=== PATIENT | male | born 1975 | race Caucasian/White ===

== ENCOUNTER → 2018-07-28 17:24 | Outpatient (REF) | payer BC, SELFPAY ==
[2018-07-28 22:23] LABS: ALT 32 U/L (12-78); AST 20 U/L (15-37); Albumin 4.3 g/dL (3.4-5.0); Alkaline Phosphatase 68 U/L (46-116); Anion Gap 4.6 mmol/L (3-11); BUN 17 mg/dL (7-18); Bilirubin, Total 0.7 mg/dL (0.2-1.0); CO2 31.4 mmol/L (21.0-32.0); CREATININE 1.18 mg/dL (0.70-1.30); Calcium 8.8 mg/dL (8.5-10.1); Chloride 104 mmol/L (98-107); Cholesterol 177 mg/dL (50-200); Glucose 84 mg/dL (70-100); HDL Cholesterol 52 mg/dL (40-60); LDL CHOLESTEROL 105 mg/dL (<100); Potassium 4.4 mmol/L (3.5-5.1); Sodium 140 mmol/L (136-145); Total Protein 7.3 g/dL (6.4-8.2); Triglyceride 113 mg/dL (30-150)
[2018-07-28 22:39] LABS: Hemoglobin A1C 4.9 % (4.5-6.2)
== END ==
LOC: NCHCN 17:24
PROVIDERS: PCP Internal Medicine; Visit Provider Family Medicine
DX: Z00.00 Encounter for general adult medical examination without abnormal findings (principal); G40.909 Epilepsy, unspecified, not intractable, without status epilepticus; E66.3 Overweight
CPT/HCPCS: 80053; 80061; 83721; 83036

== ENCOUNTER 2020-02-15 17:30 | Outpatient (REF) | payer MEDICAID, SELFPAY ==
[2020-02-15 21:14] LABS: HGB 14.5 g/dL (13.5-17.5); Mean Corp. HGB Concentration 33.7 g/dL (32.0-36.0); Mean Corpuscular Hemoglobin 29.5 pg (27.0-33.0); Mean Corpuscular Volume 87.4 fL (80-95); Mean Platelet Volume 9.8 fL (8.0-11.0); Platelet Count 318 x1000/uL (130-400); RBC 4.92 m/cumm (4.50-6.00); RBC Distribution Width 14.1 % (11.8-14.1); White Blood Cell Count 6.71 k/cumm (4.4-10.8)
[2020-02-15 21:35] LABS: ALT 38 U/L (16-63); AST 20 U/L (15-37); Albumin 4.1 g/dL (3.4-5.0); Alkaline Phosphatase 68 U/L (46-116); Anion Gap 7.9 mmol/L (3-11); BUN 13 mg/dL (7-18); Bilirubin, Total 0.3 mg/dL (0.2-1.0); CO2 30.1 mmol/L (21.0-32.0); CREATININE 1.27 mg/dL (0.70-1.30); Calcium 8.9 mg/dL (8.5-10.1); Chloride 105 mmol/L (98-107); Glucose 93 mg/dL (74-106); Potassium 3.8 mmol/L (3.5-5.1); Sodium 143 mmol/L (136-145); TSH (W/Ref FT4) 1.17 uIU/mL (0.36-3.74); Total Protein 7.5 g/dL (6.4-8.2)
[2020-02-17 04:36] LABS: Vitamin D 25 Total 19.5 ng/ml (30-100)
== END 2020-02-15 17:50 ==
LOC: NCHCN 17:30
PROVIDERS: PCP Internal Medicine; Visit Provider Family Medicine
DX: G40.909 Epilepsy, unspecified, not intractable, without status epilepticus (principal); R53.83 Other fatigue
CPT/HCPCS: 80053; 82306; 85027; 84443

== ENCOUNTER 2021-03-06 12:10 | Outpatient (REF) | payer MEDICAID, SELFPAY ==
[2021-03-07 14:14] LABS: COVID-19 RT-PCR UVMMC Result Negative (Negative)
== END 2021-03-06 12:11 | disposition home or self-care (01) ==
LOC: NCHCN 12:10
PROVIDERS: PCP Internal Medicine; Visit Provider Internal Medicine
DX: Z20.822 Contact with and (suspected) exposure to COVID-19 (principal); R05 Cough
CPT/HCPCS: U0003

== ENCOUNTER 2024-08-11 19:37 | Inpatient (IN) | payer BC, SELFPAY ==
[2024-08-11] VITALS (8 sets, daily range): BP systolic 117–136; BP diastolic 67–79; PULSE 96–109; RESP 12–18; TEMP 36.9–37.8; O2SAT 94–96
--- NOTE | 2024-08-11 20:05 | W.ED.GENAD ---
Discharge Plan Disposition Patient Disposition: Admit to [facility] Condition: Serious Discharge Details Chief Complaint: Fever Clinical Impression: Fever and neutropenia Primary Care Provider: Cholo Whitfield ED Provider: Shawanda Christensen Home Meds and New Rx's Prescriptions: No Action lamotrigine 200 mg tablet 200 mg PO BID Qty: 180 3RF Vimpat 200 mg tablet 100 mg PO BID Qty: 90 3RF ibuprofen 200 mg capsule 400 mg PO TID-QID PRN sulfamethoxazole-trimethoprim 800-160 mg tablet 1 tab PO DAILY Patient Comments: fri, fri acyclovir 400 mg tablet 400 mg PO BID allopurinol 300 mg tablet 300 mg PO DAILY prednisone 50 mg tablet 100 mg PO DAILY ondansetron 8 mg tablet,disintegrating 8 mg PO BID prochlorperazine maleate [Compazine] 10 mg tablet 10 mg PO TID sennosides [senna] 8.6 mg tablet 8.6 mg PO QD-BID PRN omeprazole 20 mg capsule,delayed release(DR/EC) 20 mg PO DAILY loratadine [Claritin] 10 mg tablet 10 mg PO DAILY HPI General Mode of arrival: ambulatory. Date/Time Provider Initiated Documentation: 08/11/24 19:43. Limitations to Documentation: no limitations. Information obtained by: patient, RN notes reviewed and old records reviewed. HPI Narrative: 48-year-old male with a past medical history of lymphoma presents to the ER with fever. He reports Advil was taken at 1845, he reports midepigastric pain. He did have a first round of chemotherapy on August 04. He also reports that his sister was just diagnosed with COVID. He denies any cough shortness of breath or any other associated symptoms. Reported fever at home was 101.9. Related Data Home Medications ?Medication ?Instructions ?Recorded ?Confirmed lamotrigine 200 mg tablet 200 mg PO BID #180 tabs 08/19/23 08/11/24 Vimpat 200 mg tablet (lacosamide) 100 mg (1/2 x 200 mg) PO BID #90 03/02/24 08/11/24 tabs acyclovir 400 mg tablet 400 mg PO BID 08/11/24 08/11/24 allopurinol 300 mg tablet 300 mg PO DAILY 08/11/24 08/11/24 ibuprofen 200 mg capsule 400 mg PO TID-QID PRN 08/11/24 08/11/24 loratadine 10 mg tablet (Claritin) 10 mg PO DAILY 08/11/24 08/11/24 omeprazole 20 mg capsule,delayed 20 mg PO DAILY 08/11/24 08/11/24 release ondansetron 8 mg disintegrating 8 mg PO BID 08/11/24 08/11/24 tablet prednisone 50 mg tablet 100 mg PO DAILY 08/11/24 08/11/24 prochlorperazine maleate 10 mg 10 mg PO TID 08/11/24 08/11/24 tablet (Compazine) sennosides 8.6 mg tablet (senna) 8.6 mg PO QD-BID PRN 08/11/24 08/11/24 sulfamethoxazole 800 1 tab PO DAILY 08/11/24 08/11/24 mg-trimethoprim 160 mg tablet Previous Rx's ?Medication ?Instructions ?Recorded lamotrigine 200 mg tablet 200 mg PO BID #180 tabs 08/19/23 Vimpat 200 mg tablet (lacosamide) 100 mg (1/2 x 200 mg) PO BID #90 03/02/24 tabs Allergies Allergy/AdvReac Type Severity Reaction Status Date / Time No Known Allergies Allergy Verified 08/11/24 19:43 General Stated Complaint: Fever CHRISTIE: 2 Review of Systems All systems reviewed & are unremarkable except as noted in HPI and below Constitutional Constitutional: Reports as per HPI, Reports body ache(s), Reports fatigue, Reports fever(s), Reports headache(s) and Reports lethargy ENT Ears, Nose, Mouth, and Throat: Reports headache(s) Musculoskeletal Musculoskeletal: Reports back pain Neurologic Neurologic: Reports headache(s) Endocrine Endocrine: Reports fatigue Exam Narrative Exam Narrative: Constitutional: Alert and oriented x3. Appears stated age. Normal body habitus. Head: Normocephalic, no trauma. Eyes: Pupils PERRL, Red reflex noted, lazy eye. Eyelids symmetrical without lesions, discharge, or swelling. ENT: Bilateral TM's WNL, External ear normal to inspection, no mastoid TTP, swelling, or erythema, Nasal turbinates WNL, no nasal discharge. Normal dentition, Posterior pharynx WNL, no exudate. Chest: RRR, Normal S1, S2, distal pulses intact. Resp: Lungs clear to auscultation bilaterally, no wheezes, rales, or rhonchi. Abdomen: Soft, non-distended, Normoactive bowel sounds all 4 quads. Musculoskeletal: Normal gait, Moves all 4 extremities without difficulty. Skin: No suspicious rashes or lesions. Capillary refill less than 2 sec. Neurologic: Cranial nerves II-XII intact. Alert and oriented x 3. Motor: No deficits noted. Sensory: Intact bilaterally all 4 extremities. Hematologic/Lymphatic: No ecchymosis, no lymphadenopathy. Course Vital Signs Vital signs: Vital Signs Temperature 37.8 C H 08/11/24 19:38 Pulse 109 H 08/11/24 19:38 Respiratory Rate 12 08/11/24 19:38 Blood Pressure 135/79 08/11/24 19:38 Pulse Oximetry 96 08/11/24 19:38 Temperature 37.8 C H 08/11/24 19:38 Temperature Source Oral 08/11/24 19:38 Pulse 109 H 08/11/24 19:38 Respiratory Rate 12 08/11/24 19:38 Respiratory Effort Normal 08/11/24 19:51 Blood Pressure 135/79 08/11/24 19:38 Pulse Oximetry 96 08/11/24 19:38 Oxygen Delivery Method Room Air 08/11/24 19:38 Oxygen Flow Rate 0 08/11/24 19:38 Pain Level 4 08/11/24 19:38 Medical Decision Making 48-year-old male with a past medical history of lymphoma presents to the ER with fever. He reports Advil was taken at 1845, he reports midepigastric pain. He did have a first round of chemotherapy on August 04. He also reports that his sister was just diagnosed with COVID. He denies any cough shortness of breath or any other associated symptoms. Reported fever at home was 101.9. Will do a rapid COVID if it is negative we will send 1 to the lab. Rapid COVID-negative, labs ordered including CBC CMP blood cultures x 2, lactate procalcitonin, chest x-ray. Urinalysis. Received critical result from lab white blood cell count 0.43, ANC count was 0 lactate is within normal limits 1.4, CRP is elevated at 2.81 urine shows no leukocytes no nitrates glucose 100, Fluvid is pending. Blood cultures pending. Lipase added on CT abdomen pelvis. 2155: [facility] [place] results with oncology team. 2236: Spoke with Michelle metz oncology fellow [place] [facility] [place] and details she does recommend admission until negative blood cultures return, and also for broad-spectrum IV antibiotics, she recommends cefepime and filgrastim and Claritin 10mg Daily, these were ordered. Will contact with hospitalist. Negative strep. CT abdomen pelvis shows splenomegaly, no acute abnormality evident. Some significant degenerative changes of the L-spine. Patient is complaining of some back pain. Spoke with Dr. Jimenez who is on for hospitalist regarding patient case and details he agrees to come and evaluate patient in the ER. Patient and family informed of plan of care they verbalized understanding. Patient to be admitted for neutropenic fever. This text was generated using Yunzhisheng[employer] system, please disregard any oddities of phrase or misspellings. Medical Records Medical records reviewed: Yes I reviewed the patient's medical records. Imaging Data Radiologic Study: Imaging: CT Scan Radiologist's impression: IMPRESSION: No acute abnormality evident. Incidentally noted mild splenomegaly as well as significant degenerative changes of the lumbosacral junction of the spine Thank you for allowing us to participate in the care of your patient. Dictated and Authenticated by: Dante Mills MD 08/11/2024 10:58 PM Eastern Time ([place] & [place]) Radiologic Study #2: Imaging: X-Ray Radiologist's impression: COMPARISON: No relevant prior studies available. FINDINGS: Tubes, catheters and devices: Left IJ infusion port in good position with the tip in the superior vena cava. Lungs: Unremarkable. No consolidation. Pleural spaces: Unremarkable. No pleural effusion. No pneumothorax. Heart/Mediastinum: Unremarkable. No cardiomegaly. Bones/joints: Unremarkable. IMPRESSION: No acute disease Lab Data Lab results reviewed: Yes I reviewed the patient's lab results. Labs: 08/11/24 21:20 Blood Blood Culture - Pending 08/11/24 21:03 Blood Blood Culture - Pending Laboratory Tests Range/Units 08/11/24 08/11/24 21:03 21:10 WBC (4.4-10.8) 10^3/uL 0.43 L* RBC (4.36-5.78) 10^6/uL 3.87 L Hgb (13.5-17.5) g/dL 11.7 L Hct (40.0-50.0) % 34.7 L MCV (80-95) fL 90 MCH (27.0-33.0) pg 30.2 MCHC (32.0-36.0) % 33.7 RDW (11.8-14.1) % 12.3 Plt Count (130-400) 10^3/uL 148 MPV (8.0-11.0) fL 9.3 Immature Gran % % 0.0 Neutrophils % % 0.0 Lymphocytes % % 72.0 Atypical Lymphs % % 4 Monocytes % % 6.0 Eosinophils % % 18.0 Basophils % % 0.0 Nucleated RBC % (0.0-0.3) % 0.0 Absolute Neutrophils (1.2-6.7) 10^3/uL 0.00 L* Absolute Lymphocytes (1.2-3.4) 10^3/uL 0.33 L Absolute Monocytes (0.1-0.8) 10^3/uL 0.03 L Absolute Eosinophils (0.0-0.7) 10^3/uL 0.08 Absolute Basophils (0.0-0.2) 10^3/uL 0.00 RBC Morphology Normal VBG Lactate (0.6-1.4) mmol/L 1.4 Sodium (136-145) mmol/L 138 Potassium (3.5-5.1) mmol/L 3.5 Chloride (98-107) mmol/L 102 Carbon Dioxide (21.0-32.0) mmol/L 31.6 Anion Gap (3-11) mmol/L 4.4 BUN (7-18) mg/dL 13 Creatinine (0.70-1.30) mg/dL 0.9 Est GFR (CKD-EPI 2020) (mL/min/1.73m2) 104.05 Glucose (74-106) mg/dL 110 H Calcium (8.5-10.1) mg/dL 8.9 Total Bilirubin (0.2-1.0) mg/dL 1.08 H AST (15-37) U/L 12 L ALT (16-63) U/L 22 Alkaline Phosphatase (46-116) U/L 76 C-Reactive Protein (<or=0.5) mg/dL 2.81 H Total Protein (6.4-8.2) g/dL 6.4 Albumin (3.4-5.0) g/dL 3.4 Procalcitonin ng/mL 0.1 Urine Color (Yellow) Yellow Urine Clarity (Clear) Sl Cloudy Urine pH (5-8) 8.5 H Ur Specific [place] (1.005-1.025) 1.020 Urine Protein (Neg-Trace) mg/dL Negative Urine Ketones (Negative) mg/dL Negative Urine Blood (Negative) Negative Urine Nitrite (Negative) Negative Urine Bilirubin (Negative) Negative Urine Urobilinogen (Up to 0.2) mg/dL >=8.0 H Ur Leukocyte Esterase (Negative) Negative Urine Glucose (Negative) mg/dL 100 H Quality:SDOH Health Related Social Needs: No Data to Display PFSH All Active Problems (Updated 08/11/24 @ 22:27 by Shawanda Christensen NP) Fever and neutropenia (Acute) Lymphoma (Acute) Depressive disorder (Chronic) Hand paresthesia (Acute) Wax in ear (Acute) Fatigue (Acute) Memory loss (Acute) Partial epilepsy (Acute) New onset headache (Acute) Medical History (Updated 08/11/24 @ 22:27 by Shawanda Christensen NP) Seizure, temporal lobe Lazy eye Surgical History History of cranial surgery L temporal lobectomy for seizures H/O vasectomy History of back surgery x3 at [facility]; last in 2003? Family History Father Diabetes Mother Alzheimer disease Sister Diabetes Social History Smoking/Tobacco Use Status: Never Smoking risk assessment performed?: Yes Alcohol Intake: never Details: OCCASTIONAL Substance use type: marijuana Details: CBD pen Household members: significant other Housing: house Number of Children: 3 current occupation: [employer] in [place] What is your relationship status?: Panel score (0-1 are the most socially isolated patients): 0 What type of physical activity do you participate in: walking Seatbelt use: always Do you feel safe at home: Yes Do you feel safe in your relationship?: Yes
--- NOTE | 2024-08-11 20:30 | DI.RAD_ITS ---
Exam(s) XR PORTABLE CHEST AP EXAM: XR PORTABLE CHEST AP CLINICAL HISTORY: Fever TECHNIQUE: 2D digital imaging was performed. COMPARISON: No exams were available for comparison FINDINGS: Port noted over left chest. LUNGS: Clear. No pleural abnormality seen. HEART: Normal size. AORTA: Normal diameter. BONES: Unremarkable for age. Soft tissues: Unremarkable. IMPRESSION: No acute findings. DATA REPOSITORY: RADIATION DOSE DELIVERED:
--- OUTSIDE RECORDS SUMMARY | 2024-08-11 20:34 | XMS_ITS | Continuity of Care Document ---
Author Organization [facility] Address [address] [place] [address] Care Team Providers Care Sewing Department Supervisor Name Role Phone [facility] Primary [facility] Physician [facility] [id number] Date(s): 05/13/24 - 05/13/24 [facility] [address] [place] [address] Discharge Disposition: Home or Self Care Attending Physician: Moisés Chery MD Admitting Physician: Moisés Chery MD Referring Physician: Moisés Chery MD Allergies, Adverse Reactions, Alerts No Known Medication Allergies Assessment and Plan Future Scheduled Tests Radiology* MRI Knee w/o Contrast Right 04/21/24 * US Biopsy Muscle 05/07/24 Immunizations Given and Recorded Vaccine Date Status Refusal Reason SARS-CoV-2 (COVID-19) mRNA-1273 vaccine 04/24/21 R ecorded SARS-CoV-2 (COVID-19) mRNA-1273 vaccine 03/28/21 R ecorded influenza virus vaccine, live 08/31/20 Recorded tetanus/diphth/pertuss (Tdap) adult/adol 03/09/20 Recorded Medications lamoTRIgine 200 mg oral tablet 200 mg = 1 tab, Oral, BID, # 180 tab, 0 Refill(s) Start Date: 06/27/22 Status: Ordered Vimpat 200 mg oral tablet Oral, BID, 1/2 tablet, 0 Refill(s) Start Date: 06/27/22 Status: Ordered Problem List Condition Confirmation Course Effective Dates Status Health St atus Informant Memory loss Confirmed Active Cough Confirmed Active Depressive disorder Confirmed 03/09/20 Active Epilepsy Confirmed 02/29/20 Active Fatigue Confirmed Active New onset headache Confirmed Active Heel pain Confirmed Active Lazy eye Confirmed 03/09/20 Active Neck swelling Confirmed Active Non-smoker Confirmed 06/22/21 Active Obstructive sleep apnea Confirmed Active Acute pain of right knee Confirmed Active Hand paresthesia Confirmed Active Seizure, temporal lobe Confirmed Active Wax in ear Confirmed Active Procedures Procedure Date Related Diagnosis Body Site Status Temporal lobe surgery 1998 Com pleted Procedure on back 1 Compl eted 13x Results Laboratory List Name Date Automated Diff 05/13/24 CBC w/ Diff 05/13/24 PT/ INR 05/13/24 Most recent to oldest [Reference Range]: 1 WBC [5.0-10.0 x10^3/mcL] 5.9 x10^3/mcL (05/13/24 4:03 PM) RBC [4.6-6.0 x10^6/mcL] 4.7 x10^6/mcL (05/13/24 4:03 PM) Neutro Auto [40.0-75.0 %] 60.0 % (05/13/24 4:03 PM) Lymph Auto [20.0-50.0 %] 29.8 % (05/13/24 4:03 PM) [place] Auto [2.0-15.0 %] 6.3 % (05/13/24 4:03 PM) Basophil Auto [0.0-1.0 %] 0.5 % (05/13/24 4:03 PM) Prothrombin Time [9.0-11.0 seconds] 10.6 seconds (05/13/24 4:03 PM) INR 1.1 1 *NA* (05/13/24 4:03 PM) MCV [80.0-96.0 fL] 87.3 fL (05/13/24 4:03 PM) MCHC [31.0-35.0 g/dL] 34.6 g/dL (05/13/24 4:03 PM) Hct [41.0-51.0 %] 40.7 % *LOW* (05/13/24 4:03 PM) MCH [26.0-32.0 pg] 30.3 pg (05/13/24 4:03 PM) Neutro Absolute 3.6 x10^3/mcL *NA* (05/13/24 4:03 PM) Hgb [14.0-18.0 g/dL] 14.1 g/dL (05/13/24 4:03 PM) Platelets [130-450 x10^3/mcL] 229 x10^3/ mcL (05/13/24 4:03 PM) RDW-CV [11.5-14.5 %] 13.0 % (05/13/24 4:03 PM) Imm Gran Auto [0.0-0.9 %] 0.5 % (05/13/24 4:03 PM) Eos, Auto [1.0-6.0 %] 2.9 % (05/13/24 4:03 PM) 1Interpretive Data: INR 2-2.5 Prophylaxis: Short term DVT INR 2-3 Prophylaxis: hip and femur surgery Therapy: DVT (3 mos) PE (3-6 mos) TIA (buttermaker) Atr Fib (nursing home) Syst. emb post RI Mitral Stenosis with emboli (buttermaker) Tissue prosthetic valves (3 mos min) INR 3-4.5 Therapy: recurrent DVT, PE (buttermaker) Prosthetic heart valves (nursing home) Social History Social History Type Response Smoking Status Smoking tobacco use: Never tobacco user;Never entered on: 01/08/24 Sex Male Patient Care team information Care Team Personnel Name: Danie Fuentes DO Position: PowerChart View Only Member Role: Primary Care Physician Address: Address: [place] [facility] [address] Care Team Related Persons Name: MELISSA MCKEON Address: Alternate [address] [facility] [id number] Address: Home [address] [facility] [id number] Name: LOBITO ARREDONDO Address: Home [address] [place] [phone]
--- OUTSIDE RECORDS SUMMARY | 2024-08-11 20:34 | XMS_ITS | Continuity of Care Document ---
Author Organization [facility] Address [address] [place] [address] Care Team Providers Care Lacquer Coater Name Role Phone Geeta [facility] Primary Care Physician [phone] [facility] [id number] Date(s): 05/06/24 - 05/06/24 [facility] [address] [place] [address] Discharge Disposition: Home Allergies, Adverse Reactions, Alerts No Known Medication Allergies Assessment and Plan Future Scheduled Tests Radiology* MRI Knee w/o Contrast Right 04/21/24 * XR Knee 3 Views Right 04/29/24 * US Biopsy Muscle 05/07/24 Immunizations Given [...] Procedure on back 1 Compl eted 13x Social History Social History Type Response Smoking Status Smoking tobacco use: Never tobacco user;Never entered on: 01/08/24 Sex Male Patient Care team information Care Team Personnel Name: Danie Fuentes DO Position: PowerChart View Only Member Role: Primary Care Physician Address: Address: [place] [address]- Name: Smita Allison MD Position: No Access Member Role: Informed Provider Address: Address: [place] [address]- Care Team Related Persons Name: MELISSA MCKEON Address: [facility] [address] [facility] [phone] Address: Home [address] [facility] [phone] Name: LOBITO ARREDONDO Address: Home [address] [facility] [id number]
--- OUTSIDE RECORDS SUMMARY | 2024-08-11 20:34 | XMS_ITS | Continuity of Care Document ---
Author Organization [facility] Address [address] [place] [address] Care Team Providers Care Email Campaign Specialist Name Role Phone Geeta [facility] Primary [facility] Physician [facility]counter [facility] Date(s): 04/21/24 - 04/21/24 [facility] [address] [place] [address] Discharge Disposition: Home Allergies, Adverse Reactions, Alerts No Known Medication Allergies Assessment and Plan Future Scheduled Tests Radiology* CT Neck Soft Tissue w/ Contrast 04/22/24 * MRI Knee w/o Contrast Right 04/21/24 Immunizations Given and Recorded Vaccine Date Status [...] Care team information Care Team Personnel Name: Geeta YANDanie DO Position: PowerChart View Only Member Role: Primary Care Physician Address: Address: [facility] [place] [address]- Name: Smita Allison MD Position: No Access Member Role: Informed Provider Address: Address: [address] [address]- Care Team Related Persons Name: LOBITO ARREDONDO Address: Home [address] [facility] [phone]
--- OUTSIDE RECORDS SUMMARY | 2024-08-11 20:34 | XMS_ITS | Continuity of Care Document ---
Author Organization [facility] Address [address] [place] [address] Care Team Providers Care Detail Manager Name Role Phone [facility] Primary [facility] Physician En[facility] [id number] Date(s): 04/22/24 - 04/22/24 [facility] [address] [place] [address] Discharge Disposition: Home Allergies, Adverse Reactions, Alerts [...] Member Role: Primary Care Physician Address: Address: [facility] [place] [address]- Name: Smita Allison MD Position: No Access Member Role: Informed Provider Address: Address: [address] [address]- Care Team Related Persons Name: LOBITO ARREDONDO Address: Home [address] [facility] [phone]
--- OUTSIDE RECORDS SUMMARY | 2024-08-11 20:34 | XMS_ITS | Continuity of Care Document ---
Author Organization [facility] Address [address] [place] [address] Care Team Providers Care Diet Kitchen Cook Name Role Phone [facility] Primary Care Physician [facility] [id number] Date(s): 05/04/24 - 05/04/24 [facility] [address] [place] [address] Encounter Diagnosis Neck swelling(Discharge Diagnosis) - 05/04/24 Discharge Disposition: Home or Self Care Attending Physician: Moisés Chery MD Admitting Physician: Moisés Chery MD Referring Physician: Moisés Chery MD Allergies, Adverse Reactions, Alerts No Known Medication Allergies Assessment and Plan Future Scheduled Tests Radiology* MRI Knee w/o Contrast Right 04/21/24 * XR Knee 3 Views Right 04/29/24 Immunizations Given and Recorded Vaccine Date Status [...] team information Care Team Personnel Name: [facility] Position: PowerChart View Only Member Role: Primary Care Physician Address: Address: [place] [address]- Name: Smita Allison MD Position: No Access Member Role: Informed Provider Address: Address: [address] Care Team Related Persons Name: MELISSA MCKEON Address: [facility][1] [address] [facility] [phone] Address: Home [address] [facility] [phone] Name: LOBITO ARREDONDO Address: Home [address] [facility] [phone]
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
--- OUTSIDE RECORDS SUMMARY | 2024-08-11 20:35 | XMS_ITS | Continuity of Care Document ---
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 Allergies, Adverse Reactions, Alerts No Known Medication Allergies Immunizations Given and Recorded Vaccine Date Status [...] [facility] atus Informant Memory loss Confirmed Active Depressive disorder Confirmed 03/09/20 Active Epilepsy Confirmed 02/29/20 Active Fatigue Confirmed Active New onset headache Confirmed Active Heel pain Confirmed Active 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
--- OUTSIDE RECORDS SUMMARY | 2024-08-11 20:35 | XMS_ITS | Clinical Summary ---
Author Organization [facility] Address [address] [place] [address] Care Team Providers Care Veterinary Medicine Scientist Name Role Phone Unknown, Provider Primary Care Provider Encounters Date Type Department Care Team Description 05/21/2024 Lab Requisition [facility] [address] [address] Catracho Hernandez MD Encounter for other general examination 05/19/2024 Lab Requisition [facility] [address] [address] Moisés Chery Encounter for other general examination 05/19/2024 Lab Requisition [facility] [address] [address] Moisés Chery MD Encounter for other general examination 05/19/2024 Lab Requisition [facility] [address] [address] Dwain Leroy MD Encounter for other general examination from Last 3 Months Social History Tobacco Use Types Packs/Day Years Used Date Smoking Tobacco: Never Assessed Sex and Gender Information Value Date Recorded Sex Assigned at Not on file Gender Identity Not on file Sexual Orientation Not on file Plan of Treatment Health Maintenance Due Date Last Done Comments Hepatitis C Screen 1975 Hepatitis B Vaccine (1 of 3 - 19+ 3-dose series) 10/27 COVID-19 Vaccine (2022- season) 2024 Procedures Procedure Name Priority Date/Time Associated Diagnosis Comments LEUKEMIA/LYMPHOMA PANEL BY FLOW CYTOMETRY Today 05/19/2024 17:26 EDT Encounter for other general examination SURGICAL PATHOLOGY Today 05/19/2024 13 :45 EDT Encounter for other general examination NON CONSULTING UTILITY FORESTER/FNA CYTOLOGY Today 05/19/2024 13:45 EDT Encounter for other general examination MISCELLANEOUS TEST, [facility] Today 05/19/2024 13:45 EDT Encounter for other general examination from Last 3 Months Results * LEUKEMIA/LYMPHOMA PANEL BY FLOW CYTOMETRY (05/19/2024 17:26 EDT) Final Immunophenotypic Interpretation Right cervical mass, flow cytometric analysis: - An aberrant [id number] B-cell population is identified. 14:30 [facility] Attestation By the signature below, the attending physician certifies that they have 1) personally conducted a gross and/or microscopic examination of the described specimen(s), and/or personally interpreted the results of laboratory testing of the described specimen(s), and 2) personally rendered or confirmed the above diagnosis. 14:30 [facility] Amendment electronically signed by Catracho Hernandez MD on 05/20/2024 at 1430 at 1422 Clinical History 48 yo male with neck mass 14:30 [facility] Description Gating is performed using CD45 fluorescence and side scatter. Cellular viability (assessed by 7-AAD exclusion) is excellent (96.8%) among cells with CD45 and side scatter properties typical of lymphocytes and excellent (95.6%) among CD45+ events overall. Scatter plots incorporating all of the markers have been interpreted and evaluated for the presence or absence of abnormal cell populations. Only pertinent abnormal findings are included. If not otherwise addressed all other markers were normal/negative. Lymphocytes constitute 94% of total analyzed cells. An aberrant Yetter light chain-restricted B-cell population is identified (33% of total lymphocytes), expressing CD10, CD19 and CD20 with a high side scatter; while negative for CD5 and Lambda light chain expression. 4 14:30 EDT [facility] Flow Markers CD10, CD19, CD20, CD3, CD4, CD45, CD5, CD8, Yetter, and Lambda. 14:30 EDT [facility] FDA Disclaimer This test was developed and its performance characteristics determined by the Department of Pathology and Laboratory Medicine, [facility], [place], [place]. It has not been cleared or approved by the U.S. Food and Drug Administration. FDA does not require this test to go through premarket FDA review. This test is used for clinical purposes. It should not be regarded as investigational or for research. This laboratory is certified under the Clinical Laboratory Improvement Amendments (CLIA) as qualified to perform high complexity clinical laboratory testing. 14:30 EDT [facility] Scanned Images 14:30 T [facility] ZZUNK SOFT TISSUE MASS / Unknown 05/19/2024 17:26 EDT 05/20/2024 7:24 EDT Moisés Chery MD PATHOLOGY ORDERABLES Performing Organization Address City/State/[facility] Co de Phone Number [facility] [address] [place] [phone] * NON CONSULTING UTILITY FORESTER/FNA CYTOLOGY (05/19/2024 13:45 EDT) Note to Patient The following pathology results have been interpreted by your pathologist and may be available to you before your health provider has had the opportunity to review them. Please allow time for your provider to receive these results and explore management options, if applicable. 05/24/2024 16:45 EDT [facility] Final Diagnosis A. NECK MASS (3 CM), RIGHT, IMMEDIATELY ADJACENT TO SUBMANDIBULAR GLAND, ULTRASOUND-GUIDED FINE NEEDLE ASPIRATION: - Atypical lymphocytes present. See comment. 05/24/2024 16:45 EDT [facility] Diagnosis Comment Please refer to the concurrent flow cytometry and surgical pathology specimens for further characterization ([id number], [id number]). The technical component of the specimen processing was performed at the [facility] Department, [address] [facility] [facility], [place], [place] [address] (CLIA [id number]). The professional component of the specimen evaluation (slide review and issuing of the final diagnosis) was performed at [facility], [address] [place] [address] (CLIA License Number [id number]). 05/24/2024 16:45 [facility] Attestation By the signature below, the attending physician certifies that they have personally conducted a gross and/or microscopic examination of the described specimens and rendered or confirmed the above diagnosis. 05/24/2024 16:45 [facility] at 1645 Rapid Diagnosis A.NECK MASS,3 CM,RIGHT,IMMEDIATE LY ADJACENT TO SUBMANDIBULAR GLAND,ULTRASOUND GUIDED FINE NEEDLE ASPIRATION: Evaluation Episode 1: Pass 1: Mostly dispersed population of small blue cells,probably background lymphoglandular bodies. Recommend cores for surgical pathology and flow cytometry. The above rapid on site evaluation was performed by pathologist Dr. Francis Rhodes at [facility], [address] [place] [id number]. 05/19/2024; 1345 05/24/2024 16:45 [facility] Clinical History 3cm mass immediately adjacent to but separate from left submandibular gland 05/24/2024 16:45 [facility] Gross Description A. 1 fixed prepared slides, 2 air dried prepared slides, and 1 tube of CytoLyt were received and processed by selective cellular enhancement technique. 05/24/2024 16:45 [facility] Performing Lab [facility] 16:45 [facility] Scanned Images 05/24/2024 16:45 [facility] ZZUNK SOFT TISSUE / Unknown 05/19/2024 13:45 EDT 05/20/2024 6:19 EDT Dwain Leroy MD PATHOLOGY ORDERABLES [facility] [address] [place] [address] * SURGICAL PATHOLOGY (05/19/2024 13:45 EDT) Note to Patient The following pathology results have been interpreted by your pathologist and may be available to you before your health provider has had the opportunity to review them. Please allow time for your provider to receive these results and explore management options, if applicable. 05/27/2024 11:41 EDT [facility] Final Diagnosis A. MASS, ADJACENT TO RIGHT SUBMANDIBULAR GLAND, CORE BIOPSY: - Large B-cell lymphoma. See comment. 05/27/2024 11:41 EDT [facility] Diagnosis Comment Histologic sections demonstrate minute fragments of tissue showing a proliferation of lymphocytes that are large in size with round to irregular nuclear contours, vesicular chromatin, and a variable amount of cytoplasm. By immunohistochemical staining, these cells are positive for CD20, BCL6, CD21, and CD23; they are negative for BCL2, MYC, CD30, and DASHA. Proliferation rate by Ki-67 is 40%. CD3 highlights background T-cells. Concurrent flow cytometric analysis ([id number]) shows a CD10 positive, kappa-restricted B-cell population that by light scatter criteria, are large in size. FISH for MYC rearrangements were performed (send out to [facility]) and showed no MYC rearrangement and no fusion of MYC and IGH was observed. Taken together, the findings show involvement by a large B-cell lymphoma and diagnostic considerations include follicular large B-cell lymphoma (FLBCL, WHO 2022; formerly follicular lymphoma grade 3B) and diffuse large B-cell lymphoma (DLBCL), germinal center subtype. Making the distinction between FLBCL and DLBCL is difficult on such a small biopsy, with limited architecture to evaluate. Additionally, the lymphoma cells are positive for CD21 and CD23, precluding definitive assessment for the presence or absence of follicular dendritic meshworks. If clinically indicated, obtaining additional tissue, preferably an excisional biopsy with submission of tissue for flow cytometry, is recommended. Occupational Therapy Aide slides of this case were reviewed at the intradepartmental consultation conference. 05/27/2024 11:41 T [facility] Attestation By the signature below, the attending physician certifies that they have 1) personally conducted a gross and/or microscopic examination of the described specimen(s), and/or personally interpreted the results of laboratory testing of the described specimen(s), and 2) personally rendered or confirmed the above diagnosis. 05/27/2024 11:41 [facility] at 1141 Preliminary result electronically signed by Millicent Chris MD on 05/25/2024 at 1533 Ancillary Studies Immunoperoxidase stains were performed on this case to further characterize the lesion. ANTIBODY(CLONE) (BLOCK):RESULT CD3 (SP7, [employer]) (A1): SEE ABOVE DISCUSSION CD20 (L26, [place]) (A1): BCL-6 (G/191E/A8, [place]) (A1): BCL-2 Oncoprotein (124, [place]) (A1): Myc (Y69, [employer]cam) (A1): CD30 (Dilip-H2, [place]) (A1): Ki67 (MIB-1) (K2, Leica) (A1): CD21 (2G9, Leica) (A1): CD23 (SP23, [place]) (A1): DASHA PURA (FVQ2298-Y, Leica) (A1): NOTE: One or more of the reagents used in immunoperoxidase testing in this case may not have been cleared or approved by the U.S. Food and Drug Administration (FDA). The FDA has determined that such clearance or approval is not necessary. These tests are used for clinical purposes. They should not be regarded as investigational or for research. These reagents' performance characteristics have been determined by [facility] and/or by the referring laboratory. The positive and negative controls worked appropriately. If immunoperoxidase staining has been performed on alcohol fixed cytology specimens, which has not been fully validated, the assays should be interpreted with caution and correlated with clinical data. This laboratory is certified under the Clinical Laboratory Improvement Amendments of 1988 (CLIA-88) as qualified to perform high complexity clinical laboratory testing. 05/27/2024 11:41 [facility] Clinical History 3 cm mass immediately adjacent to but separate from R submandibular gland 05/27/2024 11:41 [facility] Gross Description A. Received in formalin labelled with proper patient identification (initials C, D) and not otherwise specified are 2 pacheco-white wispy tissue cores (each 0.35 cm in length, and each less than 0.1 cm in diameter). Received in the same specimen container is an aggregate of pacheco-white wispy tissue core fragments (0.2 x 0.1 x 0.1 cm). The tissue cores are entirely submitted in A1 and the aggregate is entirely submitted in A2. Yuli Gallardo 05/20/2024 9:35 05/27/2024 11:41 EDT [facility] Performing Lab [facility] 05/27/2024 11:41 EDT [facility] Scanned Images 05/27/2024 11:41 EDT [facility] Tissue SOFT TISSUE / Unknown 05/19/2024 13:45 EDT 05/20/2024 7:17 EDT Moisés Chery PATHOLOGY ORDERABLES [facility] [address] [place] [address] * MISCELLANEOUS TEST, [facility]IM[facility] (05/19/2024 13:45 EDT) Miscellaneous Test, [facility] SEE NOTE 05/27/2024 7:16 EDT [facility] Comment: Test ?Result ?Flag ??Unit ??RefValue B-cell Lymphoma, FISH, Tissue ??Result Summary ?Negative ?Interpretation ?SEE NOTE ?No MYC rearrangement and no fusion of MYC and IGH was ?observed, therefore this makes unlikely the possibility of ?high-grade B-cell lymphoma with MYC and BCL2 and/or BCL6 ?rearrangements (double-hit lymphoma; Eddie et al., WHO ?Classification of Tumours of Haematopoietic and Lymphoid ?Tissues, [employer]:[place], 2017). ?Clinical and pathologic correlation is recommended. ?FISH studies interpreted in consultation with Lexii Castillo ?Danielle Gardner, Ph.D. ??Result Table ?SEE NOTE ? Abnormality Name ? Result ?Abn% ??Cutoff% ? 8q24.1(MYC sep) ?Normal ?<25.0 ? t(8;14) MYC/IGH fusion ? Normal ?<15.0 ?Result ?Interphase FISH is normal for all loci studied. ??Reason for Referral ? DLBCL ?Specimen ?Tissue, Paraffin, Formalin ??Source ?Right cervical mass ??Tissue ID ? [id number] ?Method ?SEE NOTE ?Locus and probes ?[Strategy;#Nuclei;Vendor] ?8CEN(D8Z2),8q24.1(MYC),14q32(IGH) ?[DFISH;100;AM] ?8q24.1(5'MYC,3'MYC) ?[BAP;100;AM] ?Probe strategies include: ?DFISH=dual color, double fusion; ?BAP=break-apart probe. ?Scoring Method: Manual ?Probe vendors include: ?AM = [employer] ([place], [place]) ??Additional Information ?SEE NOTE ?A portion of the testing process was performed at [facility] site [id number]. ??Disclaimer ?SEE NOTE ?This test was developed and its performance characteristics ?determined by [facility] in a manner consistent with CLIA ?requirements. This test has not been cleared or approved by ?the U.S. Food and Drug Administration. This test is ?intended to be used as an adjunct to existing clinical and ?pathologic information and is not intended as a sole ?diagnostic or screening assay. Since only a portion of the ?tumor was evaluated, it is possible the result obtained may ?not represent the entire tumor population. Testing results ?are optimized for non-decalcified paraffin embedded ?specimens with a cold ischemia time of less than 1 hour, ?fixed in 10% neutral buffered formalin between 6 and 72 ?hours; results obtained from specimens fixed outside these ?parameters should be interpreted accordingly. This test ?does not rule out other chromosome or molecular ?abnormalities. ??Released By ? Yuli L. Sami, M.D. ?Test Performed by: ?[facility] ?[address] [place] [address] ?Publications Inspector: Roberto Key Ph.D.; IA# [id number] Tissue TISSUE SPECIMEN / Unknown 05/19/2024 13:45 EDT 05/21/2024 15:24 EDT Catracho Finnegan MD CHEMISTRY & BLOOD GA S ORDERABLES [facility] [address] [place] [address] from Last 3 Months Care Teams Veterinary Medicine Scientist Relationship Specialty Start Date End Date Unknown, Provider, PCP - General 09/11/15
--- OUTSIDE RECORDS SUMMARY | 2024-08-11 20:35 | XMS_ITS | Encounter Summary ---
Author Organization [facility] Address [address] [place] [address] Care Team Providers Care Secretary Name Role Phone Unavailable Primary Care Provider Unavailabl e Encounter Details Date Type Department Care Team (Latest Contact Info) Description 09/01/2015 7:31 EDT - 09/01/2015 23:59 EDT Hospital Encounter [facility] [address] [place] [address] Unknown, Provider, Discharge Disposition: Home or Self Care Social History Tobacco Use Types Packs/Day Years Used Date Smoking Tobacco: Never Assessed Sex and Gender Information Value Date Recorded Sex Assigned at Not on file Gender Identity Not on file Sexual Orientation Not on file documented as of this encounter Discharge Disposition Disposition Code Departure Means Destination Home or Self Senior Living documented in this encounter Plan of Treatment Not on file documented as of this encounter Visit Diagnoses Not on filedocumented in this encounter
--- OUTSIDE RECORDS SUMMARY | 2024-08-11 20:35 | XMS_ITS | Continuity of Care Document ---
Author Organization [facility] Address [address] [place] [address] Care Team Providers Care Microsoft Crm Developer Name Role Phone [facility]eta [facility] Primary Care Physician [phone] Encounter [facility] Date(s): 05/07/24 - 05/07/24 [facility] [address] [place] [address] Discharge Disposition: Home Allergies, Adverse Reactions, Alerts [...] Member Role: Primary Care Physician Address: Address: [place] [address]- Name: Smita Allison MD Position: No Access Member Role: Informed Provider Address: Address: [place] [address]- Care Team Related Persons Name: MELISSA MCKEON Address: [facility] [address] [facility] [id number] Address: Home [address] [facility] [id number] Name: LOBITO ARREDONDO Address: [address] [phone]
--- OUTSIDE RECORDS SUMMARY | 2024-08-11 20:35 | XMS_ITS | Encounter Summary ---
Author Organization [facility] [place] [address] Care Team Providers Care Belling Machine Operator Name Role Phone ConnorDanie willis Primary Care Provider [phone] Encounter Details Date Type Department Care Team (Latest Contact Info) Description 08/11/2024 Travel Social History Tobacco Use Types Packs/Day Years Used Date Smoking Tobacco: Never Smokeless Tobacco: Never Alcohol Use Standard Drinks/Week Comments No 0 (1 standard drink = 0.6 oz pur e alcohol) IPV Inpatient Questions Answer Date Recorded Prevent Contact [...] Encounters Date Type Department Care Team (Late st Contact Info) Description 08/25/2024 9:00 AM EDT Office Visit Hematology/Oncology at [address] [phone] Pia Cooper MD [facility] [address] [place] [address] Shayla Vuong APRN [facility] [place] [address] 08/25/2024 9:30 AM EDT Scheduled View Only Hematology/Oncology at [address] [phone] Ekta Womack RN 08/25/2024 9:30 AM EDT Infusion Hematology Oncology at [address] [address] documented as of this encounter Visit Diagnoses Not on filedocumented in this encounter Care Teams Belling Machine Operator Relationship Specialty Start Date End Date Danie Connor DO [address] [place] [address] PCP - General Family Medicine 06/04/24 documented as of this encounter
--- OUTSIDE RECORDS SUMMARY | 2024-08-11 20:35 | XMS_ITS | Encounter Summary ---
Author Organization [facility] Address [address] [place] [address] Care Team Providers Care Systems Programmer Name Role Phone Unknown, Provider Primary Care Provider Encounter Details Date Type Department Care Team (Late st Contact Info) Description 03/06/2021 Lab Requisition [facility] Pathology & Laboratory Medicine - [address] [address] Outr Resulting Lab, Provider Social History Tobacco Use Types Packs/Day Years Used Date Smoking Tobacco: Never Assessed Sex and Gender Information Value Date Recorded Sex Assigned at Not on file Gender Identity Not on file Sexual Orientation Not on file documented as of this encounter Plan of Treatment Not on file documented as of this encounter Procedures Procedure Name Priority Date/Time Associated Diagnosis Comments ZZCOVID-19 TEST [facility] PCR Today 03/06/2021 9:10 EDT COVID-19 TESTING Routine 03/06/2021 9:10 EDT documented in this encounter Results * COVID-19 TEST [facility] PCR (03/06/2021 9:10 EDT) Swab ENTIRE NASOPHARYNX / Unknown 03/06/2021 9:10 EDT 03/06/2021 20:46 EDT Provider Outr Resulting Lab MICROBIOLOGY - GENERAL ORDERABLES [facility] [address] [place] [address] * COVID-19 TESTING (03/06/2021 9:10 EDT) COVID-19 rt-PCR Result Negative Negative 03/07/2021 14:08 EDT [facility] Comment: This test has not been FDA cleared or approved. This test has been authorized by FDA under an EUA for use by authorized laboratories. This test has been authorized only for detection of nucleic acid from 2019-nCoV, not for any other viruses or pathogens. This test is only authorized for the duration of the declaration that circumstances exist justifying the authorization of emergency use of in vitro diagnostic tests for detection and/or diagnosis of 2019-nCoV under section 564(b)(1) of Act, 21 U.S.C ?? 360bbb-3(b) (1), unless the authorization is terminated or revoked sooner. Negative results do not preclude 2019-nCoV infection and should not be used as the sole basis for treatment or other patient management decisions. Negative results must be combined with clinical observations, patient history, and epidemiological information. Testing was performed using the beulah SARS-CoV-2 assay ([employer] on the Beulah 6800 System Performing Lab [place] [address] [facility] 03/07/2021 14:08 EDT [facility] Swab 03/06/2021 9:10 EDT 03/06/2021 20:46 EDT Provider Outr Resulting Lab MICROBIOLOGY - GENERAL ORDERABLES [facility] [address] [place] [address] documented in this encounter Visit Diagnoses Not on filedocumented in this encounter Care Teams Systems Programmer Relationship Specialty Start Date End Date Unknown, Provider, PCP - General 09/11/15 documented as of this encounter
--- OUTSIDE RECORDS SUMMARY | 2024-08-11 20:35 | XMS_ITS | Encounter Summary ---
Author Organization [facility] [place] [address] Care Team Providers Care Global Implementation Manager Name Role Phone Geeta Danie Bustos Primary Care Provider [phone] Encounter Details Date Type Department Care Team (Late st Contact Info) Description 08/04/2024 8:00 AM EDT Office Visit Hematology/Oncology at [address] [phone] Shayla Vuong APRN [facility] [address] [place] [address] Need for pneumocystis prophylaxis; 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 of multiple regions; High risk medication use Social History Tobacco Use Types Packs/Day Years [...] on file documented as of this encounter Last Filed Vital Signs Vital Sign Reading Time Taken Comments Blood Pressure - - Pulse 77 08/04/2024 7:53 AM EDT Temperature 36 ??C (96.8 ??F) 08/04/2024 7:53 AM EDT Respiratory Rate 16 08/04/2024 7:53 AM EDT Oxygen Saturation 99% 08/04/2024 7:53 AM EDT Inhaled Oxygen Concentration - - Weight 90.7 kg (200 lb) 08/04/2024 7:53 AM EDT Height 168.9 cm (5' 6.5) 08/04/2024 7:53 AM EDT Body Mass Index 31.8 08/04/2024 7:53 AM EDT documented in this encounter Progress Notes * [place], Shayla M, [employer] - 08/04/2024 8:00 AM EDT OUTPATIENT HEMATOLOGY/ ONCOLOGY CONSULTATION HISTORY PRESENT ILLNESS This patient is a 48 y.o. male presenting for evaluation of lymphoma, with differential between high grade follicular and DLBCL. Initial Presentation (06/11/24): 48M w/ seizure disorder presents for evaluation of lymphoma. He had strep throat a few months ago, and was seen at doctors office. Due to pain in the area, he was palpating his neck, and found a hard submandibular mass. The doctor appropriately treated with antibiotics, and figured it was reactive. However, it increased in size (or did not resolve) after several weeks so a CT was performed, which showed the suspicious LN. That led to a core biopsy. He feels well. No constitutional symptoms. No throat pain or swallowing difficulties. Relevant PMHx/ risk factors: Seizure disorder Work up/ Pertinent Data Core biopsy- sheets of large cells, consistent with either follicular 3B or DLBCL Excisional Biopsy 06/28/24 A - Right submandibular mass Diffuse large B-cell lymphoma- NOS PET 06/25/24 1. An FDG avid right sided level 2A cervical lymph node is suspicious for a site of lymphoma. 2. There is asymmetrically increased activity in the right submandibular gland. Asymmetric salivarygland activity may be a physiologic variant but involvement by lymphoma is also a consideration. 3. No active lymphoma is identified in the chest, abdomen or pelvis. ECHO 06/24/24 - LVEF 56% Treatment Course Galo- R-CHP initiated on 08/04/24 INTERIM HISTORY Brett returns to clinic today in routine follow-up and in anticipation of initiation of systemic therapy with Galo-R-CHP today for his newly diagnosed DLBCL. It has been ~ 1 week since he was last seen in [place] by Dr. Herr. His care is being transferred to [facility] for convenience. Since our last visit, he denies changes to his baseline health. No fevers, chills, recurrent infections orintercurrent illnesses. No drenching sweats, unintentional weight loss or new enlarging palpable adenopathy. He underwent placement of a mediport on 07/27/24 in the upper left chest wall without complications. He does describe some pruritus from the tegaderm dressing. He is anxious to get therapy started today. No new health-related concerns expressed today. SOCIAL HISTORY- reviewed with significant changes noted Works at [employer] MEDICATIONS AND ALLERGIES- reviewed at this visit Medications 08/04/24 6269 Medication Sig Taking? Vimpat 200 mg Tablet Take 1/2 (one-half) tablet by mouth twice daily Yes lamoTRIgine (LaMICtal) 200 mg Tablet Take 1 tablet by mouth 2 times daily. Yes sulfamethoxazole-trimethoprim DS (Bactrim DS) 800-160 mg tablet One tablet every Fri, Fri acyclovir (Zovirax) 400 mg tablet Take 1 tablet by mouth 2 times daily. Patient not taking: Reported on 08/04/2024 allopurinoL (Zyloprim) 300 mg tablet Take 1 tablet by mouth daily for 30 days. Take for the first month of chemotherapy by mouth to prevent tumor lysis Patient not taking: Reported on 08/04/2024 prochlorperazine (Compazine) 10 mg tablet Take 1 tablet by mouth every 6 hours as needed for Nausea. Take every 6 hrs as needed for nausea Patient not taking: Reported on 08/04/2024 predniSONE (Deltasone) 50 mg tablet Take 2 tablets by mouth daily. Take on days 2-5 of each cycle of chemotherapy by mouth Patient not taking: Reported on 08/04/2024 ondansetron (Zofran) 8 mg tablet Take 1 tablet by mouth every 8 hours as needed for Nausea. Patient not taking: Reported on 08/04/2024 PAST MEDICAL HISTORY- reviewed Patient Active Problem List Diagnosis Code Seizure R56.9 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 of multiple regions C83.38 COMPREHENSIVE REVIEW OF SYSTEMS Besides what is mentioned in the HPI, all other systems are negative PHYSICAL EXAMINATION Vital signs: Pulse 77 Temp 36 ??C (96.8 ??F) (Temporal) Resp 16 Ht 168.9 cm (5' 6.5) Wt 90.7 kg (200 lb) SpO2 99% BMI 31.80 kg/m?? Constitutional/General: well-developed, well-nourished, well-appearing 48 year old male in NAD EENT: anicteric sclera, oropharnyx clear without hyperemia, exudative plaques or lesions. Neck/Thyroid: mild submandibular swelling on right at site of biopsy [unchanged] Lungs: clear to auscultation bilaterally Heart: RRR, normal S1/S2, no murmurs/rubs/gallops Abdomen: soft, non-distended, non-tender to palpation, no masses or HSM. NABS LN: no palpable adenopathy Ext: no edema Neurologic: moving all extremities spontaneously, grossly intact LABORATORY EVALUATION Recent Results (from the past 24 hour(s)) External Chemistry Lab Results Result Value Ref Range Creatinine - External 1.1 Potassium - External 3.6 AST (SGOT) - External 15 ALT (SGPT) - External 29 Total Bilirubin - External 0.54 LDH - External 191 External Hematology Lab Results Result Value Ref Range WBC - External 5.23 Hemoglobin - External 14.1 Hematocrit - External 41.6 Platelets - External 204 Neutr ABS (ANC) - External 3.28 RADIOLOGY: No new images reviewed today ASSESSMENT/PLAN: Brett Campos is a 48 y.o. male presents with what is now known to be DLBCL. Since our last visit, PET/CT has suggested disease localized to unilateral submandibular gland and possibly unilateral cervical lymph node. Excisional biopsy of submandibular mass revealed DLBCL. We discussed his overall disease, its natural course, treatment options, expected benefit, treatment intention, and side effect profile. Overall, treatment will be with curative intent. Based on our current imaging and pathology, he is either a stage 1 or 2 depending on if the cervical LN is involved. With this in mind, we plan to start systemic therapy with Galo-R-CHP. We plan to present his case at our lymphoma tumor board regarding the utility of radiation in his case. Anticipate overall either 6 cycles of systemic therapy or a truncated systemic therapy with addition of radiation based oninterval PET after cycle 4. - Proceed with initiation of Galo-R-CHP today as scheduled - Will give Allopurinol for TLS prophylaxis with cycle #1 - Udenyca support of day 2 of cycle [Neulasta-ONPRO not approved by insurance] - start PJP prophylaxis with Bactrim DS 1 tab daily on Friday, Friday and Fridays - start Acyclovir 400mg BID for suppression of herpes viruses - RTC in 2 weeks for a mid-cycle check - RTC in 3 weeks for initiation of cycle #3 - Brett was reminded that we remain available in the interim should questions/concerns arise - General medical care and age appropriate health screenings remain under the direction of DO Shayla Main, MSN, [employer] Nurse Practitioner Section of Hematology Cc: Danie oCnnor DO * Shayla Vuong APRN - 08/04/2024 8:00 AM EDT PATIENT ID: Brett Campos is a 48 y.o. male with Diffuse Large B-cell Lymphoma who presents today for chemotherapy teaching and initiation of cycle #1 of therapy. The plan is for Galo-R-CHP given every 21 days for 4-6 cycles. The following information was reviewed with the patient and family. Chemotherapy Drugs: Polatuzumab IV infused over 90 minutes on day 1 of cycle 1 and over 30 minutes for subsequent cycles Rituxan IV infusion lasting multiple hours given on day 1 of cycle with the possibility of decreasing infusion time to 90 minutes with subsequent cycles Cyclophosphamide IV infused over 30 minutes on day 1 of cycle Adriamycin IV push each syringe over a minimum of 3 minutes on day 1 of cycle Prednisone 50mg tablets. Take 2 tablets by mouth once daily with breakfast days 2-5. First dose will be given in clinic with chemotherapy on day 1 of each cycle Chemotherapy Schedule: chemotherapy is given in the outpatient setting on day 1 of a 21-day cycle Laboratory Tests: Prior to start of each cycle of chemotherapy: complete blood count, comprehensive metabolic profile, LDH, uric acid Mid-cycle check: complete blood count Restaging PET/CT following completion of four cycles of therapy Clinic Visits: at initiation of each chemotherapy cycle and with mid-cycle check for cycle #1 only Possible Side Effects include, but are not limited to: Polatuzumab: infusion reactions, myelosuppression, risk of infection, decreased appetite, nausea/vomiting, diarrhea, constipation, mouth sores, peripheral neuropathy, fatigue, headache, fever, cough,dyspnea Rituxan: infusion reactions, neutropenia, thrombopenia, lymphopenia, risk of reactivation of viral illnesses, anaphylaxis, PML, fatigue Cyclophosphamide: fatigue, N/V, immunosuppression, increased risk for infection, hair thinning/loss, rare hemorrhagic cystitis, cardiac dysfunction and pulmonary fibrosis. Adriamycin: fatigue, N/V, bone marrow suppression, risk for infection, alopecia, cardiomyopathy, oral sores, extravasation Vincristine: constipation, peripheral neuropathy, jaw pain Prednisone: increased energy, difficulty sleeping, increased appetite, weight gain, thrush, mood changes or irritability, hyperglycemia, hypertension, benson facies and body habitus changes, gastritis,increased risk of infection, cataracts and osteoporosis. Medications: please cloth picker the following prescriptions before you start treatment Allopurinol 300mg tablet - Take 1 tablet by mouth daily during cycle #1 to help protect kidneys andprocess the cellular debris as lymphoma cells in response to chemotherapy Prednisone 50mg tablets. Take 2 tablets by mouth once daily with breakfast days 2-5. First dose will be given in clinic with chemotherapy on day 1 of each cycle Acyclovir 400mg tablet - Take 1 tablet by mouth twice daily throughout chemotherapy course to minimize reactivation of viral illnesses Bactrim DS tablets - Take 1 tablet by mouth on Friday, Friday and Fridays to minimize risk of PJP pneumonia Compazine 10mg tablets - Take 1 tablet every 6 hours as needed for nausea/vomiting. Stool softener - Take 1 tablet by mouth daily to twice daily as needed to minimize constipation Senna tablet - Take 2 tablet by mouth daily to twice daily as needed to maintain daily bowel movement and avoid constipation Additional Education Tumor Lysis Syndrome: discussed the importance of hydration and allopurinol to TLS prophylaxis Chemotherapy induced alopecia Neutropenic Precautions: reviewed neutropenic precautions and use of Peg- Filgrastim to minimize depth and duration of neutropenia thereby decreasing potential risk of infection Hydration/Nutrition: Discussed the importance of adequate hydration, caloric and protein intake to heal from the effects of chemotherapy Fatigue and Exercise: Fatigue can be cumulative, meaning it can become worse with each treatment. Ways to manage fatigue include light exercise, maintaining a daily routine with rest periods, allowing your body to recover and avoiding overexertion. Safety while undergoing Chemotherapy women, children and pets should avoid contact with chemotherapy or contaminated waste Caregivers should always were gloves if coming in contact with bodily fluids Sexual Activity Chemotherapy can be harmful to an unborn baby. The use of control during cancer treatment is recommended if there is child bearing potential. Women should not breastfeed while undergoing chemotherapy. Traces of chemotherapy in bodily fluids may be present up to 72 hrs after receiving treatment. A barrier method, such as a condom, is recommended for intercourse during this time. Plan Brett Campos was provided with patient education sheets on these chemotherapeutic agents to review at home. He was provided with the [employer] booklet Chemotherapy and You: Support for People with Cancer. Brett and his family members were given an opportunity to ask questions and verbalized an unders tanding of the chemotherapy side effects and treatment self-care strategies and consent to proceed with treatment as planned. Chemotherapy is scheduled to begin today, August 04, 2024. Testing/Diagnostics Baseline blood work and echo were reviewed and are adequate for treatment Symptom Management/Supportive care Nausea prevention: Rx for Zofran, Compazine Constipation prevention: Recommended Colace and Senna Udenyca will be administered on day 2 of the cheno cycle Prophylaxis: Acyclovir, Bactrim DS 50 of this 60 minute visit was spent in counseling and education of the above information. All questions were answered to satisfaction. Brett Campos was counseled on how to call for any further questions or concerns. Shayla Vuong, MSN, [employer] Nurse Practitioner Section of Hematology/Oncology documented in this encounter Plan of Treatment Upcoming Encounters Date Type Department Care Team (Late st Contact Info) Description 08/25/2024 9:00 AM EDT Office Visit Hematology/Oncology at [address] [phone] Pia Cooper MD [facility] HEMATOLOGY [place] [address] Shayla Vuong APRN [facility] HEMATOLOGY [place] [address] 08/25/2024 9:30 AM EDT Scheduled View Only Hematology/Oncology at [address] [phone] Ekta Womack RN 08/25/2024 9:30 AM EDT Infusion Hematology Oncology at [address] [phone] Scheduled Orders Name Type Priority Associated Diagnoses Orde r Schedule Amylase Lab STAT 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 of multiple regions High risk medication use As Needed for 12 Occurrences starting 08/04/2024 until 08/04/2025 Lipase Lab STAT 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 of multiple regions High risk medication use As Needed for 12 Occurrences starting 08/04/2024 until 08/04/2025 documented as of this encounter Procedures Procedure Name Priority Date/Time Associated Diagnosis Comments EXTERNAL HEMATOLOGY LAB RESULTS Routine 08/04/2024 EXTERNAL CHEMISTRY LAB RESULTS Routine 08/04/2024 documented in this encounter Results * External Hematology Lab Results (08/04/2024) WBC - External 5.23 Hemoglobin - External 14.1 Hematocrit - External 41.6 Platelets - External 204 Neutr ABS (ANC) - External 3.28 08/04/2024 Historical Provider MD PEDRO JEFFRIES * External Chemistry Lab Results (08/04/2024) Creatinine - External 1.1 Potassium - External 3.6 AST (SGOT) - External 15 ALT (SGPT) - External 29 Total Bilirubin - External 0.54 LDH - External 191 08/04/2024 Historical Provider MD PEDRO JEFFRIES documented in this encounter Visit Diagnoses Diagnosis Need for pneumocystis prophylaxis Need for other prophylactic chemotherapy 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 of multiple regions High risk medication use Encounter for long-term (current) use of other medications documented in this encounter Care Teams Global Implementation Manager Relationship Specialty Start Date End Date Danie Connor DO [address] [place] [phone] PCP - General Family Medicine 06/04/24 documented as of this encounter
--- OUTSIDE RECORDS SUMMARY | 2024-08-11 20:35 | XMS_ITS | Encounter Summary ---
[place] [address] Care Team Providers Care Magnetic Observer Name Role Phone Geeta Danie Bustos Primary Care Provider [phone] Encounter Details Date Type Department Care Team (Late st Contact Info) Description 08/11/2024 Telephone Hematology [place] [phone] Michelle Cast MD [facility] [address] HEMATOLOGY/[place] [address] Social History Tobacco Use Types Packs/Day Years Used Date Smoking Tobacco: Never Smokeless Tobacco: Never Alcohol Use Standard Drinks/Week Comments No 0 (1 standard drink = 0.6 oz pur e alcohol) [facility] Inpatient Questions Answer Date Recorded Prevent Contact [...] on file documented as of this encounter Miscellaneous Notes * Telephone Encounter - Michelle Cast MD - 08/11/2024 6:58 PM EDT BRIEF COMMUNICATION WITH PATIENT'S CAREGIVER: Brett Campos is a 48yo M with DLBCL. He follows with Dr. Nemesio MD and Shayla Vuong APRN in the outpatient setting. He is currently on Galo-R-CHP. His last infusion was on 08/05/24. Per chart review he had seen Shayla Vuong APRN earlier in the day. Bloodwork was remarkable for neutropenia. Hematology was paged by the patient's caregiver as the patient was observed to have a fever of 101.9F and chills. I provided the patient's caregiver emotional support and recommended they proceed to the local ED for infectious workup in the setting of neutropenia. The patient's caregiver understood and agreed to the plan. Thank you for involving me in the care of the patient. Please call with any questions or concerns. CC-Dr. Nemesio MD and CLEMENTE Law MD [facility] [place] [facility] Hematology/Oncology Fellow [facility] Pager#[phone] documented in this encounter Plan of Treatment Upcoming Encounters Date Type Department Care Team (Late st Contact Info) Description 08/25/2024 9:00 AM EDT Office Visit Hematology/Oncology at [address] [phone] Pia Cooper MD [facility] [address] [place] [address] Shayla Vuong APRN [facility] [address] [place] [address] 08/25/2024 9:30 AM EDT Scheduled View Only Hematology/Oncology at [address] [phone] Ekta Womack RN 08/25/2024 9:30 AM EDT Infusion Hematology Oncology at [address] [phone] documented as of this encounter Visit Diagnoses Not on filedocumented in this encounter Care Teams Magnetic Observer Relationship Specialty Start Date End Date Danie Connor DO [address] [place] [phone] PCP - General Family Medicine 06/04/24 documented as of this encounter
--- OUTSIDE RECORDS SUMMARY | 2024-08-11 20:35 | XMS_ITS | Continuity of Care Document ---
Author Organization [facility] Address [address] [place] [address] Care Team Providers Care Forestry Support Specialist Name Role Phone Geeta ORDanie Barros Primary Care Physician Encounter [facility] Date(s): 02/12/24 - 02/12/24 [facility] [address] [place] [address] Encounter Diagnosis Viral URI(Discharge Diagnosis) - 02/12/24 Discharge Disposition: Home or Self Care Attending Physician: Jairon Mtz MD Admitting Physician: Jairon Mtz MD Allergies, Adverse Reactions, Alerts No Known Medication Allergies Assessment and Plan Extracted from: Title:ED Provider Note Author:Jairon Mtz MD Date:02/12/24 Assessment/Plan 1.??Viral URI??J06.9 Orders: Discharge Patient, 02/12/24 6:06:00 EDT, Home Independently, Constant Indicator Patient Education Upper Respiratory Infection, Adult Follow Up With When Contact Information Follow up with primary care provider Only if needed Additional Instructions: Extracted from: Title:Clinical Document Author:Lacey Oliver te:02/12/24 Diagnosis: 1. Viral URI Comment: Immunizations Given and Recorded Vaccine Date Status Refusal Reason SARS-CoV-2 (COVID-19) mRNA-1273 vaccine 04/24/21 R ecorded SARS-CoV-2 (COVID-19) mRNA-1273 vaccine 03/28/21 R ecorded influenza virus vaccine, live 08/31/20 Recorded tetanus/diphth/pertuss (Tdap) adult/adol 03/09/20 Recorded Medications lamoTRIgine 200 mg oral tablet 200 mg = 1 tab, Oral, BID, # 180 tab, 0 Refill(s) Start Date: 06/27/22 Status: Ordered Mucinex 600 mg oral tablet, extended release 600 mg = 1 tab, Oral, every 12 hr, X 10 days, # 20 tab, 0 Refill(s), 02/22/24 4:32:00 AM CDT Start Date: 02/12/24 Stop Date: 02/22/24 Status: Ordered Vimpat 200 mg oral tablet [...] Procedure on back 1 Compl eted 13x Vital Signs Most recent to oldest [Reference Range]: 1 Temperature Tympanic [36.6-38.1 Deg C] 3 6.3 Deg C *LOW* (02/12/24 5:23 AM) Heart Rate Monitored [60-100 bpm] 79 bpm (02/12/24 5:23 AM) Respiratory Rate [12-24 br/min] 18 br/mi n (02/12/24 5:23 AM) Blood Pressure [90-140/60-90 mmHg] 131/8 8mmHg (02/12/24 5:23 AM) Mean Arterial Pressure, Cuff [65-140 mmH g] 102 mmHg (02/12/24 5:23 AM) Weight 86 kg (02/12/24 5:23 AM) Weight Dosing 86.000 kg (02/12/24 5:23 AM) Social History Social History Type Response Smoking Status Smoking tobacco use: Never tobacco user;Never entered on: 01/08/24 Sex Male Hospital Discharge Instructions Patient Education 02/12/2024 05:07:20 Upper Respiratory Infection, Adult Upper Respiratory Infection, Adult An upper respiratory infection (URI) is a common viral infection of the nose, throat, and upper airpassages that lead to the lungs. The most common type of URI is the common cold. URIs usually get better on their own, without medical treatment. What are the causes? A URI is caused by a virus. You may catch a virus by: ??? Breathing in droplets from an infected person's cough or sneeze. ??? Touching something that has been exposed to the virus (is contaminated) and then touching your mouth, nose, or eyes. What increases the risk? You are more likely to get a URI if: ??? You are very young or very old. ??? You have close contact with others, such as at work, school, or a health care facility. ??? You smoke. ??? You have long-term (chronic) heart or lung disease. ??? You have a weakened disease-fighting system (immune system). ??? You have nasal allergies or asthma. ??? You are experiencing a lot of stress. ??? You have poor nutrition. What are the signs or symptoms? A URI usually involves some of the following symptoms: ??? Runny or stuffy (congested) nose. ??? Cough. ??? Sneezing. ??? Sore throat. ??? Headache. ??? Fatigue. ??? Fever. ??? Loss of appetite. ??? Pain in your forehead, behind your eyes, and over your cheekbones (sinus pain). ??? Muscle aches. ??? Redness or irritation of the eyes. ??? Pressure in the ears or face. How is this diagnosed? This condition may be diagnosed based on your medical history and symptoms, and a physical exam. Your health care provider may use a swab to take a mucus sample from your nose (nasal swab). This sample can be tested to determine what virus is causing the illness. How is this treated? URIs usually get better on their own within 7???10 days. Medicines cannot cure URIs, but your health care provider may recommend certain medicines to help relieve symptoms, such as: ??? Ohrs-udg-qpmuqlo cold medicines. ??? Cough suppressants. Coughing is a type of defense against infection that helps to clear the respiratory system, so take these medicines only as recommended by your health care provider. ??? Fever-reducing medicines. Follow these instructions at home: Activity ??? Rest as needed. ??? If you have a fever, stay home from work or school until your fever is gone or until your health care provider says your URI cannot spread to other people (is no longer contagious). Your health care provider may have you wear a face mask to prevent your infection from spreading. Relieving symptoms ??? Gargle with a mixture of salt and water 3???4 times a day or as needed. To make salt water, completely dissolve ?1 tsp (3???6 g) of salt in 1 cup (237 mL) of warm water. ??? Use a cool-mist humidifier to add moisture to the air. This can help you breathe more easily. Eating and drinking ??? Drink enough fluid to keep your urine pale yellow. ??? Eat soups and other clear broths. General instructions ??? Take sdjn-dud-fsrzwuy and prescription medicines only as told by your health care provider. These include cold medicines, fever reducers, and cough suppressants. ??? Do not use any products that contain nicotine or tobacco. These products include cigarettes, chewing tobacco, and vaping devices, such as e-cigarettes. If you need help quitting, ask your health care provider. ??? Stay away from secondhand smoke. ??? Stay up to date on all immunizations, including the yearly (annual) flu vaccine. ??? Keep all follow-up visits. This is important. How to prevent the spread of infection to others URIs can be contagious. To prevent the infection from spreading: ??? Wash your hands with soap and water for at least 20 seconds. If soap and water are not available, use hand technical director. ??? Avoid touching your mouth, face, eyes, or nose. ??? Cough or sneeze into a tissue or your sleeve or elbow instead of into your hand or into the air. Contact a health care provider if: ??? You are getting worse instead of better. ??? You have a fever or chills. ??? Your mucus is brown or red. ??? You have yellow or brown discharge coming from your nose. ??? You have pain in your face, especially when you bend forward. ??? You have swollen neck glands. ??? You have pain while swallowing. ??? You have white areas in the back of your throat. Get help right away if: ??? You have shortness of breath that gets worse. ??? You have severe or persistent: ??? Headache. ??? Ear pain. ??? Sinus pain. ??? Chest pain. ??? You have chronic lung disease along with any of the following: ??? Making high-pitched whistling sounds when you breathe, most often when you breathe out (wheezing). ??? Prolonged cough (more than 14 days). ??? Coughing up blood. ??? A change in your usual mucus. ??? You have a stiff neck. ??? You have changes in your: ??? Vision. ??? Hearing. ??? Thinking. ??? Mood. These symptoms may be an emergency. Get help right away. Call 911. ??? Do not wait to see if the symptoms will go away. ??? Do not drive yourself to the hospital. Summary ??? An upper respiratory infection (URI) is a common infection of the nose, throat, and upper air passages that lead to the lungs. ??? A URI is caused by a virus. ??? URIs usually get better on their own within 7???10 days. ??? Medicines cannot cure URIs, but your health care provider may recommend certain medicines to help relieve symptoms. This information is not intended to replace advice given to you by your health care provider. Make sure you discuss any questions you have with your health care provider. Document Revised: 06/19/2022 Document Reviewed: 06/19/2022 [employer] Patient Education ?? 2022 [employer]. Follow Up Care 02/12/2024 05:23:43 With:Follow up with primary care provider Address: When: only if needed Physician Emergency department Note * Jairon Mtz MD: PERFORM Event Display: ED Note Physician Authored Date: [id number] MO MCKEON :1975 Age:48 years Sex:Male Visit Date:02/12/2024 Primary Care Physician: Danie Fuentes DO Basic Information ??No qualifying data available.?? Chief Complaint c/o cough x 3 days. ??sore throat started this morning. ??denies fever or other sx. ??taking OTC mucinex History Of Present Illness: 48-year-old male non-smoker but who lives with a smoker??and is exposed to passive smoke I believe presents because of a 3-day history of a harsh cough.?? His throat was sore this morning also. ??No fever or chills no chest pain no abdominal pain no vomiting and diarrhea or leg swelling.?? Has somenasal congestion.?? He does bring up some mucus.?? Report any shortness of breath.?? 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 ??Does not feel he could work with his symptoms at this time.?? He has used some Mucinex. Review of Systems: Constitutional:??no??fever,? Skin:??no??Jaundice,??no??rash,? ENMT:??no??ear pain,??mild??sore throat,??moderate??congestion,??no??hoarseness Respiratory:??no??shortness of breath,??moderate??cough,??no??orthopnea,??no??wheezing Cardiovascular:??no??chest pain,??no??palpitations,??no??edema Gastrointestinal:??no??nausea,??no??vomiting,??no diarrhea no abdominal pain ?? Musculoskeletal:??no??back pain,??no??trauma Neurologic:??no??headache,??no??dizziness,??no??numbness,??no??weakness ?? Physical Exam Vitals & Measurements T:??36.3?C ??(Tympanic)?? HR:??79??(Monitored)?? RR:??18?? BP:??131/88?? SpO2:??98%?? WT:??86??kg?? O2 Therapy:??Room air?? General:??alert,??no acute distress.?? Does not look septic skin is warm and dry??no respiratory distress??sounds congested Skin:??warm,??dry. Head:??no??trauma,??normocephalic. Neck:??trachea??midline,? Eye:??normal??conjunctiva, sclera??clear.?? Strabismus noted Nose: Congested Mouth and throat: No erythema or exudate or swelling Cardiovascular:??regular??rate and rhythm,??normal??peripheral perfusion. Respiratory: lungs??CTA, respirations??non-labored.?? No adventitious lung sounds.?? Perhaps slightdecreased breath sounds noted. Chest wall:??no??deformity. Gastrointestinal:??soft,??non distended,??no??tenderness,??no??guarding. Extremities:??no??deformity,?? No swelling Neurological:?? , LOC??appropriate for age,?? , speech??normal. Psychiatric:??cooperative, affect??appropriate for age,?? Medical Decision Making: Differential diagnosis includes viral upper respiratory tract infection, no clinical signs of bacterial pneumonia.?? Conceivably could have COVID or RSV or??flu.?? Patient stable here,??no significant comorbidities. ??His sat is 98% on room air.?? Will provide a work note??for the next couple days,will recommend symptomatic treatment,??he can continue with the Mucinex. ??I did suggest Sudafed celena day and NyQuil at night.?Discharged in stable condition Procedure No Qualifying Data Assessment/Plan 1.??Viral URI??J06.9 Orders: Discharge Patient, 02/12/24 6:06:00 EDT, Home Independently, Constant Indicator Patient Education Upper Respiratory Infection, Adult Follow Up With When Contact Information Follow up with primary care provider Only if needed Additional Instructions: Medication Reconciliation Unchanged guaiFENesin (Mucinex 600 mg oral tablet, extended release)1 tab Oral (given by mouth) every 12 hours for 10 Days. ?? lacosamide (Vimpat 200 mg oral tablet)Oral (given by mouth) 2 times a day. 1/2 tablet. ?? lamoTRIgine (lamoTRIgine 200 mg oral tablet)1 tab Oral (given by mouth) 2 times a day. Problem List/Past Medical History Ongoing Cough Depressive disorder Epilepsy Fatigue Hand paresthesia Heel pain Lazy eye Memory loss New onset headache Non-smoker Obstructive sleep apnea Seizure, temporal lobe Wax in ear Historical No qualifying data Procedure/Surgical History ???Temporal lobe surgery (1998)???Procedure on back Allergies No Known Medication Allergies Social History Electronic Cigarette/Vaping Electronic Cigarette Use: Never. Tobacco Never tobacco user Tobacco Use:. Never Smokeless Tobacco use:. Family History Alzheimer's disease: Mother. Dementia: Father. Diabetes mellitus: Father. Electronically Signed on 02/12/24 06:27 AM Jairon Mtz MD Emergency department Discharge instructions * Jairon Mtz MD: PERFORM Event Display: ED Discharge Information Authored Date: [id number] MO MCKEON :1975 Age:48 years Sex:Male Visit Date:02/12/2024 Primary Care Physician: Danie Fuentes DO Discharge Instructions We would like to thank you for allowing us to assist you with your healthcare needs. The following includes patient education materials and information regarding your injury/illness. Diagnosis from Today's Visit Viral URI Discharge Vitals Temperature??(Tympanic) 97.3 ??F (36.3 ??C) Heart Rate??(Monitored) 79 Respiratory Rate?? 18 Blood Pressure?? 131/88?? SpO2?? 98% Weight?? 189.63 lb (86 kg) Allergies No Known Medication Allergies What to Do Next Instructions from Your Care Team you??can continue the Mucinex. ??For the congestion he can also take some Sudafed??in the daytime for the congestion??and NyQuil at night.?? May take some Motrin or Tylenol as needed for body aches or fever or sore throat. ??There should be gradual improvement.?? See work note. You Need to Schedule the Following Appointments Follow Up with??Follow up with primary care provider When:??Only if needed You were treated today on an emergency basis; it may be busby to contact your primary care provider to notify them of your visit today. You may have been referred to your regular doctor or a specialist, please follow up as instructed. If your condition worsens or you can't get in to see the doctor, contact the Emergency Department. Medications What How Much When Instructions Next Dose Unchanged guaiFENesin (Mucinex 600 mg oral tablet, extended release) 1 tab Oral (given by mouth) Every 12 hours Duration: 10 Days Unchanged lacosamide (Vimpat 200 mg oral tablet) Oral (given by mouth) 2 times a day 1/ 2 tablet ?? Unchanged lamoTRIgine (lamoTRIgine 200 mg oral tablet) 1 tab Oral (given by mouth) 2 times a day Education Materials Upper Respiratory Infection, Adult An upper respiratory infection (URI) is a common viral infection of the nose, throat, and upper airpassages that lead to the lungs. The most common type of URI is the common cold. URIs usually get better on their own, without medical treatment. What are the causes? A URI is caused by a virus. You may catch a virus by: ? Breathing in droplets from an infected person's cough or sneeze. ? Touching something that has been exposed to the virus (is contaminated) and then touching your mouth, nose, or eyes. What increases the risk? You are more likely to get a URI if: ? You are very young or very old. ? You have close contact with others, such as at work, school, or a health care facility. ? You smoke. ? You have long-term (chronic) heart or lung disease. ? You have a weakened disease-fighting system (immune system). ? You have nasal allergies or asthma. ? You are experiencing a lot of stress. ? You have poor nutrition. What are the signs or symptoms? A URI usually involves some of the following symptoms: ? Runny or stuffy (congested) nose. ? Cough. ? Sneezing. ? Sore throat. ? Headache. ? Fatigue. ? Fever. ? Loss of appetite. ? Pain in your forehead, behind your eyes, and over your cheekbones (sinus pain). ? Muscle aches. ? Redness or irritation of the eyes. ? Pressure in the ears or face. How is this diagnosed? This condition may be diagnosed based on your medical history and symptoms, and a physical exam. Your health care provider may use a swab to take a mucus sample from your nose (nasal swab). This sample can be tested to determine what virus is causing the illness. How is this treated? URIs usually get better on their own within 7???10 days. Medicines cannot cure URIs, but your health care provider may recommend certain medicines to help relieve symptoms, such as: ? Kxnk-ydx-bxafrzo cold medicines. ? Cough suppressants. Coughing is a type of defense against infection that helps to clear the respiratory system, so take these medicines only as recommended by your health care provider. ? Fever-reducing medicines. Follow these instructions at home: Activity ? Rest as needed. ? If you have a fever, stay home from work or school until your fever is gone or until your health care provider says your URI cannot spread to other people (is no longer contagious). Your health care provider may have you wear a face mask to prevent your infection from spreading. Relieving symptoms ? Gargle with a mixture of salt and water 3???4 times a day or as needed. To make salt water, completely dissolve ?1 tsp (3???6 g) of salt in 1 cup (237 mL) of warm water. ? Use a cool-mist humidifier to add moisture to the air. This can help you breathe more easily. Eating and drinking ? Drink enough fluid to keep your urine pale yellow. ? Eat soups and other clear broths. General instructions ? Take jimh-ctl-apiczvu and prescription medicines only as told by your health care provider. These include cold medicines, fever reducers, and cough suppressants. ? Do not use any products that contain nicotine or tobacco. These products include cigarettes, chewing tobacco, and vaping devices, such as e-cigarettes. If you need help quitting, ask your health careprovider. ? Stay away from secondhand smoke. ? Stay up to date on all immunizations, including the yearly (annual) flu vaccine. ? Keep all follow-up visits. This is important. How to prevent the spread of infection to others URIs can be contagious. To prevent the infection from spreading: ? Wash your hands with soap and water for at least 20 seconds. If soap and water are not available, use hand technical director. ? Avoid touching your mouth, face, eyes, or nose. ? Cough or sneeze into a tissue or your sleeve or elbow instead of into your hand or into the air. Contact a health care provider if: ? You are getting worse instead of better. ? You have a fever or chills. ? Your mucus is brown or red. ? You have yellow or brown discharge coming from your nose. ? You have pain in your face, especially when you bend forward. ? You have swollen neck glands. ? You have pain while swallowing. ? You have white areas in the back of your throat. Get help right away if: ? You have shortness of breath that gets worse. ? You have severe or persistent: ? Headache. ? Ear pain. ? Sinus pain. ? Chest pain. ? You have chronic lung disease along with any of the following: ? Making high-pitched whistling sounds when you breathe, most often when you breathe out (wheezing). ? Prolonged cough (more than 14 days). ? Coughing up blood. ? A change in your usual mucus. ? You have a stiff neck. ? You have changes in your: ? Vision. ? Hearing. ? Thinking. ? Mood. These symptoms may be an emergency. Get help right away. Call 911. ? Do not wait to see if the symptoms will go away. ? Do not drive yourself to the hospital. Summary ? An upper respiratory infection (URI) is a common infection of the nose, throat, and upper air passages that lead to the lungs. ? A URI is caused by a virus. ? URIs usually get better on their own within 7???10 days. ? Medicines cannot cure URIs, but your health care provider may recommend certain medicines to help relieve symptoms. This information is not intended to replace advice given to you by your health care provider. Make sure you discuss any questions you have with your health care provider. Document Revised: 06/19/2022 Document Reviewed: 06/19/2022 Elsevier Patient Education ?? 2022 [employer] Patient/Rotary Cutter Feeder Signature Patient Name:MO MCKEON I have received this information and my questions have been answered. Patient/Rotary Cutter Feeder Name: Patient/Rotary Cutter Feeder Signature: Relationship to Patient: Witness Name/Signature: Date: Electronically Signed on: 02/12/2024 06:07 EDTSigned by:PIETRO Discharge summary * Lacey Oliver: PERFORM Event Display: Discharge Note Authored Date: * Lacey Oliver: PERFORM Event Display: Discharge Note Authored Date: Diagnosis: 1. Viral URI Comment: Electronically Signed on 02/12/24 06:17 AM Lacey Oliver Patient Care team information Care Team Personnel Name: Danie Fuentes DO Position: PowerChart View Only Member Role: Primary Care Physician Address: Address: [address] [address]- [place] Name: Smita Allison MD Position: No Access Member Role: Informed Provider Address: Address: [address] [address] Care Team Related Persons Name: LOBITO ARREDONDO Address: [place] [phone]
--- OUTSIDE RECORDS SUMMARY | 2024-08-11 20:35 | XMS_ITS ---
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 Treatment Medications Current Day (Day 1 , Cycle 2 - Planned for 08/25/2024) Next Day (Day 2, Cycle 2 - Planned for 08/26/2024) cycloPHOSphamide (Cytoxan)cycloPHOSphamide (Cytoxan) in sodium chloride 0.9% 250 mL infusionDOXOrubicin (Adriamycin)polatuzumab vedotin-piiq (Polivy) in sodium chloride 0.9% 100 mL infusion Recon Solnpolatuzumab vedotin-piiq (Polivy) Recon SolnriTUXimab-abbs (Truxima)riTUXimab-abbs (Truxima) (2 mg/mL) in sodium chloride 0.9% infusion cycloPHOSphamide (Cytoxan) 1,500 mg in sodium chloride 0.9% 325 mL infusionDOXOrubicin (Adriamycin) injection 103 mgpolatuzumab vedotin-piiq (Polivy) 150 mg in sodium chloride 0.9% 107.5 mL infusionriTUXimab-abbs (Truxima) 700 mg in sodium chloride 0.9% 350 mL infusion No medications scheduled. Past Plans No past plan information found. Radiation Treatments * No radiation treatments are documented for this patient in [facility]. Treatments may have been administered in another system. Lifetime Dose Tracking * Chemical Lifetime Dose Automatic Entry Manual Entr y doxorubicin 50 mg/m2 (103 mg) 50 mg/m2 (103 mg) 0 mg/ m2 (0 mg)
--- OUTSIDE RECORDS SUMMARY | 2024-08-11 20:35 | XMS_ITS | Encounter Summary ---
Author Organization [facility] [place] [address] Care Team Providers Care Mold Yard Worker Name Role Phone ConnorDanie willis Primary Care Provider [phone] Encounter Details Date Type Department Care Team (Latest Contact Info) Description 08/09/2024 Travel Social History Tobacco Use Types Packs/Day [...] 9:00 AM EDT Office Visit Hematology/Oncology at [address] [phone] Pia Cooper MD [facility] [address] [place] [address] Shayla Vuong APRN [facility] [place] [address] 08/25/2024 9:30 AM EDT Scheduled View Only Hematology/Oncology at [address] [address] Ekta Womack RN 08/25/2024 9:30 AM EDT Infusion Hematology Oncology at [address] [address] documented as of this encounter Visit Diagnoses Not on filedocumented in this encounter Care Teams Mold Yard Worker Relationship Specialty Start Date End Date Danie Connor DO [address] [place] [address] PCP - General Family Medicine 06/04/24 documented as of this encounter
--- OUTSIDE RECORDS SUMMARY | 2024-08-11 20:35 | XMS_ITS | Encounter Summary ---
[place] [address] Care Team Providers Care Business Analyst Ecommerce Name Role Phone Danie Connor DO Primary Care Provider [phone] Reason for Referral * Diagnostic Test (STAT) - Closed Specialty Diagnoses / Procedures Referred By Contac t Referred To Contact Radiology Diagnoses 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 of multiple regions Procedures IR Mediport Placement Brett Herr MD [facility] [address] HEMATOLOGY [place] [address] [facility] [place] [address] Referral ID Status Reason Start Date Expiration Date V isits Requested Visits Authorized [id number] Closed Specialty Service Requested 07/23/2024 01/23/2026 1 1 Reason for Visit * Diagnostic Test (STAT) - Closed Specialty Diagnoses / Procedures Referred By Contac t Referred To Contact Radiology Diagnoses 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 of multiple regions Procedures IR [facility] Placement Brett Herr MD [facility] [address] HEMATOLOGY [place] [address] [facility] [place] [address] Referral ID Status Reason Start Date Expiration Date V isits Requested Visits Authorized [id number] Closed Specialty Service Requested 07/23/2024 01/23/2026 1 1 Encounter Details Date Type Department Care Team (Latest Contact Info) Description 07/27/2024 6:46 AM EDT - 07/27/2024 11:59 PM EDT Hospital [place] [address] Brett Herr MD [facility] HEMATOLOGY [place] [address] 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 of multiple regions Discharge Disposition: Home Social History Tobacco Use Types Packs/Day Years [...] Sign Reading Time Taken Comments Blood Pressure 119/59 07/27/2024 9:30 AM EDT Pulse 64 07/27/2024 9:30 AM EDT Temperature 36.3 ??C (97.4 ??F) 07/27/2024 9:06 AM ED T Respiratory Rate 10 07/27/2024 9:30 AM EDT Oxygen Saturation 97% 07/27/2024 9:30 AM EDT Inhaled Oxygen Concentration - - Weight - - Height - - Body Mass Index - - documented in this encounter Discharge Instructions * Discharge Instructions* Prem Church RN - 07/27/2024 7:38 AM EDT Department of Vascular and Interventional Radiology Discharge Instructions for your Chest Port You have received a ???Power Port?? , which provides access for infusions and blood draws. What makes this a ???Power Port?? is the unique ability to ???power inject?? contrast (intravenous dye) through the port when getting a CT scan, which produces superior images (pictures). Patients who don???t have these special ports need to have an IV started if they need dye injected for their CT scan. Your port is printed with the letters ???CT?? which can be detected by x- ray to identify it as a ???Power Port?? . You will be provided with an ID card stating the set up operator and type of port you have. Please carry this with you in a safe place. Bandage: There is a sterile dressing over the port site consisting of small gauze with a clear dressing (Tegaderm or [id number] ). This dressing should be left in place for 48 hours. If the clear dressing becomes loose you should place tape over the edges to secure it in place. Note: If you have steri-strips beneath your dressing, simply allow them to fall off. Do not peel them off. There may be Port Protection-joy (skin glue) also, allow this to flake off. Pain: Apply ice bag to site (s) at 30 minute intervals (30 minutes on and 30 minutes off) for 24 hours?? . May use as needed for pain and/or bruising after 24 hours. Bathing: Do not take a shower until 48 hours after your port is placed; after this time you may shower with the dressing in place, then remove it and pat your skin dry. After 48 hours, we recommend that you cover the area with THE AQUA GUARD PROVIDED for 1 week while showering, facing away from theshower stream. You may use a bandaid to cover the site after the 48 hours are up if there is any drainage. No tub baths, whirlpools or swimming for one week following port placement. Flushing the mediport: If your port has not been used, it must be flushed every 30 days. What to expect when your port is accessed: 1. You may feel tenderness the first few times it is accessed but generally this subsides over time. Ask your healthcare provider to use a local anesthetic on the site if discomfort is a problem for you. You may ask for a prescription for a topical cream (EMLA) from your clinician; you may apply athome prior to your appointments, to help numb the skin over your port. 2. The clinician should be wearing sterile gloves and a mask during the access procedure. Anyone inthe room with you should also have a mask on. 3. The skin over and 2 inches around the port should be cleaned with a disinfectant 4. Tell the clinician if you would like the skin numbed (lidocaine) before the access needle is placed. 5. Unless you are unable to take heparin (blood thinner), the port should be injected with a heparin solution before deaccess (at end of each treatment or blood draw). When to call your healthcare provider: If you notice bleeding from the puncture site in your neck, or from the port incision on your chest, you should apply firm pressure over the site for 10-15 minutes, keeping the site covered. Call if you are still bleeding after 10-15 minutes. If you develop pain, redness, drainage or swelling at or around the port site, or the puncture sitein the neck If you develop fever (elevation of more than 2 degrees or greater than 101F) and/or shaking chills When to call the Interventional Radiology Department: Please call with any questions or concerns. If it is during regular office hours, please call [phone]. If it is after regular office hours, or on weekends or holidays, please call [phone] and ask to speak to the Bottom Painter application support intern for Interventional Radiology. XXX You have received medication during your procedure to help lessen anxiety and keep you comfortable. These medications affect judgement and reaction time. We recommend that you do not drive, operate equipment, sign any important documents, or smoke unattended for 24 hours following your procedure. Because of the sedation, be careful on stairs, as you may be unsteady on your feet. You may resume your regular diet as tolerated. IV site -- slight redness, or tenderness is normal, you can use a warm compress. If tenderness and redness increases or foul drainage occurs, please contact your M. D. Revised 09/16/19 documented in this encounter Medications at Time of Discharge Medication Sig Dispensed Refills Start Date End Date acyclovir (Zovirax) 400 mg tablet Take 1 tablet by mouth 2 times daily. 180 tablet 3 07/23/2024 allopurinoL (Zyloprim) 300 mg tablet Take 1 tablet by mouth daily for 30 days. Take for the first month of chemotherapy by mouth to prevent tumor lysis 30 tablet 07/23/2024 08/22/2024 prochlorperazine (Compazine) 10 mg tablet Take 1 tablet by mouth every 6 hours as needed for Nausea. Take every 6 hrs as needed for nausea 90 tablet 5 07/23/2024 predniSONE (Deltasone) 50 mg tablet Take 2 tablets by mouth daily. Take on days 2-5 of each cycle of chemotherapy by mouth 48 tablet 07/23/2024 ondansetron (Zofran) 8 mg tablet Take 1 tablet by mouth every 8 hours as needed for Nausea. 60 tablet 5 07/23/2024 Vimpat 200 mg TabletIndications:Re fractory epilepsy Take 1/2 (one-half) tablet by mouth twice daily 60 tablet 3 08/24/2021 lamoTRIgine (LaMICtal) 200 mg TabletIndications:Re fractory epilepsy Take 1 tablet by mouth 2 times daily. 60 tablet 5 02/21/2021 documented as of this encounter Progress Notes * Dolores Nielsen RN - 07/27/2024 11:59 PM EDT Interventional and Vascular Radiology Post-Procedure Call Name: Brett Campos Age: 48 y.o. Sex: Male Date of : 1975 (home) Telephone Information: PCP: Danie Connor DO [phone] Date/Time of call: July 28, 2024/9:00 AM Procedure: Mediport Placement Procedural Provider: ANNELIESE Skinner Message left on answering machine?: Yes * Dia Lizarraga RN - 07/27/2024 8:20 AM EDT ANGIO NURSING DATABASE Name: Brett Campos Date of : 1975 AGE: 48 y.o. [address]: [address] [place] [phone] (home) Mobile: Telephone Information: Referring Provider: Brett Herr REASON FOR VISIT: Order Questions Answers Where will study be performed? [facility] Radiology [120] To be scheduled Ordering department to coordinate scheduling Is the patient on anticoagulant / antiplatelet therapy ? No Reason for exam and clinical history: Needs chemo Planned procedure: Port placement Labs to be performed day of procedure: No labs Sedation: Moderate (Conscious sedation) Prophylactic antibiotic : None Contrast: No contrast Additional medications for procedure: Lidocaine Position: Supine Consent: Pending Medications to discontinue (and days held): None Case Urgency:: G1-Elective Outpatient intervention within 4-7 days No Known Allergies Pertinent PMH: Patient Active Problem List Diagnosis Code Seizure R56.9 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 of multiple regions C83.38 Date/Procedure Meds Given/Comments 07/27/24 left Mediport placement Fentanyl 125 mcg/IV, Versed 2.5 mg/IV. 0752 to procedure room IR6 via stretcher. Onto table supine. All monitors, O2, safety strap in place. Meds per protocol. Laboratory Results: Lab Results Component Value Date INR 1.1 (External Lab) 07/23/2005 Lab Results Component Value Date CREATININE 0.94 06/11/2024 Lab Results Component Value Date K 4.1 06/11/2024 Lab Results Component Value Date PLATELET 227 06/11/2024 documented in this encounter H&P Notes * Gutierrez Skinner PA - 07/27/2024 7:06 AM EDT Interventional Radiology Interval H&P: Procedure: Chest port Update to H&P: The patient's history and physical exam have been reviewed and completed. There has been NO interval change from that of the pre-procedural note done within the last 30 days. Thereis NO change in the procedural plan. Meds: Current medications reviewed. No medications held. Labs: No new relevant labs. Physical Exam: General: Awake, alert, oriented Cardiovascular: Regular, Normal Pulmonary: Breath sounds clear to auscultation The planned procedure (and sedation plan if appropriate), its benefits and risks, and alternatives were discussed with the patient. The patient consented to the procedure. The indications for the procedure are still present. Pre-sedation Assessment: Sedation Plan: moderate (conscious sedation) ASA: 2: Patient with mild systemic disease Mallampati: II: tonsillar pillars are blocked by the tongue Confirm NPO status: Yes History of anesthetic complications: No Current medications reviewed: Yes Allergies reviewed: Yes Source Note - Donaldo Jha DO - 07/24/2024 10:51 AM EDT Images from the original note were not included. INTERVENTIONAL RADIOLOGY FOCUSED H&P and PRE-PROCEDURE NOTE: PCP: Danie Connor DO Referring Provider: Dr. Herr Planned Procedure: Planned procedure: Port placement Procedure Indication: Need for durable venous access for chemotherapy. Procedure Request: Procedure request received through the Interventional Radiology eDH order queue. Presenting Diagnosis/ Complaint: Brett Campos is a 48 y.o. male with history of lymphoma (either follicular 3B or DLBCL). IR consulted for port placement for durable venous access for chemotherapy. Per chart review the first infusion is on 08/04/2024. Not on any antiplatelets or anticoagulation. Past Medical/Surgical History: Patient Active Problem List Diagnosis Code Seizure R56.9 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 of multiple regions C83.38 No past medical history on file. Past Surgical History: Procedure Laterality Date PRO BIOPSY/EXCISION LYMPH NODE OPEN SUPERFICIAL Right 06/28/2024 BIOPSY OR EXCISION OF LYMPH NODE(S), OPEN, SUPERFICIAL (WRVU 3.79) performed by Dorinda Pastrana MD [facility] MAIN OR Medications: Current Outpatient Medications on File Prior to Visit Medication Sig Dispense Refill acyclovir (Zovirax) 400 mg tablet Take 1 tablet by mouth 2 times daily. 180 tablet 3 allopurinoL (Zyloprim) 300 mg tablet Take 1 tablet by mouth daily for 30 days. Take for the first month of chemotherapy by mouth to prevent tumor lysis 30 tablet 0 prochlorperazine (Compazine) 10 mg tablet Take 1 tablet by mouth every 6 hours as needed for Nausea. Take every 6 hrs as needed for nausea 90 tablet 5 predniSONE (Deltasone) 50 mg tablet Take 2 tablets by mouth daily. Take on days 2-5 of each cycle of chemotherapy by mouth 48 tablet 0 ondansetron (Zofran) 8 mg tablet Take 1 tablet by mouth every 8 hours as needed for Nausea. 60 tablet 5 Vimpat 200 mg Tablet Take 1/2 (one-half) tablet by mouth twice daily 60 tablet 3 lamoTRIgine (LaMICtal) 200 mg Tablet Take 1 tablet by mouth 2 times daily. 60 tablet 5 No current facility-administered medications on file prior to visit. Allergies: Patient has no known allergies. Social History and Habits: Social History Socioeconomic History Marital status: Spouse name: Not on file Number of children: Not on file Years of education: Not on file Highest education level: Not on file Occupational History Not on file Tobacco Use Smoking status: Never Smokeless tobacco: Never Vaping Use Vaping status: Never Used Substance and Sexual Activity Alcohol use: No Drug use: Yes Types: Marijuana Comment: VAPE PEN DAILY Sexual activity: Not on file Comment: Deferred Other Topics Concern Not on file Social History Narrative Not on file Social Determinants of Health Financial Resource Strain: Not on file Food Insecurity: Not on file Transportation Needs: Not on file Physical Activity: Not on file Intimate Partner Violence: Unknown (06/28/2024) DH IPV Inpatient Questions Prevent Contact with Others: Not on file Feels Threatened by Someone: Not on file Feels Unsafe at Home: Not on file Physical Signs of Abuse Present: no Housing Stability: Not on file Significant Family History: No family history on file. Pertinent ROS: as per HPI Labs: Lab Results Component Value Date WBC 5.6 06/11/2024 HCT 43.0 06/11/2024 PLATELET 227 06/11/2024 INR 1.1 (External Lab) 07/23/2005 BUN 11 06/11/2024 CREATININE 0.94 06/11/2024 ALKPHOS 61 06/11/2024 AST 14 06/11/2024 ALBUMIN 4.4 06/11/2024 BILIDIR 0.1 11/20/2015 BILITOT 0.6 06/11/2024 ALT 23 06/11/2024 PROT 7.0 06/11/2024 K 4.1 06/11/2024 Imaging: Physical Exam: Pending (to be performed in angio the day of procedure) ASA: Pending (to be assessed in angio the day of procedure) Mallampati Class: Pending (to be assessed in angio the day of procedure) Assessment: 48 y.o. male presents to interventional radiology for port placement. Plan for moderatesedation. Will need consent. Reviewed with Attending: Dr. Pretty Plan: Planned procedure: Port placement Labs to be performed day of procedure: No labs Sedation: Moderate (Conscious sedation) Prophylactic antibiotic : None Contrast: No contrast Additional medications for procedure: Lidocaine Position: Supine Consent: Pending Medications to discontinue (and days held): None Case Urgency:: G1-Elective Outpatient intervention within 4-7 days 07/24/2024 documented in this encounter Plan of Treatment Upcoming Encounters Date Type Department Care Team (Late st Contact Info) Description 08/25/2024 9:00 AM EDT Office Visit Hematology/Oncology at [address] [phone] Pia Cooper MD [facility] DR HEMATOLOGY [place] [address] Shayla Vuong, [employer] PERSONALITY [facility] HEMATOLOGY [place] [address] 08/25/2024 9:30 AM EDT Scheduled View Only Hematology/Oncology at [address] [phone] Ekta Womack RN 08/25/2024 9:30 AM EDT Infusion Hematology Oncology at [address] [phone] documented as of this encounter Procedures Procedure Name Priority Date/Time Associated Diagnosis Comments IR MEDIPORT PLACEMENT STAT 07/27/2024 9:06 AM EDT 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 of multiple regions documented in this encounter Results * IR Mediport Placement (07/27/2024 9:06 AM EDT) Anatomical Region Laterality Modality X-Ray Angiograph y Narrative 07/27/2024 10:39 AM EDT Interventional Radiology Procedure Note Procedure: Chest port implant Indication: Diffuse large B-cell lymphoma, durable custodial central venous access for chemotherapy Procedure summary: 1.) Venous access with ultrasound guidance 2.) Tunneled port insertion under fluoroscopic guidance Pre-procedure: Informed consent for the procedure including risks, benefits, and alternatives was obtained. Active time-out was performed prior to the procedure. Maximum sterile barrier technique was used throughout the procedure. Sedation: The patient received split doses of intravenous midazolam and fentanyl from the interventional radiology nurse while pulse, pressure, and oxygen saturation were continuously monitored. Technique: The patient's neck was sonographically evaluated for potential access sites, and the left internal jugular vein was determined to be patent. Local anesthetic was administered. The vein was accessed via real-time ultrasound and micropuncture set with 21 gauge needle and a permanent image was stored. A 0.018 wire was advanced into superior vena cava. The remainder of the procedure was performed under fluoroscopic guidance. A 4 F introducer sheath was placed and the wire exchanged for a 0.035 J wire. The wire was advanced into the inferior vena cava. Local anesthetic was administered on the anterior chest wall inferolateral to the puncture site. A 2 cm transverse incision was made in the left anterior chest wall, and with blunt dissection the port pocket was created. A trocar was then used to advance the catheter subcutaneously to the venous access site. A 4 F introducer sheath was exchanged for a peel-away sheath over the wire. The wire and inner obturator were removed and the catheter advanced into the superior vena cava under fluoroscopic guidance. The catheter was trimmed to appropriate length and attached to the port. The port was inserted into the pocket and the sheath was removed. Catheter tip location was identified and a permanent image was stored. The port flushed and aspirated well. ??The pocket was closed using a two-layer technique with 2-0 vicryl deep interrupted and 4-0 vicryl running sutures. The skin closed was with dermabond. The port was not left accessed. Medications: Lidocaine 1% 10 mL subcut; lidocaine 2% with epinephrine 1:100,000 10 mL subcut; midazolam 2.5 mg IV; fentanyl 125 mcg IV Contrast: None Fluoroscopy: 3.89 mGy Estimated blood loss: 5 mL Complications: No immediate Impression: 1.) Patent left internal jugular vessel by sonographic evaluation. 2.) Implantation of power-injectable, Angiodynamics 6 F low profile single-lumen port in left chest with tip in the superior cavoatrial junction. The port may be used immediately. forming roll operator heavy duty: Gutierrez Skinner PA-C. Present during the intraservice time as documented by the interventional radiology nurse. Attending of record: Shadi HUDSON was not present 07/27/2024 Brett Herr MD IMG IR ORDERABLES documented in this encounter Visit Diagnoses Diagnosis 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 of multiple regions documented in this encounter Administered Medications Inactive Administered Medications - up to 3 most recent administrations Medication Order MAR Action Action Date Dose Rate Site fentaNYL (pf) (50 mcg/mL) multi-dose injection 25-50 mcg 25-50 mcg, Intravenous, EVERY 3 MIN PRN, Starting on Fri07/27/24 at 0659, Until Fri07/27/24 at 0935, Pain, per unit protocol, For use in Interventional Radiology (IR) only for procedural sedation with direct provider supervision and verbal order. - Start dose: 50 mcg (reduce dose to 25 mcg if history of sedation sensitivity). - Titration dose: 25-50 mcg IV, (based on patient response) every 3 minutes PRN to maintain procedural pain less than 2 per Pain Scale. Maximum dose: 50 mcg/dose, 250 mcg/hour, Angio/IR (Intra-Procedure), Routine Given 07/27/2024 8:48 AM EDT 25 mcg Given 07/27/2024 8:36 AM EDT 50 mcg Given 07/27/2024 8:32 AM EDT 25 mcg lidocaine (Xylocaine) 1% (10 mg/mL) injection 10 mg 10 mg, Subcutaneous, ONCE, 1 dose, On Fri07/27/24 at 0715, For use in Interventional Radiology (IR) only for procedure with direct provider supervision and verbal order., Angio/IR (Intra-Procedure), Routine Given 07/27/2024 8:38 AM EDT 10 mg lidocaine-EPINEPHrine (2% - 1:100,000) injection vial 20 mL 20 mL, Intradermal, ONCE, 1 dose, On Fri07/27/24 at 0730, Warning Vesicant/Irritant Medication , Routine Given 07/27/2024 8:40 AM EDT 20 mLs midazolam (pf) (Versed) (1 mg/mL) multi-dose injection 0.5-1 mg 0.5-1 mg, Intravenous, EVERY 3 MIN PRN, Starting on Fri07/27/24 at 0659, Until Fri07/27/24 at 0935, Sedation, For use in Interventional Radiology (IR) only for procedural sedation with direct provider supervision and verbal order. - Start dose: 1 mg (Reduce dose to 0.5 mg if history of sedation sensitivity). - Titration dose: 0.5 mg - 1 mg (based on patient response) every 3 minutes PRN to obtain RASS score of -3. Maximum dose: 1 mg/dose, 5 mg/hour., Angio/IR (Intra-Procedure), Routine Given 07/27/2024 8:48 AM EDT 0.5 mg Given 07/27/2024 8:36 AM EDT 1 mg Given 07/27/2024 8:32 AM EDT 0.5 mg sodium chloride 0.9 % (flush) (BD PosiFlush Normal Saline 0.9) flush 5 mL 5 mL, Intravenous, 2 TIMES DAILY, First dose on Fri07/27/24 at 0900, Until Discontinued, Angio/IR (Day of Procedure), Routine Given 07/27/2024 8:39 AM EDT 5 mLs documented in this encounter Care Teams Business Analyst Ecommerce Relationship Specialty Start Date End Date Danie Connor DO [address] [place] [phone] PCP - General Family Medicine 06/04/24 documented as of this encounter
--- OUTSIDE RECORDS SUMMARY | 2024-08-11 20:35 | XMS_ITS | Encounter Summary ---
Author Organization [facility] [place] [address] Care Team Providers Care Heating Equipment Installer Name Role Phone Danie Connor DO Primary Care Provider [phone] Encounter Details Date Type Department Care Team (Late st Contact Info) Description 08/04/2024 Notes Only Hematology/Oncology at [address] [phone] Aurea Galindo MSW OFFICE OF CARE MANAGEMENT Social History Tobacco Use Types Packs/Day Years Used Date Smoking Tobacco: Never Smokeless Tobacco: Never Alcohol Use Standard Drinks/Week Comments No 0 (1 standard drink = 0.6 oz pur e alcohol) DH IPV Inpatient Questions Answer Date Recorded Prevent [...] on file documented as of this encounter Progress Notes * Aruea Galindo MSW - 08/04/2024 9:49 AM EDT Reason for Referral: Brief assessment of social and emotional needs. Met with Brett his s/o Jill and his sister Ana during his first infusion visit today to introduce myself and role of social media marketing manager to assess/address barriers to getting to and through treatments; address support needs and connect with community services and resources as needed. Family/Social Supports: Brett identified his s/o as his primary support. His mother and sister Naina also supports and live together near him. He feels he has a good support system. Living Situation/Daily Activities/Transportation: Brett manages his daily chores and activities. He does not expect any issues with transportation. 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 He has completed [employer] paperworkand opened a short term disability claim if needed. He wants to continue to work if he can. He did not indicate any financial concerns. He has BCBS for insurance. He does not have any insurance concerns at this time. Advance Directives: Brett has not completed his advance directive. Offered information and assistance if interested in completing his document. Utilization of Community Resources: None at this time. Adjustment to Illness/Mental Health Concerns: Brett indicated he is coping as best he can. His sister indicated he has better days than others. His sister and s/o indicated they are staying very positive. Offered support. Identified Needs: Brett did not identify any specific needs at this time. Referrals: None at this time. Social Work Interventions: Brief assessment Supportive Counseling Advance care planning Plan: Informed Brett of [employer] availability and contact information. Will follow to assess/address psychosocial needs. FLORENTIN Shah, BINDER ROLLER, OSW-C Wood Casket Assembler [facility] documented in this encounter Plan of Treatment Upcoming Encounters Date Type Department Care Team (Late st Contact Info) Description 08/25/2024 9:00 AM EDT Office Visit Hematology/Oncology at [address] [phone] Pia Cooper MD [facility] HEMATOLOGY [place] [address] Shayla Vuong APRN [facility] HEMATOLOGY [place] [address] 08/25/2024 9:30 AM EDT Scheduled View Only Hematology/Oncology at [address] [phone] Ekta Womack RN 08/25/2024 9:30 AM EDT Infusion Hematology Oncology at [address] [phone] documented as of this encounter Visit Diagnoses Not on filedocumented in this encounter Care Teams Heating Equipment Installer Relationship Specialty Start Date End Date Danie Connor DO [address] [place] [address] PCP - General Family Medicine 06/04/24 documented as of this encounter
--- OUTSIDE RECORDS SUMMARY | 2024-08-11 20:35 | XMS_ITS | Continuity of Care Document ---
Author Organization [facility] Address [address] [place] [address] Care Team Providers Care Rod Greaser Name Role Phone Smita Lynn Primary Care Physician [facility] Date(s): 05/04/23 - 05/04/23 [facility] [address] [place] [address] Encounter Diagnosis Otalgia of left ear(Discharge Diagnosis) - 05/04/23 Discharge Disposition: Home or Self Care Attending Physician: Kaley Chavez MD Admitting Physician: Kaley Chavez MD Referring Physician: Kaley Chavez MD Allergies, Adverse Reactions, Alerts No Known Medication Allergies Assessment and Plan Future Appointments Immunizations Given and Recorded Vaccine Date Status Refusal Reason SARS-CoV-2 (COVID-19) mRNA-1273 vaccine 04/24/21 R ecorded SARS-CoV-2 (COVID-19) mRNA-1273 vaccine 03/28/21 R ecorded influenza virus vaccine, live 08/31/20 Recorded tetanus/diphth/pertuss (Tdap) adult/adol 03/09/20 Recorded Medications !-Augmentin 875 mg-125 mg oral tablet 1 tab, Oral, every 12 hr, # 14 tab, 0 Refill(s), Pharmacy: [id number], 170.18, cm, 05/04/23 13:50:00 EDT, Height/Length Dosing, 92.99, kg, 05/04/23 13:50:00 EDT, Weight Dosing Start Date: 05/04/23 Stop Date: 05/11/23 Status: Ordered fluticasone 50 mcg/inh nasal spray 1 sprays, Nostril-Both, BID, 0 Refill(s) Start Date: 06/27/22 Status: Ordered lamoTRIgine 200 mg oral tablet 200 mg [...] Confirmed Active New onset headache Confirmed Active Lazy eye Confirmed 03/09/20 Active Non-smoker Confirmed 06/22/21 Active Obstructive sleep apnea Confirmed Active Hand paresthesia Confirmed Active Seizure, temporal lobe Confirmed Active Wax in ear Confirmed Active Procedures Procedure Date Related Diagnosis Body Site Status Temporal lobe surgery 1998 Com pleted Procedure on back 1 Compl eted 13x Vital Signs Most recent to oldest [Reference Range]: 1 Temperature Temporal Artery [36-38 Deg C ] 36.1 Deg C (05/04/23 1:40 PM) Peripheral Pulse Rate [60-100 bpm] 72 bp m (05/04/23 1:40 PM) Respiratory Rate [12-24 br/min] 16 br/mi n (05/04/23 1:40 PM) Blood Pressure [90-140/60-90 mmHg] 132/8 6mmHg (05/04/23 1:40 PM) Weight Dosing 92.99 kg (05/04/23 1:50 PM) Weight Estimated 92.99 kg (05/04/23 1:40 PM) Height/Length Dosing 170.180 cm (05/04/23 1:50 PM) Height/Length Estimated 170.180 cm (05/04/23 1:40 PM) Social History Social History Type Response Smoking Status Smoking tobacco use: Never tobacco user;Never entered on: 06/11/22 Sex Male Hospital Discharge Instructions Patient Education 05/04/2023 13:07:53 Earache, Adult Earache, Adult An earache, or ear pain, can be caused by many things, including: ??? An infection. ??? Ear wax buildup. ??? Ear pressure. ??? Something in the ear that should not be there (foreign body). ??? A sore throat. ??? Tooth problems. ??? Jaw problems. Treatment of the earache will depend on the cause. If the cause is not clear or cannot be determined, you may need to watch your symptoms until your earache goes away or until a cause is found. Follow these instructions at home: Medicines ??? Take or apply bocn-vbr-dtkiyno and prescription medicines only as told by your health care provider. ??? If you were prescribed an antibiotic medicine, use it as told by your health care provider. Do not stop using the antibiotic even if you start to feel better. ??? Do not put anything in your ear other than medicine that is prescribed by your health care provider. Managing pain If directed, apply heat to the affected area as often as told by your health care provider. Use theheat source that your health care provider recommends, such as a moist heat pack or a heating pad. ??? Place a towel between your skin and the heat source. ??? Leave the heat on for 20???30 minutes. ??? Remove the heat if your skin turns bright red. This is especially important if you are unable to feel pain, heat, or cold. You may have a greater risk of getting burned. If directed, put ice on the affected area as often as told by your health care provider. To do this: ??? Put ice in a plastic bag. ??? Place a towel between your skin and the bag. ??? Leave the ice on for 20 minutes, 2???3 times a day. General instructions ??? Pay attention to any changes in your symptoms. ??? Try resting in an upright position instead of lying down. This may help to reduce pressure in your ear and relieve pain. ??? Chew gum if it helps to relieve your ear pain. ??? Treat any allergies as told by your health care provider. ??? Drink enough fluid to keep your urine pale yellow. ??? It is up to you to get the results of any tests that were done. Ask your health care provider, or the department that is doing the tests, when your results will be ready. ??? Keep all follow-up visits as told by your health care provider. This is important. Contact a health care provider if: ??? Your pain does not improve within 2 days. ??? Your earache gets worse. ??? You have new symptoms. ??? You have a fever. Get help right away if you: ??? Have a severe headache. ??? Have a stiff neck. ??? Have trouble swallowing. ??? Have redness or swelling behind your ear. ??? Have fluid or blood coming from your ear. ??? Have hearing loss. ??? Feel dizzy. Summary ??? An earache, or ear pain, can be caused by many things. ??? Treatment of the earache will depend on the cause. Follow recommendations from your health careprovider to treat your ear pain. ??? If the cause is not clear or cannot be determined, you may need to watch your symptoms until your earache goes away or until a cause is found. ??? Keep all follow-up visits as told by your health care provider. This is important. This information is not intended to replace advice given to you by your health care provider. Make sure you discuss any questions you have with your health care provider. Document Revised: 06/24/2020 Document Reviewed: 06/24/2020 [employer] Patient Education ?? 2021 [employer]. Follow Up Care 05/04/2023 13:40:49 With:Follow up with primary care provider Address: When:1 to 2 weeks Physician Emergency department Note * Kaley Chavez MD: PERFORM Event Display: ED Note Physician Authored Date: [id number] MO MCKEON :1975 Age:47 years Sex:Male Visit Date:05/04/2023 Primary Care Physician: Smita Lynn MD Basic Information Time Seen: Kaley Chavez MD / 05/04/2023 13:47 Chief Complaint Pt states he has had a left earache for 2 weeks. ??Was seen at Urgent Care last week and was given Cipro ear Drops. ??States it was no better History Of Present Illness: Patient was seen about 9 days ago by urgent care placed on Cipro HC. ??Patient took some medicationthat his girlfriend had patient for 4 doses has tried Cipro??500 mg and Flagyl??500??mg with no relief.?? Patient denies any dental pain??or swelling.?? No fever no chills no runny nose no cough no neck pain. ??Patient did recently start a??CPAP machine but that has been since??being seen by urgentcare. ??Patient reports that pain is sharp??patient points to just below left ear??pointing towards??TMJ area more than??mastoid area Review of Systems: see hpi for ros Physical Exam Vitals & Measurements T:??36.1?C ??(Temporal Artery)?? HR:??72??(Peripheral)?? RR:??16?? BP:??132/86?? SpO2:??98%?? HT:??170.180??cm?? WT:??92.99??kg??(Estimated)?? Pain Score:??5?? O2 Therapy:??Room air?? General: Alert and oriented, well nourished,?No??acute distress Eye: PER,?Normal??conjunctiva, No scleral icterus HENT: Normocephalic?Normal?? hearing??TMs clear bilaterally except for slight effusion on the left??no??erythema of canals??positive discomfort with??handshake type movement of??left??outer ear??none on the right??no specific pain on palpation of TMJ??no pain of palpation of mastoid??no pain??wit h tongue depressor palpation of teeth??no erythema of gums??patient able to trouble shooter??tongue depressor with his teeth without discomfort Respiratory:??Respiration??no distress??no increased work of breathing Heart:??Capillary refill less than 2 seconds??no??edema Chest: wall excursion wnl no abnormal movements no obvious deformities Musculoskeletal:?Normal?? range of motion and strength,?No??tenderness,?No??swelling Skin: Skin is warm, dry and pink,?No??rashes,?No??lesions Neurologic: Awake, alert and oriented X4 Psychiatric: Cooperative, appropriate mood and affect Medical Decision Making: For MDM please see under assessment and plan Procedure No Qualifying Data Assessment/Plan 1.??Otalgia of left ear??H92.02 Where patient does not have any erythema of his external canal??slight effusion of his left ear??however continued pain with movement of outer ear we will try patient on??Augmentin 875 mg twice a dayfor 7 days to see if this improves??especially given patient being on Cipro and Flagyl??twice a day??for 4 doses??without relief.?? Also discussed with patient considering following up with his dentist??and considering a mouthguard.?? If patient does not improve or worsens he will return to the emergency department or see primary care provider. Ordered: !-Augmentin 875 mg-125 mg oral tablet, 1 tab, Oral, every 12 hr, # 14 tab, 0 Refill(s), Pharmacy: [id number], 170.18, cm, 05/04/23 13:50:00 EDT, Height/Length Dosing, 92.99, kg, 05/04/23 13:50:00 EDT, Weight Dosing Discharge Patient, 05/04/23 14:07:00 EDT, Home Independently, Constant Indicator ?? Patient Education Earache, Adult Follow Up With When Contact Information Follow up with primary care provider Within 1 to 2 weeks Additional Instructions: Medication Reconciliation New Prescription amoxicillin-clavulanate (!-Augmentin 875 mg-125 mg oral tablet)1 tab Oral (given by mouth) every 12hours for 7 Days. Refills: 0. ?? Unchanged fluticasone nasal (fluticasone 50 mcg/inh nasal spray)1 Sprays Nostril-Both 2 times a day. ?? lacosamide (Vimpat 200 mg oral tablet)Oral (given by mouth) 2 times a day. 1/2 tablet. ?? lamoTRIgine (lamoTRIgine 200 mg oral tablet)1 tab Oral (given by mouth) 2 times a day. Problem List/Past Medical History Ongoing Depressive disorder Epilepsy Fatigue Hand paresthesia Lazy eye Memory loss New onset headache [...] Father. Diabetes mellitus: Father. Electronically Signed on 05/04/23 02:13 PM Kaley Chavez MD Emergency department Discharge instructions * Kaley Chavez MD: PERFORM Event Display: ED Discharge Information Authored Date: [id number] MO MCKEON :1975 Age:47 years Sex:Male Visit Date:05/04/2023 Primary Care Physician: Smita Lynn MD Discharge Instructions We would like to thank you for allowing us to assist you with your healthcare needs. The following includes patient education materials and information regarding your injury/illness. Diagnosis from Today's Visit Otalgia of left ear Discharge Vitals Temperature??(Temporal Artery) 97.0 ??F (36.1 ??C) Heart Rate??(Peripheral) 72 Respiratory Rate?? 16 Blood Pressure?? 132/86?? Height?? 67.00 in (170.180 cm) Weight??(Estimated) 205.04 lb (92.99 kg) Allergies No Known Medication Allergies What to Do Next Instructions from Your Care Team Take Augmentin??(amoxicillin/clavulanate) 875/125 1 tablet twice a day for 7 days. You may take up to 800 mg of Motrin, Advil??(ibuprofen)??every 8 hours as needed for pain or discomfort??and or??up to??1000 mg??of Tylenol??(acetaminophen) every 6 hours as needed??for pain or discomfort for [id number] mg in 24 hours or you may permanently hurt your liver. You worsen return to the emergency department or see primary care provider. Consider trying a mouthguard to see if this will help with your??left ear pain. ??Also consider??seeing your dentist if continued pain. You Need to Schedule the Following Appointments Follow Up with??Follow up with primary care provider When:??Within 1 to 2 weeks Upcoming Scheduled Appointments Mayo Mike. 23, 2023 1:00 PM EDT ?? You were treated today on an emergency [...] Emergency Department. Medications What How Much When Why Instructions Next Dose New amoxicillin-clavulanate (!- Augmentin 875 mg-125 mg oral tablet) 1 tab Oral (given by mouth) Every 12 hours Otalgia of left ear Duration: 7 Days Pickup at [facility] Unchanged fluticasone nasal (fluticasone 50 mcg/ inh nasal spray) 1 Sprays Nostril-Both 2 times a day Unchanged lacosamide (Vimpat 200 mg oral tablet) Oral (given by mouth) 2 times a day 1/ 2 tablet ?? Unchanged lamoTRIgine (lamoTRIgine 200 mg oral tablet) 1 tab Oral (given by mouth) 2 times a day Pharmacy Information [facility]: [address] [place] [address] [phone] Education Materials Earache, Adult An earache, or ear pain, can be caused by many things, including: ? An infection. ? Ear wax buildup. ? Ear pressure. ? Something in the ear that should not be there (foreign body). ? A sore throat. ? Tooth problems. ? Jaw problems. Treatment of the earache will depend on the cause. If the cause is not clear or cannot be determined, you may need to watch your symptoms until your earache goes away or until a cause is found. Follow these instructions at home: Medicines ? Take or apply ffts-bfz-mampdou and prescription medicines only as told by your health care provider. ? If you were prescribed an antibiotic medicine, use it as told by your health care provider. Do not stop using the antibiotic even if you start to feel better. ? Do not put anything in your ear other than medicine that is prescribed by your health care provider. Managing pain If directed, apply heat to the affected area as often as told by your health care provider. Use theheat source that your health care provider recommends, such as a moist heat pack or a heating pad. ? Place a towel between your skin and the heat source. ? Leave the heat on for 20???30 minutes. ? Remove the heat if your skin turns bright red. This is especially important if you are unable to feel pain, heat, or cold. You may have a greater risk of getting burned. If directed, put ice on the affected area as often as told by your health care provider. To do this: ? Put ice in a plastic bag. ? Place a towel between your skin and the bag. ? Leave the ice on for 20 minutes, 2???3 times a day. General instructions ? Pay attention to any changes in your symptoms. ? Try resting in an upright position instead of lying down. This may help to reduce pressure in your ear and relieve pain. ? Chew gum if it helps to relieve your ear pain. ? Treat any allergies as told by your health care provider. ? Drink enough fluid to keep your urine pale yellow. ? It is up to you to get the results of any tests that were done. Ask your health care provider, or the department that is doing the tests, when your results will be ready. ? Keep all follow-up visits as told by your health care provider. This is important. Contact a health care provider if: ? Your pain does not improve within 2 days. ? Your earache gets worse. ? You have new symptoms. ? You have a fever. Get help right away if you: ? Have a severe headache. ? Have a stiff neck. ? Have trouble swallowing. ? Have redness or swelling behind your ear. ? Have fluid or blood coming from your ear. ? Have hearing loss. ? Feel dizzy. Summary ? An earache, or ear pain, can be caused by many things. ? Treatment of the earache will depend on the cause. Follow recommendations from your health care provider to treat your ear pain. ? If the cause is not clear or cannot be determined, you may need to watch your symptoms until your earache goes away or until a cause is found. ? Keep all follow-up visits as told by your health care provider. This is important. This information is not intended to replace advice given to you by your health care provider. Make sure you discuss any questions you have with your health care provider. Document Revised: 06/24/2020 Document Reviewed: 06/24/2020 [employer] Patient Education ?? 2021 [employer] Inc. Patient/Global Human Resources Director Signature Patient Name:MO MCKEON Saroj I have received this information and my questions have been answered. Patient/Global Human Resources Director Name: Patient/Global Human Resources Director Signature: Relationship to Patient: Witness Name/Signature: Date: Electronically Signed on: 05/04/2023 14:08 EDTSigned by:[facility] Emergency department Note * Zainab Guerra: PERFORM Event Display: ED Notes Authored Date: [id number] Patient Care team information Care Team Personnel Name: Smita Lynn MD Position: No Access Member Role: Informed Provider Address: Address: [place] [id number] Name: Luigi Shanks RN Position: Nurse Member Role: ED Nurse Name: Kaley Chavez MD Position: Physician Member Role: ED Physician Address: Address: [address] [place] [address] Care Team Related Persons Name: LOBITO ARREDONDO
--- OUTSIDE RECORDS SUMMARY | 2024-08-11 20:35 | XMS_ITS | Encounter Summary ---
Author [place] [address] Care Team Providers Care Final Expense Agent Name Role Phone Danie Connor Primary Care Provider [phone] Encounter Details Date Type Department Care Team (Late Contact Info) Description 08/04/2024 Orders Only Hematology/Oncology at [address] [phone] Shayla Vuong APRN [facility] [place] [address] 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 of multiple regions Social History Tobacco Use Types Packs/Day Years [...] 9:00 AM EDT Office Visit Hematology/Oncology at [address] [phone] Pia Cooper MD [facility] [place] [address] Shayla Vuong APRN [facility] [place] [address] 08/25/2024 9:30 AM EDT Scheduled View Only Hematology/Oncology at [address] [phone] Ekta Womack RN 08/25/2024 9:30 AM EDT Infusion Hematology Oncology at [address] [phone] Scheduled Orders Name Type Priority Associated Diagnoses Orde r Schedule Miscellaneous Lab request Lab Routine 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 of multiple regions Every 3 weeks for 17 Occurrences starting 08/04/2024 until 08/04/2025 documented as of this encounter Visit Diagnoses Diagnosis 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 of multiple regions documented in this encounter Care Teams Final Expense Agent Relationship Specialty Start Date End Date Danie Connor DO [address] [place] [phone] PCP - General Family Medicine 06/04/24 documented as of this encounter
--- OUTSIDE RECORDS SUMMARY | 2024-08-11 20:35 | XMS_ITS | Encounter Summary ---
Author Organization [facility] Address [address] [place] [address] Care Team Providers Care Parts Advisor Name Role Phone Unknown, Provider Primary Care Provider [phone] Encounter Details Date Type Department Care Team (Late st Contact Info) Description 05/19/2024 Lab Requisition [facility] Pathology & Laboratory Medicine - [facility] [address] [place] [address] [id number] Encounter for other general examination Social History Tobacco Use Types Packs/Day Years Used Date Smoking Tobacco: Never Assessed Sex and Gender Information Value Date Recorded Sex Assigned at Not on file Gender Identity Not on file Sexual Orientation Not on file documented as of this encounter Plan of Treatment Not on file documented as of this encounter Procedures Procedure Name Priority Date/Time Associated Diagnosis Comments SURGICAL PATHOLOGY Today 05/19/2024 13 :45 EDT Encounter for other general examination documented in this encounter Results * SURGICAL PATHOLOGY (05/19/2024 13:45 EDT) Note to Patient The following pathology results have been interpreted by your pathologist and may be available to you before your health provider has had the opportunity to review them. Please allow time for your provider to receive these results and explore management options, if applicable. 05/27/2024 11:41 EDT [facility] Final Diagnosis A. MASS, ADJACENT TO RIGHT SUBMANDIBULAR GLAND, CORE BIOPSY: - Large B-cell lymphoma. See comment. 05/27/2024 11:41 [facility] Diagnosis Comment Histologic [...] highlights background T-cells. Concurrent flow cytometric analysis ([id number]) shows a CD10 positive, kappa-restricted B-cell population that by light scatter criteria, are large in size. FISH for MYC rearrangements were performed (send out to [place]) and showed no MYC rearrangement and no [...] of tissue for flow cytometry, is recommended. Manager Corporate Responsibility slides of this case were reviewed at the intradepartmental consultation conference. 05/27/2024 11:41 [facility] Attestation By the signature below, the attending physician certifies that they have 1) personally conducted a gross and/or microscopic examination of the described specimen(s), and/or personally interpreted the results of laboratory testing of the described specimen(s), and 2) personally rendered or confirmed the above diagnosis. 05/27/2024 11:41 [facility] at 1141 Preliminary result electronically signed by Millicent Chris MD on 05/25/2024 at 1533 Ancillary Studies Immunoperoxidase stains were performed on this case to further characterize the lesion. ANTIBODY(CLONE) (BLOCK):RESULT CD3 (SP7, Thermo Scientific) (A1): SEE ABOVE DISCUSSION CD20 (L26, Saxis) (A1): BCL-6 (G/191E/A8, Saxis) (A1): BCL-2 Oncoprotein (124, Saxis) (A1): Myc (Y69, Abcam) (A1): CD30 (Dilip-H2, Saxis) (A1): Ki67 (MIB-1) (K2, Leica) (A1): CD21 (2G9, Leica) (A1): CD23 (SP23, Saxis) (A1): DASHA PURA ([id number], Leica) (A1): NOTE: One or more of [...] high complexity clinical laboratory testing. 05/27/2024 11:41 [facility] Clinical History 3 cm mass immediately adjacent to but separate from R submandibular gland 05/27/2024 11:41 [facility] Gross Description A. Received in [...] A2. Yuli Gallardo 05/20/2024 9:35 05/27/2024 11:41 [facility] Performing Lab [facility] 05/27/2024 11:41 [facility] Scanned Images 05/27/2024 11:41 EDT [facility] Tissue SOFT TISSUE / Unknown 05/19/2024 13:45 EDT 05/20/2024 7:17 EDT Moisés Chery PATHOLOGY ORDERABLES [facility] [address] [place] [address] documented in this encounter Visit Diagnoses Diagnosis Encounter for other general examination documented in this encounter Care Teams Parts Advisor Relationship Specialty Start Date End Date Unknown, Provider, PCP - General 09/11/15 documented as of this encounter
--- OUTSIDE RECORDS SUMMARY | 2024-08-11 20:35 | XMS_ITS | Encounter Summary ---
Author Organization [facility] Address [address] [place] [address] Care Team Providers Care Blade Filer Name Role Phone Unknown, Provider Primary Care Provider [phone] Encounter Details Date Type Department Care Team (Late st Contact Info) Description 05/19/2024 Lab Requisition [facility] Pathology & Laboratory Medicine - [facility] [address] [place] [address] Dwain Leroy MD [address] [place] [phone] Encounter for other general examination Social History [...] Procedure Name Priority Date/Time Associated Diagnosis Comments NON FASHION DESIGN PROFESSOR/FNA CYTOLOGY Today 05/19/2024 13:45 EDT Encounter for other general examination documented in this encounter Results * NON FASHION DESIGN PROFESSOR/FNA CYTOLOGY (05/19/2024 13:45 EDT) Note to Patient The following pathology results have been interpreted by your pathologist and may be available to you before your health provider has had the opportunity to review them. Please allow time for your provider to receive these results and explore management options, if applicable. 05/24/2024 16:45 EDT [facility] Final Diagnosis A. NECK MASS (3 CM), RIGHT, IMMEDIATELY ADJACENT TO SUBMANDIBULAR GLAND, ULTRASOUND-GUIDED FINE NEEDLE ASPIRATION: - Atypical lymphocytes present. See comment. 05/24/2024 16:45 [facility] Diagnosis Comment Please refer to the concurrent flow cytometry and surgical pathology specimens for further characterization ([id number], [id number]). The technical component of the specimen processing was performed at the [facility] Pathology Department, [address] [place] [address] (CLIA [id number]). The professional component of the specimen evaluation (slide review and issuing of the final diagnosis) was performed at [facility], [address] [place] [address] (CLIA License Number [id number]). 05/24/2024 16:45 [facility] Attestation By the signature below, the attending physician certifies that they have personally conducted a gross and/or microscopic examination of the described specimens and rendered or confirmed the above diagnosis. 05/24/2024 16:45 [facility] at 1645 Rapid Diagnosis A.NECK MASS,3 CM,RIGHT,IMMEDIATE LY ADJACENT TO SUBMANDIBULAR GLAND,ULTRASOUND GUIDED FINE NEEDLE ASPIRATION: Evaluation Episode 1: Pass 1: Mostly dispersed population of small blue cells,probably background lymphoglandular bodies. Recommend cores for surgical pathology and flow cytometry. The above rapid on site evaluation was performed by pathologist Dr. Francis Rhodes at [facility], [address] [place], [place] [id number]. 05/19/2024; 1345 05/24/2024 16:45 [facility] Clinical History 3cm mass immediately adjacent to but separate from left submandibular gland 05/24/2024 16:45 [facility] Gross Description A. 1 fixed prepared slides, 2 air dried prepared slides, and 1 tube of CytoLyt were received and processed by selective cellular enhancement technique. 05/24/2024 16:45 [facility] Performing Lab [id number] 16:45 [facility] Scanned Images 05/24/2024 16:45 [facility] ZZUNK SOFT TISSUE / Unknown 05/19/2024 13:45 EDT 05/20/2024 6:19 EDT Dwain Leroy MD PATHOLOGY ORDERABLES [facility] [address] [place] [address] documented in this encounter Visit Diagnoses Diagnosis Encounter for other general examination documented in this encounter Care Teams Blade Filer Relationship Specialty Start Date End Date Unknown, Provider, PCP - General 09/11/15 documented as of this encounter
--- OUTSIDE RECORDS SUMMARY | 2024-08-11 20:35 | XMS_ITS | Continuity of Care Document ---
Author Organization [facility] Address [address] [place] [address] Care Team Providers Care It Consultant Name Role Phone Smita Allison Primary Care Physician [facility] Date[facility]s): 01/08/24 - 01/08/[address] [address] Encounter Diagnosis Sty(Discharge Diagnosis) - 01/08/24 Discharge Disposition: Home or Self Care Attending Physician: Sherwin Wilder MD Admitting Physician: Sherwin Wilder MD Allergies, Adverse Reactions, Alerts No Known Medication Allergies Assessment and Plan Extracted from: Title:ED Provider Note Author:Sherwin Wilder MD Date:01/08/24 Assessment/Plan 1.??Sty??H00.019 Orders: Discharge Patient, 01/08/24 6:47:00 EST, Home Independently, Constant Indicator Patient Education Stye Follow Up With When Contact Information Smita Allison MD Within [address] [address]- ?? Additional Instructions: Future Appointments Functional Status 01/08/24 Family Member Travel History No recent t ravel Recent Travel History No recent travel Immunizations Given and Recorded Vaccine Date Status Refusal Reason SARS-CoV-2 (COVID-19) mRNA-1273 vaccine 04/24/21 R ecorded SARS-CoV-2 (COVID-19) mRNA-1273 vaccine 03/28/21 R ecorded influenza virus vaccine, live 08/31/20 Recorded tetanus/diphth/pertuss (Tdap) adult/adol 03/09/20 Recorded Medications !-Augmentin 875 mg-125 mg oral tablet 1 tab, Oral, every 12 hr, # 14 tab, 0 Refill(s), Pharmacy: [id number], 170.18, cm, 05/04/23 13:50:00 EDT, [...] Temperature Temporal Artery [36-38 Deg C ] 36 Deg C (01/08/24 6:23 AM) Heart Rate Monitored [60-100 bpm] 73 bpm (01/08/24 6:23 AM) Respiratory Rate [12-24 br/min] 16 br/mi n (01/08/24 6:23 AM) Blood Pressure [90-140/60-90 mmHg] 123/7 0mmHg (01/08/24 6:23 AM) Mean Arterial Pressure, Cuff [70-110 mmH g] 88 mmHg (01/08/24 6:23 AM) Weight 95 kg (01/08/24 6:23 AM) Weight Dosing 95.000 kg (01/08/24 6:23 AM) Height 170 cm (01/08/24 6:23 AM) Body Mass Index 32.87 kg/m2 (01/08/24 6:23 AM) Social History Social History Type Response Smoking Status Smoking tobacco use: Never tobacco user;Never entered on: 01/08/24 Sex Male Hospital Discharge Instructions Patient Education 01/08/2024 05:48:01 Stye Stye A stye, also known as a hordeolum, is a bump that forms on an eyelid. It may look like a pimple next to the eyelash. A stye can form inside the eyelid (internal stye) or outside the eyelid (external stye). A stye can cause redness, swelling, and pain on the eyelid. Styes are very common. Anyone can get them at any age. They usually occur in just one eye at a time, but you may have more than one in either eye. What are the causes? A stye is caused by an infection. The infection is almost always caused by bacteria called Staphylococcus aureus. This is a common type of bacteria that lives on the skin. An internal stye may result from an infected oil-producing gland inside the eyelid. An external stye may be caused by an infection at the base of the eyelash (hair follicle). What increases the risk? You are more likely to develop a stye if: ??? You have had a stye before. ??? You have any of these conditions: ??? Red, itchy, inflamed eyelids (blepharitis). ??? A skin condition such as seborrheic dermatitis or rosacea. ??? High fat levels in your blood (lipids). ??? Dry eyes. What are the signs or symptoms? The most common symptom of a stye is eyelid pain. Internal styes are more painful than external styes. Other symptoms may include: ??? Painful swelling of your eyelid. ??? A scratchy feeling in your eye. ??? Tearing and redness of your eye. ??? A pimple-like bump on the edge of the eyelid. ??? Pus draining from the stye. How is this diagnosed? Your health care provider may be able to diagnose a stye just by examining your eye. The health care provider may also check to make sure: ??? You do not have a fever or other signs of a more serious infection. ??? The infection has not spread to other parts of your eye or areas around your eye. How is this treated? Most styes will clear up in a few days without treatment or with warm compresses applied to the area. You may need to use antibiotic drops or ointment to treat an infection. Sometimes, steroid drops or ointment are used in addition to antibiotics. In some cases, your health care provider may give you a small steroid injection in the eyelid. If your stye does not heal with routine treatment, your health care provider may drain pus from thestye using a thin blade or needle. This may be done if the stye is large, causing a lot of pain, oraffecting your vision. Follow these instructions at home: ??? Take meep-rsa-gkganyh and prescription medicines only as told by your health care provider. This includes eye drops or ointments. ??? If you were prescribed an antibiotic medicine, steroid medicine, or both, apply or use them as told by your health care provider. Do not stop using the medicine even if your condition improves. ??? Apply a warm, wet cloth (warm compress) to your eye for 5???10 minutes, 4 to 6 times a day. ??? Clean the affected eyelid as directed by your health care provider. ??? Do not wear contact lenses or eye makeup until your stye has healed and your health care provider says that it is safe. ??? Do not try to pop or drain the stye. ??? Do not rub your eye. Contact a health care provider if: ??? You have chills or a fever. ??? Your stye does not go away after several days. ??? Your stye affects your vision. ??? Your eyeball becomes swollen, red, or painful. Get help right away if: ??? You have pain when moving your eye around. Summary ??? A stye is a bump that forms on an eyelid. It may look like a pimple next to the eyelash. ??? A stye can form inside the eyelid (internal stye) or outside the eyelid (external stye). A styecan cause redness, swelling, and pain on the eyelid. ??? Your health care provider may be able to diagnose a stye just by examining your eye. ??? Apply a warm, wet cloth (warm compress) to your eye for 5???10 minutes, 4 to 6 times a day. This information is not intended to replace advice given to you by your health care provider. Make sure you discuss any questions you have with your health care provider. Document Revised: 01/23/2022 Document Reviewed: 01/23/2022 [employer] Patient Education ?? 2022 [employer]. Follow Up Care 01/08/2024 06:23:16 With:Smita Allison MD Address: [address] [address]- When:1 month Physician Emergency department Note * Sherwin Wilder MD: PERFORM Event Display: ED Note Physician Authored Date: [id number] MO MCKEON :1975 Age:48 years Sex:Male Visit Date:01/08/2024 Primary Care Physician: Smita Allison MD Basic Information Time Seen: Sherwin Wilder MD / 01/08/2024 06:28 Chief Complaint Right eye irritation since morning of 01/06 when he awoke feeling like something was in right eye. ??States has been flushing eye at home without resolution. ??denies vision changes. ??denies discharge History Of Present Illness: Patient complains of pain??in his right I??lateral edge.?? He felt there might be something in there.?? No change in vision. Review of Systems: No fever. ??No recent??exposure to??welding or??grinding??or working under cars etc. Physical Exam Vitals & Measurements T:??36?C ??(Temporal Artery)?? HR:??73??(Monitored)?? RR:??16?? BP:??123/70?? SpO2:??98%?? HT:??170??cm?? WT:??95??kg?? BMI:??32.87?? Pain Score:??7?? Alert cooperative in no distress.?? His left eye??has??a lateral??abnormal gaze. ??There is no conjunctivitis.?? No foreign body??seen on the cornea. ??After tetracaine and fluorescein the eye was examined under??magnification with bluelight and no??corneal injury noted.?? Eyelid was flipped and there was a??eyelash??under the??right??upper lid lateral??edge. ??There also is a tiny stye along thelateral??margin of the lid??upper lid. Medical Decision Making: I did several sweeps to remove the eyelash. ??I did not see the eyelash on the Q-tip but??on reexamination??also did not see??the eyelash under the lid.?? His pain may also be coming from the stye onthe lateral aspect of the upper lid. ??I applied some erythromycin ointment and he will continue that for the next few days??getting rechecked if not improving. Procedure No Qualifying Data Assessment/Plan 1.??Sty??H00.019 Orders: Discharge Patient, 01/08/24 6:47:00 EST, Home Independently, Constant Indicator Patient Education [facility] Follow Up With When Contact Information Smita Allison MD Within [address] [address]- Additional Instructions: Medication Reconciliation Unchanged amoxicillin-clavulanate (!-Augmentin 875 mg-125 mg oral tablet)1 tab Oral (given by mouth) every 12hours for 7 Days. Refills: 0. ?? fluticasone nasal (fluticasone 50 mcg/inh nasal spray)1 [...] History ???Temporal lobe surgery (1998)???Procedure on back Medication Administration Given erythromycin 0.5% ophthalmic ointment, 1 marc, Eye-Right fluorescein 1 mg ophthalmic test, 1 EA, Eye-Both tetracaine 0.5% ophthalmic solution, 2 drops, Eye-Right Allergies No Known Medication Allergies Social History Electronic Cigarette/Vaping Electronic Cigarette Use: Never. Tobacco Never tobacco user Tobacco Use:. Never Smokeless Tobacco use:. Family History Alzheimer's disease: Mother. Dementia: Father. Diabetes mellitus: Father. Electronically Signed on 01/08/24 06:51 AM Sherwin Wilder MD Emergency department Discharge instructions * Sherwin Wilder MD: PERFORM Event Display: ED Discharge Information Authored Date: [id number] MO MCKEON :1975 Age:48 years Sex:Male Visit Date:01/08/2024 Primary Care Physician: Smita Allison MD Discharge Instructions We would like to thank you for allowing us to assist you with your healthcare needs. The following includes patient education materials and information regarding your injury/illness. Apply a tiny amount of the eye ointment??inside the lower lid every 3-4 hours for the next 2 days to soothe. ??You may use warm compresses on the eye if you wish.?? The tiny pimple along the edge of your eyelid should resolve in the next few days. Diagnosis from Today's Visit Sty Discharge Vitals Temperature??(Temporal Artery) 96.8 ??F (36 ??C) Heart Rate??(Monitored) 73 Respiratory Rate?? 16 Blood Pressure?? 123/70?? Height?? 66.93 in (170 cm) Weight?? 209.48 lb (95 kg) BMI?? 32.87 Allergies No Known Medication Allergies What to Do Next You Need to Schedule the Following Appointments Follow Up with??Smita Allison MD When:??Within 1 month Where: [address] [address]- Upcoming Scheduled Appointments Friday 8:00 AM EST ?? With: Baljinder Rodrigues METHODS EXAMINER Where: [facility] [place] [address] [place] [id number] Status: Confirmed You were treated today on an emergency [...] How Much When Why Instructions Next Dose Unchanged amoxicillin-clavulanate (!-Augmentin 875 mg-125 mg oral tablet) 1 tab Oral (given by mouth) Every 12 hours Otalgia of left ear Duration: 7 Days Unchanged fluticasone nasal (fluticasone 50 mcg/ inh nasal spray) 1 Sprays Nostril-Both 2 times a day Unchanged lacosamide (Vimpat 200 mg oral tablet) Oral (given by mouth) 2 times a day 1/ 2 tablet ?? Unchanged lamoTRIgine (lamoTRIgine 200 mg oral tablet) 1 tab Oral (given by mouth) 2 times a day Education Materials Stye A stye, also known as a hordeolum, is a bump that forms on an eyelid. It may look like a pimple next to the eyelash. A stye can form inside the eyelid (internal stye) or outside the eyelid (external stye). A stye can cause redness, swelling, and pain on the eyelid. Styes are very common. Anyone can get them at any age. They usually occur in just one eye at a time, but you may have more than one in either eye. What are the causes? A stye is caused by an infection. The infection is almost always caused by bacteria called Staphylococcus aureus. This is a common type of bacteria that lives on the skin. An internal stye may result from an infected oil-producing gland inside the eyelid. An external stye may be caused by an infection at the base of the eyelash (hair follicle). What increases the risk? You are more likely to develop a stye if: ? You have had a stye before. ? You have any of these conditions: ? Red, itchy, inflamed eyelids (blepharitis). ? A skin condition such as seborrheic dermatitis or rosacea. ? High fat levels in your blood (lipids). ? Dry eyes. What are the signs or symptoms? The most common symptom of a stye is eyelid pain. Internal styes are more painful than external styes. Other symptoms may include: ? Painful swelling of your eyelid. ? A scratchy feeling in your eye. ? Tearing and redness of your eye. ? A pimple-like bump on the edge of the eyelid. ? Pus draining from the stye. How is this diagnosed? Your health care provider may be able to diagnose a stye just by examining your eye. The health care provider may also check to make sure: ? You do not have a fever or other signs of a more serious infection. ? The infection has not spread to other parts of your eye or areas around your eye. How is this treated? Most styes will clear up in a few days without treatment or with warm compresses applied to the area. You may need to use antibiotic drops or ointment to treat an infection. Sometimes, steroid drops or ointment are used in addition to antibiotics. In some cases, your health care provider may give you a small steroid injection in the eyelid. If your stye does not heal with routine treatment, your health care provider may drain pus from thestye using a thin blade or needle. This may be done if the stye is large, causing a lot of pain, oraffecting your vision. Follow these instructions at home: ? Take ldqb-dag-kyxmwxg and prescription medicines only as told by your health care provider. This includes eye drops or ointments. ? If you were prescribed an antibiotic medicine, steroid medicine, or both, apply or use them as toldby your health care provider. Do not stop using the medicine even if your condition improves. ? Apply a warm, wet cloth (warm compress) to your eye for 5???10 minutes, 4 to 6 times a day. ? Clean the affected eyelid as directed by your health care provider. ? Do not wear contact lenses or eye makeup until your stye has healed and your health care provider says that it is safe. ? Do not try to pop or drain the stye. ? Do not rub your eye. Contact a health care provider if: ? You have chills or a fever. ? Your stye does not go away after several days. ? Your stye affects your vision. ? Your eyeball becomes swollen, red, or painful. Get help right away if: ? You have pain when moving your eye around. Summary ? A stye is a bump that forms on an eyelid. It may look like a pimple next to the eyelash. ? A stye can form inside the eyelid (internal stye) or outside the eyelid (external stye). A stye cancause redness, swelling, and pain on the eyelid. ? Your health care provider may be able to diagnose a stye just by examining your eye. ? Apply a warm, wet cloth (warm compress) to your eye for 5???10 minutes, 4 to 6 times a day. This information is not intended to replace advice given to you by your health care provider. Make sure you discuss any questions you have with your health care provider. Document Revised: 01/23/2022 Document Reviewed: 01/23/2022 [employer] Patient Education ?? 2022 [employer] Tests Performed Medications and Immunizations Administered Given erythromycin 0.5% ophthalmic ointment, 1 marc, Eye-Right fluorescein 1 mg ophthalmic test, 1 EA, Eye-Both tetracaine 0.5% ophthalmic solution, 2 drops, Eye-Right Patient/Fuel Retrofitting Technician Signature Patient Name:MO MCKEON I have received this information and my questions have been answered. Patient/Fuel Retrofitting Technician Name: Patient/Fuel Retrofitting Technician Signature: Relationship to Patient: Witness Name/Signature: Date: Electronically Signed on: 01/08/2024 06:49 ESTSigned by:PMN Patient Care team information Care Team Personnel Name: Smita Allison MD Position: No Access Member Role: Informed Provider Address: Address: [address] [address] Care Team Related Persons Name: LOBITO ARREDONDO Address: [address], [id number]
--- OUTSIDE RECORDS SUMMARY | 2024-08-11 20:35 | XMS_ITS | Encounter Summary ---
Author Organization [facility] [place] [address] Care Team Providers Care Custom Tailor Apprentice Name Role Phone ConnorDanie willis Primary Care Provider [phone] Encounter Details Date Type Department Care Team (Latest Contact Info) Description 07/31/2024 Travel Social History Tobacco Use Types Packs/Day [...] 9:00 AM EDT Office Visit Hematology/Oncology at [address] [phone] Pia Cooper MD [facility] [address] HEMAT[place] [address] Shayla Vuong APRN [facility] [place] [address] 08/25/2024 9:30 AM EDT Scheduled View Only Hematology/Oncology at [address] [phone] Ekta Womack RN 08/25/2024 9:30 AM EDT Infusion Hematology Oncology at [address] [phone] documented as of this encounter Visit Diagnoses Not on filedocumented in this encounter Care Teams Custom Tailor Apprentice Relationship Specialty Start Date End Date Danie Connor DO [address] [place] [address] PCP - General Family Medicine 06/04/24 documented as of this encounter
--- OUTSIDE RECORDS SUMMARY | 2024-08-11 20:35 | XMS_ITS | Encounter Summary ---
Author Organization [facility] Address [address] [place] [address] Care Team Providers Care Circulation Director Name Role Phone Unknown, Provider Primary Care Provider Encounter Details Date Type Department Care Team (Late st Contact Info) Description 05/19/2024 Lab Requisition [facility] Pathology & Laboratory Medicine - [facility] [address] [place] [address] Moisés Chery MD [address] [place] [address] Encounter for other general examination Social History [...] 17:26 EDT Encounter for other general examination documented in this encounter Results * LEUKEMIA/LYMPHOMA PANEL BY FLOW CYTOMETRY (05/19/2024 17:26 EDT) Final Immunophenotypic Interpretation Right cervical mass, flow cytometric analysis: - An aberrant WO91-rzbbsizu B-cell population is identified. 14:30 EDT [facility] Attestation By the signature below, the attending physician certifies that they have 1) personally conducted a gross and/or microscopic examination of the described specimen(s), and/or personally interpreted the results of laboratory testing of the described specimen(s), and 2) personally rendered or confirmed the above diagnosis. 4 14:30 [facility] Amendment electronically signed by Catracho Hernandez MD on 05/20/2024 at 1430 at 1422 Clinical History 48 yo male with neck mass 4 14:30 [facility] Description Gating is performed using [...] 94% of total analyzed cells. An aberrant Zinc light chain-restricted B-cell population is identified (33% of total lymphocytes), expressing CD10, CD19 and CD20 with a high side scatter; while negative for CD5 and Lambda light chain expression. 4 14:30 [facility] Flow Markers CD10, CD19, CD20, CD3, CD4, CD45, CD5, CD8, Zinc, and Lambda. 4 14:30 [facility] FDA Disclaimer This test was developed and its performance characteristics determined by the Department of Pathology and Laboratory Medicine, [facility], [place], [place] It has not been cleared or [...] to perform high complexity clinical laboratory testing. 4 14:30 [facility] Scanned Images 4 14:30 [facility] ZZUNK SOFT TISSUE MASS / Unknown 05/19/2024 17:26 EDT 05/20/2024 7:24 EDT Moisés Chery MD PATHOLOGY ORDERABLES [facility] [address] [phone] documented in this encounter Visit Diagnoses Diagnosis Encounter for other general examination documented in this encounter Care Teams Circulation Director Relationship Specialty Start Date End Date Unknown, Provider, PCP - General 09/11/15 documented as of this encounter
--- OUTSIDE RECORDS SUMMARY | 2024-08-11 20:35 | XMS_ITS | Encounter Summary ---
Author Organization [facility] Address [facility] [place] [address] Care Team Providers Care Spun Paste Machine Operator Name Role Phone Geeta Danie Juli ORTEGA Primary Care Provider [phone] Reason for Visit * Reason Comments Chemotherapy [id number]/Polatuz umab/Doxorubicin/Cytoxan * Treatment/Therapy Plan Authorization (Routine) - Authorized Specialty Diagnoses / Procedures Referred By Contac t Referred To Contact Diagnoses 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 of multiple regions Procedures TC PALONOSETRON HCL, 25MCG, INJECTION (ALOXI) TC APREPITANT, 1 MG, INJECTION TC PEGFILGRASTIM, EXCLUDES BIOSIMILAR, 0.5 MG, INJ TC RITUXIMAB-PVVR, BIOSIMILAR, (RUXIENCE), 10 MG, INJ TC DOXORUBICIN HCL, 10MG, INJECTION (ADRIAMYCIN) TC CYCLOPHOSPHAMIDE, 100MG (CYTOXAN) [id number] (POLATUZUMAB VEDOTIN-PIIQ) Brett Herr MD [facility] [address] [place] [address] Stj Hem Onc Infusion [address] [place] [phone] Referral ID Status Reason Start Date Expiration Date V isits Requested Visits Authorized [id number] Authorized 07/23/2024 07/23/2025 100 Encounter Details Date Type Department Care Team (Late st Contact Info) Description 08/04/2024 8:30 AM EDT Infusion Hematology Oncology at [address] [phone] 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 [...] as of this encounter Progress Notes * Marina Thao RN - 08/04/2024 8:30 AM EDT INFUSION THERAPY ADMINISTRATION NOTES DIAGNOSIS: DLBCL CYCLE #: C1D1 REASON FOR VISIT: Rituxan/Polatuzumab/Doxorubicin/Cytoxan SUBJECTIVE Brett offers no complaints. He met with Shayla Vuong APRN prior to infusion today. He was accompanied by his sister, Ana, and his partner, Jill. He was anxious to start treatment today but felt better after receiving ativan per Key order. OBJECTIVE LAB DATA: Drawn today at [facility] for treatment. IV ACCESS: Port already accessed by OSH for lab draw; dressing CDI, flushes easily with excellent blood return noted. Brett was stating that the site was itchy under the dressing and site was slightlyred. Dressing was changed to a sensitive dressing (IV 3000) and he had no further complaints. Pre administration: Chemotherapy orders independently verified for drug name, route, and dosage per patient's height, weight and BSA by Marina Thao, RN & [facility]. REACTIONS (DESCRIPTION, TIME, INTERVENTION AND EFFECTIVENESS) After starting Rituxan at 1013, Brett made it to step 3 at the 1st time infusion rate. He received ~75ml at a rate of 75ml/hr. At this point (1140), Brett went to the bathroom and upon his return, he stated he was feeling nauseous and chills. He was having rigors and also complained of some slight chest pressure. Rituxan was immediately stopped and VS obtained. 1142 VSS stable: T-36.1; O2-100%; P-91; B/P-126/59 1147 Brett states that symptoms had completely resolved Shayla Vuong APRN assessed the situation and felt that since the symptoms had resolved without further intervention, he did not to receive any other medications for the reaction and we would just wait 30 minutes to observe. After 30 min, Rituxan was restarted at step 3 at 1215. He had no further issues for the remained of his treatment. ASSESSMENT Brett was awake, alert and tolerated treatment well after initial Rituxan reaction. Due to timing ofadministration, the decision was made by CLEMENTE Mackey to complete the Rituxan/Adriamycin/Cytoxan today then have Brett return tomorrow to receive Polatuzumab and fulphilia. Port flushed with 20cc NS then de-accessed after completion of treatment per Brett's request. Pt. chemo teaching instructions included: During clinic hours (8am-5pm Friday-Friday): pt. can call [phone] with questions or concerns. After clinic hours (5pm-8am Friday-Friday and weekends) pt can call [phone] and ask for the director of front office/oncologist software developer consultant. Brett Campos verbalized understanding of potential chemotherapy side effects and home care including but not limited to- handwashing to prevent infection, signs and symptoms of low blood counts (fever, fatigue, bleeding), to call with a fever of 100.4 or greater, any significant constipation/diarrhea, importance of nutrition and fluid intake (drinking at least 32-64 ounces of non-caffeinated beverages/day), mouth care. Brett Campos verbalized understanding of how to take prescription medications given for home use after chemotherapy. PLAN Return to clinic tomorrow for C1D2. documented in this encounter Plan of Treatment Upcoming Encounters Date Type Department Care Team (Late st Contact Info) Description 08/25/2024 9:00 AM EDT Office Visit Hematology/Oncology at [address] [phone] Pia Cooper MD [facility] [address] [place] [address] Shayla Vuong APRN [facility] [place] [address] 08/25/2024 9:30 AM EDT Scheduled View Only Hematology/Oncology at [address] [phone] Ekta Womack RN 08/25/2024 9:30 AM EDT Infusion Hematology Oncology at [address] [phone] documented as of this encounter Visit Diagnoses Diagnosis 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 of multiple regions documented in this encounter Administered Medications Inactive Administered Medications - up to 3 most recent administrations Medication Order MAR Action Action Date Dose Rate Site acetaminophen (Tylenol) tablet 650 mg 650 mg, Oral, ONCE, 1 dose, On Fri08/04/24 at 0830, Administer prior to riTUXimab., Routine Given 08/04/2024 9:06 AM EDT 650 mg aprepitant (Cinvanti) (7.2 mg/mL) injection emulsion 130 mg 130 mg, Intravenous, Administer over 2 Minutes, ONCE, 1 dose, On Fri08/04/24 at 0830, Alternative administration of IV push over 2 minutes is a recommendation from the auxiliary power equipment operator. Administer prior to chemotherapy., Routine Given 08/04/2024 9:08 AM EDT 130 mg cycloPHOSphamide (Cytoxan) 1,500 mg in sodium chloride 0.9% 325 mL infusion 1,500 mg (rounded from 1,545 mg = 750 mg/m2/dose ? 2.06 m2 Treatment Plan BSA from Recorded weight), Intravenous, ONCE, 1 dose, On Fri08/04/24 at 0930, Administer over 30 Minutes, Warning Vesicant/Irritant Medication New Bag 08/04/2024 2:37 PM EDT 1,500 mg 650 mL/hr diphenhydrAMINE (Benadryl) (50 mg/mL) injection 25 mg 25 mg, Intravenous, ONCE, 1 dose, On Fri08/04/24 at 0830, Administer prior to riTUXimab, Routine Given 08/04/2024 9:12 AM EDT 25 mg DOXOrubicin (Adriamycin) injection 103 mg 103 mg (50 mg/m2/dose ? 2.06 m2 Treatment Plan BSA from Recorded weight), Intravenous, ONCE, 1 dose, On Fri08/04/24 at 0930, Warning Vesicant/Irritant Medication Administer each syringe over a minimum of 3 minutes. Given 08/04/2024 2:25 PM EDT 103 mg famotidine (Pepcid) (10 mg/mL) injection 20 mg 20 mg, Intravenous, ONCE, 1 dose, On Fri08/04/24 at 1015 Given 08/04/2024 9:48 AM EDT 20 mg LORazepam (Ativan) tablet 0.5 mg 0.5 mg, Oral, ONCE, 1 dose, On Fri08/04/24 at 0945, Routine Given 08/04/2024 9:47 AM EDT 0.5 mg palonosetron (Aloxi) (0.05 mg/mL) injection 0.25 mg 0.25 mg, Intravenous, ONCE, 1 dose, On Fri08/04/24 at 0830, Administer over 30 seconds., Routine Given 08/04/2024 9:07 AM EDT 0.25 mg predniSONE (Deltasone) tablet 100 mg 100 mg, Oral, ONCE, 1 dose, On Fri08/04/24 at 0900, Give first dose prior to riTUXimab, Routine Given 08/04/2024 9:06 AM EDT 100 mg riTUXimab-abbs (Truxima) 700 mg in sodium chloride 0.9% 350 mL infusion 700 mg (rounded from 772.5 mg = 375 mg/m2/dose ? 2.06 m2 Treatment Plan BSA from Recorded weight), Intravenous, ONCE, 1 dose, On Fri08/04/24 at 0900, Administer Per Protocol, Patient is a candidate for rapid infusion riTUXimab? No, Is this product being used for treatment of malignant indication? Yes, Rituxan/Truxima are NON-PREFERRED brands. Please indicate why this product is specifically required (vs. preferred Ruxience brand): Other reason (comment required), Comments: Patient's insurance requires Truxima biosimilar Restarted 08/04/2024 12:15 PM EDT New Bag 08/04/2024 10:13 AM EDT 700 mg sodium chloride 0.9 % (flush) (BD PosiFlush Normal Saline 0.9) flush 5-20 mL 5-20 mL, Intravenous, EVERY 1 MIN PRN, Starting on Fri08/04/24 at 0813, Until Fri08/04/24 at 1825, Line Care, Flush pertains to all indwelling lines. Flush per protocol found in the job aid using the link provided on this medication record. Refer to Intravenous (IV) Job Aid: Adult Flushing & Catheter Care (6368) job aid for additional information regarding guidelines and administration., Routine Given 08/04/2024 3:20 PM EDT 20 mLs sodium chloride 0.9% infusion 75 mL/hr, Intravenous, CONTINUOUS, Starting on Fri08/04/24 at 0830, Until Fri08/04/24 at 1825 New Bag 08/04/2024 9:10 AM EDT 75 mL/hr 75 mL/ hr documented in this encounter Care Teams Spun Paste Machine Operator Relationship Specialty Start Date End Date Danie Connor DO [address] [place] [phone] PCP - General Family Medicine 06/04/24 documented as of this encounter
--- OUTSIDE RECORDS SUMMARY | 2024-08-11 20:35 | XMS_ITS | Encounter Summary ---
Author Organization [facility] Address [facility] [place] [address] Care Team Providers Care Immigration Consultant Name Role Phone Geeta Danie Juli ORTEGA Primary Care Provider [phone] Reason for Visit * Reason Comments Chemotherapy [id number] * Treatment/Therapy Plan Authorization (Routine) - Authorized [...] 10MG, INJECTION (ADRIAMYCIN) TC CYCLOPHOSPHAMIDE, 100MG (CYTOXAN) [id number] (POLATUZUMAB VEDOTIN-PIIQ) Brett Herr MD [facility] [address] HEMATOLOGY [place] [address] Stj Hem Onc Infusion [address] [place] [phone] Referral ID Status Reason Start Date Expiration Date V isits Requested Visits Authorized [id number] Authorized 07/23/2024 07/23/2025 100 Encounter Details Date Type Department Care Team (Late st Contact Info) Description 08/05/2024 8:30 AM EDT Infusion Hematology Oncology at [address] [phone] 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 [...] Sign Reading Time Taken Comments Blood Pressure 113/64 08/05/2024 8:11 AM EDT Pulse 80 08/05/2024 8:11 AM EDT Temperature 36.4 ??C (97.6 ??F) 08/05/2024 8:11 AM ED T Respiratory Rate 18 08/05/2024 8:11 AM EDT Oxygen Saturation 98% 08/05/2024 8:11 AM EDT Inhaled Oxygen Concentration - - Weight 92.2 kg (203 lb 3.2 oz) 08/05/2024 8:11 A M EDT Height 170.2 cm (5' 7.01) 08/05/2024 8:11 AM ED T Body Mass Index 31.82 08/05/2024 8:11 AM EDT documented in this encounter Progress Notes * Marina Thao RN - 08/05/2024 8:30 AM EDT INFUSION THERAPY ADMINISTRATION NOTES DIAGNOSIS: DLBCL CYCLE #: C1D2 REASON FOR VISIT: Polatuzumab + fulphilia SUBJECTIVE Brett offers no complaints. He states he was a little light headed this morning but he thinks that is because he took a sleeping pill last night. He was accompanied by his sister, Ana. OBJECTIVE LAB DATA: Drawn[facility]day at [facility] for treatment. IV ACCESS: Port accessed in the clinic. Flushes readily with brisk blood return. Pre administration: Chemotherapy orders independently verified for drug name, route, and dosage per patient's height, weight and BSA by Marina Thao, RN & [facility]. REACTIONS (DESCRIPTION, TIME, INTERVENTION AND EFFECTIVENESS) None ASSESSMENT Brett was awake, alert and tolerated treatment well. He stated in the last 20 min of the 90 min observation time that he had a slight headache that was located just in his right presybeterian area. He noticed his hands got a little tingly at one point as well but he thinks that was due to the cold air. Once under the blankets this resolved. PLAN Return to clinic on 08/25 for consideration of C2. documented in this encounter Plan of Treatment Upcoming Encounters Date Type Department Care Team (Late st Contact Info) Description 08/25/2024 9:00 AM EDT Office Visit Hematology/Oncology at [address] [phone] Pia Cooper MD [facility] [address] HEMATOLOGY [place] [address] Shayla Vuong APRN [facility] HEMATOLOGY [place] [address] 08/25/2024 9:30 AM EDT Scheduled View Only Hematology/Oncology at [address] [phone] Ekta Womack RN 08/25/2024 9:30 AM EDT Infusion Hematology Oncology at [address] [phone] documented as of this encounter Visit Diagnoses Diagnosis 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 of multiple regions documented in this encounter Administered Medications Inactive Administered Medications - up to 3 most recent administrations Medication Order MAR Action Action Date Dose Rate Site acetaminophen (Tylenol) tablet 650 mg 650 mg, Oral, ONCE, 1 dose, On Christina 08/05/24 at 0815, Administer prior to Galo., Routine Given 08/05/2024 8:17 AM EDT 650 mg diphenhydrAMINE (Benadryl) capsule 50 mg 50 mg, Oral, ONCE, 1 dose, On Christina 08/05/24 at 0815, Administer prior to Galo, Routine Given 08/05/2024 8:17 AM EDT 50 mg pegfilgrastim-cbqv (Udenyca) (6 mg/0.6 mL) injection 6 mg 6 mg, Subcutaneous, ONCE, 1 dose, On Christina 08/05/24 at 0845, Bring to room temperature 15-30 minutes before administration, Routine Given 08/05/2024 10:21 AM EDT 6 mg Left Arm polatuzumab vedotin-piiq (Polivy) 150 mg in sodium chloride 0.9% 107.5 mL infusion 150 mg (rounded from 161.64 mg = 1.8 mg/kg/dose ? 89.8 kg Treatment plan Recorded weight), Intravenous, ONCE, 1 dose, On Christina 08/05/24 at 0915, Administer over 90 Minutes, Monitor patients for infusion-related reactions during the infusion and for a minimum of 90 minutes following completion of the initial dose of polatuzumab vedotin-piiq. If the previous infusion was well tolerated, the subsequent dose of polatuzumab vedotin-piiq may be administered as a 30-minute infusion and patients should be monitored during the infusion and for at least 30 minutes after completion of the infusion., This agent is restricted to outpatient use. Is this drug being given as an outpatient? Yes New Bag 08/05/2024 8:56 AM EDT 150 mg 71.7 mL/hr documented in this encounter Care Teams Immigration Consultant Relationship Specialty Start Date End Date Danie Connor DO [address] [place] [phone] PCP - General Family Medicine 06/04/24 documented as of this encounter
--- OUTSIDE RECORDS SUMMARY | 2024-08-11 20:35 | XMS_ITS | Continuity of Care Document ---
Author Organization [facility] Address [address] [place] [address] Care Team Providers Care Transportation Dispatch Manager Name Role Phone [facility]07/[facility] [address] [place] [phone] Encounter Diagnosis Right knee pain(Discharge Diagnosis) - 05/07/24 Discharge Disposition: Home or Self Care Attending [...] team information Care Team Personnel Name: [facility] Position: PowerChart View Only Member Role: Primary Care Physician Address: Address: [place] [address]- Name: Smita Allison MD Position: No Access Member Role: Informed Provider Address: Address: [address] Care Team Related Persons Name: MELISSA MCKEON Address: [facility] [address] [facility] [id number] Address: Home [address] [facility] [id number] Name: LOBITO ARREDONDO Address: Home [address] [facility] [phone]
--- OUTSIDE RECORDS SUMMARY | 2024-08-11 20:35 | XMS_ITS | Clinical Summary ---
Author Organization [facility] Address [facility] [place] [address] Care Team Providers Care Sustainability Analyst Name Role Phone Danie Connor DO Primary Care Provider [phone] Allergies No known active allergies Medications Medication Sig Dispensed Refills Start Date End Date Status lamoTRIgine (LaMICtal) 200 mg TabletIndications: Refractory epilepsy Take 1 tablet by mouth 2 times daily. 60 tablet 5 02/21/2021 Active Vimpat 200 mg TabletIndications: Refractory epilepsy Take 1/2 (one-half) tablet by mouth twice daily 60 tablet 3 08/24/2021 Active acyclovir (Zovirax) 400 mg tablet Take 1 tablet by mouth 2 times daily. 180 tablet 3 07/23/2024 Active allopurinoL (Zyloprim) 300 mg tablet Take 1 tablet by mouth daily for 30 days. Take for the first month of chemotherapy by mouth to prevent tumor lysis 30 tablet 07/23/2024 08/22/2024 Active prochlorperazine (Compazine) 10 mg tablet Take 1 tablet by mouth every 6 hours as needed for Nausea. Take every 6 hrs as needed for nausea 90 tablet 5 07/23/2024 Active predniSONE (Deltasone) 50 mg tablet Take 2 tablets by mouth daily. Take on days 2-5 of each cycle of chemotherapy by mouth 48 tablet 07/23/2024 Active ondansetron (Zofran) 8 mg tablet Take 1 tablet by mouth every 8 hours as needed for Nausea. 60 tablet 5 07/23/2024 Active sulfamethoxazole-t rimethoprim DS (Bactrim DS) 800-160 mg tabletIndications: Need for pneumocystis prophylaxis One tablet every Mon, Wed Friday 12 tablet 5 08/04/2024 Active ibuprofen (Advil) 200 mg tablet Take 400 mg by mouth as needed for Pain. Active Active Problems Problem Noted Date Diagnosed Date Diffuse large B-cell lymphom a of lymph nodes of multiple regions 07/23/2024 Seizure 11/20/2015 Encounters Date Type Department Care Team Description 08/11/2024 12:00 PM EDT Office Visit Hematology/Oncolo gy at [address] [address] Shayla Vuong, BUSINESS SOLUTIONS ARCHITECT Arrived 08/11/2024 Telephone [place]ematology [place] [address] Michelle Cast MD 08/11/2024 Travel 08/09/2024 Telephone Hematology Oncology Level [address] [place] [address] Xena Cheek MD 08/09/2024 Travel 08/05/2024 8:30 AM EDT Infusion Hematology Oncology at [address] [address] 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 of multiple regions 08/05/2024 Notes Only Hematology/Oncolo gy at [address] [address] Aurea Galindo, BICYCLE REPAIRMAN 08/04/2024 8:30 AM EDT Infusion Hematology Oncology at [address] [address] 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 of multiple regions 08/04/2024 8:00 AM EDT Office Visit Hematology/Oncolo gy at [address] [address] Shayla Vuong, BUSINESS SOLUTIONS ARCHITECT Need for pneumocystis prophylaxis; 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 of multiple regions; High risk medication use 08/04/2024 Notes Only Hematology/Oncolo gy at [address] [address] Aurea Galindo, BICYCLE REPAIRMAN 08/04/2024 Notes Only Hematology/Oncolo gy at [address] [address] Ekta Womack RN 08/04/2024 Orders Only Hematology/Oncolo gy at [address] [address] Shayla Vuong, BUSINESS SOLUTIONS ARCHITECT 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 of multiple regions 08/04/2024 Travel 08/03/2024 Orders Only [place]ematology [place] [address] Brett Herr MD 07/31/2024 Travel 07/27/2024 6:46 AM EDT - 07/27/2024 11:59 PM EDT Hospital [place] [phone] Brett Herr MD 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 of multiple regions Discharge Disposition: Home 07/26/2024 Orders Only Hematology [place] [address] Shayla Vuong APRN Lymphoma, unspecified body region, unspecified lymphoma type 07/24/2024 [place] [address] Donaldo Jha, 07/23/2024 4:00 PM EDT Office Visit [place]ology [place] [address] Brett Herr MD 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 of multiple regions 07/23/2024 Travel 07/19/2024 Telephone Hematology [place] [phone] Laquita Borden RN 07/19/2024 Telephone Hematology [place] [phone] Laquita Borden RN 07/16/2024 Travel 07/08/2024 Orders Only [place] [address] Shayla Vuong, CLEMENTE 07/06/2024 Orders Only Hematology and Oncology at [place] [phone] Shayla Vuong, BUSINESS SOLUTIONS ARCHITECT Encounter for monitoring cardiotoxic drug therapy; Encounter for echocardiogram before initiation of chemotherapy; 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 of multiple regions 06/28/2024 9:16 AM EDT - 06/28/2024 11:16 AM EDT Surgery Main Operating Room [place] [phone] Dorinda Pastrana MD BIOPSY OR EXCISION OF LYMPH NODE(S), OPEN, SUPERFICIAL (WRVU 3.79) 06/28/2024 8:49 AM EDT Anesthesia Event Main Operating Room [place] [phone] Dimitri Thorpe MD 06/28/2024 7:24 AM EDT - 06/28/2024 11:18 AM EDT Hospital Encounter Same Day Program at [place] [phone] Dorinda Pastrana MD Lymphoma, unspecified body region, unspecified lymphoma type Discharge Disposition: Home 06/25/2024 6:15 AM EDT - 06/25/2024 11:59 PM EDT Hospital En[place] [address] Brett Herr MD Discharge Disposition: Home 06/25/2024 6:15 AM EDT - 06/25/2024 11:59 PM EDT Hospital Encounter [place] [address] Brett Herr MD Discharge Disposition: Home 06/24/2024 9:17 AM EDT - 06/24/2024 11:59 PM EDT Hospital Encounter Non-[place] [address] Shayla Vuong, BUSINESS SOLUTIONS ARCHITECT Encounter for echocardiogram before initiation of chemotherapy; Lymphoma, unspecified body region, unspecified lymphoma type Discharge Disposition: Home 06/24/2024 Orders Only H[place] [address] Shayla Vuong, BUSINESS SOLUTIONS ARCHITECT Lymphoma, unspecified body region, unspecified lymphoma type 06/24/2024 Travel 06/22/2024 Travel 06/15/2024 Orders [place] [address] Dorinda Pastrana MD Lymphoma, unspecified body region, unspecified lymphoma type 06/15/2024 Telephone Hematology [place] [address] Yasmine Styles Paperwork 06/11/2024 10:15 AM EDT Laboratory Appointment [place] [address] [address] Lymphoma, unspecified body region, unspecified lymphoma type 06/11/2024 9:00 AM EDT Office Visit Hematology [place] [address] Brett Herr MD Pirruccello, Jonathan M, MD Lymphoma, unspecified body region, unspecified lymphoma type 06/11/2024 Orders Only Hemat[place] [address] Shayla Vuong, BUSINESS SOLUTIONS ARCHITECT Encounter for echocardiogram before initiation of chemotherapy; Lymphoma, unspecified body region, unspecified lymphoma type 06/11/2024 Travel 06/04/2024 10:13 AM EDT - 06/04/2024 11:59 PM EDT Hospital [place] [address] Discharge Disposition: Home 06/04/2024 External [place] [address] Provider, Scanning 05/27/2024 Transcribe Orders eDH Incoming Referrals [phone] Moisés Chery MD Localized swelling, mass and lump, neck 05/19/2024 1:00 PM EDT Ancillary Procedure Radiology Library at [facility] [address] Elgin Medina 05/19/2024 Interpretation Only [place] [phone] Elgin Medina from Last 3 Months Social History Tobacco [...] on file Sexual Orientation Not on file Last Filed Vital Signs Vital Sign Reading Time Taken Comments Blood Pressure 113/75 08/11/2024 11:46 AM EDT Pulse 85 08/11/2024 11:46 AM EDT Temperature 36.5 ??C (97.7 ??F) 08/11/2024 11:46 AM E DT Respiratory Rate 16 08/11/2024 11:46 AM EDT Oxygen Saturation 98% 08/11/2024 11:46 AM EDT Inhaled Oxygen Concentration - - Weight 88.9 kg (196 lb) 08/11/2024 11:46 AM EDT Height 170.2 cm (5' 7.01) 08/11/2024 11:46 AM E DT Body Mass Index 30.69 08/11/2024 11:46 AM EDT Plan of Treatment Upcoming Encounters Date Type Department Care Team (Late st Contact Info) Description 08/25/2024 9:00 AM EDT Office Visit Hematology/Oncology at [address] [phone] Pia Cooper MD [facility] [place] [address] Shayla Vuong APRN [facility] [place] [address] 08/25/2024 9:30 AM EDT Scheduled View Only Hematology/Oncology at [address] [address] Ekta Womack RN 08/25/2024 9:30 AM EDT Infusion Hematology Oncology at [address] [phone] Health Maintenance Due Date Last Done Comments CT Colonography 1973 Colonoscopy 1973 Colorectal Cancer Screening 1973 FIT DNA 1973 FIT 1973 Sigmoidoscopy (10 year) with FIT yearly 1973 Sigmoidoscopy 1973 Lipid Screening 1991 Hepatitis B vaccine (0-59 yrs) (1) 1992 Tdap adult 1992 Tetanus vaccine 1992 Zoster vaccine (1 of 2) 2023 Covid-19 Vaccine (3 - season) 2024, 03/28/2021 Influenza (Flu) vaccine (1 o f 1 - Influenza standard series) 08/01/2024 Diabetes Screening (HgbA1C or Glucose) 06/11/2027 HIV screen Completed 06/11/2024 Hepatitis C Screening Completed 06/11/2024 Medical Devices Implanted Type Area Marble Setter Helper Device Identifier Shelf Expiration Date Model / Serial / Lot Angiodynamics 6.6fr Port Ct Vortex Low Pro Implanted:Qty: 1 on 07/27/2024 by Gutierrez Skinner PA IMPLANTS Left: Vein 06/30/2026 [id number] / [id number] I / [id number] Description:6.6FR LOW PRO VO RTEX ANGIODYNAMICS Procedures Procedure Name Priority Date/Time Associated Diagnosis Comments LAB SCAN 08/11/2024 12:00 AM EDT EXTERNAL HEMATOLOGY LAB RESULTS Routine 08/11/2024 EXTERNAL CHEMISTRY LAB RESULTS Routine 08/11/2024 LAB SCAN 08/04/2024 12:00 AM EDT EXTERNAL HEMATOLOGY LAB RESULTS Routine 08/04/2024 EXTERNAL CHEMISTRY LAB RESULTS Routine 08/04/2024 IR MEDIPORT PLACEMENT STAT 07/27/2024 9:06 AM EDT 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 of multiple regions SURGICAL PATHOLOGY REPORT Routine 06/28/2024 9:55 AM EDT SPECIMEN TO PATHOLOGY Routine 06/28/2024 9:55 AM EDT CHROMO REPORT ACQUIRED Routine 9:55 AM EDT FLOW CYTOMETRY REPORT Routine 06/28/2024 9:30 AM EDT CHROMO REPORT ACQUIRED Routine 9:30 AM EDT IMMUNOPHENOTYPING FLOW CYTOMETRY (BLOOD) Routine 06/28/2024 9:30 AM EDT Biopsy/Excision Lymph Node Open Superficial (31967) Yes 06/28/2024 8:51 AM EDT Lymphoma, unspecified body region, unspecified lymphoma type BIOPSY OR EXCISION OF LYMPH NODE(S),OPEN,SUPERFICIAL Routine 06/28/2024 7:44 AM EDT Lymphoma, unspecified body region, unspecified lymphoma type NM PET CT SKULL BASE TO MID-THIGH ([facility]) STAT 06/25/2024 7:48 AM EDT Lymphoma, unspecified body region, unspecified lymphoma type POCT GLUCOSE Routine 06/25/2024 6:29 AM EDT ECHO COMPLETE Routine 06/24/2024 10:58 AM EDT Encounter for echocardiogram before initiation of chemotherapy Lymphoma, unspecified body region, unspecified lymphoma type DIFFERENTIAL, AUTOMATED Routine 06/11/20 10:10 AM EDT Lymphoma, unspecified body region, unspecified lymphoma type HEMOGRAM Routine 06/11/2024 10:10 AM EDT Lymphoma, unspecified body region, unspecified lymphoma type CBC (WITH DIFF) Routine 06/11/2024 10:10 AM EDT Lymphoma, unspecified body region, unspecified lymphoma type COMPREHENSIVE METABOLIC PANEL Routine 06/11/2024 10:10 AM EDT Lymphoma, unspecified body region, unspecified lymphoma type HIV SCREEN, 4TH GENERATION ([facility]/CGP/APD/NLH) Routine 06/11/2024 10:10 AM EDT Lymphoma, unspecified body region, unspecified lymphoma type LACTATE DEHYDROGENASE Routine 06/11/2024 10:10 AM EDT Lymphoma, unspecified body region, unspecified lymphoma type HEPATITIS B CORE ANTIBODY, TOTAL Routine 06/11/2024 10:10 AM EDT Lymphoma, unspecified body region, unspecified lymphoma type HEPATITIS B SURFACE ANTIBODY Routine 06/11/2024 10:10 AM EDT Lymphoma, unspecified body region, unspecified lymphoma type HEPATITIS B SURFACE ANTIGEN Routine 06/11/2024 10:10 AM EDT Lymphoma, unspecified body region, unspecified lymphoma type HEPATITIS C ANTIBODY Routine 06/11/2024 10:10 AM EDT Lymphoma, unspecified body region, unspecified lymphoma type URIC ACID Routine 06/11/2024 10:10 AM EDT Lymphoma, unspecified body region, unspecified lymphoma type SURGICAL PATHOLOGY REPORT Routine 06/04/2024 10:13 AM EDT SURGICAL PATHOLOGY SCAN Routine 06/04/2024 FILM LIBRARY STORAGE ONLY ULTRASOUND STUDY Routine 05/19/2024 1:00 PM EDT ULTRASOUND SCAN (SCAN) 4 12:00 AM EDT ULTRASOUND SCAN (SCAN) 4 12:00 AM EDT from Last 3 Months Results * External Hematology Lab Results (08/11/2024) Only the most recent of2 resultswithin the time period is included. WBC - External 0.60 Hemoglobin - External 12.2 Hematocrit - External 35.3 Platelets - External 160 Neutr ABS (ANC) - External 0.03 08/11/2024 Historical Provider MD [facility] OR[facility] JEFFRI[facility] * External Chemistry Lab Results (08/11/2024) Only the most recent of2 resultswithin the time period is included. Creatinine - External 1 Potassium - External 3.6 AST (SGOT) - External 23 ALT (SGPT) - External 23 Total Bilirubin - External 1.16 LDH - External 189 08/11/2024 Historical Provider MD [facility] KALEIGH JEFFRIES * Scan Doc: Lab (08/11/2024 12:00 AM EDT) Only the most recent of2 resultswithin the time period is included. Narrative 08/11/2024 12:00 AM EDT Ordered by an unspecified provider. Scanning Provider MEDIA MGR SCAN EXT O RDR/RSLT * IR Mediport Placement (07/27/2024 9:06 AM EDT) Anatomical Region Laterality Modality X-Ray Angiograph y Narrative 07/27/2024 10:39 AM EDT Interventional Radiology Procedure Note Procedure: Chest port implant Indication: Diffuse large B-cell lymphoma, durable chcf central venous access for chemotherapy Procedure summary: [...] junction. The port may be used immediately. panelboard operator: Gutierrez Skinner PA-C. Present during the intraservice time as documented by the interventional radiology nurse. Attending of record: Shadi HUDSON was not present 07/27/2024 Brett Herr MD IMG IR ORDERABLES * chromo report acquired (06/28/2024 9:55 AM EDT) Only the most recent of2 resultswithin the time period is included. Pathologist [facility] Acquired Report Final Report ? [id number] Specimen Type: Fixed Tissue Specimen Condition: 1 H&E and 8 unstained slides, adequate Collection Date/Time: 06/28/2024 09:55 Received Date/Time: 06/30/2024 11:19 Indication: ??Diffuse Large B-Cell Lymphoma ---Summary--- NEGATIVE for all FISH panel markers. ---Results--- Diffuse Large B-Cell Lymphoma FISH Panel: ?? BCL6, MYC, MYC/IGH, CCND1/IGH and BCL2 gene rearrangements NOT DETECTED. ---Karyotype--- nuc charlie(BCL6x2)[100],( MYCx2)[100],(MYC,I GH)x2[100],(CCND1, IGH)x2[100],(BCL2x 2)[100] ---Preparation--- Culture Type: Formalin fixed paraffin-embedded tissue slides FISH Method: Interphase FISH ---Interpretation- -- Interphase FISH analysis using dual-color, break-apart probes for BCL6/3q27 rearrangement ([employer] shows 1.0% of 100 cells with a BCL6 rearrangement signal pattern. This is within the acceptable reference limits (0-7.4%). Thus, there is no evidence for BCL6/3q27 gene rearrangement. Interphase FISH analysis using dual-color, break-apart probes for MYC/8q24 rearrangement ([employer] shows 0% of 100 cells with a MYC rearrangement signal pattern. This is within acceptable reference limits (0-6.0%). Thus, there is no evidence for MYC/8q24 gene rearrangement. Interphase FISH analysis using dual-color, dual-fusion probes for MYC-IGH/t(8;14)(q2 4;q32) ([employer] shows 0% of 100 cells with an MYC-IGH rearrangement signal pattern. This is within acceptable reference limits (0-3.0%). Thus, there is no evidence for MYC-IGH/t(8;14) gene rearrangement. Interphase FISH analysis using dual-color, dual-fusion probes for CCND1-IGH/t(11;14) (q13;q32) ([employer] shows 0% of 100 cells with an CCND1-IGH rearrangement signal pattern. This is within acceptable reference limits (0-3.0%). Thus, there is no evidence for CCND1-IGH/t(11;14) gene rearrangement. Interphase FISH analysis using dual-color, break-apart probes for BCL2/18q21 rearrangement ([employer] shows 0% of 100 cells with BCL2 rearrangement signal pattern. This is within acceptable reference limits (0-6.0%). Thus, there is no evidence for BCL2/18q21 gene rearrangement. ---Recommendation- -- Correlation with clinical and pathological studies is suggested. ---Limitations & Disclaimers--- The FISH test was developed and its performance characteristics were determined by the [facility] ([facility]) [facility]ogenetics Laboratory as required by The Clinical Laboratory Improvement Amendments (CLIA? 88) regulations. It has not been cleared or approved for specific uses by the U.S. Food and Drug Administration (FDA). The FDA has determined that such clearance or approval is not necessary. This test is used for clinical purposes. It should not be regarded as investigational or for research. Pursuant to the requirements of CLIA? 88, this laboratory has established and verified the test? s accuracy and precision. The [facility] is certified under the CLIA? 88 as qualified to perform high complexity clinical laboratory testing. Chromosome alterations outside the regions complementary to these DNA FISH probes will not be detected. 07.11.24 (Electronic Signature) Verified By: Cheri Ph.D., FAC, Leah A Clinical Arts Administrator/Mol ecular Batch And Furnace Operator [facility] 06/28/2024 9:55 AM EDT 06/30/2024 11:19 AM EDT Dorinda Pastrana MD HEMATOLOGY ORDERABLE S [facility] [place] [phone] * (ABNORMAL) Surgical Pathology Report (06/28/2024 9:55 AM EDT) Only the most recent of2 resultswithin the time period is included. Surgical Pathology Report [id number] ? Location: [facility]; [facility]; The signing pathologist has (i) examined the relevant preparation(s) for the specimen(s) and (ii) rendered or confirmed the diagnosis(es). . ?Surgical Pathology DIAGNOSIS A - Right submandibular mass - ??Diffuse large B-cell lymphoma- NOS (See Discussion) Electronically signed by: ?Shira SALAS, [facility] Verified: ??06/30/2024 17:09 ??Hematopathologist Performed at: ??-[facility] Dept. of Pathology, [place] [address] Limnologist: Jami Garza MD, AP, ??CLIA Certificate: [id number] SYNOPTIC THIS RESULT REQUIRES PHYSICIAN/A.P.P. FOLLOW UP DISCUSSION The submandibular mass contains a diffuse proliferation ? of large abnormal lymphocytes with vesicular nuclear chromatin, prominent nucleoli and ample cytoplasm. Lymph nodes submitted with the mass show partial involvement. ? Flow cytometry ([id number]) ?? showed a CD10+ kappa immunoglobulin light chain restricted B-cell population identified. The morphology, immunoprofile, and flow cytometry are consistent with the diagnosis of diffuse large B-cell lymphoma NOS. ADDITIONAL STUDIES Immunohistochemistry Studies: Interpretation: ??Formalin-fixed, paraffin-embedded tissue sections are studied for CD3, CD20, CD10, Bcl2, Bcl6, MUM1, cMYC, Ki67, Cyclin D1, ??on block(s) A1 using the polymer Technique with appropriate controls. ??The large abnormal lymphocytes are positive for CD20, BCl2(<50%), cMYC(<40%), Bcl6+ and negative for the rest of the markers they were tested for . These IHC's provide the pathologist with adjunctive diagnostic information. ??Antibody specificity has been verified by testing antibodies on a series of in-house tissues with known immunohistochemical performance characteristics. ??The clinical interpretation of any antibody-positive staining or its absence is evaluated within the context of clinical presentation, morphology, histopathological criteria, and other diagnostic tests. Morphologic appearance : ?DLBCL like [id number] classification : ?? Germinal center BCl2/MYC double-expressor (IHC) : Negative Cytogenetics : Pending Cytogenetic/FISH for MYC, Bcl2, Bcl6 rearrangements are ongoing . Should MYC rearrangements be seen along with an additional FISH rearrangement of BCl2 and/or BCl6, the findings will be compatible with a diagnosis of Double HIT/Triple HIT lymphoma. ?? Addendum/Separate report to follow. Eddie SH et al . 2016 revision WHO of lymphoid neoplasms . Blood . 2016. 127 (20):6631-2058. Troy CP et al . Blood 103:275-282 . SPECIMEN(S) SUBMITTED A - right submandibular mass for lymphoma work up, biopsy (1) CLINICAL INFORMATION Right submandibular lymphadenopathy SPECIMEN PROCESSING A - Labeled/Fixative: Right submandibular mass for lymphoma workup, fresh. Quantity/Size: ??Fragments, 3.7 x 3.0 x 1.0 cm in aggregate. Tissue Description: Pacheco-pink, fleshy tissue fragments admixed with minimal pacheco- yellow adipose tissue. ??No normal-appearing salivary gland is grossly appreciated. Additionally, there are 2 pacheco-pink possible lymph nodes within the adipose tissue, each measuring 1.0 cm in greatest dimension. Sections/Processing: Touch prep(s) are prepared. Tissue is submitted to flow cytometry. Tissue is submitted to cytogenetics. Outside Sales Inspector sections in 5 cassettes labeled A1-A5. A1-A3: Outside Sales Inspector fleshy tissue A4: Single bisected possible lymph node A5: Single bisected possible lymph node ??jnr(A) [facility] AP Specimen 06/28/2024 9:55 AM EDT Dorinda Pastrana MD PATHOLOGY/CYTOLOGY O [place] Performing Organization Address [facility] de Phone Number [facility] [place] [address] * Specimen to Pathology (06/28/2024 9:55 AM EDT) AP Specimen 06/28/2024 9:55 AM EDT 06/28/2024 9:55 AM EDT Narrative [facility] - 06/28/2024 9:55 AM EDT Specimen requisition ordered. ??Separate Pathology report to follow Dorinda Pastrana MD PATHOLOGY/CYTOLOGY O [place] Performing Organization Address [facility] [place] [address] * Immunophenotyping Flow Cytometry (06/28/2024 9:30 AM EDT) Immunophenotyping Flow See Comment [facility] Comment: When completed by the Pathologist, the Flow Cytometry Report ([id number]) will display under the Pathology Results section within eDH. Other Other / Unknown 06/28/2024 9 :30 AM EDT 06/28/2024 10:53 AM EDT Narrative Resulting Agency Comment Spec In Lab Dorinda Pastrana MD HEMATOLOGY ORDERABLE S Performing Organization Address [facility] de Phone Number [facility] [place] [address] * Flow Cytometry Report (06/28/2024 9:30 AM EDT) Flow Cytometry Report [id number] ? Location: SDP; SD39; A The signing pathologist has (i) examined the relevant preparation(s) for the specimen(s) and (ii) rendered or confirmed the diagnosis(es). . ?Flow Cytometry DIAGNOSIS Flow cytometry diagnosis: CD10+ ??kappa immunoglobulin light chain restricted B-cell population identified. see discussion Electronically signed by: ?Henry Silva MD Verified: ??06/29/2024 14:16 ??Hematopathologist Performed at: ??-[facility] Dept. of Pathology, [place] [address] Limnologist: Jami Garza MD, FCAP, ??CLIA Certificate: [id number] DISCUSSION Cell viability was 84% as assessed by 7-AAD exclusion. The specimen contained a population of CD19, CD20, and CD10 positive B lymphocytes that had a monotypic staining pattern for kappa immunoglobulin light chain. NOTE. The findings support the diagnosis of lymphoma and indicate B-cell phenotype. The most frequent types of lymphoma that exhibit CD10 positive B-cell phenotype includes follicular lymphoma, diffuse large B-cell lymphoma and Burkitt lymphoma. Morphologic correlation is required to distinguish among these possibilities. Flow analysis is an ancillary study. A definite diagnosis requires correlation with the morphologic features of this process and if necessary, correlation with other ancillary studies like immunohistochemistr y, enzyme cytochemistry and/or cyto/ molecular genetics. This test was developed and its performance characteristics determined by the Clinical Flow Cytometry Laboratory at [facility]. It has not been cleared or approved by the U.S. Food and Drug Administration. ??The FDA has determined that such clearance or approval is not necessary. ??This test is used for clinical purposes. ??It should not be regarded as investigational or for research. This laboratory is certified under the Clinical Laboratory Improvement Act of 1988 (CLIA) as qualified to perform high complexity clinical laboratory testing. SPECIMEN PROCESSING [id number] Cells for immunophenotypic analysis were derived from right submandibular mass. CD45 vs side scatter gating was utilized to identify a lymphoid analysis region that comprises approximately 87-89% of all cells. The following markers were assessed: CD2, CD3, CD4, CD5, CD7, CD8, CD10, CD19, CD20, CD23, CD38, CD45, CD56, FMC-7, kappa light chain, and lambda light chain. CLINICAL INFORMATION adenopathy [facility] 06/28/2024 9:30 AM EDT Dorinda Pastrana MD PATHOLOGY/CYTOLOGY O RDERABLES [facility] [place] [place] [address] * NM PET CT Skull Base to Mid-thigh (06/25/2024 7:48 AM EDT) WORKSTATION ID [id number] RAD Anatomical Region Laterality Modality Positron Emissio n Tomography (PET) Impressions 06/25/2024 8:30 AM EDT 1. ??An FDG avid right sided level 2A cervical lymph node is suspicious for a site of lymphoma. 2. ??There is asymmetrically increased activity in the right submandibular gland. Asymmetric salivary gland activity may be a physiologic variant but involvement by lymphoma is also a consideration. 3. ??No active lymphoma is identified in the chest, abdomen or pelvis. Thank you for letting us participate in the care of this patient. ??If you are a health care provider and have any questions regarding this report, please contact the number below. ??For patients who have questions please contact the health school child care attendant that requested your imaging first. ? Electronically signed by: Jose Martinez MD, [facility] ([phone]), at 06/25/2024 8:30 AM Narrative 06/25/2024 8:30 AM EDT EXAMINATION: NM PET CT STANDARD SKULL BASE TO MID-THIGH CLINICAL HISTORY: Lymphoma staging C85.90, Non-Hodgkin lymphoma, unspecified, unspecified site TECHNIQUE: Following IV injection of 42-kstpti-8-deoxyglucose (FDG) a standard uptake of approximately 60 minutes, a noncontrast CT scan followed by a PET scan were acquired from the base of the skull to mid thighs. The noncontrast CT was used for anatomic localization and photon attenuation correction of the PET scan. Blood glucose level: 103 (mg/dL) FDG dose: 13.2 mCi COMPARISON: None FINDINGS: HEAD/NECK: A 0.6 cm FDG avid right-sided level 2A lymph node is present (image 23). Additional small symmetric FDG avid bilateral level two lymph nodes are likely reactive. There is a small focus of increased activity in the left parotid gland most typical of a benign neoplasm such as a Warthin's tumor or pleomorphic adenoma. Activity within the submandibular glands is asymmetric, relatively increased in the right side (image 20). CHEST: Normal activity in all soft tissue regions. ABDOMEN/PELVIS: Normal activity in all soft tissue regions. A small focus of decreased attenuation is present in the inferior pole of the right lobe of the liver. This cannot be fully characterized but most likely represents a cyst or hemangioma. SKELETON/EXTREMITIES: Normal activity in all regions of the axial and visualized appendicular skeleton. A focal area of sclerosis in the left iliac bone (image 206) is most suggestive of a bone island. There is a small focal lucency in the manubrium with no abnormal associated activity (image 68). This is of uncertain etiology but may represent a cyst. Procedure Note Jose Martinez MD - 06/25/2024 EXAMINATION: NM PET CT STANDARD SKULL BASE TO MID-THIGH CLINICAL HISTORY: Lymphoma staging C85.90, Non-Hodgkin lymphoma, unspecified, unspecified site TECHNIQUE: Following IV injection of 12-ewzskm-5-deoxyglucose (FDG) astandard uptake of approximately 60 minutes, a noncontrast CT scan followed by aPET scan were acquired from the base of the skull to mid thighs. The noncontrast CTwas used for anatomic localization and photon attenuation correction of thePET scan. Blood glucose level: 103 (mg/dL) FDG dose: 13.2 mCi COMPARISON: None FINDINGS: HEAD/NECK: A 0.6 cm FDG avid right-sided level 2A lymph node is present (image 23). Additional small symmetric FDG avid bilateral level two lymph nodes arelikely reactive. There is a small focus of increased activity in the left parotid glandmost typical of a benign neoplasm such as a Warthin's tumor or pleomorphicadenoma. Activity within the submandibular glands is asymmetric, relativelyincreased in the right side (image 20). CHEST: Normal activity in all soft tissue regions. ABDOMEN/PELVIS: Normal activity in all soft tissue regions. A small focus of decreased attenuation is present in the inferior pole ofthe right lobe of the liver. This cannot be fully characterized but mostlikely represents a cyst or hemangioma. SKELETON/EXTREMITIES: Normal activity in all regions of the axial and visualized appendicular skeleton. A focal area of sclerosis in the left iliac bone (image 206) is mostsuggestive of a bone island. There is a small focal lucency in the manubrium with no abnormalassociated activity (image 68). This is of uncertain etiology but may represent acyst. IMPRESSION 1. An FDG avid right sided level 2A cervical lymph node is suspicious fora site of lymphoma. 2. There is asymmetrically increased activity in the right submandibulargland. Asymmetric salivary gland activity may be a physiologic variant butinvolvement by lymphoma is also a consideration. 3. No active lymphoma is identified in the chest, abdomen or pelvis. Thank you for letting us participate in the care of this patient. If youare a health care provider and have any questions regarding this report,please contact the number below. For patients who have questions please contactthe health school child care attendant that requested your imaging first. Brett Herr MD IMG PET ORDERABLES * POCT Glucose (06/25/2024 6:29 AM EDT) Glucose, POC 103 65 - 199 mg/dL [facility] Comment: Supplemental ranges: <140 mg/dL before meals <180 mg/dL all other times of the day Blood 06/25/2024 6:29 AM EDT 06/25/2024 6:29 AM EDT Brett Herr MD POINT OF CARE TEST ORDERABLES Performing Organization Address [facility]/State/ZIP Co de Phone Number [facility] [place] [address] * ECHO COMPLETE (06/24/2024 10:58 AM EDT) Anatomical Region Laterality Modality Cardiac Other 06/24/2024 10:1 5 AM EDT Narrative 06/24/2024 11:10 AM EDT [address] [place] [id number] ? Echocardiogram Report Name: BRETT CAMPOS ? Study Date: 06/24/2024 10:15 AMBP: 130/86 mmHg ? Patient Location: 4A : 1975 ? Height: 173 cm ? Account: [id number] Age: 48 yrs ? Weight: 90 kg Gender: Male ?BSA: 2.0 m2 Ordering Physician: SHAYLA VUONG Referring Physician: SHAYLA VUONG Performed By: Clotilde Kaur RDCS Reason For Study: Encounter for echocardiogram before initiation of chemotherapy, Lymphoma Exam Location: [facility]. Interpretation Summary -Left ventricular systolic function is normal. The left ventricular ejection fraction is 56% by High's biplane. Global longitudinal strain is normal at - 17.1%. There are no segmental wall motion abnormalities. Left ventricular diastolic function is normal. -The right ventricle is of normal size. Right ventricular systolic function is normal. -No valve disease. -Normal hemodynamics. -See report for additional findings. No comparison study is available. Procedure Complete-70504. Left ventricular strain. Satisfactory quality. Left Ventricle Left ventricle is of normal size. Wall thickness is normal. There is no left ventricular outflow tract obstruction. There is no ventricular septal defect. Left ventricular systolic function is normal. The left ventricular ejection fraction is 56% by High's biplane. Global longitudinal strain is measured at -17.1 %. (GE). There are no segmental wall motion abnormalities. Right Ventricle The right ventricle is of normal size. Right ventricular systolic function is normal. Left Atrium The left atrium is normal. No abnormality of the interatrial septum is identified. Right Atrium The right atrium is normal. Aortic Valve The aortic valve is tricuspid. The aortic valve is mildly thickened. There is no aortic stenosis. There is no aortic regurgitation. Mitral Valve The mitral valve leaflets are thickened. There is no mitral stenosis. There is trace mitral regurgitation. Tricuspid Valve The tricuspid valve is structurally normal. There is trace tricuspid regurgitation. Pulmonic Valve The pulmonic valve appears to be structurally normal. There is trace pulmonic valve regurgitation. Great Arteries The diameter at the level of the sinuses of Valsalva is 3.2 cm. The maximum diameter of the proximal ascending aorta is 3.2 cm. No abnormalities of the pulmonary artery are identified. Venous Inferior vena cava is normal in size. Inferior vena cava collapse greater than 50% with respiration. Pericardium/Pleural There is no pericardial effusion. Hemodynamics The peak right ventricular systolic pressure is 16 mmHg. The estimated right atrial pressure is 3mmHg. Left ventricular diastolic function is normal. Left ventricular filling pressure is normal. Ejection Fraction ?2D Measurements ? Volumes EF(MOD-bp): 56.4 % ?IVSd: 1.0 cm ? LAV(MOD- bp) Indexed: ?LVIDd: 3.9 cm ?LVIDs: 3.5 cm ?19.5 ml/m2 ?LVPWd: 0.80 cm ? RA A4Cs_phl: 12.7 cm2 ? EDV(MOD-bp) Indexed: ?RWT: 0.41 {ratio} ?LV mass(C)d: 108.1 grams ? 46.2 ml/m2 ?LV mass(C)dI: 52.9 grams/m2 ?ESV(MOD- bp) Indexed: ?Ao root diam: 3.2 cm ? 20.1 ml/m2 ?Ao root diam index: 1.5 ?SV(LVOT): 61.3 ml ?asc Aorta Diam: 3.2 cm ?LVOT diam: 2.0 cm ?SI(LVOT): 30.0 ml/m2 ?TAPSE_phl: 1.9 cm Doppler LV V1 VTI: 18.9 cm Ao V2 VTI: 21.6 cm Ao Max: 112.2 cm/sec Ao valve max: 5.0 mmHg Ao valve mean: 2.5 mmHg MV E max chuckie: 92.3 cm/sec MV A max chuckie: 75.3 cm/sec MV E/A: 1.2 MV dec time: 0.21 sec Lat Peak E' Chuckie: 11.9 cm/sec E/e' (lat): 7.8 Med Peak E' Chuckie: 10.1 cm/sec E/e' (med): 9.1 E/e' Average: 8.4 ZULEYMA(I,D): 2.8 cm2 Dimensionless index Aov: 0.88 TR max chuckie: 182.3 cm/sec RVSP(TR): 16.3 mmHg Procedure Note Júnior Higgins MD - 06/24/2024 [address] [id number] Echocardiogram Report Name: BRETT CAMPOS Saroj Study Date: 0:15 AMBP: 130/86 mmHg Patient Location: : 1975 Height: 173 cm Account: [id number] Age: 48 yrs Weight: 90 kg Gender: Male BSA: 2.0 m2 Ordering Physician: SHAYLA VUONG Referring Physician: SHAYLA VUONG Performed By: Clotilde Kaur PARAM Reason For Study: Encounter for echocardiogram before initiation ofchemotherapy, Lymphoma Exam Location: [facility]. Interpretation Summary -Left ventricular systolic function is normal. The left ventricularejection fraction is 56% by High's biplane. Global longitudinal strain is normalat - 17.1%. There are no segmental wall motion abnormalities. Leftventricular diastolic function is normal. -The right ventricle is of normal size. Right ventricular systolicfunction is normal. -No valve disease. -Normal hemodynamics. -See report for additional findings. No comparison study is available. Procedure Complete-[id number]. Left ventricular strain. Satisfactory quality. Left Ventricle Left ventricle is of normal size. Wall thickness is normal. There is noleft ventricular outflow tract obstruction. There is no ventricular septaldefect. Left ventricular systolic function is normal. The left ventricular ejectionfraction is 56% by High's biplane. Global longitudinal strain is measured at -17.1%. (GE). There are no segmental wall motion abnormalities. Right Ventricle The right ventricle is of normal size. Right ventricular systolic functionis normal. Left Atrium The left atrium is normal. No abnormality of the interatrial septum isidentified. Right Atrium The right atrium is normal. Aortic Valve The aortic valve is tricuspid. The aortic valve is mildly thickened. Thereis no aortic stenosis. There is no aortic regurgitation. Mitral Valve The mitral valve leaflets are thickened. There is no mitral stenosis.There is trace mitral regurgitation. Tricuspid Valve The tricuspid valve is structurally normal. There is trace tricuspid regurgitation. Pulmonic Valve The pulmonic valve appears to be structurally normal. There is tracepulmonic valve regurgitation. Great Arteries The diameter at the level of the sinuses of Valsalva is 3.2 cm. Themaximum diameter of the proximal ascending aorta is 3.2 cm. No abnormalities ofthe pulmonary artery are identified. Venous Inferior vena cava is normal in size. Inferior vena cava collapse greaterthan 50% with respiration. Pericardium/Pleural There is no pericardial effusion. Hemodynamics The peak right ventricular systolic pressure is 16 mmHg. The estimatedright atrial pressure is 3mmHg. Left ventricular diastolic function is normal.Left ventricular filling pressure is normal. Ejection Fraction 2D Measurements Volumes EF(MOD-bp): 56.4 % IVSd: 1.0 cm LAV(MOD-bp)Indexed: LVIDd: 3.9 cm LVIDs: 3.5 cm 19.5 ml/m2 LVPWd: 0.80 cm RA A4Cs_phl: 12.7cm2 EDV(MOD-bp)Indexed: RWT: 0.41 {ratio} LV mass(C)d: 108.1 grams 46.2 ml/m2 LV mass(C)dI: 52.9 grams/m2 ESV(MOD-bp)Indexed: Ao root diam: 3.2 cm 20.1 ml/m2 Ao root diam index: 1.5 SV(LVOT): 61.3ml asc Aorta Diam: 3.2 cm LVOT diam: 2.0 cm SI(LVOT): 30.0ml/m2 TAPSE_phl: 1.9 cm Doppler LV V1 VTI: 18.9 cm Ao V2 VTI: 21.6 cm Ao Max: 112.2 cm/sec Ao valve max: 5.0 mmHg Ao valve mean: 2.5 mmHg MV E max chuckie: 92.3 cm/sec MV A max chuckie: 75.3 cm/sec MV E/A: 1.2 MV dec time: 0.21 sec Lat Peak E' Chuckie: 11.9 cm/sec E/e' (lat): 7.8 Med Peak E' Chuckie: 10.1 cm/sec E/e' (med): 9.1 E/e' Average: 8.4 ZULEYMA(I,D): 2.8 cm2 Dimensionless index Aov: 0.88 TR max chuckie: 182.3 cm/sec RVSP(TR): 16.3 mmHg Shayla Vuong APRN ECHO ORDERABLES * Hemogram (06/11/2024 10:10 AM EDT) White Blood Cell 5.6 4.0 - 9.5 x10(3)/[facility] Red Blood Cell 4.90 4.58 - 5.54 x10(6)/[facility] Hemoglobin 14.9 13.7 - 16.5 g/dL [facility] Hematocrit 43.0 40.5 - 48.5 % [facility] Mean Cell Volume 87.8 82.9 - 93.1 fL [facility] Mean Cell Hemoglobin 30.4 27.5 - 32.1 pg [facility] Mean Cell Hemoglobin Concentration 34.7 32.0 - 35.7 g/dL [facility] Platelet 227 145 - 357 x10(3)/[facility] RDW Standard Deviation 41.3 36.0 - 45.0 [facility] RDW coefficient of variation 12.9 11.4 - 13.8 % [facility] Mean Platelet Volume 9.4 7.6 - 12.9 [facility] NRBC% auto 0.0 % [facility] NRBC Absolute 0.000 0.000 - 0.000 x10(3)/[facility] Blood 06/11/2024 10:1 0 AM EDT 06/11/2024 10:24 AM EDT Narrative Resulting Agency Comment Spec In Lab Brett Herr MD HEMATOLOGY ORDERAB LES [facility] [place] [address] * Differential, Automated (06/11/2024 10:10 AM EDT) Neutrophil % 61.9 % [facility] Neutrophil Absolute 3.46 1.70 - 6.10 x10(3)/[facility] Lymph % 26.3 % [facility] Lymphocytes Abs 1.5 0.9 - 3.2 x10(3)/[facility] Monocyte % 8.1 % [facility] Monocyte Abs 0.4 0.3 - 0.9 x10(3)/[facility] Eos % 2.5 % [facility] Eosinophils Abs 0.1 0.0 - 0.4 x10(3)/[facility] Basophil % 0.7 % [facility] Baso Absolute 0.0 0.0 - 0.1 x10(3)/[facility] Immature Gran % 0.50 % [facility] Comment: Immature granulocytes(IG's)percentage and absolute count will include metamyelocytes, myelocytes, and promyelocytes. Blood smears from CBCs yielding IG's will be scanned manually for concordance. If this scan disagrees with the automated IG or if promyelocytes are noted, a manual differential will be performed. Immature Gran Absolute 0.03 0.00 - 0.04 x10(3)/[facility] Blood 06/11/2024 10:1 0 AM EDT 06/11/2024 10:24 AM EDT Narrative Resulting Agency Comment Spec In Lab Brett Herr MD HEMATOLOGY ORDERAB LES Performing Organization Address City/[facility]/ZIP Co de Phone Number [facility] [place] [address] * Hepatitis C Antibody (06/11/2024 10:10 AM EDT) Hepatitis C Antibody Negative Negative [facility] Blood 06/11/2024 10:1 0 AM EDT 06/11/2024 10:24 AM EDT Narrative Resulting Agency Comment Spec In Lab Brett Herr MD CHEMISTRY ORDERABL ES Performing Organization Address [facility]/ZIP Co de Phone Number [facility] [place] [address] * Hepatitis B Core Antibody, Total (06/11/2024 10:10 AM EDT) Hepatitis B Core Antibody Negative Negative [facility] Blood 06/11/2024 10:1 0 AM EDT 06/11/2024 10:24 AM EDT Narrative Resulting Agency Comment Spec In Lab Brett Herr MD CHEMISTRY ORDERABL ES Performing Organization Address [facility] de Phone Number [facility] [place] [address] * HIV Screen, 4th Generation ([employer]/CGP/APD/NLH) (06/11/2024 10:10 AM EDT) HIV Ab/Ag Screen Negative Negative [facility] Comment: This 4th Generation HIV test screens for the presence of the HIV-1 p24 antigen as well as antibodies reactive against HIV-1 and HIV-2. A negative screen does not rule out an acute HIV infection. If acute HIV infection is suspected, testing should be repeated in 2 - 3 weeks or HIV nucleic acid testing performed. HIV Comment Low Risk of HIV Infection [facility] Blood 06/11/2024 10:1 0 AM EDT 06/11/2024 10:24 AM EDT Narrative Resulting Agency Comment Spec In Lab Brett Herr MD CHEMISTRY ORDERABL ES Performing Organization Address [facility] Co de Phone Number [facility] [place] [address] * Hepatitis B Surface Antibody (06/11/2024 10:10 AM EDT) Hepatitis B Surface Antibody, Quantitative <3.5 IU/L [facility] Comment: HepB Surface Ab Quant: Unvaccinated: < 8.5 IU/L Vaccinated: >= 11.5 IU/L Hepatitis B Surface Antibody Negative [facility] Comment: Patient is presumed to be not vaccinated or immune to HBV infection. Expected Results: Vaccinated: Positive Unvaccinated: Negative Blood 06/11/2024 10:1 0 AM EDT 06/11/2024 10:24 AM EDT Narrative Resulting Agency Comment Spec In Lab Brett Herr MD CHEMISTRY ORDERABL ES Performing Organization Address [facility] Co de Phone Number [facility] [place] [address] * Hepatitis B Surface Antigen (06/11/2024 10:10 AM EDT) Hepatitis B Surface Antigen Negative Negative [facility] Blood 06/11/2024 10:1 0 AM EDT 06/11/2024 10:24 AM EDT Narrative Resulting Agency Comment Spec In Lab Brett Herr MD CHEMISTRY ORDERABL ES Performing Organization Address [facility] Co de Phone Number [facility] [place] [address] * Uric acid (06/11/2024 10:10 AM EDT) Uric Acid 4.2 3.5 - 8.5 mg/dL [facility] Blood 06/11/2024 10:1 0 AM EDT 06/11/2024 10:24 AM EDT Narrative Resulting Agency Comment Spec In Lab Brett Herr MD CHEMISTRY ORDERABL ES Performing Organization Address [facility] Co de Phone Number [facility] [place] [address] * Lactate Dehydrogenase (06/11/2024 10:10 AM EDT) Lactate Dehydrogenase 193 110 - 220 unit/L [facility] Blood 06/11/2024 10:1 0 AM EDT 06/11/2024 10:24 AM EDT Narrative Resulting Agency Comment Spec In Lab Brett Herr MD CHEMISTRY ORDERABL ES Performing Organization Address [facility]/ZIP Co de Phone Number [facility] [place] [address] * Comprehensive metabolic panel (non-fasting) (06/11/2024 10:10 AM EDT) Glucose 94 65 - 199 mg/dL [facility] Comment:Diabetes: >=200 mg/d L plus symptoms Blood Urea Nitrogen 11 10 - 20 mg/dL [facility] Creatinine 0.94 0.80 - 1.50 mg/dL [facility] Sodium 140 135 - 145 mmol/L [facility] Potassium 4.1 3.5 - 5.0 mmol/L [facility] Comment: Please note: ??Patients with WBC >100,000 may have falsely elevated Potassium levels. ??For accurate Potassium quantification in these patients send serum separator tube (gold top) for subsequent determinations. ??Contact the Clinical Chemistry Laboratory if there are any questions. Chloride 104 98 - 107 mmol/L [facility] Carbon Dioxide 27 22 - 31 mmol/L [facility] Anion Gap 9 5 - 15 mmol/L [facility] Calcium 9.3 8.5 - 10.5 mg/dL [facility] Protein, Total 7.0 6.1 - 8.0 g/dL [facility] Albumin 4.4 3.2 - 5.2 g/dL [facility] Aspartate Aminotransferase 14 0 - 39 unit/L [facility] Alanine Aminotransferase 23 0 - 55 unit/L [facility] Alkaline Phosphatase 61 40 - 130 unit/L [facility] Bilirubin, Total 0.6 0.2 - 1.3 mg/dL [facility] Est Glomerular Filtration Rate 99 >=60 mL/min/1. 73 m?? [facility] Comment: This patient's estimated GFR was calculated using the 2020 CKD-EPI equation. The estimated GFR can vary from the measured GFR by up to 30% in the absence of rapidly changing kidney function. Assessment of the estimated GFR is not appropriate when creatinine concentrations are rapidly changing. For clinical situations in which a more precise estimate of GFR is necessary, consider alternative methods of GFR estimation such as a 24-hour urine creatinine clearance. Assignment of CKD stage 1-5 for patients with an eGFR near the transition point between stages may be based on clinical assessment of muscle mass and symptoms in addition to eGFR. Blood 06/11/2024 10:1 0 AM EDT 06/11/2024 10:24 AM EDT Narrative Resulting Agency Comment Spec In Lab Brett Herr MD CHEMISTRY ORDERABL ES Performing Organization Address [facility] Co de Phone Number [facility] [place] [address] * Scan Doc: Surgical Pathology (06/04/2024) Historical Provider MEDIA MGR SCAN EX T ORDR/RSLT * Film Library- Storage Only Ultrasound Study (05/19/2024 1:00 PM EDT) 05/28/2024 5:56 AM EDT Narrative [facility] - 05/28/2024 5:56 AM EDT This exam is auto-finalizing. It's purpose is for storage only. Elgin Medina IMG FILM LIBRARY ORD ERABLES Performing Organization Address [facility] de Phone Number [place], [place] * Scan Doc: Ultrasound (05/19/2024 12:00 AM EDT) Only the most recent of2 resultswithin the time period is included. Anatomical Region Laterality Modality Other Narrative 05/19/2024 12:00 AM EDT Ordered by an unspecified provider. Scanning Provider MEDIA MGR SCAN EXT O RDR/RSLT from Last 3 Months Advance Directives Documents on File Type Date Recorded Patient Outside Sales Inspector Expl anation Personal Outside Sales Inspector 08/11/2024 11:51 AM personal rep 08/11/24 * Attempt Cardiopulmonary Resuscitation - Inpatient (Latest Code Status on File) Date Activated Date Inactivated Comments 07/27/2024 6:58 AM 07/28/2024 4:35 AM Question Answer Comments Code Status decision made by: Patient Content of discussion: Full * Full Code Date Activated Date Inactivated Comments 11/20/2015 2:51 PM 11/24/2015 12:37 PM Question Answer Comments Does patient have capacity to make decision: Yes Care Teams Sustainability Analyst Relationship Specialty Start Date End Date Danie Connor DO [address] [place] [phone] PCP - General Family Medicine 06/04/24
--- OUTSIDE RECORDS SUMMARY | 2024-08-11 20:35 | XMS_ITS | Encounter Summary ---
Author Organization [facility] [place] [address] Care Team Providers Care Gas Plant Dispatcher Name Role Phone Danie Connor DO Primary Care Provider [phone] Encounter Details Date Type Department Care Team (Late st Contact Info) Description 08/04/2024 Notes Only Hematology/Oncology at [address] [phone] Ekta Womack RN Social History Tobacco Use Types Packs/Day Years [...] as of this encounter Progress Notes * Ekta Womack RN - 08/04/2024 9:22 AM EDT Clinical Research Nurse Note [place], [place] Date: 08/04/24 Documentation of Informed Consent to Participate in Clinical Trial and lab kit draw Study Number:[id number] Description:Immune profiling for cancer Immunotherapy response The study investigates how the profiles of the immune cells before and after treatment with immunotherapeutic medications used for cancer treatment might impact the response to the treatment. Patient was seen in private exam room and was offered the opportunity to participate in the study [id number] The protocol was reviewed with patient including description of study purpose, potential risks, side effects and uncertain benefits, voluntary nature of participation, and requirements of participation including the amount of blood that will be drawn, the potential future use of this sample and howprivate health information will be protected. Financial considerations were discussed per protocol.Specifically, there is no financial compensation provided for participation. Discussed confidentiality of patient's private health information as specified in consent form. Patient was informed that he/she may discontinue study involvement at any time; informed that declining to participate or discontinuing study treatment will not compromise his/her access to treatmentoptions or care at this institution. She/He was given the written consent form to read and review. Patient states he/she was given adequate time to review all information, and to ask questions and review concerns, all of which were answered to his/her satisfaction. Consent protocol form effective date: 12/30/2023 and expiration date 12/29/2024, was signed and datedby patient and this author. A copy of the signed consent form was given to patient. Original signed IC form was sent to Milton GARCIA via machine heddle cleaner and also Emailed to him. consent was obtained prior to any study procedures being conducted Patient was provided a copy of [place] research nurse business card and instructed to call clinic or provider with any questions or concerns regarding this research study. Any questions or concerns with treatment and side effects should be directed to clinic triage nurseper standard of care. A lab kit will be drawn on day 1 of each cycle., every 21 days Patient verbalized understanding of these instructions and this plan. Miscellaneous lab kit draw for study # [id number] [facility] lab kit draw after obtaining informed consent and prior to infusion today. Date: 08/04/24 Time: 0900 [ ] misc lab kit blood drawn from venipuncture performed by junior automation engineer [ ] medi port by junior automation engineer. [ x ] medi port was accessed by [facility] labs earlier today. Misc lab kit blood drawn from accessed port by harvinder Yip RN Specimens sent to : [x ] [address] floor pathology lab in cooler via machine heddle cleaner by this author [ ] Study ,via Fed ex per protocol requirements documented in this encounter Plan of Treatment Upcoming Encounters Date Type Department Care Team (Late st Contact Info) Description 08/25/2024 9:00 AM EDT Office Visit Hematology/Oncology at [address] [phone] Pia Cooper MD [facility] [place] [address] Shayla Vuong APRN [facility] [place] [address] 08/25/2024 9:30 AM EDT Scheduled View Only Hematology/Oncology at [address] [phone] Ekta Womack RN 08/25/2024 9:30 AM EDT Infusion Hematology Oncology at [address] [phone] documented as of this encounter Visit Diagnoses Not on filedocumented in this encounter Care Teams Gas Plant Dispatcher Relationship Specialty Start Date End Date Danie Connor DO [address] [place] [address] PCP - General Family Medicine 06/04/24 documented as of this encounter
--- OUTSIDE RECORDS SUMMARY | 2024-08-11 20:35 | XMS_ITS | Encounter Summary ---
Author Organization [facility] Address [address] [place] [address] Care Team Providers Care Basketball Player Name Role Phone Unknown, Provider Primary Care Provider [phone] Encounter Details Date Type Department Care Team (Late st Contact Info) Description 05/21/2024 Lab Requisition [facility] Pathology & Laboratory Medicine - [address] [address] Catracho Hernandez MD [address] [facility] Level 2 [place] [phone] Encounter for other general examination Social History [...] Procedure Name Priority Date/Time Associated Diagnosis Comments PRABHA TESTMANUEL Today 05/19/2024 13:45 EDT Encounter for other general examination documented in this encounter Results * MANUEL AREVALO (05/19/2024 13:45 EDT) Sorayaaneous Manuel Mortensen SEE NOTE 05/27/2024 7:16 EDT [facility] Comment: Test ?Result ?Flag ??Unit ??RefValue B-cell Lymphoma, FISH, Tissue ??Result Summary ?Negative ?Interpretation ?SEE NOTE ?No MYC rearrangement and no fusion of MYC and IGH was ?observed, therefore this makes unlikely the possibility of ?high-grade B-cell lymphoma with MYC and BCL2 and/or BCL6 ?rearrangements (double-hit lymphoma; Eddie et al., WHO ?Classification of Tumours of Haematopoietic and Lymphoid ?Tissues, IARC Press:Mp, 2017). ?Clinical and pathologic correlation is recommended. ?FISH studies interpreted in consultation with Lxeii Castillo ?Danielle Gardner, Ph.D. ??Result Table ?SEE NOTE ? Abnormality Name ? Result ?Abn% ??Cutoff% ? 8q24.1(MYC sep) ?Normal ?<25.0 ? t(8;14) MYC/IGH fusion ? Normal ?<15.0 ?Result ?Interphase FISH is normal for all loci studied. ??Reason for Referral ? DLBCL ?Specimen ?Tissue, Paraffin, Formalin ??Source ?Right cervical mass ??Tissue ID ? [id number] ?Method ?SEE NOTE ?Locus and probes ?[Strategy;#Nuclei;Vendor] ?8CEN(D8Z2),8q24.1(MYC),14q32(IGH) ?[DFISH;100;AM] ?8q24.1(5'MYC,3'MYC) ?[BAP;100;AM] ?Probe strategies include: ?DFISH=dual color, double fusion; ?BAP=break-apart probe. ?Scoring Method: Manual ?Probe vendors include: ?AM = [employer] ([place], [place]) ??Additional Information ?SEE NOTE ?A portion of the testing process was performed at [place] [facility] site [id number]. ??Disclaimer ?SEE NOTE ?This test was developed and its performance characteristics ?determined by [facility] in a manner consistent with CLIA ?requirements. [...] or molecular ?abnormalities. ??Released By ? Yuli Gallardo M.D. ?Test Performed by: ?[facility] ?[address] [place] [address] ?Cartridge Belt Puncher: Roberto Key Ph.D.; CLIA# [id number] Tissue TISSUE SPECIMEN / Unknown 05/19/2024 13:45 EDT 05/21/2024 15:24 EDT Catracho Finnegan MD CHEMISTRY & BLOOD GA S ORDERABLES Performing Organization Address City/State/[facility] Co de Phone Number [facility] [address] [place] [address] documented in this encounter Visit Diagnoses Diagnosis Encounter for other general examination documented in this encounter Care Teams Basketball Player Relationship Specialty Start Date End Date Unknown, Provider, PCP - General 09/11/15 documented as of this encounter
--- OUTSIDE RECORDS SUMMARY | 2024-08-11 20:35 | XMS_ITS | Encounter Summary ---
Author Organization [facility] [place] [address] Care Team Providers Care Upholstery Restorer Name Role Phone Danie Connor DO Primary Care Provider [phone] Encounter Details Date Type Department Care Team (Late st Contact Info) Description 08/09/2024 Telephone Hematology Oncology Level 1 [place] [phone] Xena Cheek MD [facility] DR HEMATOLOGY/[place] [address] Social History Tobacco Use Types Packs/Day Years [...] as of this encounter Progress Notes * Xena Cheek MD - 08/09/2024 10:23 PM EDT Brett called in to ask if he can cut pills in half. Reviewed his current meds, he can cut pills. He then asked me if he can just have half of the tablets, I explained that it is important to know he can not dose-reduced the current pills (bactrim, allopurinol, acyclovir, and prednisone (I explained this is part of the chemo regimen for lymphoma)). Pt verbalized understanding. Of note, Brett expressed that the Galo-R-CHP was quite harsh on his body and asked me how long he would have left if he quit the treatment completely. I discussed with him that DLBCL is aggressive type of lymphoma, with treatment, 5- year survival is >80%. Intent of tx is curative. Survival Without treatment varies, but LN would grow and may compress airways, organ perforations, rapid tumor breakdown can cause organ failure ( TLS leading to KHLOE) and other complications such as LICENSED LAND SURVEYOR involvement. Counseling on first cycle is typically hard, and body will adjust, particularly he is young and healthy prior to this diagnosis. I encouraged the patient and provided emotional support. Brett said he understands and he appreciates the counseling. Xena Cheek MD Hematology/ Medical Oncology Fellow [facility] Page #[phone] documented in this encounter Plan of Treatment Upcoming Encounters Date Type Department Care Team (Late st Contact Info) Description 08/25/2024 9:00 AM EDT Office Visit Hematology/Oncology at [address] [phone] Pia Cooper MD [facility] DR HEMATOLOGY [place] [address] Shayla Vuong APRN [facility] HEMATOLOGY [place] [address] 08/25/2024 9:30 AM EDT Scheduled View Only Hematology/Oncology at [address] [phone] Ekta Womack RN 08/25/2024 9:30 AM EDT Infusion Hematology Oncology at [address] [phone] documented as of this encounter Visit Diagnoses Not on filedocumented in this encounter Care Teams Upholstery Restorer Relationship Specialty Start Date End Date Danie Connor DO [address] [place] [phone] PCP - General Family Medicine 06/04/24 documented as of this encounter
--- OUTSIDE RECORDS SUMMARY | 2024-08-11 20:35 | XMS_ITS | Referral Summary ---
Author Organization [facility] Address [address] [place] [address] Care Team Providers Care Compliance Manager Name Role Phone Unknown, Provider Primary Care Provider Encounters Date Type Department Care Team Description 05/21/2024 Lab Requisition [facility] Pathology & Laboratory [address] [address] Catracho Hernandez MD Encounter for other general examination 05/19/2024 Lab Requisition [facility] Pathology & Laboratory [address] [address] Moisés Chery Encounter for other general examination 05/19/2024 Lab Requisition [facility] Pathology & Laboratory [address] [address] Moisés Chery MD Encounter for other general examination 05/19/2024 Lab Requisition [facility] Pathology & Laboratory [address] [address] Dwain Leroy MD Encounter for other general examination from Last 3 Months Social History Tobacco Use Types Packs/Day Years Used Date Smoking Tobacco: Never Assessed Sex and Gender Information Value Date Recorded Sex Assigned at Not on file Gender Identity Not on file Sexual Orientation Not on file Plan of Treatment Not on file Procedures Procedure Name Priority Date/Time Associated Diagnosis Comments LEUKEMIA/LYMPHOMA PANEL BY FLOW CYTOMETRY Today 05/19/2024 17:26 EDT Encounter for other general examination SURGICAL PATHOLOGY Today 05/19/2024 13 :45 EDT Encounter for other general examination NON EXCEL SPECIALIST/FNA CYTOLOGY Today 05/19/2024 13:45 EDT Encounter for other general examination MISCELLANEOUS TEST, SOLIMAN Today 05/19/2024 13:45 EDT Encounter for other general examination from Last 3 Months Results * LEUKEMIA/LYMPHOMA PANEL BY FLOW CYTOMETRY (05/19/2024 17:26 EDT) Final Immunophenotypic Interpretation Right cervical mass, flow cytometric analysis: - An aberrant [id number] B-cell population is identified. 14:30 [facility] Attestation By the signature below, the attending physician certifies that they have 1) personally conducted a gross and/or microscopic examination of the described specimen(s), and/or personally interpreted the results of laboratory testing of the described specimen(s), and 2) personally rendered or confirmed the above diagnosis. 14:30 [facility] Amendment electronically signed by Catracho Hernandez MD on 05/20/2024 at 1430 at 1422 Clinical History 48 yo male with neck mass 14:30 [facility] Description Gating is performed [...] 94% of total analyzed cells. An aberrant Acequia light chain-restricted B-cell population is identified (33% of total lymphocytes), expressing CD10, CD19 and CD20 with a high side scatter; while negative for CD5 and Lambda light chain expression. 14:30 [facility] Flow Markers CD10, CD19, CD20, CD3, CD4, CD45, CD5, CD8, Acequia, and Lambda. 4 14:30 EDT [facility] FDA Disclaimer This test was developed and its performance characteristics determined by the Department of Pathology and Laboratory Medicine, [facility], [place], [place]. It has not been cleared or [...] high complexity clinical laboratory testing. 4 14:30 EDT [facility] Scanned Images 4 14:30 T [facility] ZZUJudsonK SOFT TISSUE MASS / Unknown 05/19/2024 17:26 EDT 05/20/2024 7:24 EDT Moisés Chery MD PATHOLOGY ORDERABLES [facility] [address] [place] [address] * NON EXCEL SPECIALIST/FNA CYTOLOGY (05/19/2024 13:45 EDT) Note to Patient The following pathology results have been interpreted by your pathologist and may be available to you before your health provider has had the opportunity to review them. Please allow time for your provider to receive these results and explore management options, if applicable. 05/24/2024 16:45 EDT [facility] Final Diagnosis A. NECK MASS (3 CM), RIGHT, IMMEDIATELY ADJACENT TO SUBMANDIBULAR GLAND, ULTRASOUND-GUIDED FINE NEEDLE ASPIRATION: - Atypical lymphocytes present. See comment. 05/24/2024 16:45 EDT [facility] Diagnosis Comment Please refer to the concurrent flow cytometry and surgical pathology specimens for further characterization ([id number], [id number]). The technical component of the specimen processing was performed at the [facility] Pathology Department, [address] [place] [address] (CLIA [id number]). The professional component of the specimen evaluation (slide review and issuing of the final diagnosis) was performed at [facility], [address] [place] [address] (CLIA License Number [id number]). 05/24/2024 16:45 [facility] Attestation By the signature below, the attending physician certifies that they have personally conducted a gross and/or microscopic examination of the described specimens and rendered or confirmed the above diagnosis. 05/24/2024 16:45 T [facility] at 1645 Rapid Diagnosis A.NECK MASS,3 CM,RIGHT,IMMEDIATE LY ADJACENT TO SUBMANDIBULAR GLAND,ULTRASOUND GUIDED FINE NEEDLE ASPIRATION: Evaluation Episode 1: Pass 1: Mostly dispersed population of small blue cells,probably background lymphoglandular bodies. Recommend cores for surgical pathology and flow cytometry. The above rapid on site evaluation was performed by pathologist Dr. Francis Rhodes at [facility], [address] [place] [address]. 05/19/2024; 1345 05/24/2024 16:45 EDT [facility] Clinical History 3cm mass immediately adjacent to but separate from left submandibular gland 05/24/2024 16:45 EDT [facility] Gross Description A. 1 fixed prepared slides, 2 air dried prepared slides, and 1 tube of CytoLyt were received and processed by selective cellular enhancement technique. 05/24/2024 16:45 EDT [facility] Performing Lab [facility] 16:45 EDT [facility] Scanned Images 05/24/2024 16:45 EDT [facility] ZZUNK SOFT TISSUE / Unknown 05/19/2024 13:45 EDT 05/20/2024 6:19 EDT Dwain Leroy MD PATHOLOGY ORDERABLES [facility] [address] [place] [address] * SURGICAL PATHOLOGY (05/19/2024 13:45 EDT) Note to Patient The following pathology results have been interpreted by your pathologist and may be available to you before your health provider has had the opportunity to review them. Please allow time for your provider to receive these results and explore management options, if applicable. 05/27/2024 11:41 [facility] Final Diagnosis A. MASS, ADJACENT TO RIGHT SUBMANDIBULAR GLAND, CORE BIOPSY: - Large B-cell lymphoma. See comment. 05/27/2024 11:41 [facility] Diagnosis Comment Histologic sections demonstrate [...] highlights background T-cells. Concurrent flow cytometric analysis ([id number]) shows a CD10 positive, kappa-restricted B-cell population that by light scatter criteria, are large in size. FISH for MYC rearrangements were performed (send out to [facility]) and showed no MYC rearrangement and no [...] of tissue for flow cytometry, is recommended. Rn Sane slides of this case were reviewed at the intradepartmental consultation conference. 05/27/2024 11:41 [facility] Attestation By the signature below, the attending physician certifies that they have 1) personally conducted a gross and/or microscopic examination of the described specimen(s), and/or personally interpreted the results of laboratory testing of the described specimen(s), and 2) personally rendered or confirmed the above diagnosis. 05/27/2024 11:41 [facility] at 1141 Preliminary result electronically signed by Millicent Chris MD on 05/25/2024 at 1533 Ancillary Studies Immunoperoxidase stains were performed on this case to further characterize the lesion. ANTIBODY(CLONE) (BLOCK):RESULT CD3 (SP7, [employer]) (A1): SEE ABOVE DISCUSSION CD20 (L26, [place]) (A1): BCL-6 (G/191E/A8, [place]) (A1): BCL-2 Oncoprotein (124, [place]) (A1): Myc (Y69, [employer]) (A1): CD30 (Dilip-H2, [place]) (A1): Ki67 (MIB-1) (K2, [employer]) (A1): CD21 (2G9, [employer]) (A1): CD23 (SP23, [place]) (A1): DASHA PURA (MCD0572-V, [employer]) (A1): NOTE: One or more of [...] performance characteristics have been determined by [facility] and/or by the referring laboratory. The [...] high complexity clinical laboratory testing. 05/27/2024 11:41 [facility] Clinical History 3 cm mass immediately adjacent to but separate from R submandibular gland 05/27/2024 11:41 [facility] Gross Description A. Received [...] Yuli Gallardo 05/20/2024 9:35 05/27/2024 11:41 EDT [facility] Performing Lab [facility] 05/27/2024 11:41 EDT [facility] Scanned Images 05/27/2024 11:41 EDT [facility] Tissue SOFT TISSUE / Unknown 05/19/2024 13:45 EDT 05/20/2024 7:17 EDT Moisés Chery PATHOLOGY ORDERABLES Performing Organization Address [facility]/State/ZIP Co de Phone Number [facility] [address] [place] [address] * MISCELLANEOUS TEST, SOLIMAN (05/19/2024 13:45 EDT) Miscellaneous Test, [facility] SEE NOTE 05/27/2024 7:16 EDT [facility] Comment: Test ?Result ?Flag ??Unit ??RefValue [...] ??Source ?Right cervical mass ??Tissue ID ? [id number] ?Method ?SEE NOTE ?Locus and probes ?[Strategy;#Nuclei;Vendor] ?8CEN(D8Z2),8q24.1(MYC),14q32(IGH) ?[DFISH;100;AM] ?8q24.1(5'MYC,3'MYC) ?[BAP;100;AM] ?Probe strategies include: ?DFISH=dual color, double fusion; ?BAP=break-apart probe. ?Scoring Method: Manual ?Probe vendors include: ?AM = [employer] ([place], [place]) ??Additional Information ?SEE NOTE ?A portion of the testing process was performed at [facility] site [id number]. ??Disclaimer ?SEE NOTE ?This test was developed and its performance characteristics ?determined by [facility] in a manner consistent with CLIA ?requirements. [...] ? Yuli Gallardo M.D. ?Test Performed by: ?[facility] ?[address] [id number] ?Excel Vba Developer: Roberto Key Ph.D.; CLIA# [id number] Tissue TISSUE SPECIMEN / Unknown 05/19/2024 13:45 EDT 05/21/2024 15:24 EDT Catracho Finnegan MD CHEMISTRY & BLOOD GA S ORDERABLES [facility] [address] [place] [address] from Last 3 Months Care Teams Compliance Manager Relationship Specialty Start Date End Date Unknown, Provider, PCP - General 09/11/15
--- OUTSIDE RECORDS SUMMARY | 2024-08-11 20:35 | XMS_ITS | Encounter Summary ---
Author Organization [facility] [place] [address] Care Team Providers Care Gaming Cashier Name Role Phone Danie Connor DO Primary Care Provider [phone] Encounter Details Date Type Department Care Team (Late st Contact Info) Description 08/05/2024 Notes Only Hematology/Oncology at [address] [phone] Aurea Galindo MSW OFFICE OF CARE MANAGEMENT [...] as of this encounter Progress Notes * Aurea Galindo MSW - 08/05/2024 10:13 AM EDT Follow up with Brett and his sister during his second day of infusions. He indicated he tolerated yesterday and slept well last night. His sister indicated Brett's S/O had to work so unable to come today. His sister indicated Brett has 4 sister's total and they all leave nearby. This sister has the most flexibility with her time so she is the primary support right now. Brett did not identify any new needs today. Offered support. Will continue to follow for support and resources. Brief assessment Supportive Counseling documented in this encounter Plan of Treatment Upcoming Encounters Date Type Department Care Team (Late st Contact Info) Description 08/25/2024 9:00 AM EDT Office Visit Hematology/Oncology at [address] [phone] Pia Cooper MD [facility] DR HEMATOLOGY [place] [address] Shayla Vuong APRN [facility] [place] [address] 08/25/2024 9:30 AM EDT Scheduled View Only Hematology/Oncology at [address] [phone] Ekta Womack RN 08/25/2024 9:30 AM EDT Infusion Hematology Oncology at [address] [phone] documented as of this encounter Visit Diagnoses Not on filedocumented in this encounter Care Teams Gaming Cashier Relationship Specialty Start Date End Date Danie Connor DO [address] [place] [phone] PCP - General Family Medicine 06/04/24 documented as of this encounter
--- OUTSIDE RECORDS SUMMARY | 2024-08-11 20:35 | XMS_ITS | Encounter Summary ---
Author Organization [facility] [place] [address] Care Team Providers Care Funeral Home Director Name Role Phone Geeta Danie Bustos Primary Care Provider [phone] Reason for Visit * Reason Comments Follow-up Encounter Details Date Type Department Care Team (Late st Contact Info) Description 08/11/2024 12:00 PM EDT Office Visit Hematology/Oncology at [address] [phone] Shayla Vuong APRN [facility] [address] [place] [address] Arrived Social History Tobacco Use Types Packs/Day Years [...] Mass Index 30.69 08/11/2024 11:46 AM EDT documented in this encounter Plan of Treatment Upcoming Encounters Date Type Department Care Team (Late st Contact Info) Description 08/25/2024 9:00 AM EDT Office Visit Hematology/Oncology at [address] [phone] Pia Cooper MD [facility] [address] [place] [address] Shayla Vuong APRN [facility] [place] [address] 08/25/2024 9:30 AM EDT Scheduled View Only Hematology/Oncology at [address] [phone] Ekta Womack RN 08/25/2024 9:30 AM EDT Infusion Hematology Oncology at [address] [phone] documented as of this encounter Procedures Procedure Name Priority Date/Time Associated Diagnosis Comments EXTERNAL HEMATOLOGY LAB RESULTS Routine 08/11/2024 EXTERNAL CHEMISTRY LAB RESULTS Routine 08/11/2024 documented in this encounter Results * External Hematology Lab Results (08/11/2024) WBC - External 0.60 Hemoglobin - External 12.2 Hematocrit - External 35.3 Platelets - External 160 Neutr ABS (ANC) - External 0.03 08/11/2024 Historical Provider MD PEDRO JEFFRIES * External Chemistry Lab Results (08/11/2024) Creatinine - External 1 Potassium - External 3.6 AST (SGOT) - External 23 ALT (SGPT) - External 23 Total Bilirubin - External 1.16 LDH - External 189 08/11/2024 Historical Provider MD PEDRO JEFFRIES documented in this encounter Visit Diagnoses Not on filedocumented in this encounter Care Teams Funeral Home Director Relationship Specialty Start Date End Date Danie Connor DO [address] [place] [phone] PCP - General Family Medicine 06/04/24 documented as of this encounter
--- OUTSIDE RECORDS SUMMARY | 2024-08-11 20:35 | XMS_ITS | Continuity of Care Document ---
Author Organization [facility] Address [address] [place] [address] Care Team Providers Care Can Sterilizer Name Role Phone Geeta [facility] [id number] Date(s): 05/19/24 - 05/19/24 [facility] [address] [place] [address] Encounter Diagnosis Neck swelling(Discharge Diagnosis) - 05/19/24 Discharge Disposition: Home or Self Care Attending Physician: Moisés Chery MD Admitting Physician: Moisés Chery MD Referring Physician: Moisés Chery MD Allergies, Adverse Reactions, Alerts No Known Medication Allergies Assessment and Plan Diagnostic Tests Pending * Surgical Pathology UV 05/19/24 * Leukemia/Lymphoma Panel by Flow Cyto UV 05/19/24 * Non CRITICAL SYSTEMS TECHNICIAN/FNA Cytology UV 05/19/24 Future Scheduled Tests Radiology* MRI Knee w/o Contrast Right 04/21/24 Immunizations [...] Member Role: Primary Care Physician Address: Address: [place] Primary [address] [address]- Care Team Related Persons Name: MELISSA MCKEON Address: [facility] [address] [facility] [id number] Address: Home [address] [id number] Name: LOBITO ARREDONDO Address: Home [address] [facility] [id number]
--- OUTSIDE RECORDS SUMMARY | 2024-08-11 20:35 | XMS_ITS | Encounter Summary ---
Author Organization [facility] [place] [address] Care Team Providers Care Registered Medical Transcriptionist Name Role Phone ConnorDanie willis Primary Care Provider [phone] Encounter Details Date Type Department Care Team (Latest Contact Info) Description 08/04/2024 Travel Social History Tobacco Use Types Packs/Day [...] 9:00 AM EDT Office Visit Hematology/Oncology at [address] [phone] Pia Cooper MD [facility] DR [place] [address] Shayla Vuong APRN [facility] HEMATOLOGY [place] [address] 08/25/2024 9:30 AM EDT Scheduled View Only Hematology/Oncology at [address] [phone] Ekta Womack RN 08/25/2024 9:30 AM EDT Infusion Hematology Oncology at [address] [phone] documented as of this encounter Visit Diagnoses Not on filedocumented in this encounter Care Teams Registered Medical Transcriptionist Relationship Specialty Start Date End Date Danie Connor DO [address] [place] [address] PCP - General Family Medicine 06/04/24 documented as of this encounter
--- OUTSIDE RECORDS SUMMARY | 2024-08-11 20:36 | XMS_ITS | Encounter Summary ---
Author Organization [facility] [place] [address] Care Team Providers Care Sales And Retail Management Recruiter Name Role Phone ConnorDanie willis Primary Care Provider [phone] Encounter Details Date Type Department Care Team (Latest Contact Info) Description 07/23/2024 Travel Social History Tobacco Use Types Packs/Day [...] 9:00 AM EDT Office Visit Hematology/Oncology at [address] [phone] Pia Cooper MD [facility] DR [place] [address] Shayla Vuong APRN [facility] [place] [address] 08/25/2024 9:30 AM EDT Scheduled View Only Hematology/Oncology at [address] [phone] Ekta Womack RN 08/25/2024 9:30 AM EDT Infusion Hematology Oncology at [address] [phone] documented as of this encounter Visit Diagnoses Not on filedocumented in this encounter Care Teams Sales And Retail Management Recruiter Relationship Specialty Start Date End Date Danie Connor DO [address] [place] [address] PCP - General Family Medicine 06/04/24 documented as of this encounter
--- OUTSIDE RECORDS SUMMARY | 2024-08-11 20:36 | XMS_ITS | Encounter Summary ---
[place] [address] Care Team Providers Care Supervisor Sulfuric Acid Plant Name Role Phone Danie Connor DO Primary Care Provider [phone] Reason for Referral * Diagnostic Test (Routine) - Closed Specialty Diagnoses / Procedures Referred By Contac t Referred To Contact Cardiology Diagnoses Encounter for echocardiogram before initiation of chemotherapy Lymphoma, unspecified body region, unspecified lymphoma type Procedures Echocardiogram Transthoracic Adriana Wilkins APRN [facility] DR HEMATOLOGY [place] [address] [facility] [place] [address] Referral ID Status Reason Start Date Expiration Date V isits Requested Visits Authorized [id number] Closed Specialty Service Requested 06/11/2024 08/09/2024 1 1 Reason for Visit * Diagnostic Test (Routine) - Closed Specialty Diagnoses / Procedures Referred By Contac t Referred To Contact Cardiology Diagnoses Encounter for echocardiogram before initiation of chemotherapy Lymphoma, unspecified body region, unspecified lymphoma type Procedures Echocardiogram Transthoracic Adriana Wilkins APRN [facility] DR HEMATOLOGY [place] [address] [facility] [place] [address] Referral ID Status Reason Start Date Expiration Date V isits Requested Visits Authorized [id number] Closed Specialty Service Requested 06/11/2024 08/09/2024 1 1 Encounter Details Date Type Department Care Team (Latest Contact Info) Description 06/24/2024 9:17 AM EDT - 06/24/2024 11:59 PM EDT Hospital Encounter Non-[place] [address] Adriana Wilkins [employer] [facility] HEMATOLOGY [place] [address] Encounter for echocardiogram before initiation of chemotherapy; Lymphoma, unspecified body region, unspecified lymphoma type Discharge Disposition: Home Social History Tobacco Use Types Packs/Day Years Used Date Smoking Tobacco: Never Smokeless Tobacco: Never Alcohol Use Standard Drinks/Week Comments No 0 (1 standard drink = 0.6 oz pur e alcohol) Sex and Gender Information Value Date Recorded Sex Assigned at Not on file Gender Identity Not on file Sexual Orientation Not on file documented as of this encounter Medications at Time of Discharge Medication Sig Dispensed Refills Start Date End Date Vimpat 200 mg TabletIndications:Refract ory epilepsy Take 1/2 (one-half) tablet by mouth twice daily 60 tablet 3 08/24/2021 lamoTRIgine (LaMICtal) 200 mg TabletIndications:Refract ory epilepsy Take 1 tablet by mouth 2 times daily. 60 tablet 5 02/21/2021 documented as of this encounter Plan of Treatment Upcoming Encounters Date Type Department Care Team (Late st Contact Info) Description 08/25/2024 9:00 AM EDT Office Visit Hematology/Oncology at [address] [phone] Pia Cooper MD [facility] HEMATOLOGY [place] [address] Adriana Wilkins APRN [facility] HEMATOLOGY [place] [address] 08/25/2024 9:30 AM EDT Scheduled View Only Hematology/Oncology at [address] [phone] Ekta Womack RN 08/25/2024 9:30 AM EDT Infusion Hematology Oncology at [address] [phone] documented as of this encounter Procedures Procedure Name Priority Date/Time Associated Diagnosis Comments ECHO COMPLETE Routine 06/24/2024 10:58 AM EDT Encounter for echocardiogram before initiation of chemotherapy Lymphoma, unspecified body region, unspecified lymphoma type documented in this encounter Results * ECHO COMPLETE (06/24/2024 10:58 AM EDT) Anatomical Region Laterality Modality Cardiac Other 06/24/2024 10:1 5 AM EDT Narrative 06/24/2024 11:10 AM EDT [address] [place] [address] ? Echocardiogram Report Name: MO CAMPOS Saroj ? Study Date: 06/24/2024 10:15 AMBP: 130/86 mmHg ? Patient Location: 4A : 1975 ? Height: 173 cm ? Account: [id number] Age: 48 yrs ? Weight: 90 kg Gender: Male ?BSA: 2.0 m2 Ordering Physician: ADRIANA WILKINS Referring Physician: ADRIANA WILKINS Performed By: Clotilde Kaur RDCS Reason For Study: Encounter for echocardiogram before initiation of chemotherapy, Lymphoma Exam Location: [facility]. Interpretation Summary -Left ventricular systolic function is [...] findings. No comparison study is available. Procedure Complete-[id number]. Left ventricular strain. Satisfactory quality. Left Ventricle [...] Note Júnior Higgins MD - 06/24/2024 [address] [place] [address] Echocardiogram Report Name: CAMPOSMO OVIEDO Saroj Study Date: 0:15 AMBP: 130/86 mmHg Patient Location: : 1975 Height: 173 cm Account: [id number] Age: 48 yrs Weight: 90 kg Gender: Male BSA: 2.0 m2 Ordering Physician: ADRIANA WILKINS Referring Physician: ADRIANA WILKINS Performed By: Clotilde Kaur RDCS Reason For Study: Encounter for echocardiogram before initiation ofchemotherapy, Lymphoma Exam Location: [facility]. Interpretation Summary -Left ventricular systolic function is [...] findings. No comparison study is available. Procedure Complete-[id number]. Left ventricular strain. Satisfactory quality. Left Ventricle [...] max chuckie: 182.3 cm/sec RVSP(TR): 16.3 mmHg Adriana Wilkins APRN ECHO ORDERABLES documented in this encounter Visit Diagnoses Diagnosis Encounter for echocardiogram before initiation of chemotherapy Lymphoma, unspecified body region, unspecified lymphoma type documented in this encounter Care Teams Supervisor Sulfuric Acid Plant Relationship Specialty Start Date End Date Danie Connor DO [address] [place] [phone] PCP - General Family Medicine 06/04/24 documented as of this encounter
--- OUTSIDE RECORDS SUMMARY | 2024-08-11 20:36 | XMS_ITS | Encounter Summary ---
[place] [address] Care Team Providers Care Gear Cutting Machine Set Up Operator Name Role Phone Unknown Primary Care Provider Unavailabl e Reason for Referral * Consultation (Routine) - Authorized Specialty Diagnoses / Procedures Referred By Kymberly penaloza Referred To Contact Hematology and Oncology Diagnoses Localized swelling, mass and lump, neck Unspecified B-cell lymphoma, unspecified site Moisés Chery MD [address] [place] [address] [facility] [address] [place] [address] Referral ID Status Reason Start Date Expiration Date Visits Requested Visits Authorized [id number] Authorized Consult, Test & Treat PCP Updated and/or Approved 05/27/2024 05/27/2025 6 6 Encounter Details Date Type Department Care Team (Latest Contact Info) Description 05/27/2024 Transcribe Orders eDH Incoming Referrals [phone] Moisés Chery MD [address] [place] [address] Localized swelling, mass and lump, neck Social History Tobacco Use Types Packs/Day Years [...] 9:00 AM EDT Office Visit Hematology/Oncology at [address] [phone] Pia Cooper MD [facility] HEMATOLOGY [place] [address] Shayla Vuong, CLEMENTE [facility] HEMATOLOGY [place] [address] 08/25/2024 9:30 AM EDT Scheduled View Only Hematology/Oncology at [address] [phone] Ekta Womack RN 08/25/2024 9:30 AM EDT Infusion Hematology Oncology at [address] [phone] Scheduled Referrals Name Type Priority Associated Diagnoses Order Schedule Referral to Hematology and Oncology Outpatient Referral Routine Localized swelling, mass and lump, neck Ordered: 05/27/2024 documented as of this encounter Visit Diagnoses Diagnosis Localized swelling, mass and lump, neck Swelling, mass, or lump in head and neck documented in this encounter Care Teams Gear Cutting Machine Set Up Operator Relationship Specialty Start Date End Date Unknown None PCP - General 09/30/23 06/03/24 documented as of this encounter
--- OUTSIDE RECORDS SUMMARY | 2024-08-11 20:36 | XMS_ITS | Encounter Summary ---
Author Organization [facility] [place] [address] Care Team Providers Care Buffing Wheel Raker Name Role Phone Jose Manuel Kimble MD Primary Care Provider [phone] Reason for Visit * Reason Comments Medication Refill Encounter Details Date Type Department Care Team ([facility] Contact Info) Description 08/23/2021 [place] [address] Heydi Sanchez MD [facility] [place] [address] Refractory epilepsy Social History Tobacco Use Types Packs/Day Years [...] Upcoming Encounters Date Type Department Care Team ([facility] Contact Info) Description 08/25/2024 9:00 AM EDT Office Visit Hematology/Oncology at [address] [phone] Pia Cooper MD [facility] DR HEMATOLOGY [place] [address] Shayla Vuong, SNACK FOODS MIXER OPERATOR [facility] HEMATOLOGY [place] [address] 08/25/2024 9:30 AM EDT Scheduled View Only Hematology/Oncology at [address] [phone] Ekta Womack RN 08/25/2024 9:30 AM EDT Infusion Hematology Oncology at [address] [phone] documented as of this encounter Visit Diagnoses Diagnosis 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
--- OUTSIDE RECORDS SUMMARY | 2024-08-11 20:36 | XMS_ITS | Encounter Summary ---
Author Organization [facility] [place] [address] Care Team Providers Care Hand Or Machine Paster Name Role Phone Jose Manuel Kimlbe MD Primary Care Provider [phone] Reason for Visit * Reason Onset Date Comments Medication Problem 11/17/2020 Encounter Details Date Type Department Care Team (Late st Contact Info) Description 11/17/2020 [place] [phone] Kwabena Garcia MD [facility] [place] [address] Medication Problem Social History Tobacco Use Types Packs/Day Years [...] encounter Miscellaneous Notes * Telephone Encounter - Smita Salmon Alex - 11/17/2020 2:42 PM EST Call Center / [place] Message - Medication Issue (Not to be used for refill request or medication prior auth request) Provider patient sees in Clinic: KATERYNA Caller and relationship (if other than patient-full name): pt Call Back Number: [phone] Ok to leave a message: y Reason for call: Medication Issue Message/information for the nurse: Sent to incorrect pharmacy Name of Medication: lamoTRIgine (LaMICtal) 200 mg Tablet Issue with the medication: This medication was sent to the incorrect pharmacy. It is supposed to besent to [place]. [place] And would like to know if this can be an automatic refill? Disposition of Call: ?? Routine Message sent to the Nurse x documented in this encounter Plan of Treatment Upcoming Encounters Date Type Department Care Team (Late st Contact Info) Description 08/25/2024 9:00 AM EDT Office Visit Hematology/Oncology at [address] [phone] Pia Cooper MD [facility] DR [place] [address] Shayla Vuong APRN [facility] [address] [place] [address] 08/25/2024 9:30 AM EDT Scheduled View Only Hematology/Oncology at [address] [phone] Ekta Womack RN 08/25/2024 9:30 AM EDT Infusion Hematology Oncology at [address] [phone] documented as of this encounter Visit Diagnoses Not on filedocumented in this encounter Care Teams Hand Or Machine Paster Relationship Specialty Start Date End Date Jose Manuel Kimble MD PCP - General Family Medicine 09/20/15 09/29/23 documented as of this encounter
--- OUTSIDE RECORDS SUMMARY | 2024-08-11 20:36 | XMS_ITS | Encounter Summary ---
Author Organization [facility] [place] [address] Care Team Providers Care Forensic Locksmith Name Role Phone ConnorDanie willis Primary Care Provider [phone] Encounter Details Date Type Department Care Team (Late Contact Info) Description 07/08/2024 Orders Only [place]ology [place] [address] Shayla Vuong APRN [facility] DR HEMATOLOGY [place] [address] Social History Tobacco Use Types Packs/Day Years Used Date Smoking Tobacco: Never Smokeless Tobacco: Never Alcohol Use Standard Drinks/Week Comments No 0 (1 standard drink = 0.6 oz pur e alcohol) [facility] Inpatient Questions Answer Date Recorded Prevent Contact [...] 9:00 AM EDT Office Visit Hematology/Oncology at [address] [phone] Pia Cooper MD [facility] DR HEMATOLOGY [place] [address] Shayla Vuong APRN [facility] DR HEMATOLOGY [place] [address] 08/25/2024 9:30 AM EDT Scheduled View Only Hematology/Oncology at [address] [phone] Ekta Womack RN 08/25/2024 9:30 AM EDT Infusion Hematology Oncology at [address] [phone] documented as of this encounter Visit Diagnoses Not on filedocumented in this encounter Care Teams Forensic Locksmith Relationship Specialty Start Date End Date Danie Connor DO [address] [place] [phone] PCP - General Family Medicine 06/04/24 documented as of this encounter
--- OUTSIDE RECORDS SUMMARY | 2024-08-11 20:36 | XMS_ITS | Encounter Summary ---
Author Organization [facility] [place] [address] Care Team Providers Care Corporation Officer Name Role Phone Geeta Danie Bustos Primary Care Provider [phone] Encounter Details Date Type Department Care Team (Late Contact Info) Description 06/04/2024 External [place] [phone] Provider, Scanning Social History Tobacco Use Types Packs/Day Years [...] AM EDT Office Visit Hematology/Oncology at [address] [phone] Pia Cooper MD [facility] [place] [address] Shayla Vuong APRN [facility] [place] [address] 08/25/2024 9:30 AM EDT Scheduled View Only Hematology/Oncology at [address] [phone] Ekta Womack RN 08/25/2024 9:30 AM EDT Infusion Hematology Oncology at [address] [phone] documented as of this encounter Procedures Procedure Name Priority Date/Time Associated Diagnosis Comments SURGICAL PATHOLOGY SCAN Routine 06/04/2024 documented in this encounter Results * Scan Doc: Surgical Pathology (06/04/2024) Historical Provider MD [facility] MGR SCAN EX T ORDR/RSLT documented in this encounter Visit Diagnoses Not on filedocumented in this encounter Care Teams Corporation Officer Relationship Specialty Start Date End Date Danie Connor DO [address] [place] [phone] PCP - General Family Medicine 06/04/24 documented as of this encounter
--- OUTSIDE RECORDS SUMMARY | 2024-08-11 20:36 | XMS_ITS | Encounter Summary ---
[place] [address] Care Team Providers Care Mediation Commissioner Name Role Phone Jose Manuel Kimble MD Primary Care Provider [phone] Encounter Details Date Type Department Care Team (Late st Contact Info) Description 02/21/2021 9:00 AM EDT Office [place] [address] Heydi Sanchez MD [facility] [address] [place] [address] Refractory epilepsy; Memory loss; Abnormal urination; Other fatigue Social History Tobacco Use Types Packs/Day Years [...] Sign Reading Time Taken Comments Blood Pressure 146/85 02/21/2021 9:16 AM EDT Pulse 80 02/21/2021 9:16 AM EDT Temperature - - Respiratory Rate - - Oxygen Saturation 98% 02/21/2021 9:16 AM EDT Inhaled Oxygen Concentration - - Weight 91.2 kg (201 lb) 02/21/2021 9:16 AM EDT r eported Height - - Body Mass Index 31.48 08/17/2020 10:14 AM EDT documented in this encounter Progress Notes * Heydi Sanchez MD - 02/21/2021 9:00 AM EDT [facility] [place] [address] Re - Brett Campos 1975 PCP - Jose Manuel Kimble MD Follow-up Evaluation I saw Brett Campos today for a scheduled follow-up evaluation. Brett Campos is a 45 y.o. with a history of seizures. He was previously followed by other epilepsy providers and this is the first time I am meeting him today. I reviewed his history which notes the following: Epilepsy Type/Syndrome: LRE, s/p LATL 1998 at [facility], continuing seizures Seizure history: Onset at baby; CP and 2n GTC seizures until surgery. Only CPs since surgery Seizure semiology: #1: CPS: Awake, no aura -> unresponsive x 10-30 seconds -> END; confused and sleepy x hours; weekly, none since #2: Prior to surgery: Aura of tunnel vision -> ISH -> END #3: GTC, none since surgery other then video EEG #4: Captured only during video EEG: upper extremity automatisms/left and right non-versive head turns; patient does not experience this at home Epilepsy Risk Factors: Difficult , no other Seizure Exacerbation Factors: none PMHx: Patient has no other medical problems. He has had two back surgeries. He has a congenital lazy eye. Family Hx: No epilepsy MRI: [facility] Oct 2015 left [facility] Video EE11/24/15 1. Continuous left temporal slowing; 2. No sharp waves 3. Multiple CP and 2ndGTC seizure captured with EEG lateralized to the right Previously: Seizures -None since discharge in Oct 2015 Medications -Tolerating Vimpat 100 mg BID without side effects; was overdosed at 300/300 which caused generalized weakness - LTG 200mg bid Interval history: He presents by himself today and is a reliable historian. 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 lamoTRIgine (LaMICtal) 200 mg Tablet Take 1 tablet by mouth 2 times daily. 60 tablet 5 ??? lacosamide (VIMPAT) 200 mg Tablet Take 1 tablet by mouth 2 times daily. (Patient taking differently: Take 200 mg by mouth 2 times daily. Taking 1/2 tablet twice daily) 60 tablet 5 No current facility-administered medications for this visit. Social Hx: Patient's history is consistent with difficult . He had a cord wrapped around his neck. He hadlearning disability. He did not have an IEP in school. He did not graduate high school. He attempted to get a GED but missed by one point. He has done a variety of different types of jobs throughout his life. Presently he works at [employer]. , no T/A/I, eating CBD chocolates *Seizure Control: QEpilepsy 02/21/2021 Last seizure was: Within past year Were seizures disabling? Yes Social Factors: QEPILEPSY SOCIAL FACTORS 02/21/2021 Employment status: Yes - [employer] Currently driving: Yes Review of Systems: Review of systems 02/21/2021 1. double vision Never 2. headache Never 3. rash Never 4. unsteadiness Rarely 5. upset stomach, nausea, vomiting Never 6. troubles with gums or teeth Never 7. weight loss or gain Rarely 8. tremors or shaking Never 9. restlessness Sometimes 10. dizziness Rarely 11. tiredness/sleepiness Often 12. trouble sleeping Often 13. difficulties concentrating Sometimes 14. feelings of aggression - 15. depression Sometimes 16. thoughts about ending your life Never 17. palpitations or chest pains Sometimes 18. bladder problems Often 19. breathing problems Never Memory and concentration symptoms (QOLIE-31) QEPILEPSY QOLIE31 02/21/2021 Memory problems A good bit of the time Difficulty reasoning and solving problems Some of the time Trouble remembering things people tell Some of the time Trouble concentrating on reading A little of the time Trouble concentrating on doing one thing at a time None of the time How much do your memory difficulties bother you? 5 - Extremely bothersome QOLIE-31 5.66 (low scores suggest severe memory symptoms) Depression Score (NDDI-E) QEPILEPSY DEPRESSION SCORE 02/21/2021 Depression Score 18 (scores >15 suggest Major Depression) Quality of Life QEPILEPSY QOL 02/21/2021 Quality of Life (10-Best Quality of Life; 0-Worst Quality of Life) 5 Examination Vitals: 02/21/21 0916 BP: 146/85 Patient Position: Sitting Pulse: 80 SpO2: 98% Weight: 91.2 kg (201 lb) Body mass index is 31.48 kg/m??. Patient was pleasant and provided a good history. Language was fluent and conversational without dysarthria or aphasia. PERRL, VFF, Gait was narrow based with no tandem dystaxia. Steady in the tandemRomberg position. There was no nystagmus, upper extremity dysmetria, or tremor. IMPRESSION/PLAN: Mr. 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 EMU evaluation in 2014 notable for ongoing seizures possibly coming from the right frontal- temporal lobe. He was previously doing well on lamotrigine and lacosamide however seizures persist. We discussed the risk of ongoing seizures and safety considerations. He should avoid driving or performing activities that could endanger himself or others if he were to suddenly lose consciousness. We discussed consideration for starting Xcopri and/or repeat presurgical evaluation for consideration of RNS if current seizures are indeed originating from right temporal lobe for example. He could read more about these options on epilepsy.com or the epilepsy foundation website. We will continue lacosamide 100 mg twice daily and lamotrigine 200 mg twice daily for now. We will check labs and levels for medication monitoring in addition to reversible causes of memory loss. Will request neuropscyhological evaluation and sleep study results- [facility]. Depending on results of the above and how he does will help to guide additional evaluation and management. He was given my contact information and encouraged to call with any questions concerns or worseningsymptoms. I would like to see him back in approximately 1 month or sooner as needed. Heydi Sanchez MD [facility] Neurology Total time associated with this visit was 40 minutes which was spent reviewing records, obtaining history and physical, counseling, coordination of care and documentation as described above. documented in this encounter Plan of Treatment Upcoming Encounters Date Type Department Care Team (Late st Contact Info) Description 08/25/2024 9:00 AM EDT Office Visit Hematology/Oncology at [address] [phone] Pia Cooper MD [facility] DR HEMATOLOGY [place] [address] Shayla Vuong APRN [facility] HEMATOLOGY [place] [address] 08/25/2024 9:30 AM EDT Scheduled View Only Hematology/Oncology at [address] [phone] Ekta Womack RN 08/25/2024 9:30 AM EDT Infusion Hematology Oncology at [address] [phone] documented as of this encounter Visit Diagnoses Diagnosis Refractory epilepsy Unspecified epilepsy with intractable epilepsy Memory loss Abnormal urination Other abnormality of urination Other fatigue documented in this encounter Care Teams Mediation Commissioner Relationship Specialty Start Date End Date Jose Manuel Kimble MD PCP - General Family Medicine 09/20/15 09/29/23 documented as of this encounter
--- OUTSIDE RECORDS SUMMARY | 2024-08-11 20:36 | XMS_ITS | Encounter Summary ---
[place] [address] Care Team Providers Care Business Support Specialist Name Role Phone Jose Manuel Kimble MD Primary Care Provider [phone] Reason for Visit * Reason Onset Date Comments TeleHealth 03/20/2021 Encounter Details Date Type Department Care Team (Late Contact Info) Description 03/20/2021 Telephone [place] [phone] Heydi Sanchez MD [facility] [place] [address] TeleHealth Social History Tobacco Use Types Packs/Day Years [...] encounter Miscellaneous Notes * Telephone Encounter - Cristin Zhao CMA - 03/20/2021 2:00 PM EDT Spoke with patient to review medications and allergies prior to upcoming appointment scheduled withNeurology provider. documented in this encounter Plan of Treatment Upcoming Encounters Date Type Department Care Team (Late Contact Info) Description 08/25/2024 9:00 AM EDT Office Visit Hematology/Oncology at [address] [phone] Pia Cooper MD [facility] DR HEMATOLOGY [place] [address] Shayla Vuong APRN [facility] HEMATOLOGY [place] [address] 08/25/2024 9:30 AM EDT Scheduled View Only Hematology/Oncology at [address] [phone] Ekta Womack RN 08/25/2024 9:30 AM EDT Infusion Hematology Oncology at [address] [phone] documented as of this encounter Visit Diagnoses Not on filedocumented in this encounter Care Teams Business Support Specialist Relationship Specialty Start Date End Date Jose Manuel Kimble MD PCP - General Family Medicine 09/20/15 09/29/23 documented as of this encounter
--- OUTSIDE RECORDS SUMMARY | 2024-08-11 20:36 | XMS_ITS | Encounter Summary ---
Author Organization [facility] [place] [address] Care Team Providers Care Farm Management Teacher Name Role Phone Jose Manuel Kimble MD Primary Care Provider [phone] Reason for Visit * Reason Onset Date Comments Appointment 03/06/2022 Encounter Details Date Type Department Care Team (Late Contact Info) Description 03/06/2022 Telephone [place] [phone] Heydi Sanchez MD [facility] [place] [place] [address] Appointment Social History Tobacco Use Types Packs/Day Years [...] encounter Miscellaneous Notes * Telephone Encounter - Mandy Garcia - 03/06/2022 4:16 PM EDT Please schedule from recall documented in this encounter Plan of Treatment Upcoming Encounters Date Type Department Care Team (Late Contact Info) Description 08/25/2024 9:00 AM EDT Office Visit Hematology/Oncology at [address] [phone] Pia Cooper MD [facility] [place] [address] Shayla Vuong APRN [facility] [place] [address] 08/25/2024 9:30 AM EDT Scheduled View Only Hematology/Oncology at [address] [phone] Ekta Womack RN 08/25/2024 9:30 AM EDT Infusion Hematology Oncology at [address] [phone] documented as of this encounter Visit Diagnoses Not on filedocumented in this encounter Care Teams Farm Management Teacher Relationship Specialty Start Date End Date Jose Manuel Kimble MD PCP - General Family Medicine 09/20/15 09/29/23 documented as of this encounter
--- OUTSIDE RECORDS SUMMARY | 2024-08-11 20:36 | XMS_ITS | Encounter Summary ---
[place] [address] Care Team Providers Care Stereotyper Apprentice Name Role Phone Danie Connor DO Primary Care Provider [phone] Encounter Details Date Type Department Care Team (Late st Contact Info) Description 07/19/2024 Telephone Hematology [place] [address] Laquita Borden RN Social History Tobacco Use Types Packs/Day Years Used Date Smoking Tobacco: Never Smokeless Tobacco: Never Alcohol Use Standard Drinks/Week Comments No 0 (1 standard drink = 0.6 oz pur e alcohol) [facility] Inpatient Questions Answer Date Recorded Prevent Contact [...] encounter Miscellaneous Notes * Telephone Encounter - Laquita Borden RN - 07/19/2024 11:05 AM EDT Message from executive secretary social welfare: Brett's sister, Breana, called. Patient had a LN biopsy on 06/28 and yesterday his neck swelled up yesterday and is very tender. No fevers but she's afraid something is going on. Please give her a call at: [phone]. documented in this encounter Plan of Treatment Upcoming Encounters Date Type Department Care Team (Late st Contact Info) Description 08/25/2024 9:00 AM EDT Office Visit Hematology/Oncology at [address] [phone] Pia Cooper MD [facility] [place] [address] Shayla Vuong APRN [facility] [place] [address] 08/25/2024 9:30 AM EDT Scheduled View Only Hematology/Oncology at [address] [phone] Ekta Womack RN 08/25/2024 9:30 AM EDT Infusion Hematology Oncology at [address] [phone] documented as of this encounter Visit Diagnoses Not on filedocumented in this encounter Care Teams Stereotyper Apprentice Relationship Specialty Start Date End Date Danie Connor DO [address] [place] [phone] PCP - General Family Medicine 06/04/24 documented as of this encounter
--- OUTSIDE RECORDS SUMMARY | 2024-08-11 20:36 | XMS_ITS | Encounter Summary ---
[place] [address] Care Team Providers Care Spray Machine Tender Name Role Phone Danie Connor DO Primary Care Provider [phone] Reason for Referral * Diagnostic Test (STAT) - Closed Specialty Diagnoses / Procedures Referred By Kymberly penaloza Referred To Contact Radiology Diagnoses Lymphoma, unspecified body region, unspecified lymphoma type Procedures NM PET CT Skull Base to Mid-thigh Brett Herr MD [facility] [place] [address] [place] [address] Referral ID Status Reason Start Date Expiration Date V isits Requested Visits Authorized [id number] Closed Specialty Service Requested 06/11/2024 08/09/2024 1 1 * Consultation (Routine) - Closed Specialty Diagnoses / Procedures Referred By Kymberly penaloza Referred To Contact Otolaryngology Diagnoses Lymphoma, unspecified body region, unspecified lymphoma type may be going right to OR w/ [employer] in the works Brett Herr MD [facility] [address] [place] [address] [facility] Otolaryngology [address] [place] [phone] Referral ID Status Reason Start Date Expiration Date V isits Requested Visits Authorized [id number] Closed Consult, Test & Treat 06/11/2024 06/11/2025 1 1 Reason for Visit * Reason Comments Advice Only * Consultation (Routine) - Authorized Specialty Diagnoses / Procedures Referred By Contac t Referred To Contact Hematology and Oncology Diagnoses Localized swelling, mass and lump, neck Unspecified B-cell lymphoma, unspecified site Moisés Chery MD [address] [place] [id number] [facility] Hem Onc [address] [place] [address] Referral ID Status Reason Start Date Expiration Date Visits Requested Visits Authorized [id number] Authorized Consult, Test & Treat PCP Updated and/or Approved 05/27/2024 05/27/2025 6 6 Encounter Details Date Type Department Care Team (Late st Contact Info) Description 06/11/2024 9:00 AM EDT Office Visit Hematology [place] [phone] Brett Herr MD [facility] [place] [address] Julius Castillo MD [facility] DR HEMATOLOGY/[place] [address] Lymphoma, unspecified body region, unspecified lymphoma type Social History Tobacco Use Types Packs/Day Years [...] Sign Reading Time Taken Comments Blood Pressure 134/90 06/11/2024 9:06 AM EDT Pulse 71 06/11/2024 9:06 AM EDT Temperature 36.5 ??C (97.7 ??F) 06/11/2024 9:06 AM ED T Respiratory Rate 16 06/11/2024 9:06 AM EDT Oxygen Saturation 99% 06/11/2024 9:06 AM EDT Inhaled Oxygen Concentration - - Weight 90.1 kg (198 lb 10.2 oz) 06/11/2024 9:06 AM EDT Height 173.2 cm (5' 8.19) 06/11/2024 9:06 AM ED T Body Mass Index 30.04 06/11/2024 9:06 AM EDT documented in this encounter Progress Notes * Brett Herr MD - 06/11/2024 9:00 AM EDT OUTPATIENT HEMATOLOGY/ ONCOLOGY CONSULTATION HISTORY [...] consistent with either follicular 3B or DLBCL PET- pending Treatment Course INTERIM HISTORY See presentation SOCIAL HISTORY- reviewed with significant changes noted 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 Vimpat 200 mg Tablet Take 1/2 (one-half) tablet by mouth twice daily lamoTRIgine (LaMICtal) 200 mg Tablet Take 1 tablet by mouth 2 times daily. PAST MEDICAL HISTORY- reviewed Patient Active Problem List Diagnosis Code Seizure R56.9 COMPREHENSIVE REVIEW OF SYSTEMS Besides what is mentioned in the HPI, all other systems are negative PHYSICAL EXAMINATION No data found. NAD, pleasant, Heart is RRR Lung sounds are CTAB Abd is soft, NT/ ND, there is no palpable organomegally Lymphadenopathy is not appreciated in neck or axilla Joints are not swollen or inflamed There are no gross neurologic deficits. Facial movement is symmetric. Speech is fluent and congruent. Gait and balance are normal Affect and mood are appropriate for the situation There are no appreciable rashes LABORATORY EVALUATION No results found for this or any previous visit (from the past 24 hour(s)). ASSESSMENT: Brett Campos is a 48 y.o. male presents with a yet to be classified completely lymphoma. Suspicious for either Follicular 3B or DLBCL. I think it is important to classify accurately with an excisional biopsy. We will likely be treating with RCHOP, or Galo-R-CHP. Discussed the relatively good prognosis of these diseases, where the goal will likely be cure. We will also stage with PET and get ECHO. May consider PORT once plan is in place. May also transfer care to [facility]. Brett Herr MD Pager: [phone] 06/11/2024 documented in this encounter Plan of Treatment Upcoming Encounters Date Type Department Care Team (Late st Contact Info) Description 08/25/2024 9:00 AM EDT Office Visit Hematology/Oncology at [address] [phone] Pai Cooper MD [facility] [address] [place] [address] Shayla Vuong APRN [facility] [place] [address] 08/25/2024 9:30 AM EDT Scheduled View Only Hematology/Oncology at [address] [phone] Ekta Womack RN 08/25/2024 9:30 AM EDT Infusion Hematology Oncology at [address] [phone] Scheduled Referrals Name Type Priority Associated Diagnoses Orde r Schedule Referral to ENT Outpatient Referral Routine Lymphoma, unspecified body region, unspecified lymphoma type Ordered: 06/11/2024 documented as of this encounter Results * NM PET CT Skull Base to Mid-thigh (06/25/2024 7:48 AM EDT) WORKSTATION ID [id number] RAD Anatomical Region Laterality Modality Positron Emissio [...] who have questions please contact the health manager managed care that requested your imaging first. ? Electronically signed by: Jose Martinez MD, [facility] ([phone]), at 06/25/2024 8:30 AM Narrative 06/25/2024 8:30 AM EDT EXAMINATION: NM PET CT STANDARD SKULL BASE TO MID-THIGH CLINICAL HISTORY: Lymphoma staging C85.90, Non-Hodgkin lymphoma, unspecified, unspecified site TECHNIQUE: Following IV injection of 71-nnnbzr-4-deoxyglucose (FDG) a standard uptake of approximately 60 [...] unspecified site TECHNIQUE: Following IV injection of 00-mfohys-8-deoxyglucose (FDG) astandard uptake of approximately 60 minutes, [...] patients who have questions please contactthe health manager managed care that requested your imaging first. Electronically signed by: Jose Martinez MD, [facility]([phone]), at 06/25/2024 8:30 AM Brett Herr MD IMG PET ORDERABLES * Uric acid (06/11/2024 10:10 AM EDT) Uric Acid 4.2 3.5 - 8.5 mg/dL [facility] Blood 06/11/2024 10:1 0 AM EDT 06/11/2024 10:24 AM EDT Narrative Resulting Agency Comment Spec In Lab Brett Herr MD CHEMISTRY ORDERABL ES [facility] [place] [address] * Hepatitis C Antibody (06/11/2024 10:10 AM EDT) Hepatitis C Antibody Negative Negative [facility] Blood 06/11/2024 10:1 0 AM EDT 06/11/2024 10:24 AM EDT Narrative Resulting Agency Comment Spec In Lab Brett Herr MD CHEMISTRY ORDERABL ES Performing Organization Address [facility] de Phone Number [facility] [place] [address] * Hepatitis B Surface Antigen (06/11/2024 10:10 AM EDT) Hepatitis B Surface Antigen Negative Negative [facility] Blood 06/11/2024 10:1 0 AM EDT 06/11/2024 10:24 AM EDT Narrative Resulting Agency Comment Spec In Lab Brett Herr MD CHEMISTRY ORDERABL ES Performing Organization Address [facility] de Phone Number [facility] [place] [address] * Hepatitis B Surface Antibody (06/11/2024 10:10 AM EDT) Hepatitis B Surface Antibody, Quantitative <3.5 IU/L [facility] Comment: HepB Surface Ab Quant: Unvaccinated: < 8.5 IU/L Vaccinated: >= 11.5 IU/L Hepatitis B Surface Antibody Negative [facility] Comment: Patient is presumed to be not vaccinated or immune to HBV infection. Expected Results: Vaccinated: Positive Unvaccinated: Negative Blood 06/11/2024 10:1 0 AM EDT 06/11/2024 10:24 AM EDT Narrative Resulting Agency Comment Spec In Lab Brett Herr MD CHEMISTRY ORDERABL ES Performing Organization Address [facility] Co de Phone Number [facility] [place] [address] * Hepatitis B Core Antibody, Total (06/11/2024 10:10 AM EDT) Hepatitis B Core Antibody Negative Negative [facility] Blood 06/11/2024 10:1 0 AM EDT 06/11/2024 10:24 AM EDT Narrative Resulting Agency Comment Spec In Lab Brett Herr MD CHEMISTRY ORDERABL ES Performing Organization Address [facility]/ZIP Co de Phone Number [facility] [place] [address] * Lactate Dehydrogenase (06/11/2024 10:10 AM EDT) Lactate Dehydrogenase 193 110 - 220 unit/L [facility] Blood 06/11/2024 10:1 0 AM EDT 06/11/2024 10:24 AM EDT Narrative Resulting Agency Comment Spec In Lab Brett Herr MD CHEMISTRY ORDERABL ES Performing Organization Address [facility] Co de Phone Number [facility] [place] [address] * HIV Screen, 4th Generation (MC/CGP/APD/NLH) (06/11/2024 10:10 AM EDT) HIV Ab/Ag Screen Negative Negative [facility] Comment: This 4th Generation HIV test [...] HIV Comment Low Risk of HIV Infection [facility] Blood 06/11/2024 10:1 0 AM EDT 06/11/2024 10:24 AM EDT Narrative Resulting Agency Comment Spec In Lab Brett Herr MD CHEMISTRY ORDERABL ES Performing Organization Address [facility]/ZIP Co de Phone Number [facility] [place] [address] * Comprehensive metabolic panel (non-fasting) (06/11/2024 10:10 AM EDT) Glucose 94 65 - 199 mg/dL [facility] Comment:Diabetes: >=200 mg/d L plus symptoms Blood Urea Nitrogen 11 10 - 20 mg/dL [facility] Creatinine 0.94 0.80 - 1.50 mg/dL [facility] Sodium 140 135 - 145 mmol/L [facility] Potassium 4.1 3.5 - 5.0 mmol/L [facility] Comment: Please note: ??Patients with WBC >100,000 may have falsely elevated Potassium levels. ??For accurate Potassium quantification in these patients send serum separator tube (gold top) for subsequent determinations. ??Contact the Clinical Chemistry Laboratory if there are any questions. Chloride 104 98 - 107 mmol/L [facility] Carbon Dioxide 27 22 - 31 mmol/L [facility] Anion Gap 9 5 - 15 mmol/L [facility] Calcium 9.3 8.5 - 10.5 mg/dL [facility] Protein, Total 7.0 6.1 - 8.0 g/dL [facility] Albumin 4.4 3.2 - 5.2 g/dL [facility] Aspartate Aminotransferase 14 0 - 39 unit/L [facility] Alanine Aminotransferase 23 0 - 55 unit/L [facility] Alkaline Phosphatase 61 40 - 130 unit/L [facility] Bilirubin, Total 0.6 0.2 - 1.3 mg/dL [facility] Est Glomerular Filtration Rate 99 >=60 mL/min/1. 73 m?? [facility] Comment: This patient's estimated GFR was [...] Lab Brett Herr [place] [address] documented in this encounter Visit Diagnoses Diagnosis Lymphoma, unspecified body region, unspecified lymphoma type documented in this encounter Care Teams Spray Machine Tender Relationship Specialty Start Date End Date Danie Connor DO [address] [place] [address] PCP - General Family Medicine 06/04/24 documented as of this encounter
--- OUTSIDE RECORDS SUMMARY | 2024-08-11 20:36 | XMS_ITS | Encounter Summary ---
[place] [address] Care Team Providers Care Assistant County Attorney Name Role Phone Jose Manuel Kimble MD Primary Care Provider [phone] Encounter Details Date Type Department Care Team (Latest Contact Info) Description 03/26/2021 3:00 PM EDT TH Visit (TeleHealth) [place] [address] Heydi Sanchez MD [facility] [place] [address] Temporal lobe epilepsy, intractable Social History Tobacco Use Types Packs/Day Years Used Date Smoking Tobacco: Never Smokeless Tobacco: Never Alcohol Use Standard Drinks/Week Comments No 0 (1 standard drink = 0.6 oz pur e alcohol) Sex and Gender Information Value Date Recorded Sex Assigned at Not on file Gender Identity Not on file Sexual Orientation Not on file documented as of this encounter Progress Notes * Heydi Sanchez MD - 03/26/2021 3:00 PM EDT [facility] [place] [address] Re - Brett Campos 1975 PCP - Jose Manuel Kimble MD Follow-up Evaluation/Telehealth visit Epilepsy Type/Syndrome: LRE, s/p LATL 1998 at [facility], continuing seizures Seizure history: Onset at baby; [...] lazy eye. Family Hx: No epilepsy [place] [facility] [place] left [facility] Video EE11/24/15 1. Continuous left temporal slowing; 2. No sharp waves 3. Multiple CP and 2ndGTC seizure captured with EEG lateralized to the right Previously: Seizures -None since discharge in Oct 2015 Medications -Tolerating Vimpat 100 mg BID without side effects; was overdosed at 300/300 which caused generalized weakness - LTG 200mg bid Previously noted: Current seizures- just stare and memory goes blank Usually someone just tells him he is staring off Unclear if he was alone if he would know if he were having one No convulsions since JOSE Just got license renewed but rarely drives Short term memory is bad snf memory not as bad Just had a memory test done- not too bad- at [facility] Sleep study Medicine works for a few years and then stops Working at [employer] now Tired a lot Eating CBD chocolates [facility] in [place]- neurologist there Interval history: This was a telephone visit as the patient was unable to log onto Zoom at this time No seizures that he is aware of since the last visit For refractory epilepsy however May consider implant - has neurologist in [facility] who he will continue to follow with regularly Overall doing well Current Outpatient Medications Medication Sig Dispense Refill ??? lamoTRIgine (LaMICtal) 200 mg Tablet Take 1 tablet by mouth 2 times daily. 60 tablet 5 ??? lacosamide (VIMPAT) 200 mg Tablet Take 0.5 tablets by mouth 2 times daily. Taking 1/2 tablet twice daily 60 tablet 3 No current facility-administered medications for this visit. [...] throughout his life. Presently he works at [employer]. , no T/A/I, eating CBD chocolates *Seizure Control: QEpilepsy 02/21/2021 Last seizure was: Within past year Were seizures disabling? Yes Social Factors: QEPILEPSY SOCIAL FACTORS 02/21/2021 Employment status: Yes - [employer] Currently driving: Yes Review of Systems: Review [...] Life; 0-Worst Quality of Life) 5 Examination There were no vitals filed for this visit. There is no height or weight on file to calculate BMI. Patient was pleasant and provided a good history. Language was fluent and conversational without dysarthria or aphasia. IMPRESSION/PLAN: Mr. 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 EMU evaluation in 2015 notable for ongoing seizures possibly coming from the right frontal- temporal lobe. We previously discussed the risk of ongoing seizures and safety considerations. He should avoid driving or performing activities that could endanger himself or others if he were to suddenly lose consciousness. We also discussed consideration for starting Xcopri and/or repeat [...] request neuropscyhological evaluation and sleep study results- [facility]. Would like labs resent to [place], [place]- will resend Would like to think about repeat EMU evaluation Will follow with local neurologist for now and me annually Will call to schedule emu admission if he decides to pursue this Heydi Sanchez MD [facility] [place] Total time associated with this visit was 30 minutes which was spent in counseling, coordination ofcare and documentation as described above. documented in this encounter Plan of Treatment Upcoming Encounters Date Type Department Care Team (Late st Contact Info) Description 08/25/2024 9:00 AM EDT Office Visit Hematology/Oncology at [address] [phone] Pia Cooper MD [facility] DR [place] [address] Shayla Vuong APRN [facility] [place] [address] 08/25/2024 9:30 AM EDT Scheduled View Only Hematology/Oncology at [address] [phone] Ekta Womack RN 08/25/2024 9:30 AM EDT Infusion Hematology Oncology at [address] [phone] documented as of this encounter Visit Diagnoses Diagnosis Temporal lobe epilepsy, 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
--- OUTSIDE RECORDS SUMMARY | 2024-08-11 20:36 | XMS_ITS | Encounter Summary ---
[place] [address] Care Team Providers Care Dry House Attendant Name Role Phone Danie Connor DO Primary Care Provider [phone] Reason for Visit * Diagnostic Test (STAT) - Closed Specialty Diagnoses / Procedures Referred By Contac t Referred To Contact Radiology Diagnoses Lymphoma, unspecified body region, unspecified lymphoma type Procedures NM PET CT Skull Base to Mid-thigh Brett Herr MD [facility] DR HEMATOLOGY [place] [address] [place] [address] Referral ID Status Reason Start Date Expiration Date V isits Requested Visits Authorized [id number] Closed Specialty Service Requested 06/11/2024 08/09/2024 1 1 Encounter Details Date Type Department Care Team (Latest Contact Info) Description 06/25/2024 6:15 AM EDT - 06/25/2024 11:59 PM EDT Hospital Encounter [place] [address] Brett Herr MD [facility] DR HEMATOLOGY [place] [address] Discharge Disposition: Home Social History Tobacco Use [...] 9:00 AM EDT Office Visit Hematology/Oncology at [address] [phone] Pia Cooper MD [facility] HEMATOLOGY [place] [address] Shayla Vuong APRN [facility] DR HEMATOLOGY [place] [address] 08/25/2024 9:30 AM EDT Scheduled View Only Hematology/Oncology at [address] [phone] Ekta Womack RN 08/25/2024 9:30 AM EDT Infusion Hematology Oncology at [address] [phone] documented as of this encounter Procedures Procedure Name Priority Date/Time Associated Diagnosis Comments NM PET CT SKULL BASE TO MID-THIGH ([facility]) STAT 06/25/2024 7:48 AM EDT Lymphoma, unspecified body region, unspecified lymphoma type POCT GLUCOSE Routine 06/25/2024 6:29 AM EDT documented in this encounter Results * POCT Glucose (06/25/2024 6:29 AM EDT) Glucose, POC 103 65 - 199 mg/dL [facility] Comment: Supplemental ranges: <140 mg/dL before meals <180 mg/dL all other times of the day Blood 06/25/2024 6:29 AM EDT 06/25/2024 6:29 AM EDT Brett Hrer MD POINT OF CARE TEST ORDERABLES Performing Organization Address City/State/[facility] Co de Phone Number [facility] [place] [phone] documented in this encounter Visit Diagnoses Not on filedocumented in this encounter Care Teams Dry House Attendant Relationship Specialty Start Date End Date Danie Connor DO [address] [place] [address] PCP - General Family Medicine 06/04/24 documented as of this encounter
--- OUTSIDE RECORDS SUMMARY | 2024-08-11 20:36 | XMS_ITS | Encounter Summary ---
Author Organization [facility] [place] [address] Care Team Providers Care Spread Cutter Name Role Phone Danie Connor Primary Care Provider [phone] Encounter Details Date Type Department Care Team (Latest Contact Info) Description 06/11/2024 Travel Social History Tobacco Use Types Packs/Day [...] AM EDT Office Visit Hematology/Oncology at [address] [phone] Pia Cooper MD [facility] DR [place]AT[place] [address] Shayla Vuong APRN [facility] DR [place] [address] 08/25/2024 9:30 AM EDT Scheduled View Only Hematology/Oncology at [address] [phone] Ekta Womack RN 08/25/2024 9:30 AM EDT Infusion Hematology Oncology at [address] [phone] documented as of this encounter Visit Diagnoses Not on filedocumented in this encounter Care Teams Spread Cutter Relationship Specialty Start Date End Date Danie Connor DO [address] [place] [address] PCP - General Family Medicine 06/04/24 documented as of this encounter
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
--- OUTSIDE RECORDS SUMMARY | 2024-08-11 20:36 | XMS_ITS | Encounter Summary ---
[place] [address] Care Team Providers Care Contract Admin Name Role Phone Jose Manuel Kimble MD Primary Care Provider [phone] Reason for Visit * Reason Onset Date Comments Medication Refill 11/17/2020 Encounter Details Date Type Department Care Team (Late st Contact Info) Description 11/17/2020 [place] [phone] Kwabena Garcia MD [facility] [place] [address] Social History Tobacco Use Types Packs/Day Years [...] encounter Miscellaneous Notes * Telephone Encounter - Margarita Munoz CMA - 11/17/2020 4:31 PM EST Images from the original note were not included. Refills request prepped pharmacy updated and sent to Dr. Garcia for review and signature. Addie Hunter ?? 11/16/20 1:11 PM Note Call Center / [place] Message Prescription Refill Request ?? Clinical Assembly Cleaner message ?? Provider patient sees in Clinic: Jose ?? Caller and relationship (if other than patient-full name): [employer]spiel Call back Number: [phone] Ok to leave a message: y ?? Name of Med: lamoTRIgine (LAMICTAL ?? Strength of Pills: 200mg ?? Dosing Directions: take 200mg by mouth 2 times daily ?? 30 or 90 Day Supply: 30 ?? [facility] ?? Last Appointment: 08/20 ?? Next Appointment: (IF CALL IS FROM PATIENT/FAMILY AND THERE IS NO FOLLOW UP SCHEDULED REVIEW CHART TO SEE WHEN APPOINTMENT IS NEEDED AND SCHEDULE BEFORE SENDING MESSAGE) x ?? Is Patient out of Medication?: yes ?? * Telephone Encounter - Smita Salmon - 11/17/2020 2:46 PM EST Call Center / [facility] Message Prescription Refill Request Clinical Assembly Cleaner message Provider patient sees in Clinic: Jose Caller and relationship (if other than patient-full name): pt Call back Number: [phone] Ok to leave a message: y Name of Med: lacosamide (VIMPAT) 200 mg Tablet Strength of Pills: 200mg Dosing Directions: Take 1 tablet by mouth 2 times daily. 30 or 90 Day Supply: 60 tablet Pharmacy: [facility] Last Appointment: 08/17/20 Next Appointment: (IF CALL IS FROM PATIENT/FAMILY AND THERE IS NO FOLLOW UP SCHEDULED REVIEW CHART TO SEE WHEN APPOINTMENT IS NEEDED AND SCHEDULE BEFORE SENDING MESSAGE) Is Patient out of Medication?: n documented in this encounter Plan of Treatment Upcoming Encounters Date Type Department Care Team (Late st Contact Info) Description 08/25/2024 9:00 AM EDT Office Visit Hematology/Oncology at [address] [phone] Pia Cooper MD [facility] [place] [address] Shayla Vuong, [place] LINE ATTENDANT [facility] [place] [address] 08/25/2024 9:30 AM EDT Scheduled View Only Hematology/Oncology at [address] [phone] Ekta Womack RN 08/25/2024 9:30 AM EDT Infusion Hematology Oncology at [address] [phone] documented as of this encounter Visit Diagnoses Not on filedocumented in this encounter Care Teams Contract Admin Relationship Specialty Start Date End Date Jose Manuel Kimble MD PCP - General Family Medicine 09/20/15 09/29/23 documented as of this encounter
--- OUTSIDE RECORDS SUMMARY | 2024-08-11 20:36 | XMS_ITS | Encounter Summary ---
Author Organization [facility] [place] [address] Care Team Providers Care Portable Irrigation Operator Name Role Phone Danie Connor DO Primary Care Provider [phone] Reason for Referral * Diagnostic Test (Routine) - Closed Specialty Diagnoses / Procedures Referred By Contfernando t Referred To Contact Cardiology Diagnoses Encounter for echocardiogram before initiation of chemotherapy Lymphoma, unspecified body region, unspecified lymphoma type Procedures Echocardiogram Transthoracic Adriana Wilkins APRN [facility] [place] [address] [facility] [place] [address] Referral ID Status Reason Start Date Expiration Date V isits Requested Visits Authorized [id number] Closed Specialty Service Requested 06/11/2024 08/09/2024 1 1 Encounter Details Date Type Department Care Team (Late st Contact Info) Description 06/11/2024 Orders Only Hematology [place] [address] Adriana Wilkins APRN [facility] [place] [address] Encounter for echocardiogram before initiation of chemotherapy; [...] 9:00 AM EDT Office Visit Hematology/Oncology at [address] [phone] Pia Cooper MD [facility] [place] [address] Adriana Wilkins APRN [facility] [place] [address] 08/25/2024 9:30 AM EDT Scheduled View Only Hematology/Oncology at [address] [phone] Ekta Womack RN 08/25/2024 9:30 AM EDT Infusion Hematology Oncology at [address] [phone] documented as of this encounter Results * ECHO COMPLETE (06/24/2024 10:58 AM EDT) Anatomical Region Laterality Modality Cardiac Other 06/24/2024 10:1 5 AM EDT Narrative 06/24/2024 11:10 AM EDT [address] [place] [id number] ? Echocardiogram Report Name: MO CAMPOS ? Study Date: 06/24/2024 10:15 AMBP: 130/86 mmHg ? Patient Location: : 1975 ? Height: 173 cm ? Account: [id number] Age: 48 yrs ? Weight: 90 kg Gender: Male ?BSA: 2.0 m2 Ordering Physician: ADRIANA WILKINS Referring Physician: ADRIANA WILKINS Performed By: Clotilde Kaur RDCS Reason For Study: Encounter for echocardiogram before initiation of chemotherapy, Lymphoma Exam Location: [facility]. Interpretation Summary -Left ventricular systolic function [...] findings. No comparison study is available. Procedure Complete-[id number]. Left ventricular strain. Satisfactory quality. Left Ventricle [...] Note Júnior Higgins MD - 06/24/2024 [address] [place] [address] Echocardiogram Report Name: MO CAMPOS Study Date: 07/25/455100:15 AMBP: 130/86 mmHg Patient Location: : 1975 Height: 173 cm Account: [id number] Age: 48 yrs Weight: 90 kg Gender: Male BSA: 2.0 m2 Ordering Physician: ADRIANA WILKINS Referring Physician: ADRIANA WILKINS Performed By: Clotilde Kaur RDCS Reason For Study: Encounter for echocardiogram before initiation ofchemotherapy, Lymphoma Exam Location: [facility]. Interpretation Summary -Left ventricular systolic function [...] findings. No comparison study is available. Procedure Complete-[id number]. Left ventricular strain. Satisfactory quality. Left Ventricle [...] Lymphoma, unspecified body region, unspecified lymphoma type Encounter for echocardiogram before initiation of chemotherapy Lymphoma, unspecified body region, unspecified lymphoma type documented in this encounter Care Teams Portable Irrigation Operator Relationship Specialty Start Date End Date Danie Connor DO [address] [place] [address] PCP - General Family Medicine 06/04/24 documented as of this encounter
--- OUTSIDE RECORDS SUMMARY | 2024-08-11 20:36 | XMS_ITS | Encounter Summary ---
Author Organization [facility] [address] Care Team Providers Care Per Diem Physical Therapist Name Role Phone Danie Connor Primary Care Provider [phone] Encounter Details Date Type Department Care Team (Late Contact Info) Description 07/26/2024 Orders Only H[place] [address] Shayla Vuong APRN [facility] [address] [place] [address] Lymphoma, unspecified body region, unspecified lymphoma type [...] 9:00 AM EDT Office Visit Hematology/Oncology at [address] [phone] Pia Cooper MD [facility] [place] [address] Shayla Vuong APRN [facility] HEMATOLOGY [place] [address] 08/25/2024 9:30 AM EDT Scheduled View Only Hematology/Oncology at [address] [phone] Ekta Womack RN 08/25/2024 9:30 AM EDT Infusion Hematology Oncology at [address] [phone] Scheduled Orders Name Type Priority Associated Diagnoses Orde r Schedule CBC (with Diff) Lab STAT Lymphoma, unspecified body region, unspecified lymphoma type As Needed for 20 Occurrences starting 07/26/2024 until 07/26/2025 Comprehensive metabolic panel Lab STAT Lymphoma, unspecified body region, unspecified lymphoma type As Needed for 20 Occurrences starting 07/26/2024 until 07/26/2025 Lactate Dehydrogenase Lab STAT Lymphoma, unspecified body region, unspecified lymphoma type As Needed for 20 Occurrences starting 07/26/2024 until 07/26/2025 Uric acid Lab STAT Lymphoma, unspecified body region, unspecified lymphoma type As Needed for 20 Occurrences starting 07/26/2024 until 07/26/2025 documented as of this encounter Visit Diagnoses Diagnosis Lymphoma, unspecified body region, unspecified lymphoma type documented in this encounter Care Teams Per Diem Physical Therapist Relationship Specialty Start Date End Date Danie Connor DO [address] [place] [address] PCP - General Family Medicine 06/04/24 documented as of this encounter
--- OUTSIDE RECORDS SUMMARY | 2024-08-11 20:36 | XMS_ITS | Encounter Summary ---
Author Organization [facility] [place] [address] Care Team Providers Care Avionics Electronics Technician Name Role Phone Jose Manuel Kimble MD Primary Care Provider [phone] Reason for Visit * Reason Onset Date Comments Prior Authorization 04/23/2021 Encounter Details Date Type Department Care Team ([facility] st Contact Info) Description 04/23/2021 [place] [phone] Heydi Sanchez MD [facility] [place] [address] Prior Authorization Social History Tobacco Use Types Packs/Day Years [...] encounter Miscellaneous Notes * Telephone Encounter - Paula Bills - 04/23/2021 4:36 PM EDT Provider patient sees in Clinic: Daniel Caller and relationship (if other than patient-full name): Self Call Back Number: [phone] Ok to leave a message: yes Name of Medication requiring PA: Vimpat When will patient be out of medication: today (Pharmacy Coverage Information can be found on the back of the patient's insurance card under pharmacy benefits. This information must be supplied in order for medication PA's to be processed. If thecaller does not have this information they must get the information and call back to the office) Pharmacy Benefits/Coverage Company: Medicaid [place] Pharmacy Benefits/Coverage ID #: [id number] Pharmacy Benefits/Coverage Company Phone Number: Pharmacy used by patient: [facility] location[facility] Disposition of Call: ??? Red Arrow Message Reason red arrow Message: Pt out of medication Nurse/[place] contacted via: Message: y Call: n Pager: n * Telephone Encounter - Paula Bills - 04/23/2021 4:36 PM EDT Pt following up. He's out of the medication and is paying $40 a day out of pocket. Please gilmore if possible * Telephone Encounter - Cheryl Em - 04/23/2021 4:36 PM EDT Images from the original note were not included. * Telephone Encounter - Cheryl Em - 04/23/2021 4:36 PM EDT Images from the original note were not included. * Telephone Encounter - Cheryl Em - 04/23/2021 4:36 PM EDT Images from the original note were not included. documented in this encounter Plan of Treatment Upcoming Encounters Date Type Department Care Team (Late st Contact Info) Description 08/25/2024 9:00 AM EDT Office Visit Hematology/Oncology at [address] [address] Pia Cooper MD [facility] HEMATOLOGY [place] [address] Shayla Vuong, CLEMENTE [facility] DR HEMATOLOGY [place] [address] 08/25/2024 9:30 AM EDT Scheduled View Only Hematology/Oncology at [address] [phone] Ekta Womack RN 08/25/2024 9:30 AM EDT Infusion Hematology Oncology at [address] [phone] documented as of this encounter Visit Diagnoses Not on filedocumented in this encounter Care Teams Avionics Electronics Technician Relationship Specialty Start Date End Date Jose Manuel Kimble MD PCP - General Family Medicine 09/20/15 09/29/23 documented as of this encounter
--- OUTSIDE RECORDS SUMMARY | 2024-08-11 20:36 | XMS_ITS | Encounter Summary ---
Author Organization [facility] [place] [address] Care Team Providers Care Check Cashier Name Role Phone Geeta Danie Juli ORTEGA Primary Care Provider [phone] Reason for Visit * Auth/Cert (Routine) Specialty Diagnoses / Procedures Referred By Kymberly t Referred To Contact Diagnoses Lymphoma, unspecified body region, unspecified lymphoma type right submandibular lymphadenopathy Procedures PRO BIOPSY/EXCISION LYMPH NODE OPEN SUPERFICIAL BIOPSY OR EXCISION OF LYMPH NODE(S), OPEN, SUPERFICIAL (WRVU 3.79) Dorinda Pastrana MD [facility] [place] [address] [facility] Referral ID Status Reason Start Date Expiration Date Visits Re quested Visits Authorized [id number] 1 1 Encounter Details Date Type Department Care Team (Late st Contact Info) Description 06/28/2024 9:16 AM EDT - 06/28/2024 11:16 AM EDT Surgery [place] [address] Dorinda Pastrana MD [facility] [place] [address] BIOPSY OR EXCISION OF LYMPH NODE(S), OPEN, SUPERFICIAL (WRVU 3.79) Social History Tobacco Use Types Packs/Day Years Used Date Smoking Tobacco: Never Smokeless Tobacco: Never Alcohol Use Standard Drinks/Week Comments No 0 (1 standard drink = 0.6 oz pur e alcohol) [facility] Inpatient Questions Answer Date Recorded Prevent Contact [...] Sign Reading Time Taken Comments Blood Pressure 101/64 06/28/2024 11:00 AM EDT Pulse 72 06/28/2024 11:00 AM EDT Temperature 36 ??C (96.8 ??F) 06/28/2024 9:56 AM EDT Respiratory Rate 17 06/28/2024 11:00 AM EDT Oxygen Saturation 93% 06/28/2024 11:00 AM EDT Inhaled Oxygen Concentration - - Weight 90.8 kg (200 lb 3.2 oz) 06/28/2024 7:52 A M EDT Height 170.2 cm (5' 7) 06/28/2024 7:52 AM EDT Body Mass Index 31.36 06/28/2024 7:52 AM EDT documented in this encounter Discharge Instructions * Patient Instructions* Dorinda Pastrana MD - 06/28/2024 9:54 AM EDT Go home and rest. Avoid heavy lifting > 20lbs for 5 days, this means you will need to not be at work until 07/03. OK to shower in 24 hours, the steri strips on your incision will fall off on their own. Resume a regular diet. Some swelling along the incision is normal for the next few weeks, but notify Dr. Pastrana if you feel that there is fluid or some other collection under the skin. Call Dr. Pastrana's office with any questions or concerns: [phone] documented in this encounter Medications at Time of Discharge Medication Sig Dispensed Refills Start Date End Date Vimpat 200 mg TabletIndications:Refract ory epilepsy Take 1/2 (one-half) tablet by mouth twice daily 60 tablet 3 08/24/2021 lamoTRIgine (LaMICtal) 200 mg TabletIndications:Refract ory epilepsy Take 1 tablet by mouth 2 times daily. 60 tablet 5 02/21/2021 documented as of this encounter H&P Notes * Dorinda Pastrana MD - 06/28/2024 8:42 AM EDT INTERVAL H&P S: Brett Campos's condition unchanged since H&P originally performed Denies any new ED visits, hospitalizations, trauma, or new events. Has been overall doing well. O: Patient Vitals for the past 24 hrs: BP Temp Temp src Pulse Resp SpO2 Height Weight 06/28/24 0752 124/75 36.8 ??C (98.2 ??F) Temporal 75 18 97 % 170.2 cm (5' 7) 90.8 kg (200 lb 3.2 oz) NAD, A&Ox3 Non-labored respirations, clear to auscultation bilaterally Regular rate and rhythm, no murmur on auscultation Site marked AP: 48 y.o. male with right submandibular lymphadenopathy. - After extensive discussion of the risks, benefits, and alteratives of surgical intervention, the patient consented to proceed with surgery. - IV antibiotics ordered - Proceed to OR for: Procedure(s): BIOPSY OR EXCISION OF LYMPH NODE(S), OPEN, SUPERFICIAL (WRVU 3.79) Dorinda Pastrana MD documented in this encounter Miscellaneous Notes * Op Note - Dorinda Pastrana MD - 06/28/2024 9:[address] [facility] [place] Patient Name: Brett Campos : [id number] MR#: [id number] Case Date: 06/28/2024 Surgeon: Surgeons and Role: * Dorinda Pastrana MD - Primary Preoperative diagnosis: right submandibular lymphadenopathy Postoperative diagnosis: right submandibular lymphadenopathy Procedure(s) (LRB): BIOPSY OR EXCISION OF LYMPH NODE(S), OPEN, SUPERFICIAL (WRVU 3.79) (Right) Anesthesia: General Estimated Blood Loss: Specimens removed during surgery: * No orders in the log * Drains: * No LDAs found * Surgical Closure: Primary Closure - skin incision is completely closed without any wires, kevin, drains or other devices Disposition: awakened from anesthesia, extubated and taken to the recovery room in a stable condition, having suffered no apparent untoward event. Condition: doing well without problems (Please see the Surgical Encounter Summary for any Implant and Specimen details pertinent to this patient.) HPI/Surgical Indications: 48 y/o with right submandibular lymph node consistent with lymphoma Procedure Description: After informed consent was obtained, patient was brought to the operating room and placed supine on the operating room table. A time-out was performed and confirmed amongst theoperating room staff. General anesthesia was administered. Patient was prepped and draped in standard sterile fashion. An incision was marked in a skin crease 2 fingerbredths below the angle of the mandible. This was injected with 1% lidocaine with 1:252011 epinephrine. Incision was made and subplatysmal flap was raised superiorly. Fascia overlying the lymph node was incised along the inferior border and raised superiorly as well. The lymph node was noted and dissected away from the wound bed. The digastric muscle was noted anteriorly. The lymph node was sent to pathology. Wound was irrigated with normal saline. Surgicell was placed in the wound bed, any bleeding was cauterized with bipolar cautery. The woundwas closed with 3-0 vicryl in the platysmal and deep dermal layers, and 4-0 monocryl in subcuticular fashion over the skin, followed by mastisol and steri strips. Patient awoke in stable condition, extubated. Surgical Infection Prevention Bundle Used? N/A Attestation: Case Date: 06/28/2024 I performed this procedure without the involvement of a resident. Dorinda Pastrana MD 06/28/2024 documented in this encounter Plan of Treatment Upcoming Encounters Date Type Department Care Team (Late st Contact Info) Description 08/25/2024 9:00 AM EDT Office Visit Hematology/Oncology at [address] [phone] Pia Cooper MD [facility] HEMATOLOGY [place] [address] Shayla Vuong APRN [facility] [place] [address] 08/25/2024 9:30 AM EDT Scheduled View Only Hematology/Oncology at [address] [phone] Ekta Womack RN 08/25/2024 9:30 AM EDT Infusion Hematology Oncology at [address] [phone] documented as of this encounter Procedures Procedure Name Priority Date/Time Associated Diagnosis Comments CHROMO REPORT ACQUIRED Routine 9:55 AM EDT SURGICAL PATHOLOGY REPORT Routine 2023 9:55 AM EDT SPECIMEN TO PATHOLOGY Routine 06/28/2024 9:55 AM EDT IMMUNOPHENOTYPING FLOW CYTOMETRY (BLOOD) Routine 06/28/2024 9:30 AM EDT CHROMO REPORT ACQUIRED Routine 9:30 AM EDT FLOW CYTOMETRY REPORT Routine 06/28/2024 9:30 AM EDT Biopsy/Excision Lymph Node Open Superficial (02049) Yes 06/28/2024 8:51 AM EDT Lymphoma, unspecified body region, unspecified lymphoma type BIOPSY OR EXCISION OF LYMPH NODE(S),OPEN,SUPERFICIAL Routine 06/28/2024 7:44 AM EDT Lymphoma, unspecified body region, unspecified lymphoma type documented in this encounter Results * chromo report acquired (06/28/2024 9:55 AM EDT) Cytogenetics Acquired Report Final Report ? [id number] Specimen Type: Fixed Tissue Specimen Condition: 1 [...] using dual-color, break-apart probes for BCL6/3q27 rearrangement ([employer] shows 1.0% of 100 cells with a BCL6 rearrangement signal pattern. This is within the acceptable reference limits (0-7.4%). Thus, there is no evidence for BCL6/3q27 gene rearrangement. Interphase FISH analysis using dual-color, break-apart probes for MYC/8q24 rearrangement ([employer] shows 0% of 100 cells with a MYC rearrangement signal pattern. This is within acceptable reference limits (0-6.0%). Thus, there is no evidence for MYC/8q24 gene rearrangement. Interphase FISH analysis using dual-color, dual-fusion probes for MYC-IGH/t(8;14)(q2 4;q32) ([employer] shows 0% of 100 cells with an MYC-IGH rearrangement signal pattern. This is within acceptable reference limits (0-3.0%). Thus, there is no evidence for MYC-IGH/t(8;14) gene rearrangement. Interphase FISH analysis using dual-color, dual-fusion probes for CCND1-IGH/t(11;14) (q13;q32) ([employer] shows 0% of 100 cells with [...] its performance characteristics were determined by the [facility] ([facility] Cytogenetics Laboratory as required by The Clinical [...] the test? s accuracy and precision. The [facility] Cytogenetics Laboratory is certified under the CLIA? 88 as qualified to perform high complexity clinical laboratory testing. Chromosome alterations outside the regions complementary to these DNA FISH probes will not be detected. 07.11.24 (Electronic Signature) Verified By: Cheri Ph.D., [facility], [employer] A Clinical Senior Sales Director/Mol ecular Motion Study Analyst [facility] 06/28/2024 9:55 AM EDT 06/30/2024 11:19 AM EDT Dorinda Pastrana MD HEMATOLOGY ORDERABLE S [facility] [place] [address] * (ABNORMAL) Surgical Pathology Report (06/28/2024 9:55 AM EDT) Surgical Pathology Report [id number] ? Location: SDP; SD39; A The signing pathologist has (i) examined the relevant preparation(s) for the specimen(s) and (ii) rendered or confirmed the diagnosis(es). . ?Surgical Pathology DIAGNOSIS A - Right submandibular mass - ??Diffuse large B-cell lymphoma- NOS (See Discussion) Electronically signed by: ?Shira SALAS, Henry Verified: ??06/30/2024 17:09 ??Hematopathologist Performed at: ??-[facility] Dept. of [place]ology, [place] [address] Aircraft Systems Technician: Jami Garza MD, AP, ??CLIA Certificate: [id number] SYNOPTIC THIS RESULT REQUIRES PHYSICIAN/A.P.P. FOLLOW UP DISCUSSION The submandibular mass contains a diffuse proliferation ? of large abnormal lymphocytes with vesicular nuclear chromatin, prominent nucleoli and ample cytoplasm. Lymph nodes submitted with the mass show partial involvement. ? Flow cytometry ([id number]) ?? showed a CD10+ kappa immunoglobulin light [...] diagnostic tests. Morphologic appearance : ?DLBCL like Xkiz-tl-nwzclh classification : ?? Germinal center BCl2/MYC double-expressor [...] lymphoid neoplasms . Blood . 2016. 127 (20):2810-3498. Troy CP et al . Blood 103:275-282 [...] flow cytometry. Tissue is submitted to cytogenetics. Napping Machine Operator sections in 5 cassettes labeled A1-A5. A1-A3: Napping Machine Operator fleshy tissue A4: Single bisected possible lymph node A5: Single bisected possible lymph node ??jnr(A) [facility] AP Specimen 06/28/2024 9:55 AM EDT Dorinda Pastrana MD PATHOLOGY/CYTOLOGY O RDERABLES [facility] [place] [address] * Specimen to Pathology (06/28/2024 9:55 AM EDT) AP Specimen 06/28/2024 9:55 AM EDT 06/28/2024 9:55 AM EDT Narrative [facility] - 06/28/2024 9:55 AM EDT Specimen requisition ordered. ??Separate Pathology report to follow Dorinda Pastrana MD PATHOLOGY/CYTOLOGY O RDERABLES Performing Organization Address City/[facility]/ZIP Co de Phone Number [facility] [place] [address] * chromo report acquired (06/28/2024 9:30 AM EDT) Cytogenetics Acquired Report Final Report ? [id number] Specimen Type: Lymph Node Specimen Condition: ~1.4cm, x1.4cm, x1.8cm, adequate Collection Date/Time: 06/28/2024 09:30 Received Date/Time: 06/28/2024 11:31 Indication: ??Lymphoma ---Results--- Please see the chromosome analysis scanned report in eD-H corresponding to this specimen. ??This report was completed by [facility] and is located in 'Chart Review' under the 'Media' tab. ??The document name is titled External Genetic Study. ---Karyotype--- See comments. ---Preparation-- - Culture Type: Other FISH Method: ??N/A ---Comments--- The specimen was referred to [facility] ([place], [place], Tel: ?? ) for cytogenetic analysis. ---Disclaimer--- Please note that the above is not a patient lab result and does not have an interpretative component. ??It is only provided to indicate the location of the final report in the EMR for this individual, which has the official interpretations. 08..24 (Electronic Signature) Verified By: Lab Review, Cytogenetics [facility] 06/28/2024 9:30 AM EDT 06/28/2024 11:31 AM EDT Dorinda Pastrana MD HEMATOLOGY ORDERABLE S Performing Organization Address City/[facility]/ZIP Co de Phone Number [facility] [place] [address] * Flow Cytometry Report (06/28/2024 9:30 AM EDT) Flow Cytometry Report [id number] ? Location: [facility]; A The signing pathologist has (i) examined the relevant preparation(s) for the specimen(s) and (ii) rendered or confirmed the diagnosis(es). . ?Flow Cytometry DIAGNOSIS Flow cytometry diagnosis: CD10+ ??kappa immunoglobulin light chain restricted B-cell population identified. see discussion Electronically signed by: ?Shira SALAS, Henry Verified: ??06/29/2024 14:16 ??Hematopathologist Performed at: ??-[facility] Dept. [place]ology, [place] [address] Aircraft Systems Technician: Jami Garza MD, FCAP, ??CLIA Certificate: [id number] DISCUSSION Cell viability was 84% as assessed [...] by the Clinical Flow Cytometry Laboratory at [facility]. It has not been cleared or [...] high complexity clinical laboratory testing. SPECIMEN PROCESSING [id number] Cells for immunophenotypic analysis were derived from right submandibular mass. CD45 vs side scatter gating was utilized to identify a lymphoid analysis region that comprises approximately 87-89% of all cells. The following markers were assessed: CD2, CD3, CD4, CD5, CD7, CD8, CD10, CD19, CD20, CD23, CD38, CD45, CD56, FMC-7, kappa light chain, and lambda light chain. CLINICAL INFORMATION adenopathy [facility] 06/28/2024 9:30 AM EDT Dorinda Pastrana MD PATHOLOGY/CYTOLOGY O RDERABLES Performing Organization Address [facility] [place] [address] * Immunophenotyping Flow Cytometry (06/28/2024 9:30 AM EDT) Immunophenotyping Flow See Comment [facility] Comment: When completed by the Pathologist, the Flow Cytometry Report ([id number]) will display under the Pathology Results section within eDH. Other Other / Unknown 06/28/2024 9 :30 AM EDT 06/28/2024 10:53 AM EDT Narrative Resulting Agency Comment Spec In Lab Dorinda Pastrana MD HEMATOLOGY ORDERABLE S Performing Organization Address [facility] [place] [address] documented in this encounter Visit Diagnoses Diagnosis Lymphoma, unspecified body region, unspecified lymphoma type Lymphoma, unspecified body region, unspecified lymphoma type documented in this encounter Administered Medications Inactive Administered Medications - up to 3 most recent administrations Medication Order MAR Action Action Date Dose Rate Site acetaminophen (Tylenol) tablet 650 mg 650 mg, Oral, EVERY 6 HOURS PRN, Starting on Fri06/28/24 at 1001, Until Fri06/28/24 at 1318, Pain, - Maximum dose of acetaminophen is 4,000 mg from all sources in 24 hours. - Unless otherwise specified, when ordered PRN for pain, acetaminophen should be given first if other PRN pain medications are ordered., Routine Given 06/28/2024 11:12 AM EDT 650 mg ibuprofen (Advil) tablet 600 mg 600 mg, Oral, EVERY 6 HOURS PRN, Starting on Fri06/28/24 at 1001, Until Fri06/28/24 at 1318, Pain, Administer orally with milk or food to minimize GI irritation. Maximum dose of 3,200 mg from all sources in 24 hours, Routine lidocaine-EPINEPHrine (1% - 1:100,000) injection PRN, Starting on Fri06/28/24 at 0921, Until Fri06/28/24 at 1318, Intra-Operative (Intra-Procedure), Routine Given 06/28/2024 9:21 AM EDT 7 mLs 19- Surgical Site documented in this encounter Active and Recently Administered Medications Times are shown in EDT. Continuous Medication Order 06/26/2024 06/27/2024 06/28/2024 lactated ringers infusion (CANCELED) 1,000 mL, at 100 mL/hr, Intravenous, CONTINUOUS, Starting on Fri06/28/24 at 0815, Until Fri06/28/24 at 1117, Day of Surgery (Day of Procedure) 0819 (New Bag - Prov ider: Dipika Erickson CRNA)0848 (Anesthesia Volume Adjustment - Provider: Dipika Erickson CRNA)0951 (Anesthesia Volume Adjustment - Provider: Dipika Erickson CRNA) PRN Medication Order 06/26/2024 06/27/2024 06/28/2024 acetaminophen (Tylenol) tablet 650 mg 650 mg, Oral, EVERY 6 HOURS PRN, Starting on Fri06/28/24 at 1001, Until Fri06/28/24 at 1318, Pain, - Maximum dose of acetaminophen is 4,000 mg from all sources in 24 hours. - Unless otherwise specified, when ordered PRN for pain, acetaminophen should be given first if other PRN pain medications are ordered., Routine 1112 (Given - Provid er: Michelle Delarosa RN) ibuprofen (Advil) tablet 600 mg 600 mg, Oral, EVERY 6 HOURS PRN, Starting on Fri06/28/24 at 1001, Until Fri06/28/24 at 1318, Pain, Administer orally with milk or food to minimize GI irritation. Maximum dose of 3,200 mg from all sources in 24 hours, Routine lidocaine-EPINEPHrine (1% - 1:100,000) injection (CANCELED) PRN, Starting on Fri06/28/24 at 0921, Until Fri06/28/24 at 1318, Intra-Operative (Intra-Procedure), Routine 0921 (Given - Provid er: Dorinda Pastrana MD) documented in this encounter Care Teams Check Cashier Relationship Specialty Start Date End Date Danie Connor DO [address] [place] [id number] PCP - General Family Medicine 06/04/24 documented as of this encounter
--- OUTSIDE RECORDS SUMMARY | 2024-08-11 20:36 | XMS_ITS | Encounter Summary ---
[place] [address] Care Team Providers Care Shell Trim Tool Setter Name Role Phone aDnie Connor DO Primary Care Provider [phone] Encounter Details Date Type Department Care Team (Late st Contact Info) Description 07/19/2024 Telephone Hematology [place] [phone] Laquita Borden RN Social History Tobacco Use Types Packs/Day Years Used Date Smoking Tobacco: Never Smokeless Tobacco: Never Alcohol Use Standard Drinks/Week Comments No 0 (1 standard drink = 0.6 oz pur e alcohol) [facility] Inpatient Questions Answer Date Recorded Prevent Contact [...] Encounter - Laquita Borden RN - 07/19/2024 1:24 PM EDT Message from private secretary: Brett's sister, Breana, called. Patient had a LN biopsy on 06/28 and yesterday his neck swelled up yesterday and is very tender. No fevers but she's afraid something is going on. Please give her a call at: [phone]. Caller: Jill Pineda Relationship: sister Clarified Two Patient Identifiers: [x] Reason For Call: see msg above. Assessment/Symptom Review (onset, location, duration, what makes it better or worse, pertinent positives and negatives): Pt had LN biopsy 06/28. 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 Yesterday pt started feeling pain at site and noticed 1/2 inch of redness and swelling. Pt is afebrile. Denies any discharge fromsite, denies chills, or any other symptoms of infection. Reviewed keeping site clean and dry, infection prevention with pt's sister, and she verbalizes understanding. Pt and sister are instructed to call office with with new or worsening signs of infectionincluding fever, increased redness or swelling at site, streaking, , or discharge from incision site. Review of Systems Related to Reason for Call: System POS NEG Not Applicable Head (ENT /Neuro) [] [x] [] Cardiac [] [x] [] Respiratory [] [x] [] GI [] [x] [] [] [x] [] Musculoskeletal [] [x] [] Integumentary [x] [] [] Mental Health [] [x] [] Select Specific Decision Support Tool Used: DH Standard or Protocol Name of Guideline/Protocol Used:Rash or Redness Disposition/Plan of Care: Follow home care directions Patient/Caregiver verbalizes understanding of plan of care: Yes Patient/Caregiver agrees with plan: Yes Advised patient/caregiver to: call office back for any new or worsening symptoms Patient/Caregiver demonstrates understanding via teach back: Yes documented in this encounter Plan of Treatment Upcoming Encounters Date Type Department Care Team (Late st Contact Info) Description 08/25/2024 9:00 AM EDT Office Visit Hematology/Oncology at [address] [phone] Pia Cooper MD [facility] [place] [address] Shayla Vuong, INSTRUCTIONAL TECHNOLOGY DIRECTOR [facility] [place] [address] 08/25/2024 9:30 AM EDT Scheduled View Only Hematology/Oncology at [address] [phone] Ekta Womack RN 08/25/2024 9:30 AM EDT Infusion Hematology Oncology at [address] [phone] documented as of this encounter Visit Diagnoses Not on filedocumented in this encounter Care Teams Shell Trim Tool Setter Relationship Specialty Start Date End Date Danie Connor DO [address] [place] [phone] PCP - General Family Medicine 06/04/24 documented as of this encounter
--- OUTSIDE RECORDS SUMMARY | 2024-08-11 20:36 | XMS_ITS | Encounter Summary ---
Author Organization [facility] [place] [address] Care Team Providers Care Lean Specialist Name Role Phone ConnorDanie willis Primary Care Provider [phone] Encounter Details Date Type Department Care Team (Late Contact Info) Description 06/24/2024 Orders Only Hematology [place] [address] Shayla Vuong APRN [facility] HEMATOLOGY [place] [address] Lymphoma, unspecified body region, unspecified lymphoma type [...] 9:00 AM EDT Office Visit Hematology/Oncology at [address] [phone] Pia Cooper MD [facility] HEMATOLOGY [place] [address] Shayla Vuong APRN [facility] HEMATOLOGY [place] [address] 08/25/2024 9:30 AM EDT Scheduled View Only Hematology/Oncology at [address] [phone] Ekta Womack RN 08/25/2024 9:30 AM EDT Infusion Hematology Oncology at [address] [phone] documented as of this encounter Visit Diagnoses Diagnosis Lymphoma, unspecified body region, unspecified lymphoma type documented in this encounter Care Teams Lean Specialist Relationship Specialty Start Date End Date Danie Connor DO [address] [place] [phone] PCP - General Family Medicine 06/04/24 documented as of this encounter
--- OUTSIDE RECORDS SUMMARY | 2024-08-11 20:36 | XMS_ITS | Encounter Summary ---
[place] [address] Care Team Providers Care County Bailiff Name Role Phone Geeta Danie Bustos Primary Care Provider [phone] Encounter Details Date Type Department Care Team (Latest Contact Info) Description 06/04/2024 10:13 AM EDT - 06/04/2024 11:59 PM EDT [place] [phone] Discharge Disposition: Home Social History Tobacco Use [...] 9:00 AM EDT Office Visit Hematology/Oncology at [address] [address] Pia Cooper MD [facility] DR HEMATOLOGY [place] [address] Shayla Vuong APRN [facility] DR HEMATOLOGY [place] [address] 08/25/2024 9:30 AM EDT Scheduled View Only Hematology/Oncology at [address] [phone] Ekta Womack RN 08/25/2024 9:30 AM EDT Infusion Hematology Oncology at [address] [phone] documented as of this encounter Procedures Procedure Name Priority Date/Time Associated Diagnosis Comments SURGICAL PATHOLOGY REPORT Routine 06/04/2024 10:13 AM EDT documented in this encounter Results * (ABNORMAL) Surgical Pathology Report (06/04/2024 10:13 AM EDT) Final Diagnosis [id number] ? Location: [facility] The signing pathologist has (i) examined the relevant preparation(s) for the specimen(s) and (ii) rendered or confirmed the diagnosis(es). . ?Surgical Pathology DIAGNOSIS CONSULTATION CASE Outside slide(s) labeled [id number], collection date 05/19/2024: Mass, adjacent to right submandibular gland, core biopsy : Atypical CD10+ ? Chronic lymphoproliferative disorder. see discussion Electronically signed by: ?Shira SALAS, Henry Verified: ??06/07/2024 9:50 ?? Hematopathologist Performed at: ??-[facility] of Pathology, [place] [address] Pin Machine Tender: Jami Garza MD, FCAP, ??CLIA Certificate: [id number] SYNOPTIC THIS RESULT REQUIRES PHYSICIAN/A.P.P. FOLLOW UP DISCUSSION A minor 0.2 cm biopsy contains a small benign fragment and a ??portion that shows sheets of large abnormal cells that are CD20+, Bcl2-, Bcl6+ with a ki67 index of 50%. 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 This may represent Follicular lymphoma ( with both low and high grade areas) or ??DLBCL. Adequate sampling/rebiopsy is recommended. ADDITIONAL STUDIES h1 SPECIMEN(S) SUBMITTED CONSULTATION CASE A - 11 slide(s) labeled [id number], collection date 05/19/2024. [id number] CARBON COPY: [facility] Surgical Pathology Department [facility], [facility], 2nd Floor [address] [place], [place] ??[address] CLINICAL INFORMATION Mass SPECIMEN PROCESSING [facility] ([facility]) pathology slide(s) are reviewed. Refer to Diagnosis and Specimen Submitted for specific case information. For the full text of the [facility] report(s) please refer to the Chart Review Media tab in the electronic health record ( ??eDH).(A) 06/07/2024 9:50 AM EDT [facility] Consult Case 06/04/2024 10:1 3 AM EDT 06/04/2024 10:13 AM EDT Brett Herr MD PATHOLOGY/CYTOLOGY ORDERABLES [facility] [place] [address] documented in this encounter Visit Diagnoses Not on filedocumented in this encounter Care Teams County Bailiff Relationship Specialty Start Date End Date Danie Connor DO [address] [place] [address] PCP - General Family Medicine 06/04/24 documented as of this encounter
--- OUTSIDE RECORDS SUMMARY | 2024-08-11 20:36 | XMS_ITS | Encounter Summary ---
Author Organization [facility] [place] [address] Care Team Providers Care E Commerce Director Name Role Phone Geeta Danie Bustos Primary Care Provider [phone] Encounter Details Date Type Department Care Team ([facility] Contact Info) Description 07/06/2024 Orders Only [place] [address] Shayla Vuong APRN [facility] DR HEMATOLOGY [place] [address] Encounter for monitoring cardiotoxic drug therapy; Encounter for echocardiogram before initiation of chemotherapy; 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 of multiple regions Social History Tobacco Use Types Packs/Day Years Used Date Smoking Tobacco: Never Smokeless Tobacco: Never Alcohol Use Standard Drinks/Week Comments No 0 (1 standard drink = 0.6 oz pur e alcohol) [facility] Inpatient Questions Answer Date Recorded Prevent Contact [...] Upcoming Encounters Date Type Department Care Team ([facility] Contact Info) Description 08/25/2024 9:00 AM EDT Office Visit Hematology/Oncology at [address] [phone] Pia Cooper MD [facility] DR HEMATOLOGY [place] [address] Shayla Vuong APRN [facility] HEMATOLOGY [place] [address] 08/25/2024 9:30 AM EDT Scheduled View Only Hematology/Oncology at [address] [phone] Ekta Womack RN 08/25/2024 9:30 AM EDT Infusion Hematology Oncology at [address] [phone] documented as of this encounter Visit Diagnoses Diagnosis Encounter for monitoring cardiotoxic drug therapy Encounter for therapeutic drug monitoring Encounter for echocardiogram before initiation of chemotherapy 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 of multiple regions documented in this encounter Care Teams E Commerce Director Relationship Specialty Start Date End Date Danie Connor DO [address] [place] [phone] PCP - General Family Medicine 06/04/24 documented as of this encounter
--- OUTSIDE RECORDS SUMMARY | 2024-08-11 20:36 | XMS_ITS | Encounter Summary ---
Author Organization formerly [place] [address] Care Team Providers Care Bucket Pusher Name Role Phone Geeta Danie Bustos Primary Care Provider [phone] Reason for Visit * Auth/Cert (Routine) Specialty Diagnoses / Procedures Referred By Kymberly t Referred To Contact Diagnoses Lymphoma, unspecified body region, unspecified lymphoma type right submandibular lymphadenopathy Procedures PRO BIOPSY/EXCISION LYMPH NODE OPEN SUPERFICIAL BIOPSY OR EXCISION OF LYMPH NODE(S), OPEN, SUPERFICIAL (WRVU 3.79) Doirnda Pastrana MD [facility] [place] [address] [facility] Referral ID Status Reason Start Date Expiration Date Visits Re quested Visits Authorized [id number] 1 1 Encounter Details Date Type Department Care Team (Late st Contact Info) Description 06/28/2024 8:49 AM EDT Anesthesia Event [place] [address] Abigail Anne MD [facility] [place] [address] Anesthesia Record Procedure Summary Procedure Name Responsible Anesthesiologist Anesthesia Start Time Anesthesia Stop Time BIOPSY OR EXCISION OF LYMPH NODE(S), OPEN, SUPERFICIAL (WRVU 3.79) (Right: Neck) Abigail Anne MD 06/28/24 0849 06/28/24 0957 Events Date Time Event Comment 06/28/2024 0849 Start 0850 0851 AN Verify 0851 An Start Data 0857 An Induction 0859 An Intubation 0900 Anesthesia Ready 0949 Extubation/LMA Out 0953 an stop data 0957 Recovery or ICU Handoff Goldie ent care was transferred to the destination unit staff after review of the patient's medical history, current anesthetic/surgical status and plan, according to the Provider Handoff Checklist. 0957 Stop Meds Name Total fentaNYL 100 mcg lidocaine IV 50 mg propofoL 300 mg PHENYLephrine 160 mcg ondansetron 4 mg dexAMETHasone 4 mg dexmedeTOMIDine 4 mcg/mL 20 mcg succinylcholine 100 mg ceFAZolin 2 g lactated ringers infusion 600 mL * Agents Name O2 Sevoflurane (et) * Blood No blood administrations on file. Lines, Drains, and Airways Type Details Placement Removal PIV 06/28/24; 08; [id number] catheter system; 20 gauge; median cubital vein (antecubital fossa), left; Anatomical Landmarks; distraction, tolerated well, appears comfortable; 06/28/24; 1117 06/28/24 0819 by Valentine Pa RN 06/28/24 111 by Michlele Delarosa, HUONG ETT Mask Ventilation: Ea sy (1); ETT Type: Cuffed, Oral; Mac Blade: 4; Notes: Asleep, Pre-O2, Stylette; Attempts: 1; Laryngoscopy Grade: 2; ETT Placement Verified By: Auscultation, Capnometry; Secured at Teeth: 23 cm; Inserted by: TITI GUERRERO; Removal Date: 06/28/24; Removal Time: 0949 06/28/24 0859 by Dipika Erickson CRNA 06/28/24 0949 by Dipika Erickson CRNA Incision 06/28/24; 0916; Righ t; neck; LDA not present upon assessment; 07/27/24 06/28/24 0916 by Fannie Kirk, RN 07/27/24 0000 by Dia Lizarraga RN documented in this encounter Social History Tobacco Use Types Packs/Day Years [...] on file documented as of this encounter OR Notes * Anesthesia Postprocedure Evaluation - Abigail Anne MD - 06/28/2024 12:02 PM EDT Department of Anesthesiology Post-procedure Note Patient: Brett Campos Procedure Summary Date: 06/28/24 Room / Location: [facility] OR [facility] MAIN OR Anesthesia Start: 848 Anesthesia Stop: 956 Procedure: BIOPSY OR EXCISION OF LYMPH NODE(S), OPEN, SUPERFICIAL (WRVU 3.79) (Right: Neck) Diagnosis: Lymphoma, unspecified body region, unspecified lymphoma type (right submandibular lymphadenopathy) Surgeons: Dorinda Pastrana MD Responsible Provider: Abigail Anne MD Anesthesia Type: general ASA Status: 2 All Anesthesia Providers: Anesthesiologist: Abigail Anne MD WEB CONSULTANT: Dipika Erickson CRNA Vitals Value Taken Time BP 101/64 06/28/24 1100 Temp 36 ??C (96.8 ??F) 06/28/24 0956 Pulse 76 06/28/24 1106 Resp 17 06/28/24 1106 SpO2 95 % 06/28/24 1107 Pain Level 3 06/28/24 1112 Vitals shown include unfiled device data. Patient Location: PACU/[facility] Level of Consciousness: Awake and Alert Pain Management: Satisfactory Analgesia PONV: None Cardiovascular Status: At Baseline and Hemodynamically Stable Respiratory Status: At Baseline and Room Air Postoperative Fluid Status: Intravascular EUvolemia Possible Anesthetic Complications: NONE apparent at time of evaluation Final Primary Anesthesia Type: General (The anesthetic type performed was the same as planned.) Comments: ABIGAIL ANNE MD * Anesthesia Preprocedure Evaluation - Abigail Anne MD - 06/28/2024 8:49 AM EDT Images from the original note were not included. Pre-Anesthesia Evaluation for: Brett Campos a 48 y.o. male. Procedure(s): BIOPSY OR EXCISION OF LYMPH NODE(S), OPEN, SUPERFICIAL (WRVU 3.79) Patient Active Problem List Diagnosis Date Noted ??? Seizure 11/20/2015 History reviewed. No pertinent past medical history. History reviewed. No pertinent surgical history. Social History Tobacco Use ??? Smoking status: Never ??? Smokeless tobacco: Never Substance Use Topics ??? Alcohol use: No Social History Substance and Sexual Activity Drug Use Yes ??? Types: Marijuana Comment: VAPE PEN DAILY No Known Allergies Medications: MAR and/or home medications have been reviewed. Physical Exam: Preprocedure Vitals Current as of 06/28/24 0849 BP: 124/75 Pulse: 75 Resp: 18 SpO2: 97 Temp: 36.8 ??C (98.2 ??F) Height: 170.2 cm (5' 7) (06/28/24) Weight: 90.8 kg (200 lb 3.2 oz) (06/28/24) BMI: 31.35 IBW: 66.1 kg (145 lb 12.2 oz) Last edited 06/28/24 0752 by EC Airway Assessment: Mallampati: II TM distance: >3 FB Neck ROM: full Cardiovascular Assessment: Rhythm: regular Rate: normal Pulmonary Assessment: unlabored breathing Dental Assessment: - normal exam Misc Assessment: IV access: Peripheral line Last Filed Perioperative Cognitive Screening None Anesthesia Plan: ASA 2 general, with a(n) intravenous induction 48 yo male for right submandibular lymph node biopsy. Suspicion for lymphoma. Hx seizure controlledwith lamictal. NPO, no recent illness, NKDA, OK to proceed. GETA, std monitors. Informed Consent: Anesthetic plan and risks discussed with patient. Plan discussed with WEB CONSULTANT. Anesthesia Screening documented in this encounter Miscellaneous Notes * Addendum Note - Abigail Anne MD - 06/28/2024 12:04 PM EDT Addendum created 06/28/24 1204 by Abigail Anne MD Clinical Note Signed documented in this encounter Plan of Treatment Upcoming Encounters Date Type Department Care Team (Late st Contact Info) Description 08/25/2024 9:00 AM EDT Office Visit Hematology/Oncology at [address] [phone] Pia Cooper MD [facility] [place] [address] Shayla Vuong APRN [facility] [place] [address] 08/25/2024 9:30 AM EDT Scheduled View Only Hematology/Oncology at [address] [phone] Ekta Womack RN 08/25/2024 9:30 AM EDT Infusion Hematology Oncology at [address] [phone] documented as of this encounter Visit Diagnoses Not on filedocumented in this encounter Administered Medications Inactive Administered Medications - up to 3 most recent administrations Medication Order MAR Action Action Date Dose Rate Site ceFAZolin (Ancef) (100 mg/mL) injection solution Intravenous, PRN, Starting on Fri06/28/24 at 0920, Until Fri06/28/24 at 0957, Anesthesia Intra-op, Routine Given 06/28/2024 9:20 AM EDT 2 g dexAMETHasone (Decadron) injection Intravenous, PRN, Starting on Fri06/28/24 at 0905, Until Fri06/28/24 at 0957, Anesthesia Intra-op, Routine Given 06/28/2024 9:05 AM EDT 4 mg dexmedeTOMIDine (Precedex) (4 mcg/mL) bolus injection (Anesthsia) Intravenous, PRN, Starting on Fri06/28/24 at 0856, Until Fri06/28/24 at 0957, Anesthesia Intra-op, Routine Given 06/28/2024 9:12 AM EDT 8 mcg Given 06/28/2024 8:57 AM EDT 12 mcg fentaNYL (pf) (50 mcg/mL) multi-dose injection Intravenous, PRN, Starting on Fri06/28/24 at 0915, Until Fri06/28/24 at 0957, Anesthesia Intra-op, Routine Given 06/28/2024 9:25 AM EDT 50 mcg Given 06/28/2024 9:15 AM EDT 50 mcg lactated ringers infusion 1,000 mL, at 100 mL/hr, Intravenous, CONTINUOUS, Starting on Fri06/28/24 at 0815, Until Fri06/28/24 at 1117, Day of Surgery (Day of Procedure) New Bag 06/28/2024 8:19 AM EDT lidocaine (pf) (Xylocaine) (20 mg/mL) 2% injection syringe Intravenous, PRN, Starting on Fri06/28/24 at 0856, Until Fri06/28/24 at 0957, Anesthesia Intra-op, Routine Given 06/28/2024 8:57 AM EDT 50 mg ondansetron (pf) (Zofran) (2 mg/mL) injection Intravenous, PRN, Starting on Fri06/28/24 at 0945, Until Fri06/28/24 at 0957, Anesthesia Intra-op, Routine Given 06/28/2024 9:45 AM EDT 4 mg PHENYLephrine in NS (PF) (ANYI-SYNEPHRINE) 0.8 mg/10 mL (80 mcg/mL) multi-dose injection Syringe Intravenous, PRN, Starting on Fri06/28/24 at 0945, Until Fri06/28/24 at 0957, Anesthesia Intra-op, Routine Given 06/28/2024 9:45 AM EDT 160 mcg propofoL (Diprivan) 10 mg/mL bolus injection (Anesthesia) Intravenous, PRN, Starting on Fri06/28/24 at 0857, Until Fri06/28/24 at 0957, Anesthesia Intra-op Given 06/28/2024 9:10 AM EDT 50 mg Given 06/28/2024 9:09 AM EDT 50 mg Given 06/28/2024 8:58 AM EDT 200 mg succinylcholine (Anectine;Quelicin) (20 mg/mL) injection Intravenous, PRN, Starting on Fri06/28/24 at 0857, Until Fri06/28/24 at 0957, Anesthesia Intra-op, Routine Given 06/28/2024 8:58 AM EDT 100 mg documented in this encounter Care Teams Bucket Pusher Relationship Specialty Start Date End Date Danie Connor DO [address] [place] [address] PCP - General Family Medicine 06/04/24 documented as of this encounter
--- OUTSIDE RECORDS SUMMARY | 2024-08-11 20:36 | XMS_ITS | Encounter Summary ---
Author Organization [facility] [place] [address] Care Team Providers Care Cap Sizer Name Role Phone Danie Connor DO Primary Care Provider [phone] Encounter Details Date Type Department Care Team (Late st Contact Info) Description 07/24/2024 Orders [place] [address] Donaldo Jha DO [facility] [address] [place] [address] Social History Tobacco Use Types Packs/Day Years Used Date Smoking Tobacco: Never Smokeless Tobacco: Never Alcohol Use Standard Drinks/Week Comments No 0 (1 standard drink = 0.6 oz pur e alcohol) [facility] Inpatient Questions Answer Date Recorded Prevent Contact [...] on file documented as of this encounter H&P Notes * Donaldo Jha DO - 07/24/2024 10:51 AM EDT Images from the original note were not included. INTERVENTIONAL RADIOLOGY FOCUSED H&P and PRE-PROCEDURE NOTE: PCP: Danie Connor DO Referring Provider: Dr. Herr Planned Procedure: Planned procedure: Port placement Procedure Indication: Need for durable venous access for chemotherapy. Procedure Request: Procedure request received through the Interventional Radiology [facility] order queue. Presenting Diagnosis/ Complaint: Brett Campos [...] (WRVU 3.79) performed by Dorinda Pastrana MD [facility] MAIN OR Medications: Current Outpatient Medications on [...] 9:00 AM EDT Office Visit Hematology/Oncology at [address] [phone] Pia Cooper MD [facility] DR HEMATOLOGY [place] [address] Shayla Vuong APRN [facility] HEMATOLOGY [place] [address] 08/25/2024 9:30 AM EDT Scheduled View Only Hematology/Oncology at [address] [phone] Ekta Womack RN 08/25/2024 9:30 AM EDT Infusion Hematology Oncology at [address] [phone] documented as of this encounter Visit Diagnoses Not on filedocumented in this encounter Care Teams Cap Sizer Relationship Specialty Start Date End Date Danie Connor DO [address] [place] [phone] PCP - General Family Medicine 06/04/24 documented as of this encounter
--- OUTSIDE RECORDS SUMMARY | 2024-08-11 20:36 | XMS_ITS | Encounter Summary ---
[place] [address] Care Team Providers Care Pantry Goods Maker Name Role Phone Danie Connor DO Primary Care Provider [phone] Reason for Visit * Diagnostic Test (STAT) - Closed Specialty Diagnoses / Procedures Referred By Contac t Referred To Contact Radiology Diagnoses Lymphoma, unspecified body region, unspecified lymphoma type Procedures NM PET CT Skull Base to Mid-thigh Brett Herr MD [facility] [address] [place] [address] [place] [address] Referral ID Status Reason Start Date Expiration Date V isits Requested Visits Authorized [id number] Closed Specialty Service Requested 06/11/2024 08/09/2024 1 1 Encounter Details Date Type Department Care Team (Latest Contact Info) Description 06/25/2024 6:15 AM EDT - 06/25/2024 11:59 PM EDT Hospital Encounter [place] [address] Brett Herr MD [facility] [address] [place] [address] Discharge Disposition: Home Social History [...] 9:00 AM EDT Office Visit Hematology/Oncology at [address] [phone] Pia Cooper MD [facility] [place] [address] Shayla Vuong APRN [facility] [place] [address] 08/25/2024 9:30 AM EDT Scheduled View Only Hematology/Oncology at [address] [phone] Ekta Womack RN 08/25/2024 9:30 AM EDT Infusion Hematology Oncology at [address] [phone] documented as of this encounter Procedures Procedure Name Priority Date/Time Associated Diagnosis Comments NM PET CT SKULL BASE TO MID-THIGH ([facility]) STAT 06/25/2024 7:48 AM EDT Lymphoma, unspecified body region, unspecified lymphoma type documented in this encounter Visit Diagnoses Not on filedocumented in this encounter Administered Medications Inactive Administered Medications - up to 3 most recent administrations Medication Order MAR Action Action Date Dose Rate Site fludeoxyglucose (F-18) FDG injection 0-20 mCi 0-20 mCi, Intravenous, ONCE PRN, 1 dose, Starting on Fri06/25/24 at 0639, Until Fri06/25/24 at 0634, Per Protocol, Radiology Contrast, Routine Given 06/25/2024 6:34 AM EDT 13.2 mCi Left Arm documented in this encounter Care Teams Pantry Goods Maker Relationship Specialty Start Date End Date Danie Connor DO [address] [place] [phone] PCP - General Family Medicine 06/04/24 documented as of this encounter
--- OUTSIDE RECORDS SUMMARY | 2024-08-11 20:36 | XMS_ITS | Encounter Summary ---
Author Organization [facility] [place] [address] Care Team Providers Care Petroleum Products Sales Representative Name Role Phone Danie Connor Primary Care Provider [phone] Encounter Details Date Type Department Care Team ([facility] Contact Info) Description 06/15/2024 Orders Only [place] [address] Dorinda Pastrana MD [facility] [place] [address] Lymphoma, unspecified body region, unspecified lymphoma type [...] AM EDT Office Visit Hematology/Oncology at [address] [phone] Pia Cooper MD [facility] DR [place] [address] Shayla Vuong, CAUSTIC OPERATOR [facility] [place] [address] 08/25/2024 9:30 AM EDT Scheduled View Only Hematology/Oncology at [address] [phone] Ekta Womack RN 08/25/2024 9:30 AM EDT Infusion Hematology Oncology at [address] [phone] documented as of this encounter Visit Diagnoses Diagnosis Lymphoma, unspecified body region, unspecified lymphoma type documented in this encounter Care Teams Petroleum Products Sales Representative Relationship Specialty Start Date End Date aDnie Connor DO [address] [place] [address] PCP - General Family Medicine 06/04/24 documented as of this encounter
--- OUTSIDE RECORDS SUMMARY | 2024-08-11 20:36 | XMS_ITS | Encounter Summary ---
Author Organization [facility] [place] [address] Care Team Providers Care Clockmaker Apprentice Name Role Phone ConnorDanie willis Primary Care Provider [phone] Encounter Details Date Type Department Care Team (Latest Contact Info) Description 07/16/2024 Travel Social History Tobacco Use Types Packs/Day [...] 9:00 AM EDT Office Visit Hematology/Oncology at [address] [phone] Pia Cooper MD [facility] [address] [place] [address] Shayla Vuong APRN [facility] [place] [address] 08/25/2024 9:30 AM EDT Scheduled View Only Hematology/Oncology at [address] [phone] Ekta Womack RN 08/25/2024 9:30 AM EDT Infusion Hematology Oncology at [address] [phone] documented as of this encounter Visit Diagnoses Not on filedocumented in this encounter Care Teams Clockmaker Apprentice Relationship Specialty Start Date End Date Danie Connor DO [address] [place] [address] PCP - General Family Medicine 06/04/24 documented as of this encounter
--- OUTSIDE RECORDS SUMMARY | 2024-08-11 20:36 | XMS_ITS | Encounter Summary ---
[place] [address] Care Team Providers Care Show Card Writer Name Role Phone Geeta Danie Bustos Primary Care Provider [phone] Reason for Visit * Reason Onset Date Comments Disability Paperwork 06/15/2024 Encounter Details Date Type Department Care Team ([facility] Contact Info) Description 06/15/2024 Telephone Hematology [place] [phone] Yasmine Styles Disability Paperwork Social History Tobacco Use Types Packs/Day Years [...] encounter Miscellaneous Notes * Telephone Encounter - Yasmine Styles - 06/15/2024 10:00 AM EDT FMLA FMLA form completed. Pending provider review and signature. 06/23/24: Completed copy sent to patient via portal. Copy scanned to chart documented in this encounter Plan of Treatment Upcoming Encounters Date Type Department Care Team (Late Contact Info) Description 08/25/2024 9:00 AM EDT Office Visit Hematology/Oncology at [address] [phone] Pia Cooper MD [facility] [place] [address] Shayla Vuong APRN [facility] [place] [address] 08/25/2024 9:30 AM EDT Scheduled View Only Hematology/Oncology at [address] [phone] Ekta Womack RN 08/25/2024 9:30 AM EDT Infusion Hematology Oncology at [address] [phone] documented as of this encounter Visit Diagnoses Not on filedocumented in this encounter Care Teams Show Card Writer Relationship Specialty Start Date End Date Danie Connor DO [address] [place] [phone] PCP - General Family Medicine 06/04/24 documented as of this encounter
--- OUTSIDE RECORDS SUMMARY | 2024-08-11 20:36 | XMS_ITS | Encounter Summary ---
[place] [address] Care Team Providers Care Info Analyst Name Role Phone Jose Manuel Kimble MD Primary Care Provider [phone] Reason for Visit * Reason Onset Date Comments Other 07/20/2020 Encounter Details Date Type Department Care Team (Late st Contact Info) Description 07/20/2020 [place] [phone] Kwabena Garcia MD [facility] [place] [address] Other Social History Tobacco Use Types Packs/Day Years [...] encounter Miscellaneous Notes * Telephone Encounter - Enedina Stephens RN - 07/20/2020 8:58 AM EDT Called and left message for Faina Becerra APRN with [facility] letting them know that Dr. Garcia wouldbe out of the office until Friday so there would be a delay in response. [facility] verbalized understanding and stated message would be passed on. * Telephone Encounter - Patricia Francis - 07/20/2020 8:26 AM EDT Call Center / Early Childhood Educator Aide Message - General Issue Call Provider patient sees in Clinic: Dr. Garcia Caller and relationship (if other than patient-full name): Faina East APRN - Pt's PCP at [facility] Call back number: [phone] Ok to leave a message: yes Reason for call: Faina East, pt's PCP, called stating pt has a complex epilepsy history and she has a few questions about managing pt's depression and memory loss. Please call Faina back. Disposition of Call (choose one and remove others) ??? Routine Message sent to the Nurse: documented in this encounter Plan of Treatment Upcoming Encounters Date Type Department Care Team (Late st Contact Info) Description 08/25/2024 9:00 AM EDT Office Visit Hematology/Oncology at [address] [phone] Pia Cooper MD [facility] DR [place] [address] Shayla Vuong APRN [facility] DR [place] [address] 08/25/2024 9:30 AM EDT Scheduled View Only Hematology/Oncology at [address] [phone] Ekta Womack RN 08/25/2024 9:30 AM EDT Infusion Hematology Oncology at [address] [phone] documented as of this encounter Visit Diagnoses Not on filedocumented in this encounter Care Teams Info Analyst Relationship Specialty Start Date End Date Jose Manuel Kimble MD PCP - General Family Medicine 09/20/15 09/29/23 documented as of this encounter
--- OUTSIDE RECORDS SUMMARY | 2024-08-11 20:36 | XMS_ITS | Encounter Summary ---
[place] [address] Care Team Providers Care Recreational Aide Name Role Phone Danie Connor DO Primary Care Provider [phone] Reason for Referral * Diagnostic Test (STAT) - Closed Specialty Diagnoses / Procedures Referred By Contac t Referred To Contact Radiology Diagnoses 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 of multiple regions Procedures IR Mediport Placement Brett Herr MD [facility] DR HEMATOLOGY [place] [address] [facility] [place] [address] Referral ID Status Reason Start Date Expiration Date V isits Requested Visits Authorized [id number] Closed Specialty Service Requested 07/23/2024 01/23/2026 1 1 Reason for Visit * Reason Comments Follow-up Encounter Details Date Type Department Care Team (Late st Contact Info) Description 07/23/2024 4:00 PM EDT Office Visit Hematology [place] [address] Brett Herr MD [facility] DR HEMATOLOGY [place] [address] 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 [...] Sign Reading Time Taken Comments Blood Pressure 140/93 07/23/2024 3:55 PM EDT Pulse 69 07/23/2024 3:55 PM EDT Temperature 36.4 ??C (97.5 ??F) 07/23/2024 3:55 PM ED T Respiratory Rate 18 07/23/2024 3:55 PM EDT Oxygen Saturation 100% 07/23/2024 3:55 PM EDT Inhaled Oxygen Concentration - - Weight 89.8 kg (197 lb 15.6 oz) 07/23/2024 3:55 PM EDT Height 170.2 cm (5' 7.01) 07/23/2024 3:55 PM ED T Body Mass Index 31 07/23/2024 3:55 PM EDT documented in this encounter Progress Notes * Dimitri Rhodes MD - 07/23/2024 4:00 PM EDT OUTPATIENT HEMATOLOGY/ ONCOLOGY CONSULTATION HISTORY PRESENT [...] identified in the chest, abdomen or pelvis. Treatment Course pending INTERIM HISTORY Brett presents for follow up today. Since our last visit, he has had a PET scan (as above), a TTE showing an EF 56%, and an excisional biopsy showing DLBCL. He states that he is doing well overall. Only symptoms is some swelling and discomfort at site of his submandibular mass biopsy. No bleeding or discharge from that site or erythema or signs of infection. No other symptoms at this time. Denies fever, chills, night sweats, n/v/d, SOB, HAMM, CP, abdominal pain, fatigue, rash. 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 Vimpat 200 mg Tablet Take 1/2 (one-half) tablet by mouth twice daily Yes lamoTRIgine (LaMICtal) 200 mg Tablet Take 1 tablet by mouth 2 times daily. Yes PAST MEDICAL HISTORY- reviewed Patient Active Problem List Diagnosis Code Seizure R56.9 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 of multiple regions C83.38 COMPREHENSIVE REVIEW OF SYSTEMS Besides what is mentioned in the HPI, all other systems are negative PHYSICAL EXAMINATION Patient Vitals for the past 24 hrs: Temp Pulse Resp BP SpO2 07/23/24 1555 36.4 ??C (97.5 ??F) 69 18 (!) 140/93 100 % Constitutional/General: well-appearing, NAD HEENT: anicteric sclera Neck/Thyroid: mild submandibular swelling on right at site of biopsy Lungs: CTAB, no W/R/C Heart: RRR, S1/S2 present, no murmurs/rubs/gallops Abdomen: +BS, soft, nondistended, nontender to palpation, no masses or organomegaly Ext: no edema Neurologic: moving all extremities spontaneously LABORATORY EVALUATION No results found for this [...] we plan to start systemic therapy with either RCHOP or Galo-R-CHP. We plan topresent his case at our lymphoma tumor board regarding the utility of radiation in his case. Anticipate overall either 6 cycles of systemic therapy or a truncated systemic therapy with addition of radiation. Will plan for Mediport placement and chemotherapy thereafter as soon as possible. Will plan for his care to be transferred to [facility]. Plan - Mediport - Chemotherapy (RCHOP or Galo-R-CHP) as soon as possible - Transfer of care to [facility]. Patient seen and discussed with Dr. Herr. Dimitri Rhodes MD Hematology/Oncology Fellow documented in this encounter Plan of Treatment Upcoming Encounters Date Type Department Care Team (Late st Contact Info) Description 08/25/2024 9:00 AM EDT Office Visit Hematology/Oncology at [address] [phone] Pia Cooper MD [facility] HEMATOLOGY [place] [address] Shayla Vuong APRN [facility] HEMATOLOGY [place] [address] 08/25/2024 9:30 AM EDT Scheduled View Only Hematology/Oncology at [address] [phone] Ekta Womack RN 08/25/2024 9:30 AM EDT Infusion Hematology Oncology at [address] [phone] documented as of this encounter Results * IR Mediport Placement (07/27/2024 9:06 AM EDT) Anatomical Region Laterality Modality X-Ray Angiograph y Narrative 07/27/2024 10:39 AM EDT Interventional Radiology Procedure Note Procedure: Chest port implant Indication: Diffuse large B-cell lymphoma, durable prison central venous access for chemotherapy Procedure summary: [...] junction. The port may be used immediately. local operator: Gutierrez Skinner PA-C. Present during the intraservice time as documented by the interventional radiology nurse. Attending of record: Shadi Pretty DO. I was not present 07/27/2024 Brett Herr MD IMG IR ORDERABLES documented in this encounter Visit Diagnoses Diagnosis 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 of multiple regions 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 of multiple regions documented in this encounter Care Teams Recreational Aide Relationship Specialty Start Date End Date Danie Connor DO [address] [place] [address] PCP - General Family Medicine 06/04/24 documented as of this encounter
--- OUTSIDE RECORDS SUMMARY | 2024-08-11 20:36 | XMS_ITS | Encounter Summary ---
Author Organization [facility] [place] [address] Care Team Providers Care Paid Search Manager Name Role Phone Unknown Primary Care Provider Unavailabl e Encounter Details Date Type Department Care Team (Late Contact Info) Description 05/19/2024 1:00 PM EDT Ancillary Procedure [place] [phone] [place] Medina Social History Tobacco Use Types Packs/Day Years [...] AM EDT Office Visit Hematology/Oncology at [address] [phone] Pia Cooper MD [facility] [place] [address] Shayla Vuong APRN [facility] [place] [address] 08/25/2024 9:30 AM EDT Scheduled View Only Hematology/Oncology at [address] [phone] Ekta Womack RN 08/25/2024 9:30 AM EDT Infusion Hematology Oncology at [address] [phone] documented as of this encounter Procedures Procedure Name Priority Date/Time Associated Diagnosis Comments FILM LIBRARY STORAGE ONLY ULTRASOUND STUDY Routine 05/19/2024 1:00 PM EDT documented in this encounter Results * Film Library- Storage Only Ultrasound Study (05/19/2024 1:00 PM EDT) 05/28/2024 5:56 AM EDT Narrative LAM - 05/28/2024 5:56 AM EDT This exam is auto-finalizing. It's purpose is for storage only. [place] Medina Lisa FILM LIBRARY ORD ERABLES Performing Organization Address City/State/[facility] Co de Phone Number [place], [place] documented in this encounter Visit Diagnoses Not on filedocumented in this encounter Care Teams Paid Search Manager Relationship Specialty Start Date End Date Unknown None PCP - General 09/30/23 06/03/24 documented as of this encounter
--- OUTSIDE RECORDS SUMMARY | 2024-08-11 20:36 | XMS_ITS | Encounter Summary ---
Author Organization [facility] [place] [address] Care Team Providers Care Sponge Press Operator Name Role Phone Jose Manuel Kimble MD Primary Care Provider [phone] Reason for Visit * Reason Onset Date Comments TeleHealth 03/20/2021 Encounter Details Date Type Department Care Team ([facility] st Contact Info) Description 03/20/2021 Telephone [place] [phone] Heydi Sanchez MD [facility] [place] [address] TeleHealth Social History Tobacco Use Types Packs/Day [...] encounter Miscellaneous Notes * Telephone Encounter - Robyn Alanis - 03/20/2021 3:14 PM EDT Tried calling patient to verify preference for upcoming telehealth visit. Please update the patient's preferred method (email or text) in the interactive face sheet and thenupdate the appointment note to read Email link or Text Link at the beginning of the appointment note. Please send eDH chat with patient's record attached and a note stating zoom link needed to Robyn Alanis. documented in this encounter Plan of Treatment Upcoming Encounters Date Type Department Care Team (Late st Contact Info) Description 08/25/2024 9:00 AM EDT Office Visit Hematology/Oncology at [address] [phone] Pia Cooper MD [facility] HEMATOLOGY [place] [address] Shayla Vuong, CLEMENTE [facility] HEMATOLOGY [place] [address] 08/25/2024 9:30 AM EDT Scheduled View Only Hematology/Oncology at [address] [phone] Ekta Womack RN 08/25/2024 9:30 AM EDT Infusion Hematology Oncology at [address] [phone] documented as of this encounter Visit Diagnoses Not on filedocumented in this encounter Care Teams Sponge Press Operator Relationship Specialty Start Date End Date Jose Manuel Kimble MD PCP - General Family Medicine 09/20/15 09/29/23 documented as of this encounter
--- OUTSIDE RECORDS SUMMARY | 2024-08-11 20:36 | XMS_ITS | Encounter Summary ---
Author Organization [facility] [place] [address] Care Team Providers Care Trim Mounter Name Role Phone Geeta Danie Bustos Primary Care Provider + [phone] Reason for Visit * Auth/Cert (Routine) Specialty Diagnoses / Procedures Referred By Kymberly t Referred To Contact Diagnoses Lymphoma, unspecified body region, unspecified lymphoma type right submandibular lymphadenopathy Procedures PRO BIOPSY/EXCISION LYMPH NODE OPEN SUPERFICIAL BIOPSY OR EXCISION OF LYMPH NODE(S), OPEN, SUPERFICIAL (WRVU 3.79) Dorinda Pastrana MD [facility] [place] [address] [place] [address] [facility] Referral ID Status Reason Start Date Expiration Date Visits Re quested Visits Authorized [id number] 1 1 Encounter Details Date Type Department Care Team (Latest Contact Info) Description 06/28/2024 7:24 AM EDT - 06/28/2024 11:18 AM EDT Hospital Encounter [place] [address] Dorinda Pastrana MD [facility] [place] [address] [place] [address] Lymphoma, unspecified body region, unspecified lymphoma type [...] need to not be at work until 83. OK to shower in 24 hours, the steri strips on your incision will fall off on their own. Resume a regular diet. Some swelling along the incision is normal for the next few weeks, but notify Dr. Pastrana if you feel that there is fluid or some other collection under the skin. Call Dr. Pastrana's office with any questions or concerns: [phone] documented in this encounter Medications at Time [...] Pastrana MD - 06/28/2024 9:16 AM EDT [facility] Operative Note Patient Name: Brett Campos : [id number] MR#: [id number] Case Date: 06/28/2024 Surgeon: Surgeons and Role: [...] This was injected with 1% lidocaine with [id number] epinephrine. Incision was made and subplatysmal flap [...] AM EDT Office Visit Hematology/Oncology at [address] [phone] Pia Cooper MD [facility] [address] [place] [address] Shayla Vuong APRN [facility] [place] [address] 08/25/2024 9:30 AM EDT Scheduled View Only Hematology/Oncology at [address] [phone] Ekta Womack RN 08/25/2024 9:30 AM EDT Infusion Hematology Oncology at [address] [phone] documented as of this encounter [...] AM EDT Biopsy/Excision Lymph Node Open Superficial (45133) Yes 06/28/2024 8:51 AM EDT Lymphoma, unspecified body region, unspecified lymphoma type BIOPSY OR EXCISION OF LYMPH NODE(S),OPEN,SUPERFICIAL Routine 06/28/2024 7:44 AM EDT Lymphoma, unspecified body region, unspecified lymphoma type documented in this encounter Results * chromo report acquired (06/28/2024 9:55 AM EDT) Cytogenetics Acquired Report Final Report ? [id number] Specimen Type: Fixed Tissue Specimen Condition: 1 [...] using dual-color, break-apart probes for BCL6/3q27 rearrangement ([employer] shows 1.0% of 100 cells with a BCL6 rearrangement signal pattern. This is within the acceptable reference limits (0-7.4%). Thus, there is no evidence for BCL6/3q27 gene rearrangement. Interphase FISH analysis using dual-color, break-apart probes for MYC/8q24 rearrangement ([employer] shows 0% of 100 cells with a MYC rearrangement signal pattern. This is within acceptable reference limits (0-6.0%). Thus, there is no evidence for MYC/8q24 gene rearrangement. Interphase FISH analysis using dual-color, dual-fusion probes for MYC-IGH/t(8;14)(q2 4;q32) ([employer] shows 0% of 100 cells with an MYC-IGH rearrangement signal pattern. This is within acceptable reference limits (0-3.0%). Thus, there is no evidence for MYC-IGH/t(8;14) gene rearrangement. Interphase FISH analysis using dual-color, dual-fusion probes for CCND1-IGH/t(11;14) (q13;q32) ([employer] shows 0% of 100 cells with [...] its performance characteristics were determined by the [facility] ([facility]) Cytogenetics Laboratory as required by The Clinical [...] the test? s accuracy and precision. The [facility] Cytogenetics Laboratory is certified under the CLIA? 88 as qualified to perform high complexity clinical laboratory testing. Chromosome alterations outside the regions complementary to these DNA FISH probes will not be detected. 07.11.24 (Electronic Signature) Verified By: Cheri Ph.D., [facility], [facility] A Clinical Gristmiller/Mol ecular Bowling Ball Patcher [facility] 06/28/2024 9:55 AM EDT 06/30/2024 11:19 AM EDT Dorinda Pastrana MD HEMATOLOGY ORDERABLE S [facility] [place] [address] * (ABNORMAL) Surgical Pathology Report (06/28/2024 9:55 AM EDT) Surgical Pathology Report [id number] ? Location: SDP; AR39; A The signing pathologist has (i) examined the relevant preparation(s) for the specimen(s) and (ii) rendered or confirmed the diagnosis(es). . ?Surgical Pathology DIAGNOSIS A - Right submandibular mass - ??Diffuse large B-cell lymphoma- NOS (See Discussion) Electronically signed by: ?Shira SALAS, Henry Verified: ??06/30/2024 17:09 ??Hematopathologist Performed at: ??-[facility] Dept. of Pathology, [place] [address] Hematology Supervisor: Jami Garza MD, [facility], ??CLIA Certificate: [id number] SYNOPTIC THIS RESULT REQUIRES PHYSICIAN/A.P.P. FOLLOW UP DISCUSSION The submandibular mass contains a diffuse proliferation ? of large abnormal lymphocytes with vesicular nuclear chromatin, prominent nucleoli and ample cytoplasm. Lymph nodes submitted with the mass show partial involvement. ? Flow cytometry ([id number]) ?? showed a CD10+ kappa immunoglobulin light [...] diagnostic tests. Morphologic appearance : ?DLBCL like Qhgo-qv-gzyvcs classification : ?? Germinal center BCl2/MYC double-expressor [...] lymphoid neoplasms . Blood . 2016. 127 (20):0791-7155. Troy CP et al . Blood 103:275-282 [...] flow cytometry. Tissue is submitted to cytogenetics. Card Sorter sections in 5 cassettes labeled A1-A5. A1-A3: Card Sorter fleshy tissue A4: Single bisected possible lymph node A5: Single bisected possible lymph node ??jnr(A) [facility] AP Specimen 06/28/2024 9:55 AM EDT Dorinda Pastrana MD PATHOLOGY/CYTOLOGY O RDERABLES [facility] [place] [address] * Specimen to Pathology (06/28/2024 9:55 AM EDT) AP Specimen 06/28/2024 9:55 AM EDT 06/28/2024 9:55 AM EDT Narrative [facility] - 06/28/2024 9:55 AM EDT Specimen requisition ordered. ??Separate Pathology report to follow Dorinda Pastrana MD PATHOLOGY/CYTOLOGY O RDERABLES Performing Organization Address [facility]/ZIP Co de Phone Number [facility] [place] [address] * chromo report acquired (06/28/2024 9:30 AM EDT) [facility] Cytogenetics Acquired Report Final Report ? [id number] Specimen Type: Lymph Node Specimen Condition: ~1.4cm, x1.4cm, x1.8cm, adequate Collection Date/Time: 06/28/2024 09:30 Received Date/Time: 06/28/2024 11:31 Indication: ??Lymphoma ---Results--- Please see the chromosome analysis scanned report in eD-H corresponding to this specimen. ??This report was completed by [facility] and is located in 'Chart Review' under the 'Media' tab. ??The document name is titled External Genetic Study. ---Karyotype--- See comments. ---Preparation-- - Culture Type: Other FISH Method: ??N/A ---Comments--- The specimen was referred to [facility] ([place], [place], Tel: ?? ) for cytogenetic analysis. ---Disclaimer--- Please note that the above is not a patient lab result and does not have an interpretative component. ??It is only provided to indicate the location of the final report in the EMR for this individual, which has the official interpretations. 08.24 (Electronic Signature) Verified By: Lab Review, Cytogenetics [facility] 06/28/2024 9:30 AM EDT 06/28/2024 11:31 AM EDT Dorinda Pastrana MD HEMATOLOGY ORDERABLE S [facility] [place] [address] * Flow Cytometry Report (06/28/2024 9:30 AM EDT) [facility] Flow Cytometry Report [id number] ? Location: [facility]; [facility]; A The signing pathologist has (i) examined the relevant preparation(s) for the specimen(s) and (ii) rendered or confirmed the diagnosis(es). . ?Flow Cytometry DIAGNOSIS Flow cytometry diagnosis: CD10+ ??kappa immunoglobulin light chain restricted B-cell population identified. see discussion Electronically signed by: ?Shira SALAS, Henry Verified: ??06/29/2024 14:16 ??Hematopathologist Performed at: ??-[facility] Dept. of Pathology, [place] [address] Hematology Supervisor: Jami Garza MD, FCAP, ??CLIA Certificate: [id number] DISCUSSION Cell viability was 84% as assessed [...] by the Clinical Flow Cytometry Laboratory at [facility]. It has not been cleared or [...] high complexity clinical laboratory testing. SPECIMEN PROCESSING [id number] Cells for immunophenotypic analysis were derived from right submandibular mass. CD45 vs side scatter gating was utilized to identify a lymphoid analysis region that comprises approximately 87-89% of all cells. The following markers were assessed: CD2, CD3, CD4, CD5, CD7, CD8, CD10, CD19, CD20, CD23, CD38, CD45, CD56, FMC-7, kappa light chain, and lambda light chain. CLINICAL INFORMATION adenopathy [facility] 06/28/2024 9:30 AM EDT Dorinda Pastrana MD PATHOLOGY/CYTOLOGY O RDERABLES Performing Organization Address [facility] [place] [address] * Immunophenotyping Flow Cytometry (06/28/2024 9:30 AM EDT) Immunophenotyping Flow See Comment [facility] Comment: When completed by the Pathologist, the Flow Cytometry Report ([id number]) will display under the Pathology Results section within eD. Other Other / Unknown 06/28/2024 9 :30 AM EDT 06/28/2024 10:53 AM EDT Narrative Resulting Agency Comment Spec In Lab Dorinda Pastrana MD HEMATOLOGY ORDERABLE S Performing Organization Address [facility] [place] [address] documented in this encounter Visit Diagnoses Diagnosis [...] from all sources in 24 hours, Routine documented in this encounter Active and Recently [...] MD) documented in this encounter Care Teams Trim Mounter Relationship Specialty Start Date End Date Danie Connor DO [address] [place] [phone] PCP - General Family Medicine 06/04/24 documented as of this encounter
--- OUTSIDE RECORDS SUMMARY | 2024-08-11 20:36 | XMS_ITS | Encounter Summary ---
Author Organization [facility] [place] [address] Care Team Providers Care Assistance Representative Name Role Phone ConnorDanie willis Primary Care Provider [phone] Encounter Details Date Type Department Care Team (Latest Contact Info) Description 06/11/2024 10:15 AM EDT Laboratory Appointment Lab [address] [place] [phone] Lymphoma, unspecified body region, unspecified lymphoma type [...] AM EDT Office Visit Hematology/Oncology at [address] [phone] Pia Cooper MD [facility] [address] [place] [address] Shayla Vuong APRN [facility] [place] [address] 08/25/2024 9:30 AM EDT Scheduled View Only Hematology/Oncology at [address] [phone] Ekta Womack RN 08/25/2024 9:30 AM EDT Infusion Hematology Oncology at [address] [phone] documented as of this encounter Procedures Procedure Name Priority Date/Time Associated Diagnosis Comments HEMOGRAM Routine 06/11/2024 10:10 AM EDT Lymphoma, unspecified body region, unspecified lymphoma type DIFFERENTIAL, AUTOMATED Routine 06/11/2024 10:10 AM EDT Lymphoma, unspecified body region, unspecified lymphoma type HEPATITIS C ANTIBODY Routine 06/11/2024 10:10 AM EDT Lymphoma, unspecified body region, unspecified lymphoma type HEPATITIS B CORE ANTIBODY, TOTAL Routine 06/11/2024 10:10 AM EDT Lymphoma, unspecified body region, unspecified lymphoma type HIV SCREEN, 4TH GENERATION ([facility]/CGP/APD/NLH) Routine 06/11/2024 10:10 AM EDT Lymphoma, unspecified [...] type documented in this encounter Results * Differential, Automated (06/11/2024 10:10 AM EDT) Pathologist [facility] Neutrophil % 61.9 % [facility] Neutrophil Absolute 3.46 1.70 - 6.10 x10(3)/[facility] LABORATORY Lymph % 26.3 % [facility] Lymphocytes Abs 1.5 0.9 - 3.2 x10(3)/[facility] LABORATORY Monocyte % 8.1 % [facility] Monocyte Abs 0.4 0.3 - 0.9 x10(3)/[facility] LABORATORY Eos % 2.5 % [facility] Eosinophils Abs 0.1 0.0 - 0.4 x10(3)/[facility] LABORATORY Basophil % 0.7 % [facility] Baso Absolute 0.0 0.0 - 0.1 x10(3)/[facility] LABORATORY Immature Gran % 0.50 % [facility] Comment: Immature granulocytes(IG's)percentage and absolute count will include metamyelocytes, myelocytes, and promyelocytes. Blood smears from CBCs yielding IG's will be scanned manually for concordance. If this scan disagrees with the automated IG or if promyelocytes are noted, a manual differential will be performed. Immature Gran Absolute 0.03 0.00 - 0.04 x10(3)/[facility] LABORATORY Blood 06/11/2024 10:1 0 AM EDT 06/11/2024 10:24 AM EDT Narrative Resulting Agency Comment Spec In Lab Brett Herr MD HEMATOLOGY ORDERAB LES [facility] [place] [address] * Hemogram (06/11/2024 10:10 AM EDT) [facility] White Blood Cell 5.6 4.0 - 9.5 x10(3)/[facility] LABORATORY Red Blood Cell 4.90 4.58 - 5.54 x10(6)/[facility] LABORATORY Hemoglobin 14.9 13.7 - 16.5 g/dL [facility] Hematocrit 43.0 40.5 - 48.5 % [facility] Mean Cell Volume 87.8 82.9 - 93.1 [facility] LABORATORY Mean Cell Hemoglobin 30.4 27.5 - 32.1 pg [facility] Mean Cell Hemoglobin Concentration 34.7 32.0 - 35.7 g/dL [facility] Platelet 227 145 - 357 x10(3)/[facility] LABORATORY RDW Standard Deviation 41.3 36.0 - 45.0 [facility]ATORY RDW coefficient of variation 12.9 11.4 - 13.8 % [facility] Mean Platelet Volume 9.4 7.6 - 12.9 [facility] LABORATORY NRBC% auto 0.0 % [facility] NRBC Absolute 0.000 0.000 - 0.000 x10(3)/[facility] LABORATORY Blood 06/11/2024 10:1 0 AM EDT 06/11/2024 10:24 AM EDT Narrative Resulting Agency Comment Spec In Lab Brett Herr MD HEMATOLOGY ORDERAB LES [facility] [place] [address] * Comprehensive metabolic panel (non-fasting) (06/11/2024 10:10 AM EDT) Glucose 94 65 - 199 mg/dL [facility] Comment:Diabetes: >=200 mg/d L plus symptoms Blood Urea Nitrogen 11 10 - 20 mg/dL [facility] Creatinine 0.94 0.80 - 1.50 mg/dL [facility] Sodium 140 135 - 145 mmol/L [facility] Potassium 4.1 3.5 - 5.0 mmol/L [facility] Comment: Please note: ??Patients with WBC >100,000 may have falsely elevated Potassium levels. ??For accurate Potassium quantification in these patients send serum separator tube (gold top) for subsequent determinations. ??Contact the Clinical Chemistry Laboratory if there are any questions. Chloride 104 98 - 107 mmol/L [facility] Carbon Dioxide 27 22 - 31 mmol/L [facility] Anion Gap 9 5 - 15 mmol/L [facility] Calcium 9.3 8.5 - 10.5 mg/dL [facility] Protein, Total 7.0 6.1 - 8.0 g/dL [facility] Albumin 4.4 3.2 - 5.2 g/dL [facility] Aspartate Aminotransferase 14 0 - 39 unit/L [facility] Alanine Aminotransferase 23 0 - 55 unit/L [facility] Alkaline Phosphatase 61 40 - 130 unit/L [facility] Bilirubin, Total 0.6 0.2 - 1.3 mg/dL [facility] Est Glomerular Filtration Rate 99 >=60 mL/min/1. 73 m?? [facility] Comment: This patient's estimated [...] Lab Brett Herr MD CHEMISTRY ORDERABL ES [facility] [place] [address] * HIV Screen, 4th Generation ([facility]/CGP/APD/NLH) (06/11/2024 10:10 AM EDT) HIV Ab/Ag Screen Negative Negative [facility] Comment: This 4th Generation [...] HIV Comment Low Risk of HIV Infection [facility] Blood 06/11/2024 10:1 0 AM EDT 06/11/2024 10:24 AM EDT Narrative Resulting Agency Comment Spec In Lab Brett Herr MD CHEMISTRY ORDERABL ES Performing Organization Address [facility] Co de Phone Number [facility] [place] [address] * Lactate Dehydrogenase (06/11/2024 10:10 AM EDT) Lactate Dehydrogenase 193 110 - 220 unit/L [facility] Blood 06/11/2024 10:1 0 AM EDT 06/11/2024 10:24 AM EDT Narrative Resulting Agency Comment Spec In Lab Brett Herr MD CHEMISTRY ORDERABL ES Performing Organization Address [facility] Co de Phone Number [facility] [place] [address] * Hepatitis B Core Antibody, Total (06/11/2024 10:10 AM EDT) Hepatitis B Core Antibody Negative Negative [facility] Blood 06/11/2024 10:1 0 AM EDT 06/11/2024 10:24 AM EDT Narrative Resulting Agency Comment Spec In Lab Brett Herr MD CHEMISTRY ORDERABL ES Performing Organization Address [facility] de Phone Number [facility] [place] [address] * Hepatitis B Surface Antibody (06/11/2024 10:10 AM EDT) Hepatitis B Surface Antibody, Quantitative <3.5 IU/L [facility] Comment: HepB Surface Ab Quant: Unvaccinated: < 8.5 IU/L Vaccinated: >= 11.5 IU/L Hepatitis B Surface Antibody Negative [facility] Comment: Patient is presumed to be not vaccinated or immune to HBV infection. Expected Results: Vaccinated: Positive Unvaccinated: Negative Blood 06/11/2024 10:1 0 AM EDT 06/11/2024 10:24 AM EDT Narrative Resulting Agency Comment Spec In Lab Brett Herr MD CHEMISTRY ORDERABL ES Performing Organization Address [facility] Co de Phone Number [facility] [place] [address] * Hepatitis B Surface Antigen (06/11/2024 10:10 AM EDT) Hepatitis B Surface Antigen Negative Negative [facility] Blood 06/11/2024 10:1 0 AM EDT 06/11/2024 10:24 AM EDT Narrative Resulting Agency Comment Spec In Lab Brett Herr MD CHEMISTRY ORDERABL ES Performing Organization Address [facility] Co de Phone Number [facility] [place] [address] * Hepatitis C Antibody (06/11/2024 10:10 AM EDT) Hepatitis C Antibody Negative Negative [facility] Blood 06/11/2024 10:1 0 AM EDT 06/11/2024 10:24 AM EDT Narrative Resulting Agency Comment Spec In Lab Brett Herr MD CHEMISTRY ORDERABL ES [facility] [place] [address] * Uric acid (06/11/2024 10:10 AM EDT) Uric Acid 4.2 3.5 - 8.5 mg/dL [facility] Blood 06/11/2024 10:1 0 AM EDT 06/11/2024 10:24 AM EDT Narrative Resulting Agency Comment Spec In Lab Brett Herr MD CHEMISTRY ORDERABL ES Performing Organization Address [facility] [place] [address] documented in this encounter Visit Diagnoses Diagnosis Lymphoma, unspecified body region, unspecified lymphoma type documented in this encounter Care Teams Assistance Representative Relationship Specialty Start Date End Date Danie Connor DO [address] [place] [address] PCP - General Family Medicine 06/04/24 documented as of this encounter
--- OUTSIDE RECORDS SUMMARY | 2024-08-11 20:36 | XMS_ITS | Encounter Summary ---
[place] [address] Care Team Providers Care Electrical Design Technician Name Role Phone Jose Manuel Kimble MD Primary Care Provider [phone] Encounter Details Date Type Department Care Team (Late Contact Info) Description 03/07/2020 [place] [address] Kwabena Garcia MD [facility] [place] [address] Social History Tobacco Use Types Packs/Day Years [...] Telephone Encounter - Enedina Stephens RN - 03/07/2020 9:22 AM EDT Called and left voicemail that per Dr. Garcia AEDs were within normal limits and there were not changes in medications. Any questions, please call [phone] documented in this encounter Plan of Treatment Upcoming Encounters Date Type Department Care Team (Late Contact Info) Description 08/25/2024 9:00 AM EDT Office Visit Hematology/Oncology at [address] [phone] Pia Cooper MD [facility] [place] [address] Shayla Vuong APRN [facility] [place] [address] 08/25/2024 9:30 AM EDT Scheduled View Only Hematology/Oncology at [address] [phone] Ekta Womack RN 08/25/2024 9:30 AM EDT Infusion Hematology Oncology at [address] [phone] documented as of this encounter Visit Diagnoses Not on filedocumented in this encounter Care Teams Electrical Design Technician Relationship Specialty Start Date End Date Jose Manuel Kimble MD PCP - General Family Medicine 09/20/15 09/29/23 documented as of this encounter
--- OUTSIDE RECORDS SUMMARY | 2024-08-11 20:36 | XMS_ITS | Encounter Summary ---
Author Organization [facility] [place] [address] Care Team Providers Care Waiter/Waitress Head Name Role Phone Unknown Primary Care Provider Unavailabl e Encounter Details Date Type Department Care Team (Late Contact Info) Description 05/04/2024 2:15 PM EDT Ancillary Procedure [place] [phone] [place] Social History Tobacco Use Types [...] 9:00 AM EDT Office Visit Hematology/Oncology at [address] [phone] [address]ia [address] MD [facility] [place] [address] Shayla Vuong APRN [facility] [place] [address] 08/25/2024 9:30 AM EDT Scheduled View Only Hematology/Oncology at [address] [phone] Ekta Womack RN 08/25/2024 9:30 AM EDT Infusion Hematology Oncology at [address] [phone] documented as of this encounter Procedures Procedure Name Priority Date/Time Associated Diagnosis Comments FILM LIBRARY - STORAGE ONLY CT NECK Routine 05/04/2024 2:15 PM EDT documented in this encounter Results * Film Library- Storage Only CT Neck (05/04/2024 2:15 PM EDT) 05/28/2024 5:56 AM EDT Narrative LAM - 05/28/2024 5:56 AM EDT This exam is auto-finalizing. It's purpose is for storage only. [place] SHARMA FILM LIBRARY ORD ERABLES Performing Organization Address City/State/[facility] Co de Phone Number [place], [place] documented in this encounter Visit Diagnoses Not on filedocumented in this encounter Care Teams Waiter/Waitress Head Relationship Specialty Start Date End Date Unknown None PCP - General 09/30/23 06/03/24 documented as of this encounter
--- OUTSIDE RECORDS SUMMARY | 2024-08-11 20:36 | XMS_ITS | Encounter Summary ---
Author Organization [facility] [place] [address] Care Team Providers Care Client Solutions Director Name Role Phone Danie Connor Primary Care Provider [phone] Encounter Details Date Type Department Care Team (Latest Contact Info) Description 06/24/2024 Travel Social History Tobacco Use Types Packs/Day [...] 9:00 AM EDT Office Visit Hematology/Oncology at [address] [phone] Pia Cooper MD [facility] [address] [place] [address] Shayla Vuong APRN [facility] [address] [place] [address] 08/25/2024 9:30 AM EDT Scheduled View Only Hematology/Oncology at [address] [phone] Ekta Womack RN 08/25/2024 9:30 AM EDT Infusion Hematology Oncology at [address] [phone] documented as of this encounter Visit Diagnoses Not on filedocumented in this encounter Care Teams Client Solutions Director Relationship Specialty Start Date End Date Danie Connor DO [address] [place] [address] PCP - General Family Medicine 06/04/24 documented as of this encounter
--- OUTSIDE RECORDS SUMMARY | 2024-08-11 20:36 | XMS_ITS | Encounter Summary ---
Author Organization [facility] [place] [address] Care Team Providers Care [employer] Guidance Counselor Name Role Phone Jose Manuel Kimble MD Primary Care Provider [phone] Reason for Visit * Reason Onset Date Comments Medication Problem 11/16/2020 Encounter Details Date Type Department Care Team (Late st Contact Info) Description 11/16/2020 [place] [phone] Kwabena Garcia MD [facility] [place] [address] Social History Tobacco Use Types Packs/Day Years [...] encounter Miscellaneous Notes * Telephone Encounter - Jelena Lee RN - 11/16/2020 2:12 PM EST Pt seen 08/17/2020 Note states FUV in one year Rx prepped for Dr. Garcia to sign Will also ask stenographer secretary to fax last office note to PCP as requested * Telephone Encounter - Caitlin Payton - 11/16/2020 1:23 PM EST Call Center / [place] Message - General Issue Call Provider patient sees in Clinic: Dr. Garcia Caller and relationship (if other than patient-full name): [facility] Call back number: [phone] Ok to leave a message: Yes Reason for call: Elenita called asking if they can get the visit note from 08/17/2020 faxed to them at [phone]. She also wanted to let the provider know Brett requested a refill for the Lamictal through them, but the provider was not comfortable refilling it. They gave him a 1 week emergency supply until he could get a refill sent to the pharmacy. Disposition of Call (choose one and remove others): ??? Routine Message sent to the Nurse: Yes documented in this encounter Plan of Treatment Upcoming Encounters Date Type Department Care Team (Late st Contact Info) Description 08/25/2024 9:00 AM EDT Office Visit Hematology/Oncology at [address] [phone] Pia Cooper MD [facility] [place] [address] Shayla Vuong APRN [facility] [place] [address] 08/25/2024 9:30 AM EDT Scheduled View Only Hematology/Oncology at [address] [phone] Ekta Womack RN 08/25/2024 9:30 AM EDT Infusion Hematology Oncology at [address] [phone] documented as of this encounter Visit Diagnoses Not on filedocumented in this encounter Care Teams [employer] Guidance Counselor Relationship Specialty Start Date End Date Jose Manuel Kimble MD PCP - General Family Medicine 10/21/15 10/30/23 documented as of this encounter
--- OUTSIDE RECORDS SUMMARY | 2024-08-11 20:36 | XMS_ITS | Encounter Summary ---
Author Organization [facility] [place] [address] Care Team Providers Care Booster Station Operator Name Role Phone Unknown Primary Care Provider Unavailabl e Encounter Details Date Type Department Care Team (Late Contact Info) Description 05/19/2024 Interpretation Only [place] [phone] [place] Social History Tobacco Use Types [...] 9:00 AM EDT Office Visit Hematology/Oncology at [address] [phone] Pia Cooper MD [facility] DR [place] [address] Shayla Vuong APRN [facility] [address] [place] [address] 08/25/2024 9:30 AM EDT Scheduled View Only Hematology/Oncology at [address] [phone] Ekta Womack RN 08/25/2024 9:30 AM EDT Infusion Hematology Oncology at [address] [phone] documented as of this encounter Procedures Procedure Name Priority Date/Time Associated Diagnosis Comments FILM LIBRARY STORAGE ONLY ULTRASOUND STUDY Routine 05/19/2024 1:00 PM EDT documented in this encounter Results * Film Library- Storage Only Ultrasound Study (05/19/2024 1:00 PM EDT) 05/28/2024 5:56 AM EDT Narrative RAD - 05/28/2024 5:56 AM EDT This exam is auto-finalizing. It's purpose is for storage only. [place] SHARMA FILM LIBRARY ORD ERABLES Performing Organization Address City/State/[facility] Co de Phone Number [place], [place] documented in this encounter Visit Diagnoses Not on filedocumented in this encounter Care Teams Booster Station Operator Relationship Specialty Start Date End Date Unknown None PCP - General 09/30/23 06/03/24 documented as of this encounter
--- OUTSIDE RECORDS SUMMARY | 2024-08-11 20:36 | XMS_ITS | Encounter Summary ---
[place] [address] Care Team Providers Care Dieing Out Machine Operator Name Role Phone Jose Manuel Kimble MD Primary Care Provider [phone] Reason for Visit * Reason Onset Date Comments Medication Refill 11/16/2020 Encounter Details Date Type Department Care Team (Late st Contact Info) Description 11/16/2020 [place] [phone] Kwabena Garcia MD [facility] [place] [address] Social History Tobacco Use Types Packs/Day Years [...] Telephone Encounter - Margarita Munoz CMA - 11/16/2020 1:33 PM EST Refills request and sent to Dr. Garcia for review and signature. * Telephone Encounter - Addie Hunter - 11/16/2020 1:08 PM EST Call Center / [place] Message Prescription Refill Request Clinical Guest Request Runner message Provider patient sees in Clinic: Jose Caller and relationship (if other than patient-full name): [facility] Call back Number: [phone] Ok to leave a message: y Name of Med: lamoTRIgine (LAMICTAL Strength of Pills: 200mg Dosing Directions: take 200mg by mouth 2 times daily 30 or 90 Day Supply: 30 Pharmacy: [facility] Last Appointment: 08/20 Next Appointment: (IF CALL IS FROM PATIENT/FAMILY AND THERE IS NO FOLLOW UP SCHEDULED REVIEW CHART TO SEE WHEN APPOINTMENT IS NEEDED AND SCHEDULE BEFORE SENDING MESSAGE) x Is Patient out of Medication?: yes documented in this encounter Plan of Treatment Upcoming Encounters Date Type Department Care Team (Late st Contact Info) Description 08/25/2024 9:00 AM EDT Office Visit Hematology/Oncology at [address] [phone] Pia Cooper MD [facility] [place] [address] Shayla Vuong, CLEMENTE [facility] [address] [place] [address] 08/25/2024 9:30 AM EDT Scheduled View Only Hematology/Oncology at [address] [phone] Ekta Womack RN 08/25/2024 9:30 AM EDT Infusion Hematology Oncology at [address] [phone] documented as of this encounter Visit Diagnoses Not on filedocumented in this encounter Care Teams Dieing Out Machine Operator Relationship Specialty Start Date End Date Jose Manuel Kimble MD PCP - General Family Medicine 09/20/15 09/29/23 documented as of this encounter
--- OUTSIDE RECORDS SUMMARY | 2024-08-11 20:36 | XMS_ITS | Encounter Summary ---
Author Organization [facility] [place] [address] Care Team Providers Care Thimble Press Operator Name Role Phone Danie Connor Primary Care Provider [phone] Encounter Details Date Type Department Care Team (Latest Contact Info) Description 06/22/2024 Travel Social History Tobacco Use Types Packs/Day [...] 9:00 AM EDT Office Visit Hematology/Oncology at [address] [phone] Pia Cooper MD [facility] DR HEMATOLOGY [place] [address] Shayla Vuong APRN [facility] [address] HEMATOLOGY [place] [address] 08/25/2024 9:30 AM EDT Scheduled View Only Hematology/Oncology at [address] [phone] Ekta Womack RN 08/25/2024 9:30 AM EDT Infusion Hematology Oncology at [address] [phone] documented as of this encounter Visit Diagnoses Not on filedocumented in this encounter Care Teams Thimble Press Operator Relationship Specialty Start Date End Date Danie Connor DO [address] [place] [address] PCP - General Family Medicine 06/04/24 documented as of this encounter
--- OUTSIDE RECORDS SUMMARY | 2024-08-11 20:36 | XMS_ITS | Encounter Summary ---
Author Organization [facility] [place] [address] Care Team Providers Care Web Manager Name Role Phone Unknown Primary Care Provider Unavailabl e Encounter Details Date Type Department Care Team (Late Contact Info) Description 05/04/2024 Interpretation Only [place]iology [place] [phone] [place] Social History Tobacco Use Types [...] 9:00 AM EDT Office Visit Hematology/Oncology at [address] [phone] Pia Cooper MD [facility] [address] [place] [address] Shayla Vuong APRN [facility] [address] [place] [address] 08/25/2024 9:30 AM EDT Scheduled View Only Hematology/Oncology at [address] [phone] Ekta Womack RN 08/25/2024 9:30 AM EDT Infusion Hematology Oncology at [address] [phone] documented as of this encounter Procedures Procedure Name Priority Date/Time Associated Diagnosis Comments FILM LIBRARY - STORAGE ONLY CT NECK Routine 05/04/2024 2:15 PM EDT documented in this encounter Results * Film Library- Storage Only CT Neck (05/04/2024 2:15 PM EDT) 05/28/2024 5:56 AM EDT Narrative [facility] - 05/28/2024 5:56 AM EDT This exam is auto-finalizing. It's purpose is for storage only. [place] Lisa FILM LIBRARY ORD ERABLES [place], [place] documented in this encounter Visit Diagnoses Not on filedocumented in this encounter Care Teams Web Manager Relationship Specialty Start Date End Date Unknown None PCP - General 09/30/23 06/03/24 documented as of this encounter
--- OUTSIDE RECORDS SUMMARY | 2024-08-11 20:37 | XMS_ITS | Encounter Summary ---
[place] [address] Care Team Providers Care Information Technology Internship Name Role Phone Jose Manuel Kimble MD Primary Care Provider [phone] Reason for Visit * Reason Onset Date Comments Prior Authorization 12/05/2015 VIMPAT #60/3 0 12/15/15-03/18/16 Encounter Details Date Type Department Care Team (Late st Contact Info) Description 12/05/2015 [place] [address] Kwabena Garcia MD [facility] [place] [address] Prior Authorization (VIMPAT #60/30 12/15/15-03/18/16) Social History Tobacco Use Types Packs/Day Years [...] encounter Miscellaneous Notes * Telephone Encounter - Vasile Mcmullen RN - 12/20/2015 9:45 AM EST Called and left message for Jodie that ANNELIESE was approved. Vasile * Telephone Encounter - Cheryl Sutherland - 12/20/2015 9:19 AM EST VIMPAT 200mg #60/30 12/15/15-03/18/16 Request #: [id number] * Telephone Encounter - Cheryl Sutherland - 12/19/2015 10:39 AM EST INSURANCE ASKING FOR MORE INFO. FORM FILLED OUT AND FAXED. * Telephone Encounter - Cheryl Sutherland - 12/15/2015 12:34 PM EST PA FOR VIMPAT #60/30 FAXED TO [employer]. * Telephone Encounter - Kwabena Garcia MD - 12/06/2015 2:39 PM EST That's fine. Please change the prescription to Vimpat 200 mg 1 tab twice daily. Also, please call the patient and explain the following titration schedule: Vimpat 200 m/2 tab at night x 1 week; then 1 tab at night x 1 week; then 1/2 tab in AM and 1 tab in PM x 1 week, then 1 tab twice daily. Continue with 1 tab twice daily and go on to wean the carbamazepine. * Telephone Encounter - Vasile Mcmullen RN - 12/06/2015 10:[address] Garcia, Insurance will not cover Vimpat as currently written, 100 mg 2 tabs bid. Will cover 200 mg 1 tab bid. Prepped script for your approval. Vasile BORJA * Telephone Encounter - Mitzi Oglesby - 12/05/2015 3:43 PM EST Jodie called in regarding the patient's vimpat. Jodie states the insurance will not cover the Vimpat. Patient would like us to contact insurance company and see why they will not cover this, and to try and help get this approved. documented in this encounter Plan of Treatment Upcoming Encounters Date Type Department Care Team (Late st Contact Info) Description 08/25/2024 9:00 AM EDT Office Visit Hematology/Oncology at [address] [phone] Pia Cooper MD [facility] DR HEMATOLOGY [place] [address] Shayla Vuong APRN [facility] DR HEMATOLOGY [place] [address] 08/25/2024 9:30 AM EDT Scheduled View Only Hematology/Oncology at [address] [phone] Ekta Womack RN 08/25/2024 9:30 AM EDT Infusion Hematology Oncology at [address] [phone] documented as of this encounter Visit Diagnoses Not on filedocumented in this encounter Care Teams Information Technology Internship Relationship Specialty Start Date End Date Jose Manuel Kimble MD PCP - General Family Medicine 09/20/15 09/29/23 documented as of this encounter
--- OUTSIDE RECORDS SUMMARY | 2024-08-11 20:37 | XMS_ITS | Encounter Summary ---
Author Organization [facility] [place] [address] Care Team Providers Care Wood Casket Maker Name Role Phone Jose Manuel Kimble MD Primary Care Provider [phone] Encounter Details Date Type Department Care Team (Late Contact Info) Description 07/23/2005 Orders Only Radiology and Cardiology Results [address] [place] [phone] Apd Conversion, Results Provider, Social History Tobacco Use Types Packs/Day Years [...] AM EDT Office Visit Hematology/Oncology at [address] [phone] Pia Cooper MD [facility] DR [place] [address] Shayla Vuong APRN [facility] [place] [address] 08/25/2024 9:30 AM EDT Scheduled View Only Hematology/Oncology at [address] [phone] Ekta Womack RN 08/25/2024 9:30 AM EDT Infusion Hematology Oncology at [address] [phone] documented as of this encounter Procedures Procedure Name Priority Date/Time Associated Diagnosis Comments PROTHROMBIN TIME Routine 07/23/2005 1:30 PM EDT documented in this encounter Results * (ABNORMAL) Prothrombin Time (07/23/2005 1:30 PM EDT) Prothrombin Time 11.2(Exte rnal Lab) 9.4 - 11.8 SECONDS QUINTIN GARCIA CONVERSION International Normalization Ratio 1.1(Exter nal Lab) QUINTIN FORBESK DAY CONVERSION 07/23/2005 1:30 PM EDT Results Provider Apd Conversion HEMAT OLOGY ORDERABLES QUINTIN GARCIA DAY CONVERSION documented in this encounter Visit Diagnoses Not on filedocumented in this encounter Care Teams Wood Casket Maker Relationship Specialty Start Date End Date Jose Manuel Kimble MD PCP - General Family Medicine 09/20/15 09/29/23 documented as of this encounter
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
--- OUTSIDE RECORDS SUMMARY | 2024-08-11 20:37 | XMS_ITS | Encounter Summary ---
Author Organization Formerly [facility] [place] [address] Care Team Providers Care Movie Extra Name Role Phone Jose Manuel Kimble MD Primary Care Provider [phone] Encounter Details Date Type Department Care Team (Late Contact Info) Description 06/08/2012 Interpretation Only Radiology [address] [place] [address] [place] [address] Unknown None Social History Tobacco Use Types Packs/Day Years [...] AM EDT Office Visit Hematology/Oncology at [address] [phone] Pia Cooper MD [facility] DR HEMATOLOGY [place] [address] Shayla Vuong APRN [facility] [place] [address] 08/25/2024 9:30 AM EDT Scheduled View Only Hematology/Oncology at [address] [phone] Ekta Womack RN 08/25/2024 9:30 AM EDT Infusion Hematology Oncology at [address] [phone] documented as of this encounter Procedures Procedure Name Priority Date/Time Associated Diagnosis Comments XR FLUORO NO RAD <1HR - RADIOLOGY USE Routine 06/08/2012 6:02 AM EDT documented in this encounter Results * XR Fluoro <1Hr - Radiology Use (06/08/2012 6:02 AM EDT) Anatomical Region Laterality Modality N/A Radiographic Rama ging 06/08/2012 6:02 AM EDT Narrative 06/08/2012 6:02 AM EDT APD Historical Result Principal Repair Servicer: ??PRIMITIVO ??RAYSHAWN C-ARM: FINDINGS: Fluoroscopy was provided for Dr Mckeon for history of L5/S1 medial facetectomy. ??No Radiologist was present for the procedure. ??Two spot fluoroscopic images with limited detail of the lumbosacral spine were archived to PACS. ??Radiopaque instruments project in the posterior soft tissues at the level of L5/S1. ??Please refer to separate procedure report. Relative disc space narrowing at L5/S1 is noted. TOTAL FLUORO TIME: ??3.9 seconds. ??Cumulative dose is 3.26 mGy. Primitivo Guillen MD /[facility] [id number] CC: Procedure Note Unknown - 05/31/2019 APD Historical Result Principal Repair Servicer: PRIMITIVO GUILLEN C-ARM: FINDINGS: Fluoroscopy was provided for Dr Mckeon for history of L5/S1 medialfacetectomy. No Radiologist was present for the procedure. Two spot fluoroscopic imageswith limited detail of the lumbosacral spine were archived to PACS. Radiopaque instruments project in theposterior soft tissues at the level of L5/S1. Please refer to separate procedure report. Relative disc space narrowing at L5/S1 is noted. TOTAL FLUORO TIME: 3.9 seconds. Cumulative dose is 3.26 mGy. Primitivo Guillen MD YUE/laura [id number] CC: Unknown IMG FLUORO ORDERABLE S documented in this encounter Visit Diagnoses Not on filedocumented in this encounter Care Teams Movie Extra Relationship Specialty Start Date End Date Jose Manuel Kimble MD PCP - General Family Medicine 09/20/15 09/29/23 documented as of this encounter
--- OUTSIDE RECORDS SUMMARY | 2024-08-11 20:37 | XMS_ITS | Encounter Summary ---
Author Organization [facility] [place] [address] Care Team Providers Care Regulatory Analyst Name Role Phone Jose Manuel Kimble MD Primary Care Provider [phone] Reason for Visit * Consultation (Routine) - Closed Specialty Diagnoses / Procedures Referred By Contfernando t Referred To Contact Neurology Diagnoses Epilepsy, unspecified, not intractable, without status epilepticus Unspecified convulsions Epilepsy Seizure Disorder Radha Madison MD [address] [place] [id number] Kwabena Garcia MD [facility] [place] [place] [address] Referral ID Status Reason Start Date Expiration Date Visits Re quested Visits Authorized [id number] Closed 10/06/2019 10/05/2020 1 1 Encounter Details Date Type Department Care Team (Late Contact Info) Description 02/21/2020 3:30 PM EDT [place] [address] Kwabena Garcia MD [facility] [place] [place] [address] Social History Tobacco Use Types Packs/Day Years [...] encounter Miscellaneous Notes * Telephone Encounter - Kwabena Garcia MD - 02/21/2020 12:05 PM EDT [facility] [place] [address] Re - Brett Campos 1975 PCP - Jose Manuel Kimble MD Follow-up Evaluation I saw Brett Campos today for a scheduled follow-up evaluation via telephone encounter. Brett Campos is a 44 y.o. with a history of seizures. Epilepsy Type/Syndrome: LRE, s/p LATL 1998 at [facility], continuing seizures Seizure history: Onset at baby; [...] lazy eye. Family Hx: No epilepsy MRI: [facility] Oct 2015 left [facility] Video EE11/24/15 1. Continuous left temporal slowing; 2. No sharp waves 3. Multiple CP and 2ndGTC seizure captured with EEG lateralized to the right Interim History Seizures -I have not seen this patient for > 4 years; he reports overall good seizure management. He has occasional 1/year unresponsive seizures, last in October 2019. Otherwise denies other major seizuretypes. Medications -He is taking Vimpat 200 mg tab, 1/2 tab BID; takes lamotrigine 200 mg /. Denies typical side effects of the medications -Patient reports feeling low energy and tired, is wondering if this is from the medications? 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 Reports that he has been depressed and is on sertraline. Current Outpatient Medications Medication Sig Dispense Refill ??? donepezil (ARICEPT) 5 mg Tablet Take 1 tablet by mouth daily. 30 tablet 0 ??? lacosamide (VIMPAT) 200 mg Tablet Take 1 tablet by mouth 2 times daily. 60 tablet 0 ??? lamoTRIgine (LAMICTAL) 200 mg Tablet Take 200 mg by mouth 2 times daily. 0 No current facility-administered medications for this visit. Past Seizure Medications: -Patient does not remember Medication Levels: -none Cognitive function -denies any memory problems Psychiatric function -Reports aggression and depression are better, not taking the Zoloft PAST DEPRESSION SCALE: *Seizure Control: QEpilepsy 04/22/2016 Last seizure was: Within past year Were seizures disabling? 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 Patient was pleasant and provided a good history. Gait was narrow based with no tandem dystaxia. Steady in the tandem Romberg position. There was no nystagmus, upper extremity dysmetria, or tremor. IMPRESSION/PLAN 1. Definite focal epilepsy, bilateral TLE, L JOSE and now R temporal, currently controlled -relatively well controlled on dual AEDs -Medication: continue on Lamotrigine and vimpat without change; get levels done -Side effects: unclear if fatigue is related to AEDs or depression -Epilepsy surgery: patient seiuzre free, not RNS or surgery at this time, possible RNS candidate; unlikely that he is a good surgical candidate. Caviot being that seizure that occurrs at home was notcaptured during the video EEG monitoring -Driving: no -Bone health: not discussed -Gender specific health issues: discussed -Discussed seizure life style To Do: levels of AEDs, take NDDI-E, will follow up at that time. I spent 31 minutes today with this patient, 23 minutes of this office visit were spent in discussion of variety of issues related to the diagnosis of focal epilepsy as discussed above. documented in this encounter Plan of Treatment Upcoming Encounters Date Type Department Care Team (Late st Contact Info) Description 08/25/2024 9:00 AM EDT Office Visit Hematology/Oncology at [address] [phone] Pia Cooper MD [facility] [place] [address] Shayla Vuong APRN [facility] [place] [address] 08/25/2024 9:30 AM EDT Scheduled View Only Hematology/Oncology at [address] [phone] Ekta Womack RN 08/25/2024 9:30 AM EDT Infusion Hematology Oncology at [address] [phone] documented as of this encounter Visit Diagnoses Diagnosis Focal epilepsy Localization-related (focal) (partial) epilepsy and epileptic syndromes with simple partial seizures, without mention of intractable epilepsy documented in this encounter Care Teams Regulatory Analyst Relationship Specialty Start Date End Date Jose Manuel Kimble MD PCP - General Family Medicine 09/20/15 09/29/23 documented as of this encounter
--- OUTSIDE RECORDS SUMMARY | 2024-08-11 20:37 | XMS_ITS | Encounter Summary ---
Author Organization [facility] [place] [address] Care Team Providers Care Property Field Adjuster Name Role Phone Jose Manuel Kimble MD Primary Care Provider Reason for Visit * Reason Onset Date Comments Other 01/12/2016 Encounter Details Date Type Department Care Team (Late st Contact Info) Description 01/12/2016 [place] [phone] Kwabena Garcia MD [facility] [place] [address] Other Social History Tobacco Use Types Packs/Day [...] Telephone Encounter - Vasile Mcmullen RN - 01/15/2016 11:04 AM EST Jodie Ford, Brett's , called again today to report that Brett is still having a lot of balance and dizziness issues with his Vimpat. (currently taking 1-1/2 tabs bid) they have tried adjusted administration times to have less impact on his work. He is currently waking around 1 am to take the am doseand is taking the pm dose around 4 in the afternoon when he gets home from work. Please advise. Thanks, Vasile RN * Telephone Encounter - Miroslava Rosa - 01/12/2016 9:49 AM EST Patient called in regarding side effects this patient is experiencing while transferring over to the [facility]. States that he is having a lot of gait instability and difficulty walking. Also reports that he is extremely dizzy, to the point where he could not go to work yesterday. Please call back to advise. documented in this encounter Plan of Treatment Upcoming Encounters Date Type Department Care Team (Late st Contact Info) Description 08/25/2024 9:00 AM EDT Office Visit Hematology/Oncology at [address] [phone] Pia Cooper MD [facility] DR HEMAT[place] [address] Shayla Vuong, CLEMENTE [facility] DR [place]EMAT[place]Y [place] [address] 08/25/2024 9:30 AM EDT Scheduled View Only Hematology/Oncology at [address] [phone] Ekta Womack RN 08/25/2024 9:30 AM EDT Infusion Hematology Oncology at [address] [phone] documented as of this encounter Visit Diagnoses Not on filedocumented in this encounter Care Teams Property Field Adjuster Relationship Specialty Start Date End Date Jose Manuel Kimble MD PCP - General Family Medicine 09/20/15 09/29/23 documented as of this encounter
--- OUTSIDE RECORDS SUMMARY | 2024-08-11 20:37 | XMS_ITS | Encounter Summary ---
Author Organization [facility] [place] [address] Care Team Providers Care Rod Bending Machine Operator Name Role Phone Jose Manuel Kimble MD Primary Care Provider [phone] Reason for Visit * Reason Onset Date Comments Medication Refill 01/13/2017 Encounter Details Date Type Department Care Team (Late Contact Info) Description 01/13/2017 [place] [address] Kwabena Garcia MD [facility] [place] [address] Social History Tobacco Use Types Packs/Day Years [...] Upcoming Encounters Date Type Department Care Team ([facility] Contact Info) Description 08/25/2024 9:00 AM EDT Office Visit Hematology/Oncology at [address] [phone] Pia Cooper MD [facility] DR [place] [address] Shayla Vuong, TELERADIOLOGIST [facility] DR [place] [address] 08/25/2024 9:30 AM EDT Scheduled View Only Hematology/Oncology at [address] [phone] Ekta Womack RN 08/25/2024 9:30 AM EDT Infusion Hematology Oncology at [address] [phone] documented as of this encounter Visit Diagnoses Not on filedocumented in this encounter Care Teams Rod Bending Machine Operator Relationship Specialty Start Date End Date Jose Manuel Kimble MD PCP - General Family Medicine 09/20/15 09/29/23 documented as of this encounter
--- OUTSIDE RECORDS SUMMARY | 2024-08-11 20:37 | XMS_ITS | Encounter Summary ---
[place] [address] Care Team Providers Care Psychiatric Lpn Name Role Phone Jose Manuel Kimble MD Primary Care Provider [phone] Reason for Visit * Reason Onset Date Comments Prior Authorization 03/26/2016 Prior Author ization for Medication Encounter Details Date Type Department Care Team (Late st Contact Info) Description 03/26/2016 Telephone [place] [address] Kwabena Garcia MD [facility] [place] [address] Prior Authorization (Prior Authorization for Medication) Social History Tobacco Use Types Packs/Day Years [...] encounter Miscellaneous Notes * Telephone Encounter - Ivory Allison LPN - 03/27/2016 8:15 AM EDT Medication: Vimpat 200 mg 60/30 Prior Authorization: Start Date: 03/27/16 End Date:03/27/19 Health Plan: [employer] Phone: Fax: ID # [id number] Authorizing Rep: Authorization Number (if applicable): [id number] Notified: Patient ( x ) Pharmacy ( ) * Telephone Encounter - Ivory Allison LPN - 03/26/2016 4:29 PM EDT [facility] for [facility],was in progress and their system went down and unable to finish.Will call in am. Pharmacy notified and they gave patient some medication to make it through. * Telephone Encounter - Fransico Mera - 03/26/2016 3:37 PM EDT Smita from [facility] called to check on status of PA for lacosamide (VIMPAT) 200 mg Tablet. Smita states that it is important to know what is going on with this, as patient is completely out of this medication. Please call VIELKA: [phone] documented in this encounter Plan of Treatment Upcoming Encounters Date Type Department Care Team (Late st Contact Info) Description 08/25/2024 9:00 AM EDT Office Visit Hematology/Oncology at [address] [phone] Pia Cooper MD [facility] DR HEMATOLOGY [place] [address] Shayla Vuong APRN [facility] HEMATOLOG[facility] [place] [address] 08/25/2024 9:30 AM EDT Scheduled View Only Hematology/Oncology at [address] [phone] Ekta Womack RN 08/25/2024 9:30 AM EDT Infusion Hematology Oncology at [address] [phone] documented as of this encounter Visit Diagnoses Not on filedocumented in this encounter Care Teams Psychiatric Lpn Relationship Specialty Start Date End Date Jose Manuel Kimble MD PCP - General Family Medicine 09/20/15 09/29/23 documented as of this encounter
--- OUTSIDE RECORDS SUMMARY | 2024-08-11 20:37 | XMS_ITS | Encounter Summary ---
Author Organization [facility] [place] [address] Care Team Providers Care Echocardiography Radiology Technologist Name Role Phone Jose Manuel Kimble MD Primary Care Provider [phone] Reason for Visit * Reason Onset Date Comments Other 12/08/2015 Encounter Details Date Type Department Care Team (Late st Contact Info) Description 12/08/2015 [place] [phone] Kwabena Garcia MD [facility] [place] [address] Other Social History Tobacco Use Types Packs/Day [...] Telephone Encounter - Vasile Mcmullen RN - 12/19/2015 10:50 AM EST Called and left message for that yes, the problem is the insurance company and that our PA coordinator is working on the denial. Vasile * Telephone Encounter - Oneal Burgess - 12/19/2015 9:57 AM EST Patient's called to ask about the status of the prescription for VIMPAT. Patient's inquires as to whether it is a problem with the insurance or something else. She requests a call back to let her know the status of this prescription. * Telephone Encounter - Oneal Burgess - 12/18/2015 3:33 PM EST Miracle called from the patient's pharmacy again. She asks what the status of the prior authorization for the VIMPAT is. Please call pharmacy to update them. * Telephone Encounter - Vasile Mcmullen RN - 12/08/2015 11:12 AM EST Prior Auth in process with PA coordinator Vasile * Telephone Encounter - Oneal Burgess - 12/08/2015 11:03 AM EST Pharmacy called to discuss the prior auth for the VIMPAT. Miracle asked which VIMPAT prescription was being pursued, or if it should be both. Please call pharmacy to discuss. documented in this encounter Plan of Treatment Upcoming Encounters Date Type Department Care Team (Late st Contact Info) Description 08/25/2024 9:00 AM EDT Office Visit Hematology/Oncology at [address] [phone] Pia Cooper MD [facility] [place] [address] Shayla Vuong APRN [facility] [place] [address] 08/25/2024 9:30 AM EDT Scheduled View Only Hematology/Oncology at [address] [phone] Ekta Womack RN 08/25/2024 9:30 AM EDT Infusion Hematology Oncology at [address] [phone] documented as of this encounter Visit Diagnoses Not on filedocumented in this encounter Care Teams Echocardiography Radiology Technologist Relationship Specialty Start Date End Date Jose Manuel Kimble MD PCP - General Family Medicine 09/20/15 09/29/23 documented as of this encounter
--- OUTSIDE RECORDS SUMMARY | 2024-08-11 20:37 | XMS_ITS | Encounter Summary ---
Author Organization [facility] [place] [address] Care Team Providers Care Maintenance Supervisor Electrical Name Role Phone Jose Manuel Kimble MD Primary Care Provider [phone] Encounter Details Date Type Department Care Team (Late Contact Info) Description 09/25/2015 Orders [place] [address] Kwabena Garcia MD [facility] [place] [address] Social History Tobacco Use Types Packs/Day Years [...] AM EDT Office Visit Hematology/Oncology at [address] [phone] Pia Cooper MD [facility] DR HEMATOLOGY [place] [address] Shayla Vuong, FLOWER MAKER [facility] HEMATOLOGY [place] [address] 08/25/2024 9:30 AM EDT Scheduled View Only Hematology/Oncology at [address] [phone] Ekta Womack RN 08/25/2024 9:30 AM EDT Infusion Hematology Oncology at [address] [phone] documented as of this encounter Visit Diagnoses Not on filedocumented in this encounter Care Teams Maintenance Supervisor Electrical Relationship Specialty Start Date End Date Jose Manuel Kimble MD PCP - General Family Medicine 09/20/15 09/29/23 documented as of this encounter
--- OUTSIDE RECORDS SUMMARY | 2024-08-11 20:37 | XMS_ITS | Encounter Summary ---
Author Organization [facility] [place] [address] Care Team Providers Care Automotive Brake Specialist Name Role Phone Jose Manuel Kimble MD Primary Care Provider [phone] Encounter Details Date Type Department Care Team ([facility] Contact Info) Description 10/02/2019 Ancillary Procedure [place] [address] Jose Manuel Kimble MD [address] [address] Social History Tobacco Use Types Packs/Day Years [...] Upcoming Encounters Date Type Department Care Team ([facility] Contact Info) Description 08/25/2024 9:00 AM EDT Office Visit Hematology/Oncology at [address] [phone] Pia Cooper MD [facility] DR HEMATOLOGY [place] [address] Shayla Vuong APRN [facility] HEMATOLOGY [place] [address] 08/25/2024 9:30 AM EDT Scheduled View Only Hematology/Oncology at [address] [phone] Ekta Womack RN 08/25/2024 9:30 AM EDT Infusion Hematology Oncology at [address] [phone] documented as of this encounter Procedures Procedure Name Priority Date/Time Associated Diagnosis Comments FILM LIBRARY STORAGE ONLY CT SPINE Routine 10/02/2019 12:00 AM EDT documented in this encounter Results * Film Library- Storage Only CT Spine (10/02/2019 12:00 AM EDT) Narrative LAM - 10/06/2019 12:33 PM EST This exam is auto-finalizing. It's purpose is for storage only. Jose Manuel Kimble MD G FILM LIBRARY ORD ERABLES Performing Organization Address City/State/[facility] Co de Phone Number [place], [place] documented in this encounter Visit Diagnoses Not on filedocumented in this encounter Care Teams Automotive Brake Specialist Relationship Specialty Start Date End Date Jose Manuel Kimble MD PCP - General Family Medicine 09/20/15 09/29/23 documented as of this encounter
--- OUTSIDE RECORDS SUMMARY | 2024-08-11 20:37 | XMS_ITS | Encounter Summary ---
Author Organization [facility] [place] [address] Care Team Providers Care Market Researcher Name Role Phone Jose Manuel Kimble MD Primary Care Provider [phone] Encounter Details Date Type Department Care Team (Late Contact Info) Description 03/03/2020 External [place] [address] Kwabena Garcia MD [facility] [place] [address] Social History Tobacco Use Types Packs/Day Years [...] 9:00 AM EDT Office Visit Hematology/Oncology at [address] [phone] Pia Cooper MD [facility] DR HEMATOLOGY [place] [address] Shayla Vuong, VP [employer] [facility] DR HEMATOLOGY [place] [address] 08/25/2024 9:30 AM EDT Scheduled View Only Hematology/Oncology at [address] [phone] Ekta Womack RN 08/25/2024 9:30 AM EDT Infusion Hematology Oncology at [address] [phone] documented as of this encounter Procedures Procedure Name Priority Date/Time Associated Diagnosis Comments LAMOTRIGINE LVL Routine 02/24/2020 documented in this encounter Results * Lamotrigine Lvl (02/24/2020) Lamotrigine Lvl (MARCH) 6.3 Lacosamide Level (MARCH) 3.0 Blood specimen (specimen) 02/24/2020 Historical Provider LAB SEND OUT KALEIGH JEFFRIES documented in this encounter Visit Diagnoses Not on filedocumented in this encounter Care Teams Market Researcher Relationship Specialty Start Date End Date Jose Manuel Kimble MD PCP - General Family Medicine 09/20/15 09/29/23 documented as of this encounter
--- OUTSIDE RECORDS SUMMARY | 2024-08-11 20:37 | XMS_ITS | Encounter Summary ---
Author Organization Formerly [facility] [place] [address] Care Team Providers Care Reed Fixer Name Role Phone Jose Manuel Kimble MD Primary Care Provider [phone] Reason for Visit * Reason Onset Date Comments Medication Refill 04/30/2017 Encounter Details Date Type Department Care Team ([facility] Contact Info) Description 04/30/2017 [place] [address] Kwabena Garcia MD [facility] [place] [address] Social History Tobacco Use Types Packs/Day Years [...] Care Team ([facility] Contact Info) Description 08/25/2024 9:00 AM EDT Office Visit Hematology/Oncology at [address] [phone] Pia Cooper MD [facility] [place] [address] Shayla Vuong, HUMAN SERVICES MANAGER [facility] [place] [address] 08/25/2024 9:30 AM EDT Scheduled View Only Hematology/Oncology at [address] [phone] Ekta Womack RN 08/25/2024 9:30 AM EDT Infusion Hematology Oncology at [address] [phone] documented as of this encounter Visit Diagnoses Not on filedocumented in this encounter Care Teams Reed Fixer Relationship Specialty Start Date End Date Jose Manuel Kimble MD PCP - General Family Medicine 09/20/15 09/29/23 documented as of this encounter
--- OUTSIDE RECORDS SUMMARY | 2024-08-11 20:37 | XMS_ITS | Encounter Summary ---
Author Organization Formerly [facility] [place] [address] Care Team Providers Care Photo Booth Operator Name Role Phone Jose Manuel Kimble MD Primary Care Provider [phone] Reason for Visit * Reason Comments Medication Refill Encounter Details Date Type Department Care Team (Late Contact Info) Description 06/24/2016 [place] [address] Kwabena Garcia MD [facility] [place] [address] Social History Tobacco Use Types Packs/Day Years [...] 9:00 AM EDT Office Visit Hematology/Oncology at [address] [phone] Pia Cooper MD [facility] [address] [place] [address] Shayla Vuong, MMD UNIT TEACHER [facility] [place] [address] 08/25/2024 9:30 AM EDT Scheduled View Only Hematology/Oncology at [address] [phone] Ekta Womack RN 08/25/2024 9:30 AM EDT Infusion Hematology Oncology at [address] [phone] documented as of this encounter Visit Diagnoses Not on filedocumented in this encounter Care Teams Photo Booth Operator Relationship Specialty Start Date End Date Jose Manuel Kimble MD PCP - General Family Medicine 09/20/15 09/29/23 documented as of this encounter
--- OUTSIDE RECORDS SUMMARY | 2024-08-11 20:37 | XMS_ITS | Encounter Summary ---
[place] [address] Care Team Providers Care Truck Body Repairer Name Role Phone Jose Manuel Kimble MD Primary Care Provider [phone] Encounter Details Date Type Department Care Team (Late st Contact Info) Description 11/26/2015 [place] [phone] Robyn Morales MD [facility] [place] [address] Social History Tobacco Use Types Packs/Day Years [...] Miscellaneous Notes * Telephone Encounter - Robyn Morales MD - 11/26/2015 9:26 AM EST Spoke with Brett this morning, recently discharged on Friday - He states he's surprised his meds havent kicked back in since discharge on 11/24. Resumed his home meds of carbemazepine and lamotrigine. Feels like he's lightheaded and balance is way off. No more seizures since discharge, but feels like he is in between seizures. Did not take klonopin 1 mg BID as prescribed on discharge bc he thought he wouldn't need it. Will pick it up and start taking today. Advised pt to take klonopin as prescribed, would continue to take it easy, continue to rest and drink plenty of fluids. He will take klonopin as prescribed and call back if he continues to feel poorly in a day or 2. Scheduled to see Dr. Garcia on 12/04/14. ROBYN MORALES MD documented in this encounter Plan of Treatment Upcoming Encounters Date Type Department Care Team (Late st Contact Info) Description 08/25/2024 9:00 AM EDT Office Visit Hematology/Oncology at [address] [phone] Pia Cooper MD [facility] [place] [address] Shayla Vuong APRN [facility] [place] [address] 08/25/2024 9:30 AM EDT Scheduled View Only Hematology/Oncology at [address] [phone] Ekta Womack RN 08/25/2024 9:30 AM EDT Infusion Hematology Oncology at [address] [phone] documented as of this encounter Visit Diagnoses Not on filedocumented in this encounter Care Teams Truck Body Repairer Relationship Specialty Start Date End Date Jose Manuel Kimble MD PCP - General Family Medicine 09/20/15 09/29/23 documented as of this encounter
--- OUTSIDE RECORDS SUMMARY | 2024-08-11 20:37 | XMS_ITS | Encounter Summary ---
Author Organization Formerly [facility] [place] [address] Care Team Providers Care Save All Operator Name Role Phone Jose Manuel Kimble MD Primary Care Provider [phone] Reason for Visit * Reason Onset Date Comments Medication Refill 08/13/2017 Encounter Details Date Type Department Care Team (Late Contact Info) Description 08/13/2017 [place] [address] Kwabena Garcia MD [facility] [place] [address] Mild cognitive impairment Social History Tobacco Use Types Packs/Day Years [...] AM EDT Office Visit Hematology/Oncology at [address] [phone] Pia Cooper MD [facility] HEMATOLOGY [place] [address] Shayla Vuong, EQUITY MANAGER [facility] [place] [address] 08/25/2024 9:30 AM EDT Scheduled View Only Hematology/Oncology at [address] [phone] Ekta Womack RN 08/25/2024 9:30 AM EDT Infusion Hematology Oncology at [address] [phone] documented as of this encounter Visit Diagnoses Diagnosis Mild cognitive impairment Mild cognitive impairment, so stated documented in this encounter Care Teams Save All Operator Relationship Specialty Start Date End Date Jose Manuel Kimble MD PCP - General Family Medicine 09/20/15 09/29/23 documented as of this encounter
--- OUTSIDE RECORDS SUMMARY | 2024-08-11 20:37 | XMS_ITS | Encounter Summary ---
Author Organization [facility] [place] [address] Care Team Providers Care Pricing Associate Name Role Phone Jose Manuel Kimble MD Primary Care Provider [phone] Reason for Visit * Reason Onset Date Comments Medication Refill 06/24/2016 Encounter Details Date Type Department Care Team (Late st Contact Info) Description 06/24/2016 [place] [address] Kwabena Garcia MD [facility] [place] [address] Social History Tobacco Use Types Packs/Day Years [...] Telephone Encounter - Vasile Mcmullen RN - 06/24/2016 1:11 PM EDT Script called in Vasile * Telephone Encounter - Vasile Mcmullen RN - 06/24/2016 9:39 AM EDT Patient requesting medication refill. Last appt 04/22 Next appt 10/07 * Telephone Encounter - Miroslava Rosa - 06/24/2016 9:15 AM EDT Name of Med: lacosamide VIMPAT Strength of Pills: 200mg tablet Dosing Directions: take 1 tablet by mouth 2 times daily 30 or 90 Day: 30 [facility] [place] Last Appointment: 04/22 Next Appointment: 10/07 Is Patient out of Medication?: YES documented in this encounter Plan of Treatment Upcoming Encounters Date Type Department Care Team (Late st Contact Info) Description 08/25/2024 9:00 AM EDT Office Visit Hematology/Oncology at [address] [phone] Pia Cooper MD [facility] DR [place] [address] Shayla Vuong APRN [facility] [place] [address] 08/25/2024 9:30 AM EDT Scheduled View Only Hematology/Oncology at [address] [phone] Ekta Womack RN 08/25/2024 9:30 AM EDT Infusion Hematology Oncology at [address] [phone] documented as of this encounter Visit Diagnoses Not on filedocumented in this encounter Care Teams Pricing Associate Relationship Specialty Start Date End Date Jose Manuel Kimble MD PCP - General Family Medicine 09/20/15 09/29/23 documented as of this encounter
--- OUTSIDE RECORDS SUMMARY | 2024-08-11 20:37 | XMS_ITS | Encounter Summary ---
[place] [address] Care Team Providers Care Environmental Field Team Member Name Role Phone Jose Manuel Kimble MD Primary Care Provider [phone] Reason for Referral * Diagnostic Test (Routine) - Closed Specialty Diagnoses / Procedures Referred By Kymberly penaloza Referred To Contact Radiology Diagnoses Localization-related epilepsy, intractable Procedures MRI Brain WO Contrast Kwabena Garcia MD [facility] [place] [address] [place] [address] Referral ID Status Reason Start Date Expiration Date V isits Requested Visits Authorized [id number] Closed Specialty Service Requested 11/09/2015 01/07/2016 1 1 Reason for Visit * Auth/Cert - Closed Specialty Diagnoses / Procedures Referred By Kymberly penaloza Referred To Contact Diagnoses Refractory Seizures Procedures PRG COMBINED EEG AND VIDEO REORD AND INTERP 24HRS FOR CEREBRAL SEIZURES Referral ID Status Reason Start Date Expiration Date Visits Re quested Visits Authorized [id number] Closed 1 1 Encounter Details Date Type Department Care Team (Late st Contact Info) Description 11/20/2015 11:42 AM EST - 11/20/2015 2:23 PM EST Hospital [place] [address] Kwabena Garcia MD [facility] [place] [address] Localization-relate d epilepsy, intractable Discharge Disposition: Home Social History Tobacco Use [...] Sig Dispensed Refills Start Date End Date clonazePAM (KLONOPIN) 1 mg Tablet, Rapid Dissolve Take 1 tablet by mouth 2 times daily for 7 days. 14 tablet 0 11/24/2015 12/01/2015 carBAMazepine (CARBATROL) 200 mg Cap, Multiphasic Release 12 hr Take 400 mg by mouth every morning. 04/22/2016 carBAMazepine (CARBATROL) 200 mg Cap, Multiphasic Release 12 hr Take 600 mg by mouth nightly. 01/22/2016 lamoTRIgine (LAMICTAL) 200 mg Tablet Take 200 mg by mouth 2 times daily. 0 09/02/2015 11/16/2020 sertraline (ZOLOFT) 50 mg Tablet Take 50 mg by mouth daily. 0 07/11/2015 12/04/2015 documented as of this encounter Plan of Treatment Upcoming Encounters Date Type Department Care Team (Late st Contact Info) Description 08/25/2024 9:00 AM EDT Office Visit Hematology/Oncology at [address] [phone] Pia Cooper MD [facility] DR HEMATOLOGY [place] [address] Shayla Vuong APRN [facility] HEMATOLOGY [place] [address] 08/25/2024 9:30 AM EDT Scheduled View Only Hematology/Oncology at [address] [phone] Ekta Womack RN 08/25/2024 9:30 AM EDT Infusion Hematology Oncology at [address] [phone] documented as of this encounter Procedures Procedure Name Priority Date/Time Associated Diagnosis Comments MRI BRAIN WO CONTRAST Routine 11/20/2015 1:00 PM EST Localization-related epilepsy, intractable documented in this encounter Results * MRI Brain WO Contrast (11/20/2015 1:00 PM EST) Anatomical Region Laterality Modality Head Magnetic Resonan ce Impressions 11/20/2015 5:41 PM EST IMPRESSION: 1. ??Left temporal lobe lobectomy with expected postoperative change. 2. ??Abnormal gyral pattern within the left parietal and occipital lobes associated with volume loss and gliosis. 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 Comparison also be helpful. I have personally reviewed the image(s) and the residents interpretation and agree with the findings, JAIME MENDOZA at 11/20/2015 5:41 PM Narrative 11/20/2015 5:41 PM EST EXAMINATION: MRI BRAIN WO CONTRAST CLINICAL HISTORY: epilepsy surgery, s/p L TLE 1998 at [facility] TECHNIQUE: MRI of the head was performed without intravenous contrast COMPARISON: None FINDINGS: Left temporal lobectomy has been performed with surrounding gliosis and adjacent craniotomy defect. There is a separate area of volume loss and glial cyst within the posterior left parietal lobe and adjacent occipital lobe associated with an abnormal gyral pattern. A single focus of susceptibility artifact is identified in this region. Ventricles are normal size and configuration. There is no evidence for heterotopic celis matter. The right hippocampus is normal no intracranial masses. There is a mucus retention cyst within the right maxillary sinus otherwise the paranasal sinuses are mostly clear. Procedure Note Jaime Mendoza MD - 11/20/2015 EXAMINATION: MRI BRAIN WO CONTRAST CLINICAL HISTORY: epilepsy surgery, s/p L TLE 1998 at [facility] TECHNIQUE: MRI of the head was performed without intravenous contrast COMPARISON: None FINDINGS: Left temporal lobectomy has been performed with surrounding gliosis andadjacent craniotomy defect. There is a separate area of volume loss and glial cyst within theposterior left parietal lobe and adjacent occipital lobe associated with an abnormalgyral pattern. A single focus of susceptibility artifact is identified in thisregion. Ventricles are normal size and configuration. There is no evidence for heterotopic celis matter. The right hippocampus is normal no intracranialmasses. There is a mucus retention cyst within the right maxillary sinus otherwisethe paranasal sinuses are mostly clear. IMPRESSION IMPRESSION: 1. Left temporal lobe lobectomy with expected postoperative change. 2. Abnormal gyral pattern within the left parietal and occipital lobes associated with volume loss and gliosis. 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 Comparison also be helpful. 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
--- OUTSIDE RECORDS SUMMARY | 2024-08-11 20:37 | XMS_ITS | Encounter Summary ---
Author Organization [facility] [place] [address] Care Team Providers Care Internal Combustion Engine Assembler Name Role Phone Jose Manuel Kimble MD Primary Care Provider [phone] Reason for Visit * Reason Onset Date Comments Other 06/06/2016 Encounter Details Date Type Department Care Team (Late st Contact Info) Description 06/06/2016 [place] [phone] Kwabena Garcia MD [facility] [place] [address] Other Social History Tobacco Use Types Packs/Day Years Used Date Smoking Tobacco: Never Smokeless Tobacco: Never Alcohol Use Standard Drinks/Week Comments No 0 (1 standard drink = 0.6 oz pur e alcohol) Sex and Gender Information Value Date Recorded Sex Assigned at Not on file Gender Identity Not on file Sexual Orientation Not on file documented as of this encounter Miscellaneous Notes * Addendum Note - Ella York RN - 06/07/2016 11:28 AM EDTAddended by: ELLA YORK on: 06/07/2016 11:28 AM Modules accepted: Orders * Telephone Encounter - Ella York RN - 06/07/2016 11:27 AM EDT Call placed to pt with his , Jodie, answering the phone. I let her know that Dr. Garcia would like him to start Aricept 5 mg in the morning. Script sent to pharmacy. * Telephone Encounter - Ella York RN - 06/07/2016 11:27 AM EDT Call placed to pt with his , * Telephone Encounter - Ella York RN - 06/06/2016 12:59 PM EDT Pt is ready to start taking Aricept now. This was discussed at his last appt with Dr. Garcia but a dose/frequency was not mentioned. Will forward message on to him to ask for this information and send script to pharmacy. * Telephone Encounter - Oneal Burgess - 06/06/2016 12:25 PM EDT Patient called in to speak with Dr. Garcia. Patient stated that Dr. Garcia had suggested Aricept to him as a medication. Patient stated that he would like to start this. documented in this encounter Plan of Treatment Upcoming Encounters Date Type Department Care Team (Late st Contact Info) Description 08/25/2024 9:00 AM EDT Office Visit Hematology/Oncology at [address] [phone] Pia Cooper MD [facility] [place] [address] Shayla Vuong APRN [facility] HEMATOLOGY [place] [address] 08/25/2024 9:30 AM EDT Scheduled View Only Hematology/Oncology at [address] [phone] Ekta Womack RN 08/25/2024 9:30 AM EDT Infusion Hematology Oncology at [address] [phone] documented as of this encounter Visit Diagnoses Diagnosis Mild cognitive impairment Mild cognitive impairment, so stated documented in this encounter Care Teams Internal Combustion Engine Assembler Relationship Specialty Start Date End Date Jose Manuel Kimble MD PCP - General Family Medicine 09/20/15 09/29/23 documented as of this encounter
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
--- OUTSIDE RECORDS SUMMARY | 2024-08-11 20:37 | XMS_ITS | Encounter Summary ---
[place] [address] Care Team Providers Care Street Light Repairer Name Role Phone Jose Manuel Kimble MD Primary Care Provider [phone] Encounter Details Date Type Department Care Team (Late st Contact Info) Description 01/16/2016 Telephone [place] [phone] Colby Ellis MD [facility] [place] [address] Social History Tobacco Use Types Packs/Day Years [...] encounter Miscellaneous Notes * Telephone Encounter - Colby Ellis MD - 01/16/2016 7:29 AM EST Patient feels very unsteady, vertigo, and lightheaded. Started last week when he started taking medicine. The symptoms can last 4-5 hours and his mother has the impression that the symptoms are almost constant. He has been having vomiting,dizziness and unstable gait. I advised them to go to the nearest ED for rule out of another cause of his current symptoms. If everything is fine then he may need to call Dr. Garcia today for adjustment in his current regimen. documented in this encounter Plan of Treatment Upcoming Encounters Date Type Department Care Team (Late st Contact Info) Description 08/25/2024 9:00 AM EDT Office Visit Hematology/Oncology at [address] [phone] Pia Cooper MD [facility] [address] [place] [address] Shayla Vuong APRN [facility] [place] [address] 08/25/2024 9:30 AM EDT Scheduled View Only Hematology/Oncology at [address] [phone] Ekta Womack RN 08/25/2024 9:30 AM EDT Infusion Hematology Oncology at [address] [phone] documented as of this encounter Visit Diagnoses Not on filedocumented in this encounter Care Teams Street Light Repairer Relationship Specialty Start Date End Date Jose Manuel Kimble MD PCP - General Family Medicine 09/20/15 09/29/23 documented as of this encounter
--- OUTSIDE RECORDS SUMMARY | 2024-08-11 20:37 | XMS_ITS | Encounter Summary ---
[place] [address] Care Team Providers Care Airbrush Painter Name Role Phone Jose Manuel Kimble MD Primary Care Provider Encounter Details Date Type Department Care Team (Late st Contact Info) Description 11/02/2015 Telephone [place] [phone] Alvreto Grove MD [facility] [place] [address] Social History Tobacco Use Types Packs/Day Years [...] encounter Miscellaneous Notes * Telephone Encounter - Alverto Grove MD - 11/02/2015 11:08 AM EST Called back the to inform her that Dr. Garcia recommends giving Brett an extra 400 mg of Lamictal tonight. Correction to my previous telephone note: patient is scheduled for VEEG on 11/20, not 12/04. wants to let Dr. Garcia know that [facility] close, which is where he had his surgery done. This means there are no records of his surgery. She will call with any additional concerns. * Telephone Encounter - Alverto Grove MD - 11/02/2015 6:01 AM EST called to report that patient had one seizure on 10/30 and one yesterday, described as troublefinding words and making no sense (absence seizures). No GTCs. These are the first seizures he has had since seeing Dr. Garcia on 09/25. Patient is complaining like he feels hungover - everythingis slow, his neck muscles are sore since his seizure on 10/30. No recent illness, no fevers, no alcohol. No known triggers. He's more forgetful than baseline and more tired than he usually is after seizures. No missed doses. He takes lamictal 200 mg daily and carbamazepine 200 mg BID. He is scheduled for elective VEEG next month on 12/04. I do not think he needs to be brought to the ED emergently. They [place] [place] from [facility]. I would like to give him an extra dose of an AED. Patient has already left for work this morning without his meds. She asks that I speak to Dr. Garcia and I will have either him or myself call her back later this morning. 's #: [phone] documented in this encounter Plan of Treatment Upcoming Encounters Date Type Department Care Team (Late st Contact Info) Description 08/25/2024 9:00 AM EDT Office Visit Hematology/Oncology at [address] [phone] Pia Cooper MD [facility] HEMATOLOGY [place] [address] Shayla Vuong APRN [facility] HEMATOLOGY [place] [address] 08/25/2024 9:30 AM EDT Scheduled View Only Hematology/Oncology at [address] [phone] Ekta Womack RN 08/25/2024 9:30 AM EDT Infusion Hematology Oncology at [address] [phone] documented as of this encounter Visit Diagnoses Not on filedocumented in this encounter Care Teams Airbrush Painter Relationship Specialty Start Date End Date Jose Manuel Kimble MD PCP - General Family Medicine 09/20/15 09/29/23 documented as of this encounter
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
--- OUTSIDE RECORDS SUMMARY | 2024-08-11 20:37 | XMS_ITS | Encounter Summary ---
[place] [address] Care Team Providers Care Solar Sales Associate Name Role Phone Jose Manuel Kimble MD Primary Care Provider [phone] Reason for Visit * Reason Onset Date Comments Medication Refill 04/30/2017 Encounter Details Date Type Department Care Team ([facility] Contact Info) Description 04/30/2017 [place] [phone] Margarita Munoz CMA Medication Refill Social History Tobacco Use Types Packs/Day Years [...] Telephone Encounter - Margarita Munoz CMA - 04/30/2017 10:56 AM EDT New RX for Vimpat 200 MG tablets faxed to requested pharmacy, [facility] [facility] [address] [place]. documented in this encounter Plan of Treatment Upcoming Encounters Date Type Department Care Team ([facility] Contact Info) Description 08/25/2024 9:00 AM EDT Office Visit Hematology/Oncology at [address] [phone] Pia Cooper MD [facility] [address] [place] [address] Shayla Vuong APRN [facility] [place] [address] 08/25/2024 9:30 AM EDT Scheduled View Only Hematology/Oncology at [address] [phone] Ekta Womack RN 08/25/2024 9:30 AM EDT Infusion Hematology Oncology at [address] [phone] documented as of this encounter Visit Diagnoses Not on filedocumented in this encounter Care Teams Solar Sales Associate Relationship Specialty Start Date End Date Jose Manuel Kimble MD PCP - General Family Medicine 09/20/15 09/29/23 documented as of this encounter
--- OUTSIDE RECORDS SUMMARY | 2024-08-11 20:37 | XMS_ITS | Encounter Summary ---
Author Organization [facility] [place] [address] Care Team Providers Care Spinning Lathe Operator Name Role Phone Jose Manuel Kimble MD Primary Care Provider [phone] Reason for Visit * Reason Onset Date Comments Medication Refill 07/14/2017 Encounter Details Date Type Department Care Team (Late Contact Info) Description 07/14/2017 [place] [address] Kwabena Garcia MD [facility] [place] [address] Social History Tobacco Use Types Packs/Day Years [...] Miscellaneous Notes * Telephone Encounter - Vasile Mcmullen, RN - 07/14/2017 3:28 PM EDT Pharmacy requesting med refill for patient. Last appt 01/22/16 Next not scheduled. documented in this encounter Plan of Treatment Upcoming Encounters Date Type Department Care Team (Late st Contact Info) Description 08/25/2024 9:00 AM EDT Office Visit Hematology/Oncology at [address] [phone] Pia Cooper MD [facility] [place] [address] Shayla Vuong APRN [facility] [place] [address] 08/25/2024 9:30 AM EDT Scheduled View Only Hematology/Oncology at [address] [phone] Ekta Womack RN 08/25/2024 9:30 AM EDT Infusion Hematology Oncology at [address] [phone] documented as of this encounter Visit Diagnoses Not on filedocumented in this encounter Care Teams Spinning Lathe Operator Relationship Specialty Start Date End Date Jose Manuel Kimble MD PCP - General Family Medicine 09/20/15 09/29/23 documented as of this encounter
--- OUTSIDE RECORDS SUMMARY | 2024-08-11 20:37 | XMS_ITS | Encounter Summary ---
[place] [address] Care Team Providers Care Floor Tech Name Role Phone Jose Manuel Kimble MD Primary Care Provider [phone] Reason for Visit * Reason Onset Date Comments Medication Refill 01/14/2017 Encounter Details Date Type Department Care Team ([facility] Contact Info) Description 01/14/2017 [place] [phone] Margarita Munoz CMA Medication Refill Social History [...] Telephone Encounter - Margarita Munoz CMA - 01/14/2017 11:53 AM EST New RX for Vimpat 200 MG tablets faxed to requested pharmacy, [facility] [facility] [address] [facility]. documented in this encounter Plan of Treatment Upcoming Encounters Date Type Department Care Team ([facility] Contact Info) Description 08/25/2024 9:00 AM EDT Office Visit Hematology/Oncology at [address] [phone] Pia Cooper MD [facility] [place] [address] Shayla Vuong APRN [facility] [place] [address] 08/25/2024 9:30 AM EDT Scheduled View Only Hematology/Oncology at [address] [phone] Ekta Womack RN 08/25/2024 9:30 AM EDT Infusion Hematology Oncology at [address] [phone] documented as of this encounter Visit Diagnoses Not on filedocumented in this encounter Care Teams Floor Tech Relationship Specialty Start Date End Date Jose Manuel Kimble MD PCP - General Family Medicine 09/20/15 09/29/23 documented as of this encounter
--- OUTSIDE RECORDS SUMMARY | 2024-08-11 20:37 | XMS_ITS | Encounter Summary ---
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 AM EST Neurology Progress Note Patient Name: Brett Campos Admit Date: 11/20/2015 Attending: Rodolfo Meek MD Patient ID: Brett Campos is a 40 y.o.. right-handed male with PMHx epilepsy, s/p L Temporal Lobectomy 1998 @ [facility], congenital lazy eye who is admitted to the video EEG monitoring unit for further evaluation and localization of seizures in evaluation of possible surgical versus neuropace options. 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 Medications: Scheduled Meds: ??? lamoTRIgine 200 mg Oral BID ??? carBAMazepine 400 mg Oral Daily with breakfast And ??? carBAMazepine 600 mg Oral Nightly ??? sodium chloride 0.9 % 5 mL Intravenous BID ??? sertraline 50 mg Oral Daily Continuous Infusions: PRN Meds:.ketorolac, diphenhydrAMINE, ondansetron, prochlorperazine OR prochlorperazine, sodiumchloride 0.9 %, lidocaine, acetaminophen, docusate sodium, bisacodyl, magnesium hydroxide Physical Exam: Vitals: Temp: [36.6 ??C (97.9 ??F)-37 ??C (98.6 ??F)] Heart Rate: [76-91] Resp: [16-18] BP: (116-118)/(70-78) SpO2: [96 %] Constitutional: Patient of apparent stated age, no acute distress CV: RRR, S1, S2, no murmur Resp: CTAB Neuro: MS: Alert, oriented, clear language, no dysarthria CN: Left exotropia, PERRL, EOMI, visual mcgarry full, no facial asymmetry Motor: Normal bulk and tone. 5/5 strength in bilateral upper and lower extremities Sensation: Intact to light touch Reflexes: 2+ DTRs, downgoing toes Coordination: Finger to nose intact, rapid alternating movements intact Gait: Stable, steady Labs: No results found for this or any previous visit (from the past 24 hour(s)). Diagnostic Tests and Imaging: Brain MRI (11/20/15): 1. Left temporal lobe lobectomy with expected postoperative change. 2. Abnormal gyral pattern within the left parietal and occipital lobes associated with volume loss and gliosis. 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 Comparison also be helpful. VEEG 11/22-11/23 - prelim reads c/w Left temporal lobe process, new seizures coming from R side Please see official procedure note filed from today. Assessment: This is a 40 y.o. right-handed male with PMHx epilepsy s/p left temporal lobe surgery in 1998, congenital exotropia, who presents for video EEG monitoring for further evaluation and localization of seizures. Seizure semiology, as well as, prior history of left temporal lobe epilepsy, suggests focalepilepsy. He had an MRI brain on admission; report is pending. He has been refractory to treatment t hus far and may benefit from surgery or a Neurostimulator, thus admitted to help localize. 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 Patient had multiple seizure events after withdrawal of AEDs, VEEG reveals new R frontal lobe sz, No recurrence of seizure activity overnight, anticipate discharge today with clonazepam 1mg BID x 1 week for additional coverage. Plan: 1. 24 hour Video EEG monitoring 2. Seizure precautions 3. Resumed home Carbatrol and Lamictal yesterday, tolerating without complications. > will continue to monitor neurologic status closely, anticipate will be unable to 4. Continue home medication of Sertraline 50mg QD 5. Prophylaxis: Tylenol for pain, ambulate frequently to prevent DVTs. CODE STATUS: Full ROBYN KAYE MD Neurology resident PGY 2 General neurology pager [phone] 11/24/2015 Associated attestation - Howard Cheek MD - 11/25/2015 5:18 AM EST Neurology Attending Note Howard Cheek MD PhD (pager [phone]) I have seen and examined Brett Campos on 11/[address] Kaye, whose note contains our concurrent history, exam, data/imaging review and jointly formulated assessment and plan. * Adelaide Sweeney RN - 11/23/2015 11:11 AM EST Office of Care Management (OCM)/Hand Grinder (CM) Discharge planning CM Adelaide Sweeney RN pager [phone] Per discussion in discharge planning rounds plan for d/c tomorrow; new rt frontal lobe seizures; med adjustments; patient asking to d/c today; no d/c needs anticipated. * Brittaney White RN - 11/23/2015 7:03 AM EST At 6am this advertising writer was in room given patient PRN medication for nausea and headache when patient started pushing medications away, SpO2 dropped to 87-89% on RA, unsustained but several times, HR 95-105. Patient became unable to speak or state name. This advertising writer pushed sz button. Patient pushed this advertising writer away when trying to administer O2 nonrebreather and this advertising writer held in front of patient. Patient rolling from side to side in the bed, trying to get up. Patient was not able to speak or follow commands, was picking at VEEG leads, Phrase pink elephant given. patient not able to repeat phrases or recall phrase This lasted 3-5 minutes. Post ictal patient was able to state name and follow commands but was very somnolent, lethargic. Treated with: 2mg ataivan IV one time dose Robyn Kaye MD notified and assessed at bedside Post ativan patient resting comfortably. Patient was not inconitent. Was not able to give the PO benadryl, did not give the IV toradol (see MAR). Robyn Kaye MD aware. * Robyn Kaye MD - 11/23/2015 5:02 AM EST Neurology Progress Note Patient Name: Brett Campos Admit Date: 11/20/2015 Attending: Rodolfo Meek MD Patient ID: Brett Campos is a 40 y.o.. right-handed male with PMHx epilepsy, s/p L Temporal Lobectomy 1998 @ [facility], congenital lazy eye who is admitted to the video EEG monitoring unit for further evaluation and localization of seizures in evaluation of possible surgical versus neuropace options. 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 Received 2mg ativan IV x1 around 2200, with significant residual nausea and headache throughout the night,treated with prn zofran and toradol. - repeat seizure event around 0615 am today, desaturating and intermittently responsive to verbal commands. No cooperating with O2 supplementation. Additional 2 mg ativan given - this morning, resting comfortably but sedated. VSS Medications: Scheduled Meds: ??? sodium chloride 0.9 % 5 mL Intravenous BID ??? sertraline 50 mg Oral Daily Continuous Infusions: PRN Meds:.ondansetron, ketorolac, prochlorperazine, diphenhydrAMINE, sodium chloride 0.9 %, lidocaine, acetaminophen, docusate sodium, bisacodyl, magnesium hydroxide Physical Exam: Vitals: Temp: [36.5 ??C (97.7 ??F)-36.8 ??C (98.2 ??F)] Heart Rate: [66-84] Resp: [18] BP: (106-126)/(61-80) SpO2: [96 %-99 %] Constitutional: Patient of apparent stated age, no acute distress CV: RRR, S1, S2, no murmur Resp: CTAB Neuro: MS: Alert, oriented, clear language, no dysarthria CN: Left exotropia, PERRL, EOMI, visual mcgarry full, no facial asymmetry Motor: Normal bulk and tone. 5/5 strength in bilateral upper and lower extremities Sensation: Intact to light touch Reflexes: 2+ DTRs, downgoing toes Coordination: Finger to nose intact, rapid alternating movements intact Gait: Stable, steady Labs: No results found for this or any previous visit (from the past 24 hour(s)). Diagnostic Tests and Imaging: Brain MRI (11/20/15): 1. Left temporal lobe lobectomy with expected postoperative change. 2. Abnormal gyral pattern within the left parietal and occipital lobes associated with volume loss and gliosis. 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 Comparison also be helpful. VEEG 11/22-11/23 - prelim reads c/w Left temporal lobe process, new seizures coming from R side Please see official procedure note filed from today. Assessment: This is a 40 y.o. right-handed male with PMHx epilepsy s/p left temporal lobe surgery in 1998, congenital exotropia, who presents for video EEG monitoring for further evaluation and localization of seizures. Seizure semiology, as well as, prior history of left temporal lobe epilepsy, suggests focalepilepsy. He had an MRI brain on admission; report is pending. He has been refractory to treatment t hus far and may benefit from surgery or a Neurostimulator, thus admitted to help localize. Patient has had multiple seizure events in past 24 hours, given total 4 mg ativan, will plan to restart home medications today. Given recent withdrawal of meds, patient is still at a high risk for seizures and status epilepticus, warranting inpatient admission for close monitoring and safety precautions. 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 No seizures overnight. Will continue VEEG monitoring. Plan: 1. 24 hour Video EEG monitoring 2. Seizure precautions 3. Will plan to restart home Carbatrol and Lamictal today > will continue to monitor neurologic status closely, anticipate will be unable to 4. Continue home medication of Sertraline 50mg QD 5. Prophylaxis: Tylenol for pain, ambulate frequently to prevent DVTs. CODE STATUS: Full ROBYN KAYE MD Neurology resident PGY 2 General neurology pager [phone] 11/23/2015 Associated attestation - Guilherme Reynolds MD - 11/28/2015 12:39 PM EST NEUROLOGY / EPILEPSY ATTENDING ADDENDUM AND ATTESTATION - I evaluated the patient with the Neurology Residents and students during bedside rounds. I have reviewed the medical records and patient's history, as well as the resident???s and student's history and examination findings and I agree with the details as written. My neurologic examination confirms the resident???s and student's findings. We formulated the assessment and plan after a detailed discu ssion, as documented. Guilherme Reynolds M.D., Ph.D. Dog Trainer of Neurology * Ellie Connelly RN - 11/22/2015 10:54 PM EST 2203 szac alarm sounded. Pt seen with head turned to the right. He was holding a cup of coffee withhis right hand. He was shaking both arms and his legs were jerking. Coffee was taken from him and push button was activated. His heart rate elevated to 158 and oxygen decreased to 82. Oxygen placed for a few seconds after seizure was done. The event lasted about 1-1.5 minutes. He was asleep for about 10-15 minutes, then awakened confused and having garbled speech. Dr. Kaye notified and 2 mg ativan given as ordered. He vomited a small amount of liquid. No incontinence and no tongue biting. He was rolling from side to side in bed several times. He was cleaned up by RN and THERAPEUTIC RECREATION DIRECTOR. No further seizure activity noted. * Tamie Luz RN - 11/22/2015 7:43 PM EST 18:29:41 - PB event. RN responded to szac alarm. Entered room to find pt staring with eyes wide open and head turned to right. Unresponsive to RN questions. HR elevated to 123; sao2 down to low 80s. Pt turned head further to right, then rotated it on his pillow with neck flexed backward, then turned to left all the while with tonic neck. No lower leg involvement. Arms tugging and picking at his electronics, but unable to follow commands to squeeze hands. Pupils were fixed @ 4 and mildly rolled back. Ictal phase ~ 60-90 seconds. Pt visibly relaxed at onset of post ictal phase. HR and SaO2 back to WNL. Pt's eyes closed and was not able to respond to manager club's questions/commands for ~ 10 mins. Made attempts to vocalize on and off during that time. Post ictal phase ~ 20-25 mins before pt co uld ID glasses and tell their use. He reported he had a headache. at bedside. * Linnea Montgomery RN - 11/22/2015 3:07 PM EST 1432 Seizak alarm: pt found, eyes open, unresponsive. There were no motor activity or automatisms observed. Closed his eyes, but opened them to command. Grasped my hand to command but would not release. Strength was equal bilaterally. Pupils 4 mm. Responded with hums, then incorrect words. Able to r ead before able to identify objects. Pupils became asymmetric (Left 3, Right 4) and unresponsive. Used some incorrect words when answering questions. Oriented to self, then place, then much later time. Pupils became equal 3 mm and responsive. Eventually able to identify some objects, 30 minutes later identified all objects and was back at neurological baseline. * Robyn Kaye MD - 11/22/2015 7:36 AM EST Neurology Progress Note Patient Name: Brett Campos Admit Date: 11/20/2015 Attending: Rodolfo Meek MD Patient ID: Brett Campos is a 40 y.o.. right-handed male with PMHx epilepsy, s/p L Temporal Lobectomy 1998 @ [facility], congenital lazy eye who is admitted to the video EEG monitoring unit for further evaluation and localization of seizures in evaluation of possible surgical versus neuropace options. 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 Preceded by typical aura - home AEDs continue to be held - sleep deprived to 2 am last night - this morning, patient was evaluated and found in no acute distress. He is motivated to have an event, hoping to be home by xas Medications: Scheduled Meds: ??? sodium chloride 0.9 % 5 mL Intravenous BID ??? sertraline 50 mg Oral Daily Continuous Infusions: PRN Meds:.sodium chloride 0.9 %, lidocaine, acetaminophen, docusate sodium, bisacodyl, magnesium hydroxide Physical Exam: Vitals: Temp: [36.4 ??C (97.5 ??F)-36.8 ??C (98.2 ??F)] Heart Rate: [66-71] Resp: [18-20] BP: (102-145)/(61-83) SpO2: [95 %-98 %] Constitutional: Patient of apparent stated age, no acute distress CV: RRR, S1, S2, no murmur Resp: CTAB Neuro: MS: Alert, oriented, clear language, no dysarthria CN: Left exotropia, PERRL, EOMI, visual mcgarry full, no facial asymmetry Motor: Normal bulk and tone. 5/5 strength in bilateral upper and lower extremities Sensation: Intact to light touch Reflexes: 2+ DTRs, downgoing toes Coordination: Finger to nose intact, rapid alternating movements intact Gait: Stable, steady Labs: No results found for this or any previous visit (from the past 24 hour(s)). Diagnostic Tests and Imaging: Brain MRI (11/20/15): 1. Left temporal lobe lobectomy with expected postoperative change. 2. Abnormal gyral pattern within the left parietal and occipital lobes associated with volume loss and gliosis. 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 Comparison also be helpful. VEEG prelim reads c/w Left temporal lobe process. Please see official procedure note Assessment: This is a 40 y.o. right-handed male with PMHx epilepsy s/p left temporal lobe surgery in 1998, congenital exotropia, who presents for video EEG monitoring for further evaluation and localization of seizures. Seizure semiology, as well as, prior history of left temporal lobe epilepsy, suggests focalepilepsy. He had an MRI brain on admission; report is pending. He has been refractory to treatment t hus far and may benefit from surgery or a Neurostimulator, hence this admission to help localize. Antiepileptic medications, Carbatrol and Lamictal, will continue to be held. This places the patient at a high risk for seizures and status epilepticus, warranting inpatient admission for close monitoring and safety precautions. 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 No seizures overnight. Will continue VEEG monitoring. AEDs will continue to be held today. Plan: 1. 24 hour Video EEG monitoring 2. Seizure precautions 3. Carbatrol and Lamictal were held 4. Continue remaining home medication of Sertraline 50mg qdaily. 5. Prophylaxis: Tylenol for pain, ambulate frequently to prevent DVTs. CODE STATUS: Full ROBYN KAYE MD Neurology resident PGY 2 General neurology pager [phone] 11/22/2015 Associated attestation - Guilherme Reynolds MD - 11/28/2015 12:37 PM EST NEUROLOGY / EPILEPSY ATTENDING ADDENDUM AND ATTESTATION - I evaluated the patient with the Neurology Residents and students during bedside rounds. I have reviewed the medical records and patient's history, as well as the resident???s and student's history and examination findings and I agree with the details as written. My neurologic examination confirms the resident???s and student's findings. We formulated the assessment and plan after a detailed discu ssion, as documented. Guilherme Reynolds M.D., Ph.D. Dog Trainer of Neurology * Tamie Luz RN - 11/21/2015 11:57 AM EST 10:03 - PB event. Patient pushed his sz button, reporting to RN he was having a sz and he knew he was because he felt numbness/tingling all over. Pt 's speech clear throughout. HR elevated to 100-101. SaO2 WNL throughout. Pt did not lose contact with his surrounding and spoke clearly, freely, with manager club throughout. He reported his numbness/tingling lasted ~ 60 seconds which he stated to RN wastypical of his events. MDs notified of this episode and his AED medications have been discontinued. Y * Luz Maria Lechuga RN - 11/21/2015 11:12 AM EST Office of Care Management (OCM) / Hand Grinder(CM)/ Initial Assessment Discussed patient with Provider Team and in multidisciplinary discharge-planning rounds. Reviewed record and interviewed patient. Introduced/reviewed CM role and services accepted. REASON for HOSPITALIZATION:Seizure PMH No past medical history on file. PREVIOUS FUNCTIONAL STATUS:independent CURRENT FUNCTIONAL STATUS:independent SOCIAL / FAMILY SUPPORTS: spouse ADVANCE DIRECTIVES: Not on file, defers social work involvement to create HEALTH /PRESCRIPTION COVERAGE: [employer] CURRENT HOME/COMMUNITY SERVICES/EQUIPMENT: none ACCOUNTS PAYABLE ASSOCIATE REFERRAL: not needed at this time PRIMARY CARE PHYSICIAN: JANEE SALINAS MD [address] [facility] [id number] POTENTIAL DISCHARGE NEEDS: none ANTICIPATED BARRIERS TO DISCHARGE:none TRANSPORTATION @ D/C: , prvt car PLAN: CM will continue to monitor progress, follow for continuity of care and assist with dischargeplanning while hospitalized . * Colby Ellis MD - 11/21/2015 7:58 AM EST Neurology Progress Note Patient Name: Brett Campos Admit Date: 11/20/2015 Attending: Rodolfo Meek MD, Patient ID: Brett Campos is a 40 y.o.. right-handed male with PMHx epilepsy, s/p L Temporal Lobectomy 1998 @ [facility], congenital lazy eye who is admitted to the video EEG monitoring unit for further evaluation and localization of seizures in evaluation of possible surgical versus neuropace options. 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 -Had a god night -No events overnight. -Continues VEEG -Brain MRI suggestive of cortical dysplasia with a superimposed chronic insult on left parietal andoccipital lobes. -Labs: CBC, BMP and electrolyte panel were within normal limits. Carbamazepine 7.6 mg/l. Medications: carBAMazepine, lamoTRIgine, and sertraline Physical Exam: Vitals: Temp: [36.8 ??C (98.2 ??F)] Heart Rate: [89] Resp: [18] BP: (114)/(52) SpO2: [98 %] Constitutional: Patient of apparent stated age, no acute distress CV: RRR, S1, S2, no murmur Resp: CTAB Neuro: MS: Alert, oriented, clear language, no dysarthria CN: Left exotropia, PERRL, EOMI, visual mcgarry full, no facial asymmetry Motor: Normal bulk and tone. 5/5 strength in bilateral upper and lower extremities Sensation: Intact to light touch Reflexes: 2+ DTRs, downgoing toes Coordination: Finger to nose intact, rapid alternating movements intact Gait: Stable, steady Labs: Recent Results (from the past 24 hour(s)) Electrolytes panel Result Value Ref Range Sodium 143 135 - 145 mmol/L Potassium 3.7 3.5 - 5.0 mmol/L Chloride 104 98 - 107 mmol/L CO2 28 22 - 31 mmol/L Anion Gap 11 5 - 15 mmol/L BUN Result Value Ref Range BUN 13 10 - 20 mg/dL Creatinine Result Value Ref Range Creatinine 1.03 0.80 - 1.50 mg/dL Estimated GFR >60 >=60 Hepatic Function Panel Result Value Ref Range Total Protein 7.1 6.1 - 8.0 gm/dL Albumin 4.3 3.2 - 5.2 gm/dL AST 13 0 - 39 unit/L ALT 16 0 - 55 unit/L Alk Phos 66 40 - 120 unit/L Total Bilirubin 0.2 0.2 - 1.3 mg/dL Bili, Direct 0.1 0.0 - 0.3 mg/dL Carbamazepine level, total Result Value Ref Range Carbamazepine Lvl 7.6 (L) 8.0 - 12.0 mg/L Hemogram Result Value Ref Range WBC 4.2 4.0 - 10.0 x10(3)/mcL RBC 4.68 4.63 - 6.08 x10(6)/mcL Hemoglobin 14.1 13.7 - 17.5 gm/dL Hematocrit 40.9 40.0 - 51.0 % MCV 87.4 79.0 - 92.0 fL MCH 30.1 25.6 - 32.2 pg MCHC 34.5 32.0 - 36.5 gm/dL Platelets 214 145 - 370 x10(3)/mcL RDWSD 42.0 35.0 - 46.0 fL RDWCV 13.2 10.9 - 14.4 % MPV 9.8 9.0 - 12.0 fL Differential, Automated Result Value Ref Range Neutrophils % 62.9 % Neutr Abs (ANC) 2.61 1.50 - 6.30 x10(3)/mcL Lymphocytes % 27.2 % Lymphocytes Abs 1.1 1.0 - 3.6 x10(3)/mcL Monocytes % 5.8 % Monocyte Abs 0.2 0.2 - 1.0 x10(3)/mcL Eosinophils % 3.4 % Eosinophils Abs 0.1 0.0 - 0.5 x10(3)/mcL Basophils % 0.5 % Basophils Abs 0.0 0.0 - 0.2 x10(3)/mcL Immature Gran % 0.20 % Mary Gran Abs 0.01 0.00 - 0.05 x10(3)/mcL Diagnostic Tests and Imaging: Brain MRI (11/20/15): 1. Left temporal lobe lobectomy with expected postoperative change. 2. Abnormal gyral pattern within the left parietal and occipital lobes associated with volume loss and gliosis. 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 Comparison also be helpful. Assessment: This is a 40 y.o. right-handed male with PMHx epilepsy s/p left temporal lobe surgery in 1998, congenital exotropia, who presents for video EEG monitoring for further evaluation and localization of seizures. Seizure semiology, as well as, prior history of left temporal lobe epilepsy, suggests focalepilepsy. He had an MRI brain on admission; report is pending. He has been refractory to treatment t hus far and may benefit from surgery or a Neurostimulator, hence this admission to help localize. Antiepileptic medications, Carbatrol and Lamictal night dose were held last evening. This places the patient at a high risk for seizures and status epilepticus, warranting inpatient admission for closemonitoring and safety precautions. Brain MRI that suggested cortical dysplasia with superimposed chronic insult on the left parietal and occipital lobes. No seizures overnight. Will continue VEEG monitoring. AED will continue to be held today. Plan: 1. 24 hour Video EEG monitoring 2. Seizure precautions 3. Carbatrol and Lamictal were held 4. Continue remaining home medication of Sertraline 50mg qdaily. 5. Prophylaxis: Tylenol for pain, ambulate frequently to prevent DVTs. CODE STATUS: Full Colby Rodriguez Neurology resident PGY 2 General neurology pager [phone] Associated attestation - Guilherme Reynolds MD - 11/28/2015 12:35 PM EST NEUROLOGY / EPILEPSY ATTENDING ADDENDUM AND ATTESTATION - I evaluated the patient with the Neurology Residents and students during bedside rounds. I have reviewed the medical records and patient's history, as well as the resident???s and student's history and examination findings and I agree with the details as written. My neurologic examination confirms the resident???s and student's findings. We formulated the assessment and plan after a detailed discu ssion, as documented. Guilherme Reynolds M.D., Ph.D. Dog Trainer of Neurology * Veronica Garnica - 11/20/2015 2:38 PM EST Pt to floor 1430. MD Gibbs to bedside. IV team notified. documented in this encounter H&P Notes * Мария Gibbs PA - 11/20/2015 3:05 PM EST [facility] NEUROLOGY HISTORY AND PHYSICAL Referring Provider: Dr. Janee Salinas Presenting Diagnosis/Chief Complaint: Seizures History of Present Illness/Description of Symptoms: rBett Campos is a 40 y.o. right-handed male with PMHx epilepsy, s/p L Temporal Lobectomy 1998 @[facility], congenital lazy eye who is admitted to the video EEG monitoring unit for further evaluation and localization of seizures. 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 He had left temporal lobe surgery in 1998 at [facility] and responded well with seizure cessation. In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 by the [facility]iology [facility]. The 10/20 international system of electrode placement was used and bipolar and referential electrode montages were recorded. In addition to EEG the patient was monitored for EKG and lateral/vertical eye movements. Video was recorded during the session. The duration of the recording was >14 hours. The patient was recorded during wakefulness,drowsiness, and sleep. ELECTROENCEPHALOGRAPHER'S REPORT Background During the awake state with the eyes closed the background consisted of a well- organized moderate amplitude, 9 Hz posterior dominant rhythm that attenuated appropriately with eye opening. The waveforms over the left temporal lobe (T3, T5) exhibit slowing to 5Hz. There is a prominent EKG artifact seen in the recording. Sleep Stage II/III sleep was obtained and consisted of symmetrical sleep spindles, vertex sharp waves, and diffuse delta slowing. Abnormal Interictal Activity None Clinical Events None Provocative Maneuvers Hyperventilation was not performed. Photic stimulation was not performed. INTERPRETATION This EEG is notable for focal slowing over the mid left temporal lobe. No epileptiform features or seizures were noted. CLINICAL CORRELATION The slowing over the mid left temporal region suggests focal dysfunction or structural abnormality.Will continue to monitor for seizures. Dada Polo MD, PhD ([email or web address]) Epilepsy Fellow Personal Pager #[phone] Associated attestation - Guilherme Reynolds MD - 11/28/2015 12:45 PM EST EPILEPSY ATTENDING ADDENDUM - I reviewed the EEG with the [employer]/Epilepsy fellow, and I agree with the interpretation as documented. Guilherme Reynolds MD, PhD Dog Trainer of Neurology [facility] Epilepsy [place] Clinical Neurophysiology Laboratory documented in this encounter Miscellaneous Notes * Plan of Care - Birgit Martel RN - 11/24/2015 10:38 AM EST Problem: General Plan of Care Goal: Plan of Care Review Outcome: Outcome (s) achieved Date Met: 11/24/15 11/24/15 1036 Plan of Care Review Plan of Care Outcome Status outcome achieved Progress progress toward functional goals as expected Coping/Psychosocial Response Interventions Plan of Care Reviewed with patient;spouse OUTCOME EVALUATION NOTE: OUTCOME SUMMARY: Patient d/c'd at 10:37 AM. Patient left a&ox4, AVSS, PERRLA, lungs clear. Patient Much more alert today, able to tolerate PO intake well. Took AM meds with no problem. Reviewed d/c paperwork withpatient and , all questionsa answered. Patient understands new medications, what to continue taking, and when his next appointment is. Patient left with all belongings in personal vehicle via spouse. CPG OUTCOME EVALUATION: Goal: Individualization and Mutuality Outcome: Outcome (s) achieved Date Met: 11/24/15 11/20/15 1700 Mutuality/Individual Preferences What anxieties, fears or concerns do you have about your health or care? none What questions do you have about your health or care? none What information would help us give you more personalized care? none Goal: Fall Prevention-Safe Patient Handling Outcome: Outcome (s) achieved Date Met: 11/24/15 11/24/15 0800 Safety Interventions Safety Precautions/Fall Reduction bed alarm;environmental modification;fall reduction program maintained;family at bedside Musculoskeletal Interventions Activity/Level of Assistance up in room;ambulated;with stand by assist Positioning independent Muscle Strengthening personal routines for BADL/IADL promoted Self-Care Promotion independence encouraged while providing assistance Gordon Fall Risk History of Falling 0 Secondary Diagnosis 15 Ambulatory Aids 0 Intravenous Therapy/Heparin/Saline Lock 20 Gait/Transferring 0 Mental Status 0 Score 35 OTHER Gordon Fall Risk High Goal: Infection Control Outcome: Outcome (s) achieved Date Met: 11/24/15 11/24/15 0800 Coping/Psychosocial Response Interventions Counseling calming techniques promoted;emotional support provided;personal strengths integrated Safety Interventions Isolation Precautions standard precautions maintained Infection Prevention bronchial hygiene promoted;environmental surveillance;hydration promoted;nutrition promoted;promote handwashing;rest/sleep promoted Goal: Discharge Needs Assessment Outcome: Outcome (s) achieved Date Met: 11/24/15 11/21/15 043 Discharge Needs Assessment Concerns to be Addressed no discharge needs identified Readmission Within the Last 30 Days no previous admission in last 30 days Equipment Needed After Discharge none Current Health Anticipated Changes Related to Illness none Self-Care Equipment Currently Used at Home none Living Environment Transportation Available car;family or friend will provide Problem: Seizure Disorder/Epilepsy (Adult, Obstetrics) Goal: Signs and symptoms of listed potential problems will be absent or manageable (reference (Seizure Disorder/Epilepsy (Adult, Obstetrics)) CPG) Outcome: Outcome (s) achieved Date Met: 11/24/15 11/24/15 103 Seizure Disorder/Epilepsy Problems Assessed (Seizure Disorder/Epilepsy) all Problems Present (Seizure Disorder/Epilepsy) none Problem: Fall/Trauma/Injury Risk (Adult, Obstetrics) Goal: Identify Signs and Symptoms and Related Risk Factors Signs and symptoms and related risk factors are identified upon initiation of Human Response Clinical Practice Guideline (CPG) Outcome: Outcome (s) achieved Date Met: 11/24/15 11/21/15 043 Fall/Trauma/Injury Risk Environmental Related Risk Factors (Fall/Trauma/Injury Risk) environment unfamiliar Treatment Related Related Risk Factors (Fall/Trauma/Injury Risk) invasive/noninvasive equipment Signs and Symptoms (Fall/Trauma/Injury Risk) presence of risk factors Goal: Absence of Trauma/Injury/Falls Patient will demonstrate the desired outcomes. Outcome: Outcome (s) achieved Date Met: 11/24/15 11/24/15 1036 Fall/Trauma/Injury Risk (Adult, Obstetrics) Absence of Trauma/Injury/Falls achieves outcome Problem: Skin Integrity Impairment, Risk/Actual (Adult, Obstetrics) Goal: Identify Signs and Symptoms and Related Risk Factors Signs and symptoms and related risk factors are identified upon initiation of Human Response Clinical Practice Guideline (CPG) Outcome: Outcome (s) achieved Date Met: 11/24/15 Goal: Skin Integrity/Wound Healing Patient will demonstrate the desired outcomes. Outcome: Outcome (s) achieved Date Met: 11/24/15 11/24/15 1036 Skin Integrity Impairment, Risk/Actual (Adult, Obstetrics) Skin Integrity/Wound Healing achieves outcome * Plan of Care - Brittaney White RN - 11/24/2015 2:42 AM EST Problem: General Plan of Care Goal: Plan of Care Review Outcome: Ongoing (Interventions Implemented as Appropriate) 11/21/15 0432 11/23/151999 Plan of Care Review Plan of Care Outcome Status ongoing (interventions implemented as appropriate) -- Progress no change -- Coping/Psychosocial Response Interventions Plan of Care Reviewed with -- patient;spouse OUTCOME SUMMARY: VSS, Patient not on tele. PERRL, A&Ox4, Speech is clear, logical, Lungs clear. Patient is on RA, 5/5 strengths all extremities. No numbness or tingling Patient takes pills whole IV site Left forearm Gauge: 22 Date inserted:11/20 drsg C/D/I Patient reports had persistent headache pain Treated with PRN acetaminophen PO and PRN toradol I. Patient had N/V post ictal. Treated with PRN zofran IV Patient diet: regular Bowel sounds active in all quadrants To urinate patient ambulates to bathroom, LBM: 11/22 WT: 83.7 kg on 11/22 Standard precautions maintained. Patient able to turn self, visitors/callers: stayed in room PLAN MOVING FORWARD: Plans for D/C to home when medically able possibly on Friday Promote patient OOB to chair Continue to monitor Pain management Maintain patient safety Patient will continue to undergo VEEG monitoring uptrate AED's POC and Goals of Care: 1. Maintain hemodynamic stability = freq VS assessment/monitoring; patient head to toe assessment 2. Maintain airway, assess WOB, and monitor SPO2 3. Monitor for changes in neuro status/stability = Q4hr Neuro assessments per protocol 4. Assess all lab values with a focus on abnormalities which will negatively impact patient homeostasis 5. Monitor I/O and report significant variation from norm 6. Maintain patient safety and safe environment of care 7. Prevent injury from falls, IV infiltrates, aspiration, skin breakdown, RIZWANA, or patient confusion(see related actions & documentation in eDH) 8. Articulate pt status clearly & concisely to interdisciplinary care team in all communications, at all times 9. Communicate effectively and compassionately to patient and patient's family 10. Make effective use of all DH resources to ensure optimal patient care, safety, and patient/family experience 11. Standard precautions per policy 12. INDIVIDUALIZED FALL PREVENTION: fall risk precautions maintained.Patient is cooperative. Patient able to reliably summon for assistance Bed in low position. Bed alarms with 4 side rails raised at all times patient is in bed as per VEEGprotocol. Tabs/chair alarms on at all times when patient is out of bed. Staff inside of bathroom with patient at all times. Tolieting offered. Bathing/hygeine/dressing assistance provided while encouraging independence. Environment clear of obstacles/tripping hazard. Lighting provided/adjusted. Patient instructed in use of call gray. call gray within reach at all times. Patient will remain free from falls this shift. ASSISTANCE: To ambulate patient is SBA, 1 gage (post ictal) SUPERVISION: patient is within reach assist with all ADL's, when patient is out of bed, and while patient is in bathroom SURVEILLANCE: Purposeful hourly rounding done, masimo, room near nurses station, telemetry, family at bedside, call gray within reach. 30 minute safety checks Goal: Individualization and Mutuality Outcome: Ongoing (Interventions Implemented as Appropriate) 11/20/15 1700 Mutuality/Individual Preferences What anxieties, fears or concerns do you have about your health or care? none What questions do you have about your health or care? none What information would help us give you more personalized care? none Goal: Fall Prevention-Safe Patient Handling Outcome: Ongoing (Interventions Implemented as Appropriate) 11/23/15 1000 11/23/15 2000 11/24/15 0000 Safety Interventions Safety Precautions/Fall Reduction -- -- bed alarm;fall reduction program maintained;family at bedside;lighting adjusted for task/safety;low bed;nonskid shoes/slippers when out of bed;room near unit station;seizure precautions Musculoskeletal Interventions Activity/Level of Assistance with stand by assist -- -- Positioning -- -- independent Muscle Strengthening personal routines for BADL/IADL promoted -- -- Self-Care Promotion independence encouraged while providing assistance -- -- Gordon Fall Risk History of Falling -- 0 -- Secondary Diagnosis -- 15 -- Ambulatory Aids -- 0 -- Intravenous Therapy/Heparin/Saline Lock -- 20 -- Gait/Transferring -- 0 -- Mental Status -- 0 -- Score -- 35 -- OTHER Gordon Fall Risk -- Med -- Goal: Infection Control Outcome: Ongoing (Interventions Implemented as Appropriate) 11/23/15199911/24/15 0000 Coping/Psychosocial Response Interventions Counseling calming techniques promoted;emotional support provided;goal setting facilitated;verbalization of feelings encouraged;understanding of situation facilitated;relaxation techniques promoted;reassurance provided;problem solving facilitated;personal strengths integrated -- Safety Interventions Isolation Precautions -- standard precautions maintained Infection Prevention rest/sleep promoted;promote handwashing;nutrition promoted;hydration promoted;environmental surveillance;bronchial hygiene promoted -- Problem: Seizure Disorder/Epilepsy (Adult, Obstetrics) Goal: Signs and symptoms of listed potential problems will be absent or manageable (reference (Seizure Disorder/Epilepsy (Adult, Obstetrics)) CPG) Outcome: Ongoing (Interventions Implemented as Appropriate) 11/24/15 0240 Seizure Disorder/Epilepsy Problems Assessed (Seizure Disorder/Epilepsy) all Problems Present (Seizure Disorder/Epilepsy) situational response VEEG monitoring continued. EEG leads intact. Fall and Sz precautions maintained. Four side rails raised and padded as per VEEG monitoring protocol. Bed locked and in low position. Call gray within reach at all times. Pt able to ring appropriately. Suction and NRB set up in room. No overt Sz activity observed. AED uptration in progress. Patient had slight headache, no nausea. Patient did not want any medication for headache. Patient slept comfortably most of this shift. Patient was able to tolerate [place] with no nausea. * Plan of Care - Birgit Martel RN - 11/23/2015 5:42 PM EST Problem: General Plan of Care Goal: Plan of Care Review Outcome: Ongoing (Interventions Implemented as Appropriate) 11/21/15 0432 11/23/15 1000 Plan of Care Review Plan of Care Outcome Status ongoing (interventions implemented as appropriate) -- Progress no change -- Coping/Psychosocial Response Interventions Plan of Care Reviewed with -- patient;significant other OUTCOME EVALUATION NOTE: OUTCOME SUMMARY: Patient oriented x4 though lethargic and very groggy throughout shift. Patient started back seizuremedications though not able to take them this AM. Vomited 350 cc with morning meds. Patient nauseous and not able to eat anything all day. Per MD, patient supposed to take try and re-take seizure medications when able. Around 1500 patient woke up and was able to successfully take meds. AVSS throughout day. Patient slept on/off for most of the day. Patient woke up with mild h/a, 02/07, treated withtylenol successfully. Will continue to monitor. PLAN MOVING FORWARD: Start back on AED meds, continue to monitor INDIVIDUALIZED FALL PREVENTION: Assistance: Stand by assist Supervision: MICHELA/RN Surveillance: [place], purposeful hourly rounding, call gray within reach, VEEG monitoring CPG OUTCOME EVALUATION: Goal: Individualization and Mutuality Outcome: Ongoing (Interventions Implemented as Appropriate) 11/20/15 1700 Mutuality/Individual Preferences What anxieties, fears or concerns do you have about your health or care? none What questions do you have about your health or care? none What information would help us give you more personalized care? none Goal: Fall Prevention-Safe Patient Handling Outcome: Ongoing (Interventions Implemented as Appropriate) 11/23/15 1000 11/23/15 1200 Safety Interventions Safety Precautions/Fall Reduction -- chair alarm Musculoskeletal Interventions Activity/Level of Assistance with stand by assist -- Positioning -- independent Muscle Strengthening personal routines for BADL/IADL promoted -- Self-Care Promotion independence encouraged while providing assistance -- Gordon Fall Risk History of Falling 0 -- Secondary Diagnosis 15 -- Ambulatory Aids 0 -- Intravenous Therapy/Heparin/Saline Lock 20 -- Gait/Transferring 0 -- Mental Status 0 -- Score 35 -- OTHER Gordon Fall Risk Med -- Goal: Infection Control Outcome: Ongoing (Interventions Implemented as Appropriate) 11/23/15 1000 Coping/Psychosocial Response Interventions Counseling emotional support provided;calming techniques promoted;problem solving facilitated Safety Interventions Isolation Precautions standard precautions maintained Infection Prevention bronchial hygiene promoted;environmental surveillance;hydration promoted;nutrition promoted;promote handwashing;rest/sleep promoted Goal: Discharge Needs Assessment Outcome: Ongoing (Interventions Implemented as Appropriate) 11/21/15431 Discharge Needs Assessment Concerns to be Addressed no discharge needs identified Readmission Within the Last 30 Days no previous admission in last 30 days Equipment Needed After Discharge none Current Health Anticipated Changes Related to Illness none Self-Care Equipment Currently Used at Home none Living Environment Transportation Available car;family or friend will provide Problem: Seizure Disorder/Epilepsy (Adult, Obstetrics) Goal: Signs and symptoms of listed potential problems will be absent or manageable (reference (Seizure Disorder/Epilepsy (Adult, Obstetrics)) CPG) Outcome: Ongoing (Interventions Implemented as Appropriate) 11/23/15 0328 Seizure Disorder/Epilepsy Problems Assessed (Seizure Disorder/Epilepsy) all Problems Present (Seizure Disorder/Epilepsy) preictal, ictal, postictal events;situational response Problem: Fall/Trauma/Injury Risk (Adult, Obstetrics) Goal: Identify Signs and Symptoms and Related Risk Factors Signs and symptoms and related risk factors are identified upon initiation of Human Response Clinical Practice Guideline (CPG) Outcome: Ongoing (Interventions Implemented as Appropriate) 11/21/15431 Fall/Trauma/Injury Risk Environmental Related Risk Factors (Fall/Trauma/Injury Risk) environment unfamiliar Treatment Related Related Risk Factors (Fall/Trauma/Injury Risk) invasive/noninvasive equipment Signs and Symptoms (Fall/Trauma/Injury Risk) presence of risk factors Goal: Absence of Trauma/Injury/Falls Patient will demonstrate the desired outcomes. Outcome: Ongoing (Interventions Implemented as Appropriate) 11/23/15 1723 Fall/Trauma/Injury Risk (Adult, Obstetrics) Absence of Trauma/Injury/Falls making progress toward outcome * Plan of Care - Brittaney White RN - 11/23/2015 3:51 AM EST Problem: General Plan of Care Goal: Plan of Care Review Outcome: Ongoing (Interventions Implemented as Appropriate) 11/21/1543111/22/151999 Plan of Care Review Plan of Care Outcome Status ongoing (interventions implemented as appropriate) -- Progress no change -- Coping/Psychosocial Response Interventions Plan of Care Reviewed with -- patient;spouse OUTCOME SUMMARY: VSS, Patient not on tele. PERRL, A&Ox4, Speech is clear, logical, Lungs clear. Patient is on RA, 5/5 strengths all extremities. No numbness or tingling Patient takes pills whole IV site Left forearm Gauge: 22 Date inserted:11/20 drsg C/D/I Patient reports had persistent headache pain Treated with PRN acetaminophen PO and PRN toradol I. Patient had N/V post ictal. Treated with PRN zofran IV Patient diet: regular Bowel sounds active in all quadrants To urinate patient ambulates to bathroom, LBM: 11/22 WT: 83.7 kg on 11/22 Standard precautions maintained. Patient able to turn self, visitors/callers: stayed in room PLAN MOVING FORWARD: Plans for D/C to home when medically able Promote patient OOB to chair Continue to monitor Pain management Maintain patient safety AM Labs. Patient will continue to undergo VEEG monitoring upTitrate AED's Sleep deprivation this shift POC and Goals of Care: 1. Maintain hemodynamic stability = freq VS assessment/monitoring; patient head to toe assessment 2. Maintain airway, assess WOB, and monitor SPO2 3. Monitor for changes in neuro status/stability = Q4hr Neuro assessments per protocol 4. Assess all lab values with a focus on abnormalities which will negatively impact patient homeostasis 5. Monitor I/O and report significant variation from norm 6. Maintain patient safety and safe environment of care 7. Prevent injury from falls, IV infiltrates, aspiration, skin breakdown, RIZWANA, or patient confusion(see related actions & documentation in eDH) 8. Articulate pt status clearly & concisely to interdisciplinary care team in all communications, at all times 9. Communicate effectively and compassionately to patient and patient's family 10. Make effective use of all resources to ensure optimal patient care, safety, and patient/family experience 11. Standard precautions per policy INDIVIDUALIZED FALL PREVENTION: fall risk precautions maintained.Patient is cooperative. Patient able to reliably summon for assistance Bed in low position. Bed alarms with 4 side rails raised at all times patient is in bed as per VEEGprotocol. Tabs/chair alarms on at all times when patient is out of bed. Staff inside of bathroom with patient at all times. Tolieting offered. Bathing/hygeine/dressing assistance provided while encouraging independence. Environment clear of obstacles/tripping hazard. Lighting provided/adjusted. Patient instructed in use of call gray. call gray within reach at all times. Patient will remain free from falls this shift. ASSISTANCE: To ambulate patient is SBA, 1 gage (post ictal) SUPERVISION: patient is within reach assist with all ADL's, when patient is out of bed, and while patient is in bathroom SURVEILLANCE: Purposeful hourly rounding done, masimo, room near nurses station, telemetry, family at bedside, call gray within reach. 30 minute safety checks GOAL OUTCOME EVALUATION: Goal: Individualization and Mutuality Outcome: Ongoing (Interventions Implemented as Appropriate) 11/20/15 1700 Mutuality/Individual Preferences What anxieties, fears or concerns do you have about your health or care? none What questions do you have about your health or care? none What information would help us give you more personalized care? none Goal: Fall Prevention-Safe Patient Handling Outcome: Ongoing (Interventions Implemented as Appropriate) 11/22/15 0836 11/22/15199911/23/15 0000 Safety Interventions Safety Precautions/Fall Reduction -- -- bed alarm;environmental modification;fall reduction programmaintained;family at bedside;lighting adjusted for task/safety;nonskid shoes/slippers when out of bed;room near unit station;seizure precautions Musculoskeletal Interventions Activity/Level of Assistance -- -- bed rest Positioning -- -- independent Muscle Strengthening mobility in bed promoted -- -- Self-Care Promotion personal routines for BADL/IADL promoted -- -- Gordon Fall Risk History of Falling -- 0 -- Secondary Diagnosis -- 15 -- Ambulatory Aids -- 0 -- Intravenous Therapy/Heparin/Saline Lock -- 20 -- Gait/Transferring -- 0 -- Mental Status -- 0 -- Score -- 35 -- OTHER Gordon Fall Risk -- Med -- Goal: Infection Control Outcome: Ongoing (Interventions Implemented as Appropriate) 11/22/151999 Coping/Psychosocial Response Interventions Counseling calming techniques promoted;emotional support provided;goal setting facilitated;relaxation techniques promoted;reassurance provided;problem solving facilitated;personal strengths integrated;understanding of situation facilitated;verbalization of feelings encouraged Safety Interventions Isolation Precautions standard precautions maintained Infection Prevention environmental surveillance;bronchial hygiene promoted;hydration promoted;nutrition promoted;promote handwashing;rest/sleep promoted Problem: Seizure Disorder/Epilepsy (Adult, Obstetrics) Goal: Signs and symptoms of listed potential problems will be absent or manageable (reference (Seizure Disorder/Epilepsy (Adult, Obstetrics)) CPG) Outcome: Ongoing (Interventions Implemented as Appropriate) 11/23/15 0328 Seizure Disorder/Epilepsy Problems Assessed (Seizure Disorder/Epilepsy) all Problems Present (Seizure Disorder/Epilepsy) preictal, ictal, postictal events;situational response VEEG monitoring continued. EEG leads intact. Fall and Sz precautions maintained. Four side rails raised and padded as per VEEG monitoring protocol. Bed locked and in low position. Call gray within reach at all times. Pt able to ring appropriately. Suction and NRB set up in room. Off AED's 2203: See progress note for details of seizure, Ativan given.2219 Long post ictal phase (lasting greater than 40 minutes) where patient was not able to respond to questions, restless, rolling side toside, swinging legs and arms over railing. became nauseous and vomited, was incontinent of urine. Patient had headache, one time dose of IV Toradol given. Robyn Kaye MD aware. 0000: patient woke up, needed to urinate. [place]ner dizzy upon sitting, was able to go into the bathroomwith one assist after a few minutes. Upon returning to bed patient had headache, ice pack given, PRN acetaminophen PO 650mg given, patient felt nauseous, one time dose of IV zofran given. Robyn Kaye MD aware. 0400: patient woke up with headache 05/10. patient got up to use the bathroom, became dizzy, nauseous, used bathroom, got back into bed became nauseous again, vomited 2-300cc liquid. Robyn Kaye MD aware, new orders for one time dose of IV zofran. * Plan of Care - Tamie Luz RN - 11/22/2015 1:38 PM EST Problem: General Plan of Care Goal: Plan of Care Review Outcome: Ongoing (Interventions Implemented as Appropriate) 11/21/15 0432 11/21/15 0935 Plan of Care Review Plan of Care Outcome Status ongoing (interventions implemented as appropriate) -- Progress no change -- Coping/Psychosocial Response Interventions Plan of Care Reviewed with -- patient OUTCOME EVALUATION NOTE: OUTCOME SUMMARY: Pt has pb sz event @ 14:32. at bedside noticed pt's typical non- communicative/spacing out stare. Post icatl period lasted ~ 25 mins. See note from bedside RN in e-dh. Neurology service notified via radio page of this event. VEEG leads intact; continue monitoring; pt sleep deprived self last night. Sz precautions maintained Falls precautions maintained PLAN MOVING FORWARD: Hyperventilate this afternoon; photo stimulate this afternoon; sz precautions maintained; Falls precautions maintained; maintain EEG leads; monitor for sz activity INDIVIDUALIZED FALL PREVENTION: Assistance: OOB with 1 person arms' reach SBA Supervision: RNMICHELA SBA arms' reach to BR and chair or in room Surveillance: Hourly rounding; bedside report for pt safety CPG GOAL OUTCOME EVALUATION: Goal: Fall Prevention-Safe Patient Handling Outcome: Ongoing (Interventions Implemented as Appropriate) 11/20/15 1600 11/21/15 0935 11/21/15 1427 Safety Interventions Safety Precautions/Fall Reduction -- bed alarm -- Musculoskeletal Interventions Activity/Level of Assistance -- -- bed rest Positioning -- up in chair;independent -- Muscle Strengthening personal routines for BADL/IADL promoted -- -- Self-Care Promotion -- personal/BADL objects within reach -- Gordon Fall Risk History of Falling -- 0 -- Secondary Diagnosis -- 15 -- Ambulatory Aids -- 0 -- Intravenous Therapy/Heparin/Saline Lock -- 20 -- Gait/Transferring -- 0 -- Mental Status -- 0 -- Score -- 35 -- OTHER Gordon Fall Risk -- Med -- Goal: Infection Control Outcome: Ongoing (Interventions Implemented as Appropriate) 11/21/15 0432 11/21/15 0935 Coping/Psychosocial Response Interventions Counseling emotional support provided -- Safety Interventions Isolation Precautions -- standard precautions maintained Infection Prevention -- environmental surveillance Goal: Discharge Needs Assessment Outcome: Ongoing (Interventions Implemented as Appropriate) 11/21/15 0432 Discharge Needs Assessment Concerns to be Addressed no discharge needs identified Readmission Within the Last 30 Days no previous admission in last 30 days Equipment Needed After Discharge none Current Health Anticipated Changes Related to Illness none Self-Care Equipment Currently Used at Home none Living Environment Transportation Available car;family or friend will provide Problem: Seizure Disorder/Epilepsy (Adult, Obstetrics) Goal: Signs and symptoms of listed potential problems will be absent or manageable (reference (Seizure Disorder/Epilepsy (Adult, Obstetrics)) CPG) Outcome: Ongoing (Interventions Implemented as Appropriate) 11/21/15 0432 Seizure Disorder/Epilepsy Problems Assessed (Seizure Disorder/Epilepsy) all Problems Present (Seizure Disorder/Epilepsy) none Problem: Fall/Trauma/Injury Risk (Adult, Obstetrics) Goal: Identify Signs and Symptoms and Related Risk Factors Signs and symptoms and related risk factors are identified upon initiation of Human Response Clinical Practice Guideline (CPG) Outcome: Ongoing (Interventions Implemented as Appropriate) 11/21/15 043 Fall/Trauma/Injury Risk Environmental Related Risk Factors (Fall/Trauma/Injury Risk) environment unfamiliar Treatment Related Related Risk Factors (Fall/Trauma/Injury Risk) invasive/noninvasive equipment Signs and Symptoms (Fall/Trauma/Injury Risk) presence of risk factors Goal: Absence of Trauma/Injury/Falls Patient will demonstrate the desired outcomes. Outcome: Ongoing (Interventions Implemented as Appropriate) 11/21/15431 Fall/Trauma/Injury Risk (Adult, Obstetrics) Absence of Trauma/Injury/Falls making progress toward outcome * Plan of Care - Chelsea Lobato RN - 11/22/2015 3:44 AM EST Problem: General Plan of Care Goal: Plan of Care Review Outcome: Ongoing (Interventions Implemented as Appropriate) 11/21/15 04311/21/15 2100 Plan of Care Review Plan of Care Outcome Status ongoing (interventions implemented as appropriate) -- Progress no change -- Coping/Psychosocial Response Interventions Plan of Care Reviewed with -- patient OUTCOME EVALUATION NOTE: OUTCOME SUMMARY: Pt is A & O x 4, cooperative with all care. Pain managed on current regimen, see MAR for details. PLAN MOVING FORWARD: Monitor for seizure activity INDIVIDUALIZED FALL PREVENTION: Assistance: SBA Supervision: RN or MICHELA Surveillance: VEEG surveillance, masimo, purposeful hourly rounding CPG GOAL OUTCOME EVALUATION: Goal: Fall Prevention-Safe Patient Handling Outcome: Ongoing (Interventions Implemented as Appropriate) 11/21/15 2100 Safety Interventions Safety Precautions/Fall Reduction bed alarm;environmental modification;fall reduction program maintained;lighting adjusted for task/safety;low bed;muscle strengthening facilitated;nonskid shoes/slippers when out of bed;seizure precautions Musculoskeletal Interventions Activity/Level of Assistance bedrest with bathroom privileges Positioning independent Muscle Strengthening mobility in bed promoted Self-Care Promotion personal routines for BADL/IADL promoted;personal/BADL objects within reach Gordon Fall Risk History of Falling 0 Secondary Diagnosis 15 Ambulatory Aids 0 Intravenous Therapy/Heparin/Saline Lock 20 Gait/Transferring 0 Mental Status 0 Score 35 OTHER Gordon Fall Risk Med Problem: Seizure Disorder/Epilepsy (Adult, Obstetrics) Goal: Signs and symptoms of listed potential problems will be absent or manageable (reference (Seizure Disorder/Epilepsy (Adult, Obstetrics)) CPG) Outcome: Ongoing (Interventions Implemented as Appropriate) 11/21/15431 Seizure Disorder/Epilepsy Problems Assessed (Seizure Disorder/Epilepsy) all Problems Present (Seizure Disorder/Epilepsy) none Problem: Fall/Trauma/Injury Risk (Adult, Obstetrics) Goal: Identify Signs and Symptoms and Related Risk Factors Signs and symptoms and related risk factors are identified upon initiation of Human Response Clinical Practice Guideline (CPG) Outcome: Ongoing (Interventions Implemented as Appropriate) 11/21/15431 Fall/Trauma/Injury Risk Environmental Related Risk Factors (Fall/Trauma/Injury Risk) environment unfamiliar Treatment Related Related Risk Factors (Fall/Trauma/Injury Risk) invasive/noninvasive equipment Signs and Symptoms (Fall/Trauma/Injury Risk) presence of risk factors * Plan of Care - Tamie Luz RN - 11/21/2015 3:40 PM EST Problem: General Plan of Care Goal: Plan of Care Review Outcome: Ongoing (Interventions Implemented as Appropriate) 11/21/1543111/21/15 0935 Plan of Care Review Plan of Care Outcome Status ongoing (interventions implemented as appropriate) -- Progress no change -- Coping/Psychosocial Response Interventions Plan of Care Reviewed with -- patient OUTCOME EVALUATION NOTE: OUTCOME SUMMARY: Pt had photostimulation and hyperventilation by EEEG tech; no sz provoked. Pt had sz event at 10:03: MDs informed. All AED meds withheld. No new orders. VEEG leads intact; continue monitoring Sz precautions maintained Falls precautions maintained PLAN MOVING FORWARD: As above; sz precautions maintained; Falls precautions maintained; maintain EEG leads; monitor for sz activity INDIVIDUALIZED FALL PREVENTION: Assistance: OOB with 1 person arms' reach SBA Supervision: RNMICHELA SBA arms' reach to BR and chair or in room Surveillance: Hourly rounding; bedside report for pt safety CPG GOAL OUTCOME EVALUATION: Goal: Fall Prevention-Safe Patient Handling Outcome: Ongoing (Interventions Implemented as Appropriate) 11/20/15 1600 11/21/15 0935 11/21/15 1427 Safety Interventions Safety Precautions/Fall Reduction -- bed alarm -- Musculoskeletal Interventions Activity/Level of Assistance -- -- bed rest Positioning -- up in chair;independent -- Muscle Strengthening personal routines for BADL/IADL promoted -- -- Self-Care Promotion -- personal/BADL objects within reach -- Gordon Fall Risk History of Falling -- 0 -- Secondary Diagnosis -- 15 -- Ambulatory Aids -- 0 -- Intravenous Therapy/Heparin/Saline Lock -- 20 -- Gait/Transferring -- 0 -- Mental Status -- 0 -- Score -- 35 -- OTHER Gordon Fall Risk -- Med -- Goal: Infection Control Outcome: Ongoing (Interventions Implemented as Appropriate) 11/21/15 0432 11/21/15 0935 Coping/Psychosocial Response Interventions Counseling emotional support provided -- Safety Interventions Isolation Precautions -- standard precautions maintained Infection Prevention -- environmental surveillance Goal: Discharge Needs Assessment Outcome: Ongoing (Interventions Implemented as Appropriate) 11/21/15 043 Discharge Needs Assessment Concerns to be Addressed no discharge needs identified Readmission Within the Last 30 Days no previous admission in last 30 days Equipment Needed After Discharge none Current Health Anticipated Changes Related to Illness none Self-Care Equipment Currently Used at Home none Living Environment Transportation Available car;family or friend will provide Problem: Seizure Disorder/Epilepsy (Adult, Obstetrics) Goal: Signs and symptoms of listed potential problems will be absent or manageable (reference (Seizure Disorder/Epilepsy (Adult, Obstetrics)) CPG) Outcome: Ongoing (Interventions Implemented as Appropriate) 11/21/15 043 Seizure Disorder/Epilepsy Problems Assessed (Seizure Disorder/Epilepsy) all Problems Present (Seizure Disorder/Epilepsy) none Problem: Fall/Trauma/Injury Risk (Adult, Obstetrics) Goal: Identify Signs and Symptoms and Related Risk Factors Signs and symptoms and related risk factors are identified upon initiation of Human Response Clinical Practice Guideline (CPG) Outcome: Ongoing (Interventions Implemented as Appropriate) 11/21/15431 Fall/Trauma/Injury Risk Environmental Related Risk Factors (Fall/Trauma/Injury Risk) environment unfamiliar Treatment Related Related Risk Factors (Fall/Trauma/Injury Risk) invasive/noninvasive equipment Signs and Symptoms (Fall/Trauma/Injury Risk) presence of risk factors Goal: Absence of Trauma/Injury/Falls Patient will demonstrate the desired outcomes. Outcome: Ongoing (Interventions Implemented as Appropriate) 11/21/15431 Fall/Trauma/Injury Risk (Adult, Obstetrics) Absence of Trauma/Injury/Falls making progress toward outcome * Plan of Care - Betty Pyaton RN - 11/21/2015 4:42 AM EST Problem: General Plan of Care Goal: Plan of Care Review Outcome: Ongoing (Interventions Implemented as Appropriate) 11/21/15431 Plan of Care Review Plan of Care Outcome Status ongoing (interventions implemented as appropriate) Progress no change Coping/Psychosocial Response Interventions Plan of Care Reviewed with patient Goal: Individualization and Mutuality Outcome: Ongoing (Interventions Implemented as Appropriate) 11/20/15 1700 Mutuality/Individual Preferences What anxieties, fears or concerns do you have about your health or care? none What questions do you have about your health or care? none What information would help us give you more personalized care? none Goal: Fall Prevention-Safe Patient Handling Outcome: Ongoing (Interventions Implemented as Appropriate) 11/20/15202911/21/15431 Safety Interventions Safety Precautions/Fall Reduction -- bed alarm;environmental modification;fall reduction program maintained;lighting adjusted for task/safety;nonskid shoes/slippers when out of bed;seizure precautions;supervised activity Musculoskeletal Interventions Activity/Level of Assistance -- up in room;with stand by assist Positioning -- independent Self-Care Promotion -- personal/BADL objects within reach Gordon Fall Risk History of Falling 0 -- Secondary Diagnosis 15 -- Ambulatory Aids 0 -- Intravenous Therapy/Heparin/Saline Lock 20 -- Gait/Transferring 0 -- Mental Status 0 -- Score 35 -- OTHER Gordon Fall Risk Med -- Goal: Infection Control Outcome: Ongoing (Interventions Implemented as Appropriate) 11/21/15431 Coping/Psychosocial Response Interventions Counseling emotional support provided Safety Interventions Isolation Precautions standard precautions maintained Infection Prevention environmental surveillance Goal: Discharge Needs Assessment Outcome: Ongoing (Interventions Implemented as Appropriate) 11/21/15431 Discharge Needs Assessment Concerns to be Addressed no discharge needs identified Readmission Within the Last 30 Days no previous admission in last 30 days Equipment Needed After Discharge none Current Health Anticipated Changes Related to Illness none Self-Care Equipment Currently Used at Home none Living Environment Transportation Available car;family or friend will provide Problem: Seizure Disorder/Epilepsy (Adult, Obstetrics) Goal: Signs and symptoms of listed potential problems will be absent or manageable (reference (Seizure Disorder/Epilepsy (Adult, Obstetrics)) CPG) Outcome: Ongoing (Interventions Implemented as Appropriate) 11/21/15 0432 Seizure Disorder/Epilepsy Problems Assessed (Seizure Disorder/Epilepsy) all Problems Present (Seizure Disorder/Epilepsy) none Problem: Fall/Trauma/Injury Risk (Adult, Obstetrics) Goal: Identify Signs and Symptoms and Related Risk Factors Signs and symptoms and related risk factors are identified upon initiation of Human Response Clinical Practice Guideline (CPG) Outcome: Ongoing (Interventions Implemented as Appropriate) 11/21/15 0432 Fall/Trauma/Injury Risk Environmental Related Risk Factors (Fall/Trauma/Injury Risk) environment unfamiliar Treatment Related Related Risk Factors (Fall/Trauma/Injury Risk) invasive/noninvasive equipment Signs and Symptoms (Fall/Trauma/Injury Risk) presence of risk factors Goal: Absence of Trauma/Injury/Falls Patient will demonstrate the desired outcomes. Outcome: Ongoing (Interventions Implemented as Appropriate) 11/21/15 0432 Fall/Trauma/Injury Risk (Adult, Obstetrics) Absence of Trauma/Injury/Falls making progress toward outcome OUTCOME EVALUATION NOTE: OUTCOME SUMMARY: Pt here for VEEG monitoring to characterize seizure events. EEG leads intact. Photo consent and epilepsy overview form signed by pt and witnessed by nurse. Carbatrol and lamictal held this evening. Medicated with 650mg tylenol po at 0310 for c/o mild headache. No seizure activity noted this shift. PLAN MOVING FORWARD: Seizure precautions. Fall precautions. Bed alarm on. Call gray in reach. INDIVIDUALIZED FALL PREVENTION: Assistance: OOB with standby assist. Supervision: RN or MICHELA. Surveillance: Purposeful rounding. Parker. VEEG. CPG GOAL OUTCOME EVALUATION: * Plan of Care - Veronica Garnica - 11/20/2015 5:39 PM EST Problem: General Plan of Care Goal: Plan of Care Review Outcome: Ongoing (Interventions Implemented as Appropriate) 11/20/15 1600 Coping/Psychosocial Response Interventions Plan of Care Reviewed with patient OUTCOME EVALUATION NOTE: OUTCOME SUMMARY: Pt to floor at 1430; see progress note. VEEG initiated. A/Ox4. Compliant with expectations and verbalizes understanding of teaching. Good appetite and voiding well; no complaints. PLAN MOVING FORWARD: Hold anti-epileptic medications this evening per MD. INDIVIDUALIZED FALL PREVENTION: Assistance: turns self Supervision: RN and MICHELA Surveillance: Danilo, call gray within reach, frequent rounding, room near unit station CPG GOAL OUTCOME EVALUATION: Safety maintained Goal: Individualization and Mutuality Outcome: Ongoing (Interventions Implemented as Appropriate) 11/20/15 1700 Mutuality/Individual Preferences What anxieties, fears or concerns do you have about your health or care? none What questions do you have about your health or care? none What information would help us give you more personalized care? none Goal: Fall Prevention-Safe Patient Handling Outcome: Ongoing (Interventions Implemented as Appropriate) 11/20/15 1600 11/20/15 1700 Gordon Fall Risk History of Falling -- 0 Secondary Diagnosis -- 15 Ambulatory Aids -- 0 Intravenous Therapy/Heparin/Saline Lock -- 20 Gait/Transferring -- 0 Mental Status -- 0 Score -- 35 OTHER Gordon Fall Risk -- Med Safety Interventions Safety Precautions/Fall Reduction bed alarm;nonskid shoes/slippers when out of bed;room near unit station;fall reduction program maintained -- Musculoskeletal Interventions Positioning HOB up 30-45 degrees -- Muscle Strengthening personal routines for BADL/IADL promoted -- Self-Care Promotion personal routines for BADL/IADL promoted;assistance provided to decrease frustration -- Goal: Infection Control Outcome: Ongoing (Interventions Implemented as Appropriate) 11/20/15 1600 Safety Interventions Infection Prevention environmental surveillance;bronchial hygiene promoted;hydration promoted;nutrition promoted;promote handwashing;rest/sleep promoted Goal: Discharge Needs Assessment Outcome: Ongoing (Interventions Implemented as Appropriate) 11/20/15 1700 Living Environment Transportation Available family or friend will provide Problem: Seizure Disorder/Epilepsy (Adult, Obstetrics) Goal: Signs and symptoms of listed potential problems will be absent or manageable (reference (Seizure Disorder/Epilepsy (Adult, Obstetrics)) CPG) Outcome: Ongoing (Interventions Implemented as Appropriate) Problem: Fall/Trauma/Injury Risk (Adult, Obstetrics) Goal: Identify Signs and Symptoms and Related Risk Factors Signs and symptoms and related risk factors are identified upon initiation of Human Response Clinical Practice Guideline (CPG) Outcome: Ongoing (Interventions Implemented as Appropriate) Goal: Absence of Trauma/Injury/Falls Patient will demonstrate the desired outcomes. Outcome: Ongoing (Interventions Implemented as Appropriate) documented in this encounter Plan of Treatment Upcoming Encounters Date Type Department Care Team (Late st Contact Info) Description 08/25/2024 9:00 AM EDT Office Visit Hematology/Oncology at [address] [phone] Pia Cooper MD [facility] [place] [address] Shayla Vuong APRN [facility] [place] [address] 08/25/2024 9:30 AM EDT Scheduled View Only Hematology/Oncology at [address] [phone] Ekta Womack RN 08/25/2024 9:30 AM EDT Infusion Hematology Oncology at [address] [phone] Scheduled Orders Name Type Priority Associated Diagnoses Order Schedule EEG video monitoring Neurology Routine Unti l Discontinued until discontinued starting 11/20/2015 EEG recording with Photic Stimulation, Hyperventilation daily Neurology Routine One Time for 1 Occurrences starting 11/20/2015 until 11/20/2015 documented as of this encounter Procedures Procedure Name Priority Date/Time Associated Diagnosis Comments EKG 12-LEAD Routine 11/20/2015 3:39 PM EST Seizures LAMOTRIGINE LVL Routine 11/20/2015 3:34 PM EST HEMOGRAM Routine 11/20/2015 3:34 PM EST DIFFERENTIAL, AUTOMATED Routine 11/20/2015 3:34 PM EST CREATININE Routine 11/20/2015 3:34 PM EST CBC (WITH DIFF) Routine 11/20/2015 3:34 PM EST BUN Routine 11/20/2015 3:34 PM EST CARBAMAZEPINE LEVEL, TOTAL Routine 11/20/2015 3:34 PM EST HEPATIC FUNCTION PANEL Routine 5 3:34 PM EST ELECTROLYTES PANEL Routine 11/20/2015 3: 34 PM EST documented in this encounter Results * EKG 12 Lead (11/20/2015 3:39 PM EST) Ventricular rate 84 BPM MUSE SYSTEM Atrial Rate 84 BPM MUSE SYSTEM P-R Interval 150 ms MUSE SYSTEM QRS Duration 84 ms MUSE SYSTEM Q-T Interval 372 ms MUSE SYSTEM QTC Calculated (Bezet) 439 ms MUSE SYSTEM Calculated P [place] 49 degrees MUSE SYSTEM Calculated R [place] 26 degrees MUSE SYSTEM Calculated T [place] 47 degrees MUSE SYSTEM INTERPRETATION Normal sinus rhythm Normal ECG No previous ECGs available Confirmed by Brayan SALAS Chapo ([id number]) on 11/20/2015 4:50:25 PM MUSE SYSTEM 11/20/2015 3:39 PM EST 11/20/2015 4:50 PM EST Guilherme Reynolds MD ECG ORDERABLES MUSE SYSTEM * Differential, Automated (11/20/2015 3:34 PM EST) Neutrophil % 62.9 % CERNER MILLENNIUM Neutrophil Absolute 2.61 1.50 - 6.30 x10(3)/mcL CERNER MILLENNIUM Lymph % 27.2 % CERNER MILLENNIUM Lymphocytes Abs 1.1 1.0 - 3.6 x10(3)/mcL CERNER MILLENNIUM Monocyte % 5.8 % CERNER MILLENNIUM Monocyte Abs 0.2 0.2 - 1.0 x10(3)/mcL CERNER MILLENNIUM Eos % 3.4 % CERNER MILLENNIUM Eosinophils Abs 0.1 0.0 - 0.5 x10(3)/mcL CERNER MILLENNIUM Basophil % 0.5 % CERNER MILLENNIUM Baso Absolute 0.0 0.0 - 0.2 x10(3)/mcL CERNER MILLENNIUM Immature Gran % 0.20 % CERN ER MILLENNIUM Comment: Immature granulocytes(IG's)percentage and absolute count will include metamyelocytes, myelocytes, and promyelocytes. Blood smears from CBCs yielding IG's will be scanned manually for concordance. If this scan disagrees with the automated IG or if promyelocytes are noted, a manual differential will be performed. Immature Gran Absolute 0.01 0.00 - 0.05 x10(3)/mcL CERNER MILLENNIUM Blood specimen (specimen) 11/20/2015 3:34 PM EST 11/20/2015 3:49 PM EST Narrative Resulting Agency Comment Spec In Lab Guilherme Reynolds MD HEMATOLOGY ORDERABLE S CERNER MILLENNIUM * Hemogram (11/20/2015 3:34 PM EST) White Blood Cell 4.2 4.0 - 10.0 x10(3)/mcL CERNER MILLENNIUM Red Blood Cell 4.68 4.63 - 6.08 x10(6)/mcL CERNER MILLENNIUM Hemoglobin 14.1 13.7 - 17.5 gm/dL CERNER MILLENNIUM Hematocrit 40.9 40.0 - 51.0 % CERNER MILLENNIUM Mean Cell Volume 87.4 79.0 - 92.0 fL CERNER MILLENNIUM Mean Cell Hemoglobin 30.1 25.6 - 32.2 pg CERNER MILLENNIUM Mean Cell Hemoglobin Concentration 34.5 32.0 - 36.5 gm/dL CERNER MILLENNIUM Platelet 214 145 - 370 x10(3)/mcL CERNER MILLENNIUM RDW Standard Deviation 42.0 35.0 - 46.0 fL CERNER MILLENNIUM RDW coefficient of variation 13.2 10.9 - 14.4 % CERNER MILLENNIUM Mean Platelet Volume 9.8 9.0 - 12.0 fL CERNER MILLENNIUM Blood specimen (specimen) 11/20/2015 3:34 PM EST 11/20/2015 3:49 PM EST Narrative Resulting Agency Comment Spec In Lab Guilherme Reynolds MD HEMATOLOGY ORDERABLE S Performing Organization Address [facility]/ZIP Co de Phone Number CEREMILY MONTANOENNIUM * Lamotrigine Lvl (11/20/2015 3:34 PM EST) Lamotrigine Lvl (MARCH) 4.0 2.5 - 15.0 mcg/mL CERNER MILLENNIUM Comment: Test Performed by: [facility] [place] [address] [employer] Salesperson: Tamie Brown, Ph.D. Blood specimen (specimen) 11/20/2015 3:34 PM EST 11/20/2015 5:19 PM EST Narrative Resulting Agency Comment Spec In Lab Guilherme Reynolds MD LAB SEND OUT ORDERAB LES Performing Organization Address [facility] Co de Phone Number CEREMILY MONTANOENNIUM * (ABNORMAL) Carbamazepine level, total (11/20/2015 3:34 PM EST) Carbamazepine 7.6(L) 8.0 - 12.0 mg/L CERNER MILLENNIUM Comment: Therapeutic range: ??8-12 mg/L Toxic: ??> 12 mg/L Blood specimen (specimen) 11/20/2015 3:34 PM EST 11/20/2015 3:49 PM EST Narrative Resulting Agency Comment Spec In Lab Guilherme Reynolds MD CHEMISTRY ORDERABLES Performing Organization Address [facility] Co de Phone Number CERNER CHARMAINEENNIUM * Hepatic Function Panel (11/20/2015 3:34 PM EST) Protein, Total 7.1 6.1 - 8.0 gm/dL CERNER MILLENNIUM Albumin 4.3 3.2 - 5.2 gm/dL CERNER MILLENNIUM Aspartate Aminotransferase 13 0 - 39 unit/L CERNER MILLENNIUM Alanine Aminotransferase 16 0 - 55 unit/L CERNER MILLENNIUM Alkaline Phosphatase 66 40 - 120 unit/L CERNER MILLENNIUM Bilirubin, Total 0.2 0.2 - 1.3 mg/dL CERNER MILLENNIUM Bilirubin, Direct 0.1 0.0 - 0.3 mg/dL CERNER MILLENNIUM Blood specimen (specimen) 11/20/2015 3:34 PM EST 11/20/2015 3:49 PM EST Narrative Resulting Agency Comment Spec In Lab Guilherme Reynolds MD CHEMISTRY ORDERABLES Performing Organization Address [facility] Co de Phone Number EVERTON MONTANOENNIUM * Creatinine (11/20/2015 3:34 PM EST) Creatinine 1.03 0.80 - 1.50 mg/dL CERNER MILLENNIUM Comment: Please note that the pediatric reference intervals supplied above were not validated at [facility]. Results from pediatric patients should be interpreted in conjunction to the patient's age, height and muscle mass. Est Glomerular Filtration Rate >60 >=60 CERNER MILLENNIUM Comment: This estimated GFR (eGFR) value was calculated using the MDRD equation which has been validated on patients between the ages of 18 and 70. The MDRD should not be used to assess kidney function in patients < 18 years of age or in patients with extremes of body mass, or in patients with acute kidney failure. This value should be multiplied by 1.2 for patients. For further information please copy and paste the following links into your internet browser. [email or web address] [email or web address] Blood specimen (specimen) 11/20/2015 3:34 PM EST 11/20/2015 3:49 PM EST Narrative Resulting Agency Comment Spec In Lab Guilherme Reynolds MD CHEMISTRY ORDERABLES Performing Organization Address City/[facility]/ZIP Co de Phone Number EVERTON GRESHAMIUM * BUN (11/20/2015 3:34 PM EST) Blood Urea Nitrogen 13 10 - 20 mg/dL CERNER MILLENNIUM Blood specimen (specimen) 11/20/2015 3:34 PM EST 11/20/2015 3:49 PM EST Narrative Resulting Agency Comment Spec In Lab Guilherme Reynolds MD CHEMISTRY ORDERABLES Performing Organization Address [facility] Co de Phone Number EVRETON SANTOS * Electrolytes panel (11/20/2015 3:34 PM EST) Sodium 143 135 - 145 mmol/L CERNER MILLENNIUM Potassium 3.7 3.5 - 5.0 mmol/L CERNER MILLENNIUM Comment: Please note: ??Patients with WBC >100,000 may have falsely elevated Potassium levels. ??For accurate Potassium quantification in these patients send serum separator tube (gold top) for subsequent determinations. ??Contact the Clinical Chemistry Laboratory if there are any questions. Chloride 104 98 - 107 mmol/L CERNER MILLENNIUM Carbon Dioxide 28 22 - 31 mmol/L CERNER MILLENNIUM Anion Gap 11 5 - 15 mmol/L CERNER MILLENNIUM Blood specimen (specimen) 11/20/2015 3:34 PM EST 11/20/2015 3:49 PM EST Narrative Resulting Agency Comment Spec In Lab Guilherme Reynolds MD CHEMISTRY ORDERABLES Performing Organization Address [facility] Co de Phone Number EVERTON SANTOS documented in this encounter Visit Diagnoses Diagnosis Seizures Other convulsions Seizure Other convulsions documented in this encounter Admitting Diagnoses Diagnosis Seizure Other convulsions documented in this encounter Administered Medications Inactive Administered Medications - up to 3 most recent administrations Medication Order MAR Action Action Date Dose Rate Site acetaminophen (TYLENOL) tablet 650 mg 650 mg, Oral, EVERY 4 HOURS PRN, Starting on Fri11/20/15 at 1503, Until Fri11/24/15 at 1237, Pain, Maximum dose of acetaminophen is 4000 mg from all sources in 24 hours., Routine Given 11/23/2015 6:05 PM EST 650 mg Given 11/23/2015 2:11 AM EST 650 mg Given 11/22/2015 7:45 PM EST 650 mg carBAMazepine (CARBATROL) CR capsule 400 mg 400 mg, Oral, DAILY WITH BREAKFAST, First dose on Christina 11/23/15 at 1100, Until Discontinued, DO NOT CRUSH OR OPEN, Routine Given 11/24/2015 8:05 AM EST 400 mg Given 11/23/2015 3:36 PM EST 400 mg Given 11/23/2015 10:16 AM EST 400 mg carBAMazepine (CARBATROL) CR capsule 600 mg 600 mg, Oral, NIGHTLY, First dose on Fri11/23/15 at 2100, Until Discontinued, DO NOT CRUSH OR OPEN, Routine Given 11/23/2015 8:16 PM EST 600 mg ketorolac (TORADOL) injection 15 mg 15 mg, Intravenous, ONCE, 1 dose, On Fri11/22/15 at 2100, Routine Given 11/22/2015 11:00 PM EST 15 mg lamoTRIgine (LaMICtal) tablet 200 mg 200 mg, Oral, 2 TIMES DAILY, First dose on Fri11/23/15 at 1100, Until Discontinued, Routine Given 11/24/2015 8:05 AM EST 200 mg Given 11/23/2015 8:19 PM EST 200 mg Given 11/23/2015 3:35 PM EST 200 mg LORazepam (ATIVAN) 2 mg/mL injection 1 dose, Starting on Fri11/23/15 at 0623, Until Fri11/23/15 at 0629, BRITTANEY WHITE: cabinet override LORazepam (ATIVAN) injection 2 mg 2 mg, Intravenous, ONCE, 1 dose, On Fri11/22/15 at 2245, STAT Given 11/22/2015 10:27 PM EST 2 mg LORazepam (ATIVAN) injection 2 mg 2 mg, Intravenous, ONCE, 1 dose, On Fri11/23/15 at 0645, STAT Given 11/23/2015 6:29 AM EST 2 mg ondansetron (ZOFRAN) injection 4 mg 4 mg, Intravenous, EVERY 8 HOURS PRN, Starting on Fri11/23/15 at 0212, Until Fri11/23/15 at 1147, Nausea Given 11/23/2015 10:24 AM EST 4 mg Given 11/23/2015 2:27 AM EST 4 mg ondansetron (ZOFRAN) injection 4 mg 4 mg, Intravenous, ONCE, 1 dose, On Fri11/23/15 at 0500 Given 11/23/2015 4:52 AM EST 4 mg ondansetron (ZOFRAN) injection 4 mg 4 mg, Intravenous, ONCE, 1 dose, On Fri11/23/15 at 1215 Given 11/23/2015 12:27 PM EST 4 mg prochlorperazine (COMPAZINE) injection 10 mg 10 mg, Intravenous, EVERY 6 HOURS PRN, Starting on Fri11/23/15 at 1400, Until Fri11/24/15 at 1237, Nausea, Nausea/Vomiting, Routine Given 11/23/2015 3:04 PM EST 10 mg sertraline (ZOLOFT) tablet 50 mg 50 mg, Oral, DAILY, First dose (after last modification) on Fri11/21/15 at 0900, Until Discontinued, Routine Given 11/24/2015 8:05 AM EST 50 mg Given 11/23/2015 10:16 AM EST 50 mg Given 11/22/2015 8:29 AM EST 50 mg sodium chloride 0.9 % flush 5 mL 5 mL, Intravenous, 2 TIMES DAILY, First dose on Fri11/20/15 at 2100, Until Discontinued, Routine Given 11/24/2015 8:10 AM EST 5 mLs Given 11/23/2015 8:19 PM EST 5 mLs Given 11/23/2015 10:18 AM EST 5 mLs documented in this encounter Active and Recently Administered Medications Times are shown in EST. Scheduled Medication Order 11/22/2015 11/23/2015 11/24/2015 carBAMazepine (CARBATROL) CR capsule 400 mg (CANCELED)(Linked Group 1) 400 mg, Oral, DAILY WITH BREAKFAST, First dose on Fri11/23/15 at 1100, Until Discontinued, DO NOT CRUSH OR OPEN, Routine 1016 (Given - Provider: Birgit Martel RN - Comment: patient vomitted 1 minute after administration, will discuss with care team)1536 (Given - Provider: Birgit Martel RN) 0805 (Given - Provider: Birgit Martel RN) carBAMazepine (CARBATROL) CR capsule 600 mg (CANCELED)(Linked Group 1) 600 mg, Oral, NIGHTLY, First dose on Fri11/23/15 at 2100, Until Discontinued, DO NOT CRUSH OR OPEN, Routine 2015 (Given - Provider: Brittaney White RN) ketorolac (TORADOL) injection 15 mg (COMPLETED) 15 mg, Intravenous, ONCE, 1 dose, On Fri11/22/15 at 2100, Routine 2300 (Given - Provider: Brittaney White RN) lamoTRIgine (LaMICtal) tablet 200 mg (CANCELED) 200 mg, Oral, 2 TIMES DAILY, First dose on Fri11/23/15 at 1100, Until Discontinued, Routine 1015 (Given - Provider: Birgit Martel RN - Comment: patient vomitted 1 minute after administration, will discuss sinan care team)153 (Given - Provider: Birgit Martel RN)2019 (Given - Provider: Brittaney White RN) 0805 (Given - Provider: Birgit Martel RN) LORazepam (ATIVAN) injection 2 mg (COMPLETED) 2 mg, Intravenous, ONCE, 1 dose, On Fri11/22/15 at 2245, STAT 2227 (Given - Provider: Ailyn Saravia RN) LORazepam (ATIVAN) injection 2 mg (COMPLETED) 2 mg, Intravenous, ONCE, 1 dose, On Fri11/23/15 at 0645, STAT 0629 (Given - Provider: Brittaney White RN) ondansetron (ZOFRAN) injection 4 mg (COMPLETED) 4 mg, Intravenous, ONCE, 1 dose, On Fri11/23/15 at 0500 0452 (Given - Provider: Brittaney White RN) ondansetron (ZOFRAN) injection 4 mg (COMPLETED) 4 mg, Intravenous, ONCE, 1 dose, On Fri11/23/15 at 1215 1227 (Given - Provider: Birgit Martel RN) sertraline (ZOLOFT) tablet 50 mg (CANCELED) 50 mg, Oral, DAILY, First dose (after last modification) on Fri11/21/15 at 0900, Until Discontinued, Routine 0829 (Given - Provider: Lani Uribe RN) 1016 (Given - Provider: Birgit Martel RN - Comment: patient vomitted 1 min after administration, will discuss with care team) 0805 (Given - Provider: Birgit Martel RN) sodium chloride 0.9 % flush 5 mL (CANCELED) 5 mL, Intravenous, 2 TIMES DAILY, First dose on Fri11/20/15 at 2100, Until Discontinued, Routine 0829 (Given - Provider: Lani Uribe RN)202 (Given - Provider: Brittaney White RN) 1018 (Given - Provider: Birgit Martel RN)2019 (Given - Provider: Brittaney White RN) 0810 (Given - Provider: Birgit Martel, RN) PRN Medication Order 11/22/2015 11/23/2015 11/24/2015 acetaminophen (TYLENOL) tablet 650 mg (CANCELED) 650 mg, Oral, EVERY 4 HOURS PRN, Starting on 11/20/15 at 1503, Until 11/24/15 at 1237, Pain, Maximum dose of acetaminophen is 4000 mg from all sources in 24 hours., Routine 1540 (Given - Provider: Tamie Luz RN)1945 (Given - Provider: Brittaney White, HUONG) 0211 (Given - Provider: Brittaney White, HUONG)1805 (Given - Provider: Birgit Martel, RN) ondansetron (ZOFRAN) injection 4 mg (CANCELED) 4 mg, Intravenous, EVERY 8 HOURS PRN, Starting on Christina 11/23/15 at 0212, Until Christina 11/23/15 at 1147, Nausea 0227 (Given - Provider: Brittaney White RN)1024 (Given - Provider: Birgit Martel, RN) prochlorperazine (COMPAZINE) injection 10 mg (CANCELED)(Linked Group 2) 10 mg, Intravenous, EVERY 6 HOURS PRN, Starting on Christina 11/23/15 at 1400, Until Fri11/24/15 at 1237, Nausea, Nausea/Vomiting, Routine 1453 (Hold - Provider: Birgit Martel, HUONG - Reason: Patient/family refused - Comment: patient wants to wait)1504 (Given - Provider: Juany Dominguez RN) Linked Groups Order Group 1: carBAMazepine (CARBATROL) CR capsule 400 mg (CANCELED)Jump to med 400 mg, Oral, DAILY WITH BREAKFAST, First dose on Christina 11/23/15 at 1100, Until Discontinued, DO NOT CRUSH OR OPEN, Routine And carBAMazepine (CARBATROL) CR capsule 600 mg (CANCELED)Jump to med 600 mg, Oral, NIGHTLY, First dose on Christina 11/23/15 at 2100, Until Discontinued, DO NOT CRUSH OR OPEN, Routine Group 2: prochlorperazine (COMPAZINE) tablet 10 mg (CANCELED) 10 mg, Oral, EVERY 6 HOURS PRN, Starting on Christina 11/23/15 at 1400, Until Fri11/24/15 at 1237, Nausea, Nausea/Vomiting, If unable to take PO, may give IV, Routine Or prochlorperazine (COMPAZINE) injection 10 mg (CANCELED)Jump to med 10 mg, Intravenous, EVERY 6 HOURS PRN, Starting on Christina 11/23/15 at 1400, Until Fri11/24/15 at 1237, Nausea, Nausea/Vomiting, Routine documented in this encounter Care Teams Health Information Internship Relationship Specialty Start Date End Date Janee Salinas MD PCP - General Family Medicine 09/20/15 09/29/23 documented as of this encounter
--- OUTSIDE RECORDS SUMMARY | 2024-08-11 20:37 | XMS_ITS | Encounter Summary ---
[place] [address] Care Team Providers Care Legal Director Name Role Phone Jose Manuel Kimble MD Primary Care Provider [phone] Encounter Details Date Type Department Care Team (Late st Contact Info) Description 01/16/2016 [place] [phone] Kwabena Garcia MD [facility] [place] [address] Social History Tobacco Use Types Packs/Day Years [...] Telephone Encounter - Kwabena Garcia MD - 01/16/2016 11:08 AM EST Dizzy and not balanced. Vimpat 200 mg tab: 1.5 tabs in AM, 1.5 tabs in PM Patient overdosed. Vimpat changed to 1 tab twice daily, total dose of 400 per day. Start Carbatrol weaning today. * Telephone Encounter - Vasile Mcmullen RN - 01/16/2016 9:59 AM EST Jodie Ford called again this am. She said Brett had to miss work today d/t side effects of the Vimpat. Please advise. Vasile Fuller RN documented in this encounter Plan of Treatment Upcoming Encounters Date Type Department Care Team (Late st Contact Info) Description 08/25/2024 9:00 AM EDT Office Visit Hematology/Oncology at [address] [phone] Pia Cooper MD [facility] [address] [place] [address] Shayla Vuong APRN [facility] [place] [address] 08/25/2024 9:30 AM EDT Scheduled View Only Hematology/Oncology at [address] [phone] Ekta Womack RN 08/25/2024 9:30 AM EDT Infusion Hematology Oncology at [address] [phone] documented as of this encounter Visit Diagnoses Not on filedocumented in this encounter Care Teams Legal Director Relationship Specialty Start Date End Date Jose Manuel Kimble MD PCP - General Family Medicine 09/20/15 09/29/23 documented as of this encounter
--- OUTSIDE RECORDS SUMMARY | 2024-08-11 20:37 | XMS_ITS | Encounter Summary ---
Author Organization [facility] [place] [address] Care Team Providers Care Pocketed Spring Machine Operator Name Role Phone Jose Manuel Kimble MD Primary Care Provider [phone] Encounter Details Date Type Department Care Team (Late st Contact Info) Description 03/26/2016 [place] [phone] Ivory Allison LPN Social History Tobacco Use Types Packs/Day Years [...] 9:00 AM EDT Office Visit Hematology/Oncology at [address] [phone] Pia Cooper MD [facility] [place] [address] Shayla Vuong APRN [facility] [place] [address] 08/25/2024 9:30 AM EDT Scheduled View Only Hematology/Oncology at [address] [phone] Ekta Womack, RN 08/25/2024 9:30 AM EDT Infusion Hematology Oncology at [address] [phone] documented as of this encounter Visit Diagnoses Not on filedocumented in this encounter Care Teams Pocketed Spring Machine Operator Relationship Specialty Start Date End Date Jose Manuel Kimble MD PCP - General Family Medicine 09/20/15 09/29/23 documented as of this encounter
[2024-08-11 21:13] LABS: Lactate 1.4 mmol/L (0.6-1.4)
[2024-08-11 21:15] LABS: HCT 34.7 % (40.0-50.0); HGB 11.7 g/dL (13.5-17.5); MCH 30.2 pg (27.0-33.0); MCHC 33.7 % (32.0-36.0); MCV 90 fL (80-95); MPV 9.3 fL (8.0-11.0); Platelet Count 148 10^3/uL (130-400); RBC 3.87 10^6/uL (4.36-5.78); RDW 12.3 % (11.8-14.1); RDW-SD 40.8 fL
[2024-08-11 21:31] LABS: Bilirubin Negative (Negative); Blood Negative (Negative); Clarity Sl Cloudy (Clear); Glucose 100 mg/dL (Negative); Ketones Negative (Negative); Leukocyte Esterase Negative (Negative); Nitrite Negative (Negative); Urobilinogen >=8.0 mg/dL (Up to 0.2); pH 8.5 (5-8)
[2024-08-11 21:32] LABS: ALT 22 U/L (16-63); AST 12 U/L (15-37); Albumin 3.4 g/dL (3.4-5.0); Alkaline Phosphatase 76 U/L (46-116); Anion Gap 4.4 mmol/L (3-11); BUN 13 mg/dL (7-18); Bilirubin, Total 1.08 mg/dL (0.2-1.0); C-Reactive Protein 2.81 mg/dL (<or=0.5); CO2 31.6 mmol/L (21.0-32.0); CREATININE 0.9 mg/dL (0.70-1.30); Calcium 8.9 mg/dL (8.5-10.1); Chloride 102 mmol/L (98-107); Estimated GFR 104.05 (mL/min/1.73m2); Glucose 110 mg/dL (74-106); Potassium 3.5 mmol/L (3.5-5.1); Sodium 138 mmol/L (136-145); Total Protein 6.4 g/dL (6.4-8.2)
--- NOTE | 2024-08-11 21:45 | DI.CT_ITS ---
Exam(s) CT ABDOMEN PELVIS W EXAM: CT ABDOMEN PELVIS W CLINICAL HISTORY: Mid epigastric pain, fever. TECHNIQUE: Imaging Protocol: Axial computed tomography images with coronal and sagittal reformatted images were created and reviewed CONTRAST MATERIAL: Intravenous: Omnipaque 350 Contrast volume:100 ml Oral: no COMPARISON: No exams were available for comparison FINDINGS: ABDOMEN and PELVIS: Lung Bases: No acute findings. Liver: Normal density. No suspicious mass. Gallbladder and biliary tract: No radiodense calculus. No biliary dilation. Pancreas: Normal density. No abnormal calcifications or inflammatory process. No evidence of mass. Spleen: Borderline enlargement at 13 cm. Kidneys: Normal size, contour and axis. No radiodense stones. No obstructive uropathy. No suspicious masses seen. Adrenal glands: No masses seen. Vasculature: Abdominal aorta non-dilated. Soft tissues: Small fatty containing inguinal hernias. Bladder: Mild diffuse wall thickening. No calculi.No focal mass. Bowel: No obstruction. No bowel wall thickening. Appendix normal. Peritoneal cavity: No ascites. No focal collection. No mesenteric inflammatory response. Bones: Degenerative disc changes at L5-S1. Reproductive organs: Unremarkable. Lymph nodes: No pathologically enlarged lymph nodes. IMPRESSION:: Mild bladder wall thickening with secondary to under distention versus cystitis. Clini renetta correlation recommended. Borderline splenic enlargement. RADIATION DOSE DELIVERED: 433.34mGy.cm Total DLP DATA REPOSITORY: All CT scans at this facility are submitted to the National Radiology Data Registry (NRDR) Dose Index Registry (DIR) with the [employer] (ACR). RADIATION OPTIMIZATION: All CT scans at this facility use at least one of these dose optimization te chniques: automated exposure control; mA and/or kV adjustment per patient size (includes targeted exa ms where dose is matched to clinical indication); or iterative reconstruction.
[2024-08-11 21:47] LABS: Absolute Eosinophil Count 0.08 10^3/uL (0.0-0.7); Absolute Lymphocyte Count 0.33 10^3/uL (1.2-3.4); Absolute Monocyte Count 0.03 10^3/uL (0.1-0.8); Atypical Lymphocytes % 4 %; Diff Comment Manual Differential; RBC Morphology Normal
[2024-08-11 21:50] LABS: WBC 0.43 10^3/uL (4.4-10.8)
[2024-08-11 21:52] LABS: Procalcitonin 0.1 ng/mL
[2024-08-11 22:01] LABS: COVID-19 PCR Negative (Negative); Influenza A PCR Negative (Negative); Influenza B PCR Negative (Negative); RSV PCR Negative (Negative); Source Nasopharynx
[2024-08-11 22:03] LABS: Lipase 18 U/L (16-77)
--- NOTE | 2024-08-11 22:06 | NUR.NOTE ---
Nursing Note: this RN read documentation [place] [facility] [place] that PT does have power port that was placed 07/27/24
[2024-08-11] MEDS: Normal Saline - Diluent 50 ML VIAL IJ (22:23)
[2024-08-11] MEDS: Omnipaque 350 MG/ML 100 ML BTL IJ (22:24)
--- NOTE | 2024-08-11 22:31 | DI.VRAD_ITS ---
PROCEDURE INFORMATION: Exam: XR Chest Exam date and time: 08/11/2024 9:25 PM Age: 48 years old Clinical indication: Fever; Prior surgery; Surgery date: 1-6 months; Surgery type: Port TECHNIQUE: Imaging protocol: Radiologic exam of the chest. Views: 1 view. COMPARISON: No relevant prior studies available. FINDINGS: Tubes, catheters and devices: Left IJ infusion port in good position with the tip in the superior vena cava. Lungs: Unremarkable. No consolidation. Pleural spaces: Unremarkable. No pleural effusion. No pneumothorax. Heart/Mediastinum: Unremarkable. No cardiomegaly. Bones/joints: Unremarkable. IMPRESSION: No acute disease Dictated and Authenticated by: Dante Mills MD. Ordering:PRADIP Mayberry MD
[2024-08-11] MEDS: CEFEPIME 1 GM in Normal Saline 50 ML IVPB (22:49)
[2024-08-11] MEDS: Loratidine 10 MG TAB PO (22:50)
--- NOTE | 2024-08-11 22:59 | DI.VRAD_ITS ---
PROCEDURE INFORMATION: Exam: CT Abdomen And Pelvis With Contrast Exam date and time: 08/11/2024 10:33 PM Age: 48 years old Clinical indication: Other: Mid epigastric pain, fever; Patient HX: Lymphoma CA TECHNIQUE: Imaging protocol: Computed tomography of the abdomen and pelvis with contrast. COMPARISON: CR XR PORTABLE CHEST AP 08/11/2024 9:25 PM FINDINGS: Liver: Normal. No mass. Gallbladder and biliary ducts: Normal. No calcified stones. No ductal dilation. Pancreas: Normal. No ductal dilation. Spleen: Spleen is mildly enlarged, measuring 15.5 cm in greatest diameter. No focal splenic abnormality. Adrenal glands: Normal. No mass. Kidneys and ureters: Normal. No hydronephrosis. Stomach and bowel: Unremarkable. No obstruction. No mucosal thickening. Appendix: No evidence of appendicitis. Intraperitoneal space: Unremarkable. No free air. No significant fluid collection. Vasculature: Unremarkable. No abdominal aortic aneurysm. Lymph nodes: Unremarkable. No enlarged lymph nodes. Urinary bladder: Unremarkable as visualized. Reproductive: Unremarkable as visualized. Bones/joints: Severe degenerative disc changes of the lumbosacral junction producing moderate spinal stenosis. No vertebral body compression or fracture. Soft tissues: Unremarkable. IMPRESSION: No acute abnormality evident. Incidentally noted mild splenomegaly as well as significant degenerative changes of the lumbosacral junction of the spine Dictated and Authenticated by: Dante Mills MD. Ordering:PRADIP Mayberry MD
--- NOTE | 2024-08-11 23:42 | HPE_ITS ---
Date of service: 08/11/24 Time of Service: 23:43 Assessment and Plan Assessment and plan (1) Fever and neutropenia: Status: Acute Assessment and plan: Neutropenic fever, source not apparent. Will continue Cefepime and Filgrastim, await blood cultures. Usual meds as is otherwise. 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 Here in ER w/u of note for white count 0.4, with ANC 0; negative CXR and U/A, and CT abdomen negative as well save for mild splenomegaly. Strep screen and COVID negative. case reviewed with Oncology, advised Cefepime and Filgrastim. I was asked to evaluate for admission. Patient reports mild generalized malaise, slight sore throat, and heartburn after eating. Review of Systems Narrative: per HPI PFSH All Active Problems Fever and neutropenia (Acute) Lymphoma (Acute) Depressive disorder (Chronic) Hand paresthesia (Acute) Wax in ear (Acute) Fatigue (Acute) Memory loss (Acute) Partial epilepsy (Acute) New onset headache (Acute) Medical History Seizure, temporal lobe Lazy eye Surgical History History of cranial surgery L temporal lobectomy for seizures H/O vasectomy History of back surgery x3 at [facility]; last in 2003? Family History Father Diabetes Mother Alzheimer disease Sister Diabetes Social History Smoking/Tobacco Use Status: Never Smoking risk assessment performed?: Yes Alcohol Intake: never Details: OCCASTIONAL Substance use type: marijuana Details: CBD pen Household members: significant other Housing: house Number of Children: 3 current occupation: [employer] in [employer] What is your relationship status?: Panel score (0-1 are the most socially isolated patients): 0 What type of physical activity do you participate in: walking Seatbelt use: always Do you feel safe at home: Yes Do you feel safe in your relationship?: Yes Meds Allergies and Home Medications Allergies Allergy/AdvReac Type Severity Reaction Status Date / Time No Known Allergies Allergy Verified 08/11/24 19:43 Home Medications ?Medication ?Instructions ?Recorded ?Confirmed ?Type lamotrigine 200 mg tablet 200 mg PO BID #180 tabs 08/19/23 08/11/24 Rx Vimpat 200 mg tablet (lacosamide) 100 mg (1/2 x 200 mg) PO BID #90 03/02/24 08/11/24 Rx tabs acyclovir 400 mg tablet 400 mg PO BID 08/11/24 08/11/24 History allopurinol 300 mg tablet 300 mg PO DAILY 08/11/24 08/11/24 History ibuprofen 200 mg capsule 400 mg PO TID-QID PRN 08/11/24 08/11/24 History loratadine 10 mg tablet (Claritin) 10 mg PO DAILY 08/11/24 08/11/24 History omeprazole 20 mg capsule,delayed 20 mg PO DAILY 08/11/24 08/11/24 History release ondansetron 8 mg disintegrating 8 mg PO BID 08/11/24 08/11/24 History tablet prednisone 50 mg tablet 100 mg PO DAILY 08/11/24 08/11/24 History prochlorperazine maleate 10 mg 10 mg PO TID 08/11/24 08/11/24 History tablet (Compazine) sennosides 8.6 mg tablet (senna) 8.6 mg PO QD-BID PRN 08/11/24 08/11/24 History sulfamethoxazole 800 1 tab PO DAILY 08/11/24 08/11/24 History mg-trimethoprim 160 mg tablet Exam Narrative Exam Narrative: 136/67, 96, Tmax 37.6, 18, 96% RA. HEENT atraumatic, no dental lesions except missing left upper front tooth, no pharyngeal erythema or exudate; left esotropia and anisocoria; neck supple; lungs clear; heart RRR w/o MRG; abdomen soft and NT w/o HSM; extremities w/o edema; neuro Ox3, lucid, moves all 4s; skin no rashes, port site in left upper chest w/o erytherma, tenderness or swelling Results Labs 08/11/24 21:03 08/11/24 21:03 Labs: Laboratory Results - last 24 hr 08/11/24 08/11/24 08/11/24 21:03 21:10 21:20 WBC 0.43 L* RBC 3.87 L Hgb 11.7 L Hct 34.7 L MCV 90 MCH 30.2 MCHC 33.7 RDW 12.3 Plt Count 148 MPV 9.3 Immature Gran % 0.0 Neutrophils % 0.0 Lymphocytes % 72.0 Atypical Lymphs % 4 Monocytes % 6.0 Eosinophils % 18.0 Basophils % 0.0 Nucleated RBC % 0.0 Absolute Neutrophils 0.00 L* Absolute Lymphocytes 0.33 L Absolute Monocytes 0.03 L Absolute Eosinophils 0.08 Absolute Basophils 0.00 RBC Morphology Normal VBG Lactate 1.4 Sodium 138 Potassium 3.5 Chloride 102 Carbon Dioxide 31.6 Anion Gap 4.4 BUN 13 Creatinine 0.9 Est GFR (CKD-EPI 2020) 104.05 Glucose 110 H Calcium 8.9 Total Bilirubin 1.08 H AST 12 L ALT 22 Alkaline Phosphatase 76 C-Reactive Protein 2.81 H Total Protein 6.4 Albumin 3.4 Lipase 18 Procalcitonin 0.1 Urine Color Yellow Urine Clarity Sl Cloudy Urine pH 8.5 H Ur Specific [place] 1.020 Urine Protein Negative Urine Ketones Negative Urine Blood Negative Urine Nitrite Negative Urine Bilirubin Negative Urine Urobilinogen >=8.0 H Ur Leukocyte Esterase Negative Urine Glucose 100 H COVID-19 Source Nasopharynx SARS-CoV-2 (PCR) Negative Influenza Type A (PCR) Negative Influenza Type B (PCR) Negative RSV (PCR) Negative Last Vital Signs Temp 36.9 C 08/11/24 22:55 Pulse 96 H 08/11/24 22:55 Resp 18 08/11/24 22:55 BP 136/67 08/11/24 22:55 Pulse Ox 96 08/11/24 22:55 Time Spent Time spent with Patient: 40-54 minutes Time was spent: preparing to see the patient(eg.review tests), obtaining and/or reviewing separately otained hiistory, ordering medications,tests, procedures, referring, communicating with other health health care assistant and indepentently interpreting results
--- NOTE | 2024-08-12 | DI.CT_ITS ---
Exam(s) CT HEAD W EXAM: CT HEAD W CLINICAL HISTORY: headaches, neutropenia, lymphoma. TECHNIQUE: Imaging Protocol: Axial computed tomography images with coronal and sagittal reformatted images were created and reviewed. CONTRAST MATERIAL: Intravenous: Omnipaque 350 contrast volume:100 mL COMPARISON: No exams were available for comparison FINDINGS: A noncontrast examination was not performed. Ventricles and Extra axial spaces: Normal in size and morphology for the patient's age. Hemorrhage: None. Cerebral parenchyma: Encephalomalacia is seen involving the left temporal lobe. There is a normal gr ay-white matter differentiation. There is a 3-4 mm linear area of hyperdensity in the high posterior left parietal lobe. This may represent a parenchymal calcification or possible vascular malformatio n. Hemorrhage cannot be entirely excluded. Enhancement: No suspicious enhancement. [place]: Unremarkable. Midline shift: None. Brainstem/Cerebellum: There is a left temporal bone craniotomy. Calvarium: Normal. Visualized Paranasal sinuses/Mastoids: Clear. IMPRESSION: 1. Findings of a prior left temporal craniotomy and encephalomalacia involving the left temporal lobe . 2. No findings to suggest an acute infarct or mass effect. 3. 3-4 mm linear area of hyperdensity in the high posterior left parietal lobe. This may represent a parenchymal calcification or possible vascular malformation. Hemorrhage cannot be entirely excluded . A follow-up non-contrast CT examination is recommended to document stability. RADIATION DOSE DELIVERED: Total DLP Total DLP DATA REPOSITORY: All CT scans at this facility are submitted to the National Radiology Data Registry (NRDR) Dose Index Registry (DIR) with the [employer] (ACR). RADIATION OPTIMIZATION: All CT scans at this facility use at least one of these dose optimization te chniques: automated exposure control; mA and/or kV adjustment per patient size (includes targeted exa ms where dose is matched to clinical indication); or iterative reconstruction.
--- NOTE | 2024-08-12 00:36 | W.PC.ACHO ---
Registration Status: Primary Language: Preferred Language: ED Information & Data Chief Complaint Fever 08/11/24 20:06 Triage Note fever advil at 1845. fever 08/11/24 19:38 since 1800 shaking stomach ache. lymphomia first chemo . pt has a port. Medical / Surgical History (Last Reviewed 08/11/24 @ 23:49 by Shadi Jimenez MD) Seizure, temporal lobe Lazy eye (Last Reviewed 08/11/24 @ 23:49 by Shadi Jimenez MD) History of cranial surgery H/O vasectomy History of back surgery Most Recent Vital Signs Temperature 36.9 C 08/11/24 22:55 Temperature Source Temporal Artery Scan 08/11/24 22:55 Pulse 96 H 08/11/24 22:55 Pulse Rhythm Regular 08/11/24 22:55 Pulse Strength Normal 08/11/24 22:55 Respiratory Rate 18 08/11/24 22:55 Respiratory Effort Normal, Non-Labored 08/11/24 22:55 Respiratory Depth Normal 08/11/24 22:55 Respiratory Pattern Normal 08/11/24 22:55 Blood Pressure 136/67 08/11/24 22:55 Blood Pressure Mean 90 08/11/24 22:55 Blood Pressure Position Sitting 08/11/24 22:55 Pulse Oximetry 96 08/11/24 22:55 Oxygen Delivery Method Room Air 08/11/24 22:55 Oxygen Flow Rate 0 08/11/24 22:55 Pain Level 4 08/11/24 19:38 Allergies No Known Allergies Allergy (Verified 08/11/24 19:43) Active Medications Generic Name Dose Route Start Last Admin Trade Name Trey PRN Reason Stop Dose Admin Iohexol 100 ml 08/11/24 22:30 08/11/24 22:24 Omnipaque 350 Mg/Ml 100 Ml Btl IJ 09/10/24 23:59 100 ml DIRECTED RADHA Administration Sodium Chloride 50 ml 08/11/24 22:30 08/11/24 22:23 Normal Saline - Diluent 50 Ml Vial IJ 50 ml .FOR DI USE RADHA Administration Tbo-Filgrastim 300 mcg 08/11/24 23:00 08/11/24 22:58 Filgrastim-Sndz 300 Mcg/0.5 Ml Syr SC 300 mcg NOW RADHA Administration IV IV Catheter Type [Right Distal Saline Lock Port] Diet Orders Category Date Time Status Regular/Normal [DIET] Nutrition 08/12/24 Breakfast Active Diagnostics 08/12/24 08/11/24 08/11/24 Range/Units 05:35 21:20 21:10 WBC Pending (4.4-10.8) 10^3/uL RBC Pending (4.36-5.78) 10^6/uL Hgb Pending (13.5-17.5) g/dL Hct Pending (40.0-50.0) % MCV Pending (80-95) fL MCH Pending (27.0-33.0) pg MCHC Pending (32.0-36.0) % RDW Pending (11.8-14.1) % Plt Count Pending (130-400) 10^3/uL MPV Pending (8.0-11.0) fL Immature Gran % Pending % Neutrophils % Pending % Lymphocytes % Pending % Atypical Lymphs % % Monocytes % Pending % Eosinophils % Pending % Basophils % Pending % Nucleated RBC % (0.0-0.3) % Absolute Neutrophils Pending (1.2-6.7) 10^3/uL Absolute Lymphocytes Pending (1.2-3.4) 10^3/uL Absolute Monocytes Pending (0.1-0.8) 10^3/uL Absolute Eosinophils Pending (0.0-0.7) 10^3/uL Absolute Basophils Pending (0.0-0.2) 10^3/uL RBC Morphology VBG Lactate (0.6-1.4) mmol/L Sodium (136-145) mmol/L Potassium (3.5-5.1) mmol/L Chloride (98-107) mmol/L Carbon Dioxide (21.0-32.0) mmol/L Anion Gap (3-11) mmol/L BUN (7-18) mg/dL Creatinine (0.70-1.30) mg/dL Est GFR (CKD-EPI 2020) (mL/min/1.73m2) Glucose (74-106) mg/dL Calcium (8.5-10.1) mg/dL Total Bilirubin (0.2-1.0) mg/dL AST (15-37) U/L ALT (16-63) U/L Alkaline Phosphatase (46-116) U/L C-Reactive Protein (<or=0.5) mg/dL Total Protein (6.4-8.2) g/dL Albumin (3.4-5.0) g/dL Lipase (16-77) U/L Procalcitonin ng/mL Urine Color Yellow (Yellow) Urine Clarity Sl Cloudy (Clear) Urine pH 8.5 H (5-8) Ur Specific [place] 1.020 (1.005-1.025) Urine Protein Negative (Neg-Trace) mg/dL Urine Ketones Negative (Negative) mg/dL Urine Blood Negative (Negative) Urine Nitrite Negative (Negative) Urine Bilirubin Negative (Negative) Urine Urobilinogen >=8.0 H (Up to 0.2) mg/dL Ur Leukocyte Esterase Negative (Negative) Urine Glucose 100 H (Negative) mg/dL COVID-19 Source Nasopharynx SARS-CoV-2 (PCR) Negative (Negative) Influenza Type A (PCR) Negative (Negative) Influenza Type B (PCR) Negative (Negative) RSV (PCR) Negative (Negative) Path Cons Comment 08/11/24 Range/Units 21:03 WBC 0.43 L* (4.4-10.8) 10^3/uL RBC 3.87 L (4.36-5.78) 10^6/uL Hgb 11.7 L (13.5-17.5) g/dL Hct 34.7 L (40.0-50.0) % MCV 90 (80-95) fL MCH 30.2 (27.0-33.0) pg MCHC 33.7 (32.0-36.0) % RDW 12.3 (11.8-14.1) % Plt Count 148 (130-400) 10^3/uL MPV 9.3 (8.0-11.0) fL Immature Gran % 0.0 % Neutrophils % 0.0 % Lymphocytes % 72.0 % Atypical Lymphs % 4 % Monocytes % 6.0 % Eosinophils % 18.0 % Basophils % 0.0 % Nucleated RBC % 0.0 (0.0-0.3) % Absolute Neutrophils 0.00 L* (1.2-6.7) 10^3/uL Absolute Lymphocytes 0.33 L (1.2-3.4) 10^3/uL Absolute Monocytes 0.03 L (0.1-0.8) 10^3/uL Absolute Eosinophils 0.08 (0.0-0.7) 10^3/uL Absolute Basophils 0.00 (0.0-0.2) 10^3/uL RBC Morphology Normal VBG Lactate 1.4 (0.6-1.4) mmol/L Sodium 138 (136-145) mmol/L Potassium 3.5 (3.5-5.1) mmol/L Chloride 102 (98-107) mmol/L Carbon Dioxide 31.6 (21.0-32.0) mmol/L Anion Gap 4.4 (3-11) mmol/L BUN 13 (7-18) mg/dL Creatinine 0.9 (0.70-1.30) mg/dL Est GFR (CKD-EPI 2020) 104.05 (mL/min/1.73m2) Glucose 110 H (74-106) mg/dL Calcium 8.9 (8.5-10.1) mg/dL Total Bilirubin 1.08 H (0.2-1.0) mg/dL AST 12 L (15-37) U/L ALT 22 (16-63) U/L Alkaline Phosphatase 76 (46-116) U/L C-Reactive Protein 2.81 H (<or=0.5) mg/dL Total Protein 6.4 (6.4-8.2) g/dL Albumin 3.4 (3.4-5.0) g/dL Lipase 18 (16-77) U/L Procalcitonin 0.1 ng/mL Urine Color (Yellow) Urine Clarity (Clear) Urine pH (5-8) Ur Specific [place] (1.005-1.025) Urine Protein (Neg-Trace) mg/dL Urine Ketones (Negative) mg/dL Urine Blood (Negative) Urine Nitrite (Negative) Urine Bilirubin (Negative) Urine Urobilinogen (Up to 0.2) mg/dL Ur Leukocyte Esterase (Negative) Urine Glucose (Negative) mg/dL COVID-19 Source SARS-CoV-2 (PCR) (Negative) Influenza Type A (PCR) (Negative) Influenza Type B (PCR) (Negative) RSV (PCR) (Negative) Path Cons Comment Pending 08/11/24 22:47 Group A Streptococcus Culture - Pending Tonsil - Not Specified 08/11/24 21:20 Blood Culture - Pending Blood 08/11/24 21:03 Blood Culture - Pending Blood Vilhs-ol-Nemw Documentation POC Strep Test-CYDNEY(Rapid) Start: 08/11/24 22:22 Freq: .Rapid Strep Test Status: Active Protocol: Activity Type Activity Date Activity User E-sign Co-sign Detail Recorded Client Recorded Date Recorded By Document 08/11/24 22:56 N.AINP [id number] 08/11/24 22:57 N.AINP Intake and Output - 24 Hour Total 08/11/24 19:37 thru 08/11/24 23:20 Intake Total 70 Balance 70 Weight 89.131 kg Intake: IV 70 Falls Risk Assessment History of Falls No History 08/11/24 20:10 Contributing Factors No Factors 08/11/24 20:10 Ambulatory Aids Independent 08/11/24 20:10 Tubes/Lines None 08/11/24 20:10 Gait Evaluation No gait disturbance 08/11/24 20:10 Cognition No cognitive impairment 08/11/24 20:10 Fall Total Score 0 08/11/24 20:10 Level of Risk Standard/Low Risk 08/11/24 20:10 Problems (Last Reviewed 08/11/24 @ 23:49 by Shadi Jimenez MD) Fever and neutropenia (Acute) Notes 08/11/24 22:06 Nursing Notes by Cheryl Pierre Nursing Note: this RN read documentation on PT's [facility] my chart that PT does have power port that was placed 07/27/24 Initialized on 08/11/24 22:06 - END OF NOTE v v v v v v v v v Sending and/or Receiving Nurses: Please use comment section below to note any information pertinent to the patient hand-off not included above. Information / Comments: Report received from: Alex RN: [id number] 08/12/24. Lymphoma 1st round chemo x1 weeks ago. fever, shaking, epigastric pain. Infection of unknown origin. CT Negative Covid Negative Fever Broke. Port is accessed. Port was accessed tonight. Cefepime, Zarexio. Immune boosting. Claratin. per his oncologist.
[2024-08-12 00:57] VITALS: BP 117/78; PULSE 89; RESP 16; TEMP 37.2; O2SAT 95
[2024-08-12] MEDS: Acetaminophen 325 MG TAB 650 MG PO ×3 (02:02→21:08)
[2024-08-12] MEDS: Zolpidem 5 MG TAB PO ×2 (02:02→21:08)
[2024-08-12] MEDS: CEFEPIME 2 GM in Normal Saline 100 ML IVPB ×3 (07:32→23:57)
[2024-08-12 08:30] VITALS: BP 120/78; PULSE 92; RESP 18; TEMP 37.2; O2SAT 96
[2024-08-12] MEDS: Omeprazole 20 MG CAPCR PO (08:30)
[2024-08-12] MEDS: Prochlorperazine 10 MG TAB PO ×3 (08:30→20:12)
[2024-08-12] MEDS: lamoTRIgine 100 MG TAB 200 MG PO ×2 (08:30→20:14)
[2024-08-12] MEDS: Lacosamide 100 MG TAB PO ×2 (08:30→20:13)
[2024-08-12] MEDS: Loratidine 10 MG TAB PO (08:30)
[2024-08-12] MEDS: Allopurinol 300 MG TAB PO (08:30)
[2024-08-12] MEDS: predniSONE 20 MG TAB 100 MG PO (08:30)
[2024-08-12] MEDS: Acyclovir 400 MG TAB PO ×2 (08:30→20:13)
[2024-08-12] MEDS: Ondansetron O.D.T. 4 MG TABEF 8 MG PO ×2 (10:06→20:13)
[2024-08-12] MEDS: Sulfameth/Trimeth DS TAB 1 TAB PO (10:31)
[2024-08-12 13:29] LABS: Abs Immature Grans 0.01 10^3/uL (0.0-0.06); Absolute Basophil Count 0.01 10^3/uL (0.0-0.2); HGB 12.2 g/dL (13.5-17.5); MCH 30.5 pg (27.0-33.0); MCHC 34.9 % (32.0-36.0); MCV 88 fL (80-95); MPV 8.8 fL (8.0-11.0); Platelet Count 164 10^3/uL (130-400); RDW 12.4 % (11.8-14.1); RDW-SD 39.8 fL
[2024-08-12 13:30] LABS: WBC 0.63 10^3/uL (4.4-10.8)
[2024-08-12 13:31] LABS: Absolute Lymphocyte Count 0.33 10^3/uL (1.2-3.4); Absolute Monocyte Count 0.13 10^3/uL (0.1-0.8); Absolute Neutrophil Count 0.07 10^3/uL (1.2-6.7); Bands % 1 %
[2024-08-12 13:32] LABS: Diff Comment Manual Differential; RBC Morphology Normal
[2024-08-12 14:56] VITALS: TEMP 36.3
--- NOTE | 2024-08-12 16:48 | INITIAL_ITS ---
Date of service: 08/12/24 Time of Service: 16:48 Care Management Initial Assmt Initial Assessment Reason for Hospitalization: neutropenic fever Functional Status/Living Situation Patient Presentation: Brett was lying in bed when CM met with him; his mother and sister were in the room visiting. He stated that he feels better today, and describes how he is independent at baseline. 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 He stated that he had pain in his back and legs after treatment, which was hard for him; this was his first treatment, and they are scheduled for every three weeks. His sister asked if there was anything they can do to make him more successful at home post treatment; CM recommended that he speak with his oncology team and the social and human services assistant at the cancer center for guidance. Brett stated that his better half is working, but will be visiting later today. CM will continue to follow. Town of Residence: [place] Resides with: Spouse (s/o, Jill) Significant Other/Family: Local Natural Supports: Mother and sister (Ana Grissom) live near him. Employment Status: Employed (works at a [employer]) Instrumental Activities of Daily Living (ADLs): Independent Medications Medication Management: No Issues/Barriers identified Advance Directives Advance Directives: Do you have an Advance Directive: N 08/11/24 19:44 AD On File at [facility]: N 08/03/24 11:57 Date Asked 08/11/24 08/11/24 11:08 AD Date Reviewed COLST On File at [facility] No 08/11/24 19:44 COLST Date Scanned Code Status Resuscitation Status Full Code Insurance Coverage/Financial Issues Insurance: / Care Team Visit Care Team Role Provider Type Cholo Whitfield Primary Care Provider NON-[facility] STAFF PH YSICIAN Shawanda Christensen NP Emergency Provider NURSE PRACTITIONER Shadi Jimenez MD Admit Provider [facility] STAFF PHYSICIAN Attending Provider Discharge Potential Discharge Needs: PCP F/U Appt and Other (Oncology F/U) Anticipated Barriers to Discharge: None Identified Patient/Family Education Needs: Review discharge instructions, discuss Ask Me Three Transportation: Private vehicle Plan: Anticipate Brett will return home once medically cleared. He will transport home via private vehicle by family. He will follow up with his PCP and discharge plan of care. CM will continue to follow. PFSH All Active Problems Fever and neutropenia (Acute) Lymphoma (Acute) Depressive disorder (Chronic) Hand paresthesia (Acute) Wax in ear (Acute) Fatigue (Acute) Memory loss (Acute) Partial epilepsy (Acute) New onset headache (Acute) Medical History Seizure, temporal lobe Lazy eye Surgical History History of cranial surgery L temporal lobectomy for seizures H/O vasectomy History of back surgery x3 at [facility]; last in 2003? Family History Father Diabetes Mother Alzheimer disease Sister Diabetes Social History Smoking/Tobacco Use Status: Never Smoking risk assessment performed?: Yes Alcohol Intake: never Details: OCCASTIONAL Substance use type: marijuana Details: CBD pen Household members: significant other Housing: house Number of Children: 3 current occupation: [employer] What is your relationship status?: Panel score (0-1 are the most socially isolated patients): 0 What type of physical activity do you participate in: walking Seatbelt use: always Do you feel safe at home: Yes Do you feel safe in your relationship?: Yes SDOH(Care Management) Screening Will the Patient Participate in the Screening?: Yes Do you worry about having a steady place to live?: no Problems where you live: no known problems In the past 12 months, have you had to go without electric, gas, oil or water in your home?: no Have you or anyone in your house had to go without enough food to eat?: no Has lack of transportation kept you from medical appointments or from doing things needed for daily living?: no Has anyone in your support network made you feel unsafe for any reason?: no
--- NOTE | 2024-08-12 17:22 | PGE_ITS ---
Date of Service Date of service: 08/12/24 Time of Service: 17:22 Assessment and Plan Assessment and plan (1) Fever and neutropenia: Status: Acute Assessment and plan: continue cefepime while awaiting blood cultures, monitor daily ANC; consider further imaging of spine if he remains febrile and no source is found. will CT his head d/t his headaches. Subjective Subjective Interval history since last seen: Brett presented w/ fever of 102 at home along w/ chills. He denies any sinus pain/pressure or cough and no dysuria. He has had some headaches. No ill contacts. He was admitted for treatment of neutropenic fevers. he is undergoing chemotherapy for B cell lymphoma. He also notes low back pains but also has DJD and prior LS surgery. No radiculopathy sx. Exam Narrative Exam Narrative: Middle age white male who has lazy left eye, he reports that he has had this for years. He also reports prior brain surgery for seizures. HEENT: no exudate and no sinus pain/pressure Lungs: clear heart: RRR, no murmur or rub Abdomen: soft, nontender Extremties: no rash or open sores. Objective Last Vital Signs Temp 36.3 C L 08/12/24 14:56 Pulse 92 H 08/12/24 08:30 Resp 18 08/12/24 08:30 BP 120/78 08/12/24 08:30 Pulse Ox 96 08/12/24 08:30 Laboratory Results - last 24 hr 08/11/24 08/11/24 08/11/24 21:03 21:10 21:20 WBC 0.43 L* RBC 3.87 L Hgb 11.7 L Hct 34.7 L MCV 90 MCH 30.2 MCHC 33.7 RDW 12.3 Plt Count 148 MPV 9.3 Immature Gran % 0.0 Neutrophils % 0.0 Band Neutrophils % Lymphocytes % 72.0 Atypical Lymphs % 4 Monocytes % 6.0 Eosinophils % 18.0 Basophils % 0.0 Nucleated RBC % 0.0 Absolute Neutrophils 0.00 L* Absolute Lymphocytes 0.33 L Absolute Monocytes 0.03 L Absolute Eosinophils 0.08 Absolute Basophils 0.00 RBC Morphology Normal VBG Lactate 1.4 Sodium 138 Potassium 3.5 Chloride 102 Carbon Dioxide 31.6 Anion Gap 4.4 BUN 13 Creatinine 0.9 Est GFR (CKD-EPI 2020) 104.05 Glucose 110 H Calcium 8.9 Total Bilirubin 1.08 H AST 12 L ALT 22 Alkaline Phosphatase 76 C-Reactive Protein 2.81 H Total Protein 6.4 Albumin 3.4 Lipase 18 Procalcitonin 0.1 Urine Color Yellow Urine Clarity Sl Cloudy Urine pH 8.5 H Ur Specific [place] 1.020 Urine Protein Negative Urine Ketones Negative Urine Blood Negative Urine Nitrite Negative Urine Bilirubin Negative Urine Urobilinogen >=8.0 H Ur Leukocyte Esterase Negative Urine Glucose 100 H COVID-19 Source Nasopharynx SARS-CoV-2 (PCR) Negative Influenza Type A (PCR) Negative Influenza Type B (PCR) Negative RSV (PCR) Negative 08/12/24 07:35 WBC 0.63 L* RBC 4.00 L Hgb 12.2 L Hct 35.0 L MCV 88 MCH 30.5 MCHC 34.9 RDW 12.4 Plt Count 164 MPV 8.8 Immature Gran % 0.0 Neutrophils % 10.0 Band Neutrophils % 1 Lymphocytes % 52.0 Atypical Lymphs % Monocytes % 20.0 Eosinophils % 16.0 Basophils % 1.0 Nucleated RBC % 0.0 Absolute Neutrophils 0.07 L* Absolute Lymphocytes 0.33 L Absolute Monocytes 0.13 Absolute Eosinophils 0.10 Absolute Basophils 0.01 RBC Morphology Normal VBG Lactate Sodium Potassium Chloride Carbon Dioxide Anion Gap BUN Creatinine Est GFR (CKD-EPI 2020) Glucose Calcium Total Bilirubin AST ALT Alkaline Phosphatase C-Reactive Protein Total Protein Albumin Lipase Procalcitonin Urine Color Urine Clarity Urine pH Ur Specific [place] Urine Protein Urine Ketones Urine Blood Urine Nitrite Urine Bilirubin Urine Urobilinogen Ur Leukocyte Esterase Urine Glucose COVID-19 Source SARS-CoV-2 (PCR) Influenza Type A (PCR) Influenza Type B (PCR) RSV (PCR) Time Spent with Patient Time Spent with Patient: 25-34 minutes Time was spent: preparing to see the patient(eg.review tests), ordering medications,tests, procedures, referring, communicating with other health laboratory animal care veterinarian, indepentently interpreting results, counseling the patient and care coordination
[2024-08-12] MEDS: Normal Saline - Diluent 50 ML VIAL IJ (17:59)
[2024-08-12] MEDS: Omnipaque 350 MG/ML 100 ML BTL IJ (18:00)
[2024-08-12 19:50] VITALS: BP 125/94; PULSE 94; RESP 20; TEMP 36.4; O2SAT 99
[2024-08-12] MEDS: Senna TAB 1 TAB PO (21:07)
[2024-08-12] MEDS: Ibuprofen 400 MG TAB PO (21:08)
[2024-08-12] MEDS: Normal Saline Flush 10 ML SYR IVP (23:56)
[2024-08-13] MEDS: Normal Saline Flush 10 ML SYR IVP (00:53)
[2024-08-13 07:12] LABS: Abs Immature Grans 0.24 10^3/uL (0.0-0.06); Absolute Neutrophil Count 0.52 10^3/uL (1.2-6.7); HCT 36.4 % (40.0-50.0); HGB 12.5 g/dL (13.5-17.5); MCH 30.6 pg (27.0-33.0); MCHC 34.3 % (32.0-36.0); MCV 89 fL (80-95); MPV 9.7 fL (8.0-11.0); Platelet Count 141 10^3/uL (130-400); RBC 4.09 10^6/uL (4.36-5.78); RDW 12.2 % (11.8-14.1); RDW-SD 39.8 fL
[2024-08-13 07:16] VITALS: BP 102/83; PULSE 84; RESP 15; TEMP 36.4; O2SAT 97
[2024-08-13 07:17] LABS: WBC 1.91 10^3/uL (4.4-10.8)
[2024-08-13 07:32] LABS: ALT 21 U/L (16-63); AST 15 U/L (15-37); Albumin 3.4 g/dL (3.4-5.0); Alkaline Phosphatase 67 U/L (46-116); Anion Gap 6.3 mmol/L (3-11); BUN 13 mg/dL (7-18); Bilirubin, Total 0.64 mg/dL (0.2-1.0); CO2 30.7 mmol/L (21.0-32.0); CREATININE 1.1 mg/dL (0.70-1.30); Calcium 8.8 mg/dL (8.5-10.1); Chloride 102 mmol/L (98-107); Estimated GFR 81.78 (mL/min/1.73m2); Glucose 120 mg/dL (74-106); Magnesium 2.2 mg/dL (1.8-2.4); Potassium 3.6 mmol/L (3.5-5.1); Sodium 139 mmol/L (136-145); Total Protein 6.9 g/dL (6.4-8.2)
[2024-08-13 07:42] LABS: C-Reactive Protein 4.73 mg/dL (<or=0.5); PHOSPHORUS 2.9 mg/dL (2.6-4.7)
[2024-08-13] MEDS: Lacosamide 100 MG TAB PO (08:04)
[2024-08-13] MEDS: Acetaminophen 325 MG TAB 650 MG PO (08:04)
[2024-08-13] MEDS: Omeprazole 20 MG CAPCR PO (08:05)
[2024-08-13] MEDS: lamoTRIgine 100 MG TAB 200 MG PO (08:05)
[2024-08-13] MEDS: Loratidine 10 MG TAB PO (08:05)
[2024-08-13] MEDS: Acyclovir 400 MG TAB PO (08:05)
[2024-08-13] MEDS: Allopurinol 300 MG TAB PO (08:06)
[2024-08-13] MEDS: predniSONE 20 MG TAB 100 MG PO (08:07)
[2024-08-13 08:08] LABS: Absolute Basophil Count 0.06 10^3/uL (0.0-0.2); Absolute Eosinophil Count 0.11 10^3/uL (0.0-0.7); Absolute Lymphocyte Count 0.65 10^3/uL (1.2-3.4); Absolute Monocyte Count 0.46 10^3/uL (0.1-0.8); Atypical Lymphocytes % 2 %; Metamyelocytes % 4; Myelocytes % 2
[2024-08-13] MEDS: CEFEPIME 2 GM in Normal Saline 100 ML IVPB (08:08)
[2024-08-13 08:09] LABS: Diff Comment Manual Differential; RBC Morphology Normal
[2024-08-13 09:49] VITALS: TEMP 36.2
[2024-08-13] MEDS: Sulfameth/Trimeth DS TAB 1 TAB PO (10:00)
--- NOTE | 2024-08-13 12:48 | W.PM.DS.N ---
Date of service: 08/13/24 Time of Service: 12:48 DS: Diagnosis Discharge Diagnosis (1) Fever and neutropenia: Status: Acute Discharge Plan Disposition Patient Disposition: Home Condition: Improving Discharge Details Reason For Visit: neutropenic fever Admit Date/Time: 08/12/24 00:45 Admit Provider: Shadi Jimenez Attending Provider: Shadi Jimenez Primary Care Provider: Cholo Whitfield Hospital Course Hospital Course: This 48-year-old male with history of B-cell lymphoma had just completed his first round of chemotherapy 1 week prior to admission presented with fever of 102.9 at home and on admission was noted to have an absolute white count of 400 WBCs and ANC was 0. His chest x-ray showed no acute infiltrates. CT scan of the abdomen was unremarkable except for some mild splenomegaly. Fluvid screen was negative for influenza RSV and COVID. Chemistry panel was unremarkable his procalcitonin was 0.1 C-reactive protein was elevated 2.[address] of the abdomen pelvis showed borderline splenic enlargement and mild bladder wall thickening but no kidney stones and no obstructive uropathy and no adenopathy. Blood cultures were obtained and came back no growth. Because he had had URI symptoms and throat culture was obtained for strep and came back negative for beta-hemolytic strep. Patient was empirically treated with cefepime and monitored for 36 hours he had no fever spikes throughout his hospital stay. His highest temperature was 37.8 on admission and remained afebrile the rest of the time. Patient had been treated with filgrastim 300 mcg. Because of complaints of headache CT imaging of his head was performed and it showed the expected postoperative findings from his previous craniotomy and brain surgery from his seizure disorder. This showed evidence of a previous left temporal craniotomy and showed encephalomalacia involving left temporal lobe. No acute infarct or mass effect was seen however incidental finding was a 3 to 4 mm linear hyperdensity in the high posterior left parietal lobe for which the radiologist read this as pharmaceutical service representative of parenchymal calcification versus vascular malformation. Nevertheless hemorrhage could not be entirely excluded and the radiologist recommended noncontrast CT scan for follow-up to document stability. On the morning of discharge patient was feeling great had no further headaches headaches have resolved with use of Tylenol and Motrin. Patient had no diplopia nausea or vomiting or headaches and therefore was felt that this 3 to 4 mm linear hyperdensity is most likely pharmaceutical service representative of calcification and scar tissue from his previous brain surgery. I called on the radiology to try to reach out to Dr. Viveros who is the radiologist on-call although she was not the radiologist to read the CT scan as it been read by Dr. Danie Rosa to try to get some clarification on the findings. Present time the patient would like to be discharged she is feeling great and I doubt very much that this is pharmaceutical service representative of my cerebral hemorrhage. Of note the patient never had any thrombocytopenia during his hospital course therefore it is unlikely that he would have a spontaneous cerebral hemorrhage. Nevertheless I did discuss this with the patient and told him that although it is unlikely to be pharmaceutical service representative of the hemorrhage and more likely represents some scar tissue from his previous brain surgery however should he develop sudden onset severe headaches or diplopia or nausea or vomiting or syncope he or his family should call 911 and have him brought to the nearest emergency room for evaluation. I explained the patient that I did not find a source for his fever. Of note he does have chronic back pain and when he presented to the hospital he did have lower back pain which also has since resolved. 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 I will empirically treat him for URI with 5-day course of cefpodoxime 200 mg twice a day. Patient should have a follow-up CBC with differential next week to monitor his neutropenia and follow-up with his primary care provider within a week and he should see his oncologist within the same timeframe. Home Meds and New Rx's Prescriptions: New cefpodoxime 200 mg tablet 200 mg PO BID 5 Days Qty: 10 0RF Rx Instructions: must administer with a meal/food Continued lamotrigine 200 mg tablet 200 mg PO BID Qty: 180 3RF Vimpat 200 mg tablet 100 mg PO BID Qty: 90 3RF ibuprofen 200 mg capsule 400 mg PO TID-QID PRN sulfamethoxazole-trimethoprim 800-160 mg tablet 1 tab PO DAILY Patient Comments: mon, wed frid acyclovir 400 mg tablet 400 mg PO BID allopurinol 300 mg tablet 300 mg PO DAILY prednisone 50 mg tablet 100 mg PO DAILY ondansetron 8 mg tablet,disintegrating 8 mg PO BID prochlorperazine maleate [Compazine] 10 mg tablet 10 mg PO TID sennosides [senna] 8.6 mg tablet 8.6 mg PO QD-BID PRN omeprazole 20 mg capsule,delayed release(DR/EC) 20 mg PO DAILY loratadine [Claritin] 10 mg tablet 10 mg PO DAILY Discharge Instructions Instructions: Fever of Unknown Origin, Neutropenia and fever in people being treated for cancer Additional Instructions: You were treated for fever associated with neutorpenia (low number of white blood cells called neutrophils). This often happens after chemotherapy. The concern is that if you have a fever and chills and have neutropenia, you may be developing and infection and become septic, i.e. severe infection that can overwhelm the body's ability to fight infection. You had a chest xray that did not show any lung infection. Your blood cultures came back w/ no growth of bacteria in the blood stream. Your neutropenia was treated w/ a drug called filgastim, this helps the white blood cells recover. You were put on an iv antibiotic called cefepime. Your throat culture came back negative for Strep. You will be sent home on a short course of antibiotics to cover for any upper respiratory infection. I am sending you w/ an prescription for 5 days of cefpodoxime. Because you came in with a headache, a CT of the head was done. This showed the expected chronic findings of your prior surgery involving the left temporal lobe for which you had done for treatment of your seizure disorder. There is expected encephalomalacia which is degeneration around the area of the prior surery. There is some calcifications. One area of concern is a 3 to 4 mm hyperdense area in the left parietal lobe for which the radiologist indicated this may be calcifications or a vascular malformation but he could not exclude a hemorrhage (bleed) in the brain. You have indicated that your headache resolved overnight after you were treated w/ antibiotics, tylenol and motrin. However, if you have worsening headaches, double vision, acute nausea or vomiting then call 911 to be brought back to the hospital. This area of concern is most likely calcification from your prior brain surgery and some residual scar tissue however if you develope any of the above mentioned symptoms you should be evaluated immediately. Stand Alone Forms: Nursing Discharge Form Referrals: Javier Zhang DO [ NON-[facility] STAFF PHYSICIAN] - 08/19/24 1:20 am Activity:: Activity as Tolerated Equipment/Supplies:: No Equipment Needed Diet:: Normal Diet Discharge Orders Discharge Orders: Discharge Order (Routine); Ordered 08/13/24 Ordered By: Kenrick Gomez DS: Summary Time Spent with Patient providing and/or coordinating discharge services: Greater than 30 minutes Specific discharge activities: Interview/exam of patient; review of discharge instructions, completion of prescriptions/discharge instructions; discussion w/ nursing and CM; documentation of hospital visit Status at Discharge Functional status at discharge: independent ambulation Overall status at discharge: patient is back to baseline Mental Status: mental status grossly normal Speech and Movement: speech and movement normal Mood: congruent mood Affect: normal affect Quality:SDOH Health Related Social Needs: No Data to Display Exam Narrative Exam Narrative: Patient is dressed alert up out of bed says he feels great denies any headaches or blurred vision, is only complaining of some postnasal drainage and stuffiness in his nares Neck is supple nontender Lungs are clear to auscultation Heart is regular rate and rhythm Psych Mental Status: mental status grossly normal Speech and Movement: speech and movement normal Mood: congruent mood Affect: normal affect DS: Data Vitals/I&O Vitals and I&O: Vital Signs Temperature 36.2 C L 08/13/24 09:49 Temperature Source Temporal Artery Scan 08/13/24 09:49 Pulse 84 08/13/24 07:16 Pulse Rhythm Regular 08/12/24 00:58 Pulse Strength Normal 08/11/24 22:55 Respiratory Rate 15 08/13/24 07:16 Respiratory Effort Normal 08/12/24 00:58 Respiratory Depth Normal 08/12/24 00:58 Respiratory Pattern Normal 08/12/24 00:58 Blood Pressure 102/83 08/13/24 07:16 Blood Pressure Mean 90 08/11/24 22:55 Blood Pressure Position Sitting 08/11/24 22:55 Pulse Oximetry 97 08/13/24 07:16 Oxygen Delivery Method Room Air 08/13/24 07:16 Oxygen Flow Rate 0 08/13/24 07:16 Pain Level 2 08/13/24 07:16 Comment pain localized to back 08/13/24 07:16 Intake & Output 08/12/24 08/13/24 08/13/24 23:59 11:59 23:59 Intake Total 100 / 200 1200 / 1200 Output Total 750 / 1250 1075 / 1075 Balance -650 / -1050 125 / 125 Intake: IV 100 / 200 200 / 200 Oral 1000 / 1000 Output: Urine 750 / 1250 1075 / 1075 Other: Urine Color Straw Light Cheryl Urine Appearance Clear Clear Urine Odor Normal Normal Comment pt voiding in urinal voiding in urinal Stool Size Moderate Stool Characteristics Formed Voiding Methods Urinal Urinal Data Completed and Pending Labs on day of discharge: Labs from last 24 hours 08/13/24 08/12/24 08/11/24 06:45 07:35 21:03 WBC 1.91 L* 0.63 L* RBC 4.09 L 4.00 L Hgb 12.5 L 12.2 L Hct 36.4 L 35.0 L MCV 89 88 MCH 30.6 30.5 MCHC 34.3 34.9 RDW 12.2 12.4 Plt Count 141 164 MPV 9.7 8.8 Immature Gran % 0.0 0.0 Neutrophils % 27.0 10.0 Band Neutrophils % 1 Lymphocytes % 32.0 52.0 Atypical Lymphs % 2 Monocytes % 24.0 20.0 Eosinophils % 6.0 16.0 Basophils % 3.0 1.0 Metamyelocytes % 4 Myelocytes % 2 Nucleated RBC % 0.0 0.0 Absolute Neutrophils 0.52 L 0.07 L* Absolute Lymphocytes 0.65 L 0.33 L Absolute Monocytes 0.46 0.13 Absolute Eosinophils 0.11 0.10 Absolute Basophils 0.06 0.01 RBC Morphology Normal Normal Sodium 139 Potassium 3.6 Chloride 102 Carbon Dioxide 30.7 Anion Gap 6.3 BUN 13 Creatinine 1.1 Est GFR (CKD-EPI 2020) 81.78 Glucose 120 H Calcium 8.8 Phosphorus 2.9 Magnesium 2.2 Total Bilirubin 0.64 AST 15 ALT 21 Alkaline Phosphatase 67 C-Reactive Protein 4.73 H Total Protein 6.9 Albumin 3.4 Path Cons Comment SEE COMMENT Preliminary micro results at discharge 08/11/24 21:20 Blood Culture - Preliminary Blood NO GROWTH 24 HOURS 08/11/24 21:03 Blood Culture - Preliminary Blood NO GROWTH 24 HOURS PFSH All Active Problems Fever and neutropenia (Acute) Lymphoma (Acute) Depressive disorder (Chronic) Hand paresthesia (Acute) Wax in ear (Acute) Fatigue (Acute) Memory loss (Acute) Partial epilepsy (Acute) New onset headache (Acute) Medical History Seizure, temporal lobe Lazy eye Surgical History History of cranial surgery L temporal lobectomy for seizures H/O vasectomy History of back surgery x3 at [facility]; last in 2003? Family History Father Diabetes Mother Alzheimer disease Sister Diabetes Social History Smoking/Tobacco Use Status: Never Smoking risk assessment performed?: Yes Alcohol Intake: never Details: OCCASTIONAL Substance use type: marijuana Details: CBD pen Household members: significant other Housing: house Number of Children: 3 current occupation: [employer] in [employer] What is your relationship status?: Panel score (0-1 are the most socially isolated patients): 0 What type of physical activity do you participate in: walking Seatbelt use: always Do you feel safe at home: Yes Do you feel safe in your relationship?: Yes Time Spent with Patient Time Spent with Patient: <45 minutes Time was spent: preparing to see the patient(eg.review tests)
--- NOTE | 2024-08-13 14:06 | NUR.NOTE ---
Nursing Note: Pt discharged to home. Neutropenic precautions education provided. Port deaccessed. All questions answered and all belonging sent with patient.
--- NOTE | 2024-08-13 15:10 | PDOC.CMDIS ---
Date of service: 08/13/24 Time of Service: 15:10 LACE Index Scoring Tool Questions: Length of Stay (in days): 1 Was the patient admitted via the E.D.?: Yes Comorbidities: Any Tumor (lymphoma) E.D. Visits: 0 Answers: Total Score: 6 Risk of Readmission: Low Risk Care Management Discharge Plan Reason for Hospitalization: neutropenic fever Discharge Plan: Brett returned home today with no new services. He was transported via private vehicle by family. He will follow up with his oncologist, his PCP and his discharge plan of care. He is happy to be going home. Patient/Family Education Needs: Review discharge instructions and limitations, discussion of self care needs including ask me three. SDOH Health Related Social Needs: No Data to Display
== END 2024-08-13 13:45 | disposition home or self-care (01) | DRG 809 ==
LOC: ER 08-12 00:44 → MS 08-12 00:46
PROVIDERS: Internal Medicine; Admitting Provider General Practice; Emergency Provider Registered Nurse Emergency; PCP Internal Medicine; Visit Provider General Practice
DX: D70.9 Neutropenia, unspecified (principal); C85.10 Unspecified B-cell lymphoma, unspecified site; G40.109 Localization-related (focal) (partial) symptomatic epilepsy and epileptic syndromes with simple partial seizures, not intractable, without status epilepticus; R50.81 Fever presenting with conditions classified elsewhere; Z79.899 Other long term (current) drug therapy; F32.A Depression, unspecified; R20.2 Paresthesia of skin; R41.3 Other amnesia; F12.90 Cannabis use, unspecified, uncomplicated; R51.9 Headache, unspecified; M54.50 Low back pain, unspecified; H53.002 Unspecified amblyopia, left eye; G93.89 Other specified disorders of brain; M47.817 Spondylosis without myelopathy or radiculopathy, lumbosacral region
CPT/HCPCS: 00123; 36415; 80053; 83690; 84145; 87040; 87637; 87880; 96365; 99285; 70460; 71045; 74177; 81003; 83605; 83735; 84100; 85025; 86140; 87081; 99222; 99231; 99239; J0692; J3490; J7512; Q5101

== ENCOUNTER 2024-08-25 02:08 | Outpatient (RCR) | payer BC, SELFPAY ==
[2024-08-04] MEDS: Normal Saline Flush 10 ML SYR IVP (07:12)
[2024-08-04 07:33] LABS: Abs Immature Grans 0.05 10^3/uL (0.0-0.06); Absolute Basophil Count 0.03 10^3/uL (0.0-0.2); Absolute Eosinophil Count 0.16 10^3/uL (0.0-0.7); Absolute Lymphocyte Count 1.36 10^3/uL (1.2-3.4); Absolute Monocyte Count 0.35 10^3/uL (0.1-0.8); Absolute Neutrophil Count 3.28 10^3/uL (1.2-6.7); Basophils % 0.6 %; Eosinophils % 3.1 %; HCT 41.6 % (40.0-50.0); HGB 14.1 g/dL (13.5-17.5); MCH 30.5 pg (27.0-33.0); MCHC 33.9 % (32.0-36.0); MCV 90 fL (80-95); MPV 9.4 fL (8.0-11.0); Monocytes % 6.7 %; Neutrophils % 62.6 %; Platelet Count 204 10^3/uL (130-400); RBC 4.63 10^6/uL (4.36-5.78); RDW 13.1 % (11.8-14.1); RDW-SD 42.9 fL; WBC 5.23 10^3/uL (4.4-10.8)
[2024-08-04 07:47] LABS: ALT 29 U/L (16-63); AST 15 U/L (15-37); Albumin 3.7 g/dL (3.4-5.0); Alkaline Phosphatase 71 U/L (46-116); Anion Gap 4.5 mmol/L (3-11); BUN 11 mg/dL (7-18); Bilirubin, Total 0.54 mg/dL (0.2-1.0); CO2 30.5 mmol/L (21.0-32.0); CREATININE 1.1 mg/dL (0.70-1.30); Calcium 9.1 mg/dL (8.5-10.1); Chloride 107 mmol/L (98-107); Estimated GFR 81.78 (mL/min/1.73m2); Glucose 114 mg/dL (74-106); LDH 191 U/L (85-227); Potassium 3.6 mmol/L (3.5-5.1); Sodium 142 mmol/L (136-145); Total Protein 7.1 g/dL (6.4-8.2)
[2024-08-11] MEDS: Normal Saline Flush 10 ML SYR IVP (11:22)
[2024-08-11 11:58] LABS: Absolute Basophil Count 0.01 10^3/uL (0.0-0.2); Absolute Eosinophil Count 0.12 10^3/uL (0.0-0.7); Absolute Monocyte Count 0.04 10^3/uL (0.1-0.8); Basophils % 1.7 %; HCT 35.3 % (40.0-50.0); HGB 12.2 g/dL (13.5-17.5); Lymphocytes % 66.7 %; MCH 30.7 pg (27.0-33.0); MCHC 34.6 % (32.0-36.0); MCV 89 fL (80-95); MPV 9.7 fL (8.0-11.0); Monocytes % 6.7 %; Neutrophils % 4.9 %; Platelet Count 160 10^3/uL (130-400); RBC 3.98 10^6/uL (4.36-5.78); RDW 12.5 % (11.8-14.1); RDW-SD 40.9 fL
[2024-08-11 12:18] LABS: Diff Comment Diff Reviewed; RBC Morphology Normal
[2024-08-11 12:22] LABS: ALT 23 U/L (16-63); AST 23 U/L (15-37); Albumin 3.6 g/dL (3.4-5.0); Alkaline Phosphatase 79 U/L (46-116); Anion Gap 4.2 mmol/L (3-11); BUN 12 mg/dL (7-18); Bilirubin, Total 1.16 mg/dL (0.2-1.0); CO2 32.8 mmol/L (21.0-32.0); Calcium 8.9 mg/dL (8.5-10.1); Chloride 102 mmol/L (98-107); Estimated GFR 91.69 (mL/min/1.73m2); Glucose 106 mg/dL (74-106); LDH 189 U/L (85-227); Potassium 3.6 mmol/L (3.5-5.1); Sodium 139 mmol/L (136-145); Total Protein 6.7 g/dL (6.4-8.2)
[2024-08-11 12:32] LABS: Absolute Neutrophil Count 0.03 10^3/uL (1.2-6.7)
[2024-08-25] MEDS: Normal Saline Flush 10 ML SYR IVP (06:56)
[2024-08-25 07:02] LABS: Abs Immature Grans 0.19 10^3/uL (0.0-0.06); Absolute Basophil Count 0.09 10^3/uL (0.0-0.2); Absolute Eosinophil Count 0.02 10^3/uL (0.0-0.7); Absolute Lymphocyte Count 0.84 10^3/uL (1.2-3.4); Absolute Monocyte Count 0.76 10^3/uL (0.1-0.8); Absolute Neutrophil Count 6.45 10^3/uL (1.2-6.7); Basophils % 1.1 %; Eosinophils % 0.2 %; HCT 38.2 % (40.0-50.0); HGB 13.3 g/dL (13.5-17.5); Immature Grans % 2.3 %; Lymphocytes % 10.1 %; MCH 31.4 pg (27.0-33.0); MCHC 34.8 % (32.0-36.0); MCV 90 fL (80-95); MPV 9.4 fL (8.0-11.0); Monocytes % 9.1 %; Neutrophils % 77.2 %; Platelet Count 306 10^3/uL (130-400); RBC 4.23 10^6/uL (4.36-5.78); RDW 15.7 % (11.8-14.1); RDW-SD 49.7 fL; WBC 8.35 10^3/uL (4.4-10.8)
[2024-08-25 07:17] LABS: ALT 22 U/L (16-63); AST 14 U/L (15-37); Albumin 3.5 g/dL (3.4-5.0); Alkaline Phosphatase 70 U/L (46-116); Amylase 78 U/L (25-115); Anion Gap 6.8 mmol/L (3-11); BUN 11 mg/dL (7-18); Bilirubin, Total 0.46 mg/dL (0.2-1.0); CO2 28.2 mmol/L (21.0-32.0); Chloride 102 mmol/L (98-107); Estimated GFR 91.69 (mL/min/1.73m2); Glucose 139 mg/dL (74-106); LDH 215 U/L (85-227); Lipase 25 U/L (16-77); Potassium 3.8 mmol/L (3.5-5.1); Sodium 137 mmol/L (136-145); Total Protein 7.3 g/dL (6.4-8.2); Uric Acid 2.5 mg/dL (3.5-7.2)
[2024-08-25 07:23] LABS: Calcium 9.2 mg/dL (8.5-10.1)
== END 2024-08-30 23:59 | disposition home or self-care (01) ==
LOC: INF 02:08
PROVIDERS: PCP Internal Medicine; Visit Provider Nurse Practitioner Adult Health
DX: C85.90 Non-Hodgkin lymphoma, unspecified, unspecified site (principal)
CPT/HCPCS: 36591; 80053; 83690; 82150; 83615; 84550; 85025

== ENCOUNTER 2024-09-15 02:52 | Outpatient (RCR) | payer BC, SELFPAY ==
[2024-09-01] MEDS: Normal Saline Flush 10 ML SYR IVP (07:49)
[2024-09-01 07:53] LABS: Abs Immature Grans 0.03 10^3/uL (0.0-0.06); HCT 35.3 % (40.0-50.0); HGB 11.7 g/dL (13.5-17.5); MCH 30.8 pg (27.0-33.0); MCHC 33.1 % (32.0-36.0); MCV 93 fL (80-95); MPV 9.3 fL (8.0-11.0); Platelet Count 249 10^3/uL (130-400); RDW 14.9 % (11.8-14.1); RDW-SD 49.2 fL; WBC 2.25 10^3/uL (4.4-10.8)
[2024-09-01 08:07] LABS: ALT 19 U/L (16-63); AST 6 U/L (15-37); Albumin 3.3 g/dL (3.4-5.0); Alkaline Phosphatase 92 U/L (46-116); Anion Gap 7.2 mmol/L (3-11); BUN 13 mg/dL (7-18); Bilirubin, Total 0.32 mg/dL (0.2-1.0); CO2 29.8 mmol/L (21.0-32.0); Calcium 8.7 mg/dL (8.5-10.1); Chloride 101 mmol/L (98-107); Estimated GFR 91.69 (mL/min/1.73m2); Glucose 134 mg/dL (74-106); LDH 188 U/L (85-227); Potassium 3.1 mmol/L (3.5-5.1); Sodium 138 mmol/L (136-145); Total Protein 6.6 g/dL (6.4-8.2); Uric Acid 2.1 mg/dL (3.5-7.2)
[2024-09-01 08:24] LABS: Absolute Basophil Count 0.02 10^3/uL (0.0-0.2); Absolute Eosinophil Count 0.05 10^3/uL (0.0-0.7); Absolute Lymphocyte Count 1.13 10^3/uL (1.2-3.4); Absolute Monocyte Count 0.05 10^3/uL (0.1-0.8); Absolute Neutrophil Count 1.01 10^3/uL (1.2-6.7); Atypical Lymphocytes % 1 %
[2024-09-15] MEDS: Normal Saline Flush 10 ML SYR IVP (07:01)
[2024-09-15 07:14] LABS: Abs Immature Grans 0.12 10^3/uL (0.0-0.06); Absolute Basophil Count 0.06 10^3/uL (0.0-0.2); Absolute Eosinophil Count 0.01 10^3/uL (0.0-0.7); Absolute Monocyte Count 0.55 10^3/uL (0.1-0.8); Absolute Neutrophil Count 4.29 10^3/uL (1.2-6.7); Basophils % 1.1 %; Eosinophils % 0.2 %; HCT 36.2 % (40.0-50.0); HGB 12.2 g/dL (13.5-17.5); Immature Grans % 2.1 %; Lymphocytes % 10.7 %; MCH 31.3 pg (27.0-33.0); MCHC 33.7 % (32.0-36.0); MCV 93 fL (80-95); MPV 9.2 fL (8.0-11.0); Monocytes % 9.8 %; Neutrophils % 76.1 %; Platelet Count 307 10^3/uL (130-400); RDW 17.2 % (11.8-14.1); RDW-SD 57.1 fL; WBC 5.63 10^3/uL (4.4-10.8)
[2024-09-15 07:37] LABS: BUN 15 mg/dL (7-18); Chloride 109 mmol/L (98-107); Sodium 145 mmol/L (136-145); Uric Acid 4.7 mg/dL (3.5-7.2)
[2024-09-15 09:10] LABS: ALT 25 U/L (16-63); AST 12 U/L (15-37); Albumin 3.5 g/dL (3.4-5.0); Alkaline Phosphatase 62 U/L (46-116); Anion Gap 8.6 mmol/L (3-11); Bilirubin, Total 0.43 mg/dL (0.2-1.0); CO2 27.4 mmol/L (21.0-32.0); CREATININE 1.1 mg/dL (0.70-1.30); Calcium 8.9 mg/dL (8.5-10.1); Estimated GFR 81.78 (mL/min/1.73m2); Glucose 106 mg/dL (74-106); LDH 214 U/L (85-227); Potassium 3.8 mmol/L (3.5-5.1); Total Protein 6.8 g/dL (6.4-8.2)
== END 2024-09-30 23:59 | disposition home or self-care (01) ==
LOC: INF 02:52
PROVIDERS: PCP Internal Medicine; Visit Provider Nurse Practitioner Adult Health
DX: C85.90 Non-Hodgkin lymphoma, unspecified, unspecified site (principal); C83.38 Diffuse large B-cell lymphoma, lymph nodes of multiple sites; Z45.2 Encounter for adjustment and management of vascular access device; Z79.899 Other long term (current) drug therapy
CPT/HCPCS: 36591; 80053; 83615; 84550; 85025

== ENCOUNTER 2024-09-21 22:37 | Inpatient (IN) | payer BC, SELFPAY ==
[2024-09-21 22:39] VITALS: BP 135/73; PULSE 112; RESP 26; TEMP 37.8; O2SAT 97
[2024-09-21 22:43] VITALS: PULSE 114; RESP 28; RESP 95; O2SAT 95
--- NOTE | 2024-09-21 22:45 | DI.CT_ITS ---
Exam(s) CT CHEST/ABD/PEL W EXAM: CT CHEST/ABD/PEL W CLINICAL HISTORY: Neutropenic fever, bloody diarrhea. TECHNIQUE: Imaging Protocol: Axial computed tomography images with coronal and sagittal reformatted images were created and reviewed CONTRAST MATERIAL: Intravenous: Omnipaque 350 Contrast volume:100 ml Oral: None COMPARISON: CT CT ABDOMEN PELVIS W from 08/11/2024 FINDINGS: CHEST: LUNGS: No infiltrates nor pleural effusions. No ominous pulmonary nodules.. MEDIASTINUM: There is no hilar nor mediastinal adenopathy. Visualized thyroid unremarkable. CARDIAC: Heart size is normal. There is no pericardial effusion.Caliber of the thoracic aorta is wit hin normal limits. OSSEOUS: No significant osseous lesions.No fractures.. PORT-A-CATH: Distal tip is at the SVC-RA junction ABDOMEN: GI: There is no ascites. No evidence of bowel obstruction, free air, nor abscess. No obvious coliti s pattern. No significant diverticular disease in the colon and no evidence of appendicitis. LIVER: There are no focal hepatic lesions nor dilatation of intrahepatic ducts. GALLBLADDER/BILIARY: No obvious gallbladder pathology. CBD is not dilated. PANCREAS: No evidence of pancreatic mass nor dilatation of the pancreatic duct. SPLEEN: There is mild splenomegaly. Cephalocaudal length of the spleen is 13.8 cm. There no discret e masses in the spleen. No evidence of splenic abscess. Splenic and portal veins are patent. ADRENALS: There are no significant adrenal masses. KIDNEYS: No calculi nor hydronephrosis. No solid renal masses. No cysts evident. The ureters are not dilated and there are no significant focal findings in the urinary bladder. ABDOMINAL AORTA: Abdominal aorta is not enlarged. LYMPH NODES: There is no retroperitoneal nor paraaortic adenopathy. No obvious significant mesenteri c adenopathy. ABDOMINAL WALL: Small bilateral fat containing inguinal hernias. PELVIS: LYMPH NODES: There is no intrapelvic nor inguinal adenopathy. GI: No evidence of appendicitis.No evidence of sigmoid diverticulitis. URINARY BLADDER: No calculi nor masses evident REPRODUCTIVE: Prostate size normal. Seminal vesicles unremarkable. OSSEOUS: No significant osseous lesions. No fractures. Chronic advanced disc space narrowing at L5- S1 level noted. Other disc spaces exhibit normal height. IMPRESSION: 1. No significant intrathoracic findings. Distal tip of the Port-A-Cath is at the SVC-RA junction. 2. Mild splenomegaly is noted. Craniocaudal length of the spleen is 13.8 cm. 3. No lymphadenopathy evident. 4. No evidence of bowel obstruction. No evidence of obvious colitis pattern. No ascites. RADIATION DOSE DELIVERED: 573.16mGy.cm Total DLP DATA REPOSITORY: All CT scans at this facility are submitted to the National Radiology Data Registry (NRDR) Dose Index Registry (DIR) with the [employer] (ACR). RADIATION OPTIMIZATION: All CT scans at this facility use at least one of these dose optimization te chniques: automated exposure control; mA and/or kV adjustment per patient size (includes targeted exa ms where dose is matched to clinical indication); or iterative reconstruction.
--- OUTSIDE RECORDS SUMMARY | 2024-09-21 22:56 | XMS_ITS | Encounter Summary ---
Author Organization [facility] Address [address] [place] [address] Care Team Providers Care Medical Staff Services Manager Name Role Phone Unknown, Provider Primary Care Provider [phone] Encounter Details Date Type Department Care Team (Late st Contact Info) Description 03/06/2021 Lab Requisition [facility] Pathology & Laboratory Medicine - [address] [address] Outr Resulting Lab, Provider Social History Tobacco [...] Outr Resulting Lab MICROBIOLOGY - GENERAL ORDERABLES [facility] [address] [place] [address] * COVID-19 TESTING (03/06/2021 9:10 EDT) COVID-19 rt-PCR Result Negative Negative 03/07/2021 14:08 EDT [facility] Comment: This test has [...] was performed using the beulah SARS-CoV-2 assay ([facility] on the Beulah 6800 System Performing Lab [facility] [address] [facility] Lab 03/07/2021 14:08 EDT [facility] Swab 03/06/2021 9:10 EDT 03/06/2021 20:46 EDT Provider Outr Resulting Lab MICROBIOLOGY - GENERAL ORDERABLES [facility] [address] [place] [address] documented in this encounter Visit Diagnoses Not on filedocumented in this encounter Care Teams Medical Staff Services Manager Relationship Specialty Start Date End Date Unknown, Provider, PCP - General 09/11/15 documented as of this encounter
--- OUTSIDE RECORDS SUMMARY | 2024-09-21 22:56 | XMS_ITS | Encounter Summary ---
Author Organization [facility] Address [facility] [place] [address] Care Team Providers Care President & Founder Name Role Phone Danie Connor DO Primary Care Provider [phone] Reason for Visit * Reason Comments Injections * Treatment/Therapy Plan Authorization (Routine) - Authorized [...] 10MG, INJECTION (ADRIAMYCIN) TC CYCLOPHOSPHAMIDE, 100MG (CYTOXAN) [id number] (POLATUZUMAB VEDOTIN-PIIQ) Brett Herr MD [facility] DR HEMATOLOGY [place] [address] Stj Hem Onc Infusion [address] [place] [phone] Referral ID Status Reason Start Date Expiration Date V isits Requested Visits Authorized [id number] Authorized 07/23/2024 07/23/2025 1 104 Encounter Details Date Type Department Care Team (Late st Contact Info) Description 09/16/2024 11:00 AM EDT Infusion Hematology Oncology at [address] [phone] Diffuse large B-cell lymphoma of [...] Sign Reading Time Taken Comments Blood Pressure 118/70 09/16/2024 11:13 AM EDT Pulse 88 09/16/2024 11:13 AM EDT Temperature 36.4 ??C (97.5 ??F) 09/16/2024 11:13 AM E DT Respiratory Rate 16 09/16/2024 11:13 AM EDT Oxygen Saturation 98% 09/16/2024 11:13 AM EDT Inhaled Oxygen Concentration - - Weight - - Height - - Body Mass Index - - documented in this encounter Progress Notes * Oumou Lira RN - 09/16/2024 11:00 AM EDT Infusion Note Diagnosis: DLBCL Treatment: Nyvepria Injection Administrations This Visit pegfilgrastim-apgf (Nyvepria) (6 mg/0.6 mL) injection 6 mg Admin Date 09/16/2024 Action Given Dose 6 mg Route Subcutaneous Documented By Oumou Lira, HUONG Patient aware to call clinic with any questions or concerns. Plan: Return to clinic as scheduled. documented in this encounter Plan of Treatment Upcoming Encounters Date Type Department Care Team (Late st Contact Info) Description 10/06/2024 9:00 AM EST Office Visit Hematology/Oncology at [address] [phone] Shayla Vuong, BALL MILL OPERATOR [facility] HEMATOLOGY [place] [address] 10/06/2024 9:30 AM EST Scheduled View Only Hematology/Oncology at [address] [phone] Ekta Womack RN 10/06/2024 9:30 AM EST Infusion Hematology Oncology at [address] [phone] 10/07/2024 12:30 PM EST Infusion Hematology Oncology at [address] [phone] 10/19/2024 10:00 AM EST Appointment [place] [address] Pia Cooper MD [facility] DR HEMATOLOGY [place] [address] 10/19/2024 11:00 AM EST Appointment [place] [phone] Pia Cooper MD [facility] DR HEMATOLOGY [place] [address] 2024 9:00 AM EST Office Visit Hematology/Oncology at [address] [phone] Pia Cooper MD [facility] HEMATOLOGY [place] [address] 2024 9:30 AM EST Scheduled View Only Hematology/Oncology at [address] [phone] Ekta Womack RN 2024 9:30 AM EST Infusion Hematology Oncology at [address] [phone] 11/17/2024 9:00 AM EST Office Visit Hematology/Oncology at [address] [phone] Shayla Vuong APRN [facility] DR HEMATOLOGY [place] [address] 11/17/2024 9:30 AM EST Scheduled View Only Hematology/Oncology at [address] [phone] Ekta Womack RN 11/17/2024 9:30 AM EST Infusion Hematology Oncology at [address] [phone] documented as of this encounter Visit Diagnoses Diagnosis 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 of multiple regions documented in this encounter Administered Medications Inactive Administered Medications - up to 3 most recent administrations Medication Order MAR Action Action Date Dose Rate Site pegfilgrastim-apgf (Nyvepria) (6 mg/0.6 mL) injection 6 mg 6 mg, Subcutaneous, ONCE, 1 dose, On Christina 09/16/24 at 1200, Bring to room temperature 15-30 mins before administration., Routine, This agent is not routinely stocked by pharmacy. I have spoken to the unit pharmacist regarding this medication: Yes / [facility] Pharmacy is aware Given 09/16/2024 11:16 AM EDT 6 mg Left Arm documented in this encounter Care Teams President & Founder Relationship Specialty Start Date End Date Danie Connor DO [address] [place] [phone] PCP - General Family Medicine 06/04/24 documented as of this encounter
--- OUTSIDE RECORDS SUMMARY | 2024-09-21 22:56 | XMS_ITS | Encounter Summary ---
Author Organization [facility] [place] [address] Care Team Providers Care Desk Pen Set Assembler Name Role Phone Danie Connor Primary Care Provider [phone] Reason for Visit * Reason Onset Date Comments Medication Refill 09/16/2024 Encounter Details Date Type Department Care Team ([facility] Contact Info) Description 09/16/2024 Refill Hematology [place] [address] Brett Herr MD [facility] HEMATOLOGY [place] [address] Social History Tobacco Use Types Packs/Day Years Used Date Smoking Tobacco: Never Smokeless Tobacco: Never Alcohol Use Standard Drinks/Week Comments No 0 (1 standard drink = 0.6 oz pur e alcohol) [facility] Inpatient Questions Answer Date Recorded [...] Upcoming Encounters Date Type Department Care Team ([facility] Contact Info) Description 10/06/2024 9:00 AM EST Office Visit Hematology/Oncology at [address] [phone] Shayla Vuong APRN [facility] DR HEMATOLOGY [place] [address] 10/06/2024 9:30 AM EST Scheduled View Only Hematology/Oncology at [address] [phone] Ekta Womack RN 10/06/2024 9:30 AM EST Infusion Hematology Oncology at [address] [phone] 10/07/2024 12:30 PM EST Infusion Hematology Oncology at [address] [phone] 10/19/2024 10:00 AM EST Appointment [place] [address] Pia Cooper MD [facility] DR HEMATOLOGY [place] [address] 10/19/2024 11:00 AM EST Appointment [place] [address] Pia Cooper MD [facility] DR HEMATOLOGY [place] [address] 2024 9:00 AM EST Office Visit Hematology/Oncology at [address] [phone] Pia Cooper MD [facility] HEMATOLOGY [place] [address] 2024 9:30 AM EST Scheduled View Only Hematology/Oncology at [address] [phone] Ekta Womack RN 2024 9:30 AM EST Infusion Hematology Oncology at [address] [phone] 11/17/2024 9:00 AM EST Office Visit Hematology/Oncology at [address] [phone] Shayla Vuong, CLEMENTE [facility] DR HEMATOLOGY [place] [address] 11/17/2024 9:30 AM EST Scheduled View Only Hematology/Oncology at [address] [phone] Ekta Womack RN 11/17/2024 9:30 AM EST Infusion Hematology Oncology at [address] [phone] documented as of this encounter Visit Diagnoses Not on filedocumented in this encounter Care Teams Desk Pen Set Assembler Relationship Specialty Start Date End Date Danie Connor DO [address] [place] [phone] PCP - General Family Medicine 06/04/24 documented as of this encounter
--- OUTSIDE RECORDS SUMMARY | 2024-09-21 22:56 | XMS_ITS | Encounter Summary ---
Author Organization [facility] Address [facility] [place] [address] Care Team Providers Care Electric Brain Wave Equipment Mechanic Name Role Phone Danie Connor Primary Care Provider Encounter Details Date Type Department Care Team (Latest Contact Info) Description 08/29/2024 Travel Social History Tobacco Use Types Packs/Day [...] 9:00 AM EST Office Visit Hematology/Oncology at [address] [phone] Shayla Vuong APRN [facility] DR [place] [address] 10/06/2024 9:30 AM EST Scheduled View Only Hematology/Oncology at [address] [phone] Ekta Womack RN 10/06/2024 9:30 AM EST Infusion Hematology Oncology at [address] [phone] 10/07/2024 12:30 PM EST Infusion Hematology Oncology at [address] [phone] 10/19/2024 10:00 AM EST Appointment [place] [address] Pia Cooper MD [facility] DR [place] [address] 10/19/2024 11:00 AM EST Appointment [place] [address] Pia Cooper MD [facility] DR [place] [address] 2024 9:00 AM EST Office Visit Hematology/Oncology at [address] [phone] Pia Cooper MD [facility] [place] [address] 2024 9:30 AM EST Scheduled View Only Hematology/Oncology at [address] [phone] Ekta Womack, HUONG 2024 9:30 AM EST Infusion Hematology Oncology at [address] [phone] 11/17/2024 9:00 AM EST Office Visit Hematology/Oncology at [address] [phone] Shayla Vuong APRN [facility] DR [place] [address] 11/17/2024 9:30 AM EST Scheduled View Only Hematology/Oncology at [address] [phone] Ekta Womack RN 11/17/2024 9:30 AM EST Infusion Hematology Oncology at [address] [phone] documented as of this encounter Visit Diagnoses Not on filedocumented in this encounter Care Teams Electric Brain Wave Equipment Mechanic Relationship Specialty Start Date End Date Danie Connor DO [address] [place] [phone] PCP - General Family Medicine 06/04/24 documented as of this encounter
--- OUTSIDE RECORDS SUMMARY | 2024-09-21 22:56 | XMS_ITS | Encounter Summary ---
Author Organization [facility] Address [facility] [place] [address] Care Team Providers Care Social Sciences Research Scientist Name Role Phone Danie Connor DO Primary Care Provider [phone] Encounter Details Date Type Department Care Team (Late st Contact Info) Description 09/15/2024 Notes Only Hematology/Oncology at [address] [phone] Aurea Galindo MSW OFFICE OF CARE MANAGEMENT [...] Progress Notes * Aurea Galindo MSW - 09/15/2024 12:05 PM EDT Follow up with brett and his sister during his infusion visit today. Brett indicated his ST Disability did come through so he has some income now. His sister indicated staff from [facility] helped him get on new insurance. Brett shared he is tired much of the time. He misses not going to work. His family/friends are helping him with some projects. He does get grumpy at times towards others. He indicated hei s coping as best he can. He is half way through his treatments. Offered support. Reminded Brett and his sister of [employer] availability and will continue as a resource for him. Brief assessment Supportive Counseling documented in this encounter Plan of Treatment Upcoming Encounters Date Type Department Care Team (Late st Contact Info) Description 10/06/2024 9:00 AM EST Office Visit Hematology/Oncology at [address] [phone] Shayla Vuong APRN [facility] DR HEMATOLOGY [place] [address] 10/06/2024 9:30 AM EST Scheduled View Only Hematology/Oncology at [address] [phone] Ekta Womack RN 10/06/2024 9:30 AM EST Infusion Hematology Oncology at [address] [phone] 10/07/2024 12:30 PM EST Infusion Hematology Oncology at [address] [phone] 10/19/2024 10:00 AM EST Appointment [place] [address] Pia Cooper MD [facility] HEMATOLOGY [place] [address] 10/19/2024 11:00 AM EST Appointment [place] [phone] Pia Cooper MD [facility] HEMATOLOGY [place] [address] 2024 9:00 AM EST Office Visit Hematology/Oncology at [address] [phone] Pia Cooper MD [facility] DR HEMATOLOGY [place] [address] 2024 9:30 AM EST Scheduled View Only Hematology/Oncology at [address] [phone] Ekta Womack, RN 2024 9:30 AM EST Infusion Hematology Oncology at [address] [phone] 11/17/2024 9:00 AM EST Office Visit Hematology/Oncology at [address] [phone] Shayla Vuong APRN [facility] DR HEMATOLOGY [place] [address] 11/17/2024 9:30 AM EST Scheduled View Only Hematology/Oncology at [address] [phone] Ekta Womack, RN 11/17/2024 9:30 AM EST Infusion Hematology Oncology at [address] [phone] documented as of this encounter Visit Diagnoses Not on filedocumented in this encounter Care Teams Social Sciences Research Scientist Relationship Specialty Start Date End Date Danie Connor DO [address] [place] [phone] PCP - General Family Medicine 06/04/24 documented as of this encounter
--- OUTSIDE RECORDS SUMMARY | 2024-09-21 22:56 | XMS_ITS | Encounter Summary ---
Author Organization [facility] Address [address] [place] [address] Care Team Providers Care Tax Accountant Name Role Phone Unknown, Provider Primary Care Provider Encounter Details Date Type Department Care Team (Late st Contact Info) Description 05/19/2024 Lab Requisition [facility] Pathology & Laboratory Medicine - [facility] [address] [place] [address] Moisés Chery MD [address] [place] [address] Encounter for other general examination Social History [...] mass, flow cytometric analysis: - An aberrant [id number]-[id number] B-cell population is identified. 14:30 EDT [facility] Attestation By the signature below, the attending physician certifies that they have 1) personally conducted a gross and/or microscopic examination of the described specimen(s), and/or personally interpreted the results of laboratory testing of the described specimen(s), and 2) personally rendered or confirmed the above diagnosis. 4 14:30 [facility] Amendment electronically signed by Catracho Hernandez MD on 05/20/2024 at 1430 at 1422 Clinical History 48 yo male with neck mass 4 14:30 [facility] Description Gating is performed [...] 94% of total analyzed cells. An aberrant Red Wing light chain-restricted B-cell population is identified (33% of total lymphocytes), expressing CD10, CD19 and CD20 with a high side scatter; while negative for CD5 and Lambda light chain expression. 4 14:30 [facility] Flow Markers CD10, CD19, CD20, CD3, CD4, CD45, CD5, CD8, [place], and Lambda. 4 14:30 [facility] FDA Disclaimer This test was developed and its performance characteristics determined by the Department of Pathology and Laboratory Medicine, [facility], [place], [place] It has not been cleared or [...] high complexity clinical laboratory testing. 4 14:30 [facility] Scanned Images 4 14:30 [facility] ZZUNK SOFT TISSUE MASS / Unknown 05/19/2024 17:26 EDT 05/20/2024 7:24 EDT Moisés Chery MD PATHOLOGY ORDERABLES [facility] [address] [phone] documented in this encounter Visit Diagnoses Diagnosis Encounter for other general examination documented in this encounter Care Teams Tax Accountant Relationship Specialty Start Date End Date Unknown, Provider, PCP - General 09/11/15 documented as of this encounter
--- OUTSIDE RECORDS SUMMARY | 2024-09-21 22:56 | XMS_ITS | Encounter Summary ---
Author Organization [facility] Address [facility] [place] [address] Care Team Providers Care Crop Or Livestock Tenant Farmer Name Role Phone Danie Connor Primary Care Provider [phone] Encounter Details Date Type Department Care Team (Latest Contact Info) Description 09/15/2024 Travel Social History Tobacco Use Types Packs/Day [...] 9:00 AM EST Office Visit Hematology/Oncology at [address] [phone] Shayla Vuong APRN [facility] [place] [address] 10/06/2024 9:30 AM EST Scheduled View Only Hematology/Oncology at [address] [phone] Ekta Womack RN 10/06/2024 9:30 AM EST Infusion Hematology Oncology at [address] [phone] 10/07/2024 12:30 PM EST Infusion Hematology Oncology at [address] [phone] 10/19/2024 10:00 AM EST Appointment [place] [address] Pia Cooper MD [facility] [place] [address] 10/19/2024 11:00 AM EST Appointment [place] [address] Pia Cooper MD [facility] [place] [address] 2024 9:00 AM EST Office Visit Hematology/Oncology at [address] [phone] Pia Cooper MD [facility] [place] [address] 2024 9:30 AM EST Scheduled View Only Hematology/Oncology at [address] [phone] Ekta Womack, HUONG 2024 9:30 AM EST Infusion Hematology Oncology at [address] [phone] 11/17/2024 9:00 AM EST Office Visit Hematology/Oncology at [address] [phone] Shayla Vuong APRN [facility] [place] [address] 11/17/2024 9:30 AM EST Scheduled View Only Hematology/Oncology at [address] [phone] Ekta Womack RN 11/17/2024 9:30 AM EST Infusion Hematology Oncology at [address] [phone] documented as of this encounter Visit Diagnoses Not on filedocumented in this encounter Care Teams Crop Or Livestock Tenant Farmer Relationship Specialty Start Date End Date Danie Connor DO [address] [place] [phone] PCP - General Family Medicine 06/04/24 documented as of this encounter
--- OUTSIDE RECORDS SUMMARY | 2024-09-21 22:56 | XMS_ITS | Encounter Summary ---
Author Organization [facility] Address [facility] [place] [address] Care Team Providers Care Recreational Facilities Motel Manager Name Role Phone Danie Connor DO Primary Care Provider [phone] Reason for Referral * Diagnostic Test (Routine) - New Request Specialty Diagnoses / Procedures Referred By Contac t Referred To Contact Radiology Diagnoses 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 of multiple regions Procedures NM PET CT Standard Plus Extremities and Head Pia Cooper MD [facility] [place] [address] [place] [address] Referral ID Status Reason Start Date Expiration Date Visits Requested Visits Authorized [id number] New Request Specialty Service Requested 09/01/2024 03/02/2026 1 1 Encounter Details Date Type Department Care Team (Late st Contact Info) Description 09/01/2024 8:00 AM EDT Office Visit Hematology/Oncology at [address] [phone] Pia Cooper MD [facility] [place] [address] Shayla Vuong, PSYCHOLOGICAL OPERATIONS [facility] [place] [address] 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 [...] Taken Comments Blood Pressure - - Pulse 92 09/01/2024 7:57 AM EDT Temperature 36.2 ??C (97.1 ??F) 09/01/2024 7:57 AM ED T Respiratory Rate 16 09/01/2024 7:57 AM EDT Oxygen Saturation 99% 09/01/2024 7:57 AM EDT Inhaled Oxygen Concentration - - Weight 89.4 kg (197 lb) 09/01/2024 7:57 AM EDT Height 170.2 cm (5' 7.01) 09/01/2024 7:57 AM ED T Body Mass Index 30.85 09/01/2024 7:57 AM EDT documented in this encounter Progress Notes * Pia Cooper MD - 09/01/2024 8:00 AM EDT OUTPATIENT HEMATOLOGY/ ONCOLOGY CONSULTATION Patient prefers to be called: Brett Spouse/Partner: Sister Ana and girlfriend Jill Other support: HISTORY PRESENT ILLNESS This patient is a [...] Treatment Course Galo- R-CHP initiated on 08/04/24 08/12/24 ADMIT [facility] for neutropenic fever. No identified source 08/25/24 C#2 INTERIM HISTORY Brett returns to clinic today for 1 week check following of C#2 Galo-R-CHP. He describes the following symptoms in response to treatment; Some nausea, using antiemetics. Constipation. No bone or back pain to date. Taking Claritin Overall bit better than last cycle. Sleeping for about 7 hours but then waking up is like to drivingAdvanced Liquid Logics card up around 4 AM 5 lb wt loss No fevers, chills, recurrent infections or intercurrent illnesses. No drenching sweats, unintentional weight loss or new enlarging palpable adenopathy. No new health-related concerns expressed today.We discussed his chemo experience and ways in which we can modify his supportive care medications to minimize side effects to which he was quite relieved. SOCIAL HISTORY- reviewed with significant changes noted 4 sisters and mother and girl friend for support. Sig other Jill - 3 kids from previous relationship - ages 32, 28, 20 8 grandchildren. 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 diphenhydrAMINE-acetaminophen (TYLENOL PM) 25-500 mg Tablet Take 2 tablets by mouth nightly. Yes loratadine (Claritin) 10 mg Tablet Take 10 mg by mouth daily. Yes senna-docusate (Pericolace) 8.6-50 mg Tablet Take 1 tablet by mouth daily. Yes omeprazole (PriLOSEC) [address] capsule Take 20 mg by mouth daily. Yes levoFLOXacin (Levaquin) 500 mg tablet Take 1 tablet by mouth daily. Yes sulfamethoxazole-trimethoprim DS (Bactrim DS) 800-160 mg tablet One tablet every Mon, Wed Friday Yes acyclovir (Zovirax) 400 mg tablet Take 1 tablet by mouth 2 times daily. Yes predniSONE (Deltasone) 50 mg tablet Take 2 tablets by mouth daily. Take on days 2-5 of each cycle of chemotherapy by mouth Yes ondansetron (Zofran) 8 mg tablet Take 1 tablet by mouth every 8 hours as needed for Nausea. Yes Vimpat 200 mg Tablet Take 1/2 (one-half) tablet by mouth twice daily Yes lamoTRIgine (LaMICtal) 200 mg Tablet Take 1 tablet by mouth 2 times daily. Yes ibuprofen (Advil) 200 mg tablet Take 400 mg by mouth as needed for Pain. prochlorperazine (Compazine) 10 mg tablet Take 1 tablet by mouth every 6 hours as needed for Nausea. Take every 6 hrs as needed for nausea Patient not taking: Reported on 09/01/2024 PAST MEDICAL HISTORY- reviewed Patient Active Problem List Diagnosis Code Seizure R56.9 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 of multiple regions C83.38 COMPREHENSIVE REVIEW OF SYSTEMS Besides what is mentioned in the HPI, all other systems are negative PHYSICAL EXAMINATION Vital signs: Pulse 92 Temp 36.2 ??C (97.1 ??F) (Temporal) Resp 16 Ht 170.2 cm (5' 7.01) Wt 89.4 kg (197lb) SpO2 99% BMI 30.85 kg/m?? Constitutional/General: well-developed, well-nourished, well-appearing 48 year old male in [facility] EENT: anicteric sclera, oropharnyx clear without hyperemia, exudative plaques or lesions. Neck/Thyroid: no palpable adenopathy. Well-healed biopsy site on right. Lungs: clear to auscultation bilaterally Heart: RRR, normal S1/S2, no murmurs/rubs/gallops Abdomen: soft, non-distended, non-tender to palpation, no masses or HSM. NABS LN: no palpable adenopathy Ext: no edema Neurologic: moving all extremities spontaneously, grossly intact LABORATORY EVALUATION Recent Results (from the past 72 hour(s)) External Chemistry Lab Results Result Value Ref Range Creatinine - External 1 Potassium - External 3.1 AST (SGOT) - External 6 ALT (SGPT) - External 19 Total Bilirubin - External 0.32 LDH - External 188 External Hematology Lab Results Result Value Ref Range WBC - External 2.25 Hemoglobin - External 11.7 Hematocrit - External 35.3 Platelets - External 249 Neutr ABS (ANC) - External 1.01 DIAGNOSTICS: Echo 06/24/24 at EF 56% PATHOLOGY: 06/28/24 A - Right submandibular mass - Diffuse large B-cell lymphoma- NOS (See Discussion) The large abnormal lymphocytes are positive for CD20, BCl2(<50%), cMYC(<40%), Bcl6+ and negative for the rest of the markers they were tested for . RADIOLOGY: 06/25/24 PET IMPRESSION 1. An FDG avid right sided level 2A cervical lymph node is suspicious for a site of lymphoma. 2. There is asymmetrically increased activity in the right submandibular gland. Asymmetric salivarygland activity may be a physiologic variant but involvement by lymphoma is also a consideration. 3. No active lymphoma is identified in the chest, abdomen or pelvis. ASSESSMENT/PLAN: Brett Campos is a 48 y.o. male presents with what is now known to be DLBCL.PET/CT has suggested disease localized to unilateral submandibular gland and possibly unilateral cervical lymph node. Excisional biopsy of submandibular mass revealed DLBCL. Anticipate overall either 4- 6 cycles of systemic therapy or a truncated systemic therapy with addition of radiation based on interval PET after cycle 4. Since our last visit, C#1 complicated by bone pain, GERD, H/A and admission for neutropenic fever despite pegfilgastrim. Here for day 8 midcycle check following C#2. Plan: - RTC in 2 weeks for cycle #3 Galo-R-CHP as scheduled - d/c Allopurinol - Given genny ANC, we will continue Udenyca support of day 2 of cycle [Neulasta- ONPRO not approved by insurance] - Continue antimicrobial prophylaxis with Bactrim DS 1 tab daily on Friday, Friday and Fridays for PJP prophylaxis and Acyclovir 400mg BID for suppression of herpes viruses - add levoflox X 14 days with with C#2 - Continue PPI - Brett was reminded that we remain available in the interim should questions/concerns arise. Discussed neutropenic precautions and contact numbers to call should he develop fever, chills, signs of infection. - General medical care and age appropriate health screenings remain under the direction of Danie Velazquez DO Cc: Danie Connor DO documented in this encounter Plan of Treatment Upcoming Encounters Date Type Department Care Team (Late st Contact Info) Description 10/06/2024 9:00 AM EST Office Visit Hematology/Oncology at [address] [phone] Shayla Vuong APRN [facility] [place] [address] 10/06/2024 9:30 AM EST Scheduled View Only Hematology/Oncology at [address] [phone] Ekta Womack, RN 10/06/2024 9:30 AM EST Infusion Hematology Oncology at [address] [phone] 10/07/2024 12:30 PM EST Infusion Hematology Oncology at [address] [phone] 10/19/2024 10:00 AM EST Appointment [place] [address] Pia Cooper MD [facility] [place] [address] 10/19/2024 11:00 AM EST Appointment [place] [address] Pia Cooper MD [facility] [place] [address] 2024 9:00 AM EST Office Visit Hematology/Oncology at [address] [phone] Pia Cooper MD [facility] [place] [address] 2024 9:30 AM EST Scheduled View Only Hematology/Oncology at [address] [phone] Ekta Womack RN 2024 9:30 AM EST Infusion Hematology Oncology at [address] [phone] 11/17/2024 9:00 AM EST Office Visit Hematology/Oncology at [address] [phone] Shayla Vuong, PSYCHOLOGICAL OPERATIONS [facility] [place] [address] 11/17/2024 9:30 AM EST Scheduled View Only Hematology/Oncology at [address] [phone] Ekta Womack RN 11/17/2024 9:30 AM EST Infusion Hematology Oncology at [address] [phone] Scheduled Orders Name Type Priority Associated Diagnoses Orde r Schedule NM PET CT Standard Plus Extremities and Head Imaging Routine 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 of multiple regions Expected: 10/22/2024, Expires: 03/02/2025 documented as of this encounter Procedures Procedure Name Priority Date/Time Associated Diagnosis Comments EXTERNAL HEMATOLOGY LAB RESULTS Routine 09/01/2024 EXTERNAL CHEMISTRY LAB RESULTS Routine 09/01/2024 documented in this encounter Results * External Hematology Lab Results (09/01/2024) WBC - External 2.25 Hemoglobin - External 11.7 Hematocrit - External 35.3 Platelets - External 249 Neutr ABS (ANC) - External 1.01 09/01/2024 Historical Provider MD [facility] * External Chemistry Lab Results (09/01/2024) Creatinine - External 1 Potassium - External 3.1 AST (SGOT) - External 6 ALT (SGPT) - External 19 Total Bilirubin - External 0.32 LDH - External 188 09/01/2024 Historical Provider MD [facility] documented in this encounter Visit Diagnoses Diagnosis 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 of multiple regions documented in this encounter Care Teams Recreational Facilities Motel Manager Relationship Specialty Start Date End Date Danie Connor DO [address] [place] [address] PCP - General Family Medicine 06/04/24 documented as of this encounter
--- OUTSIDE RECORDS SUMMARY | 2024-09-21 22:56 | XMS_ITS | Referral Summary ---
Author Organization [facility] Address [address] [place] [address] Care Team Providers Care Audio Production Instructor Name Role Phone Unknown, Provider Primary Care Provider [phone] Social History Tobacco Use Types Packs/Day Years Used Date Smoking Tobacco: Never Assessed Sex and Gender Information Value Date Recorded Sex Assigned at Not on file Gender Identity Not on file Sexual Orientation Not on file Plan of Treatment Not on file Care Teams Audio Production Instructor Relationship Specialty Start Date End Date Unknown, Provider, PCP - General 09/11/15
--- OUTSIDE RECORDS SUMMARY | 2024-09-21 22:56 | XMS_ITS | Encounter Summary ---
Author Organization [facility] [place] [address] Care Team Providers Care Cooper Apprentice Name Role Phone Danie Connor DO Primary Care Provider [phone] Encounter Details Date Type Department Care Team (Latest Contact Info) Description 09/15/2024 Unscheduled Encounter Hematology/Oncology at [address] [phone] Ekta Womack RN 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 [...] Progress Notes * Ekta Womack RN - 09/15/2024 9:07 AM EDT Clinical Research Nurse Note [place], [place] Miscellaneous lab kit draw for study #: Study Number:[id number] Description:Immune profiling for cancer Immunotherapy response Misc lab kit draw prior to infusion today. Date: 09/15/24 Time: 09:00 [ ] misc lab kit blood drawn from venipuncture performed by credit cashier [ ] medi port by credit cashier. [ x ] medi port was accessed by [facility] for SOC labs earlier today. [facility] lab kit blood drawn from accessed port and flushed with 20 mls of saline per institutional policy. Specimens sent to : [ x ] [address] floor pathology lab in cooler via radiotelegrapher [ ] Study ,via Fed ex per protocol requirements documented in this encounter Plan of Treatment Upcoming Encounters Date Type Department Care Team (Late st Contact Info) Description 10/06/2024 9:00 AM EST Office Visit Hematology/Oncology at [address] [phone] Shayla Vuong APRN [facility] HEMATOLOGY [place] [address] 10/06/2024 9:30 AM EST Scheduled View Only Hematology/Oncology at [address] [phone] Ekta Womack RN 10/06/2024 9:30 AM EST Infusion Hematology Oncology at [address] [phone] 10/07/2024 12:30 PM EST Infusion Hematology Oncology at [address] [phone] 10/19/2024 10:00 AM EST Appointment [place] [address] Pia Cooper MD [facility] HEMATOLOGY [place] [address] 10/19/2024 11:00 AM EST Appointment [place] [address] Pia Cooper MD [facility] HEMATOLOGY [place] [address] 2024 9:00 AM EST Office Visit Hematology/Oncology at [address] [phone] Pia Cooper MD [facility] DR [place] [address] 2024 9:30 AM EST Scheduled View Only Hematology/Oncology at [address] [phone] Ekta Womack, RN 2024 9:30 AM EST Infusion Hematology Oncology at [address] [phone] 11/17/2024 9:00 AM EST Office Visit Hematology/Oncology at [address] [phone] Shayla Vuong APRN [facility] DR HEMATOLOGY [place] [address] 11/17/2024 9:30 AM EST Scheduled View Only Hematology/Oncology at [address] [phone] Ekta Womack, RN 11/17/2024 9:30 AM EST Infusion Hematology Oncology at [address] [phone] documented as of this encounter Visit Diagnoses Diagnosis 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 of multiple regions documented in this encounter Care Teams Cooper Apprentice Relationship Specialty Start Date End Date Danie Connor DO [address] [place] [phone] PCP - General Family Medicine 06/04/24 documented as of this encounter
--- OUTSIDE RECORDS SUMMARY | 2024-09-21 22:56 | XMS_ITS | Encounter Summary ---
Author Organization [facility] Address [address] [place] [address] Care Team Providers Care Senior Pl Sql Developer Name Role Phone Unknown, Provider Primary Care Provider [phone] Encounter Details Date Type Department Care Team (Late st Contact Info) Description 05/21/2024 Lab Requisition [facility] Pathology & Laboratory Medicine - [address] [address] Catracho Hernandez MD [address] [facility] Level 2 [place] [phone] Encounter for other general examination Social History [...] * MANUEL AREVALO (05/19/2024 13:45 EDT) Sorayaaneous TestManuel SEE NOTE 05/27/2024 7:16 EDT [facility] Comment: Test ?Result ?Flag ??Unit ??RefValue [...] ??Source ?Right cervical mass ??Tissue ID ? [id number] ?Method ?SEE NOTE ?Locus and probes ?[Strategy;#Nuclei;Vendor] ?8CEN(D8Z2),8q24.1(MYC),14q32(IGH) ?[DFISH;100;AM] ?8q24.1(5'MYC,3'MYC) ?[BAP;100;AM] ?Probe strategies include: ?DFISH=dual color, double fusion; ?BAP=break-apart probe. ?Scoring Method: Manual ?Probe vendors include: ?AM = [employer] ([place], [place]) ??Additional Information ?SEE NOTE ?A portion of the testing process was performed at [place] ?[facility] site [id number]. ??Disclaimer ?SEE NOTE ?This test was developed and its performance characteristics ?determined by [facility] in a manner consistent with CLIA ?requirements. [...] ? Yuli Gallardo M.D. ?Test Performed by: ?[facility] ?[address] [place] [address] ?Laborer Drying Department: Roberto Key Ph.D.; CLIA# [id number] Tissue TISSUE SPECIMEN / Unknown 05/19/2024 13:45 EDT 05/21/2024 15:24 EDT Catracho Finnegan MD CHEMISTRY & BLOOD GA S ORDERABLES Performing Organization Address City/State/[facility] Co de Phone Number [facility] [address] [place] [address] documented in this encounter Visit Diagnoses Diagnosis Encounter for other general examination documented in this encounter Care Teams Senior Pl Sql Developer Relationship Specialty Start Date End Date Unknown, Provider, PCP - General 09/11/15 documented as of this encounter
--- OUTSIDE RECORDS SUMMARY | 2024-09-21 22:56 | XMS_ITS | Encounter Summary ---
Author Organization Count Includes [facility] Address [facility] [place] [address] Care Team Providers Care Lay Out Machine Operator Name Role Phone Danie Connor DO Primary Care Provider [phone] Encounter Details Date Type Department Care Team (Late st Contact Info) Description 09/21/2024 Telephone Hematology [place] [phone] Xena Cheek MD [facility] DR HEMATOLOGY/[place] [address] Social History Tobacco Use Types Packs/Day Years [...] Progress Notes * Xena Cheek MD - 09/21/2024 9:50 PM EDT I received a page Fever up to 99F, then one hour later 100F, took another one just now at 10PM measured 100.7F. Took one tylenol. Also noticed fresh blood in the stool ( specifically bloody in the toilet bowel, not when he wiped). Two times yesterday and 3 times today. I advised Brett to go to ED, preferably [facility] for workup given his active treatment for DLBCL and more capacities such as GI/gen surg if needed. Jill and Brett told me that it was quite some drive to , and that they had received good care at [facility], preferred to go to [facility]. Recommendation: -CBC, CMP STAT -escalate to broad spectrum abx, continue antiviral -Start IV PPI -CT AP wwo and other GI workup as clinically indicated Xena Cheek MD Hematology/ Medical Oncology Fellow [facility] Page #[phone] documented in this encounter Plan of Treatment Upcoming Encounters Date Type Department Care Team (Late st Contact Info) Description 10/06/2024 9:00 AM EST Office Visit Hematology/Oncology at [address] [phone] Shayla Vuong APRN [facility] DR [place] [address] 10/06/2024 9:30 AM EST Scheduled View Only Hematology/Oncology at [address] [phone] Ekta Womack, RN 10/06/2024 9:30 AM EST Infusion Hematology Oncology at [address] [phone] 10/07/2024 12:30 PM EST Infusion Hematology Oncology at [address] [phone] 10/19/2024 10:00 AM EST Appointment [place] [address] Pia Cooper MD [facility] [place] [address] 10/19/2024 11:00 AM EST Appointment [place] [address] Pia Cooper MD [facility] [place] [address] 2024 9:00 AM EST Office Visit Hematology/Oncology at [address] [phone] Pia Cooper MD [facility] [place] [address] 2024 9:30 AM EST Scheduled View Only Hematology/Oncology at [address] [phone] Ekta Womack, RN 2024 9:30 AM EST Infusion Hematology Oncology at [address] [phone] 11/17/2024 9:00 AM EST Office Visit Hematology/Oncology at [address] [phone] Shayla Vuong, CLEMENTE [facility] [place] [address] 11/17/2024 9:30 AM EST Scheduled View Only Hematology/Oncology at [address] [phone] Ekta Womack RN 11/17/2024 9:30 AM EST Infusion Hematology Oncology at [address] [phone] documented as of this encounter Visit Diagnoses Not on filedocumented in this encounter Care Teams Lay Out Machine Operator Relationship Specialty Start Date End Date Danie Connor DO [address] [place] [address] PCP - General Family Medicine 06/04/24 documented as of this encounter
--- OUTSIDE RECORDS SUMMARY | 2024-09-21 22:56 | XMS_ITS ---
Author Organization [facility] Address [facility] [place] [address] Care Team Providers Care Software Engineering Analyst Name Role Phone Danie Connor DO Primary Care Provider [phone] Active Problems Problem Noted Date Diagnosed Date Diffuse large B-cell lymphom a of lymph nodes of multiple regions 07/23/2024 Seizure 11/20/2015 Current Oncology Plans [facility] AMB HEM LYMPHOMA (NHL) - R-CHP / POLATUZUMAB VEDOTIN-PIIQ* Plan Start Date:08/04/2024 Plan Provider:Brett Herr MD Linked Problems Diffuse large B-cell lymphom a of lymph nodes of multiple regions Treatment Medications Current Day (Day 1 , Cycle 4 - Planned for 10/06/2024) Next Day (Day 2, Cycle 4 - Planned for 10/07/2024) cycloPHOSphamide (Cytoxan) i n sodium chloride 0.9% 250 mL infusionDOXOrubicin (Adriamycin)polatuzumab vedotin-piiq (Polivy) in sodium chloride 0.9% 100 mL infusion Recon SolnriTUXimab-abbs (Truxima) (2 mg/mL) in sodium chloride 0.9% [...] treatments are documented for this patient in [facility]. Treatments may have been administered in another system. Lifetime Dose Tracking * Chemical Lifetime Dose Automatic Entry Manual Entr y doxorubicin 147.835 mg/m2 (306 mg) 147.835 mg/m2 (306 mg) 0 mg/m2 (0 mg)
--- OUTSIDE RECORDS SUMMARY | 2024-09-21 22:56 | XMS_ITS | Clinical Summary ---
Author Organization [facility] Address [facility] [place] [address] Care Team Providers Care Ferryboat Operator Cable Name Role Phone Danie Connor DO Primary Care Provider [phone] Allergies No known active allergies Medications Medication Sig Dispensed Refills Start Date End Date Status lamoTRIgine (LaMICtal) 200 mg TabletIndications:R efractory epilepsy Take 1 tablet by mouth 2 times daily. 60 tablet 5 02/21/2021 Active Vimpat 200 mg TabletIndications:R efractory epilepsy Take 1/2 (one-half) tablet by mouth twice daily 60 tablet 3 08/24/2021 Active acyclovir (Zovirax) 400 mg tablet Take 1 tablet by mouth 2 times daily. 180 tablet 07/23/2024 Active prochlorperazine (Compazine) 10 mg tablet Take 1 tablet by mouth every 6 hours as needed for Nausea. Take every 6 hrs as needed for nausea 90 tablet 07/23/2024 Active predniSONE (Deltasone) 50 mg tablet Take 2 tablets by mouth daily. Take on days 2-5 of each cycle of chemotherapy by mouth 48 tablet 07/23/2024 Active ondansetron (Zofran) 8 mg tablet Take 1 tablet by mouth every 8 hours as needed for Nausea. 60 tablet 07/23/2024 Active sulfamethoxazole-tr imethoprim DS (Bactrim DS) 800-160 mg tabletIndications:N eed for pneumocystis prophylaxis One tablet every Mon, Wed Friday 12 tablet 5 08/04/2024 Active ibuprofen (Advil) 200 mg tablet Take 400 mg by mouth as needed for Pain. Active omeprazole (PriLOSEC) [address] capsule Take 20 mg by mouth daily. Active levoFLOXacin (Levaquin) 500 mg tablet Take 1 tablet by mouth daily. 14 tablet 5 08/25/2024 Active diphenhydrAMINE-ryanne taminophen (TYLENOL PM) 25-500 mg Tablet Take 2 tablets by mouth nightly. Active loratadine (Claritin) 10 mg Tablet Take 10 mg by mouth daily. Active senna-docusate (Pericolace) 8.6-50 mg Tablet Take 1 tablet by mouth daily. Active Active Problems Problem Noted Date Diagnosed Date Diffuse large B-cell lymphom a of lymph nodes of multiple regions 07/23/2024 Seizure 11/20/2015 Encounters Date Type Department Care Team Description 09/21/2024 Telephone Hematology [place] [phone] Xena Cheek MD 09/16/2024 11:00 AM EDT Infusion Hematology Oncology at [address] [phone] 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 of multiple regions 09/16/2024 Refill Hematology [place] [phone] Brett Herr MD 09/15/2024 9:00 AM EDT Infusion Hematology Oncology at [address] [phone] 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 of multiple regions 09/15/2024 8:30 AM EDT Office Visit Hematology/Oncolo gy at [address] [phone] Pia Cooper MD Stearns, Diane M, VACUUM DRUM DRIER OPERATOR 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 of multiple regions; High risk medication use 09/15/2024 Notes Only Hematology/Oncolo gy at [address] [phone] Aurea Galindo, BIOPHYSICS PROFESSOR 09/15/2024 Unscheduled Encounter Hematology/Oncolo gy at [address] [phone] Ekta Womack, RN 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 of multiple regions 09/15/2024 Travel 09/10/2024 Telephone Hematology/Oncolo gy at [address] [phone] Joyce Allred, HUONG Questions (sex) 09/01/2024 8:00 AM EDT Office Visit Hematology/Oncolo gy at [address] [phone] Pia Cooper MD Stearns, Diane M, VACUUM DRUM DRIER OPERATOR 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 of multiple regions 08/29/2024 Travel 08/26/2024 10:00 AM EDT Infusion Hematology Oncology at [address] [phone] 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 of multiple regions 08/25/2024 8:30 AM EDT Infusion Hematology Oncology at [address] [phone] 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 of multiple regions 08/25/2024 8:00 AM EDT Office Visit Hematology/Oncolo gy at [address] [phone] Pia Cooper MD Stearns, Diane M, VACUUM DRUM DRIER OPERATOR 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 of multiple regions 08/25/2024 Notes Only Hematology/Oncolo gy at [address] [phone] Aurea Galindo, BIOPHYSICS PROFESSOR 08/25/2024 Notes Only Hematology/Oncolo gy at [address] [phone] Ekta Womack RN 08/25/2024 Travel 08/23/2024 Travel 08/23/2024 Orders Only Hematology [place] [address] Shayla Vuong, VACUUM DRUM DRIER OPERATOR 08/13/2024 Telephone Hematology/Oncolo gy at [address] [phone] Corie Miranda RN 08/12/2024 Telephone Hematology/Oncolo gy at [address] [phone] Joyce Allred RN 08/11/2024 12:00 PM EDT Office Visit Hematology/Oncolo gy at [address] [phone] Shayla Vuong, VACUUM DRUM DRIER OPERATOR 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 of multiple regions; Encounter for chemotherapy management 08/11/2024 Telephone Hematology [place] [phone] Michelle Cast MD 08/11/2024 Telephone Hematology [place] [phone] Michelle Cast MD 08/11/2024 Travel 08/09/2024 Telephone Hematology Oncology Level [address] [place] [phone] Xena Cheek MD 08/09/2024 Travel 08/05/2024 8:30 AM EDT Infusion Hematology Oncology at [address] [phone] 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 of multiple regions 08/05/2024 Notes Only Hematology/Oncolo gy at [address] [phone] Aurea Galindo, BIOPHYSICS PROFESSOR 08/04/2024 8:30 AM EDT Infusion Hematology Oncology at [address] [phone] 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 of multiple regions 08/04/2024 8:00 AM EDT Office Visit Hematology/Oncolo gy at [address] [phone] StantonShayla stewart APRN Need for pneumocystis prophylaxis; 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 of multiple regions; High risk medication use 08/04/2024 Notes Only Hematology/Oncolo gy at [address] [phone] Aurea Galindo MSW 08/04/2024 Notes Only Hematology/Oncolo gy at [address] [phone] Ekta Womack RN 08/04/2024 Orders Only Hematology/Oncolo gy at [address] [phone] Shayla Vuong APRN 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 of multiple regions 08/04/2024 Travel 08/03/2024 Orders Only Hematology [place] [phone] Brett Herr MD 07/31/2024 Travel 07/27/2024 6:46 AM EDT - 07/27/2024 11:59 PM EDT Hospital En[place] [phone] Brett Herr MD 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 of multiple regions Discharge Disposition: Home 07/26/2024 Orders Only Hematology [place] [phone] Shayla Vuong APRN Lymphoma, unspecified body region, unspecified lymphoma type 07/24/2024 Orders [place] [phone] Donaldo Jha DO 07/23/2024 4:00 PM EDT Office Visit Hematology [place] [phone] Brett Herr MD 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 of multiple regions 07/23/2024 Travel 07/19/2024 Telephone Hematology [place] [address] Laquita Borden RN 07/19/2024 Telephone Hematology [place] [address] Laquita Borden RN 07/16/2024 Travel 07/08/2024 Orders Only Hematology and Oncology at [place] [phone] Shayla Vuong, VACUUM DRUM DRIER OPERATOR 07/06/2024 Orders Only Hematology and Oncology at [place] [phone] Shayla Vuong, VACUUM DRUM DRIER OPERATOR Encounter for monitoring cardiotoxic drug therapy; Encounter for echocardiogram before initiation of chemotherapy; 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 of multiple regions 06/28/2024 9:16 AM EDT - 06/28/2024 11:16 AM EDT Surgery Main Operating Room [place] [address] Dorinda Pastrana MD BIOPSY OR EXCISION OF LYMPH NODE(S), OPEN, SUPERFICIAL (WRVU 3.79) 06/28/2024 8:49 AM EDT Anesthesia Event Main Operating Room [place] [address] Dimitri Thorpe MD 06/28/2024 7:24 AM EDT - 06/28/2024 11:18 AM EDT Hospital Encounter Same Day Program at [place] [address] Dorinda Pastrana MD Lymphoma, unspecified body region, unspecified lymphoma type Discharge Disposition: Home 06/25/2024 6:15 AM EDT - 06/25/2024 11:59 PM EDT Hospital Encounter Nuclear Medicine at [place] [address] Brett Herr MD Discharge Disposition: Home 06/25/2024 6:15 AM EDT - 06/25/2024 11:59 PM EDT Hospital En[place] [address] Brett Herr MD Discharge Disposition: Home 06/24/2024 9:17 AM EDT - 06/24/2024 11:59 PM EDT Hospital Encounter Non-Invasive [place] [address] Shayla Vuong APRN Encounter for echocardiogram before initiation of chemotherapy; Lymphoma, unspecified body region, unspecified lymphoma type Discharge Disposition: Home 06/24/2024 Orders Only Hematology [place] [address] Shayla Vuong APRN Lymphoma, unspecified body region, unspecified lymphoma type 06/24/2024 Travel 06/22/2024 Travel from Last 3 Months Immunizations Name Administration Dates Next Due Tdap (Adacel, Boostrix) 03/09/2020 Social History Tobacco Use Types Packs/Day Years [...] - - Weight 91.2 kg (201 lb) 09/15/2024 8:09 AM EDT Height 170.2 cm (5' 7.01) 09/15/2024 8:09 AM ED T Body Mass Index 31.47 09/15/2024 8:09 AM EDT Plan of Treatment Upcoming Encounters Date Type Department Care Team (Late st Contact Info) Description 10/06/2024 9:00 AM EST Office Visit Hematology/Oncology at [address] [phone] Shayla Vuong APRN [facility] [place] [address] 10/06/2024 9:30 AM EST Scheduled View Only Hematology/Oncology at [address] [phone] Ekta Womack RN 10/06/2024 9:30 AM EST Infusion Hematology Oncology at [address] [phone] 10/07/2024 12:30 PM EST Infusion Hematology Oncology at [address] [phone] 10/19/2024 10:00 AM EST Appointment [place] [address] Pia Cooper MD [facility] [place] [address] 10/19/2024 11:00 AM EST App[place]ment [place] [address] Pia Cooper MD [facility] [place] [address] 2024 9:00 AM EST Office Visit Hematology/Oncology at [address] [phone] Pia Cooper MD [facility] [place] [address] 2024 9:30 AM EST Scheduled View Only Hematology/Oncology at [address] [phone] Ekta Womack RN 2024 9:30 AM EST Infusion Hematology Oncology at [address] [phone] 11/17/2024 9:00 AM EST Office Visit Hematology/Oncology at [address] [phone] Shayla Vuong, [facility] HEMATOLOGY [place] [address] 11/17/2024 9:30 AM EST Scheduled View Only Hematology/Oncology at [address] [phone] Ekta Womack RN 11/17/2024 9:30 AM EST Infusion Hematology Oncology at [address] [phone] Health Maintenance Due Date Last Done Comments CT Colonography 1975 Colonoscopy 1975 Colorectal Cancer Screening 1975 FIT DNA 1975 FIT 1975 Sigmoidoscopy (10 year) with FIT yearly 1975 Sigmoidoscopy 1973 Lipid Screening 1991 Hepatitis B vaccine (0-59 yrs) (1) 1992 Zoster vaccine (1 of 2) 2023 Covid-19 Vaccine (3 - 2022- season) 2024, 03/28/2021 Influenza (Flu) vaccine (1 o f 1 - Influenza standard series) 08/01/2024 Diabetes Screening (HgbA1C or Glucose) 06/11/2027 Tetanus/Diphtheria/Pertussis Vaccines (2 - Td or Tdap) 03/09/2030 03/09/2020 HIV screen Completed 06/11/2024 Hepatitis C Screening Completed 06/11/2024 Medical Devices Implanted Type Area Wireless Team Member Device Identifier Shelf Expiration Date Model / Serial / Lot [employer] 6.6fr Port Ct Vortex Low Pro Implanted:Qty: 1 on 07/27/2024 by Gutierrez Skinner PA IMPLANTS Left: Vein 06/30/2026 [id number] / [id number] I / [id number] Description:6.6FR LOW PRO VO RTEX ANGIODYNAMICS Procedures Procedure Name Priority Date/Time Associated Diagnosis Comments LAB SCAN 09/15/2024 12:00 AM EDT LAB SCAN 09/15/2024 12:00 AM EDT EXTERNAL HEMATOLOGY LAB RESULTS Routine 09/15/2024 EXTERNAL CHEMISTRY LAB RESULTS Routine 09/15/2024 LAB SCAN 09/01/2024 12:00 AM EDT LAB SCAN 09/01/2024 12:00 AM EDT EXTERNAL HEMATOLOGY LAB RESULTS Routine 09/01/2024 EXTERNAL CHEMISTRY LAB RESULTS Routine 09/01/2024 LAB SCAN 08/25/2024 12:00 AM EDT EXTERNAL HEMATOLOGY LAB RESULTS Routine 08/25/2024 EXTERNAL CHEMISTRY LAB RESULTS Routine 08/25/2024 LAB SCAN 08/11/2024 12:00 AM EDT EXTERNAL [...] AM EDT Biopsy/Excision Lymph Node Open Superficial (73039) Yes 06/28/2024 8:51 AM EDT Lymphoma, unspecified [...] unspecified lymphoma type HIV SCREEN, 4TH GENERATION ([facility]/CGP/APD/NLH) Routine 06/11/2024 10:10 AM EDT Lymphoma, unspecified body region, unspecified lymphoma type HEPATITIS C ANTIBODY Routine 06/11/2024 10:10 AM EDT Lymphoma, unspecified body region, unspecified lymphoma type COMPREHENSIVE METABOLIC PANEL Routine 06/11/2024 10:10 AM EDT Lymphoma, unspecified body region, unspecified lymphoma type from Last 3 Months or Most Recently Relevant to Health Maintenance Results * External Hematology Lab Results (09/15/2024) Only the most recent of5 resultswithin the time period is included. WBC - External 5.63 Hemoglobin - External 12.2 Hematocrit - External 36.2 Platelets - External 307 Neutr ABS (ANC) - External 4.29 09/15/2024 Historical Provider MD [facility] JEFFRIES * External Chemistry Lab Results (09/15/2024) Only the most recent of5 resultswithin the time period is included. Creatinine - External 1.1 Potassium - External 3.8 AST (SGOT) - External 12 ALT (SGPT) - External 25 Total Bilirubin - External 0.43 LDH - External 214 09/15/2024 Historical Provider MD PEDRO JEFFRIES * Scan Doc: Lab (09/15/2024 12:00 AM EDT) Only the most recent of7 resultswithin the time period is included. Narrative 09/15/2024 12:00 AM EDT Ordered by an unspecified provider. Scanning Provider MEDIA MGR SCAN EXT O RDR/RSLT * IR Mediport Placement (07/27/2024 9:06 AM EDT) Anatomical Region Laterality Modality X-Ray Angiograph y Narrative 07/27/2024 10:39 AM EDT Interventional Radiology Procedure Note Procedure: Chest port implant Indication: Diffuse large B-cell lymphoma, durable shelter central venous access for chemotherapy Procedure summary: [...] junction. The port may be used immediately. trimmer operator: Gutierrez Skinner PA-C. Present during the intraservice time as documented by the interventional radiology nurse. Attending of record: Shadi HUDSON was not present 07/27/2024 Brett Herr MD [facility] IR ORDERABLES * chromo report acquired (06/28/2024 9:55 AM EDT) Only the most recent of2 resultswithin the time period is included. Cytogenetics Acquired Report Final Report ? [id number] Specimen Type: Fixed Tissue Specimen Condition: 1 [...] using dual-color, break-apart probes for BCL6/3q27 rearrangement ([employer] shows 1.0% of 100 cells with a BCL6 rearrangement signal pattern. This is within the acceptable reference limits (0-7.4%). Thus, there is no evidence for BCL6/3q27 gene rearrangement. Interphase FISH analysis using dual-color, break-apart probes for MYC/8q24 rearrangement ([employer] shows 0% of 100 cells with a MYC rearrangement signal pattern. This is within acceptable reference limits (0-6.0%). Thus, there is no evidence for MYC/8q24 gene rearrangement. Interphase FISH analysis using dual-color, dual-fusion probes for MYC-IGH/t(8;14)(q2 4;q32) ([employer] shows 0% of 100 cells with [...] its performance characteristics were determined by the [facility] ([facility]) Cytogenetics Laboratory as required by The Clinical [...] the test? s accuracy and precision. The [facility] Cytogenetics Laboratory is certified under the CLIA? 88 as qualified to perform high complexity clinical laboratory testing. Chromosome alterations outside the regions complementary to these DNA FISH probes will not be detected. 24 (Electronic Signature) Verified By: Cheri Ph.D., FAC, Leah A Clinical Website Project Manager/Mol ecular Warehouse Shipping Receiving Clerk [facility] 06/28/2024 9:55 AM EDT 06/30/2024 11:19 AM EDT Dorinda Pastrana MD HEMATOLOGY ORDERABLE S [facility] [place] [address] * (ABNORMAL) Surgical Pathology Report (06/28/2024 9:55 AM EDT) Surgical Pathology Report [id number] ? Location: [facility]; [facility]; A The signing pathologist has (i) examined the relevant preparation(s) for the specimen(s) and (ii) rendered or confirmed the diagnosis(es). . ?Surgical Pathology DIAGNOSIS A - Right submandibular mass - ??Diffuse large B-cell lymphoma- NOS (See Discussion) Electronically signed by: ?Shira SALAS, Henry Verified: ??06/30/2024 17:09 ??Hematopathologist Performed at: ??-[facility] Dept. of Pathology, [place] [address] Custom Feed Corn Operator: Jami Garza MD, AP, ??CLIA Certificate: [id number] SYNOPTIC THIS RESULT REQUIRES PHYSICIAN/A.P.P. FOLLOW UP DISCUSSION The submandibular mass contains a diffuse proliferation ? of large abnormal lymphocytes with vesicular nuclear chromatin, prominent nucleoli and ample cytoplasm. Lymph nodes submitted with the mass show partial involvement. ? Flow cytometry ([id number]) ?? showed a CD10+ kappa immunoglobulin light [...] diagnostic tests. Morphologic appearance : ?DLBCL like Sipa-vy-hrqrsi classification : ?? Germinal center BCl2/MYC double-expressor [...] lymphoid neoplasms . Blood . 2016. 127 (20):8610-9833. Troy CP et al . Blood 103:275-282 [...] flow cytometry. Tissue is submitted to cytogenetics. Cable Stretcher And Tester sections in 5 cassettes labeled A1-A5. A1-A3: Cable Stretcher And Tester fleshy tissue A4: Single bisected possible lymph node A5: Single bisected possible lymph node ??jnr(A) [facility] AP Specimen 06/28/2024 9:55 AM EDT Dorinda Pastrana MD PATHOLOGY/CYTOLOGY O [place] [facility] [place] [address] * Specimen to Pathology (06/28/2024 9:55 AM EDT) AP Specimen 06/28/2024 9:55 AM EDT 06/28/2024 9:55 AM EDT Narrative [facility] - 06/28/2024 9:55 AM EDT Specimen requisition ordered. ??Separate Pathology report to follow Dorinda Pastrana MD PATHOLOGY/CYTOLOGY O RDERABLES Performing Organization Address [facility] Co de Phone Number [facility] [place] [address] * Immunophenotyping Flow Cytometry (06/28/2024 9:30 AM EDT) Immunophenotyping Flow See Comment [facility] Comment: When completed by the Pathologist, the Flow Cytometry Report ([id number]) will display under the Pathology Results section within eDH. Other Other / Unknown 06/28/2024 9 :30 AM EDT 06/28/2024 10:53 AM EDT Narrative Resulting Agency Comment Spec In Lab Dorinda Pastrana MD HEMATOLOGY ORDERABLE S Performing Organization Address [facility] de Phone Number [facility] [place] [address] * Flow Cytometry Report (06/28/2024 9:30 AM EDT) Flow Cytometry Report [id number] ? Location: [facility]; A The signing pathologist has (i) examined the relevant preparation(s) for the specimen(s) and (ii) rendered or confirmed the diagnosis(es). . ?Flow Cytometry DIAGNOSIS Flow cytometry diagnosis: CD10+ ??kappa immunoglobulin light chain restricted B-cell population identified. see discussion Electronically signed by: ?Henry Silva MD Verified: ??06/29/2024 14:16 ??Hematopathologist Performed at: ??-[facility] Dept. of Pathology, [place] [address] Custom Feed Corn Operator: Jami Garza MD, AP, ??CLIA Certificate: [id number] DISCUSSION Cell viability was 84% as assessed [...] by the Clinical Flow Cytometry Laboratory at [facility]. It has not been cleared or approved [...] high complexity clinical laboratory testing. SPECIMEN PROCESSING [id number] Cells for immunophenotypic analysis were derived from right submandibular mass. CD45 vs side scatter gating was utilized to identify a lymphoid analysis region that comprises approximately 87-89% of all cells. The following markers were assessed: CD2, CD3, CD4, CD5, CD7, CD8, CD10, CD19, CD20, CD23, CD38, CD45, CD56, FMC-7, kappa light chain, and lambda light chain. CLINICAL INFORMATION adenopathy [facility] 06/28/2024 9:30 AM EDT Dorinda Pastrana MD PATHOLOGY/CYTOLOGY O RDERABLES [facility] [place] [address] * NM PET CT Skull Base to Mid-thigh (06/25/2024 7:48 AM EDT) WORKSTATION ID [id number] RAD Anatomical Region Laterality Modality Positron Emissio [...] who have questions please contact the health wound care rn that requested your imaging first. ? Narrative 06/25/2024 8:30 AM EDT EXAMINATION: NM PET CT STANDARD SKULL BASE TO MID-THIGH CLINICAL HISTORY: Lymphoma staging C85.90, Non-Hodgkin lymphoma, unspecified, unspecified site TECHNIQUE: Following IV injection of 75-wegort-5-deoxyglucose (FDG) a standard uptake of approximately 60 [...] unspecified site TECHNIQUE: Following IV injection of 13-grajxq-6-deoxyglucose (FDG) astandard uptake of approximately 60 minutes, [...] patients who have questions please contactthe health wound care rn that requested your imaging first. Brett Herr MD IMG PET ORDERABLES * POCT Glucose (06/25/2024 6:29 AM EDT) Glucose, POC 103 65 - 199 mg/dL [facility] Comment: Supplemental ranges: <140 mg/dL before meals <180 mg/dL all other times of the day Blood 06/25/2024 6:29 AM EDT 06/25/2024 6:29 AM EDT Brett Herr MD POINT OF CARE TEST ORDERABLES [facility] [place] [address] * ECHO COMPLETE (06/24/2024 10:58 AM EDT) Anatomical Region Laterality Modality Cardiac Other 06/24/2024 10:1 5 AM EDT Narrative 06/24/2024 11:10 AM EDT [address] [place] [address] ? Echocardiogram Report Name: BRETT CAMPOS ? Study Date: 06/24/2024 10:15 AMBP: 130/86 mmHg ? Patient Location: 4A : 1975 ? Height: 173 cm ? Account: [id number] Age: 48 yrs ? Weight: 90 kg Gender: Male ?BSA: 2.0 m2 Ordering Physician: SHAYLA VUONG Referring Physician: SHAYLA VUONG Performed By: Clotilde Kaur RDCS Reason For Study: Encounter for echocardiogram before initiation of chemotherapy, Lymphoma Exam Location: [facility]. Interpretation Summary -Left ventricular [...] findings. No comparison study is available. Procedure Complete-[id number]. Left ventricular strain. Satisfactory quality. Left Ventricle [...] Note Júnior Higgins MD - 06/24/2024 [address] [place] [address] Echocardiogram Report Name: BRETT CAMPOS Study Date: 0:15 AMBP: 130/86 mmHg Patient Location: : 1975 Height: 173 cm Account: [id number] Age: 48 yrs Weight: 90 kg Gender: Male BSA: 2.0 m2 Ordering Physician: SHAYLA VUONG Referring Physician: SHAYLA VUONG Performed By: Clotilde Kaur RDCS Reason For Study: Encounter for echocardiogram before initiation ofchemotherapy, Lymphoma Exam Location: [facility]. Interpretation Summary -Left ventricular [...] findings. No comparison study is available. Procedure Complete-[id number]. Left ventricular strain. Satisfactory quality. Left Ventricle [...] 182.3 cm/sec RVSP(TR): 16.3 mmHg Shayla Vuong VACUUM DRUM DRIER OPERATOR ECHO ORDERABLES * Hepatitis C Antibody (06/11/2024 10:10 AM EDT) Hepatitis C Antibody Negative Negative [facility] Blood 06/11/2024 10:1 0 AM EDT 06/11/2024 10:24 AM EDT Narrative Resulting Agency Comment Spec In Lab Brett Herr MD CHEMISTRY ORDERABL ES Performing Organization Address [facility] Co de Phone Number [facility] [place] [address] * HIV Screen, 4th Generation ([facility]/CGP/APD/NLH) (06/11/2024 10:10 AM EDT) Pathologist [facility] HIV Ab/Ag Screen Negative Negative [facility] [facility] Comment: This 4th Generation HIV [...] HIV Comment Low Risk of HIV Infection [facility] Blood 06/11/2024 10:1 0 AM EDT 06/11/2024 10:24 AM EDT Narrative Resulting Agency Comment Spec In Lab Brett Herr MD CHEMISTRY ORDERABL ES Performing Organization Address [facility] Co de Phone Number [facility] [place] [address] * Comprehensive metabolic panel (non-fasting) (06/11/2024 10:10 AM EDT) [facility] Glucose 94 65 - 199 mg/dL [facility] Comment:Diabetes: >=200 mg/d L plus symptoms Blood Urea Nitrogen 11 10 - 20 mg/dL [facility] Creatinine 0.94 0.80 - 1.50 mg/dL [facility] Sodium 140 135 - 145 mmol/L [facility] Potassium 4.1 3.5 - 5.0 mmol/L [facility] Comment: Please note: ??Patients with WBC >100,000 may have falsely elevated Potassium levels. ??For accurate Potassium quantification in these patients send serum separator tube (gold top) for subsequent determinations. ??Contact the Clinical Chemistry Laboratory if there are any questions. Chloride 104 98 - 107 mmol/L [facility] Carbon Dioxide 27 22 - 31 mmol/L [facility] Anion Gap 9 5 - 15 mmol/L [facility] Calcium 9.3 8.5 - 10.5 mg/dL [facility] Protein, Total 7.0 6.1 - 8.0 g/dL [facility] Albumin 4.4 3.2 - 5.2 g/dL [facility] Aspartate Aminotransferase 14 0 - 39 unit/L [facility] Alanine Aminotransferase 23 0 - 55 unit/L [facility] Alkaline Phosphatase 61 40 - 130 unit/L [facility] Bilirubin, Total 0.6 0.2 - 1.3 mg/dL [facility] Est Glomerular Filtration Rate 99 >=60 mL/min/1. 73 m?? [facility] Comment: This patient's estimated GFR [...] Lab Brett Herr MD CHEMISTRY ORDERABL ES [facility] [place] [address] from Last 3 Months or Most Recently Relevant to Health Maintenance Advance Directives Documents on File Type Date Recorded Patient Cable Stretcher And Tester Expl anation Personal Cable Stretcher And Tester 08/11/2024 11:51 AM personal rep 08/11/24 * [...] capacity to make decision: Yes Care Teams Ferryboat Operator Cable Relationship Specialty Start Date End Date Danie Connor DO [address] [place] [phone] PCP - General Family Medicine 06/04/24
--- OUTSIDE RECORDS SUMMARY | 2024-09-21 22:56 | XMS_ITS | Encounter Summary ---
Author Organization [facility] Address [facility] [place] [address] Care Team Providers Care Mouse Breeder Name Role Phone Danie Connor DO Primary Care Provider [phone] Reason for Visit * Reason Comments Chemotherapy Cycle 3 Day 1 R-CHP & Polatuzumab * Treatment/Therapy Plan Authorization (Routine) - Authorized Specialty Diagnoses / Procedures Referred By Contfernando t Referred To Contact Diagnoses 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 of multiple regions Procedures TC PALONOSETRON HCL, 25MCG, INJECTION (ALOXI) TC APREPITANT, 1 MG, INJECTION TC PEGFILGRASTIM, EXCLUDES BIOSIMILAR, 0.5 MG, INJ TC RITUXIMAB-PVVR, BIOSIMILAR, (RUXIENCE), 10 MG, INJ TC DOXORUBICIN HCL, 10MG, INJECTION (ADRIAMYCIN) TC CYCLOPHOSPHAMIDE, 100MG (CYTOXAN) [id number] (POLATUZUMAB VEDOTIN-PIIQ) Brett Herr MD [facility] [place] [address] Stj Hem Onc Infusion [address] [place] [phone] Referral ID Status Reason Start Date Expiration Date V isits Requested Visits Authorized [id number] Authorized 07/23/2024 07/23/2025 1 104 Encounter Details Date Type Department Care Team (Late st Contact Info) Description 09/15/2024 9:00 AM EDT Infusion Hematology Oncology at [address] [phone] 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 [...] as of this encounter Progress Notes * Corie Miranda RN - 09/15/2024 9:00 AM EDT Images from the original note were not included. INFUSION THERAPY ADMINISTRATION NOTES DIAGNOSIS: DLBCL CYCLE #:3 Day 1 REASON FOR VISIT: Rituxan (rapid rate), Polatuzumab, Doxorubicin, Cyclophosphamide SUBJECTIVE Brett offers no complaints. He was seen in clinic prior to infusion. OBJECTIVE LAB DATA: EF 56% 06/24/24 IV ACCESS: Mediport accessed at [facility] for labs this morning. Blood return present and flushes easily. Pre administration: Chemotherapy orders independently verified for drug name, route, and dosage per patient's height, weight and BSA by Corie Miranda, [facility] onsite. REACTIONS (DESCRIPTION, TIME, INTERVENTION AND EFFECTIVENESS) none ASSESSMENT Brett was awake, alert and tolerated treatment well. PLAN Return to clinic tomorrow for udenyca. documented in this encounter Plan of Treatment Upcoming Encounters Date Type Department Care Team (Late st Contact Info) Description 10/06/2024 9:00 AM EST Office Visit Hematology/Oncology at [address] [phone] Shayla Vuong APRN [facility] [address] [place] [address] 10/06/2024 9:30 AM EST Scheduled View Only Hematology/Oncology at [address] [phone] Ekta Womack RN 10/06/2024 9:30 AM EST Infusion Hematology Oncology at [address] [phone] 10/07/2024 12:30 PM EST Infusion Hematology Oncology at [address] [phone] 10/19/2024 10:00 AM EST Appointment [place] [address] Pia Cooper MD [facility] [address] [place] [address] 10/19/2024 11:00 AM EST Appoint[place] [address] Pia Cooper MD [facility] [place] [address] 2024 9:00 AM EST Office Visit Hematology/Oncology at [address] [phone] Pia Cooper MD [facility] [address] [place] [address] 2024 9:30 AM EST Scheduled View Only Hematology/Oncology at [address] [phone] Ekta Womack RN 2024 9:30 AM EST Infusion Hematology Oncology at [address] [phone] 11/17/2024 9:00 AM EST Office Visit Hematology/Oncology at [address] [phone] Shayla Vuong APRN [facility] HEMATOLOGY AND [place] [address] 11/17/2024 9:30 AM EST Scheduled View Only Hematology/Oncology at [address] [phone] Ekta Womack RN 11/17/2024 9:30 AM EST Infusion Hematology Oncology at [address] [phone] documented as of this encounter Visit Diagnoses Diagnosis 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 of multiple regions documented in this encounter Administered Medications Inactive Administered Medications - up to 3 most recent administrations Medication Order MAR Action Action Date Dose Rate Site acetaminophen (Tylenol) tablet 650 mg 650 mg, Oral, ONCE, 1 dose, On Fri09/15/24 at 0900, Administer prior to riTUXimab., Routine Given 09/15/2024 9:06 AM EDT 650 mg aprepitant (Cinvanti) (7.2 mg/mL) injection emulsion 130 mg 130 mg, Intravenous, Administer over 2 Minutes, ONCE, 1 dose, On Fri09/15/24 at 0900, Alternative administration of IV push over 2 minutes is a recommendation from the first aid officer. Administer prior to chemotherapy., Routine Given 09/15/2024 9:11 AM EDT 130 mg cycloPHOSphamide (Cytoxan) 1,500 mg in sodium chloride 0.9% 325 mL infusion 1,500 mg (rounded from 1,545 mg = 750 mg/m2/dose ? 2.06 m2 Treatment Plan BSA from Recorded weight), Intravenous, ONCE, 1 dose, On Fri09/15/24 at 1000, Administer over 30 Minutes, Warning Vesicant/Irritant Medication New Bag 09/15/2024 12:41 PM EDT 1,500 mg 650 mL/hr diphenhydrAMINE (Benadryl) capsule 25 mg 25 mg, Oral, ONCE, 1 dose, On Fri09/15/24 at 0900, Administer prior to riTUXimab, Routine Given 09/15/2024 9:06 AM EDT 25 mg DOXOrubicin (Adriamycin) injection 100 mg 100 mg, Intravenous, ONCE, 1 dose, On Fri09/15/24 at 1000, Warning Vesicant/Irritant Medication Administer each syringe over a minimum of 3 minutes. Dose Ordered = 103 mg (50 mg/m2). Pharmacist rounded dose per procedure. Given 09/15/2024 12:32 PM EDT 100 mg famotidine (Pepcid) (10 mg/mL) injection 20 mg 20 mg, Intravenous, ONCE, 1 dose, On Fri09/15/24 at 0930 Given 09/15/2024 9:13 AM EDT 20 mg LORazepam (Ativan) tablet 0.5 mg 0.5 mg, Oral, ONCE, 1 dose, On Fri09/15/24 at 0900, Routine Given 09/15/2024 9:07 AM EDT 0.5 mg palonosetron (Aloxi) (0.05 mg/mL) injection 0.25 mg 0.25 mg, Intravenous, ONCE, 1 dose, On Fri09/15/24 at 0900, Administer over 30 seconds., Routine Given 09/15/2024 9:12 AM EDT 0.25 mg polatuzumab vedotin-piiq (Polivy) 150 mg in sodium chloride 0.9% 107.5 mL infusion 150 mg (rounded from 161.64 mg = 1.8 mg/kg/dose ? 89.8 kg Treatment plan Recorded weight), Intravenous, ONCE, 1 dose, On Fri09/15/24 at 1000, Administer over 30 Minutes, Monitor patients for infusion-related reactions during [...] given as an outpatient? Yes New Bag 09/15/2024 11:27 AM EDT 150 mg 215 mL/hr predniSONE (Deltasone) tablet 100 mg 100 mg, Oral, ONCE, 1 dose, On Fri09/15/24 at 0930, Give first dose prior to riTUXimab, Routine Given 09/15/2024 9:06 AM EDT 100 mg riTUXimab-abbs (Truxima) 800 mg in sodium chloride 0.9% 400 mL infusion 800 mg, Intravenous, ONCE, 1 dose, On Fri09/15/24 at 0930, Administer Per Protocol Dose Ordered = 773 mg (375 mg/mg). Pharmacist rounded dose per procedure., Patient is a candidate for rapid infusion riTUXimab? Yes, Is this product being used for treatment of malignant indication? Yes, Rituxan/Truxima are NON-PREFERRED brands. Please indicate why this product is specifically required (vs. preferred Ruxience brand): Other reason (comment required), Comments: Patient's insurance requires Truxima biosimilar New Bag 09/15/2024 9:48 AM EDT 800 mg sodium chloride 0.9 % (flush) (BD PosiFlush Normal Saline 0.9) flush 5-20 mL 5-20 mL, Intravenous, EVERY 1 MIN PRN, Starting on Fri09/15/24 at 0840, Until Fri09/15/24 at 1540, Line Care, Flush pertains to all indwelling lines. Flush per protocol found in the job aid using the link provided on this medication record. Refer to Intravenous (IV) Job Aid: Adult Flushing & Catheter Care (0813) job aid for additional information regarding guidelines and administration., Routine Given 09/15/2024 1:13 PM EDT 20 mLs sodium chloride 0.9% infusion 75 mL/hr, Intravenous, CONTINUOUS, Starting on Fri09/15/24 at 0900, Until Fri09/15/24 at 1540 New Bag 09/15/2024 9:07 AM EDT 75 mL/hr 75 mL/hr documented in this encounter Care Teams Mouse Breeder Relationship Specialty Start Date End Date Danie Connor DO [address] [place] [phone] PCP - General Family Medicine 06/04/24 documented as of this encounter
--- OUTSIDE RECORDS SUMMARY | 2024-09-21 22:56 | XMS_ITS | Encounter Summary ---
Author Organization [facility] Address [address] [place] [address] Care Team Providers Care Brand Strategy Manager Name Role Phone Unknown, Provider Primary Care Provider [phone] Encounter Details Date Type Department Care Team (Late st Contact Info) Description 05/19/2024 Lab Requisition [facility] Pathology & Laboratory Medicine - [facility] [address] [place] [address] [phone] Encounter for other general examination [...] management options, if applicable. 05/27/2024 11:41 EDT [facility] Final Diagnosis A. MASS, ADJACENT TO RIGHT SUBMANDIBULAR GLAND, CORE BIOPSY: - Large B-cell lymphoma. See comment. 05/27/2024 11:41 [facility] Diagnosis Comment Histologic sections [...] highlights background T-cells. Concurrent flow cytometric analysis ([id number]) shows a CD10 positive, kappa-restricted B-cell population that by light scatter criteria, are large in size. FISH for MYC rearrangements were performed (send out to [place]) and showed no MYC rearrangement and no [...] of tissue for flow cytometry, is recommended. Insurance Claim Approver slides of this case were reviewed at the intradepartmental consultation conference. 05/27/2024 11:41 [facility] Attestation By the signature below, the attending physician certifies that they have 1) personally conducted a gross and/or microscopic examination of the described specimen(s), and/or personally interpreted the results of laboratory testing of the described specimen(s), and 2) personally rendered or confirmed the above diagnosis. 05/27/2024 11:41 [facility] at 1141 Preliminary result electronically signed by Millicent Chris MD on 05/25/2024 at 1533 Ancillary Studies Immunoperoxidase stains were performed on this case to further characterize the lesion. ANTIBODY(CLONE) (BLOCK):RESULT CD3 (SP7, [employer]) (A1): SEE ABOVE DISCUSSION CD20 (L26, [place]) (A1): BCL-6 (G/191E/A8, [place]) (A1): BCL-2 Oncoprotein (124, [place]) (A1): Myc (Y69, [employer]) (A1): CD30 (Dilip-H2, [place]) (A1): Ki67 (MIB-1) (K2, [employer]) (A1): CD21 (2G9, [employer]) (A1): CD23 (SP23, [place]) (A1): DASHA PURA (KVS0751-V, [employer]) (A1): NOTE: One or more of [...] performance characteristics have been determined by [facility] and/or by the referring laboratory. The positive [...] high complexity clinical laboratory testing. 05/27/2024 11:41 [facility] Clinical History 3 cm mass immediately adjacent to but separate from R submandibular gland 05/27/2024 11:41 [facility] Gross Description A. Received [...] A2. Yuli Gallardo 05/20/2024 9:35 05/27/2024 11:41 [facility] Performing Lab [facility] 05/27/2024 11:41 [facility] Scanned Images 05/27/2024 11:41 EDT [facility] Tissue SOFT TISSUE / Unknown 05/19/2024 13:45 EDT 05/20/2024 7:17 EDT Moisés Chery PATHOLOGY ORDERABLES [facility] [address] [place] [address] documented in this encounter Visit Diagnoses Diagnosis Encounter for other general examination documented in this encounter Care Teams Brand Strategy Manager Relationship Specialty Start Date End Date Unknown, Provider, PCP - General 09/11/15 documented as of this encounter
--- OUTSIDE RECORDS SUMMARY | 2024-09-21 22:56 | XMS_ITS | Encounter Summary ---
Author Organization [facility] [place] [address] Care Team Providers Care Extra Gang Supervisor Name Role Phone Danie Connor DO Primary Care Provider [phone] Reason for Visit * Reason Onset Date Comments Questions 09/10/2024 sex Encounter Details Date Type Department Care Team (Late st Contact Info) Description 09/10/2024 Telephone Hematology/Oncology at [address] [phone] Joyce Allred RN Questions (sex) Social History Tobacco Use Types Packs/Day Years [...] encounter Miscellaneous Notes * Telephone Encounter - Joyce Allred RN - 09/10/2024 2:07 PM EDT Patient wanted to know if he needed to use protection while having sex. Explained he needed to use a condom for 3 days after chemo to protect his partner from any exposure to chemo. He needs to have some sort of protection to prevent partners from getting while on chemo. He agrees with plan. documented in this encounter Plan of Treatment Upcoming Encounters Date Type Department Care Team (Late st Contact Info) Description 10/06/2024 9:00 AM EST Office Visit Hematology/Oncology at [address] [phone] Shayla Vuong APRN [facility] HEMATOLOGY [place] [address] 10/06/2024 9:30 AM EST Scheduled View Only Hematology/Oncology at [address] [phone] Ekta Womack RN 10/06/2024 9:30 AM EST Infusion Hematology Oncology at [address] [phone] 10/07/2024 12:30 PM EST Infusion Hematology Oncology at [address] [phone] 10/19/2024 10:00 AM EST Appointment [place] [address] Pia Cooper MD [facility] HEMATOLOGY [place] [address] 10/19/2024 11:00 AM EST Appointment [place] [phone] Pia Cooper MD [facility] HEMATOLOGY [place] [address] 2024 9:00 AM EST Office Visit Hematology/Oncology at [address] [phone] Pia Cooper MD [facility] HEMATOLOGY [place] [address] 2024 9:30 AM EST Scheduled View Only Hematology/Oncology at [address] [phone] Ekta Womack, RN 2024 9:30 AM EST Infusion Hematology Oncology at [address] [phone] 11/17/2024 9:00 AM EST Office Visit Hematology/Oncology at [address] [phone] Shayla Vuong [facility] HEMATOLOGY AND ONCOLOGY [place] [phone] 11/17/2024 9:30 AM EST Scheduled View Only Hematology/Oncology at [address] [phone] Ekta Womack, RN 11/17/2024 9:30 AM EST Infusion Hematology Oncology at [address] [phone] documented as of this encounter Visit Diagnoses Not on filedocumented in this encounter Care Teams Extra Gang Supervisor Relationship Specialty Start Date End Date Danie Connor DO [address] [place] [phone] PCP - General Family Medicine 06/04/24 documented as of this encounter
--- OUTSIDE RECORDS SUMMARY | 2024-09-21 22:56 | XMS_ITS | Encounter Summary ---
Author Organization [facility] Address [address] [place] [address] Care Team Providers Care Real Estate Director Name Role Phone Unknown, Provider Primary Care Provider [phone] Encounter Details Date Type Department Care Team (Late st Contact Info) Description 05/19/[address] [facility] Pathology & Laboratory Medicine - [facility] [address] [place] [address] Dwain Leroy MD [address] [place] [phone] Encounter for other general examination Social History [...] Name Priority Date/Time Associated Diagnosis Comments NON CALL CENTER CONSULTANT/FNA CYTOLOGY Today 05/19/2024 13:45 EDT Encounter for other general examination documented in this encounter Results * NON CALL CENTER CONSULTANT/FNA CYTOLOGY (05/19/2024 13:45 EDT) Note to Patient The following pathology results have been interpreted by your pathologist and may be available to you before your health provider has had the opportunity to review them. Please allow time for your provider to receive these results and explore management options, if applicable. 05/24/2024 16:45 EDT [facility] Final Diagnosis A. NECK MASS (3 CM), RIGHT, IMMEDIATELY ADJACENT TO SUBMANDIBULAR GLAND, ULTRASOUND-GUIDED FINE NEEDLE ASPIRATION: - Atypical lymphocytes present. See comment. 05/24/2024 16:45 [facility] Diagnosis Comment Please refer to the concurrent flow cytometry and surgical pathology specimens for further characterization ([id number], [id number]). The technical component of the specimen processing was performed at the [facility] Pathology Department, [address] [place] [address] (CLIA [id number]). The professional component of the specimen evaluation (slide review and issuing of the final diagnosis) was performed at [facility], [address] [place] [address] (CLIA License Number [id number]). 05/24/2024 16:45 [facility] Attestation By the signature below, the attending physician certifies that they have personally conducted a gross and/or microscopic examination of the described specimens and rendered or confirmed the above diagnosis. 05/24/2024 16:45 [facility] at 1645 Rapid Diagnosis A.NECK MASS,3 CM,RIGHT,IMMEDIATE LY ADJACENT TO SUBMANDIBULAR GLAND,ULTRASOUND GUIDED FINE NEEDLE ASPIRATION: Evaluation Episode 1: Pass 1: Mostly dispersed population of small blue cells,probably background lymphoglandular bodies. Recommend cores for surgical pathology and flow cytometry. The above rapid on site evaluation was performed by pathologist Dr. Francis Rhodes at [facility], [address] [place], [place] [id number]. 05/19/2024; 1345 05/24/2024 16:45 [facility] Clinical History 3cm mass immediately adjacent to but separate from left submandibular gland 05/24/2024 16:45 [facility] Gross Description A. 1 fixed prepared slides, 2 air dried prepared slides, and 1 tube of CytoLyt were received and processed by selective cellular enhancement technique. 05/24/2024 16:45 [facility] Performing Lab [facility] 16:45 [facility] Scanned Images 05/24/2024 16:45 [facility] ZZUNK SOFT TISSUE / Unknown 05/19/2024 13:45 EDT 05/20/2024 6:19 EDT Dwain Leroy MD PATHOLOGY ORDERABLES [facility] [address] [place] [address] documented in this encounter Visit Diagnoses Diagnosis Encounter for other general examination documented in this encounter Care Teams Real Estate Director Relationship Specialty Start Date End Date Unknown, Provider, PCP - General 09/11/15 documented as of this encounter
--- OUTSIDE RECORDS SUMMARY | 2024-09-21 22:56 | XMS_ITS | Encounter Summary ---
Author Organization [facility] Address [address] [place] [address] Care Team Providers Care Resolution Analyst Name Role Phone Unavailable Primary Care Provider Unavailabl e Encounter Details Date Type Department Care Team (Latest Contact Info) Description 09/01/2015 7:31 EDT - 09/01/2015 23:59 EDT Hospital Encounter [facility] [address] [place] [address] Unknown, Provider, Discharge Disposition: Home or Self Care Social History Tobacco Use Types Packs/Day Years Used Date Smoking Tobacco: Never Assessed Sex and Gender Information Value Date Recorded Sex Assigned at Not on file Gender Identity Not on file Sexual Orientation Not on file documented as of this encounter Discharge Disposition Disposition Code Departure Means Destination Home or Self [facility]pc documented in this encounter Plan of Treatment Not on file documented as of this encounter Visit Diagnoses Not on filedocumented in this encounter
--- OUTSIDE RECORDS SUMMARY | 2024-09-21 22:56 | XMS_ITS | Clinical Summary ---
Author Organization [facility] Address [address] [place] [address] Care Team Providers Care Optical Engineer Name Role Phone Unknown, Provider Primary Care Provider [phone] Social History Tobacco Use Types Packs/Day Years Used Date Smoking Tobacco: Never Assessed Sex and Gender Information Value Date Recorded Sex Assigned at Not on file Gender Identity Not on file Sexual Orientation Not on file Plan of Treatment Health Maintenance Due Date Last Done Comments Hepatitis C Screen 1975 Hepatitis B Vaccine (1 of 3 - 19+ 3-dose series) 10/27 COVID-19 Vaccine ( season) 2024 Care Teams Optical Engineer Relationship Specialty Start Date End Date Unknown, Provider, PCP - General 09/11/15
--- OUTSIDE RECORDS SUMMARY | 2024-09-21 22:56 | XMS_ITS | Encounter Summary ---
Author Organization [facility] Address [address] [place] [address] Care Team Providers Care Night Supervisor Name Role Phone Unknown, Provider Primary Care Provider [phone] Encounter Details Date Type Department Care Team (Late st Contact Info) Description 09/01/2015 Historical Results Only [facility] Radiology Results [address] [place] [address] Jose Manuel Alvarado MD Social History Tobacco [...] CC: ? Transcribed Date/Time: 09/01/2015 (1142) ? Senior Construction Project Manager: ? Printed Date/Time: 05/11/2019 (1239) ? PAGE [...] Junito Herzog MD CC: Transcribed Date/Time: 09/01/2015 (1442) Senior Construction Project Manager: Printed Date/Time: 05/11/2019 (7678) PAGE 1 Signed Report Jose Manuel Alvarado [...] MD ? CC: ? Transcribed Date/Time: 09/01/2015 (3215) ? Senior Construction Project Manager: ? Printed Date/Time: 05/11/2019 (5374) ? PAGE 2 ? Signed Report ? [...] Ramon Morales MD CC: Transcribed Date/Time: 09/01/2015 (5963) Senior Construction Project Manager: Printed Date/Time: 05/11/2019 (1923) PAGE 2 Signed Report Jose Manuel Alvarado MD IMG CT ORDERABLES documented in this encounter Visit Diagnoses Not on filedocumented in this encounter Care Teams Night Supervisor Relationship Specialty Start Date End Date Unknown, Provider, PCP - General 09/11/15 documented as of this encounter
--- OUTSIDE RECORDS SUMMARY | 2024-09-21 22:56 | XMS_ITS | Encounter Summary ---
Author Organization [facility] Address [facility] [place] [address] Care Team Providers Care Contact Lens Assistant Name Role Phone Geeta Danie Bustos Primary Care Provider [phone] Encounter Details Date Type Department Care Team (Late st Contact Info) Description 09/15/2024 8:30 AM EDT Office Visit Hematology/Oncology at [address] [phone] Pia Cooper MD [facility] DR HEMATOLOGY [place] [address] Shayla Vuong APRN [facility] HEMATOLOGY [place] [address] 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 [...] Sign Reading Time Taken Comments Blood Pressure 130/81 09/15/2024 8:09 AM EDT Pulse 87 09/15/2024 8:09 AM EDT Temperature 36.3 ??C (97.3 ??F) 09/15/2024 8:09 AM ED T Respiratory Rate 16 09/15/2024 8:09 AM EDT Oxygen Saturation 99% 09/15/2024 8:09 AM EDT Inhaled Oxygen Concentration - - Weight 91.2 kg (201 lb) 09/15/2024 8:09 AM EDT Height 170.2 cm (5' 7.01) 09/15/2024 8:09 AM ED T Body Mass Index 31.47 09/15/2024 8:09 AM EDT documented in this encounter Progress Notes * Pia Cooper MD - 09/15/2024 8:30 AM EDT OUTPATIENT HEMATOLOGY/ ONCOLOGY CONSULTATION Patient [...] biopsy. He feels well. No constitutional symptoms. Stepped on a tack nail which is healing nicely. Recommend tetanus. No throat pain or swallowing difficulties. Relevant [...] - LVEF 56% Treatment Course Galo- R-CHP with pegfilgastrim initiated on 08/04/24 08/12/24 ADMIT [facility] for neutropenic fever. No identified source 08/25/24 C#2 Galo-R-CHP with pegfilgastrim 09/15/24 C#3 Galo-R-CHP with pegfilgastrim INTERIM HISTORY Brett returns to clinic today for consideration of C#3 Galo-R-CHP. He describes the following symptoms in response to treatment; Some nausea, using antiemetics. Denies Constipation. No bone or back pain to date. Taking Claritin Overall bit better than last cycle. Sleeping for about 7 hours but then waking up early No neuropathy No fevers, chills, recurrent infections or intercurrent [...] 30, 28, 20 8 grandchildren. Mostly in [place] Works at [employer] working on 4 [employer] and [employer] ETOH: none Smoking: none HIPPA Contact Permission: Jill Grissom Would patient benefit from social work consult: MEDICATIONS AND ALLERGIES- reviewed at this visit Medications 09/15/24 0813 Medication Sig Taking? diphenhydrAMINE-acetaminophen (TYLENOL PM) 25-500 [...] mg tablet One tablet every Mon, Wed Mayo Yes acyclovir (Zovirax) 400 mg tablet Take 1 tablet by mouth 2 times daily. Yes prochlorperazine (Compazine) 10 mg tablet Take 1 tablet by mouth every 6 hours as needed for Nausea. Take every 6 hrs as needed for nausea Yes predniSONE (Deltasone) 50 mg tablet Take [...] mg by mouth as needed for Pain. PAST MEDICAL HISTORY- reviewed Patient Active Problem List Diagnosis Code Seizure R56.9 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 of multiple regions C83.38 COMPREHENSIVE REVIEW OF SYSTEMS Besides what is mentioned in the HPI, all other systems are negative PHYSICAL EXAMINATION Vital signs: BP 130/81 (Patient Position: Sitting) Pulse 87 Temp 36.3 ??C (97.3 ??F) (Temporal) Resp 16 Ht 170.2 cm (5' 7.01) Wt 91.2 kg (201 lb) SpO2 99% BMI 31.47 kg/m?? Constitutional/General: well-developed, well-nourished, well-appearing 48 year old male in [facility] EENT: anicteric sclera, oropharnyx clear without hyperemia, exudative plaques or lesions. Neck/Thyroid: no palpable adenopathy. Well-healed biopsy site on right. Lungs: clear to auscultation bilaterally Heart: RRR, normal S1/S2, no murmurs/rubs/gallops Abdomen: soft, non-distended, non-tender to palpation, no masses or HSM. NABS LN: no palpable adenopathy Ext: no edema L foot tack wound healing nicely - closed, no sx/sx of infection Neurologic: moving all extremities spontaneously, grossly intact LABORATORY EVALUATION Recent Results (from the past 72 hour(s)) External Hematology Lab Results Result Value Ref Range WBC - External 5.63 Hemoglobin - External 12.2 Hematocrit - External 36.2 Platelets - External 307 Neutr ABS (ANC) - External 4.29 DIAGNOSTICS: Echo 06/24/24 at EF 56% PATHOLOGY: [...] for neutropenic fever despite pegfilgastrim. Here for consideration of C#3 Galo-R-CHP Seizure Disorder -seen by neurology at [facility] on 09/13/2024. 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 1 breakthrough seizure in the last 5 to 6 years. Not thought to require a surgical option given good control at this time. Note from neurologist of August 2024 reports both left temporal and now right frontal epileptiform findings. CT of the head was stable. Noted that he has a history of left temporal epilepsy and now also right frontal. Difficulty sleeping - has trouble going to sleep and wakes up early. Tylenol PM and can add melatonin at dinner time. Neuropathy - none to date. Plan: - RTC in 3 weeks for cycle # 4 Galo-R-CHP as scheduled - Given genny ANC, we will continue [...] he develop fever, chills, signs of infection. -Recommend tetanus shot for recent nail injury - General medical care and age appropriate health screenings remain under the direction of Danie Velazquez DO Cc: Danie Connor DO documented in this encounter Plan of Treatment Upcoming Encounters Date Type Department Care Team (Late st Contact Info) Description 10/06/2024 9:00 AM EST Office Visit Hematology/Oncology at [address] [phone] Shayla Vuong APRN [facility] DR HEMATOLOGY [place] [address] 10/06/2024 9:30 AM EST Scheduled View Only Hematology/Oncology at [address] [phone] Ekta Womack RN 10/06/2024 9:30 AM EST Infusion Hematology Oncology at [address] [phone] 10/07/2024 12:30 PM EST Infusion Hematology Oncology at [address] [address] 10/19/2024 10:00 AM EST Appointment [place] [phone] Pia Cooper MD [facility] DR HEMATOLOGY [place] [address] 10/19/2024 11:00 AM EST Appointment [place] [address] Pia Cooper MD [facility] HEMATOLOGY [place] [address] 2024 9:00 AM EST Office Visit Hematology/Oncology at [address] [phone] Pia Cooper MD [facility] HEMATOLOGY [place] [address] 2024 9:30 AM EST Scheduled View Only Hematology/Oncology at [address] [phone] Ekta Womack RN 2024 9:30 AM EST Infusion Hematology Oncology at [address] [phone] 11/17/2024 9:00 AM EST Office Visit Hematology/Oncology at [address] [phone] Shayla Vuong, CLEMENTE [facility] HEMATOLOGY [place] [address] 11/17/2024 9:30 AM EST Scheduled View Only Hematology/Oncology at [address] [phone] Ekta Womack RN 11/17/2024 9:30 AM EST Infusion Hematology Oncology at [address] [phone] documented as of this encounter Procedures Procedure Name Priority Date/Time Associated Diagnosis Comments EXTERNAL HEMATOLOGY LAB RESULTS Routine 09/15/2024 EXTERNAL CHEMISTRY LAB RESULTS Routine 09/15/2024 documented in this encounter Results * External Hematology Lab Results (09/15/2024) WBC - External 5.63 Hemoglobin - External 12.2 Hematocrit - External 36.2 Platelets - External 307 Neutr ABS (ANC) - External 4.29 09/15/2024 Historical Provider MD PEDRO JEFFRIES * External Chemistry Lab Results (09/15/2024) Creatinine - External 1.1 Potassium - External 3.8 AST (SGOT) - External 12 ALT (SGPT) - External 25 Total Bilirubin - External 0.43 LDH - External 214 09/15/2024 Historical Provider MD PEDRO JEFFRIES documented in this encounter Visit Diagnoses Diagnosis 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 of multiple regions High risk medication use Encounter for long-term (current) use of other medications documented in this encounter Care Teams Contact Lens Assistant Relationship Specialty Start Date End Date Danie Connor DO [address] [place] [address] PCP - General Family Medicine 06/04/24 documented as of this encounter
--- OUTSIDE RECORDS SUMMARY | 2024-09-21 22:57 | XMS_ITS | Encounter Summary ---
Author Organization [facility] [place] [address] Care Team Providers Care Life Tester [employer] Name Role Phone ConnorDanie willis Primary Care Provider [phone] Encounter Details Date Type Department Care Team (Late Contact Info) Description 08/04/2024 Orders Only Hematology/Oncology at [address] [phone] Shayla Vuong HOSPITALIST [facility] HEMATOLOGY AND ONCOLOGY [place], [place] [id number] 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 [...] Department Care Team (Late Contact Info) Description 10/06/2024 9:00 AM EST Office Visit Hematology/Oncology at [address] [phone] Shayla Vuong APRN [facility] [place] [address] 10/06/2024 9:30 AM EST Scheduled View Only Hematology/Oncology at [address] [phone] Ekta Womack, RN 10/06/2024 9:30 AM EST Infusion Hematology Oncology at [address] [phone] 10/07/2024 12:30 PM EST Infusion Hematology Oncology at [address] [phone] 10/19/2024 10:00 AM EST Appointment [place] [address] Pia Cooper MD [facility] [place] [address] 10/19/2024 11:00 AM EST App[place] [address] Pia Cooper MD [facility] [place] [address] 2024 9:00 AM EST Office Visit Hematology/Oncology at [address] [phone] Pia Cooper MD [facility] [place] [address] 2024 9:30 AM EST Scheduled View Only Hematology/Oncology at [address] [phone] Ekta Womack RN 2024 9:30 AM EST Infusion Hematology Oncology at [address] [phone] 11/17/2024 9:00 AM EST Office Visit Hematology/Oncology at [address] [phone] Shayla Vuong, CLEMENTE [facility] DR [place] [address] 11/17/2024 9:30 AM EST Scheduled View Only Hematology/Oncology at [address] [phone] Ekta Womack RN 11/17/2024 9:30 AM EST Infusion Hematology Oncology at [address] [phone] Scheduled Orders Name Type Priority Associated Diagnoses Orde r Schedule Miscellaneous Lab request Lab Routine 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 of multiple regions Every 3 weeks for 17 Occurrences starting 08/04/2024 until 08/04/2025 documented as of this encounter Visit Diagnoses Diagnosis 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 of multiple regions documented in this encounter Care Teams Life Tester [employer] Relationship Specialty Start Date End Date Danie Connor DO [address] [place] [phone] PCP - General Family Medicine 06/04/24 documented as of this encounter"
--- OUTSIDE RECORDS SUMMARY | 2024-09-21 22:57 | XMS_ITS | Encounter Summary ---
Author Organization [place] [address] Care Team Providers Care Pmp Project Manager Name Role Phone Danie Connor Primary Care Provider [phone] Encounter Details Date Type Department Care Team (Late Contact Info) Description 07/26/2024 Orders Only Hematology [place] [address] Shayla Vuong CASUALTY CLAIM ADJUSTER [facility] [place] [address] Lymphoma, unspecified body region, unspecified lymphoma type [...] 9:00 AM EST Office Visit Hematology/Oncology at [address] [phone] Shayla Vuong APRN [facility] [place] [address] 10/06/2024 9:30 AM EST Scheduled View Only Hematology/Oncology at [address] [phone] Ekta Womack RN 10/06/2024 9:30 AM EST Infusion Hematology Oncology at [address] [phone] 10/07/2024 12:30 PM EST Infusion Hematology Oncology at [address] [phone] 10/19/2024 10:00 AM EST Appointment [place] [address] Pia Cooper MD [facility] [place] [address] 10/19/2024 11:00 AM EST Appointment [place] [address] Pia Cooper MD [facility] [place] [address] 2024 9:00 AM EST Office Visit Hematology/Oncology at [address] [phone] Pia Cooper MD [facility] [place] [address] 2024 9:30 AM EST Scheduled View Only Hematology/Oncology at [address] [phone] Ekta Womack RN 2024 9:30 AM EST Infusion Hematology Oncology at [address] [phone] 11/17/2024 9:00 AM EST Office Visit Hematology/Oncology at [address] [phone] Shayla Vuong, CASUALTY CLAIM ADJUSTER [facility] [place] [address] 11/17/2024 9:30 AM EST Scheduled View Only Hematology/Oncology at [address] [phone] Ekta Womack RN 11/17/2024 9:30 AM EST Infusion Hematology Oncology at [address] [phone] Scheduled Orders Name Type Priority Associated Diagnoses [...] type documented in this encounter Care Teams Pmp Project Manager Relationship Specialty Start Date End Date Danie Connor DO [address] [place] [address] PCP - General Family Medicine 06/04/24 documented as of this encounter
--- OUTSIDE RECORDS SUMMARY | 2024-09-21 22:57 | XMS_ITS | Encounter Summary ---
Author Organization [facility] [place] [address] Care Team Providers Care Bill Hiker Name Role Phone Danie Connor DO Primary Care Provider [phone] Encounter Details Date Type Department Care Team (Late st Contact Info) Description 08/04/2024 Notes Only Hematology/Oncology at [address] [phone] Aurea Galindo MSW OFFICE OF CARE MANAGEMENT [...] Progress Notes * Aurea Galindo MSW - 08/04/2024 9:49 AM EDT Reason for Referral: Brief assessment of social and emotional needs. Met with Brett his s/o Jill and his sister Ana during his first infusion visit today to introduce myself and role of social studies department chair to assess/address barriers to getting to and [...] any issues with transportation. 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 He has completed [employer] paperworkand opened a short term disability claim [...] Advance care planning Plan: Informed Brett of AERONAUTICS COMMISSION DIRECTOR availability and contact information. Will follow to assess/address psychosocial needs. FLORENTIN Shah, THREAD CLIPPER, OSW-C Field Service Technician [facility] documented in this encounter Plan of Treatment Upcoming Encounters Date Type Department Care Team (Late st Contact Info) Description 10/06/2024 9:00 AM EST Office Visit Hematology/Oncology at [address] [phone] Shayla Vuong APRN [facility] DR [place] [address] 10/06/2024 9:30 AM EST Scheduled View Only Hematology/Oncology at [address] [phone] Ekta Womack RN 10/06/2024 9:30 AM EST Infusion Hematology Oncology at [address] [phone] 10/07/2024 12:30 PM EST Infusion Hematology Oncology at [address] [phone] 10/19/2024 10:00 AM EST Appointment [place] [address] Pia Cooper MD [facility] [place] [address] 10/19/2024 11:00 AM EST Appointment [place] [address] Pia Cooper MD [facility] [address] [place] [address] 2024 9:00 AM EST Office Visit Hematology/Oncology at [address] [phone] Pia Cooper MD [facility] [place] [address] 2024 9:30 AM EST Scheduled View Only Hematology/Oncology at [address] [phone] Ekta Womack RN 2024 9:30 AM EST Infusion Hematology Oncology at [address] [phone] 11/17/2024 9:00 AM EST Office Visit Hematology/Oncology at [address] [phone] Shayla Vuong APRN [facility] [place] [address] 11/17/2024 9:30 AM EST Scheduled View Only Hematology/Oncology at [address] [phone] Ekta Womack RN 11/17/2024 9:30 AM EST Infusion Hematology Oncology at [address] [phone] documented as of this encounter Visit Diagnoses Not on filedocumented in this encounter Care Teams Bill Hiker Relationship Specialty Start Date End Date Danie Connor DO [address] [place] [phone] PCP - General Family Medicine 06/04/24 documented as of this encounter
--- OUTSIDE RECORDS SUMMARY | 2024-09-21 22:57 | XMS_ITS | Encounter Summary ---
Author Organization [facility] [place] [address] Care Team Providers Care Tinsel Machine Operator Name Role Phone ConnorDanie willis Primary Care Provider [phone] Encounter Details Date Type Department Care Team ([facility] Contact Info) Description 07/06/2024 Orders Only Hematology [place] [address] Shayla Vuong, BENCH PRECISION ASSEMBLER [facility] DR [place] [address] Encounter for monitoring cardiotoxic drug therapy; Encounter for echocardiogram before initiation of chemotherapy; 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 of multiple regions Social History Tobacco Use Types Packs/Day Years Used Date Smoking Tobacco: Never Smokeless Tobacco: Never Alcohol Use Standard Drinks/Week Comments No 0 (1 standard drink = 0.6 oz pur e alcohol) [facility] Inpatient Questions Answer Date Recorded Prevent [...] Upcoming Encounters Date Type Department Care Team ([facility] Contact Info) Description 10/06/2024 9:00 AM EST Office Visit Hematology/Oncology at [address] [phone] Shayla Vuong APRN [facility] [place] [address] 10/06/2024 9:30 AM EST Scheduled View Only Hematology/Oncology at [address] [phone] Ekta Womack, RN 10/06/2024 9:30 AM EST Infusion Hematology Oncology at [address] [phone] 10/07/2024 12:30 PM EST Infusion Hematology Oncology at [address] [phone] 10/19/2024 10:00 AM EST Appointment [place] [address] Pia Cooper MD [facility] DR [place] [address] 10/19/2024 11:00 AM EST Appointment [place] [address] Pia Cooper MD [facility] [place] [address] 2024 9:00 AM EST Office Visit Hematology/Oncology at [address] [phone] Pia Cooper MD [facility] [place] [address] 2024 9:30 AM EST Scheduled View Only Hematology/Oncology at [address] [phone] Ekta Womack, RN 2024 9:30 AM EST Infusion Hematology Oncology at [address] [phone] 11/17/2024 9:00 AM EST Office Visit Hematology/Oncology at [address] [phone] Shayla Vuong, CLEMENTE [facility] [address] [place] [address] 11/17/2024 9:30 AM EST Scheduled View Only Hematology/Oncology at [address] [phone] Ekta Womack RN 11/17/2024 9:30 AM EST Infusion Hematology Oncology at [address] [phone] documented as of this encounter Visit Diagnoses Diagnosis Encounter for monitoring cardiotoxic drug therapy Encounter for therapeutic drug monitoring Encounter for echocardiogram before initiation of chemotherapy 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 of multiple regions documented in this encounter Care Teams Tinsel Machine Operator Relationship Specialty Start Date End Date Danie Connor DO [address] [place] [address] PCP - General Family Medicine 06/04/24 documented as of this encounter
--- OUTSIDE RECORDS SUMMARY | 2024-09-21 22:57 | XMS_ITS | Encounter Summary ---
Author Organization [facility] [place] [address] Care Team Providers Care Education Program Manager Name Role Phone Danie Connor DO Primary Care Provider [phone] Encounter Details Date Type Department Care Team (Late st Contact Info) Description 08/25/2024 Notes Only Hematology/Oncology at [address] [phone] Aurea Galindo MSW OFFICE OF CARE MANAGEMENT [...] Progress Notes * Aurea Galindo MSW - 08/25/2024 9:23 AM EDT Follow up with Brett and his sister during his infusion visit today. Brett indicated he was hospitalized after his last treatment for an infection. He has not been able to work and has realized his is not going to be able to during his treatment.. He is expecting his Disability benefit through work to be finalized so he will have some income. They need to see how Brett does after his treatments in regards to returning to work. Brett and his sister did not identify any specific needs at this time. Offered support. Will continue to follow for support and resources. Brief assessment Supportive Counseling documented in this encounter Plan of Treatment Upcoming Encounters Date Type Department Care Team (Late st Contact Info) Description 10/06/2024 9:00 AM EST Office Visit Hematology/Oncology at [address] [phone] Shayla Vuong APRN [facility] DR HEMATOLOGY [place] [address] 10/06/2024 9:30 AM EST Scheduled View Only Hematology/Oncology at [address] [phone] Ekta Womack, RN 10/06/2024 9:30 AM EST Infusion Hematology Oncology at [address] [phone] 10/07/2024 12:30 PM EST Infusion Hematology Oncology at [address] [phone] 10/19/2024 10:00 AM EST Appointment [place] [address] Pia Cooper MD [facility] HEMATOLOGY [place] [address] 10/19/2024 11:00 AM EST Appointment [place] [address] Pia Cooper MD [facility] [place] [address] 2024 9:00 AM EST Office Visit Hematology/Oncology at [address] [phone] Pia Cooper MD [facility] DR HEMATOLOGY [place] [address] 2024 9:30 AM EST Scheduled View Only Hematology/Oncology at [address] [phone] Ekta Womack, RN 2024 9:30 AM EST Infusion Hematology Oncology at [address] [phone] 11/17/2024 9:00 AM EST Office Visit Hematology/Oncology at [address] [phone] Shayla Vuong APRN [facility] HEMATOLOGY [place] [address] 11/17/2024 9:30 AM EST Scheduled View Only Hematology/Oncology at [address] [phone] Ekta Womack, RN 11/17/2024 9:30 AM EST Infusion Hematology Oncology at [address] [phone] documented as of this encounter Visit Diagnoses Not on filedocumented in this encounter Care Teams Education Program Manager Relationship Specialty Start Date End Date Danie Connor DO [address] [place] [phone] PCP - General Family Medicine 06/04/24 documented as of this encounter
--- OUTSIDE RECORDS SUMMARY | 2024-09-21 22:57 | XMS_ITS | Encounter Summary ---
[place] [address] Care Team Providers Care Collections Manager Name Role Phone Danie Connor DO Primary Care Provider [phone] Reason for Referral * Diagnostic Test (STAT) - Closed Specialty Diagnoses / Procedures Referred By Contac t Referred To Contact Radiology Diagnoses 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 of multiple regions Procedures IR Mediport Placement Brett Herr MD [facility] DR HEMATOLOGY [place] [address] [facility] [address] Referral ID Status Reason Start Date Expiration Date V isits Requested Visits Authorized [id number] Closed Specialty Service Requested 07/23/2024 01/23/2026 1 1 Reason for Visit * Diagnostic Test (STAT) - Closed Specialty Diagnoses / Procedures Referred By Contac t Referred To Contact Radiology Diagnoses 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 of multiple regions Procedures IR [facility] Placement Brett Herr MD [facility] DR HEMATOLOGY [place] [address] [facility] [place] [address] Referral ID Status Reason Start Date Expiration Date V isits Requested Visits Authorized [id number] Closed Specialty Service Requested 07/23/2024 01/23/2026 1 1 Encounter Details Date Type Department Care Team (Latest Contact Info) Description 07/27/2024 6:46 AM EDT - 07/27/2024 11:59 PM EDT Hospital [place] [address] Brett Herr MD [facility] DR HEMATOLOGY [place] [address] 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 [...] provided with an ID card stating the head of measurement & insights and type of port you have. Please carry this with you in a safe place. Bandage: There is a sterile dressing over the port site consisting of small gauze with a clear dressing (Tegaderm or [id number] ). This dressing should be left in place for 48 hours. If the clear dressing becomes loose you should place tape over the edges to secure it in place. Note: If you have steri-strips beneath your dressing, simply allow them to fall off. Do not peel them off. There may be [place]-joy (skin glue) also, allow this to flake [...] is during regular office hours, please call [phone]. If it is after regular office hours, or on weekends or holidays, please call [phone] and ask to speak to the Tank Furnace Operator electroneurodiagnostic technologist for Interventional Radiology. XXX You have received [...] 2 times daily. 180 tablet 3 07/23/2024 prochlorperazine (Compazine) 10 mg tablet Take 1 [...] 2 times daily. 60 tablet 5 02/21/2021 allopurinoL (Zyloprim) 300 mg tablet Take 1 tablet by mouth daily for 30 days. Take for the first month of chemotherapy by mouth to prevent tumor lysis 30 tablet 07/23/2024 08/22/2024 documented as of this encounter Progress Notes * Dolores Nielsen RN - 07/27/2024 11:59 PM EDT Interventional and Vascular Radiology Post-Procedure Call Name: Brett Campos Age: 48 y.o. Sex: Male Date of : 1975 (home) Telephone Information: PCP: Danie Connor DO [phone] Date/Time of call: July 28, 2024/9:00 AM Procedure: Mediport Placement Procedural Provider: ANNELIESE Skinner Message left on answering machine?: Yes * Dia Lizarraga RN - 07/27/2024 8:20 AM EDT [facility] DATABASE Name: Brett Campos Date of : 1975 AGE: 48 y.o. Address: [address] [place] [phone] (home) Mobile: Telephone Information: Referring Provider: Brett Herr REASON FOR VISIT: Order Questions Answers Where will study be performed? [facility] Radiology [120] To be scheduled Ordering [...] Radiology eDH order queue. Presenting Diagnosis/ Complaint: rBett Campos is a 48 y.o. male with [...] (WRVU 3.79) performed by Dorinda Pastrana MD [facility] MAIN OR Medications: Current Outpatient Medications [...] 9:00 AM EST Office Visit Hematology/Oncology at [address] [phone] Shayla Vuong APRN [facility] HEMATOLOGY [place] [address] 10/06/2024 9:30 AM EST Scheduled View Only Hematology/Oncology at [address] [phone] Ekta Womack RN 10/06/2024 9:30 AM EST Infusion Hematology Oncology at [address] [phone] 10/07/2024 12:30 PM EST Infusion Hematology Oncology at [address] [phone] 10/19/2024 10:00 AM EST Appointment [place] [address] Pia Cooper MD [facility] HEMATOLOGY AND [place] [address] 10/19/2024 11:00 AM EST Appointment [place] [address] Pia Cooper MD [facility] HEMATOLOGY [place] [address] 2024 9:00 AM EST Office Visit Hematology/Oncology at [address] [phone] Pia Cooper MD [facility] HEMATOLOGY [place] [address] 2024 9:30 AM EST Scheduled View Only Hematology/Oncology at [address] [phone] Ekta Womack RN 2024 9:30 AM EST Infusion Hematology Oncology at [address] [phone] 11/17/2024 9:00 AM EST Office Visit Hematology/Oncology at [address] [phone] Shayla Vuong APRN [facility] HEMATOLOGY [place] [address] 11/17/2024 9:30 AM EST Scheduled View Only Hematology/Oncology at [address] [phone] Ekta Womack RN 11/17/2024 9:30 AM EST Infusion Hematology Oncology at [address] [phone] documented as of this encounter Procedures Procedure [...] implant Indication: Diffuse large B-cell lymphoma, durable mcc central venous access for chemotherapy Procedure summary: [...] junction. The port may be used immediately. embossing unit operator: Gutierrez Skinner PA-C. Present during the [...] mLs documented in this encounter Care Teams Collections Manager Relationship Specialty Start Date End Date Danie Connor DO [address] [place] [address] PCP - General Family Medicine 06/04/24 documented as of this encounter
--- OUTSIDE RECORDS SUMMARY | 2024-09-21 22:57 | XMS_ITS | Encounter Summary ---
Author Organization [facility] [place] [address] Care Team Providers Care Paster Operator Name Role Phone Danie Connor Juli Primary Care Provider [phone] Encounter Details Date Type Department Care Team (Late st Contact Info) Description 08/04/2024 Notes Only Hematology/Oncology at [address] [phone] Ekta Womack RN Social History Tobacco Use [...] 9:22 AM EDT Clinical Research Nurse Note [place], [place] Date: 08/04/24 Documentation of Informed Consent to Participate in Clinical Trial and lab kit draw Study Number:[id number] Description:Immune profiling for cancer Immunotherapy response The study investigates how the profiles of the immune cells before and after treatment with immunotherapeutic medications used for cancer treatment might impact the response to the treatment. Patient was seen in private exam room and was offered the opportunity to participate in the study [id number] The protocol was reviewed with patient including [...] form was sent to Milton GARCIA via medical office assistant instructor and also Emailed to him. consent was obtained prior to any study procedures being conducted Patient was provided a copy of [employer] research nurse business card and instructed to [...] Miscellaneous lab kit draw for study # [id number] [facility] [place] after obtaining informed consent and prior to infusion today. Date: 08/04/24 Time: 0900 [ ] misc lab kit blood drawn from venipuncture performed by marketing regional consultant [ ] medi port by marketing regional consultant. [ x ] medi port was accessed by [facility] for SOC labs earlier today. Misc lab kit blood drawn from accessed port by harvinder Yip RN Specimens sent to : [x ] [address] floor pathology lab in cooler via medical office assistant instructor by this author [ ] Study ,via Fed ex per protocol requirements documented in this encounter Plan of Treatment Upcoming Encounters Date Type Department Care Team (Late st Contact Info) Description 10/06/2024 9:00 AM EST Office Visit Hematology/Oncology at [address] [phone] Shayla Vuong [address]N [facility] DR [place] [address] 10/06/2024 9:30 AM EST Scheduled View Only Hematology/Oncology at [address] [phone] Ekta Womack RN 10/06/2024 9:30 AM EST Infusion Hematology Oncology at [address] [phone] 10/07/2024 12:30 PM EST Infusion Hematology Oncology at [address] [address] 10/19/2024 10:00 AM EST Appointment [place] [address] Pia Cooper MD [facility] [place] [address] 10/19/2024 11:00 AM EST Appointment [place] [address] Pia Cooper MD [facility] [place] [address] 2024 9:00 AM EST Office Visit Hematology/Oncology at [address] [phone] [address]ia Cooper MD [facility] [place] [address] 2024 9:30 AM EST Scheduled View Only Hematology/Oncology at [address] [phone] Ekta Womack, RN 2024 9:30 AM EST Infusion Hematology Oncology at [address] [phone] 11/17/2024 9:00 AM EST Office Visit Hematology/Oncology at [address] [phone] Shayla Vuong, [facility] DR HEMATOLOGY AND ONCOLOGY [place] [phone] 11/17/2024 9:30 AM EST Scheduled View Only Hematology/Oncology at [address] [phone] Ekta Womack, RN 11/17/2024 9:30 AM EST Infusion Hematology Oncology at [address] [phone] documented as of this encounter Visit Diagnoses Not on filedocumented in this encounter Care Teams Paster Operator Relationship Specialty Start Date End Date Danie Connor DO [address] [place] [phone] PCP - General Family Medicine 06/04/24 documented as of this encounter
--- OUTSIDE RECORDS SUMMARY | 2024-09-21 22:57 | XMS_ITS | Encounter Summary ---
Author Organization [facility] [place] [address] Care Team Providers Care Furnace Maintenance Name Role Phone Danie Connor DO Primary Care Provider [phone] Encounter Details Date Type Department Care Team (Late st Contact Info) Description 08/11/2024 Telephone Hematology [place] [phone] Michelle Cast MD [facility] DR HEMATOLOGY/[place] [address] Social History Tobacco Use Types Packs/Day Years [...] Encounter - Michelle Cast MD - 08/11/2024 10:31 PM EDT BRIEF CONVERSATION WITH OSH PROVIDER: Referring Location: [facility] Referring Provider: Shawanda Christensen APRN Dale Beth is a 48yo M with DLBCL. He follows with Dr. Nemesio MD and Shayla Vuong APRN in the outpatient setting. He is currently on Galo-R-CHP. His last infusion was on 08/05/24. Per chart review he had seen Shayla Vuong APRN earlier in the day. Bloodwork was remarkable for neutropenia. Hematology was paged earlier in the evening by the patient's caregiver as the patient was observed to have a fever of 101.9F and chills. I recommended he present to the local ED. Hematology was paged by OSH provider requesting next steps. CXR unremarkable, COVID and rapid flu negative. Blood cultures obtained. RECOMMENDATIONS: -start on cefepime for now, while infectious workup is pending -patient received peg-filgrastim earlier in the day, if hospitalized, can consider providing filgrastim until ANC >1000 -if patient remains afebrile, can discharge on 7day course of Levaquin Thank you for involving me in the care of the patient. Please call with any questions or concerns. Michelle Cast MD [facility] [place]ematology/Oncology Fellow [facility] [place] Pager#[phone] documented in this encounter Plan of Treatment Upcoming Encounters Date Type Department Care Team (Late st Contact Info) Description 10/06/2024 9:00 AM EST Office Visit Hematology/Oncology at [address] [phone] Shayla Vuong APRN [facility] DR HEMATOLOGY [place] [address] 10/06/2024 9:30 AM EST Scheduled View Only Hematology/Oncology at [address] [phone] Ekta Womack RN 10/06/2024 9:30 AM EST Infusion Hematology Oncology at [address] [phone] 10/07/2024 12:30 PM EST Infusion Hematology Oncology at [address] [phone] 10/19/2024 10:00 AM EST Appointment [place] [address] Pia Cooper MD [facility] DR HEMATOLOGY [place] [address] 10/19/2024 11:00 AM EST Appointment [place] [address] Pia Cooper MD [facility] DR HEMATOLOG[place] [address] 2024 9:00 AM EST Office Visit Hematology/Oncology at [address] [phone] Pia Cooper MD [facility] HEMATOLOGY [place] [address] 2024 9:30 AM EST Scheduled View Only Hematology/Oncology at [address] [phone] Ekta Womack RN 2024 9:30 AM EST Infusion Hematology Oncology at [address] [phone] 11/17/2024 9:00 AM EST Office Visit Hematology/Oncology at [address] [phone] Shayla Vuong APRN [facility] HEMATOLOGY [place] [address] 11/17/2024 9:30 AM EST Scheduled View Only Hematology/Oncology at [address] [phone] Ekta Womack RN 11/17/2024 9:30 AM EST Infusion Hematology Oncology at [address] [phone] documented as of this encounter Visit Diagnoses Not on filedocumented in this encounter Care Teams Furnace Maintenance Relationship Specialty Start Date End Date Danie Connor DO [address] [place] [address] PCP - General Family Medicine 06/04/24 documented as of this encounter
--- OUTSIDE RECORDS SUMMARY | 2024-09-21 22:57 | XMS_ITS | Encounter Summary ---
Author Organization [facility] [place] [address] Care Team Providers Care Landscape Photographer Name Role Phone Geeta Danie Bustos Primary Care Provider [phone] Encounter Details Date Type Department Care Team (Late st Contact Info) Description 08/04/2024 8:00 AM EDT Office Visit Hematology/Oncology at [address] [phone] Shayla Vuong APRN [facility] DR HEMATOLOGY [place] [address] Need for pneumocystis prophylaxis; Diffuse large B-cell [...] documented in this encounter Progress Notes * Dyer, Shayla M, TRANSITIONS MANAGER - 08/04/2024 8:00 AM EDT OUTPATIENT HEMATOLOGY/ [...] Herr. His care is being transferred to [facility] for convenience. Since our last visit, he [...] reviewed with significant changes noted Works at [employer] MEDICATIONS AND ALLERGIES- reviewed at this visit Medications 08/04/24 5892 Medication Sig Taking? Vimpat 200 mg Tablet [...] the direction of DO Shayla Main, MSN, TRANSITIONS MANAGER Nurse Practitioner Section of Hematology Cc: Danie Connor DO * Shayla Vuong APRN - 08/04/2024 [...] of infection, cataracts and osteoporosis. Medications: please knot picker cloth the following prescriptions before you start treatment [...] further questions or concerns. Shayla Vuong, MSN, TRANSITIONS MANAGER Nurse Practitioner Section of Hematology/Oncology documented in this encounter Plan of Treatment Upcoming Encounters Date Type Department Care Team (Late st Contact Info) Description 10/06/2024 9:00 AM EST Office Visit Hematology/Oncology at [address] [phone] Shayla Vuong APRN [facility] DR HEMATOLOGY AND ONCOLOGY [place], [place] [phone] 10/06/2024 9:30 AM EST Scheduled View Only Hematology/Oncology at [address] [phone] Ekta Womack RN 10/06/2024 9:30 AM EST Infusion Hematology Oncology at [address] [phone] 10/07/2024 12:30 PM EST Infusion Hematology Oncology at [address] [phone] 10/19/2024 10:00 AM EST Appointment [place] [address] Pia Cooper MD [facility] DR HEMATOLOGY [place] [address] 10/19/2024 11:00 AM EST Appointment [place] [address] Pia Cooper MD [facility] HEMATOLOGY [place] [address] 2024 9:00 AM EST Office Visit Hematology/Oncology at [address] [phone] Pia Cooper MD [facility] HEMATOLOGY [place] [address] 2024 9:30 AM EST Scheduled View Only Hematology/Oncology at [address] [phone] Ekta Womack, RN 2024 9:30 AM EST Infusion Hematology Oncology at [address] [phone] 11/17/2024 9:00 AM EST Office Visit Hematology/Oncology at [address] [phone] Shayla Vuong APRN [facility] DR HEMATOLOGY [place] [address] 11/17/2024 9:30 AM EST Scheduled View Only Hematology/Oncology at [address] [phone] Ekta Womack RN 11/17/2024 9:30 AM EST Infusion Hematology Oncology at [address] [phone] Scheduled Orders Name Type Priority Associated Diagnoses [...] medications documented in this encounter Care Teams Landscape Photographer Relationship Specialty Start Date End Date Danie Connor DO [address] [place] [address] PCP - General Family Medicine 06/04/24 documented as of this encounter
--- OUTSIDE RECORDS SUMMARY | 2024-09-21 22:57 | XMS_ITS | Encounter Summary ---
[place] [address] Care Team Providers Care Electrical Instrument Repairer Name Role Phone Geeta Danie Bustos Primary Care Provider [phone] Encounter Details Date Type Department Care Team (Late st Contact Info) Description 08/11/2024 Telephone Hematology [place] [phone] Michelle Cast MD [facility] DR HEMATOLOGY/[place] [address] Social History Tobacco Use Types Packs/Day Years Used Date Smoking Tobacco: Never Smokeless Tobacco: Never Alcohol Use Standard Drinks/Week Comments No 0 (1 standard drink = 0.6 oz pur e alcohol) [facility] Inpatient Questions Answer Date Recorded [...] CC-Dr. Nemesio MD and CLEMENTE Law MD [facility] Hematology/Oncology Fellow [facility] [place] Pager#[phone] documented in this encounter Plan of Treatment Upcoming Encounters Date Type Department Care Team (Late st Contact Info) Description 10/06/2024 9:00 AM EST Office Visit Hematology/Oncology at [address] [phone] Shayla Vuong APRN [facility] HEMATOLOGY [place] [address] 10/06/2024 9:30 AM EST Scheduled View Only Hematology/Oncology at [address] [phone] Ekta Womack RN 10/06/2024 9:30 AM EST Infusion Hematology Oncology at [address] [phone] 10/07/2024 12:30 PM EST Infusion Hematology Oncology at [address] [address] 10/19/2024 10:00 AM EST Appointment [place] [address] Pia Cooper MD [facility] HEMATOLOGY [place] [address] 10/19/2024 11:00 AM EST Appointment [place] [address] Pia Cooper MD [facility] HEMATOLOGY [place] [address] 2024 9:00 AM EST Office Visit Hematology/Oncology at [address] [phone] Pia Cooper MD [facility] HEMATOLOGY [place] [address] 2024 9:30 AM EST Scheduled View Only Hematology/Oncology at [address] [phone] 45 Ekta Womack, RN 2024 9:30 AM EST Infusion Hematology Oncology at [address] [address] 11/17/2024 9:00 AM EST Office Visit Hematology/Oncology at [address] [phone] Shayla Vuong STATEMENT CLERKS SUPERVISOR [facility] DR HEMATOLOGY [place] [address] 11/17/2024 9:30 AM EST Scheduled View Only Hematology/Oncology at [address] [phone] Ekta Womack, RN 11/17/2024 9:30 AM EST Infusion Hematology Oncology at [address] [phone] documented as of this encounter Visit Diagnoses Not on filedocumented in this encounter Care Teams Electrical Instrument Repairer Relationship Specialty Start Date End Date Danie Connor DO [address] [place] [address] PCP - General Family Medicine 06/04/24 documented as of this encounter
--- OUTSIDE RECORDS SUMMARY | 2024-09-21 22:57 | XMS_ITS | Encounter Summary ---
Author Organization [facility] Address [facility] [place] [address] Care Team Providers Care Drafter Cartographic Name Role Phone Danie Connor DO Primary Care Provider [phone] Reason for Visit * Reason Comments Chemotherapy Cycle 2 Day 1 Rituxa n (2nd time rate), Polatuzumab, Doxorubicin, Cyclophosphamide * Treatment/Therapy Plan Authorization (Routine) - Authorized [...] 10MG, INJECTION (ADRIAMYCIN) TC CYCLOPHOSPHAMIDE, 100MG (CYTOXAN) [id number] (POLATUZUMAB VEDOTIN-PIIQ) Brett Herr MD [facility] [place] [address] Stj Hem Onc Infusion [address] [place] [phone] Referral ID Status Reason Start Date Expiration Date V isits Requested Visits Authorized [id number] Authorized 07/23/2024 07/23/2025 1 104 Encounter Details Date Type Department Care Team (Late st Contact Info) Description 08/25/2024 8:30 AM EDT Infusion Hematology Oncology at [address] [phone] 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 [...] Progress Notes * Corie Miranda RN - 08/25/2024 8:30 AM EDT Images from the original note were not included. INFUSION THERAPY ADMINISTRATION NOTES DIAGNOSIS: DLBCL CYCLE #:2 Day 1 REASON FOR VISIT: Rituxan (2nd time rate), Polatuzumab, Doxorubicin, Cyclophosphamide SUBJECTIVE Brett offers no complaints. He was seen in clinic prior to infusion. OBJECTIVE LAB DATA: IV ACCESS: Mediport accessed at [facility] for labs this morning. Blood return present and flushes easily. Pre administration: Chemotherapy orders independently verified for drug name, route, and dosage per patient's height, weight and BSA by Corie Miranda, [facility] onsite. REACTIONS (DESCRIPTION, TIME, INTERVENTION AND EFFECTIVENESS) none ASSESSMENT Brett was awake, alert and tolerated treatment well. PLAN Return to clinic tomorrow for udenyca. documented in this encounter Plan of Treatment Upcoming Encounters Date Type Department Care Team (Late st Contact Info) Description 10/06/2024 9:00 AM EST Office Visit Hematology/Oncology at [address] [phone] Shayla Vuong APRN [facility] [place] [address] 10/06/2024 9:30 AM EST Scheduled View Only Hematology/Oncology at [address] [phone] Ekta Womack RN 10/06/2024 9:30 AM EST Infusion Hematology Oncology at [address] [phone] 10/07/2024 12:30 PM EST Infusion Hematology Oncology at [address] [address] 10/19/2024 10:00 AM EST Appointment [place] [address] Pia Cooper MD [facility] [place] [address] 10/19/2024 11:00 AM EST Appointment [place] [address] Pia Cooper MD [facility] [place] [address] 2024 9:00 AM EST Office Visit Hematology/Oncology at [address] [phone] Pia Cooper MD [facility] [place] [address] 2024 9:30 AM EST Scheduled View Only Hematology/Oncology at [address] [phone] Ekta Womack RN 2024 9:30 AM EST Infusion Hematology Oncology at [address] [address] 11/17/2024 9:00 AM EST Office Visit Hematology/Oncology at [address] [phone] Shayla Vuong APRN [facility] HEMATOLOGY AND [place] [address] 11/17/2024 9:30 AM EST Scheduled View Only Hematology/Oncology at [address] [phone] Ekta Womack RN 11/17/2024 9:30 AM EST Infusion Hematology Oncology at [address] [phone] documented as of this encounter Visit Diagnoses Diagnosis 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 of multiple regions documented in this encounter Administered Medications Inactive Administered Medications - up to 3 most recent administrations Medication Order MAR Action Action Date Dose Rate Site acetaminophen (Tylenol) tablet 650 mg 650 mg, Oral, ONCE, 1 dose, On Fri08/25/24 at 0900, Administer prior to riTUXimab., Routine Given 08/25/2024 8:51 AM EDT 650 mg aprepitant (Cinvanti) (7.2 mg/mL) injection emulsion 130 mg 130 mg, Intravenous, Administer over 2 Minutes, ONCE, 1 dose, On Fri08/25/24 at 0900, Alternative administration of IV push over 2 minutes is a recommendation from the signalman. Administer prior to chemotherapy., Routine Given 08/25/2024 8:57 AM EDT 130 mg cycloPHOSphamide (Cytoxan) 1,500 mg in sodium chloride 0.9% 325 mL infusion 1,500 mg (rounded from 1,545 mg = 750 mg/m2/dose ? 2.06 m2 Treatment Plan BSA from Recorded weight), Intravenous, ONCE, 1 dose, On Fri08/25/24 at 1000, Administer over 30 Minutes, Warning Vesicant/Irritant Medication New Bag 08/25/2024 1:41 PM EDT 1,500 mg 650 mL/hr diphenhydrAMINE (Benadryl) capsule 25 mg 25 mg, Oral, ONCE, 1 dose, On Fri08/25/24 at 0900, Administer prior to riTUXimab, Routine Given 08/25/2024 8:51 AM EDT 25 mg DOXOrubicin (Adriamycin) injection 103 mg 103 mg (50 mg/m2/dose ? 2.06 m2 Treatment Plan BSA from Recorded weight), Intravenous, ONCE, 1 dose, On Fri08/25/24 at 1000, Warning Vesicant/Irritant Medication Administer each syringe over a minimum of 3 minutes. Given 08/25/2024 1:32 PM EDT 103 mg famotidine (Pepcid) (10 mg/mL) injection 20 mg 20 mg, Intravenous, ONCE, 1 dose, On Fri08/25/24 at 0930 Given 08/25/2024 8:59 AM EDT 20 mg LORazepam (Ativan) tablet 0.5 mg 0.5 mg, Oral, ONCE, 1 dose, On Fri08/25/24 at 0900, Routine Given 08/25/2024 8:51 AM EDT 0.5 mg palonosetron (Aloxi) (0.05 mg/mL) injection 0.25 mg 0.25 mg, Intravenous, ONCE, 1 dose, On Fri08/25/24 at 0900, Administer over 30 seconds., Routine Given 08/25/2024 8:58 AM EDT 0.25 mg polatuzumab vedotin-piiq (Polivy) 150 mg in sodium chloride 0.9% 107.5 mL infusion 150 mg (rounded from 161.64 mg = 1.8 mg/kg/dose ? 89.8 kg Treatment plan Recorded weight), Intravenous, ONCE, 1 dose, On Fri08/25/24 at 1000, Administer over 30 Minutes, Monitor [...] given as an outpatient? Yes New Bag 08/25/2024 12:21 PM EDT 150 mg 215 mL/hr predniSONE (Deltasone) tablet 100 mg 100 mg, Oral, ONCE, 1 dose, On Fri08/25/24 at 0930, Give first dose prior to riTUXimab, Routine Given 08/25/2024 8:51 AM EDT 100 mg riTUXimab-abbs (Truxima) 700 mg in sodium chloride 0.9% 350 mL infusion 700 mg (rounded from 772.5 mg = 375 mg/m2/dose ? 2.06 m2 Treatment Plan BSA from Recorded weight), Intravenous, ONCE, 1 dose, On Fri08/25/24 at 0930, Administer Per Protocol, Patient is a candidate for rapid infusion riTUXimab? No, Is this product being used for treatment of malignant indication? Yes, Rituxan/Truxima are NON-PREFERRED brands. Please indicate why this product is specifically required (vs. preferred Ruxience brand): Other reason (comment required), Comments: Patient's insurance requires Truxima biosimilar New Bag 08/25/2024 9:40 AM EDT 700 mg sodium chloride 0.9 % (flush) (BD PosiFlush Normal Saline 0.9) flush 5-20 mL 5-20 mL, Intravenous, EVERY 1 MIN PRN, Starting on Fri08/25/24 at 0837, Until Fri08/25/24 at 1711, Line Care, Flush pertains to all indwelling lines. Flush per protocol found in the job aid using the link provided on this medication record. Refer to Intravenous (IV) Job Aid: Adult Flushing & Catheter Care (4268) job aid for additional information regarding guidelines and administration., Routine Given 08/25/2024 2:16 PM EDT 20 mLs sodium chloride 0.9% infusion 75 mL/hr, Intravenous, CONTINUOUS, Starting on Fri08/25/24 at 0900, Until Fri08/25/24 at 1711 New Bag 08/25/2024 9:00 AM EDT 75 mL/hr 75 mL/hr documented in this encounter Care Teams Drafter Cartographic Relationship Specialty Start Date End Date Danie Connor DO [address] [place] [phone] PCP - General Family Medicine 06/04/24 documented as of this encounter
--- OUTSIDE RECORDS SUMMARY | 2024-09-21 22:57 | XMS_ITS | Encounter Summary ---
Author Organization [facility] [place] [address] Care Team Providers Care Licensed Architect Name Role Phone Danie Connor DO Primary Care Provider [phone] Encounter Details Date Type Department Care Team (Late st Contact Info) Description 08/25/2024 Notes Only Hematology/Oncology at [address] [phone] Ekta Womack RN Social History Tobacco Use [...] Progress Notes * Ekta Womack RN - 08/25/2024 9:01 AM EDT Clinical Research Nurse Note [place], [place] Miscellaneous lab kit draw for study #: Study Number:[id number] Description:Immune profiling for cancer Immunotherapy response Misc lab kit draw prior to infusion today. Date: 08/25/24 Time: 0840 [ ] misc lab kit blood drawn from venipuncture performed by health information coder [ ] medi port by health information coder. [ x ] medi port was accessed by [facility] for SOC labs earlier today. [facility] lab kit blood drawn from accessed port and flushed with 20 mls of saline per institutional policy. Specimens sent to : [ x ] [facility] 4th floor pathology lab in cooler via deck cadet [ ] Study ,via Fed ex per protocol requirements documented in this encounter Plan of Treatment Upcoming Encounters Date Type Department Care Team (Late st Contact Info) Description 10/06/2024 9:00 AM EST Office Visit Hematology/Oncology at [address] [phone] Shayla Vuong APRN [facility] DR HEMATOLOGY AND [place] [address] 10/06/2024 9:30 AM EST Scheduled View Only Hematology/Oncology at [address] [phone] Ekta Womack RN 10/06/2024 9:30 AM EST Infusion Hematology Oncology at [address] [phone] 10/07/2024 12:30 PM EST Infusion Hematology Oncology at [address] [address] 10/19/2024 10:00 AM EST Appointment [place] [phone] Pia Cooper MD [facility] HEMATOLOGY [place] [address] 10/19/2024 11:00 AM EST Appointment [place] [phone] Pia Cooper MD [facility] HEMATOLOGY AND [place] [address] 2024 9:00 AM EST Office Visit Hematology/Oncology at [address] [phone] Pia Cooper MD [facility] DR HEMATOLOGY [place] [address] 2024 9:30 AM EST Scheduled View Only Hematology/Oncology at [address] [phone] Ekta Womack, RN 2024 9:30 AM EST Infusion Hematology Oncology at [address] [phone] 11/17/2024 9:00 AM EST Office Visit Hematology/Oncology at [address] [phone] Shayla Vuong APRN [facility] DR HEMATOLOGY [place] [address] 11/17/2024 9:30 AM EST Scheduled View Only Hematology/Oncology at [address] [phone] Ekta Womack, RN 11/17/2024 9:30 AM EST Infusion Hematology Oncology at [address] [phone] documented as of this encounter Visit Diagnoses Not on filedocumented in this encounter Care Teams Licensed Architect Relationship Specialty Start Date End Date Danie Connor DO [address] [place] [phone] PCP - General Family Medicine 06/04/24 documented as of this encounter
--- OUTSIDE RECORDS SUMMARY | 2024-09-21 22:57 | XMS_ITS | Encounter Summary ---
Author Organization [facility] [place] Address [facility] [place] [address] Care Team Providers Care Supplier Quality Engineering Manager Name Role Phone Danie Connor DO Primary Care Provider [phone] Reason for Visit * Reason Comments Injections Nyvepria * Treatment/Therapy Plan Authorization (Routine) - Authorized [...] 10MG, INJECTION (ADRIAMYCIN) TC CYCLOPHOSPHAMIDE, 100MG (CYTOXAN) [id number] (POLATUZUMAB VEDOTIN-PIIQ) Brett Herr MD [facility] DR HEMATOLOGY [place] [address] Stj Hem Onc Infusion [address] [place] [phone] Referral ID Status Reason Start Date Expiration Date V isits Requested Visits Authorized [id number] Authorized 07/23/2024 07/23/2025 1 104 Encounter Details Date Type Department Care Team (Late st Contact Info) Description 08/26/2024 10:00 AM EDT Infusion Hematology Oncology at [address] [phone] Diffuse large B-cell lymphoma of [...] Sign Reading Time Taken Comments Blood Pressure 127/79 08/26/2024 9:55 AM EDT Pulse 85 08/26/2024 9:55 AM EDT Temperature 36.2 ??C (97.2 ??F) 08/26/2024 9:55 AM ED T Respiratory Rate 18 08/26/2024 9:55 AM EDT Oxygen Saturation 99% 08/26/2024 9:55 AM EDT Inhaled Oxygen Concentration - - Weight 92.4 kg (203 lb 9.6 oz) 08/26/2024 9:55 A M EDT Height 170.2 cm (5' 7.01) 08/26/2024 9:55 AM ED T Body Mass Index 31.88 08/26/2024 9:55 AM EDT documented in this encounter Progress Notes * Corie Miranda RN - 08/26/2024 10:00 AM EDT Infusion Note Diagnosis: DLBCL Treatment: Nyvepria Injection Administrations This Visit pegfilgrastim-apgf (Nyvepria) (6 mg/0.6 mL) injection 6 mg Admin Date 08/26/2024 Action Given Dose 6 mg Route Subcutaneous Documented By Corie Miranda RN Patient aware to call clinic with any questions or concerns. Plan: Return to clinic as scheduled. documented in this encounter Plan of Treatment Upcoming Encounters Date Type Department Care Team (Late st Contact Info) Description 10/06/2024 9:00 AM EST Office Visit Hematology/Oncology at [address] [phone] Shayla Vuong APRN [facility] DR HEMATOLOGY [place] [address] 10/06/2024 9:30 AM EST Scheduled View Only Hematology/Oncology at [address] [phone] Ekta Womack RN 10/06/2024 9:30 AM EST Infusion Hematology Oncology at [address] [phone] 10/07/2024 12:30 PM EST Infusion Hematology Oncology at [address] [phone] 10/19/2024 10:00 AM EST Appointment [place] [address] Pia Cooper MD [facility] HEMATOLOGY [place] [address] 10/19/2024 11:00 AM EST Appointment [place] [address] Pia Cooper MD [facility] DR HEMATOLOGY [place] [address] 2024 9:00 AM EST Office Visit Hematology/Oncology at [address] [phone] Pia Cooper MD [facility] HEMATOLOGY [place] [address] 2024 9:30 AM EST Scheduled View Only Hematology/Oncology at [address] [phone] Ekta Womack RN 2024 9:30 AM EST Infusion Hematology Oncology at [address] [phone] 11/17/2024 9:00 AM EST Office Visit Hematology/Oncology at [address] [phone] Shayla Vuong APRN [facility] DR HEMATOLOGY [place] [address] 11/17/2024 9:30 AM EST Scheduled View Only Hematology/Oncology at [address] [phone] Ekta Womack RN 11/17/2024 9:30 AM EST Infusion Hematology Oncology at [address] [phone] documented as of this encounter Visit Diagnoses Diagnosis 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 I have spoken to the unit pharmacist regarding this medication: Yes / [facility] Pharmacy is aware Given 08/26/2024 10:12 AM EDT 6 mg Right Arm documented in this encounter Care Teams Supplier Quality Engineering Manager Relationship Specialty Start Date End Date Danie Connor DO [address] [place] [phone] PCP - General Family Medicine 06/04/24 documented as of this encounter
--- OUTSIDE RECORDS SUMMARY | 2024-09-21 22:57 | XMS_ITS | Encounter Summary ---
Author Organization [facility] Address [facility] [place] [address] Care Team Providers Care Head Athletic Trainer Name Role Phone Geeta Danie Juli ORTEGA Primary Care Provider [phone] Reason for Visit * Reason Comments Chemotherapy [id number]/Polatuz umab/Doxorubicin/Cytoxan * Treatment/Therapy Plan Authorization (Routine) - [...] 10MG, INJECTION (ADRIAMYCIN) TC CYCLOPHOSPHAMIDE, 100MG (CYTOXAN) [id number] (POLATUZUMAB VEDOTIN-PIIQ) Brett Herr MD [facility] DR HEMATOLOGY [place] [address] Stj Hem Onc Infusion [address] [place] [phone] Referral ID Status Reason Start Date Expiration Date V isits Requested Visits Authorized [id number] Authorized 07/23/2024 07/23/2025 1 104 Encounter Details Date Type Department Care Team (Late st Contact Info) Description 08/04/2024 8:30 AM EDT Infusion Hematology Oncology at [address] [phone] 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 [...] order. OBJECTIVE LAB DATA: Drawn today at [facility] and [facility] for treatment. IV ACCESS: Port already accessed [...] and BSA by Marina Thao, RN & [facility]. REACTIONS (DESCRIPTION, TIME, INTERVENTION AND EFFECTIVENESS) After [...] clinic hours (8am-5pm Friday-Friday): pt. can call [phone] with questions or concerns. After clinic hours (5pm-8am Friday-Friday and weekends) pt can call [phone] and ask for the tufting machine operator/oncologist commissioning specialist. Brett Campos verbalized understanding of potential chemotherapy [...] AM EST Office Visit Hematology/Oncology at [address] [phone] Shayla Vuong APRN [facility] DR HEMATOLOGY [place] [address] 10/06/2024 9:30 AM EST Scheduled View Only Hematology/Oncology at [address] [phone] Ekta Womack, RN 10/06/2024 9:30 AM EST Infusion Hematology Oncology at [address] [phone] 10/07/2024 12:30 PM EST Infusion Hematology Oncology at [address] [phone] 10/19/2024 10:00 AM EST Appointment [place] [address] Pia Cooper MD [facility] DR HEMATOLOGY [place] [address] 10/19/2024 11:00 AM EST Appointment [place] [address] Pia Cooper MD [facility] HEMATOLOGY [place] [address] 2024 9:00 AM EST Office Visit Hematology/Oncology at [address] [phone] Pia Cooper MD [facility] HEMATOLOGY [place] [address] 2024 9:30 AM EST Scheduled View Only Hematology/Oncology at [address] [phone] Ekat Womack, RN 2024 9:30 AM EST Infusion Hematology Oncology at [address] [phone] 11/17/2024 9:00 AM EST Office Visit Hematology/Oncology at [address] [phone] Shayla Vuong, CLEMENTE [facility] DR HEMATOLOGY [place] [address] 11/17/2024 9:30 AM EST Scheduled View Only Hematology/Oncology at [address] [phone] Ekta Womack RN 11/17/2024 9:30 AM EST Infusion Hematology Oncology at [address] [phone] documented as of this encounter Visit Diagnoses [...] 2 minutes is a recommendation from the site controller. Administer prior to chemotherapy., Routine Given 08/04/2024 [...] Job Aid: Adult Flushing & Catheter Care (0275) job aid for additional information regarding guidelines and administration., Routine Given 08/04/2024 3:20 PM EDT 20 mLs sodium chloride 0.9% infusion 75 mL/hr, Intravenous, CONTINUOUS, Starting on Fri08/04/24 at 0830, Until Fri08/04/24 at 1825 New Bag 08/04/2024 9:10 AM EDT 75 mL/hr 75 mL/ hr documented in this encounter Care Teams Head Athletic Trainer Relationship Specialty Start Date End Date Danie Connor DO [address] [place] [phone] PCP - General Family Medicine 06/04/24 documented as of this encounter
--- OUTSIDE RECORDS SUMMARY | 2024-09-21 22:57 | XMS_ITS | Encounter Summary ---
Author Organization [facility] Address [facility] [place] [address] Care Team Providers Care Glass Or Mirror Inspector Name Role Phone Danie Connor Primary Care [...] 9:00 AM EST Office Visit Hematology/Oncology at [address] [phone] Shayla Vuong APRN [facility] DR HEMATOLOGY [place] [address] 10/06/2024 9:30 AM EST Scheduled View Only Hematology/Oncology at [address] [phone] Ekta Womack RN 10/06/2024 9:30 AM EST Infusion Hematology Oncology at [address] [phone] 10/07/2024 12:30 PM EST Infusion Hematology Oncology at [address] [phone] 10/19/2024 10:00 AM EST Appointment [place] [address] Pia Cooper MD [facility] DR HEMATOLOG[place] [address] 10/19/2024 11:00 AM EST Appointment [place] [address] Pia Cooper MD [facility] DR HEM[place] [address] 2024 9:00 AM EST Office Visit Hematology/Oncology at [address] [phone] Pia Cooper MD [facility] [place] [address] 2024 9:30 AM EST Scheduled View Only Hematology/Oncology at [address] [phone] Ekta Womack, [facility] 2024 9:30 AM EST Infusion Hematology Oncology at [address] [phone] 11/17/2024 9:00 AM EST Office Visit Hematology/Oncology at [address] [phone] Shayla Vuong APRN [facility] DR HEMATOLOG[place] [address] 11/17/2024 9:30 AM EST Scheduled View Only Hematology/Oncology at [address] [phone] Ekta Womack RN 11/17/2024 9:30 AM EST Infusion Hematology Oncology at [address] [phone] documented as of this encounter Visit Diagnoses Not on filedocumented in this encounter Care Teams Glass Or Mirror Inspector Relationship Specialty Start Date End Date Danie Connor DO [address] [place] [phone] PCP - General Family Medicine 06/04/24 documented as of this encounter
--- OUTSIDE RECORDS SUMMARY | 2024-09-21 22:57 | XMS_ITS | Encounter Summary ---
Author Organization [facility] [place] [address] Care Team Providers Care Minilab Operator Name Role Phone Danie Connor DO Primary Care Provider [phone] Encounter Details Date Type Department Care Team (Late st Contact Info) Description 08/13/2024 Telephone Hematology/Oncology at [address] [phone] Corie Miranda RN Social History Tobacco Use Types Packs/Day [...] encounter Miscellaneous Notes * Telephone Encounter - Corie Miranda RN - 08/13/2024 2:47 PM EDT Discharge note scanned in for your review. * Telephone Encounter - Corie Miranda RN - 08/13/2024 11:20 AM EDT Note from [facility] 08/12 Assessment and plan (1) Fever and neutropenia: Status: Acute Assessment and plan: continue cefepime while awaiting blood cultures, monitor daily ANC; consider further imaging of spine if he remains febrile and no source is found. will CT his head d/t his headaches. * Telephone Encounter - Corie Miranda RN - 08/13/2024 11:20 AM EDT ----- Message from Joyce Bran RN sent at 08/12/2024 1:34 PM EDT ----- Regarding: inpt at [facility] Please see if pt still inpt at [facility] for neutropenic fever, f/u with Sudha Vuong RECOVERY RN documented in this encounter Plan of Treatment Upcoming Encounters Date Type Department Care Team (Late st Contact Info) Description 10/06/2024 9:00 AM EST Office Visit Hematology/Oncology at [address] [phone] Shayla Vuong APRN [facility] H[place]AT[place] [address] 10/06/2024 9:30 AM EST Scheduled View Only Hematology/Oncology at [address] [address] Ekta Womack RN 10/06/2024 9:30 AM EST Infusion Hematology Oncology at [address] [address] 10/07/2024 12:30 PM EST Infusion Hematology Oncology at [address] [address] 10/19/2024 10:00 AM EST Appointment [place] [address] Pia Cooper MD [facility] H[place]ATOLOG[place] [address] 10/19/2024 11:00 AM EST Appointment [place] [address] Pia Cooper MD [facility] DR HEMATOLOGY [place] [address] 2024 9:00 AM EST Office Visit Hematology/Oncology at [address] [phone] Pia Cooper MD [facility] DR HEMATOLOGY [place] [address] 2024 9:30 AM EST Scheduled View Only Hematology/Oncology at [address] [phone] Ekta Womack, RN 2024 9:30 AM EST Infusion Hematology Oncology at [address] [phone] 11/17/2024 9:00 AM EST Office Visit Hematology/Oncology at [address] [phone] Shayla Vuong, CLEMENTE [facility] DR HEMATOLOGY [place] [address] 11/17/2024 9:30 AM EST Scheduled View Only Hematology/Oncology at [address] [phone] Ekta Womack, RN 11/17/2024 9:30 AM EST Infusion Hematology Oncology at [address] [phone] documented as of this encounter Visit Diagnoses Not on filedocumented in this encounter Care Teams Minilab Operator Relationship Specialty Start Date End Date Danie Connor DO [address] [place] [address] PCP - General Family Medicine 06/04/24 documented as of this encounter
--- OUTSIDE RECORDS SUMMARY | 2024-09-21 22:57 | XMS_ITS | Encounter Summary ---
Author Organization [facility] Address [facility] [place] [address] Care Team Providers Care Plastic Surgery Technician Name Role Phone Danie Connor Primary Care [...] AM EST Office Visit Hematology/Oncology at [address] [phone] Shalya Vuong APRN [facility] [place] [address] 10/06/2024 9:30 AM EST Scheduled View Only Hematology/Oncology at [address] [phone] Ekta Womack RN 10/06/2024 9:30 AM EST Infusion Hematology Oncology at [address] [address] 10/07/2024 12:30 PM EST Infusion Hematology Oncology at [address] [address] 10/19/2024 10:00 AM EST Appointment [place] [address] Pia Cooper MD [facility] [place] [address] 10/19/2024 11:00 AM EST Appointment [place] [address] Pia Cooper MD [facility] [place] [address] 2024 9:00 AM EST Office Visit Hematology/Oncology at [address] [phone] Pia Cooper MD [facility] [place] [address] 2024 9:30 AM EST Scheduled View Only Hematology/Oncology at [address] [phone] Ekta Womack, HUONG 2024 9:30 AM EST Infusion Hematology Oncology at [address] [address] 11/17/2024 9:00 AM EST Office Visit Hematology/Oncology at [address] [phone] Shayla Vuong APRN [facility] [place] [address] 11/17/2024 9:30 AM EST Scheduled View Only Hematology/Oncology at [address] [phone] Ekta Womack RN 11/17/2024 9:30 AM EST Infusion Hematology Oncology at [address] [phone] documented as of this encounter Visit Diagnoses Not on filedocumented in this encounter Care Teams Plastic Surgery Technician Relationship Specialty Start Date End Date Danie Connor DO [address] [place] [phone] PCP - General Family Medicine 06/04/24 documented as of this encounter
--- OUTSIDE RECORDS SUMMARY | 2024-09-21 22:57 | XMS_ITS | Encounter Summary ---
Author Organization [facility] [place] [address] Care Team Providers Care Polysomnographic Tech Name Role Phone Danie Connor DO Primary Care Provider [phone] Encounter Details Date Type Department Care Team (Late st Contact Info) Description 08/05/2024 Notes Only Hematology/Oncology at [address] [phone] Aurea Galindo MSW OFFICE OF CARE MANAGEMENT [...] 9:00 AM EST Office Visit Hematology/Oncology at [address] [phone] Shayla Vuong APRN [facility] DR HEMATOLOGY [place] [address] 10/06/2024 9:30 AM EST Scheduled View Only Hematology/Oncology at [address] [phone] Ekta Womack RN 10/06/2024 9:30 AM EST Infusion Hematology Oncology at [address] [address] 10/07/2024 12:30 PM EST Infusion Hematology Oncology at [address] [address] 10/19/2024 10:00 AM EST Appointment [place] [address] Pia Cooper MD [facility] HEMATOLOGY [place] [address] 10/19/2024 11:00 AM EST Appointment [place] [address] Pia Cooper MD [facility] HEMATOLOGY [place] [address] 2024 9:00 AM EST Office Visit Hematology/Oncology at [address] [phone] Pia Cooper MD [facility] DR HEMATOLOGY [place] [address] 2024 9:30 AM EST Scheduled View Only Hematology/Oncology at [address] [phone] Ekta Womack, RN 2024 9:30 AM EST Infusion Hematology Oncology at [address] [phone] 11/17/2024 9:00 AM EST Office Visit Hematology/Oncology at [address] [phone] Shayla Vuong APRN [facility] DR HEMATOLOGY [place] [address] 11/17/2024 9:30 AM EST Scheduled View Only Hematology/Oncology at [address] [phone] Ekta Womack, RN 11/17/2024 9:30 AM EST Infusion Hematology Oncology at [address] [phone] documented as of this encounter Visit Diagnoses Not on filedocumented in this encounter Care Teams Polysomnographic Tech Relationship Specialty Start Date End Date Danie Connor DO [address] [place] [phone] PCP - General Family Medicine 06/04/24 documented as of this encounter
--- OUTSIDE RECORDS SUMMARY | 2024-09-21 22:57 | XMS_ITS | Encounter Summary ---
[place] [address] Care Team Providers Care Medical Billing Supervisor Name Role Phone Danie Connor DO Primary Care Provider [phone] Reason for Referral * Diagnostic Test (STAT) - Closed Specialty Diagnoses / Procedures Referred By Contac t Referred To Contact Radiology Diagnoses 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 of multiple regions Procedures IR Mediport Placement Brett Herr MD [facility] DR [place] [address] [facility] [place] [address] Referral ID Status Reason Start Date Expiration Date V isits Requested Visits Authorized [id number] Closed Specialty Service Requested 07/23/2024 01/23/2026 1 1 Reason for Visit * Reason Comments Follow-up Encounter Details Date Type Department Care Team (Late st Contact Info) Description 07/23/2024 4:00 PM EDT Office Visit Hematology [place] [address] Brett Herr MD [facility] DR [place] [address] Diffuse large B-cell lymphoma of [...] for his care to be transferred to [facility]. Plan - Mediport - Chemotherapy (RCHOP or Galo-R-CHP) as soon as possible - Transfer of care to [facility]. Patient seen and discussed with Dr. Herr. Dimitri Rhodes MD Hematology/Oncology Fellow documented in this encounter Plan of Treatment Upcoming Encounters Date Type Department Care Team (Late st Contact Info) Description 10/06/2024 9:00 AM EST Office Visit Hematology/Oncology at [address] [phone] Shayla Vuong APRN [facility] DR [place] [address] 10/06/2024 9:30 AM EST Scheduled View Only Hematology/Oncology at [address] [phone] Ekta Womack RN 10/06/2024 9:30 AM EST Infusion Hematology Oncology at [address] [phone] 10/07/2024 12:30 PM EST Infusion Hematology Oncology at [address] [phone] 10/19/2024 10:00 AM EST Appointment [place] [address] Pia Cooper MD [facility] DR [place] [address] 10/19/2024 11:00 AM EST Appointment [place] [address] Pia Cooper MD [facility] DR [place] [address] 2024 9:00 AM EST Office Visit Hematology/Oncology at [address] [phone] Pia Cooper MD [facility] DR [place] [address] 2024 9:30 AM EST Scheduled View Only Hematology/Oncology at [address] [phone] Ekta Womack, HUONG 2024 9:30 AM EST Infusion Hematology Oncology at [address] [phone] 11/17/2024 9:00 AM EST Office Visit Hematology/Oncology at [address] [phone] Shayla Vuong APRN [facility] DR [place] [address] 11/17/2024 9:30 AM EST Scheduled View Only Hematology/Oncology at [address] [phone] Ekta Womack RN 11/17/2024 9:30 AM EST Infusion Hematology Oncology at [address] [phone] documented as of this encounter Results * IR Mediport Placement (07/27/2024 9:06 AM EDT) Anatomical Region Laterality Modality X-Ray Angiograph y Narrative 07/27/2024 10:39 AM EDT Interventional Radiology Procedure Note Procedure: Chest port implant Indication: Diffuse large B-cell lymphoma, durable group home central venous access for chemotherapy Procedure summary: [...] junction. The port may be used immediately. panel saw operator: Gutierrez Skinner PA-C. Present during the [...] regions documented in this encounter Care Teams Medical Billing Supervisor Relationship Specialty Start Date End Date Danie Connor DO [address] [place] [address] PCP - General Family Medicine 06/04/24 documented as of this encounter
--- OUTSIDE RECORDS SUMMARY | 2024-09-21 22:57 | XMS_ITS | Encounter Summary ---
Author Organization [facility] Address [facility] [place] [address] Care Team Providers Care Chief Counsel Name Role Phone Danie Connor Primary Care [...] 9:00 AM EST Office Visit Hematology/Oncology at [address] [phone] Shayla Vuong APRN [facility] DR HEMATOLOGY [place] [address] 10/06/2024 9:30 AM EST Scheduled View Only Hematology/Oncology at [address] [phone] Ekta Womack RN 10/06/2024 9:30 AM EST Infusion Hematology Oncology at [address] [phone] 10/07/2024 12:30 PM EST Infusion Hematology Oncology at [address] [phone] 10/19/2024 10:00 AM EST Appointment [place] [address] Pia Cooper MD [facility] DR HEMATOLOGY [place] [address] 10/19/2024 11:00 AM EST Appointment [place] [address] Pia Cooper MD [facility] DR HEMATOLOGY [place] [address] 2024 9:00 AM EST Office Visit Hematology/Oncology at [address] [phone] Pia Cooper MD [facility] HEMATOLOGY [place] [address] 2024 9:30 AM EST Scheduled View Only Hematology/Oncology at [address] [phone] Ekta Womack, HUONG 2024 9:30 AM EST Infusion Hematology Oncology at [address] [address] 11/17/2024 9:00 AM EST Office Visit Hematology/Oncology at [address] [phone] Shayla Vuong APRN [facility] DR HEMATOLOGY [place] [address] 11/17/2024 9:30 AM EST Scheduled View Only Hematology/Oncology at [address] [phone] Ekta Womack RN 11/17/2024 9:30 AM EST Infusion Hematology Oncology at [address] [phone] documented as of this encounter Visit Diagnoses Not on filedocumented in this encounter Care Teams Chief Counsel Relationship Specialty Start Date End Date Danie Connor DO [address] [place] [address] PCP - General Family Medicine 06/04/24 documented as of this encounter
--- OUTSIDE RECORDS SUMMARY | 2024-09-21 22:57 | XMS_ITS | Encounter Summary ---
Author Organization [facility] Address [facility] [place] [address] Care Team Providers Care Water Regulator And Valve Repairer Name Role Phone Danie Connor Primary Care Provider Encounter Details Date Type Department Care Team (Latest Contact Info) Description 08/23/2024 Travel Social History Tobacco Use Types Packs/Day [...] 9:00 AM EST Office Visit Hematology/Oncology at [address] [phone] Shayla Vuong APRN [facility] DR HEMATOLOGY [place] [address] 10/06/2024 9:30 AM EST Scheduled View Only Hematology/Oncology at [address] [phone] Ekta Womack RN 10/06/2024 9:30 AM EST Infusion Hematology Oncology at [address] [address] 10/07/2024 12:30 PM EST Infusion Hematology Oncology at [address] [address] 10/19/2024 10:00 AM EST Appointment [place] [address] Pia Cooper MD [facility] DR HEMATOLOGY [place] [address] 10/19/2024 11:00 AM EST Appointment [place] [address] Pia Cooper MD [facility] DR HEMATOLOGY [place] [address] 2024 9:00 AM EST Office Visit Hematology/Oncology at [address] [phone] Pia Cooper MD [facility] HEMATOLOGY [place] [address] 2024 9:30 AM EST Scheduled View Only Hematology/Oncology at [address] [address] Ekta Womack, HUONG 2024 9:30 AM EST Infusion Hematology Oncology at [address] [address] 11/17/2024 9:00 AM EST Office Visit Hematology/Oncology at [address] [address] Shayla Vuong APRN [facility] DR HEMATOLOGY [place] [address] 11/17/2024 9:30 AM EST Scheduled View Only Hematology/Oncology at [address] [phone] Ekta Womack RN 11/17/2024 9:30 AM EST Infusion Hematology Oncology at [address] [phone] documented as of this encounter Visit Diagnoses Not on filedocumented in this encounter Care Teams Water Regulator And Valve Repairer Relationship Specialty Start Date End Date Danie Connor DO [address] [place] [phone] PCP - General Family Medicine 06/04/24 documented as of this encounter
--- OUTSIDE RECORDS SUMMARY | 2024-09-21 22:57 | XMS_ITS | Encounter Summary ---
Author Organization [facility] [place] [address] Care Team Providers Care Quality Control Microbiology Supervisor Name Role Phone Geeta Danie Bustos Primary Care Provider [phone] Reason for Visit * Reason Comments Follow-up Encounter Details Date Type Department Care Team (Late st Contact Info) Description 08/11/2024 12:00 PM EDT Office Visit Hematology/Oncology at [address] [phone] Shayla Vuong APRN [facility] DR HEMATOLOGY [place] [address] 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 of multiple regions; Encounter for chemotherapy management Social History Tobacco Use Types Packs/Day Years [...] 11:46 AM EDT documented in this encounter Progress Notes * Shayla Vuong, SOLE EDGE INKER MACHINE - 08/11/2024 12:00 PM EDT OUTPATIENT HEMATOLOGY/ ONCOLOGY CONSULTATION HISTORY [...] HISTORY Brett returns to clinic today for an unscheduled visit due to side effects. He was scheduled for a mid-cycle check later this week. Brett received cycle # 1 Aglo-R-CHP 1 week ago. He describes the following symptoms in response to treatment; Headache developed day 2 Belly ache which may be consistent with mild nausea or GERD on further questioning Low back/pelvic pain and leg pain developing ~ 24 hours ago [day 8 post chemo] No fevers, chills, recurrent infections or intercurrent illnesses. No drenching sweats, unintentional weight loss or new enlarging palpable adenopathy. No new health-related concerns expressed today.We discussed his chemo experience and ways in which we can modify his supportive care medications to minimize side effects to which he was quite relieved. SOCIAL HISTORY- reviewed with significant changes noted Works at [employer] MEDICATIONS AND ALLERGIES- reviewed at this visit Medications 08/11/24 1205 Medication Sig Taking? ibuprofen (Advil) 200 mg tablet Take 400 mg by mouth as needed for Pain. Yes sulfamethoxazole-trimethoprim DS (Bactrim DS) 800-160 mg tablet One tablet every Fri, Fri Yes acyclovir (Zovirax) 400 mg tablet Take 1 tablet by mouth 2 times daily. Yes allopurinoL (Zyloprim) 300 mg tablet Take 1 tablet by mouth daily for 30 days. Take for the first month of chemotherapy by mouth to prevent tumor lysis Yes prochlorperazine (Compazine) 10 mg tablet Take [...] are negative PHYSICAL EXAMINATION Vital signs: BP 113/75 (Patient Position: Sitting) Pulse 85 Temp 36.5 ??C (97.7 ??F) (Temporal) Resp 16 Ht 170.2 cm (5' 7.01) Wt 88.9 kg (196 lb) SpO2 98% BMI 30.69 kg/m?? Constitutional/General: well-developed, well-nourished, well-appearing 48 year [...] all extremities spontaneously, grossly intact LABORATORY EVALUATION 08/11/24 00:00 WBC - External 0.60 (E) Hemoglobin - External 12.2 (E) Hematocrit - External 35.3 (E) Platelets - External 160 (E) Neutr ABS (ANC) - External 0.03 (E) Potassium - External 3.6 (E) Creatinine - External 1 (E) Total Bilirubin - External 1.16 (E) AST (SGOT) - External 23 (E) ALT (SGPT) - External 23 (E) LDH - External 189 (E) (E): External lab result RADIOLOGY: No new images reviewed today ASSESSMENT/PLAN: Brett Campos is a 48 y.o. male presents with what is now known to be DLBCL. Since our last visit, PET/CT has suggested disease localized to unilateral submandibular gland and possibly unilateral cervical lymph node. Excisional biopsy of submandibular mass revealed DLBCL. We reviewed treatment goal of cure, his chemo experience and mechanism to address and minimize sideeffects as described above. He will RTC in ~ 2 weeks in anticipation of cycle #3 Galo-R-CHP. In theinterim, he will start Claritin once daily for bone pain from marrow expansion. Peak effect of peg-filgrastim is day 11 so his symptoms should improve in the next few days. It sounds like he has a h/o GERD exacerbated by Prednisone. He will likely benefit from PPI throughout course of chemo thus wewill prescribed Omeprazole 20mg/day, can increase to 40mg based on symptomatic effect. Explained that headache are likely related to Aloxi. He can use Tylenol as needed should he experience that withcycle #2 as long as he checks temperature prior to dosing the Tylenol. . Anticipate overall either 6 cycles of systemic therapy or a truncated systemic therapy with addition of radiation based on interval PET after cycle 4. - RTC on 08/25 for cycle #2 Galo-R-CHP as scheduled - Can d/c Allopurinol with cycle #2 - Given genny ANC, we will continue Udenyca support of day 2 of cycle [Neulasta- ONPRO not approved by insurance] - Continue antimicrobial prophylaxis with Bactrim DS 1 tab daily on Friday, Friday and Fridays for PJP prophylaxis and Acyclovir 400mg BID for suppression of herpes viruses - Brett was reminded that we remain available in the interim should questions/concerns arise. Discussed neutropenic precautions and contact numbers to call should he develop fever, chills, signs of infection. - General medical care and age appropriate health screenings remain under the direction of DO Shayla Main, MSN, SOLE EDGE INKER MACHINE Nurse Practitioner Section of Hematology Cc: Danie Connor DO documented in this encounter Plan of Treatment Upcoming Encounters Date Type Department Care Team (Late st Contact Info) Description 10/06/2024 9:00 AM EST Office Visit Hematology/Oncology at [address] [phone] Shayla Vuong APRN [facility] DR HEMATOLOGY [place] [address] 10/06/2024 9:30 AM EST Scheduled View Only Hematology/Oncology at [address] [phone] Ekta Womack RN 10/06/2024 9:30 AM EST Infusion Hematology Oncology at [address] [phone] 10/07/2024 12:30 PM EST Infusion Hematology Oncology at [address] [phone] 10/19/2024 10:00 AM EST Appointment [place] [address] Pia Cooper MD [facility] DR HEMATOLOGY [place] [address] 10/19/2024 11:00 AM EST Appointment [place] [address] Pia Cooper MD [facility] HEMATOLOGY [place] [address] 2024 9:00 AM EST Office Visit Hematology/Oncology at [address] [address] Pia Cooper MD [facility] DR HEMATOLOGY [place] [address] 2024 9:30 AM EST Scheduled View Only Hematology/Oncology at [address] [address] Ekta Womack RN 2024 9:30 AM EST Infusion Hematology Oncology at [address] [address] 11/17/2024 9:00 AM EST Office Visit Hematology/Oncology at [address] [address] Shayla Vuong APRN [facility] HEMATOLOGY [place] [address] 11/17/2024 9:30 AM EST Scheduled View Only Hematology/Oncology at [address] [phone] Ekta Womack RN 11/17/2024 9:30 AM EST Infusion Hematology Oncology at [address] [phone] documented as of this encounter Procedures Procedure [...] lymphoma of lymph nodes of multiple regions Encounter for chemotherapy management documented in this encounter Care Teams Quality Control Microbiology Supervisor Relationship Specialty Start Date End Date Danie Connor DO [address] [place] [phone] PCP - General Family Medicine 06/04/24 documented as of this encounter
--- OUTSIDE RECORDS SUMMARY | 2024-09-21 22:57 | XMS_ITS | Encounter Summary ---
Author Organization [facility] Address [facility] [place] [address] Care Team Providers Care Mortgage Loan Specialist Name Role Phone Danie Connor Primary Care Provider [phone] Encounter Details Date Type Department Care Team [...] AM EST Office Visit Hematology/Oncology at [address] [phone] Shayla Vuong APRN [facility] DR HEMATOLOGY [place] [address] 10/06/2024 9:30 AM EST Scheduled View Only Hematology/Oncology at [address] [phone] Ekta Womack RN 10/06/2024 9:30 AM EST Infusion Hematology Oncology at [address] [address] 10/07/2024 12:30 PM EST Infusion Hematology Oncology at [address] [phone] 10/19/2024 10:00 AM EST Appointment [place] [address] Pia Cooper MD [facility] DR HEMATOLOGY [place] [address] 10/19/2024 11:00 AM EST Appointment [place] [address] Pia Cooper MD [facility] DR HEMATOLOGY [place] [address] 2024 9:00 AM EST Office Visit Hematology/Oncology at [address] [address] Pia Cooper MD [facility] HEMATOLOGY [place] [address] 2024 9:30 AM EST Scheduled View Only Hematology/Oncology at [address] [address] Ekta Womack, HUONG 2024 9:30 AM EST Infusion Hematology Oncology at [address] [address] 11/17/2024 9:00 AM EST Office Visit Hematology/Oncology at [address] [address] Shayla Vuong APRN [facility] DR HEMATOLOGY [place] [address] 11/17/2024 9:30 AM EST Scheduled View Only Hematology/Oncology at [address] [phone] Ekta Womack RN 11/17/2024 9:30 AM EST Infusion Hematology Oncology at [address] [phone] documented as of this encounter Visit Diagnoses Not on filedocumented in this encounter Care Teams Mortgage Loan Specialist Relationship Specialty Start Date End Date Danie Connor DO [address] [place] [address] PCP - General Family Medicine 06/04/24 documented as of this encounter
--- OUTSIDE RECORDS SUMMARY | 2024-09-21 22:57 | XMS_ITS | Encounter Summary ---
Author Organization [facility] Address [facility] [place] [address] Care Team Providers Care Bobbin Collector Name Role Phone Geeta Danie Bustos Primary Care Provider [phone] Encounter Details Date Type Department Care Team (Late st Contact Info) Description 08/25/2024 8:00 AM EDT Office Visit Hematology/Oncology at [address] [phone] Pia Cooper MD [facility] DR HEMATOLOGY [place] [address] Shayla Vuong APRN [facility] [place] [address] 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 [...] Sign Reading Time Taken Comments Blood Pressure 117/76 08/25/2024 7:52 AM EDT Pulse 86 08/25/2024 7:52 AM EDT Temperature 36.9 ??C (98.4 ??F) 08/25/2024 7:52 AM ED T Respiratory Rate 16 08/25/2024 7:52 AM EDT Oxygen Saturation 99% 08/25/2024 7:52 AM EDT Inhaled Oxygen Concentration - - Weight 90.7 kg (200 lb) 08/25/2024 7:52 AM EDT Height 170.2 cm (5' 7.01) 08/25/2024 7:52 AM ED T Body Mass Index 31.32 08/25/2024 7:52 AM EDT documented in this encounter Progress Notes * Pia Cooper MD - 08/25/2024 8:00 AM EDT OUTPATIENT HEMATOLOGY/ ONCOLOGY CONSULTATION [...] Galo- R-CHP initiated on 08/04/24 08/12/24 ADMIT [facility] for neutropenic fever. No identified source INTERIM HISTORY Brett returns to clinic today for consideration of C#2 Galo-R-CHP. Brett received cycle # 1 Galo-R-CHP 08/04/24. He describes the following symptoms in response to treatment; Headache developed day 2 Belly ache which may be consistent with mild nausea or GERD on further questioning - prilosec helping - food upsets his stomach and then he gets the pain Anxious and verma her his sister Low back/pelvic pain and leg pain - now different - might be a strain 08/12/2024 admitted to [facility] for neutropenic fever. Rapid count recovery and discharged on 08/13/2024. No fevers, chills, recurrent infections or intercurrent [...] 32, 28, 20 8 grandchildren. 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 omeprazole (PriLOSEC) [address] capsule Take 20 mg by mouth daily. Yes sulfamethoxazole-trimethoprim DS (Bactrim DS) 800-160 mg tablet One tablet every Fri, Wed Friday Yes acyclovir (Zovirax) 400 mg [...] each cycle of chemotherapy by mouth Yes Vimpat 200 mg Tablet Take 1/2 (one-half) tablet by mouth twice daily Yes lamoTRIgine (LaMICtal) 200 mg Tablet Take 1 tablet by mouth 2 times daily. Yes levoFLOXacin (Levaquin) 500 mg tablet Take 1 tablet by mouth daily. ibuprofen (Advil) 200 mg tablet Take 400 mg by mouth as needed for Pain. ondansetron (Zofran) 8 mg tablet Take 1 tablet by mouth every 8 hours as needed for Nausea. 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 Constitutional/General: well-developed, well-nourished, well-appearing 48 year old male in [facility]: anicteric sclera, oropharnyx clear without [...] Creatinine - External 1 Potassium - External 3.8 AST (SGOT) - External 14 ALT (SGPT) - External 22 Total Bilirubin - External 0.46 LDH - External 215 Uric Acid - External 2.5 External Hematology Lab Results Result Value Ref Range WBC - External 8.35 Hemoglobin - External 13.3 Hematocrit - External 38.2 Platelets - External 306 Neutr ABS (ANC) - External 6.45 DIAGNOSTICS: Echo 06/24/24 at EF 56% PATHOLOGY: [...] and admission for neutropenic fever despite pegfilgastrim. Will proceed w/ C#2. Stop allopurinol in one week. Continue PPI. Add levofloxacin prophy X 2 weeks.Pegfilgastrim on day 2 per insurance requirments. - RTC in 3 weeks for cycle #2 Galo-R-CHP as scheduled - Can d/c Allopurinol when prednisone is completed. - Given genny ANC, we will continue Udenyca support of day 2 of cycle [Neulasta- ONPRO not approved by insurance] - Continue antimicrobial prophylaxis with Bactrim DS 1 tab daily on Friday, Friday and Fridays for PJP prophylaxis and Acyclovir 400mg BID for suppression of herpes viruses - add levoflox X 14 days with D#2 - Continue PPI - Brett was reminded [...] AM EST Office Visit Hematology/Oncology at [address] [address] Shayla Vuong APRN [facility] HEMATOLOGY [place] [address] 10/06/2024 9:30 AM EST Scheduled View Only Hematology/Oncology at [address] [address] Ekta Womack RN 10/06/2024 9:30 AM EST Infusion Hematology Oncology at [address] [phone] 10/07/2024 12:30 PM EST Infusion Hematology Oncology at [address] [address] 10/19/2024 10:00 AM EST Appointment [place] [address] Pia Cooper MD [facility] HEMATOLOGY [place] [address] 10/19/2024 11:00 AM EST Appointment [place] [address] Pia Cooper MD [facility] HEMATOLOGY [place] [address] 2024 9:00 AM EST Office Visit Hematology/Oncology at [address] [phone] Pia Cooper MD [facility] HEMATOLOGY [place] [address] 2024 9:30 AM EST Scheduled View Only Hematology/Oncology at [address] [phone] Ekta Womack RN 2024 9:30 AM EST Infusion Hematology Oncology at [address] [phone] 11/17/2024 9:00 AM EST Office Visit Hematology/Oncology at [address] [phone] Shayla Vuong, [facility] DR HEMATOLOGY [place] [address] 11/17/2024 9:30 AM EST Scheduled View Only Hematology/Oncology at [address] [phone] Ekta Womack RN 11/17/2024 9:30 AM EST Infusion Hematology Oncology at [address] [phone] documented as of this encounter Procedures Procedure Name Priority Date/Time Associated Diagnosis Comments EXTERNAL HEMATOLOGY LAB RESULTS Routine 08/25/2024 EXTERNAL CHEMISTRY LAB RESULTS Routine 08/25/2024 documented in this encounter Results * External Hematology Lab Results (08/25/2024) Pathologist [facility] WBC - External 8.35 Hemoglobin - External 13.3 Hematocrit - External 38.2 Platelets - External 306 Neutr ABS (ANC) - External 6.45 08/25/2024 Historical Provider EXTERNAL LAB KALEIGH JEFFRIES * External Chemistry Lab Results (08/25/2024) Pathologist [facility] Creatinine - External 1 Potassium - External 3.8 AST (SGOT) - External 14 ALT (SGPT) - External 22 Total Bilirubin - External 0.46 LDH - External 215 Uric Acid - External 2.5 08/25/2024 Historical Provider MD EXTERNAL LAB KALEIGH JEFFRIES documented in this encounter Visit Diagnoses Diagnosis 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 of multiple regions documented in this encounter Care Teams Bobbin Collector Relationship Specialty Start Date End Date Danie Connor DO [address] [place] [address] PCP - General Family Medicine 06/04/24 documented as of this encounter
--- OUTSIDE RECORDS SUMMARY | 2024-09-21 22:57 | XMS_ITS | Encounter Summary ---
[place] [address] Care Team Providers Care Service Delivery Management Consultant Name Role Phone Danie Connor DO Primary Care Provider [phone] Encounter Details Date Type Department Care Team (Late st Contact Info) Description 07/19/2024 Telephone Hematology [place] [phone] Laquita Borden RN Social History Tobacco Use Types Packs/Day Years Used Date Smoking Tobacco: Never Smokeless Tobacco: Never Alcohol Use Standard Drinks/Week Comments No 0 (1 standard drink = 0.6 oz pur e alcohol) [facility] Inpatient Questions Answer Date Recorded [...] - 07/19/2024 1:24 PM EDT Message from clerk secretary: Brett's sister, Breana, called. Patient had a LN biopsy on 06/28 and yesterday his neck swelled up yesterday and is very tender. No fevers but she's afraid something is going on. Please give her a call at: [phone]. Caller: Jill Pineda Relationship: sister Clarified Two Patient Identifiers: [x] Reason For Call: see msg above. Assessment/Symptom Review (onset, location, duration, what makes it better or worse, pertinent positives and negatives): Pt had LN biopsy 06/28. Site on neck has been kept clean and dry, MARIA TERESA. Yesterday pt started feeling pain at site [...] 9:00 AM EST Office Visit Hematology/Oncology at [address] [phone] Shayla Vuong APRN [facility] HEMATOLOGY [place] [address] 10/06/2024 9:30 AM EST Scheduled View Only Hematology/Oncology at [address] [phone] Ekta Womack RN 10/06/2024 9:30 AM EST Infusion Hematology Oncology at [address] [address] 10/07/2024 12:30 PM EST Infusion Hematology Oncology at [address] [address] 10/19/2024 10:00 AM EST Appointment [place] [address] Pia Cooper MD [facility] DR HEMATOLOGY [place] [address] 10/19/2024 11:00 AM EST Appointment [place] [address] Pia Cooper MD [facility] DR HEMATOLOGY [place] [address] 2024 9:00 AM EST Office Visit Hematology/Oncology at [address] [address] Pia Cooper MD [facility] HEMATOLOGY [place] [address] 2024 9:30 AM EST Scheduled View Only Hematology/Oncology at [address] [address] Ekta Womack RN 2024 9:30 AM EST Infusion Hematology Oncology at [address] [address] 11/17/2024 9:00 AM EST Office Visit Hematology/Oncology at [address] [phone] Shayla Vuong APRN [facility] HEMATOLOGY [place] [address] 11/17/2024 9:30 AM EST Scheduled View Only Hematology/Oncology at [address] [phone] Ekta Womack RN 11/17/2024 9:30 AM EST Infusion Hematology Oncology at [address] [phone] documented as of this encounter Visit Diagnoses Not on filedocumented in this encounter Care Teams Service Delivery Management Consultant Relationship Specialty Start Date End Date Danie Connor DO [address] [place] [address] PCP - General Family Medicine 06/04/24 documented as of this encounter
--- OUTSIDE RECORDS SUMMARY | 2024-09-21 22:57 | XMS_ITS | Encounter Summary ---
Author Organization [facility] Address [facility] [place] [address] Care Team Providers Care Traffic Control Flagger Name Role Phone Danie Connor Primary Care Provider [phone] Encounter Details Date Type Department Care Team [...] AM EST Office Visit Hematology/Oncology at [address] [phone] Shayla Vuong APRN [facility] DR [place] [address] 10/06/2024 9:30 AM EST Scheduled View Only Hematology/Oncology at [address] [phone] Ekta Womack RN 10/06/2024 9:30 AM EST Infusion Hematology Oncology at [address] [address] 10/07/2024 12:30 PM EST Infusion Hematology Oncology at [address] [address] 10/19/2024 10:00 AM EST Appointment [place] [address] Pia Cooper MD [facility] DR [place] [address] 10/19/2024 11:00 AM EST Appointment [place] [address] Pia Cooper MD [facility] DR [place] [address] 2024 9:00 AM EST Office Visit Hematology/Oncology at [address] [address] Pia Cooper MD [facility] [place] [address] 2024 9:30 AM EST Scheduled View Only Hematology/Oncology at [address] [phone] Ekta Womack, HUONG 2024 9:30 AM EST Infusion Hematology Oncology at [address] [address] 11/17/2024 9:00 AM EST Office Visit Hematology/Oncology at [address] [address] Shayla Vuong APRN [facility] DR [place] [address] 11/17/2024 9:30 AM EST Scheduled View Only Hematology/Oncology at [address] [phone] Ekta Womack RN 11/17/2024 9:30 AM EST Infusion Hematology Oncology at [address] [phone] documented as of this encounter Visit Diagnoses Not on filedocumented in this encounter Care Teams Traffic Control Flagger Relationship Specialty Start Date End Date Danie Connor DO [address] [place] [address] PCP - General Family Medicine 06/04/24 documented as of this encounter
--- OUTSIDE RECORDS SUMMARY | 2024-09-21 22:57 | XMS_ITS | Encounter Summary ---
Author Organization [facility] Address [facility] [place] [address] Care Team Providers Care Networks Software Consultant Name Role Phone Danie Connor Primary Care Provider Encounter Details Date Type Department Care Team (Latest Contact Info) Description 08/25/2024 Travel Social History Tobacco Use Types Packs/Day [...] 9:00 AM EST Office Visit Hematology/Oncology at [address] [phone] Shayla Vuong APRN [facility] DR HEMATOLOGY [place] [address] 10/06/2024 9:30 AM EST Scheduled View Only Hematology/Oncology at [address] [phone] Ekta Womack RN 10/06/2024 9:30 AM EST Infusion Hematology Oncology at [address] [address] 10/07/2024 12:30 PM EST Infusion Hematology Oncology at [address] [address] 10/19/2024 10:00 AM EST Appointment [place] [address] Pia Cooper MD [facility] DR HEMATOLOGY [place] [address] 10/19/2024 11:00 AM EST Appointment [place] [address] Pia Cooper MD [facility] DR HEMATOLOGY [place] [address] 2024 9:00 AM EST Office Visit Hematology/Oncology at [address] [address] Pia Cooper MD [facility] HEMATOLOGY [place] [address] 2024 9:30 AM EST Scheduled View Only Hematology/Oncology at [address] [address] Ekta Womack, HUONG 2024 9:30 AM EST Infusion Hematology Oncology at [address] [address] 11/17/2024 9:00 AM EST Office Visit Hematology/Oncology at [address] [address] Shayla Vuong APRN [facility] DR HEMATOLOGY [place] [address] 11/17/2024 9:30 AM EST Scheduled View Only Hematology/Oncology at [address] [phone] Ekta Womack RN 11/17/2024 9:30 AM EST Infusion Hematology Oncology at [address] [phone] documented as of this encounter Visit Diagnoses Not on filedocumented in this encounter Care Teams Networks Software Consultant Relationship Specialty Start Date End Date Danie Connor DO [address] [place] [address] PCP - General Family Medicine 06/04/24 documented as of this encounter
--- OUTSIDE RECORDS SUMMARY | 2024-09-21 22:57 | XMS_ITS | Encounter Summary ---
Author Organization [facility] [place] [address] Care Team Providers Care Payroll Bookkeeper Name Role Phone Danie Connor DO Primary Care Provider [phone] Encounter Details Date Type Department Care Team ([facility] Contact Info) Description 08/12/2024 Telephone Hematology/Oncology at [address] [phone] Joyce Allred RN Social History Tobacco Use Types Packs/Day [...] Telephone Encounter - Joyce Allred RN - 08/12/2024 1:33 PM EDT Pt admitted last night for neutropenic fever to [facility]. He is on cefepime, work up done including blood cultures. Sudha Vuong SENIOR VALIDATION ENGINEER updated. Will have triage check in on him tomorrow and update providers. documented in this encounter Plan of Treatment Upcoming Encounters Date Type Department Care Team ([facility] Contact Info) Description 10/06/2024 9:00 AM EST Office Visit Hematology/Oncology at [address] [phone] Shayla Vuong APRN [facility] [place] [address] 10/06/2024 9:30 AM EST Scheduled View Only Hematology/Oncology at [address] [phone] Ekta Womack RN 10/06/2024 9:30 AM EST Infusion Hematology Oncology at [address] [phone] 10/07/2024 12:30 PM EST Infusion Hematology Oncology at [address] [phone] 10/19/2024 10:00 AM EST Appointment [place] [address] Pia Cooper MD [facility] [place] [address] 10/19/2024 11:00 AM EST Appointment [place] [address] Pia Cooper MD [facility] [place] [address] 2024 9:00 AM EST Office Visit Hematology/Oncology at [address] [phone] Pia Cooper MD [facility] [place] [address] 2024 9:30 AM EST Scheduled View Only Hematology/Oncology at [address] [address] Ekta Womack RN 2024 9:30 AM EST Infusion Hematology Oncology at [address] [address] 11/17/2024 9:00 AM EST Office Visit Hematology/Oncology at [address] [phone] Shayla Vuong, REVIEW ENGINEER [facility] [place] [address] 11/17/2024 9:30 AM EST Scheduled View Only Hematology/Oncology at [address] [address] Ekta Womack RN 11/17/2024 9:30 AM EST Infusion Hematology Oncology at [address] [address] documented as of this encounter Visit Diagnoses Not on filedocumented in this encounter Care Teams Payroll Bookkeeper Relationship Specialty Start Date End Date Danie Connor DO [address] [place] [address] PCP - General Family Medicine 06/04/24 documented as of this encounter
--- OUTSIDE RECORDS SUMMARY | 2024-09-21 22:57 | XMS_ITS | Encounter Summary ---
Author Organization [facility] [place] [address] Care Team Providers Care Ethernet Network Architect Name Role Phone Danie Connor DO Primary Care Provider [phone] Encounter Details Date Type Department Care Team (Late st Contact Info) Description 07/24/2024 Orders [place] [address] Donaldo Jha DO [facility] [address] [address] Social History Tobacco Use Types Packs/Day Years Used Date Smoking Tobacco: Never Smokeless Tobacco: Never Alcohol Use Standard Drinks/Week Comments No 0 (1 standard drink = 0.6 oz pur e alcohol) [facility] Inpatient Questions Answer Date Recorded Prevent Contact [...] Procedure request received through the Interventional Radiology [facility] order queue. Presenting Diagnosis/ Complaint: Brett Campos [...] performed by Dorinda Pastrana MD [facility] MAIN OR Medications: Current Outpatient Medications [...] 9:00 AM EST Office Visit Hematology/Oncology at [address] [phone] Shayla Vuong APRN [facility] DR HEMATOLOGY [place] [address] 10/06/2024 9:30 AM EST Scheduled View Only Hematology/Oncology at [address] [phone] Ekta Womack RN 10/06/2024 9:30 AM EST Infusion Hematology Oncology at [address] [phone] 10/07/2024 12:30 PM EST Infusion Hematology Oncology at [address] [phone] 10/19/2024 10:00 AM EST Appointment [place] [address] Pia Cooper MD [facility] H[place] [address] 10/19/2024 11:00 AM EST Appointment [place] [address] Pia Cooper MD [facility] H[place] [address] 2024 9:00 AM EST Office Visit Hematology/Oncology at [address] [phone] Pia Cooper MD [facility] [place] [address] 2024 9:30 AM EST Scheduled View Only Hematology/Oncology at [address] [phone] Ekta Womack RN 2024 9:30 AM EST Infusion Hematology Oncology at [address] [address] 11/17/2024 9:00 AM EST Office Visit Hematology/Oncology at [address] [phone] Shayla Vuong, RN PHYSICIAN OFFICE [facility] DR HEMAT[place] [address] 11/17/2024 9:30 AM EST Scheduled View Only Hematology/Oncology at [address] [phone] Ekta Womack RN 11/17/2024 9:30 AM EST Infusion Hematology Oncology at [address] [phone] documented as of this encounter Visit Diagnoses Not on filedocumented in this encounter Care Teams Ethernet Network Architect Relationship Specialty Start Date End Date Danie Connor DO [address] [place] [address] PCP - General Family Medicine 06/04/24 documented as of this encounter
--- OUTSIDE RECORDS SUMMARY | 2024-09-21 22:57 | XMS_ITS | Encounter Summary ---
Author Organization [facility] Address [facility] [place] [address] Care Team Providers Care Urology Physician Name Role Phone Danie Connor Primary Care Provider [phone] Encounter Details Date Type Department Care Team [...] 9:00 AM EST Office Visit Hematology/Oncology at [address] [phone] Shayla Vuong APRN [facility] DR HEMATOLOGY [place] [address] 10/06/2024 9:30 AM EST Scheduled View Only Hematology/Oncology at [address] [phone] Ekta Womack RN 10/06/2024 9:30 AM EST Infusion Hematology Oncology at [address] [address] 10/07/2024 12:30 PM EST Infusion Hematology Oncology at [address] [address] 10/19/2024 10:00 AM EST [place] [address] Pia Cooper MD [facility] DR HEMATOLOGY [place] [address] 10/19/2024 11:00 AM EST [place] [address] Pia Cooper MD [facility] DR HEMATOLOGY [place] [address] 2024 9:00 AM EST Office Visit Hematology/Oncology at [address] [address] Pia Cooper MD [facility] HEMATOLOGY [place] [address] 2024 9:30 AM EST Scheduled View Only Hematology/Oncology at [address] [address] Ekta Womack, HUONG 2024 9:30 AM EST Infusion Hematology Oncology at [address] [address] 11/17/2024 9:00 AM EST Office Visit Hematology/Oncology at [address] [address] Shayla Vuong APRN [facility] DR HEMATOLOGY [place] [address] 11/17/2024 9:30 AM EST Scheduled View Only Hematology/Oncology at [address] [address] Ekta Womack RN 11/17/2024 9:30 AM EST Infusion Hematology Oncology at [address] [phone] documented as of this encounter Visit Diagnoses Not on filedocumented in this encounter Care Teams Urology Physician Relationship Specialty Start Date End Date Danie Connor DO [address] [place] [address] PCP - General Family Medicine 06/04/24 documented as of this encounter
--- OUTSIDE RECORDS SUMMARY | 2024-09-21 22:57 | XMS_ITS | Encounter Summary ---
[place] [address] Care Team Providers Care Overnight Babysitter Name Role Phone Danie Connor DO Primary Care Provider [phone] Encounter Details Date Type Department Care Team (Late st Contact Info) Description 07/19/2024 Telephone Hematology [place] [address] Laquita Borden RN Social History [...] - 07/19/2024 11:05 AM EDT Message from administrative secretary: Brett's sister, Breana, called. Patient had a LN biopsy on 06/28 and yesterday his neck swelled up yesterday and is very tender. No fevers but she's afraid something is going on. Please give her a call at: [phone]. documented in this encounter Plan of Treatment Upcoming Encounters Date Type Department Care Team (Late st Contact Info) Description 10/06/2024 9:00 AM EST Office Visit Hematology/Oncology at [address] [address] Shayla Vuong APRN [facility] DR [place] [address] 10/06/2024 9:30 AM EST Scheduled View Only Hematology/Oncology at [address] [address] Ekta Womack RN 10/06/2024 9:30 AM EST Infusion Hematology Oncology at [address] [address] 10/07/2024 12:30 PM EST Infusion Hematology Oncology at [address] [address] 10/19/2024 10:00 AM EST Appointment [place] [address] Pia Cooper MD [facility] [place] [address] 10/19/2024 11:00 AM EST Appointment [place] [address] Pia Cooper MD [facility] [place] [address] 2024 9:00 AM EST Office Visit Hematology/Oncology at [address] [phone] Pia Cooper MD [facility] [place] [address] 2024 9:30 AM EST Scheduled View Only Hematology/Oncology at [address] [phone] Ekta Womack, RN 2024 9:30 AM EST Infusion Hematology Oncology at [address] [phone] 11/17/2024 9:00 AM EST Office Visit Hematology/Oncology at [address] [phone] Shayla Vuong [facility] DR HEMATOLOGY AND ONCOLOGY [place] [phone] 11/17/2024 9:30 AM EST Scheduled View Only Hematology/Oncology at [address] [phone] Ekta Womack, RN 11/17/2024 9:30 AM EST Infusion Hematology Oncology at [address] [phone] documented as of this encounter Visit Diagnoses Not on filedocumented in this encounter Care Teams Overnight Babysitter Relationship Specialty Start Date End Date Danie Connor DO [address] [place] [address] PCP - General Family Medicine 06/04/24 documented as of this encounter
--- OUTSIDE RECORDS SUMMARY | 2024-09-21 22:57 | XMS_ITS | Encounter Summary ---
Author Organization [facility] [place] [address] Care Team Providers Care Mine Supervisor Name Role Phone Connor Danie Bustos Primary Care Provider [phone] Encounter Details Date Type Department Care Team ([facility] Contact Info) Description 08/23/2024 Orders Only Hematology [place] [address] Shayla Vuong APRN [facility] [place] [address] Social History Tobacco Use Types Packs/Day Years Used Date Smoking Tobacco: Never Smokeless Tobacco: Never Alcohol Use Standard Drinks/Week Comments No 0 (1 standard drink = 0.6 oz pur e alcohol) [facility] Inpatient Questions Answer Date Recorded Prevent Contact [...] 9:00 AM EST Office Visit Hematology/Oncology at [address] [address] Shayla Vuong APRN [facility] [place] [address] 10/06/2024 9:30 AM EST Scheduled View Only Hematology/Oncology at [address] [address] Ekta Womack RN 10/06/2024 9:30 AM EST Infusion Hematology Oncology at [address] [address] 10/07/2024 12:30 PM EST Infusion Hematology Oncology at [address] [address] 10/19/2024 10:00 AM EST Appointment [place] [address] Pia Cooper MD [facility] DR [place] [address] 10/19/2024 11:00 AM EST Appoint[place] [address] Pia Cooper MD [facility] DR [place] [address] 2024 9:00 AM EST Office Visit Hematology/Oncology at [address] [address] Pia Cooper MD [facility] DR [place] [address] 2024 9:30 AM EST Scheduled View Only Hematology/Oncology at [address] [address] Ekta Womack RN 2024 9:30 AM EST Infusion Hematology Oncology at [address] [address] 11/17/2024 9:00 AM EST Office Visit Hematology/Oncology at [address] [phone] Shayla Vuong APRN [facility] DR HEMATOLOGY [place] [address] 11/17/2024 9:30 AM EST Scheduled View Only Hematology/Oncology at [address] [phone] Ekta Womack, RN 11/17/2024 9:30 AM EST Infusion Hematology Oncology at [address] [phone] documented as of this encounter Visit Diagnoses Not on filedocumented in this encounter Care Teams Mine Supervisor Relationship Specialty Start Date End Date Danie Connor DO [address] [place] [address] PCP - General Family Medicine 06/04/24 documented as of this encounter
--- OUTSIDE RECORDS SUMMARY | 2024-09-21 22:57 | XMS_ITS | Encounter Summary ---
Author Organization [facility] [place] [address] Care Team Providers Care Surgical Pathologist Name Role Phone Connor Danie Bustos Primary Care Provider [phone] Encounter Details Date Type Department Care Team ([facility] Contact Info) Description 07/08/2024 Orders Only Hemat[place] [address] Shayla Vuong APRN [facility] HEMATOLOGY [place] [address] Social History Tobacco Use Types Packs/Day Years Used Date Smoking Tobacco: Never Smokeless Tobacco: Never Alcohol Use Standard Drinks/Week Comments No 0 (1 standard drink = 0.6 oz pur e alcohol) [facility] Inpatient Questions Answer Date Recorded Prevent [...] 9:00 AM EST Office Visit Hematology/Oncology at [address] [address] Shayla Vuong APRN [facility] HEMATOLOGY [place] [address] 10/06/2024 9:30 AM EST Scheduled View Only Hematology/Oncology at [address] [phone] Ekta Womack RN 10/06/2024 9:30 AM EST Infusion Hematology Oncology at [address] [address] 10/07/2024 12:30 PM EST Infusion Hematology Oncology at [address] [address] 10/19/2024 10:00 AM EST Appointment Nuclear [place] [address] Pia Cooper MD [facility] DR HEMATOLOGY [place] [address] 10/19/2024 11:00 AM EST Appointment Nuclear [place] [address] Pia Cooper MD [facility] DR HEMATOLOGY [place] [address] 2024 9:00 AM EST Office Visit Hematology/Oncology at [address] [address] Pia Cooper MD [facility] DR HEMATOLOGY [place] [address] 2024 9:30 AM EST Scheduled View Only Hematology/Oncology at [address] [address] Ekta Womack RN 2024 9:30 AM EST Infusion Hematology Oncology at [address] [address] 11/17/2024 9:00 AM EST Office Visit Hematology/Oncology at [address] [phone] Shayla Vuong APRN [facility] DR HEMATOLOGY [place] [address] 11/17/2024 9:30 AM EST Scheduled View Only Hematology/Oncology at [address] [phone] Ekta Womack, RN 11/17/2024 9:30 AM EST Infusion Hematology Oncology at [address] [phone] documented as of this encounter Visit Diagnoses Not on filedocumented in this encounter Care Teams Surgical Pathologist Relationship Specialty Start Date End Date Danie Connor DO [address] [place] [address] PCP - General Family Medicine 06/04/24 documented as of this encounter
--- OUTSIDE RECORDS SUMMARY | 2024-09-21 22:57 | XMS_ITS | Encounter Summary ---
Author Organization [facility] [place] [address] Care Team Providers Care Cobol Engineer Name Role Phone Danie Connor DO Primary Care Provider [phone] Encounter Details Date Type Department Care Team (Late st Contact Info) Description 08/09/2024 Telephone Hematology Oncology Level 1 [place] [phone] Xena Cheek MD [facility] DR HEMATOLOGY/[place] [address] Social History Tobacco Use Types Packs/Day Years [...] to KHLOE) and other complications such as TEACHER'S ASSISTANT involvement. Counseling on first cycle is typically hard, and body will adjust, particularly he is young and healthy prior to this diagnosis. I encouraged the patient and provided emotional support. Brett said he understands and he appreciates the counseling. Xena Cheek MD Hematology/ Medical Oncology Fellow [facility] Page #[phone] documented in this encounter Plan of Treatment Upcoming Encounters Date Type Department Care Team (Late st Contact Info) Description 10/06/2024 9:00 AM EST Office Visit Hematology/Oncology at [address] [address] Shayla Vuong, [facility] DR [place] [address] 10/06/2024 9:30 AM EST Scheduled View Only Hematology/Oncology at [address] [address] Ekta Womack RN 10/06/2024 9:30 AM EST Infusion Hematology Oncology at [address] [address] 10/07/2024 12:30 PM EST Infusion Hematology Oncology at [address] [address] 10/19/2024 10:00 AM EST Appointment [place] [address] Pia Cooper MD [facility] HEMATOLOGY AND [place] [address] 10/19/2024 11:00 AM EST Appointment Nuclear Medicine at [facility] [place] [address] Pia Cooper MD [facility] HEMATOLOGY [place] [address] 2024 9:00 AM EST Office Visit Hematology/Oncology at [address] [phone] Pia Cooper MD [facility] HEMATOLOGY AND [place] [address] 2024 9:30 AM EST Scheduled View Only Hematology/Oncology at [address] [phone] Ekta Womack, RN 2024 9:30 AM EST Infusion Hematology Oncology at [address] [phone] 11/17/2024 9:00 AM EST Office Visit Hematology/Oncology at [address] [address] Shayla Vuong, VETERINARY PHARMACOLOGIST [facility] HEMATOLOGY [place] [address] 11/17/2024 9:30 AM EST Scheduled View Only Hematology/Oncology at [address] [phone] 24 Ekta Womack, RN 11/17/2024 9:30 AM EST Infusion Hematology Oncology at [address] [phone] documented as of this encounter Visit Diagnoses Not on filedocumented in this encounter Care Teams Cobol Engineer Relationship Specialty Start Date End Date Danie Connor DO [address] [place] [address] PCP - General Family Medicine 06/04/24 documented as of this encounter
--- OUTSIDE RECORDS SUMMARY | 2024-09-21 22:57 | XMS_ITS | Encounter Summary ---
Author Organization [facility] Address [facility] [place] [address] Care Team Providers Care Fiscal Economist Name Role Phone Geeta Danie Juli ORTEGA Primary Care Provider [phone] Reason for Visit * Reason Comments Chemotherapy [id number] * Treatment/Therapy Plan Authorization (Routine) - Authorized [...] 10MG, INJECTION (ADRIAMYCIN) TC CYCLOPHOSPHAMIDE, 100MG (CYTOXAN) [id number] (POLATUZUMAB VEDOTIN-PIIQ) Brett Herr MD [facility] DR HEMATOLOGY [place] [address] Stj Hem Onc Infusion [address] [place] [phone] Referral ID Status Reason Start Date Expiration Date V isits Requested Visits Authorized [id number] Authorized 07/23/2024 07/23/2025 1 104 Encounter Details Date Type Department Care Team (Late st Contact Info) Description 08/05/2024 8:30 AM EDT Infusion Hematology Oncology at [address] [phone] Diffuse large B-cell lymphoma of [...] sister, Ana. OBJECTIVE LAB DATA: [facility]. IV ACCESS: Port accessed in the clinic. Flushes readily with brisk blood return. Pre administration: Chemotherapy orders independently verified for drug name, route, and dosage per patient's height, weight and BSA by Marina Thao, RN & RPH. REACTIONS (DESCRIPTION, TIME, INTERVENTION AND EFFECTIVENESS) None ASSESSMENT Brett was awake, alert and tolerated treatment well. He stated in the last 20 min of the 90 min observation time that he had a slight headache that was located just in his right restoration area. He noticed his hands got a [...] 9:00 AM EST Office Visit Hematology/Oncology at [address] [address] Shayla Vuong APRN [facility] H[place]ATOLOGY [place] [address] 10/06/2024 9:30 AM EST Scheduled View Only Hematology/Oncology at [address] [address] Ekta Womack RN 10/06/2024 9:30 AM EST Infusion Hematology Oncology at [address] [address] 10/07/2024 12:30 PM EST Infusion Hematology Oncology at [address] [address] 10/19/2024 10:00 AM EST Appointment [place] [address] Pia Cooper MD [facility] HEMATOLOGY [place] [address] 10/19/2024 11:00 AM EST Appointment [place] [address] Pia Cooper MD [facility] [place] [address] 2024 9:00 AM EST Office Visit Hematology/Oncology at [address] [phone] Pia Cooper MD [facility] HEMATOLOGY [place] [address] 2024 9:30 AM EST Scheduled View Only Hematology/Oncology at [address] [phone] Ekta Womack RN 2024 9:30 AM EST Infusion Hematology Oncology at [address] [phone] 11/17/2024 9:00 AM EST Office Visit Hematology/Oncology at [address] [phone] Shayla Vuong APRN [facility] HEMATOLOGY [place] [address] 11/17/2024 9:30 AM EST Scheduled View Only Hematology/Oncology at [address] [phone] Ekta Womack RN 11/17/2024 9:30 AM EST Infusion Hematology Oncology at [address] [phone] documented as of this encounter Visit Diagnoses [...] mL/hr documented in this encounter Care Teams Fiscal Economist Relationship Specialty Start Date End Date Danie Connor DO [address] [place] [address] PCP - General Family Medicine 06/04/24 documented as of this encounter
--- OUTSIDE RECORDS SUMMARY | 2024-09-21 22:57 | XMS_ITS | Encounter Summary ---
Author Organization [facility] [place] [address] Care Team Providers Care Plastics Patternmaker Name Role Phone ConnorDanie willis Primary Care Provider [phone] Encounter Details Date Type Department Care Team (Late Contact Info) Description 08/03/2024 Orders Only Hematology [place] [address] Brett Herr MD [facility] DR HEMATOLOGY [place] [address] Social History Tobacco Use Types Packs/Day Years Used Date Smoking Tobacco: Never Smokeless Tobacco: Never Alcohol Use Standard Drinks/Week Comments No 0 (1 standard drink = 0.6 oz pur e alcohol) [facility] Inpatient Questions Answer Date Recorded Prevent [...] 9:00 AM EST Office Visit Hematology/Oncology at [address] [address] Shayla Vuong APRN [facility] DR HEMATOLOGY [place] [address] 10/06/2024 9:30 AM EST Scheduled View Only Hematology/Oncology at [address] [address] Ekta Womack RN 10/06/2024 9:30 AM EST Infusion Hematology Oncology at [address] [address] 10/07/2024 12:30 PM EST Infusion Hematology Oncology at [address] [address] 10/19/2024 10:00 AM EST Appointment [place] [address] Pia Cooper MD [facility] DR HEMATOLOG[place] [address] 10/19/2024 11:00 AM EST Appointment [place] [address] Pia Cooper MD [facility] DR HEMATOLOG[place] [address] 2024 9:00 AM EST Office Visit Hematology/Oncology at [address] [address] Pia Cooper MD [facility] DR HEMATOLOG[place] [address] 2024 9:30 AM EST Scheduled View Only Hematology/Oncology at [address] [address] Ekta Womack RN 2024 9:30 AM EST Infusion Hematology Oncology at [address] [address] 11/17/2024 9:00 AM EST Office Visit Hematology/Oncology at [address] [phone] Shayla Vuong APRN [facility] DR HEMATOLOGY [place] [address] 11/17/2024 9:30 AM EST Scheduled View Only Hematology/Oncology at [address] [phone] Ekta Womack, RN 11/17/2024 9:30 AM EST Infusion Hematology Oncology at [address] [phone] documented as of this encounter Visit Diagnoses Not on filedocumented in this encounter Care Teams Plastics Patternmaker Relationship Specialty Start Date End Date Danie Connor DO [address] [place] [address] PCP - General Family Medicine 06/04/24 documented as of this encounter
--- OUTSIDE RECORDS SUMMARY | 2024-09-21 22:58 | XMS_ITS | Encounter Summary ---
Author Organization [facility] [place] [address] Care Team Providers Care Concaving Machine Operator Name Role Phone Jose Manuel Kimble MD Primary Care Provider [phone] Reason for Visit * Reason Onset Date Comments Medication Problem 11/16/2020 Encounter Details Date Type Department Care Team (Late st Contact Info) Description 11/16/2020 [place] [phone] Kwabena Garcia MD [facility] [place] [address] Social History Tobacco Use Types Packs/Day Years [...] Dr. Garcia to sign Will also ask medical secretary receptionist to fax last office note to PCP as requested * Telephone Encounter - Caitlin Payton - 11/16/2020 1:23 PM EST Call Center / Saddle Cutter Message - General Issue Call Provider patient sees in Clinic: Dr. Garcia Caller and relationship (if other than patient-full name): [facility] Call back number: [phone] Ok to leave a message: Yes Reason for call: Elenita called asking if they can get the visit note from 08/17/2020 faxed to them at [phone]. She also wanted to let the provider [...] 9:00 AM EST Office Visit Hematology/Oncology at [address] [phone] Shayla Vuong APRN [facility] HEMATOLOGY [place] [address] 10/06/2024 9:30 AM EST Scheduled View Only Hematology/Oncology at [address] [phone] Ekta Womack RN 10/06/2024 9:30 AM EST Infusion Hematology Oncology at [address] [address] 10/07/2024 12:30 PM EST Infusion Hematology Oncology at [address] [address] 10/19/2024 10:00 AM EST Appointment [place] [address] Pia Cooper MD [facility] HEMATOLOGY [place] [address] 10/19/2024 11:00 AM EST Appointment [place] [address] Pia Cooper MD [facility] HEMATOLOGY [place] [address] 2024 9:00 AM EST Office Visit Hematology/Oncology at [address] [phone] Pia Cooper MD [facility] DR HEMATOLOGY [place] [address] 2024 9:30 AM EST Scheduled View Only Hematology/Oncology at [address] [phone] 13 Ekta Womack, RN 2024 9:30 AM EST Infusion Hematology Oncology at [address] [address] 11/17/2024 9:00 AM EST Office Visit Hematology/Oncology at [address] [phone] Shayla Vuong IMPROVEMENT MANAGER [facility] DR HEMATOLOGY [place] [address] 11/17/2024 9:30 AM EST Scheduled View Only Hematology/Oncology at [address] [address] Ekta Womack, RN 11/17/2024 9:30 AM EST Infusion Hematology Oncology at [address] [address] documented as of this encounter Visit Diagnoses Not on filedocumented in this encounter Care Teams Concaving Machine Operator Relationship Specialty Start Date End Date Jose Manuel Kimble MD PCP - General Family Medicine 09/20/15 09/29/23 documented as of this encounter
--- OUTSIDE RECORDS SUMMARY | 2024-09-21 22:58 | XMS_ITS | Encounter Summary ---
Author Organization [facility] [place] [address] Care Team Providers Care E Commerce Merchandising Coordinator Name Role Phone Geeta Danie Bustos Primary Care Provider [phone] Encounter Details Date Type Department Care Team (Late Contact Info) Description 06/04/2024 External [place] [phone] Provider, Scanning Social History Tobacco Use Types [...] 9:00 AM EST Office Visit Hematology/Oncology at [address] [phone] Shayla Vuong [employer] OFFBEARER [facility] DR HEMATOLOGY [place] [address] 10/06/2024 9:30 AM EST Scheduled View Only Hematology/Oncology at [address] [phone] Ekta Womack RN 10/06/2024 9:30 AM EST Infusion Hematology Oncology at [address] [phone] 10/07/2024 12:30 PM EST Infusion Hematology Oncology at [address] [address] 10/19/2024 10:00 AM EST Appointment [place] [address] Pia Cooper MD [facility] DR HEMATOLOGY [place] [address] 10/19/2024 11:00 AM EST Appointment [place] [address] Pia Cooper MD [facility] DR HEMATOLOGY [place] [address] 2024 9:00 AM EST Office Visit Hematology/Oncology at [address] [phone] Pia Cooper MD [facility] DR HEMATOLOGY [place] [address] 2024 9:30 AM EST Scheduled View Only Hematology/Oncology at [address] [address] Ekta Womack, RN 2024 9:30 AM EST Infusion Hematology Oncology at [address] [address] 11/17/2024 9:00 AM EST Office Visit Hematology/Oncology at [address] [address] Shayla Vuong, CLEMENTE [facility] DR HEMATOLOGY [place] [address] 11/17/2024 9:30 AM EST Scheduled View Only Hematology/Oncology at [address] [address] Ekta Womack RN 11/17/2024 9:30 AM EST Infusion Hematology Oncology at [address] [phone] documented as of this encounter Procedures Procedure Name Priority Date/Time Associated Diagnosis Comments SURGICAL PATHOLOGY SCAN Routine 06/04/2024 documented in this encounter Results * Scan Doc: Surgical Pathology (06/04/2024) Historical Provider MD HUYNH MGR SCAN EX T ORDR/RSLT documented in this encounter Visit Diagnoses Not on filedocumented in this encounter Care Teams E Commerce Merchandising Coordinator Relationship Specialty Start Date End Date Danie Connor DO [address] [place] [address] PCP - General Family Medicine 06/04/24 documented as of this encounter
--- OUTSIDE RECORDS SUMMARY | 2024-09-21 22:58 | XMS_ITS | Encounter Summary ---
[place] [address] Care Team Providers Care Engineering Systems Analyst Name Role Phone Jose Manuel Kimble MD Primary Care Provider [phone] Encounter Details Date Type Department Care Team (Late st Contact Info) Description 02/21/2021 9:00 AM EDT [place] [address] Heydi Sanchez MD [facility] [place] [address] Refractory epilepsy; Memory loss; Abnormal urination; Other [...] Sanchez MD - 02/21/2021 9:00 AM EDT [facility] [place] [address] Re - Brett Campos 1975 PCP - [...] Epilepsy Type/Syndrome: LRE, 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 Family Hx: No epilepsy MRI: [facility] Oct 2015 left [facility] Video EE11/24/15 1. 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 Presently he works at [employer]. , no T/A/I, eating CBD chocolates *Seizure Control: QEpilepsy 02/21/2021 Last seizure was: Within past year Were seizures disabling? 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 Heydi Sanchez MD [facility] Neurology Total time associated with this visit was 40 minutes which was spent reviewing records, obtaining history and physical, counseling, coordination of care and documentation as described above. documented in this encounter Plan of Treatment Upcoming Encounters Date Type Department Care Team (Late st Contact Info) Description 10/06/2024 9:00 AM EST Office Visit Hematology/Oncology at [address] [phone] Shayla Vuong APRN [facility] [place] [address] 10/06/2024 9:30 AM EST Scheduled View Only Hematology/Oncology at [address] [phone] Ekta Womack RN 10/06/2024 9:30 AM EST Infusion Hematology Oncology at [address] [address] 10/07/2024 12:30 PM EST Infusion Hematology Oncology at [address] [address] 10/19/2024 10:00 AM EST Appointment [place] [address] Pia Cooper MD [facility] [place] [address] 10/19/2024 11:00 AM EST Appointment [place] [address] Pia Cooper MD [facility] [place] [address] 2024 9:00 AM EST Office Visit Hematology/Oncology at [address] [address] Pia Cooper MD [facility] [address] [place] [address] 2024 9:30 AM EST Scheduled View Only Hematology/Oncology at [address] [address] Ekta Womack, RN 2024 9:30 AM EST Infusion Hematology Oncology at [address] [address] 11/17/2024 9:00 AM EST Office Visit Hematology/Oncology at [address] [address] Shayla Vuong APRN [facility] DR [place] [address] 11/17/2024 9:30 AM EST Scheduled View Only Hematology/Oncology at [address] [phone] Ekta Womack, RN 11/17/2024 9:30 AM EST Infusion Hematology Oncology at [address] [phone] documented as of this encounter Visit Diagnoses Diagnosis 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
--- OUTSIDE RECORDS SUMMARY | 2024-09-21 22:58 | XMS_ITS | Encounter Summary ---
Author Organization [facility] [place] [address] Care Team Providers Care Financial Coordinator Name Role Phone Unknown Primary Care Provider Unavailabl e Encounter Details Date Type Department Care Team (Late Contact Info) Description 05/19/2024 Interpretation Only Radiology Library at [facility] [place] [address] [place] Social History Tobacco Use Types [...] 9:00 AM EST Office Visit Hematology/Oncology at [address] [phone] Shayla Vuong APRN [facility] HEMATOLOGY [place] [address] 10/06/2024 9:30 AM EST Scheduled View Only Hematology/Oncology at [address] [phone] Ekta Womack RN 10/06/2024 9:30 AM EST Infusion Hematology Oncology at [address] [phone] 10/07/2024 12:30 PM EST Infusion Hematology Oncology at [address] [address] 10/19/2024 10:00 AM EST Appointment [place] [address] Pia Cooper MD [facility] DR [place]AT[place] [address] 10/19/2024 11:00 AM EST Appointment [place] [address] Pia Cooper MD [facility] DR HEMATOLOG[place] [address] 2024 9:00 AM EST Office Visit Hematology/Oncology at [address] [address] Pia Cooper MD [facility] [place] [address] 2024 9:30 AM EST Scheduled View Only Hematology/Oncology at [address] [address] Ekta Womack RN 2024 9:30 AM EST Infusion Hematology Oncology at [address] [address] 11/17/2024 9:00 AM EST Office Visit Hematology/Oncology at [address] [address] Shayla Vuong APRN [facility] DR HEMATOLOGY [place] [address] 11/17/2024 9:30 AM EST Scheduled View Only Hematology/Oncology at [address] [address] Ekta Womack RN 11/17/2024 9:30 AM EST Infusion Hematology Oncology at [address] [address] documented as of this encounter Procedures Procedure Name Priority Date/Time Associated Diagnosis Comments FILM LIBRARY STORAGE ONLY ULTRASOUND STUDY Routine 05/19/2024 1:00 PM EDT documented in this encounter Results * Film Library- Storage Only Ultrasound Study (05/19/2024 1:00 PM EDT) 05/28/2024 5:56 AM EDT Narrative POLO FRITZ - 05/28/2024 5:56 AM EDT This exam is auto-finalizing. It's purpose is for storage only. [place] Lisa FILM LIBRARY ORD ERABLES Performing Organization Address City/State/[facility] Co de Phone Number [facility] [place], [place] documented in this encounter Visit Diagnoses Not on filedocumented in this encounter Care Teams Financial Coordinator Relationship Specialty Start Date End Date Unknown None PCP - General 09/30/23 06/03/24 documented as of this encounter
--- OUTSIDE RECORDS SUMMARY | 2024-09-21 22:58 | XMS_ITS | Encounter Summary ---
Author Organization [facility] [address] Care Team Providers Care Sales Team Manager Name Role Phone ConnorDanie Primary Care Provider [phone] Encounter Details Date Type Department Care Team [...] 9:00 AM EST Office Visit Hematology/Oncology at [address] [phone] Shayla Vuong APRN [facility] DR HEMATOLOGY [place] [address] 10/06/2024 9:30 AM EST Scheduled View Only Hematology/Oncology at [address] [phone] Ekta Womack RN 10/06/2024 9:30 AM EST Infusion Hematology Oncology at [address] [phone] 10/07/2024 12:30 PM EST Infusion Hematology Oncology at [address] [phone] 10/19/2024 10:00 AM EST Appointment [place] [address] Pia Cooper MD [facility] DR HEMATOLOGY [place] [address] 10/19/2024 11:00 AM EST Appointment [place] [address] Pia Cooper MD [facility] DR HEMATOLOGY [place] [address] 2024 9:00 AM EST Office Visit Hematology/Oncology at [address] [address] Pia Cooper MD [facility] DR HEMATOLOGY [place] [address] 2024 9:30 AM EST Scheduled View Only Hematology/Oncology at [address] [phone] Ekta Womack RN 2024 9:30 AM EST Infusion Hematology Oncology at [address] [address] 11/17/2024 9:00 AM EST Office Visit Hematology/Oncology at [address] [phone] Shayla Vuong APRN [facility] DR HEMATOLOGY [place] [address] 11/17/2024 9:30 AM EST Scheduled View Only Hematology/Oncology at [address] [phone] Ekta Womack RN 11/17/2024 9:30 AM EST Infusion Hematology Oncology at [address] [phone] documented as of this encounter Visit Diagnoses Not on filedocumented in this encounter Care Teams Sales Team Manager Relationship Specialty Start Date End Date Danie Connor DO [address] [place] [phone] PCP - General Family Medicine 06/04/24 documented as of this encounter
--- OUTSIDE RECORDS SUMMARY | 2024-09-21 22:58 | XMS_ITS | Encounter Summary ---
Author Organization [facility] [place] [address] Care Team Providers Care Rivet Tapping Machine Operator Name Role Phone ConnorDanie willis Primary Care Provider [phone] Encounter Details Date Type Department Care Team (Late Contact Info) Description 06/15/2024 Orders [place] [address] Dorinda Pastrana MD [facility] [place] [address] Lymphoma, unspecified body region, unspecified lymphoma type [...] 9:00 AM EST Office Visit Hematology/Oncology at [address] [phone] Shayla Vuong APRN [facility] DR HEMATOLOGY [place] [address] 10/06/2024 9:30 AM EST Scheduled View Only Hematology/Oncology at [address] [address] Ekta Womack RN 10/06/2024 9:30 AM EST Infusion Hematology Oncology at [address] [address] 10/07/2024 12:30 PM EST Infusion Hematology Oncology at [address] [address] 10/19/2024 10:00 AM EST Appointment [place] [address] Pia Cooper MD [facility] DR HEMATOLOGY [place] [address] 10/19/2024 11:00 AM EST Appointment [place] [address] Pia Cooper MD [facility] DR HEMATOLOGY [place] [address] 2024 9:00 AM EST Office Visit Hematology/Oncology at [address] [address] Pia Cooper MD [facility] DR HEMATOLOGY [place] [address] 2024 9:30 AM EST Scheduled View Only Hematology/Oncology at [address] [address] Ekta Womack RN 2024 9:30 AM EST Infusion Hematology Oncology at [address] [address] 11/17/2024 9:00 AM EST Office Visit Hematology/Oncology at [address] [address] Shayla Vuong APRN [facility] DR HEMATOLOGY [place] [address] 11/17/2024 9:30 AM EST Scheduled View Only Hematology/Oncology at [address] [phone] Ekta Womack RN 11/17/2024 9:30 AM EST Infusion Hematology Oncology at [address] [phone] documented as of this encounter Visit Diagnoses Diagnosis Lymphoma, unspecified body region, unspecified lymphoma type documented in this encounter Care Teams Rivet Tapping Machine Operator Relationship Specialty Start Date End Date Danie Connor DO [address] [place] [address] PCP - General Family Medicine 06/04/24 documented as of this encounter
--- OUTSIDE RECORDS SUMMARY | 2024-09-21 22:58 | XMS_ITS | Encounter Summary ---
[place] [address] Care Team Providers Care Rf Engineer Name Role Phone Jose Manuel Kimble MD Primary Care Provider [phone] Reason for Visit * Reason Onset Date Comments TeleHealth 03/20/2021 Encounter Details Date Type Department Care Team (Late Contact Info) Description 03/20/2021 Telephone [place] [phone] Heydi Sanchez MD [facility] [place] [address] TeleHealth Social History Tobacco Use Types Packs/Day [...] 9:00 AM EST Office Visit Hematology/Oncology at [address] [address] Shayla Vuong APRN [facility] DR HEMATOLOGY [place] [address] 10/06/2024 9:30 AM EST Scheduled View Only Hematology/Oncology at [address] [address] Ekta Womack, RN 10/06/2024 9:30 AM EST Infusion Hematology Oncology at [address] [address] 10/07/2024 12:30 PM EST Infusion Hematology Oncology at [address] [phone] 10/19/2024 10:00 AM EST Appointment [place] [address] Pia Cooper MD [facility] DR HEMATOLOGY [place] [address] 10/19/2024 11:00 AM EST Appointment [place] [address] Pia Cooper MD [facility] DR HEMATOLOGY [place] [address] 2024 9:00 AM EST Office Visit Hematology/Oncology at [address] [address] Pia Cooper MD [facility] DR HEMATOLOGY [place] [address] 2024 9:30 AM EST Scheduled View Only Hematology/Oncology at [address] [address] Ekta Womack, RN 2024 9:30 AM EST Infusion Hematology Oncology at [address] [phone] 11/17/2024 9:00 AM EST Office Visit Hematology/Oncology at [address] [phone] Shayla Vuong APRN [facility] DR HEMATOLOGY [place] [address] 11/17/2024 9:30 AM EST Scheduled View Only Hematology/Oncology at [address] [phone] Ekta Womack RN 11/17/2024 9:30 AM EST Infusion Hematology Oncology at [address] [phone] documented as of this encounter Visit Diagnoses Not on filedocumented in this encounter Care Teams Rf Engineer Relationship Specialty Start Date End Date Jose Manuel Kimble MD PCP - General Family Medicine 09/20/15 09/29/23 documented as of this encounter
--- OUTSIDE RECORDS SUMMARY | 2024-09-21 22:58 | XMS_ITS | Encounter Summary ---
Author Organization [facility] [place] [address] Care Team Providers Care Adult Daycare Coordinator Name Role Phone Jose Manuel Kimble MD Primary Care Provider [phone] Reason for Visit * Reason Onset Date Comments Medication Problem 11/17/2020 Encounter Details Date Type Department Care Team (Late st Contact Info) Description 11/17/2020 [place]phone [place] [phone] Kwabena Garcia MD [facility] [place] [address] Medication Problem Social History Tobacco Use Types [...] 11/17/2020 2:42 PM EST Call Center / Market Research Interviewer Message - Medication Issue (Not to be used for refill request or medication prior auth request) Provider patient sees in Clinic: KATERYNA Caller and relationship (if other than patient-full name): pt Call Back Number: [phone] Ok to leave a message: y Reason [...] AM EST Office Visit Hematology/Oncology at [address] [address] Shayla Vuong APRN [facility] DR HEMATOLOGY [place] [address] 10/06/2024 9:30 AM EST Scheduled View Only Hematology/Oncology at [address] [address] Ekta Womack RN 10/06/2024 9:30 AM EST Infusion Hematology Oncology at [address] [address] 10/07/2024 12:30 PM EST Infusion Hematology Oncology at [address] [address] 10/19/2024 10:00 AM EST Appointment [place] [address] Pia Cooper MD [facility] HEMATOLOGY [place] [address] 10/19/2024 11:00 AM EST Appointment [place] [address] Pia Cooper MD [facility] DR HEMATOLOGY [place] [address] 2024 9:00 AM EST Office Visit Hematology/Oncology at [address] [phone] Pia Cooper MD [facility] DR HEMATOLOGY [place] [address] 2024 9:30 AM EST Scheduled View Only Hematology/Oncology at [address] [phone] Ekta Womack, RN 2024 9:30 AM EST Infusion Hematology Oncology at [address] [phone] 11/17/2024 9:00 AM EST Office Visit Hematology/Oncology at [address] [phone] Shayla Vuong APRN [facility] HEMATOLOGY [place] [address] 11/17/2024 9:30 AM EST Scheduled View Only Hematology/Oncology at [address] [phone] Ekta Womack, RN 11/17/2024 9:30 AM EST Infusion Hematology Oncology at [address] [phone] documented as of this encounter Visit Diagnoses Not on filedocumented in this encounter Care Teams Adult Daycare Coordinator Relationship Specialty Start Date End Date Jose Manuel Kimble MD PCP - General Family Medicine 09/20/15 09/29/23 documented as of this encounter
--- OUTSIDE RECORDS SUMMARY | 2024-09-21 22:58 | XMS_ITS | Encounter Summary ---
Author Organization [facility] [place] [address] Care Team Providers Care English Composition Teacher Name Role Phone Jose Manuel Kimble MD Primary Care Provider [phone] Reason for Visit * Reason Comments Medication Refill Encounter Details Date Type Department Care Team (Late Contact Info) Description 08/23/2021 Refill [place] [address] Heydi Sanchez MD [facility] [place] [place] [address] Refractory epilepsy Social History Tobacco Use Types [...] AM EST Office Visit Hematology/Oncology at [address] [phone] Shayla Vuong APRN [facility] [place] [address] 10/06/2024 9:30 AM EST Scheduled View Only Hematology/Oncology at [address] [phone] Ekta Womack, RN 10/06/2024 9:30 AM EST Infusion Hematology Oncology at [address] [address] 10/07/2024 12:30 PM EST Infusion Hematology Oncology at [address] [address] 10/19/2024 10:00 AM EST Appointment [place] [address] Pia Cooper MD [facility] [place] [address] 10/19/2024 11:00 AM EST Appointment [place] [address] Pia Cooper MD [facility] [place] [address] 2024 9:00 AM EST Office Visit Hematology/Oncology at [address] [phone] Pia Cooper MD [facility] [place] [address] 2024 9:30 AM EST Scheduled View Only Hematology/Oncology at [address] [address] Ekta Womack RN 2024 9:30 AM EST Infusion Hematology Oncology at [address] [address] 11/17/2024 9:00 AM EST Office Visit Hematology/Oncology at [address] [address] Shayla Vuong APRN [facility] DR [place] [address] 11/17/2024 9:30 AM EST Scheduled View Only Hematology/Oncology at [address] [phone] Ekta Womack RN 11/17/2024 9:30 AM EST Infusion Hematology Oncology at [address] [phone] documented as of this encounter Visit Diagnoses Diagnosis Refractory epilepsy Unspecified epilepsy with intractable epilepsy documented in this encounter Care Teams English Composition Teacher Relationship Specialty Start Date End Date Jose Manuel Kimble MD PCP - General Family Medicine 09/20/15 09/29/23 documented as of this encounter
--- OUTSIDE RECORDS SUMMARY | 2024-09-21 22:58 | XMS_ITS | Encounter Summary ---
[facility] Organization [facility] [place] [address] Care Team Providers Care Manager Medicare Name Role Phone Geeta Danie Juli ORTEGA Primary Care Provider + [phone] Reason for Visit * Auth/Cert (Routine) Specialty Diagnoses / Procedures Referred By Kymberly t Referred To Contact Diagnoses Lymphoma, unspecified body region, unspecified lymphoma type right submandibular lymphadenopathy Procedures PRO BIOPSY/EXCISION LYMPH NODE OPEN SUPERFICIAL BIOPSY OR EXCISION OF LYMPH NODE(S), OPEN, SUPERFICIAL (WRVU 3.79) Dorinda Pastrana MD [facility] [place] [address] [facility] Referral ID Status Reason Start Date Expiration Date Visits Re quested Visits Authorized [id number] 1 1 Encounter Details Date Type Department Care Team (Late st Contact Info) Description 06/28/2024 9:16 AM EDT - 06/28/2024 11:16 AM EDT Surgery [place] [address] Dorinda Pastrana MD [facility] [place] [address] BIOPSY OR EXCISION OF LYMPH NODE(S), OPEN, [...] Pastrana's office with any questions or concerns: [phone] documented in this encounter Medications at Time [...] 06/28/2024 9:[address] [facility] Operative Note Patient Name: Brett Campos : [id number] MR#: [id number] Case Date: 06/28/2024 Surgeon: Surgeons and Role: [...] This was injected with 1% lidocaine with [id number] epinephrine. Incision was made and subplatysmal flap [...] AM EST Office Visit Hematology/Oncology at [address] [phone] Sh[facility]la VuongCLEMENTE [facility] HEMATOLOGY [place] [address] 10/06/2024 9:30 AM EST Scheduled View Only Hematology/Oncology at [address] [phone] Ekta Womack RN 10/06/2024 9:30 AM EST Infusion Hematology Oncology at [address] [phone] 10/07/2024 12:30 PM EST Infusion Hematology Oncology at [address] [phone] 10/19/2024 10:00 AM EST Appointment [place] [address] Pia Cooper MD [facility] DR HEMATOLOGY [place] [address] 10/19/2024 11:00 AM EST Appointment [place] [address] Pia Cooper MD [facility] DR HEMAT[place] [address] 2024 9:00 AM EST Office Visit Hematology/Oncology at [address] [phone] Pia Cooper MD [facility] [place] [address] 2024 9:30 AM EST Scheduled View Only Hematology/Oncology at [address] [phone] Ekta Womack RN 2024 9:30 AM EST Infusion Hematology Oncology at [address] [phone] 11/17/2024 9:00 AM EST Office Visit Hematology/Oncology at [address] [phone] Shayla Vuong APRN [facility] [place] [address] 11/17/2024 9:30 AM EST Scheduled View Only Hematology/Oncology at [address] [phone] Ekta Womack RN 11/17/2024 9:30 AM EST Infusion Hematology Oncology at [address] [phone] documented as of this encounter Procedures Procedure [...] AM EDT Biopsy/Excision Lymph Node Open Superficial (17829) Yes 06/28/2024 8:51 AM EDT Lymphoma, unspecified body region, unspecified lymphoma type BIOPSY OR EXCISION OF LYMPH NODE(S),OPEN,SUPERFICIAL Routine 06/28/2024 7:44 AM EDT Lymphoma, unspecified body region, unspecified lymphoma type documented in this encounter Results * chromo report acquired (06/28/2024 9:55 AM EDT) Cytogenetics Acquired Report Final Report ? [id number] Specimen Type: Fixed Tissue Specimen Condition: 1 [...] using dual-color, break-apart probes for BCL6/3q27 rearrangement ([employer] shows 1.0% of 100 cells with a BCL6 rearrangement signal pattern. This is within the acceptable reference limits (0-7.4%). Thus, there is no evidence for BCL6/3q27 gene rearrangement. Interphase FISH analysis using dual-color, break-apart probes for MYC/8q24 rearrangement ([employer] shows 0% of 100 cells with a MYC rearrangement signal pattern. This is within acceptable reference limits (0-6.0%). Thus, there is no evidence for MYC/8q24 gene rearrangement. Interphase FISH analysis using dual-color, dual-fusion probes for MYC-IGH/t(8;14)(q2 4;q32) ([employer] shows 0% of 100 cells with an MYC-IGH rearrangement signal pattern. This is within acceptable reference limits (0-3.0%). Thus, there is no evidence for MYC-IGH/t(8;14) gene rearrangement. Interphase FISH analysis using dual-color, dual-fusion probes for CCND1-IGH/t(11;14) (q13;q32) ([employer] shows 0% of 100 cells with an CCND1-IGH rearrangement signal pattern. This is within acceptable reference limits (0-3.0%). Thus, there is no evidence for CCND1-IGH/t(11;14) gene rearrangement. Interphase FISH analysis using dual-color, break-apart probes for BCL2/18q21 rearrangement ([employer] shows 0% of 100 cells with BCL2 rearrangement signal pattern. This is within acceptable reference limits (0-6.0%). Thus, there is no evidence for BCL2/18q21 gene rearrangement. ---Recommendation- -- Correlation with clinical and pathological studies is suggested. ---Limitations & Disclaimers--- The FISH test was developed and its performance characteristics were determined by the [facility] ([facility]) Cytogenetics Laboratory as required by The Clinical [...] accuracy and precision. The [facility] Cytogenetics Laboratory is certified under the CLIA? 88 as qualified to perform high complexity clinical laboratory testing. Chromosome alterations outside the regions complementary to these DNA FISH probes will not be detected. 07.11.24 (Electronic Signature) Verified By: Cheri Ph.D., [facility] A Clinical Account Review Specialist/Mol ecular Beater Worker Helper [facility] 06/28/2024 9:55 AM EDT 06/30/2024 11:19 AM EDT Dorinda Pastrana MD HEMATOLOGY ORDERABLE S [facility] [place] [address] * (ABNORMAL) Surgical Pathology Report (06/28/2024 9:55 AM EDT) Surgical Pathology Report [id number] ? Location: [facility]; A The signing pathologist has (i) examined the relevant preparation(s) for the specimen(s) and (ii) rendered or confirmed the diagnosis(es). . ?Surgical Pathology DIAGNOSIS A - Right submandibular mass - ??Diffuse large B-cell lymphoma- NOS (See Discussion) Electronically signed by: ?Shira SALAS, Henry Verified: ??06/30/2024 17:09 ??Hematopathologist Performed at: ??-[facility] Dept. of Pathology, [place] [address] Global Regulatory Lead: Jami Garza MD, AP, ??CLIA Certificate: [id number] SYNOPTIC THIS RESULT REQUIRES PHYSICIAN/A.P.P. FOLLOW UP DISCUSSION The submandibular mass contains a diffuse proliferation ? of large abnormal lymphocytes with vesicular nuclear chromatin, prominent nucleoli and ample cytoplasm. Lymph nodes submitted with the mass show partial involvement. ? Flow cytometry ([id number]) ?? showed a CD10+ kappa immunoglobulin light [...] diagnostic tests. Morphologic appearance : ?DLBCL like Jkpi-ay-bwsddc classification : ?? Germinal center BCl2/MYC double-expressor [...] lymphoid neoplasms . Blood . 2016. 127 (20):1176-8282. Troy CP et al . Blood 103:275-282 [...] flow cytometry. Tissue is submitted to cytogenetics. Material Handling Supervisor sections in 5 cassettes labeled A1-A5. A1-A3: Material Handling Supervisor fleshy tissue A4: Single bisected possible lymph node A5: Single bisected possible lymph node ??jnr(A) [facility] AP Specimen 06/28/2024 9:55 AM EDT Dorinda Pastrana MD PATHOLOGY/CYTOLOGY O RDERABLES [facility] [place] [address] * Specimen to Pathology (06/28/2024 9:55 AM EDT) AP Specimen 06/28/2024 9:55 AM EDT 06/28/2024 9:[address] [facility] - 06/28/2024 9:55 AM EDT Specimen requisition ordered. ??Separate Pathology report to follow Dorinda Pastrana MD PATHOLOGY/CYTOLOGY O RDERABLES Performing Organization Address [facility]/ZIP Co de Phone Number [facility] [place] [address] * chromo report acquired (06/28/2024 9:30 AM EDT) Cytogenetics Acquired Report Final Report ? [id number] Specimen Type: Lymph Node Specimen Condition: ~1.4cm, x1.4cm, x1.8cm, adequate Collection Date/Time: 06/28/2024 09:30 Received Date/Time: 06/28/2024 11:31 Indication: ??Lymphoma ---Results--- Please see the chromosome analysis scanned report in eD-H corresponding to this specimen. ??This report was completed by [facility] and is located in 'Chart Review' under the 'Media' tab. ??The document name is titled External Genetic Study. ---Karyotype--- See comments. ---Preparation-- - Culture Type: Other FISH Method: ??N/A ---Comments--- The specimen was referred to [facility] ([place], [place], Tel: ?? ) for cytogenetic analysis. ---Disclaimer--- Please note that the above is not a patient lab result and does not have an interpretative component. ??It is only provided to indicate the location of the final report in the EMR for this individual, which has the official interpretations. 08..24 (Electronic Signature) Verified By: Lab Review, Cytogenetics [facility] 06/28/2024 9:30 AM EDT 06/28/2024 11:31 AM EDT Dorinda Pastrana MD HEMATOLOGY ORDERABLE S Performing Organization Address City/[facility]/ZIP Co de Phone Number [facility] [place] [address] * Flow Cytometry Report (06/28/2024 9:30 AM EDT) Flow Cytometry Report [id number] ? Location: [facility]; A The signing pathologist has (i) examined the relevant preparation(s) for the specimen(s) and (ii) rendered or confirmed the diagnosis(es). . ?Flow Cytometry DIAGNOSIS Flow cytometry diagnosis: CD10+ ??kappa immunoglobulin light chain restricted B-cell population identified. see discussion Electronically signed by: ?Shira SALAS, Henry Verified: ??06/29/2024 14:16 ??Hematopathologist Performed at: ??-[facility] Dept. of Pathology, [place] [address] Global Regulatory Lead: Jami Garza MD, FCAP, ??CLIA Certificate: [id number] DISCUSSION Cell viability was 84% as assessed [...] by the Clinical Flow Cytometry Laboratory at [facility]. It has not been [...] high complexity clinical laboratory testing. SPECIMEN PROCESSING [id number] Cells for immunophenotypic analysis were derived from right submandibular mass. CD45 vs side scatter gating was utilized to identify a lymphoid analysis region that comprises approximately 87-89% of all cells. The following markers were assessed: CD2, CD3, CD4, CD5, CD7, CD8, CD10, CD19, CD20, CD23, CD38, CD45, CD56, FMC-7, kappa light chain, and lambda light chain. CLINICAL INFORMATION adenopathy [facility] 06/28/2024 9:30 AM EDT Dorinda Pastrana MD PATHOLOGY/CYTOLOGY O RDERABLES Performing Organization Address [facility] [place] [place] [address] * Immunophenotyping Flow Cytometry (06/28/2024 9:30 AM EDT) Immunophenotyping Flow See Comment [facility] Comment: When completed by the Pathologist, the Flow Cytometry Report ([id number]) will display under the Pathology Results section within eDH. Other Other / Unknown 06/28/2024 9 :30 AM EDT 06/28/2024 10:53 AM EDT Narrative Resulting Agency Comment Spec In Lab Dorinda Pastrana MD HEMATOLOGY ORDERABLE S Performing Organization Address [facility] Co de Phone Number [facility] [place] [address] documented in this encounter Visit Diagnoses Diagnosis [...] MD) documented in this encounter Care Teams Manager Medicare Relationship Specialty Start Date End Date Danie Connor DO [address] [place] [address] PCP - General Family Medicine 06/04/24 documented as of this encounter
--- OUTSIDE RECORDS SUMMARY | 2024-09-21 22:58 | XMS_ITS | Encounter Summary ---
Author Organization [facility] [place] [address] Care Team Providers Care Gas Inspector Name Role Phone Danie Connor DO Primary Care Provider [phone] Reason for Referral * Diagnostic Test (Routine) - Closed Specialty Diagnoses / Procedures Referred By Contfernando t Referred To Contact Cardiology Diagnoses Encounter for echocardiogram before initiation of chemotherapy Lymphoma, unspecified body region, unspecified lymphoma type Procedures Echocardiogram Transthoracic Adriana Wilkins APRN [facility] [place] [address] [facility] [place] [address] Referral ID Status Reason Start Date Expiration Date V isits Requested Visits Authorized [id number] Closed Specialty Service Requested 06/11/2024 08/09/2024 1 1 Encounter Details Date Type Department Care Team (Late st Contact Info) Description 06/11/2024 Orders Only Hematology [place] [address] Adriana Wilkins APRN [facility] [place] [address] Encounter for echocardiogram before initiation [...] AM EST Office Visit Hematology/Oncology at [address] [phone] Adriana Wilkins, PRESIDENT PRACTICING UROLOGIST [facility] [place] [address] 10/06/2024 9:30 AM EST Scheduled View Only Hematology/Oncology at [address] [phone] Ekta Womack RN 10/06/2024 9:30 AM EST Infusion Hematology Oncology at [address] [phone] 10/07/2024 12:30 PM EST Infusion Hematology Oncology at [address] [phone] 10/19/2024 10:00 AM EST Appointment [place] [address] Pia Cooper MD [facility] [place] [address] 10/19/2024 11:00 AM EST Appointment [place] [address] Pia Cooper MD [facility] [place] [address] 2024 9:00 AM EST Office Visit Hematology/Oncology at [address] [phone] Pia Cooper MD [facility] DR [place] [address] 2024 9:30 AM EST Scheduled View Only Hematology/Oncology at [address] [phone] Ekta Womack, RN 2024 9:30 AM EST Infusion Hematology Oncology at [address] [phone] 11/17/2024 9:00 AM EST Office Visit Hematology/Oncology at [address] [phone] Adriana Wilkins APRN [facility] DR [place] [address] 11/17/2024 9:30 AM EST Scheduled View Only Hematology/Oncology at [address] [phone] Ekta Womack, RN 11/17/2024 9:30 AM EST Infusion Hematology Oncology at [address] [phone] documented as of this encounter Results * ECHO COMPLETE (06/24/2024 10:58 AM EDT) Anatomical Region Laterality Modality Cardiac Other 06/24/2024 10:1 5 AM EDT Narrative 06/24/2024 11:10 AM EDT [address] [place] [address] ? Echocardiogram Report Name: MO CAMPOS ? Study Date: 06/24/2024 10:15 AMBP: 130/86 mmHg ? Patient Location: : 1975 ? Height: 173 cm ? Account: [id number] Age: 48 yrs ? Weight: 90 kg Gender: Male ?BSA: 2.0 m2 Ordering Physician: ADRIANA WILKINS Referring Physician: ADRIANA WILKINS Performed By: Clotilde Kaur RDCS Reason For Study: Encounter for echocardiogram before initiation of chemotherapy, Lymphoma Exam Location: [facility]. Interpretation Summary -Left ventricular systolic [...] findings. No comparison study is available. Procedure Complete-[id number]. Left ventricular strain. Satisfactory quality. Left Ventricle [...] Note Júnior Higgins MD - 06/24/2024 [address] [place] [address] Echocardiogram Report Name: MO CAMPOS Study Date: :15 AMBP: 130/86 mmHg Patient Location: : 1975 Height: 173 cm Account: [id number] Age: 48 yrs Weight: 90 kg Gender: Male BSA: 2.0 m2 Ordering Physician: ADRIANA WILKINS Referring Physician: ADRIANA WILKINS Performed By: Clotilde Kaur RDCS Reason For Study: Encounter for echocardiogram before initiation ofchemotherapy, Lymphoma Exam Location: [facility]. Interpretation Summary -Left ventricular systolic [...] findings. No comparison study is available. Procedure Complete-[id number]. Left ventricular strain. Satisfactory quality. Left Ventricle [...] type documented in this encounter Care Teams Gas Inspector Relationship Specialty Start Date End Date Danie Connor DO [address] [place] [address] PCP - General Family Medicine 06/04/24 documented as of this encounter
--- OUTSIDE RECORDS SUMMARY | 2024-09-21 22:58 | XMS_ITS | Encounter Summary ---
[place] [address] Care Team Providers Care Street Light Repairer Helper Name Role Phone Geeta Danie Bustos Primary Care Provider [phone] Reason for Visit * Reason Onset Date Comments Disability Paperwork 06/15/2024 Encounter Details Date Type Department Care Team ([facility] Contact Info) Description 06/15/2024 Telephone [place]ology [place] [phone] Yasmine Styles Disability Paperwork Social History Tobacco [...] 9:00 AM EST Office Visit Hematology/Oncology at [address] [phone] Shayla Vuong APRN [facility] DR HEMATOLOGY [place] [address] 10/06/2024 9:30 AM EST Scheduled View Only Hematology/Oncology at [address] [phone] Ekta Womack RN 10/06/2024 9:30 AM EST Infusion Hematology Oncology at [address] [phone] 10/07/2024 12:30 PM EST Infusion Hematology Oncology at [address] [phone] 10/19/2024 10:00 AM EST Appointment [place] [address] Pia Cooper MD [facility] DR HEMATOLOGY [place] [address] 10/19/2024 11:00 AM EST Appointment [place] [address] Pia Cooper MD [facility] DR HEMATOLOGY [place] [address] 2024 9:00 AM EST Office Visit Hematology/Oncology at [address] [phone] Pia Cooper MD [facility] [place]ATOLOGY [place] [address] 2024 9:30 AM EST Scheduled View Only Hematology/Oncology at [address] [phone] Ekta Womack RN 2024 9:30 AM EST Infusion Hematology Oncology at [address] [phone] 11/17/2024 9:00 AM EST Office Visit Hematology/Oncology at [address] [phone] Shayla Vuong, CLEMENTE [facility] HEMATOLOGY [place] [address] 11/17/2024 9:30 AM EST Scheduled View Only Hematology/Oncology at [address] [phone] Ekta Womack RN 11/17/2024 9:30 AM EST Infusion Hematology Oncology at [address] [phone] documented as of this encounter Visit Diagnoses Not on filedocumented in this encounter Care Teams Street Light Repairer Helper Relationship Specialty Start Date End Date Danie Connor DO [address] [place] [phone] PCP - General Family Medicine 06/04/24 documented as of this encounter
--- OUTSIDE RECORDS SUMMARY | 2024-09-21 22:58 | XMS_ITS | Encounter Summary ---
[place] [address] Care Team Providers Care C D Reactor Operator Name Role Phone Danie Connor DO Primary Care Provider [phone] Reason for Referral * Diagnostic Test (STAT) - Closed Specialty Diagnoses / Procedures Referred By Kymberly penaloza Referred To Contact Radiology Diagnoses Lymphoma, unspecified body region, unspecified lymphoma type Procedures NM PET CT Skull Base to Mid-thigh Brett Herr MD [facility] [address] HEMATOLOGY [place] [address] [place] [address] Referral ID Status Reason Start Date Expiration Date V isits Requested Visits Authorized [id number] Closed Specialty Service Requested 06/11/2024 08/09/2024 1 1 * Consultation (Routine) - Closed Specialty Diagnoses / Procedures Referred By Kymberly penaloza Referred To Contact Otolaryngology Diagnoses Lymphoma, unspecified body region, unspecified lymphoma type may be going right to OR w/ [employer] in the works Brett Herr MD [facility] [address] HEMATOLOGY [place] [address] [facility] Otolaryngology [address] [place] [phone] Referral ID Status Reason Start Date Expiration Date V isits Requested Visits Authorized [id number] Closed Consult, Test & Treat 06/11/2024 06/11/2025 1 1 Reason for Visit * Reason Comments Advice Only * Consultation (Routine) - Authorized Specialty Diagnoses / Procedures Referred By Contac t Referred To Contact Hematology and Oncology Diagnoses Localized swelling, mass and lump, neck Unspecified B-cell lymphoma, unspecified site Moisés Chery MD [address] [place] [id number] [facility] Hem Onc [address] [place] [address] Referral ID Status Reason Start Date Expiration Date Visits Requested Visits Authorized [id number] Authorized Consult, Test & Treat PCP Updated and/or Approved 05/27/2024 05/27/2025 6 6 Encounter Details Date Type Department Care Team (Late st Contact Info) Description 06/11/2024 9:00 AM EDT Office Visit [place] [phone] Brett Herr MD [facility] DR HEMATOLOGY [place] [address] Julius Castillo MD [facility] DR HEMATOLOGY/[place] [address] Lymphoma, unspecified body region, unspecified lymphoma type [...] in place. May also transfer care to [facility]. Brett Herr MD Pager: [phone] 06/11/2024 documented in this encounter Plan of Treatment Upcoming Encounters Date Type Department Care Team (Late st Contact Info) Description 10/06/2024 9:00 AM EST Office Visit Hematology/Oncology at [address] [phone] Shayla Vuong APRN [facility] HEMATOLOGY [place] [address] 10/06/2024 9:30 AM EST Scheduled View Only Hematology/Oncology at [address] [phone] Ekta Womack RN 10/06/2024 9:30 AM EST Infusion Hematology Oncology at [address] [phone] 10/07/2024 12:30 PM EST Infusion Hematology Oncology at [address] [phone] 10/19/2024 10:00 AM EST Appointment [place] [address] Pia Cooper MD [facility] [address] HEMATOLOGY [place] [address] 10/19/2024 11:00 AM EST Appointment [place] [address] Pia Cooper MD [facility] DR HEMATOLOGY [place] [address] 2024 9:00 AM EST Office Visit Hematology/Oncology at [address] [phone] Pia Cooper MD [facility] DR HEMATOLOGY [place] [address] 2024 9:30 AM EST Scheduled View Only Hematology/Oncology at [address] [phone] Ekta Womack, RN 2024 9:30 AM EST Infusion Hematology Oncology at [address] [phone] 11/17/2024 9:00 AM EST Office Visit Hematology/Oncology at [address] [phone] Shayla Vuong APRN [facility] [place]EM[place] [address] 11/17/2024 9:30 AM EST Scheduled View Only Hematology/Oncology at [address] [phone] Ekta Womack, RN 11/17/2024 9:30 AM EST Infusion Hematology Oncology at [address] [phone] Scheduled Referrals Name Type Priority Associated Diagnoses Orde r Schedule Referral to ENT Outpatient Referral Routine Lymphoma, unspecified body region, unspecified lymphoma type Ordered: 06/11/2024 documented as of this encounter Results * NM PET CT Skull Base to Mid-thigh (06/25/2024 7:48 AM EDT) WORKSTATION ID [id number] RAD Anatomical Region Laterality Modality Positron Emissio [...] who have questions please contact the health patient care coordinator that requested your imaging first. ? Narrative 06/25/2024 8:30 AM EDT EXAMINATION: NM PET CT STANDARD SKULL BASE TO MID-THIGH CLINICAL HISTORY: Lymphoma staging C85.90, Non-Hodgkin lymphoma, unspecified, unspecified site TECHNIQUE: Following IV injection of 62-pbzmti-9-deoxyglucose (FDG) a standard uptake of approximately 60 [...] unspecified site TECHNIQUE: Following IV injection of 35-hedhdy-3-deoxyglucose (FDG) astandard uptake of approximately 60 minutes, [...] patients who have questions please contactthe health patient care coordinator that requested your imaging first. Brett Herr MD IMG PET ORDERABLES * Uric acid (06/11/2024 10:10 AM EDT) Uric Acid 4.2 3.5 - 8.5 mg/dL [facility] Blood 06/11/2024 10:1 0 AM EDT 06/11/2024 10:24 AM EDT Narrative Resulting Agency Comment Spec In Lab Brett Herr MD CHEMISTRY ORDERABL ES [facility] [place] [place] [address] * Hepatitis C Antibody (06/11/2024 10:10 AM EDT) Hepatitis C Antibody Negative Negative [facility] Blood 06/11/2024 10:1 0 AM EDT 06/11/2024 10:24 AM EDT Narrative Resulting Agency Comment Spec In Lab Brett Herr MD CHEMISTRY ORDERABL ES Performing Organization Address [facility] de Phone Number [facility] [place] [address] * Hepatitis B Surface Antigen (06/11/2024 10:10 AM EDT) Hepatitis B Surface Antigen Negative Negative [facility] Blood 06/11/2024 10:1 0 AM EDT 06/11/2024 10:24 AM EDT Narrative Resulting Agency Comment Spec In Lab Brett Herr MD CHEMISTRY ORDERABL ES Performing Organization Address [facility] Phone Number [facility] [place] [address] * Hepatitis B Surface Antibody (06/11/2024 10:10 AM EDT) Hepatitis B Surface Antibody, Quantitative <3.5 IU/L [facility] Comment: HepB Surface Ab Quant: Unvaccinated: < 8.5 IU/L Vaccinated: >= 11.5 IU/L Hepatitis B Surface Antibody Negative [facility] Comment: Patient is presumed to be not vaccinated or immune to HBV infection. Expected Results: Vaccinated: Positive Unvaccinated: Negative Blood 06/11/2024 10:1 0 AM EDT 06/11/2024 10:24 AM EDT Narrative Resulting Agency Comment Spec In Lab Brett Herr MD CHEMISTRY ORDERABL ES Performing Organization Address [facility] Co de Phone Number [facility] [place] [address] * Hepatitis B Core Antibody, Total (06/11/2024 10:10 AM EDT) Hepatitis B Core Antibody Negative Negative [facility] Blood 06/11/2024 10:1 0 AM EDT 06/11/2024 10:24 AM EDT Narrative Resulting Agency Comment Spec In Lab Brett Herr MD CHEMISTRY ORDERABL ES Performing Organization Address City/[facility]/ZIP Co de Phone Number [facility] [place] [address] * Lactate Dehydrogenase (06/11/2024 10:10 AM EDT) Lactate Dehydrogenase 193 110 - 220 unit/L [facility] Blood 06/11/2024 10:1 0 AM EDT 06/11/2024 10:24 AM EDT Narrative Resulting Agency Comment Spec In Lab Brett Herr MD CHEMISTRY ORDERABL ES Performing Organization Address City/[facility]/ZIP Co de Phone Number [facility] [place] [address] * HIV Screen, 4th Generation ([facility]/CGP/APD/NLH) (06/11/2024 10:10 AM EDT) HIV Ab/Ag Screen Negative Negative [facility] Comment: This 4th Generation [...] HIV Comment Low Risk of HIV Infection [facility] Blood 06/11/2024 10:1 0 AM EDT 06/11/2024 10:24 AM EDT Narrative Resulting Agency Comment Spec In Lab Brett Herr MD CHEMISTRY ORDERABL ES [facility] [place] [address] * Comprehensive metabolic panel (non-fasting) (06/11/2024 10:10 AM EDT) Glucose 94 65 - 199 mg/dL [facility] Comment:Diabetes: >=200 mg/d L plus symptoms Blood Urea Nitrogen 11 10 - 20 mg/dL [facility] Creatinine 0.94 0.80 - 1.50 mg/dL [facility] Sodium 140 135 - 145 mmol/L [facility] Potassium 4.1 3.5 - 5.0 mmol/L [facility] Comment: Please note: ??Patients with WBC >100,000 may have falsely elevated Potassium levels. ??For accurate Potassium quantification in these patients send serum separator tube (gold top) for subsequent determinations. ??Contact the Clinical Chemistry Laboratory if there are any questions. Chloride 104 98 - 107 mmol/L [facility] Carbon Dioxide 27 22 - 31 mmol/L [facility] Anion Gap 9 5 - 15 mmol/L [facility] Calcium 9.3 8.5 - 10.5 mg/dL [facility] Protein, Total 7.0 6.1 - 8.0 g/dL [facility] Albumin 4.4 3.2 - 5.2 g/dL [facility] Aspartate Aminotransferase 14 0 - 39 unit/L [facility] Alanine Aminotransferase 23 0 - 55 unit/L [facility] Alkaline Phosphatase 61 40 - 130 unit/L [facility] Bilirubin, Total 0.6 0.2 - 1.3 mg/dL [facility] Est Glomerular Filtration Rate 99 >=60 mL/min/1. 73 m?? [facility] Comment: This patient's estimated [...] Lab Brett Herr MD [place] [address] documented in this encounter Visit Diagnoses Diagnosis Lymphoma, unspecified body region, unspecified lymphoma type documented in this encounter Care Teams C D Reactor Operator Relationship Specialty Start Date End Date Danie Connor DO [address] [place] [address] PCP - General Family Medicine 06/04/24 documented as of this encounter
--- OUTSIDE RECORDS SUMMARY | 2024-09-21 22:58 | XMS_ITS | Encounter Summary ---
[place] [address] Care Team Providers Care Wildland Fire Operations Specialist Name Role Phone Unknown Primary Care Provider Unavailabl e Reason for Referral * Consultation (Routine) - Authorized Specialty Diagnoses / Procedures Referred By Kymberly penaloza Referred To Contact Hematology and Oncology Diagnoses Localized swelling, mass and lump, neck Unspecified B-cell lymphoma, unspecified site Moisés Chery MD [address] [place] [address] [facility] Onc [address] [place] [address] Referral ID Status Reason Start Date Expiration Date Visits Requested Visits Authorized [id number] Authorized Consult, Test & Treat PCP Updated and/or Approved 05/27/2024 05/27/2025 6 6 Encounter Details Date Type Department Care Team (Latest Contact Info) Description 05/27/2024 Transcribe Orders eDH Incoming Referrals [phone] Moisés Chery MD [address] [place] [address] Localized swelling, mass and lump, [...] 9:00 AM EST Office Visit Hematology/Oncology at [address] [phone] Shayla Vuong APRN [facility] [place] [address] 10/06/2024 9:30 AM EST Scheduled View Only Hematology/Oncology at [address] [phone] Ekta Womack RN 10/06/2024 9:30 AM EST Infusion Hematology Oncology at [address] [phone] 10/07/2024 12:30 PM EST Infusion Hematology Oncology at [address] [phone] 10/19/2024 10:00 AM EST Appointment [place] [address] Pia Cooper MD [facility] [place] [address] 10/19/2024 11:00 AM EST Appointment [place] [address] Pia Cooper MD [facility] [place] [address] 2024 9:00 AM EST Office Visit Hematology/Oncology at [address] [phone] Pia Cooper MD [facility] [place] [address] 2024 9:30 AM EST Scheduled View Only Hematology/Oncology at [address] [phone] Ekta Womack, RN 2024 9:30 AM EST Infusion Hematology Oncology at [address] [phone] 11/17/2024 9:00 AM EST Office Visit Hematology/Oncology at [address] [phone] Shayla Vuong, [facility] DR [place] [address] 11/17/2024 9:30 AM EST Scheduled View Only Hematology/Oncology at [address] [phone] Ekta Womack RN 11/17/2024 9:30 AM EST Infusion Hematology Oncology at [address] [phone] Scheduled Referrals Name Type Priority Associated Diagnoses Order Schedule Referral to Hematology and Oncology Outpatient Referral Routine Localized swelling, mass and lump, neck Ordered: 05/27/2024 documented as of this encounter Visit Diagnoses Diagnosis Localized swelling, mass and lump, neck Swelling, mass, or lump in head and neck documented in this encounter Care Teams Wildland Fire Operations Specialist Relationship Specialty Start Date End Date Unknown None PCP - General 09/30/23 06/03/24 documented as of this encounter
--- OUTSIDE RECORDS SUMMARY | 2024-09-21 22:58 | XMS_ITS | Encounter Summary ---
Author Organization [facility] [place] [address] Care Team Providers Care Market Risk Specialist Name Role Phone Unknown Primary Care Provider Unavailabl e Encounter Details Date Type Department Care Team (Late Contact Info) Description 05/04/2024 2:15 PM EDT Ancillary Procedure Radiology Library at [facility] [place] [phone] [place] Social History Tobacco Use Types [...] AM EST Office Visit Hematology/Oncology at [address] [phone] Shayla Vuong, SALES SUPPORT CONSULTANT [facility] DR HEMATOLOGY [place] [address] 10/06/2024 9:30 AM EST Scheduled View Only Hematology/Oncology at [address] [phone] Ekta Womack RN 10/06/2024 9:30 AM EST Infusion Hematology Oncology at [address] [phone] 10/07/2024 12:30 PM EST Infusion Hematology Oncology at [address] [phone] 10/19/2024 10:00 AM EST Appointment [place] [address] Pia Cooper MD [facility] DR [place] [address] 10/19/2024 11:00 AM EST Appointment [place] [phone] Pia Cooper MD [facility] DR [place] [address] 2024 9:00 AM EST Office Visit Hematology/Oncology at [address] [phone] Pia Cooper MD [facility] DR [place] [address] 2024 9:30 AM EST Scheduled View Only Hematology/Oncology at [address] [phone] Ekta Womack RN 2024 9:30 AM EST Infusion Hematology Oncology at [address] [phone] 11/17/2024 9:00 AM EST Office Visit Hematology/Oncology at [address] [phone] Shayla Vuong APRN [facility] DR [place] [address] 11/17/2024 9:30 AM EST Scheduled View Only Hematology/Oncology at [address] [phone] Ekta Womack RN 11/17/2024 9:30 AM EST Infusion Hematology Oncology at [address] [phone] documented as of this encounter Procedures Procedure [...] It's purpose is for storage only. [place] eMdina [facility] FILM LIBRARY ORD ERABLES [place], [place] documented in this encounter Visit Diagnoses Not on filedocumented in this encounter Care Teams Market Risk Specialist Relationship Specialty Start Date End Date Unknown None PCP - General 09/30/23 06/03/24 documented as of this encounter
--- OUTSIDE RECORDS SUMMARY | 2024-09-21 22:58 | XMS_ITS | Encounter Summary ---
Author Organization [facility] [place] [address] Care Team Providers Care Peanut Farmer Name Role Phone Unknown Primary Care Provider Unavailabl e Encounter Details Date Type Department Care Team (Late Contact Info) Description 05/19/2024 1:00 PM EDT Ancillary Procedure Radiology Library at [facility] [place] [phone] [place] Social History Tobacco Use Types [...] AM EST Office Visit Hematology/Oncology at [address] [phone] Shayla Vuong, DIVERSIONAL THERAPIST [facility] DR HEMATOLOGY [place] [address] 10/06/2024 9:30 AM EST Scheduled View Only Hematology/Oncology at [address] [phone] Ekta Womack RN 10/06/2024 9:30 AM EST Infusion Hematology Oncology at [address] [phone] 10/07/2024 12:30 PM EST Infusion Hematology Oncology at [address] [phone] 10/19/2024 10:00 AM EST Appointment [place] [address] Pia Cooper MD [facility] DR [place] [address] 10/19/2024 11:00 AM EST Appointment [place] [address] Pia Cooper MD [facility] DR [place] [address] 2024 9:00 AM EST Office Visit Hematology/Oncology at [address] [phone] Pia Cooper MD [facility] DR [place] [address] 2024 9:30 AM EST Scheduled View Only Hematology/Oncology at [address] [phone] Ekta Womack RN 2024 9:30 AM EST Infusion Hematology Oncology at [address] [phone] 11/17/2024 9:00 AM EST Office Visit Hematology/Oncology at [address] [phone] Shayla Vuong APRN [facility] DR [place] [address] 11/17/2024 9:30 AM EST Scheduled View Only Hematology/Oncology at [address] [phone] Ekta Womack RN 11/17/2024 9:30 AM EST Infusion Hematology Oncology at [address] [phone] documented as of this encounter Procedures Procedure [...] [place] Lisa FILM LIBRARY ORD ERABLES [place], [place] documented in this encounter Visit Diagnoses Not on filedocumented in this encounter Care Teams Peanut Farmer Relationship Specialty Start Date End Date Unknown None PCP - General 09/30/23 06/03/24 documented as of this encounter
--- OUTSIDE RECORDS SUMMARY | 2024-09-21 22:58 | XMS_ITS | Encounter Summary ---
Author Organization [facility] [place] [address] Care Team Providers Care Associate Professor Of Counseling Name Role Phone Unknown Primary Care Provider Unavailabl e Encounter Details Date Type Department Care Team (Late Contact Info) Description 05/04/2024 Interpretation Only Radiology Library at [facility] [place] [address] [place] Social History Tobacco Use Types [...] 9:00 AM EST Office Visit Hematology/Oncology at [address] [phone] Shayla Vuong APRN [facility] HEMATOLOGY [place] [address] 10/06/2024 9:30 AM EST Scheduled View Only Hematology/Oncology at [address] [phone] Ekta Womack RN 10/06/2024 9:30 AM EST Infusion Hematology Oncology at [address] [phone] 10/07/2024 12:30 PM EST Infusion Hematology Oncology at [address] [phone] 10/19/2024 10:00 AM EST Appointment [place] [address] Pia Cooper MD [facility] DR [place] [address] 10/19/2024 11:00 AM EST Appointment [place] [address] Pia Cooper MD [facility] DR [place] [address] 2024 9:00 AM EST Office Visit Hematology/Oncology at [address] [phone] Pia Cooper MD [facility] [place] [address] 2024 9:30 AM EST Scheduled View Only Hematology/Oncology at [address] [phone] Ekta Womack RN 2024 9:30 AM EST Infusion Hematology Oncology at [address] [phone] 11/17/2024 9:00 AM EST Office Visit Hematology/Oncology at [address] [phone] Shayla Vuong APRN [facility] DR [place] [address] 11/17/2024 9:30 AM EST Scheduled View Only Hematology/Oncology at [address] [phone] Ekta Womack RN 11/17/2024 9:30 AM EST Infusion Hematology Oncology at [address] [phone] documented as of this encounter Procedures Procedure [...] FILM LIBRARY ORD ERABLES Performing Organization Address City/State/[facility] Co de Phone Number [place], [place] documented in this encounter Visit Diagnoses Not on filedocumented in this encounter Care Teams Associate Professor Of Counseling Relationship Specialty Start Date End Date Unknown None PCP - General 09/30/23 06/03/24 documented as of this encounter
--- OUTSIDE RECORDS SUMMARY | 2024-09-21 22:58 | XMS_ITS | Encounter Summary ---
Author Organization [facility] [place] [address] Care Team Providers Care Stationary Engineer Refrigeration Name Role Phone Danie Connor Primary Care Provider [phone] Encounter Details Date Type Department Care Team (Latest Contact Info) Description 06/11/2024 10:15 AM EDT Laboratory Appointment Lab [address] [place] [phone] Lymphoma, unspecified body region, unspecified lymphoma type [...] 9:00 AM EST Office Visit Hematology/Oncology at [address] [phone] Shayla Vuong APRN [facility] DR HEMATOLOGY [place] [address] 10/06/2024 9:30 AM EST Scheduled View Only Hematology/Oncology at [address] [phone] Ekta Womack RN 10/06/2024 9:30 AM EST Infusion Hematology Oncology at [address] [phone] 10/07/2024 12:30 PM EST Infusion Hematology Oncology at [address] [phone] 10/19/2024 10:00 AM EST Appointment [place] [address] Pia Cooper MD [facility] DR HEMATOLOGY [place] [address] 10/19/2024 11:00 AM EST Appointment [place] [address] Pia Cooper MD [facility] DR HEMATOLOGY [place] [address] 2024 9:00 AM EST Office Visit Hematology/Oncology at [address] [phone] Pia Cooper MD [facility] DR HEMATOLOGY [place] [address] 2024 9:30 AM EST Scheduled View Only Hematology/Oncology at [address] [phone] Ekta Womack RN 2024 9:30 AM EST Infusion Hematology Oncology at [address] [phone] 11/17/2024 9:00 AM EST Office Visit Hematology/Oncology at [address] [phone] Shayla Vuong APRN [facility] DR HEMATOLOGY [place] [address] 11/17/2024 9:30 AM EST Scheduled View Only Hematology/Oncology at [address] [phone] Ekta Womack RN 11/17/2024 9:30 AM EST Infusion Hematology Oncology at [address] [phone] documented as of this encounter Procedures Procedure [...] unspecified lymphoma type HIV SCREEN, 4TH GENERATION ([facility]/APD/NLH) Routine 06/11/2024 10:10 AM EDT Lymphoma, unspecified [...] 10:10 AM EDT) Neutrophil % 61.9 % [facility] Neutrophil Absolute 3.46 1.70 - 6.10 x10(3)/[facility] Lymph % 26.3 % [facility] Lymphocytes Abs 1.5 0.9 - 3.2 x10(3)/[facility] Monocyte % 8.1 % [facility] Monocyte Abs 0.4 0.3 - 0.9 x10(3)/[facility] Eos % 2.5 % [facility] Eosinophils Abs 0.1 0.0 - 0.4 x10(3)/[facility] Basophil % 0.7 % [facility] Baso Absolute 0.0 0.0 - 0.1 x10(3)/[facility] Immature Gran % 0.50 % [facility] Comment: Immature granulocytes(IG's)percentage and absolute count will include metamyelocytes, myelocytes, and promyelocytes. Blood smears from CBCs yielding IG's will be scanned manually for concordance. If this scan disagrees with the automated IG or if promyelocytes are noted, a manual differential will be performed. Immature Gran Absolute 0.03 0.00 - 0.04 x10(3)/[facility] Blood 06/11/2024 10:1 0 AM EDT 06/11/2024 10:24 AM EDT Narrative Resulting Agency Comment Spec In Lab Brett Herr MD HEMATOLOGY ORDERAB LES [facility] [place] [address] * Hemogram (06/11/2024 10:10 AM EDT) [facility] White Blood Cell 5.6 4.0 - 9.5 x10(3)/[facility] Red Blood Cell 4.90 4.58 - 5.54 x10(6)/[facility] Hemoglobin 14.9 13.7 - 16.5 g/dL [facility] Hematocrit 43.0 40.5 - 48.5 % [facility] Mean Cell Volume 87.8 82.9 - 93.1 [facility] Mean Cell Hemoglobin 30.4 27.5 - 32.1 pg [facility] Mean Cell Hemoglobin Concentration 34.7 32.0 - 35.7 g/dL [facility] Platelet 227 145 - 357 x10(3)/[facility] RDW Standard Deviation 41.3 36.0 - 45.0 [facility] RDW coefficient of variation 12.9 11.4 - 13.8 % [facility] Mean Platelet Volume 9.4 7.6 - 12.9 [facility] NRBC% auto 0.0 % [facility] NRBC Absolute 0.000 0.000 - 0.000 x10(3)/[facility] Blood 06/11/2024 10:1 0 AM EDT 06/11/2024 10:24 AM EDT Narrative Resulting Agency Comment Spec In Lab Brett Herr MD HEMATOLOGY ORDERAB LES [facility] [place] [address] * Comprehensive metabolic panel (non-fasting) (06/11/2024 10:10 AM EDT) [facility] Glucose 94 65 - 199 mg/dL [facility] Comment:Diabetes: >=200 mg/d L plus symptoms Blood Urea Nitrogen 11 10 - 20 mg/dL [facility] Creatinine 0.94 0.80 - 1.50 mg/dL [facility] Sodium 140 135 - 145 mmol/L [facility] Potassium 4.1 3.5 - 5.0 mmol/L [facility] Comment: Please note: ??Patients with WBC >100,000 may have falsely elevated Potassium levels. ??For accurate Potassium quantification in these patients send serum separator tube (gold top) for subsequent determinations. ??Contact the Clinical Chemistry Laboratory if there are any questions. Chloride 104 98 - 107 mmol/L [facility] Carbon Dioxide 27 22 - 31 mmol/L [facility] Anion Gap 9 5 - 15 mmol/L [facility] Calcium 9.3 8.5 - 10.5 mg/dL [facility] Protein, Total 7.0 6.1 - 8.0 g/dL [facility] Albumin 4.4 3.2 - 5.2 g/dL [facility] Aspartate Aminotransferase 14 0 - 39 unit/L [facility] Alanine Aminotransferase 23 0 - 55 unit/L [facility] Alkaline Phosphatase 61 40 - 130 unit/L [facility] Bilirubin, Total 0.6 0.2 - 1.3 mg/dL [facility] Est Glomerular Filtration Rate 99 >=60 mL/min/1. 73 m?? [facility] Comment: This patient's [...] MD CHEMISTRY ORDERABL ES Performing Organization Address [facility] Co de Phone Number [facility] [place] [address] * HIV Screen, 4th Generation ([facility]/CGP/APD/NLH) (06/11/2024 10:10 AM EDT) HIV Ab/Ag Screen Negative Negative [facility] Comment: This 4th [...] HIV Comment Low Risk of HIV Infection [facility] Blood 06/11/2024 10:1 0 AM EDT 06/11/2024 10:24 AM EDT Narrative Resulting Agency Comment Spec In Lab Brett Herr MD CHEMISTRY ORDERABL ES Performing Organization Address [facility]/ZIP Co de Phone Number [facility] [place] [address] * Lactate Dehydrogenase (06/11/2024 10:10 AM EDT) Lactate Dehydrogenase 193 110 - 220 unit/L [facility] Blood 06/11/2024 10:1 0 AM EDT 06/11/2024 10:24 AM EDT Narrative Resulting Agency Comment Spec In Lab Brett Herr MD CHEMISTRY ORDERABL ES Performing Organization Address [facility]/ZIP Co de Phone Number [facility] [place] [address] * Hepatitis B Core Antibody, Total (06/11/2024 10:10 AM EDT) Hepatitis B Core Antibody Negative Negative [facility] Blood 06/11/2024 10:1 0 AM EDT 06/11/2024 10:24 AM EDT Narrative Resulting Agency Comment Spec In Lab Brett Herr MD CHEMISTRY ORDERABL ES Performing Organization Address [facility] Co de Phone Number [facility] [place] [address] * Hepatitis B Surface Antibody (06/11/2024 10:10 AM EDT) Hepatitis B Surface Antibody, Quantitative <3.5 IU/L [facility] Comment: HepB Surface Ab Quant: Unvaccinated: < 8.5 IU/L Vaccinated: >= 11.5 IU/L Hepatitis B Surface Antibody Negative [facility] Comment: Patient is presumed to be not vaccinated or immune to HBV infection. Expected Results: Vaccinated: Positive Unvaccinated: Negative Blood 06/11/2024 10:1 0 AM EDT 06/11/2024 10:24 AM EDT Narrative Resulting Agency Comment Spec In Lab Brett Herr MD CHEMISTRY ORDERABL ES Performing Organization Address [facility] Co de Phone Number [facility] [place] [address] * Hepatitis B Surface Antigen (06/11/2024 10:10 AM EDT) Hepatitis B Surface Antigen Negative Negative [facility] Blood 06/11/2024 10:1 0 AM EDT 06/11/2024 10:24 AM EDT Narrative Resulting Agency Comment Spec In Lab Brett Herr MD CHEMISTRY ORDERABL ES Performing Organization Address [facility] Co de Phone Number [facility] [place] [address] * Hepatitis C Antibody (06/11/2024 10:10 AM EDT) Hepatitis C Antibody Negative Negative [facility] Blood 06/11/2024 10:1 0 AM EDT 06/11/2024 10:24 AM EDT Narrative Resulting Agency Comment Spec In Lab Brett Herr MD CHEMISTRY ORDERABL ES Performing Organization Address City/[facility]/ZIP Co de Phone Number [facility] [place] [address] * Uric acid (06/11/2024 10:10 AM EDT) Uric Acid 4.2 3.5 - 8.5 mg/dL [facility] Blood 06/11/2024 10:1 0 AM EDT 06/11/2024 10:24 AM EDT Narrative Resulting Agency Comment Spec In Lab Brett Herr MD CHEMISTRY ORDERABL ES Performing Organization Address [facility] Co de Phone Number [facility] [place] [address] documented in this encounter Visit Diagnoses Diagnosis Lymphoma, unspecified body region, unspecified lymphoma type documented in this encounter Care Teams Stationary Engineer Refrigeration Relationship Specialty Start Date End Date Danie Connor DO [address] [place] [phone] PCP - General Family Medicine 06/04/24 documented as of this encounter
--- OUTSIDE RECORDS SUMMARY | 2024-09-21 22:58 | XMS_ITS | Encounter Summary ---
Author Organization [place] [address] Care Team Providers Care Automotive Manager Name Role Phone Geeta Danie Bustos Primary Care Provider [phone] Reason for Visit * Auth/Cert (Routine) Specialty Diagnoses / Procedures Referred By Kymberly t Referred To Contact Diagnoses Lymphoma, unspecified body region, unspecified lymphoma type right submandibular lymphadenopathy Procedures PRO BIOPSY/EXCISION LYMPH NODE OPEN SUPERFICIAL BIOPSY OR EXCISION OF LYMPH NODE(S), OPEN, SUPERFICIAL (WRVU 3.79) Dorinda Pastrana MD [facility] [place] [address] [facility] Referral ID Status Reason Start Date Expiration Date Visits Re quested Visits Authorized [id number] 1 1 Encounter Details Date Type Department Care Team (Late st Contact Info) Description 06/28/2024 8:49 AM EDT Anesthesia Event [place] [address] Abigail Anne MD [facility] [place] [address] Anesthesia Record Procedure Summary Procedure Name Responsible [...] Type Details Placement Removal PIV 06/28/24; 08; nfvw-[id number] catheter system; 20 gauge; median cubital vein (antecubital fossa), left; Anatomical Landmarks; distraction, tolerated well, appears comfortable; 06/28/24; 1117 06/28/24 0819 by Valentine Pa RN 06/28/24 111 by Michelle Delarosa, HUONG ETT Mask Ventilation: Ea sy [...] Procedure Summary Date: 06/28/24 Room / Location: [facility] OR [facility] MAIN OR Anesthesia Start: 848 Anesthesia Stop: 956 Procedure: BIOPSY OR EXCISION OF LYMPH NODE(S), OPEN, SUPERFICIAL (WRVU 3.79) (Right: Neck) Diagnosis: Lymphoma, unspecified body region, unspecified lymphoma type (right submandibular lymphadenopathy) Surgeons: Dorinda Pastrana MD Responsible Provider: Abigail Anne MD Anesthesia Type: general ASA Status: 2 All Anesthesia Providers: Anesthesiologist: Abigail Anne MD SUPERVISOR [employer]: Dipika Erickson CRNA Vitals Value Taken Time BP 101/64 06/28/24 1100 Temp 36 ??C (96.8 ??F) 06/28/24 0956 Pulse 76 06/28/24 1106 Resp 17 06/28/24 1106 SpO2 95 % 06/28/24 1107 Pain Level 3 06/28/24 1112 Vitals shown include unfiled device data. Patient Location: PACU/[facility] Level of Consciousness: Awake and Alert Pain [...] risks discussed with patient. Plan discussed with SUPERVISOR [employer]. Anesthesia Screening documented in this encounter Miscellaneous Notes * Addendum Note - Abigail Anne MD - 06/28/2024 12:04 PM EDT Addendum created 06/28/24 1204 by Abigail Anne MD Clinical Note Signed documented in this encounter Plan of Treatment Upcoming Encounters Date Type Department Care Team (Late st Contact Info) Description 10/06/2024 9:00 AM EST Office Visit Hematology/Oncology at [address] [phone] Shayla Vuong APRN [facility] DR [place] [address] 10/06/2024 9:30 AM EST Scheduled View Only Hematology/Oncology at [address] [phone] Ekta Womack RN 10/06/2024 9:30 AM EST Infusion Hematology Oncology at [address] [phone] 10/07/2024 12:30 PM EST Infusion Hematology Oncology at [address] [phone] 10/19/2024 10:00 AM EST Appointment [place] [address] Pia Cooper MD [facility] [place] [address] 10/19/2024 11:00 AM EST Appointment [place] [address] Pia Cooper MD [facility] [place] [address] 2024 9:00 AM EST Office Visit Hematology/Oncology at [address] [phone] Pia Cooper MD [facility] [place] [address] 2024 9:30 AM EST Scheduled View Only Hematology/Oncology at [address] [phone] Ekta Womack, HUONG 2024 9:30 AM EST Infusion Hematology Oncology at [address] [phone] 11/17/2024 9:00 AM EST Office Visit Hematology/Oncology at [address] [phone] Shayla Vuong [facility] DR HEMATOLOGY [place] [address] 11/17/2024 9:30 AM EST Scheduled View Only Hematology/Oncology at [address] [phone] Ekta Womack, HUONG 11/17/2024 9:30 AM EST Infusion Hematology Oncology at [address] [phone] documented as of this encounter Visit Diagnoses [...] mg documented in this encounter Care Teams Automotive Manager Relationship Specialty Start Date End Date Danie Connor DO [address] [place] [address] PCP - General Family Medicine 06/04/24 documented as of this encounter
--- OUTSIDE RECORDS SUMMARY | 2024-09-21 22:58 | XMS_ITS | Encounter Summary ---
Author Organization [facility] [place] [address] Care Team Providers Care Radiation Therapy Technician Name Role Phone ConnorDanie willis Primary Care Provider [phone] Encounter Details Date Type Department Care Team (Late st Contact Info) Description 06/24/2024 Orders Only Hematology [place] [address] Shayla Vuong TRAVELING ELECTRICIAN [facility] [place] [address] Lymphoma, unspecified body region, unspecified lymphoma type [...] 9:00 AM EST Office Visit Hematology/Oncology at [address] [phone] Shayla Vuong TRAVELING ELECTRICIAN [facility] [place] [address] 10/06/2024 9:30 AM EST Scheduled View Only Hematology/Oncology at [address] [phone] Ekta Womack, RN 10/06/2024 9:30 AM EST Infusion Hematology Oncology at [address] [phone] 10/07/2024 12:30 PM EST Infusion Hematology Oncology at [address] [phone] 10/19/2024 10:00 AM EST Appointment [place] [address] Pia Cooper MD [facility] DR [place] [address] 10/19/2024 11:00 AM EST Appointment [place] [address] Pia Cooper MD [facility] DR [place] [address] 2024 9:00 AM EST Office Visit Hematology/Oncology at [address] [phone] Pia Cooper MD [facility] [place] [address] 2024 9:30 AM EST Scheduled View Only Hematology/Oncology at [address] [phone] Ekta Womack RN 2024 9:30 AM EST Infusion Hematology Oncology at [address] [phone] 11/17/2024 9:00 AM EST Office Visit Hematology/Oncology at [address] [phone] Shayla Vuong APRN [facility] [place] [address] 11/17/2024 9:30 AM EST Scheduled View Only Hematology/Oncology at [address] [phone] Ekta Womack RN 11/17/2024 9:30 AM EST Infusion Hematology Oncology at [address] [phone] documented as of this encounter Visit Diagnoses Diagnosis Lymphoma, unspecified body region, unspecified lymphoma type documented in this encounter Care Teams Radiation Therapy Technician Relationship Specialty Start Date End Date Danie Connor DO [address] [place] [address] PCP - General Family Medicine 06/04/24 documented as of this encounter
--- OUTSIDE RECORDS SUMMARY | 2024-09-21 22:58 | XMS_ITS | Encounter Summary ---
Author Organization [facility] [place] [address] Care Team Providers Care Drier Take Off Tender Name Role Phone ConnorDanie Primary Care Provider [phone] Encounter Details Date Type Department Care Team [...] AM EST Office Visit Hematology/Oncology at [address] [phone] Shayla Vuong APRN [facility] DR HEMATOLOGY [place] [address] 10/06/2024 9:30 AM EST Scheduled View Only Hematology/Oncology at [address] [phone] Ekta Womack RN 10/06/2024 9:30 AM EST Infusion Hematology Oncology at [address] [phone] 10/07/2024 12:30 PM EST Infusion Hematology Oncology at [address] [phone] 10/19/2024 10:00 AM EST Appointment [place] [address] Pia Cooper MD [facility] DR HEMATOLOGY [place] [address] 10/19/2024 11:00 AM EST Appointment [place] [address] Pia Cooper MD [facility] DR HEMATOLOGY [place] [address] 2024 9:00 AM EST Office Visit Hematology/Oncology at [address] [phone] Pia Cooper MD [facility] DR HEMATOLOGY [place] [address] 2024 9:30 AM EST Scheduled View Only Hematology/Oncology at [address] [phone] Ekta Womack RN 2024 9:30 AM EST Infusion Hematology Oncology at [address] [phone] 11/17/2024 9:00 AM EST Office Visit Hematology/Oncology at [address] [phone] Shayla Vuong APRN [facility] DR HEMATOLOGY [place] [address] 11/17/2024 9:30 AM EST Scheduled View Only Hematology/Oncology at [address] [phone] Ekta Womack RN 11/17/2024 9:30 AM EST Infusion Hematology Oncology at [address] [phone] documented as of this encounter Visit Diagnoses Not on filedocumented in this encounter Care Teams Drier Take Off Tender Relationship Specialty Start Date End Date Danie Connor DO [address] [place] [address] PCP - General Family Medicine 06/04/24 documented as of this encounter
--- OUTSIDE RECORDS SUMMARY | 2024-09-21 22:58 | XMS_ITS | Encounter Summary ---
Author Organization [facility] [place] [address] Care Team Providers Care Mixed Crop And Livestock Farmer Name Role Phone Jose Manuel Kimble MD Primary Care Provider Reason for Visit * Reason Onset Date Comments TeleHealth 03/20/2021 Encounter Details Date Type Department Care Team ([facility] st Contact Info) Description 03/20/2021 [place] [phone] Heydi Sanchez MD [facility] [place] [address] TeleHealth Social History Tobacco Use Types Packs/Day [...] AM EST Office Visit Hematology/Oncology at [address] [phone] Shayla Vuong APRN [facility] [place] [address] 10/06/2024 9:30 AM EST Scheduled View Only Hematology/Oncology at [address] [phone] Ekta Womack RN 10/06/2024 9:30 AM EST Infusion Hematology Oncology at [address] [phone] 10/07/2024 12:30 PM EST Infusion Hematology Oncology at [address] [phone] 10/19/2024 10:00 AM EST Appointment [place] [address] Pia Cooper MD [facility] [place] [address] 10/19/2024 11:00 AM EST Appointment [place] [address] Pia Cooper MD [facility] [place] [address] 2024 9:00 AM EST Office Visit Hematology/Oncology at [address] [phone] Pia oCoper MD [facility] [place] [address] 2024 9:30 AM EST Scheduled View Only Hematology/Oncology at [address] [phone] Ekta Womack, RN 2024 9:30 AM EST Infusion Hematology Oncology at [address] [phone] 11/17/2024 9:00 AM EST Office Visit Hematology/Oncology at [address] [phone] Shayla Vuong, [facility] DR [place] [address] 11/17/2024 9:30 AM EST Scheduled View Only Hematology/Oncology at [address] [phone] Ekta Womack, RN 11/17/2024 9:30 AM EST Infusion Hematology Oncology at [address] [phone] documented as of this encounter Visit Diagnoses Not on filedocumented in this encounter Care Teams Mixed Crop And Livestock Farmer Relationship Specialty Start Date End Date Jose Manuel Kimble MD PCP - General Family Medicine 09/20/15 09/29/23 documented as of this encounter
--- OUTSIDE RECORDS SUMMARY | 2024-09-21 22:58 | XMS_ITS | Encounter Summary ---
Author Organization [facility] [place] [address] Care Team Providers Care Clerk Of Scales Name Role Phone Jose Manuel Kimble MD Primary Care Provider [phone] Reason for Visit * Reason Onset Date Comments Appointment 03/06/2022 Encounter Details Date Type Department Care Team (Late Contact Info) Description 03/06/2022 Telephone [place] [phone] Heydi Sanchez MD [facility] [place] [address] Appointment Social History Tobacco Use Types Packs/Day [...] AM EST Office Visit Hematology/Oncology at [address] [phone] Shayla Vuong APRN [facility] DR HEMATOLOGY [place] [address] 10/06/2024 9:30 AM EST Scheduled View Only Hematology/Oncology at [address] [phone] Ekta Womack RN 10/06/2024 9:30 AM EST Infusion Hematology Oncology at [address] [phone] 10/07/2024 12:30 PM EST Infusion Hematology Oncology at [address] [phone] 10/19/2024 10:00 AM EST Appointment [place] [address] Pia Cooper MD [facility] DR HEMATOLOGY [place] [address] 10/19/2024 11:00 AM EST Appointment [place] [address] Pia Cooper MD [facility] HEMATOLOGY [place] [address] 2024 9:00 AM EST Office Visit Hematology/Oncology at [address] [phone] Pia Cooper MD [facility] HEMATOLOGY [place] [address] 2024 9:30 AM EST Scheduled View Only Hematology/Oncology at [address] [phone] Etka Womack RN 2024 9:30 AM EST Infusion Hematology Oncology at [address] [phone] 11/17/2024 9:00 AM EST Office Visit Hematology/Oncology at [address] [phone] Shayla Vuong, [employer] [employer] [facility] HEMATOLOGY [place] [address] 11/17/2024 9:30 AM EST Scheduled View Only Hematology/Oncology at [address] [phone] Ekta Womack RN 11/17/2024 9:30 AM EST Infusion Hematology Oncology at [address] [phone] documented as of this encounter Visit Diagnoses Not on filedocumented in this encounter Care Teams Clerk Of Scales Relationship Specialty Start Date End Date Jose Manuel Kimble MD PCP - General Family Medicine 09/20/15 09/29/23 documented as of this encounter
--- OUTSIDE RECORDS SUMMARY | 2024-09-21 22:58 | XMS_ITS | Encounter Summary ---
[place] [address] Care Team Providers Care Securities Consultant Name Role Phone Danie Connor DO Primary Care Provider [phone] Reason for Visit * Diagnostic Test (STAT) - Closed Specialty Diagnoses / Procedures Referred By Contac t Referred To Contact Radiology Diagnoses Lymphoma, unspecified body region, unspecified lymphoma type Procedures NM PET CT Skull Base to Mid-thigh Brett Herr MD [facility] DR HEMATOLOGY [place] [address] [place] [address] Referral ID Status Reason Start Date Expiration Date V isits Requested Visits Authorized [id number] Closed Specialty Service Requested 06/11/2024 08/09/2024 1 1 Encounter Details Date Type Department Care Team (Latest Contact Info) Description 06/25/2024 6:15 AM EDT - 06/25/2024 11:59 PM EDT Hospital Encounter [place] [address] Brett Herr MD [facility] DR HEMATOLOGY [place] [address] Discharge Disposition: Home Social History [...] AM EST Office Visit Hematology/Oncology at [address] [phone] Shayla Vuong APRN [facility] HEMATOLOGY [place] [address] 10/06/2024 9:30 AM EST Scheduled View Only Hematology/Oncology at [address] [phone] Ekta Womack RN 10/06/2024 9:30 AM EST Infusion Hematology Oncology at [address] [phone] 10/07/2024 12:30 PM EST Infusion Hematology Oncology at [address] [phone] 10/19/2024 10:00 AM EST Appointment [place] [address] Pia Cooper MD [facility] HEMATOLOGY [place] [address] 10/19/2024 11:00 AM EST Appointment [place] [address] Pia Cooper MD [facility] DR HEMATOLOGY [place] [address] 2024 9:00 AM EST Office Visit Hematology/Oncology at [address] [phone] Pia Cooper MD [facility] HEMATOLOGY [place] [address] 2024 9:30 AM EST Scheduled View Only Hematology/Oncology at [address] [phone] Ekta Womack, RN 2024 9:30 AM EST Infusion Hematology Oncology at [address] [phone] 11/17/2024 9:00 AM EST Office Visit Hematology/Oncology at [address] [phone] Shayla Vuong APRN [facility] HEMATOLOGY [place] [address] 11/17/2024 9:30 AM EST Scheduled View Only Hematology/Oncology at [address] [phone] Ekta Womack, RN 11/17/2024 9:30 AM EST Infusion Hematology Oncology at [address] [phone] documented as of this encounter Procedures Procedure [...] Arm documented in this encounter Care Teams Securities Consultant Relationship Specialty Start Date End Date Danie Connor DO [address] [place] [phone] PCP - General Family Medicine 06/04/24 documented as of this encounter
--- OUTSIDE RECORDS SUMMARY | 2024-09-21 22:58 | XMS_ITS | Encounter Summary ---
Author Organization [facility] [place] [address] Care Team Providers Care Nuclear Fuel Processing Technician Name Role Phone ConnorDanie Primary Care Provider [phone] Encounter Details Date Type Department Care Team [...] AM EST Office Visit Hematology/Oncology at [address] [phone] Shayla Vuong APRN [facility] DR HEMATOLOGY [place] [address] 10/06/2024 9:30 AM EST Scheduled View Only Hematology/Oncology at [address] [phone] Ekta Womack RN 10/06/2024 9:30 AM EST Infusion Hematology Oncology at [address] [phone] 10/07/2024 12:30 PM EST Infusion Hematology Oncology at [address] [phone] 10/19/2024 10:00 AM EST Appointment [place] [address] Pia Cooper MD [facility] DR HEMATOLOGY [place] [address] 10/19/2024 11:00 AM EST Appointment [place] [address] Pia Cooper MD [facility] DR HEMATOLOG[place] [address] 2024 9:00 AM EST Office Visit Hematology/Oncology at [address] [phone] Pia Cooper MD [facility] DR HEMATOLOGY [place] [address] 2024 9:30 AM EST Scheduled View Only Hematology/Oncology at [address] [phone] Ekta Womack RN 2024 9:30 AM EST Infusion Hematology Oncology at [address] [phone] 11/17/2024 9:00 AM EST Office Visit Hematology/Oncology at [address] [phone] Shayla Vuong APRN [facility] DR HEMATOLOGY [place] [address] 11/17/2024 9:30 AM EST Scheduled View Only Hematology/Oncology at [address] [phone] Ekta Womack RN 11/17/2024 9:30 AM EST Infusion Hematology Oncology at [address] [phone] documented as of this encounter Visit Diagnoses Not on filedocumented in this encounter Care Teams Nuclear Fuel Processing Technician Relationship Specialty Start Date End Date Danie Connor DO [address] [place] [address] PCP - General Family Medicine 06/04/24 documented as of this encounter
--- OUTSIDE RECORDS SUMMARY | 2024-09-21 22:58 | XMS_ITS | Encounter Summary ---
[place] [address] Care Team Providers Care General Labor Forklift Operator Name Role Phone Jose Manuel Kimble MD Primary Care Provider [phone] Encounter Details Date Type Department Care Team (Latest Contact Info) Description 03/26/2021 3:00 PM EDT TH Visit (TeleHealth) [place] [address] Heydi Sanchez MD [facility] DR [place] [address] Temporal lobe epilepsy, intractable Social History Tobacco [...] Sanchez MD - 03/26/2021 3:00 PM EDT [facility] [place] [address] Re - Brett Campos 1975 PCP - Jose Manuel Kimble MD Follow-up Evaluation/Telehealth visit Epilepsy Type/Syndrome: LRE, s/p LATL 1998 at [facility], continuing seizures Seizure history: Onset at [...] lazy eye. Family Hx: No epilepsy MRI: [facility] Oct 2015 left [facility] Video EE11/24/15 1. 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 Presently he works at [employer] , no T/A/I, eating CBD chocolates *Seizure Control: QEpilepsy 02/21/2021 Last seizure was: Within past year Were seizures disabling? Yes Social Factors: QEPILEPSY SOCIAL FACTORS 02/21/2021 Employment status: Yes - [employer] Currently driving: Yes Review of Systems: Review [...] status post left anterior lobectomy at [facility] in 1998 and period of seizure [...] request neuropscyhological evaluation and sleep study results- [facility]. Would like labs resent to [place], [place]- will resend Would like to think about repeat EMU evaluation Will follow with local neurologist for now and me annually Will call to schedule emu admission if he decides to pursue this Heydi Sanchez MD [facility] Neurology Total time associated with this visit was 30 minutes which was spent in counseling, coordination ofcare and documentation as described above. documented in this encounter Plan of Treatment Upcoming Encounters Date Type Department Care Team (Late st Contact Info) Description 10/06/2024 9:00 AM EST Office Visit Hematology/Oncology at [address] [phone] Shayla Vuong APRN [facility] HEMATOLOGY [place] [address] 10/06/2024 9:30 AM EST Scheduled View Only Hematology/Oncology at [address] [phone] Ekta Womack RN 10/06/2024 9:30 AM EST Infusion Hematology Oncology at [address] [phone] 10/07/2024 12:30 PM EST Infusion Hematology Oncology at [address] [address] 10/19/2024 10:00 AM EST Appointment [place] [address] Pia Cooper MD [facility] DR HEMATOLOGY [place] [address] 10/19/2024 11:00 AM EST Appointment [place] [address] Pia Cooper MD [facility] HEMATOLOGY [place] [address] 2024 9:00 AM EST Office Visit Hematology/Oncology at [address] [phone] Pia Cooper MD [facility] DR HEMATOLOGY [place] [address] 2024 9:30 AM EST Scheduled View Only Hematology/Oncology at [address] [phone] Ekta Womack, RN 2024 9:30 AM EST Infusion Hematology Oncology at [address] [phone] 11/17/2024 9:00 AM EST Office Visit Hematology/Oncology at [address] [phone] Shayla Vuong APRN [facility] DR HEMATOLOGY [place] [address] 11/17/2024 9:30 AM EST Scheduled View Only Hematology/Oncology at [address] [phone] Ekta Womack RN 11/17/2024 9:30 AM EST Infusion Hematology Oncology at [address] [phone] documented as of this encounter Visit Diagnoses Diagnosis Temporal lobe epilepsy, 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
--- OUTSIDE RECORDS SUMMARY | 2024-09-21 22:58 | XMS_ITS | Encounter Summary ---
[place] [address] Care Team Providers Care Vertica Architect Name Role Phone Jose Manuel Kimble MD Primary Care Provider Reason for Visit * Reason Onset Date Comments Medication Refill 11/17/2020 Encounter Details Date Type Department Care Team (Late st Contact Info) Description 11/17/2020 Ref[place] [phone] Kwabena Garcia MD [facility] [place] [address] Social History Tobacco Use Types Packs/Day Years [...] 11/16/20 1:11 PM Note Call Center / Diamond Saw Operator Message Prescription Refill Request ?? Clinical Diamond Saw Operator message ?? Provider patient sees in Clinic: Jose ?? Caller and relationship (if other than patient-full name): [employer] Call back Number: [phone] Ok to leave a message: y ?? [...] 11/17/2020 2:46 PM EST Call Center / Diamond Saw Operator Message Prescription Refill Request Clinical [place] message Provider patient sees in Clinic: Jose Caller and relationship (if other than patient-full name): pt Call back Number: [phone] Ok to leave a message: y Name of Med: lacosamide (VIMPAT) 200 mg Tablet Strength of Pills: 200mg Dosing Directions: Take 1 tablet by mouth 2 times daily. 30 or 90 Day Supply: 60 tablet [facility]acy: [facility] Last Appointment: 08/17/20 Next Appointment: (IF CALL IS FROM PATIENT/FAMILY AND THERE IS NO FOLLOW UP SCHEDULED REVIEW CHART TO SEE WHEN APPOINTMENT IS NEEDED AND SCHEDULE BEFORE SENDING MESSAGE) Is Patient out of Medication?: n documented in this encounter Plan of Treatment Upcoming Encounters Date Type Department Care Team (Late st Contact Info) Description 10/06/2024 9:00 AM EST Office Visit Hematology/Oncology at [address] [phone] Shayla Vuong, SUSTAINMENT LOGISTICS ANALYST [facility] [place] [address] 10/06/2024 9:30 AM EST Scheduled View Only Hematology/Oncology at [address] [phone] Ekta Womack RN 10/06/2024 9:30 AM EST Infusion Hematology Oncology at [address] [phone] 10/07/2024 12:30 PM EST Infusion Hematology Oncology at [address] [address] 10/19/2024 10:00 AM EST Appointment [place] [address] Pia Cooper MD [facility] [place] [address] 10/19/2024 11:00 AM EST Appointment [place] [address] Pia Cooper MD [facility] [place] [address] 2024 9:00 AM EST Office Visit Hematology/Oncology at [address] [phone] Pia Cooper MD [facility] [place] [address] 2024 9:30 AM EST Scheduled View Only Hematology/Oncology at [address] [phone] Ekta Womack RN 2024 9:30 AM EST Infusion Hematology Oncology at [address] [phone] 11/17/2024 9:00 AM EST Office Visit Hematology/Oncology at [address] [phone] Shayla Vuong, [facility] [place] [address] 11/17/2024 9:30 AM EST Scheduled View Only Hematology/Oncology at [address] [phone] Ekta Womack RN 11/17/2024 9:30 AM EST Infusion Hematology Oncology at [address] [phone] documented as of this encounter Visit Diagnoses Not on filedocumented in this encounter Care Teams Vertica Architect Relationship Specialty Start Date End Date Jose Manuel Kimble MD PCP - General Family Medicine 09/20/15 09/29/23 documented as of this encounter
--- OUTSIDE RECORDS SUMMARY | 2024-09-21 22:58 | XMS_ITS | Encounter Summary ---
[place] [address] Care Team Providers Care Infant Nanny Name Role Phone Danie Connor DO Primary Care Provider [phone] Reason for Referral * Diagnostic Test (Routine) - Closed Specialty Diagnoses / Procedures Referred By Contac t Referred To Contact Cardiology Diagnoses Encounter for echocardiogram before initiation of chemotherapy Lymphoma, unspecified body region, unspecified lymphoma type Procedures Echocardiogram Transthoracic Adriana Wilkins APRN [facility] DR HEMATOLOGY AND [place] [address] [facility] [place] [address] Referral ID Status Reason Start Date Expiration Date V isits Requested Visits Authorized [id number] Closed Specialty Service Requested 06/11/2024 08/09/2024 1 1 Reason for Visit * Diagnostic Test (Routine) - Closed Specialty Diagnoses / Procedures Referred By Contac t Referred To Contact Cardiology Diagnoses Encounter for echocardiogram before initiation of chemotherapy Lymphoma, unspecified body region, unspecified lymphoma type Procedures Echocardiogram Transthoracic Adriana Wilkins APRN [facility] DR HEMATOLOGY AND [place] [address] [facility] [place] [address] Referral ID Status Reason Start Date Expiration Date V isits Requested Visits Authorized [id number] Closed Specialty Service Requested 06/11/2024 08/09/2024 1 1 Encounter Details Date Type Department Care Team (Latest Contact Info) Description 06/24/2024 9:17 AM EDT - 06/24/2024 11:59 PM EDT Hospital Encounter Non-[place] [address] Adriana Wilkins CLOTH TRIMMER HAND [facility] HEMATOLOGY AND [place] [address] Encounter for echocardiogram before initiation of chemotherapy; [...] 9:00 AM EST Office Visit Hematology/Oncology at [address] [phone] Adriana Wilkins [facility] HEMATOLOGY AND [place] [address] 10/06/2024 9:30 AM EST Scheduled View Only Hematology/Oncology at [address] [phone] Ekta Womack RN 10/06/2024 9:30 AM EST Infusion Hematology Oncology at [address] [address] 10/07/2024 12:30 PM EST Infusion Hematology Oncology at [address] [address] 10/19/2024 10:00 AM EST Appointment [place] [address] Pia Cooper MD [facility] DR HEMATOLOGY AND [place] [address] 10/19/2024 11:00 AM EST Appointment [place] [address] Pia Cooper MD [facility] DR HEMATOLOGY AND [place] [address] 2024 9:00 AM EST Office Visit Hematology/Oncology at [address] [phone] Pia Cooper MD [facility] DR HEMATOLOGY AND [place] [address] 2024 9:30 AM EST Scheduled View Only Hematology/Oncology at [address] [address] Ekta Womack RN 2024 9:30 AM EST Infusion Hematology Oncology at [address] [address] 11/17/2024 9:00 AM EST Office Visit Hematology/Oncology at [address] [phone] Adriana Wilkins APRN [facility] [address] HEMATOLOGY [place] [address] 11/17/2024 9:30 AM EST Scheduled View Only Hematology/Oncology at [address] [phone] Ekta Womack RN 11/17/2024 9:30 AM EST Infusion Hematology Oncology at [address] [phone] documented as of this encounter [...] AM EDT Narrative 06/24/2024 11:10 AM EDT [address] [place] [address] ? Echocardiogram Report Name: MO CAMPOS Saroj ? Study Date: 06/24/2024 10:15 AMBP: 130/86 mmHg ? Patient Location: 4A : 1975 ? Height: 173 cm ? Account: [id number] Age: 48 yrs ? Weight: 90 kg Gender: Male ?BSA: 2.0 m2 Ordering Physician: ADRIANA WILKINS Referring Physician: ADRIANA WILKINS Performed By: Clotilde Kaur RDCS Reason For Study: Encounter for echocardiogram before initiation of chemotherapy, Lymphoma Exam Location: [facility]. Interpretation Summary -Left ventricular [...] findings. No comparison study is available. Procedure Complete-[id number]. Left ventricular strain. Satisfactory quality. Left Ventricle [...] Note Júnior Higgins MD - 06/24/2024 [address] [place] [address] Echocardiogram Report Name: MO CAMPOS Study Date: 0:15 AMBP: 130/86 mmHg Patient Location: : 1975 Height: 173 cm Account: [id number] Age: 48 yrs Weight: 90 kg Gender: Male BSA: 2.0 m2 Ordering Physician: ADRIANA WILKINS Referring Physician: ADRIANA WILKINS Performed By: Clotilde Kaur RDCS Reason For Study: Encounter for echocardiogram before initiation ofchemotherapy, Lymphoma Exam Location: [facility]. Interpretation Summary -Left ventricular [...] findings. No comparison study is available. Procedure Complete-68088. Left ventricular strain. Satisfactory quality. Left Ventricle [...] type documented in this encounter Care Teams Infant Nanny Relationship Specialty Start Date End Date Danie Connor DO [address] [place] [address] PCP - General Family Medicine 06/04/24 documented as of this encounter
--- OUTSIDE RECORDS SUMMARY | 2024-09-21 22:58 | XMS_ITS | Encounter Summary ---
Author Organization [place] [address] Care Team Providers Care Shuttle Fixer Name Role Phone Geeta Danie Bustos Primary Care Provider + [phone] Reason for Visit * Auth/Cert (Routine) Specialty Diagnoses / Procedures Referred By Kymberly t Referred To Contact Diagnoses Lymphoma, unspecified body region, unspecified lymphoma type right submandibular lymphadenopathy Procedures PRO BIOPSY/EXCISION LYMPH NODE OPEN SUPERFICIAL BIOPSY OR EXCISION OF LYMPH NODE(S), OPEN, SUPERFICIAL (WRVU 3.79) Dorinda Pastrana MD [facility] [place] [address] [facility] Referral ID Status Reason Start Date Expiration Date Visits Re quested Visits Authorized [id number] 1 1 Encounter Details Date Type Department Care Team (Latest Contact Info) Description 06/28/2024 7:24 AM EDT - 06/28/2024 11:18 AM EDT Hospital Encounter [place] [address] Dorinda Pastrana MD [facility] [place] [address] Lymphoma, unspecified body region, unspecified lymphoma type [...] Pastrana's office with any questions or concerns: [phone] documented in this encounter Medications at Time [...] Pastrana MD - 06/28/2024 9:16 AM EDT [facility] [place] Patient Name: Brett Campos : [id number] MR#: [id number] Case Date: 06/28/2024 Surgeon: Surgeons and Role: [...] This was injected with 1% lidocaine with [id number] epinephrine. Incision was made and subplatysmal flap [...] AM EST Office Visit Hematology/Oncology at [address] [phone] Shayla Vuong, [facility] [address] [place] [address] 10/06/2024 9:30 AM EST Scheduled View Only Hematology/Oncology at [address] [phone] Ekta Womack RN 10/06/2024 9:30 AM EST Infusion Hematology Oncology at [address] [phone] 10/07/2024 12:30 PM EST Infusion Hematology Oncology at [address] [phone] 10/19/2024 10:00 AM EST Appointment [place] [address] Pia Cooper MD [facility] [address] [place] [address] 10/19/2024 11:00 AM EST Appointment [place] [address] Pia Cooper MD [facility] [address] [place] [address] 2024 9:00 AM EST Office Visit Hematology/Oncology at [address] [phone] Pia Cooper MD [facility] [place] [address] 2024 9:30 AM EST Scheduled View Only Hematology/Oncology at [address] [phone] Ekta Womack RN 2024 9:30 AM EST Infusion Hematology Oncology at [address] [phone] 11/17/2024 9:00 AM EST Office Visit Hematology/Oncology at [address] [phone] Shayla Vuong, [facility] HEMATOLOGY AND [place] [address] 11/17/2024 9:30 AM EST Scheduled View Only Hematology/Oncology at [address] [phone] Ekta Womack RN 11/17/2024 9:30 AM EST Infusion Hematology Oncology at [address] [phone] documented as of this encounter Procedures Procedure [...] AM EDT Biopsy/Excision Lymph Node Open Superficial (76120) Yes 06/28/2024 8:51 AM EDT Lymphoma, unspecified body region, unspecified lymphoma type BIOPSY OR EXCISION OF LYMPH NODE(S),OPEN,SUPERFICIAL Routine 06/28/2024 7:44 AM EDT Lymphoma, unspecified body region, unspecified lymphoma type documented in this encounter Results * chromo report acquired (06/28/2024 9:55 AM EDT) Cytogenetics Acquired Report Final Report ? [id number] Specimen Type: Fixed Tissue Specimen Condition: 1 [...] using dual-color, break-apart probes for BCL6/3q27 rearrangement ([employer] shows 1.0% of 100 cells with a BCL6 rearrangement signal pattern. This is within the acceptable reference limits (0-7.4%). Thus, there is no evidence for BCL6/3q27 gene rearrangement. Interphase FISH analysis using dual-color, break-apart probes for MYC/8q24 rearrangement ([employer] shows 0% of 100 cells with a MYC rearrangement signal pattern. This is within acceptable reference limits (0-6.0%). Thus, there is no evidence for MYC/8q24 gene rearrangement. Interphase FISH analysis using dual-color, dual-fusion probes for MYC-IGH/t(8;14)(q2 4;q32) ([employer] shows 0% of 100 cells with an MYC-IGH rearrangement signal pattern. This is within acceptable reference limits (0-3.0%). Thus, there is no evidence for MYC-IGH/t(8;14) gene rearrangement. Interphase FISH analysis using dual-color, dual-fusion probes for CCND1-IGH/t(11;14) (q13;q32) ([employer] shows 0% of 100 cells with an CCND1-IGH rearrangement signal pattern. This is within acceptable reference limits (0-3.0%). Thus, there is no evidence for CCND1-IGH/t(11;14) gene rearrangement. Interphase FISH analysis using dual-color, break-apart probes for BCL2/18q21 rearrangement ([employer] shows 0% of 100 cells with BCL2 rearrangement signal pattern. This is within acceptable reference limits (0-6.0%). Thus, there is no evidence for BCL2/18q21 gene rearrangement. ---Recommendation- -- Correlation with clinical and pathological studies is suggested. ---Limitations & Disclaimers--- The FISH test was developed and its performance characteristics were determined by the [facility] ([facility] [place] Cytogenetics Laboratory as required [...] the test? s accuracy and precision. The [facility] [place] Cytogenetics Laboratory is certified under the CLIA? 88 as qualified to perform high complexity clinical laboratory testing. Chromosome alterations outside the regions complementary to these DNA FISH probes will not be detected. 07.11.24 (Electronic Signature) Verified By: Cheri Ph.D., [facility], [facility]son A Clinical News Clipping Cutter/Mol ecular Pet Supplies Salesperson [facility] 06/28/2024 9:55 AM EDT 06/30/2024 11:19 AM EDT Dorinda Pastrana MD HEMATOLOGY ORDERABLE S [facility] [place] [address] * (ABNORMAL) Surgical Pathology Report (06/28/2024 9:55 AM EDT) Surgical Pathology Report [id number] ? Location: [place]; [facility]; A The signing pathologist has (i) examined the relevant preparation(s) for the specimen(s) and (ii) rendered or confirmed the diagnosis(es). . ?Surgical Pathology DIAGNOSIS A - Right submandibular mass - ??Diffuse large B-cell lymphoma- NOS (See Discussion) Electronically signed by: ?Shira SALAS, Henry Verified: ??06/30/2024 17:09 ??Hematopathologist Performed at: ??-[facility] [place]. [place]ology, [place] [address] School Library Media Program Director: Jami Garza MD, [facility], ??CLIA Certificate: [id number] SYNOPTIC THIS RESULT REQUIRES PHYSICIAN/A.P.P. FOLLOW UP DISCUSSION The submandibular mass contains a diffuse proliferation ? of large abnormal lymphocytes with vesicular nuclear chromatin, prominent nucleoli and ample cytoplasm. Lymph nodes submitted with the mass show partial involvement. ? Flow cytometry ([id number]) ?? showed a CD10+ kappa immunoglobulin light [...] diagnostic tests. Morphologic appearance : ?DLBCL like Oogr-hz-iptsyo classification : ?? Germinal center BCl2/MYC double-expressor [...] lymphoid neoplasms . Blood . 2016. 127 (20):0114-2739. Troy CP et al . Blood 103:275-282 [...] flow cytometry. Tissue is submitted to cytogenetics. Director Of Loss Prevention sections in 5 cassettes labeled A1-A5. A1-A3: Director Of Loss Prevention fleshy tissue A4: Single bisected possible lymph node A5: Single bisected possible lymph node ??jnr(A) [facility] AP Specimen 06/28/2024 9:55 AM EDT Dorinda Pastrana MD PATHOLOGY/CYTOLOGY O RDERABLES [facility] [place] [address] * Specimen to Pathology (06/28/2024 9:55 AM EDT) AP Specimen 06/28/2024 9:55 AM EDT 06/28/2024 9:55 AM EDT Narrative [facility] - 06/28/2024 9:55 AM EDT Specimen requisition ordered. ??Separate Pathology report to follow Dorinda Pastrana MD PATHOLOGY/CYTOLOGY O RDERABLES Performing Organization Address [facility]/ZIP Co de Phone Number [facility] [place] [address] * chromo report acquired (06/28/2024 9:30 AM EDT) Cytogenetics Acquired Report Final Report ? [id number] Specimen Type: Lymph Node Specimen Condition: ~1.4cm, x1.4cm, x1.8cm, adequate Collection Date/Time: 06/28/2024 09:30 Received Date/Time: 06/28/2024 11:31 Indication: ??Lymphoma ---Results--- Please see the chromosome analysis scanned report in eD-H corresponding to this specimen. ??This report was completed by [facility] and is located in 'Chart Review' under the 'Media' tab. ??The document name is titled External Genetic Study. ---Karyotype--- See comments. ---Preparation-- - Culture Type: Other FISH Method: ??N/A ---Comments--- The specimen was referred to [facility] ([place], [place], Tel: ?? ) for cytogenetic analysis. ---Disclaimer--- Please note that the above is not a patient lab result and does not have an interpretative component. ??It is only provided to indicate the location of the final report in the EMR for this individual, which has the official interpretations. 08.20.24 (Electronic Signature) Verified By: Lab Review, Cytogenetics [facility] 06/28/2024 9:30 AM EDT 06/28/2024 11:31 AM EDT Dorinda Pastrana MD HEMATOLOGY ORDERABLE S Performing Organization Address [facility]/ZIP Co de Phone Number [facility] [place] [address] * Flow Cytometry Report (06/28/2024 9:30 AM EDT) Flow Cytometry Report [id number] ? Location: [facility]; [facility]; A The signing pathologist has (i) examined the relevant preparation(s) for the specimen(s) and (ii) rendered or confirmed the diagnosis(es). . ?Flow Cytometry DIAGNOSIS Flow cytometry diagnosis: CD10+ ??kappa immunoglobulin light chain restricted B-cell population identified. see discussion Electronically signed by: ?Shira SALAS, Henry Verified: ??06/29/2024 14:16 ??Hematopathologist Performed at: ??-[facility] [place]. [place]ology, [place] [address] School Library Media Program Director: Jami Garza MD, FCAP, ??CLIA Certificate: [id number] DISCUSSION Cell viability was 84% as assessed [...] by the Clinical Flow Cytometry Laboratory at [facility]. It has not been cleared or [...] high complexity clinical laboratory testing. SPECIMEN PROCESSING [id number] Cells for immunophenotypic analysis were derived from right submandibular mass. CD45 vs side scatter gating was utilized to identify a lymphoid analysis region that comprises approximately 87-89% of all cells. The following markers were assessed: CD2, CD3, CD4, CD5, CD7, CD8, CD10, CD19, CD20, CD23, CD38, CD45, CD56, FMC-7, kappa light chain, and lambda light chain. CLINICAL INFORMATION adenopathy [facility] 06/28/2024 9:30 AM EDT Dorinda Pastrana MD PATHOLOGY/CYTOLOGY O RDERABLES Performing Organization Address [facility] [place] [address] * Immunophenotyping Flow Cytometry (06/28/2024 9:30 AM EDT) Immunophenotyping Flow See Comment [facility] Comment: When completed by the Pathologist, the Flow Cytometry Report ([id number]) will display under the Pathology Results section within eDH. Other Other / Unknown 06/28/2024 9 :30 AM EDT 06/28/2024 10:53 AM EDT Narrative Resulting Agency Comment Spec In Lab Dorinda Pastrana MD HEMATOLOGY ORDERABLE S Performing Organization Address [facility] [place] [address] documented in this encounter Visit Diagnoses Diagnosis [...] MD) documented in this encounter Care Teams Shuttle Fixer Relationship Specialty Start Date End Date Danie Connor DO [address] [place] [phone] PCP - General Family Medicine 06/04/24 documented as of this encounter
--- OUTSIDE RECORDS SUMMARY | 2024-09-21 22:58 | XMS_ITS | Encounter Summary ---
[place] [address] Care Team Providers Care Appliance Adjuster Name Role Phone Danie Connor DO Primary Care Provider [phone] Reason for Visit * Diagnostic Test (STAT) - Closed Specialty Diagnoses / Procedures Referred By Contac t Referred To Contact Radiology Diagnoses Lymphoma, unspecified body region, unspecified lymphoma type Procedures NM PET CT Skull Base to Mid-thigh Brett Herr MD [facility] DR H[place]ATOLOGY [place] [address] [place] [address] Referral ID Status Reason Start Date Expiration Date V isits Requested Visits Authorized [id number] Closed Specialty Service Requested 06/11/2024 08/09/2024 1 1 Encounter Details Date Type Department Care Team (Latest Contact Info) Description 06/25/2024 6:15 AM EDT - 06/25/2024 11:59 PM EDT Hospital En[place] [address] Brett Herr MD [facility] DR [place]EMATOLOG[place] [address] Discharge Disposition: Home Social History [...] 9:00 AM EST Office Visit Hematology/Oncology at [address] [phone] Shayla Vuong APRN [facility] [place] [address] 10/06/2024 9:30 AM EST Scheduled View Only Hematology/Oncology at [address] [phone] Ekta Womack RN 10/06/2024 9:30 AM EST Infusion Hematology Oncology at [address] [phone] 10/07/2024 12:30 PM EST Infusion Hematology Oncology at [address] [address] 10/19/2024 10:00 AM EST Appoint[place] [address] Pia Cooper MD [facility] [place] [address] 10/19/2024 11:00 AM EST [place]oint[place] [address] Pia Cooper MD [facility] DR [place]AT[place] [address] 2024 9:00 AM EST Office Visit Hematology/Oncology at [address] [phone] Pia Cooper MD [facility] [place] [address] 2024 9:30 AM EST Scheduled View Only Hematology/Oncology at [address] [phone] Ekta Womack, RN 2024 9:30 AM EST Infusion Hematology Oncology at [address] [phone] 11/17/2024 9:00 AM EST Office Visit Hematology/Oncology at [address] [phone] Shayla Vuong APRN [facility] [place] [address] 11/17/2024 9:30 AM EST Scheduled View Only Hematology/Oncology at [address] [address] Ekta Womack, RN 11/17/2024 9:30 AM EST Infusion Hematology Oncology at [address] [address] documented as of this encounter Procedures Procedure [...] OF CARE TEST ORDERABLES Performing Organization Address City/State/[facility] Co de Phone Number [facility] [place] [address] documented in this encounter Visit Diagnoses Not on filedocumented in this encounter Care Teams Appliance Adjuster Relationship Specialty Start Date End Date Danie Connor DO [address] [place] [address] PCP - General Family Medicine 06/04/24 documented as of this encounter
--- OUTSIDE RECORDS SUMMARY | 2024-09-21 22:58 | XMS_ITS | Encounter Summary ---
Author Organization [facility] [place] [address] Care Team Providers Care Product Development Chemist Name Role Phone Jose Manuel Kimble MD Primary Care Provider [phone] Reason for Visit * Reason Onset Date Comments Prior Authorization 04/23/2021 Encounter Details Date Type Department Care Team ([facility] st Contact Info) Description 04/23/2021 Telephone [place] [phone] Heydi Sanchez MD [facility] [place] [address] Prior Authorization Social History Tobacco Use Types [...] than patient-full name): Self Call Back Number: [phone] Ok to leave a message: yes Name [...] Company: Medicaid [place] Pharmacy Benefits/Coverage ID #: [id number] Pharmacy Benefits/Coverage Company Phone Number: Pharmacy used by patient: [facility] Disposition of Call: ??? Red Arrow Message Reason red arrow Message: Pt out of medication Nurse/[place] contacted via: Message: y Call: n Pager: [...] 9:00 AM EST Office Visit Hematology/Oncology at [address] [phone] Shayla Vuong APRN [facility] DR [place] [address] 10/06/2024 9:30 AM EST Scheduled View Only Hematology/Oncology at [address] [phone] Ekta Womack RN 10/06/2024 9:30 AM EST Infusion Hematology Oncology at [address] [address] 10/07/2024 12:30 PM EST Infusion Hematology Oncology at [address] [phone] 10/19/2024 10:00 AM EST Appointment [place] [address] Pia Cooper MD [facility] DR [place] [address] 10/19/2024 11:00 AM EST Appointment [place] [address] Pia Cooper MD [facility] DR [place] [address] 2024 9:00 AM EST Office Visit Hematology/Oncology at [address] [address] Pia Cooper MD [facility] DR [place] [address] 2024 9:30 AM EST Scheduled View Only Hematology/Oncology at [address] [phone] Ekta Womack RN 2024 9:30 AM EST Infusion Hematology Oncology at [address] [address] 11/17/2024 9:00 AM EST Office Visit Hematology/Oncology at [address] [phone] Shayla Vuong APRN [facility] [place] [address] 11/17/2024 9:30 AM EST Scheduled View Only Hematology/Oncology at [address] [phone] Ekta Womack RN 11/17/2024 9:30 AM EST Infusion Hematology Oncology at [address] [phone] documented as of this encounter Visit Diagnoses Not on filedocumented in this encounter Care Teams Product Development Chemist Relationship Specialty Start Date End Date Jose Manuel Kimble MD PCP - General Family Medicine 09/20/15 09/29/23 documented as of this encounter
--- OUTSIDE RECORDS SUMMARY | 2024-09-21 22:58 | XMS_ITS | Encounter Summary ---
[place] [address] Care Team Providers Care Equipment Application Specialist Name Role Phone Geeta Danie Bustos Primary Care Provider [phone] Encounter Details Date Type Department Care Team (Latest Contact Info) Description 06/04/2024 10:13 AM EDT - 06/04/2024 11:59 PM EDT [place] [phone] Discharge Disposition: Home Social History Tobacco Use [...] AM EST Office Visit Hematology/Oncology at [address] [phone] Shayla Vuong APRN [facility] DR [place]EMATOLOGY [place] [address] 10/06/2024 9:30 AM EST Scheduled View Only Hematology/Oncology at [address] [phone] Ekta Womack RN 10/06/2024 9:30 AM EST Infusion Hematology Oncology at [address] [address] 10/07/2024 12:30 PM EST Infusion Hematology Oncology at [address] [address] 10/19/2024 10:00 AM EST Appointment [place] [address] Pia Cooper MD [facility] DR [place] [address] 10/19/2024 11:00 AM EST Appointment [place] [address] Pia Cooper MD [facility] DR [place]AT[place] [address] 2024 9:00 AM EST Office Visit Hematology/Oncology at [address] [address] Pia Cooper MD [facility] DR [place]EMAT[place] [address] 2024 9:30 AM EST Scheduled View Only Hematology/Oncology at [address] [address] Ekta Womack RN 2024 9:30 AM EST Infusion Hematology Oncology at [address] [address] 11/17/2024 9:00 AM EST Office Visit Hematology/Oncology at [address] [phone] Shayla Vuong APRN [facility] DR HEMATOLOGY [place] [address] 11/17/2024 9:30 AM EST Scheduled View Only Hematology/Oncology at [address] [phone] Ekta Womack RN 11/17/2024 9:30 AM EST Infusion Hematology Oncology at [address] [phone] documented as of this encounter Procedures Procedure Name Priority Date/Time Associated Diagnosis Comments SURGICAL PATHOLOGY REPORT Routine 06/04/2024 10:13 AM EDT documented in this encounter Results * (ABNORMAL) Surgical Pathology Report (06/04/2024 10:13 AM EDT) Final Diagnosis [id number] ? Location: [facility] The signing pathologist has (i) examined the relevant preparation(s) for the specimen(s) and (ii) rendered or confirmed the diagnosis(es). . ?Surgical Pathology DIAGNOSIS CONSULTATION CASE Outside slide(s) labeled [id number], collection date 05/19/2024: Mass, adjacent to right submandibular gland, core biopsy : Atypical CD10+ ? Chronic lymphoproliferative disorder. see discussion Electronically signed by: ?Shira SALAS, Henry Verified: ??06/07/2024 9:50 ?? Hematopathologist Performed at: ??-[facility] Dept. of Pathology, [place] [address] Slubber Tender: Jami Garza MD, FCAP, ??CLIA Certificate: [id number] SYNOPTIC THIS RESULT REQUIRES PHYSICIAN/A.P.P. FOLLOW UP [...] CONSULTATION CASE A - 11 slide(s) labeled [id number], collection date 05/19/2024. [id number] CARBON COPY: [facility] Surgical Pathology Department [facility], [facility], [address]nd Floor [address] [place], [place] ??[address] CLINICAL INFORMATION Mass SPECIMEN PROCESSING [facility] ([facility]) pathology slide(s) are reviewed. Refer to Diagnosis and Specimen Submitted for specific case information. For the full text of the [facility] report(s) please refer to the Chart Review Media tab in the electronic health record ( ??eDH).(A) 06/07/2024 9:[address] [facility] Consult Case 06/04/2024 10:1 3 AM EDT 06/04/2024 10:13 AM EDT Brett Herr MD PATHOLOGY/CYTOLOGY ORDERABLES [facility] [place] [address] documented in this encounter Visit Diagnoses Not on filedocumented in this encounter Care Teams Equipment Application Specialist Relationship Specialty Start Date End Date Danie Connor DO [address] [place] [phone] PCP - General Family Medicine 06/04/24 documented as of this encounter
--- OUTSIDE RECORDS SUMMARY | 2024-09-21 22:59 | XMS_ITS | Encounter Summary ---
[place] [address] Care Team Providers Care Weigher Production Name Role Phone Jose Manuel Kimble MD Primary Care Provider [phone] Reason for Visit * Reason Onset Date Comments Medication Refill 11/16/2020 Encounter Details Date Type Department Care Team (Late st Contact Info) Description 11/16/2020 Ref[place] [phone] Kwabena Garcia MD [facility] [place] [address] Social History Tobacco Use Types Packs/Day Years [...] 11/16/2020 1:08 PM EST Call Center / [place] Message Prescription Refill Request Clinical Printer Assistant message Provider patient sees in Clinic: Jose Caller and relationship (if other than patient-full name): Carena Call back Number: [phone] Ok to leave a message: y Name of Med: lamoTRIgine (LAMICTAL Strength of Pills: 200mg Dosing Directions: take 200mg by mouth 2 times daily 30 or 90 Day Supply: 30 Pharmacy: [facility] Last Appointment: 08/20 Next Appointment: (IF [...] 9:00 AM EST Office Visit Hematology/Oncology at [address] [address] Shayla Vuong APRN [facility] DR [place] [address] 10/06/2024 9:30 AM EST Scheduled View Only Hematology/Oncology at [address] [address] Ekta Womack RN 10/06/2024 9:30 AM EST Infusion Hematology Oncology at [address] [address] 10/07/2024 12:30 PM EST Infusion Hematology Oncology at [address] [address] 10/19/2024 10:00 AM EST Appointment [place] [address] Pia Cooper MD [facility] [place] [address] 10/19/2024 11:00 AM EST Appointment [place] [address] Pia Cooper MD [facility] DR [place] [address] 2024 9:00 AM EST Office Visit Hematology/Oncology at [address] [address] Pia Cooper MD [facility] [place] [address] 2024 9:30 AM EST Scheduled View Only Hematology/Oncology at [address] [address] Ekta Womack, RN 2024 9:30 AM EST Infusion Hematology Oncology at [address] [phone] 11/17/2024 9:00 AM EST Office Visit Hematology/Oncology at [address] [phone] Shayla Vuong, [facility] [place] [address] 11/17/2024 9:30 AM EST Scheduled View Only Hematology/Oncology at [address] [address] Ekta Womack, RN 11/17/2024 9:30 AM EST Infusion Hematology Oncology at [address] [phone] documented as of this encounter Visit Diagnoses Not on filedocumented in this encounter Care Teams Weigher Production Relationship Specialty Start Date End Date Jose Manuel Kimble MD PCP - General Family Medicine 09/20/15 09/29/23 documented as of this encounter
--- OUTSIDE RECORDS SUMMARY | 2024-09-21 22:59 | XMS_ITS | Encounter Summary ---
[place] [address] Care Team Providers Care Floorworker Name Role Phone Jose Manuel Kimble MD Primary Care Provider [phone] Reason for Visit * Reason Onset Date Comments Medication Refill 04/30/2017 Encounter Details Date Type Department Care Team ([facility] Contact Info) Description 04/30/2017 [place] [phone] Margarita Munoz CMA Medication Refill Social History [...] to requested pharmacy, [facility] [facility] [address] [place]. documented in this encounter Plan of Treatment Upcoming Encounters Date Type Department Care Team ([facility] Contact Info) Description 10/06/2024 9:00 AM EST Office Visit Hematology/Oncology at [address] [phone] Shayla Vuong, CLOTH MERC[employer]ING SUPERVISOR [facility] HEMATOLOGY AND [place] [address] 10/06/2024 9:30 AM EST Scheduled View Only Hematology/Oncology at [address] [phone] Ekta Womack, RN 10/06/2024 9:30 AM EST Infusion Hematology Oncology at [address] [address] 10/07/2024 12:30 PM EST Infusion Hematology Oncology at [address] [address] 10/19/2024 10:00 AM EST Appointment [place] [address] Pia Cooper MD [facility] DR HEMATOLOGY AND [place] [address] 10/19/2024 11:00 AM EST Appointment [place] [address] Pia Cooper MD [facility] DR HEMATOLOGY AND [place] [address] 2024 9:00 AM EST Office Visit Hematology/Oncology at [address] [phone] Pia Cooper MD [facility] DR HEMATOLOGY AND [place] [address] 2024 9:30 AM EST Scheduled View Only Hematology/Oncology at [address] [phone] Ekta Womack, RN 2024 9:30 AM EST Infusion Hematology Oncology at [address] [address] 11/17/2024 9:00 AM EST Office Visit Hematology/Oncology at [address] [phone] Shayla Vuong APRN [facility] DR HEMATOLOGY AND [place] [address] 11/17/2024 9:30 AM EST Scheduled View Only Hematology/Oncology at [address] [phone] Ekta Womack RN 11/17/2024 9:30 AM EST Infusion Hematology Oncology at [address] [phone] documented as of this encounter Visit Diagnoses Not on filedocumented in this encounter Care Teams Floorworker Relationship Specialty Start Date End Date Jose Manuel Kimble MD PCP - General Family Medicine 09/20/15 09/29/23 documented as of this encounter
--- OUTSIDE RECORDS SUMMARY | 2024-09-21 22:59 | XMS_ITS | Encounter Summary ---
[place] [address] Care Team Providers Care Operator Electronic Warfare Name Role Phone Jose Manuel Kimble MD Primary Care Provider [phone] Reason for Visit * Reason Onset Date Comments Other 07/20/2020 Encounter Details Date Type Department Care Team (Late st Contact Info) Description 07/20/2020 [place] [phone] Kwabena Garcia MD [facility] DR NEUROLOGY DEPT [address] Other Social History Tobacco Use Types Packs/Day [...] 07/20/2020 8:26 AM EDT Call Center / [employer] Message - General Issue Call Provider patient sees in Clinic: Dr. Garcia Caller and relationship (if other than patient-full name): Faina East APRN - Pt's PCP at [facility] Call back number: [phone] Ok to leave a message: yes Reason [...] AM EST Office Visit Hematology/Oncology at [address] [address] Shayla Vuong APRN [facility] HEMATOLOGY AND ONCOLOGY [address] 10/06/2024 9:30 AM EST Scheduled View Only Hematology/Oncology at [address] [phone] Ekta Womack RN 10/06/2024 9:30 AM EST Infusion Hematology Oncology at [address] [address] 10/07/2024 12:30 PM EST Infusion Hematology Oncology at [address] [address] 10/19/2024 10:00 AM EST Appointment [place] [address] Pia Cooper MD [facility] HEMATOLOGY [place] [address] 10/19/2024 11:00 AM EST Appointment [place] [address] Pia Cooper MD [facility] DR HEMATOLOGY AND ONCOLOGY [address] 2024 9:00 AM EST Office Visit Hematology/Oncology at [address] [phone] Pia Cooper MD [facility] HEMATOLOGY AND ONCOLOGY [address] 2024 9:30 AM EST Scheduled View Only Hematology/Oncology at [address] [phone] Ekta Womack, RN 2024 9:30 AM EST Infusion Hematology Oncology at [address] [phone] 11/17/2024 9:00 AM EST Office Visit Hematology/Oncology at [address] [phone] [address] Vuong [facility] HEMATOLOGY AND ONCOLOGY [address] 11/17/2024 9:30 AM EST Scheduled View Only Hematology/Oncology at [address] [phone] Ekta Womack, RN 11/17/2024 9:30 AM EST Infusion Hematology Oncology at [address] [phone] documented as of this encounter Visit Diagnoses Not on filedocumented in this encounter Care Teams Operator Electronic Warfare Relationship Specialty Start Date End Date Jose Manuel Kimble MD PCP - General Family Medicine 09/20/15 09/29/23 documented as of this encounter
--- OUTSIDE RECORDS SUMMARY | 2024-09-21 22:59 | XMS_ITS | Encounter Summary ---
[place] [address] Care Team Providers Care Billing Customer Service Representative Name Role Phone Jose Manuel Kimble MD Primary Care Provider [phone] Reason for Referral * Diagnostic Test (Routine) - Closed Specialty Diagnoses / Procedures Referred By Kymberly penaloza Referred To Contact Radiology Diagnoses Localization-related epilepsy, intractable Procedures MRI Brain WO Contrast Kwabena Garcia MD [facility] [place] [address] [place] [address] Referral ID Status Reason Start Date Expiration Date V isits Requested Visits Authorized [id number] Closed Specialty Service Requested 11/09/2015 01/07/2016 1 1 Reason for Visit * Auth/Cert - Closed Specialty Diagnoses / Procedures Referred By Kymberly penaloza Referred To Contact Diagnoses Refractory Seizures Procedures PRG COMBINED EEG AND VIDEO REORD AND INTERP 24HRS FOR CEREBRAL SEIZURES Referral ID Status Reason Start Date Expiration Date Visits Re quested Visits Authorized [id number] Closed 1 1 Encounter Details Date Type Department Care Team (Late st Contact Info) Description 11/20/2015 11:42 AM EST - 11/20/2015 2:23 PM EST Hospital [place] [address] Kwabena Garcia MD [facility] [place] [address] Localization-relate d epilepsy, intractable Discharge Disposition: Home [...] AM EST Office Visit Hematology/Oncology at [address] [phone] Shayla Vuong APRN [facility] HEMATOLOGY [place] [address] 10/06/2024 9:30 AM EST Scheduled View Only Hematology/Oncology at [address] [phone] Ekta Womack RN 10/06/2024 9:30 AM EST Infusion Hematology Oncology at [address] [phone] 10/07/2024 12:30 PM EST Infusion Hematology Oncology at [address] [address] 10/19/2024 10:00 AM EST Appointment [place] [address] Pia Cooper MD [facility] DR HEMATOLOGY [place] [address] 10/19/2024 11:00 AM EST Appointment [place] [address] Pia Cooper MD [facility] DR HEMATOLOGY [place] [address] 2024 9:00 AM EST Office Visit Hematology/Oncology at [address] [phone] Pia Cooper MD [facility] DR HEMATOLOGY [place] [address] 2024 9:30 AM EST Scheduled View Only Hematology/Oncology at [address] [address] Ekta Womack RN 2024 9:30 AM EST Infusion Hematology Oncology at [address] [address] 11/17/2024 9:00 AM EST Office Visit Hematology/Oncology at [address] [address] Shayla Vuong APRN [facility] DR HEMATOLOGY [place] [address] 11/17/2024 9:30 AM EST Scheduled View Only Hematology/Oncology at [address] [phone] Ekta Womack RN 11/17/2024 9:30 AM EST Infusion Hematology Oncology at [address] [phone] documented as of this encounter [...] epilepsy surgery, s/p L TLE 1998 at [facility] TECHNIQUE: MRI of the head was [...] epilepsy surgery, s/p L TLE 1998 at [facility] TECHNIQUE: MRI of the head was [...] epilepsy documented in this encounter Care Teams Billing Customer Service Representative Relationship Specialty Start Date End Date Jose Manuel Kimble MD PCP - General Family Medicine 09/20/15 09/29/23 documented as of this encounter
--- OUTSIDE RECORDS SUMMARY | 2024-09-21 22:59 | XMS_ITS | Encounter Summary ---
Author Organization [facility] [place] [address] Care Team Providers Care Production Engineer Track Name Role Phone Jose Manuel Kimble MD Primary Care Provider [phone] Reason for Visit * Consultation (Routine) - Closed Specialty Diagnoses / Procedures Referred By Contfernando t Referred To Contact Neurology Diagnoses Epilepsy, unspecified, not intractable, without status epilepticus Unspecified convulsions Epilepsy Seizure Disorder Radha Madison MD [address] [place] [address] Kwabena Garcia MD [facility] [address] Referral ID Status Reason Start Date Expiration Date Visits Re quested Visits Authorized [id number] Closed 10/06/2019 10/05/2020 1 1 Encounter Details Date Type Department Care Team (Late Contact Info) Description 02/21/2020 3:30 PM EDT [place] [address] Kwabena Garcia MD [facility] [address] Social History Tobacco Use Types Packs/Day Years [...] Garcia MD - 02/21/2020 12:05 PM EDT [facility] [place] [address] Re - Brett Campos 1975 PCP - Jose Manuel Kimble MD Follow-up Evaluation I saw Brett Campos today for a scheduled follow-up evaluation via telephone encounter. Brett Campos is a 44 y.o. with a history of seizures. Epilepsy Type/Syndrome: LRE, s/p LATL 1998 at [facility], continuing seizures Seizure history: Onset [...] lazy eye. Family Hx: No epilepsy MRI: [facility] [place] left [facility] Video EE11/24/15 1. [...] this is from the medications? 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 Currently driving: No Review of Systems: Review [...] AM EST Office Visit Hematology/Oncology at [address] [phone] Shayla Vuong APRN [facility] DR [place]AT[place]Y [place] [address] 10/06/2024 9:30 AM EST Scheduled View Only Hematology/Oncology at [address] [phone] Ekta Womack RN 10/06/2024 9:30 AM EST Infusion Hematology Oncology at [address] [address] 10/07/2024 12:30 PM EST Infusion Hematology Oncology at [address] [address] 10/19/2024 10:00 AM EST Appointment [place] [address] Pia Cooper MD [facility] DR [place] [address] 10/19/2024 11:00 AM EST Appointment [place] [address] Pia Cooper MD [facility] DR [place] [address] 2024 9:00 AM EST Office Visit Hematology/Oncology at [address] [address] Pia Cooper MD [facility] DR [place] [address] 2024 9:30 AM EST Scheduled View Only Hematology/Oncology at [address] [phone] Ekta Womack RN 2024 9:30 AM EST Infusion Hematology Oncology at [address] [address] 11/17/2024 9:00 AM EST Office Visit Hematology/Oncology at [address] [phone] Shayla Vuong APRN [facility] DR [place]EMATOLOG[place] [address] 11/17/2024 9:30 AM EST Scheduled View Only Hematology/Oncology at [address] [phone] Ekta Womack RN 11/17/2024 9:30 AM EST Infusion Hematology Oncology at [address] [phone] documented as of this encounter Visit Diagnoses Diagnosis 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
--- OUTSIDE RECORDS SUMMARY | 2024-09-21 22:59 | XMS_ITS | Encounter Summary ---
[place] [address] Care Team Providers Care Presser And Blocker Knitted Goods Name Role Phone Jose Manuel Kimble MD Primary Care Provider [phone] Encounter Details Date Type Department Care Team (Late st Contact Info) Description 01/16/2016 [place] [phone] Colby Ellis MD [facility] [place] [address] Social History Tobacco Use Types Packs/Day Years [...] 9:00 AM EST Office Visit Hematology/Oncology at [address] [address] Shayla Vuong APRN [facility] [place] [address] 10/06/2024 9:30 AM EST Scheduled View Only Hematology/Oncology at [address] [address] Ekta Womack RN 10/06/2024 9:30 AM EST Infusion Hematology Oncology at [address] [phone] 10/07/2024 12:30 PM EST Infusion Hematology Oncology at [address] [address] 10/19/2024 10:00 AM EST Appointment [place] [address] Pia Cooper MD [facility] [place] [address] 10/19/2024 11:00 AM EST Appointment [place] [address] Pia Cooper MD [facility] [place] [address] 2024 9:00 AM EST Office Visit Hematology/Oncology at [address] [phone] Pia Cooper MD [facility] [place] [address] 2024 9:30 AM EST Scheduled View Only Hematology/Oncology at [address] [phone] Ekta Womack, RN 2024 9:30 AM EST Infusion Hematology Oncology at [address] [phone] 11/17/2024 9:00 AM EST Office Visit Hematology/Oncology at [address] [phone] Shayla Vuong, [facility] DR HEMATOLOGY AND ONCOLOGY [place] [phone] 11/17/2024 9:30 AM EST Scheduled View Only Hematology/Oncology at [address] [phone] Ekta Womack, RN 11/17/2024 9:30 AM EST Infusion Hematology Oncology at [address] [phone] documented as of this encounter Visit Diagnoses Not on filedocumented in this encounter Care Teams Presser And Blocker Knitted Goods Relationship Specialty Start Date End Date Jose Manuel Kimble MD PCP - General Family Medicine 09/20/15 09/29/23 documented as of this encounter
--- OUTSIDE RECORDS SUMMARY | 2024-09-21 22:59 | XMS_ITS | Encounter Summary ---
Author Organization [facility] [place] [address] Care Team Providers Care Branch Service Associate Name Role Phone Jose Manuel Kimble MD Primary Care Provider [phone] Reason for Visit * Reason Comments Medication Refill Encounter Details Date Type Department Care Team (Late Contact Info) Description 06/24/2016 [place] [address] Kwabena Garcia MD [facility] [place] [address] Social History Tobacco Use Types Packs/Day Years [...] AM EST Office Visit Hematology/Oncology at [address] [phone] Shayla Vuong [address]N [facility] DR [place] [address] 10/06/2024 9:30 AM EST Scheduled View Only Hematology/Oncology at [address] [phone] Ekta Womack, RN 10/06/2024 9:30 AM EST Infusion Hematology Oncology at [address] [address] 10/07/2024 12:30 PM EST Infusion Hematology Oncology at [address] [address] 10/19/2024 10:00 AM EST Appointment [place] [address] Pia Cooper MD [facility] DR [place] [address] 10/19/2024 11:00 AM EST Appointment [place] [address] Pia Cooper MD [facility] DR [place] [address] 2024 9:00 AM EST Office Visit Hematology/Oncology at [address] [phone] Pia Cooper MD [facility] [place] [address] 2024 9:30 AM EST Scheduled View Only Hematology/Oncology at [address] [address] Ekta Womack RN 2024 9:30 AM EST Infusion Hematology Oncology at [address] [address] 11/17/2024 9:00 AM EST Office Visit Hematology/Oncology at [address] [phone] Shayla Vuong APRN [facility] [place] [address] 11/17/2024 9:30 AM EST Scheduled View Only Hematology/Oncology at [address] [phone] Ekta Womack RN 11/17/2024 9:30 AM EST Infusion Hematology Oncology at [address] [phone] documented as of this encounter Visit Diagnoses Not on filedocumented in this encounter Care Teams Branch Service Associate Relationship Specialty Start Date End Date Jose Manuel Kimble MD PCP - General Family Medicine 09/20/15 09/29/23 documented as of this encounter
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
--- OUTSIDE RECORDS SUMMARY | 2024-09-21 22:59 | XMS_ITS | Encounter Summary ---
Author Organization [place] [address] Care Team Providers Care Sander Portable Machine Name Role Phone Jose Manuel Kimble MD Primary Care Provider [phone] Reason for Visit * Reason Onset Date Comments Medication Refill 06/24/2016 Encounter Details Date Type Department Care Team (Late st Contact Info) Description 06/24/2016 [place] [address] Kwabena Garcia MD [facility] [place] [address] Social History Tobacco Use Types Packs/Day Years [...] daily 30 or 90 Day: 30 Pharmacy: [place], [place] Last Appointment: 04/22 Next Appointment: 10/07 Is Patient out of Medication?: YES documented in this encounter Plan of Treatment Upcoming Encounters Date Type Department Care Team (Late st Contact Info) Description 10/06/2024 9:00 AM EST Office Visit Hematology/Oncology at [address] [phone] Shayla Vuong APRN [facility] [place] [address] 10/06/2024 9:30 AM EST Scheduled View Only Hematology/Oncology at [address] [phone] Ekta Womack RN 10/06/2024 9:30 AM EST Infusion Hematology Oncology at [address] [phone] 10/07/2024 12:30 PM EST Infusion Hematology Oncology at [address] [address] 10/19/2024 10:00 AM EST Appointment [place] [address] Pia Cooper MD [facility] HEMATOLOGY [place] [address] 10/19/2024 11:00 AM EST Appointment [place] [address] Pia Cooper MD [facility] HEMATOLOGY [place] [address] 2024 9:00 AM EST Office Visit Hematology/Oncology at [address] [address] Pia Cooper MD [facility] [place] [address] 2024 9:30 AM EST Scheduled View Only Hematology/Oncology at [address] [phone] Ekta Womack, RN 2024 9:30 AM EST Infusion Hematology Oncology at [address] [phone] 11/17/2024 9:00 AM EST Office Visit Hematology/Oncology at [address] [address] Shayla Vuong APRN [facility] HEMATOLOGY [place] [address] 11/17/2024 9:30 AM EST Scheduled View Only Hematology/Oncology at [address] [phone] Ekta Womack, RN 11/17/2024 9:30 AM EST Infusion Hematology Oncology at [address] [phone] documented as of this encounter Visit Diagnoses Not on filedocumented in this encounter Care Teams Sander Portable Machine Relationship Specialty Start Date End Date Jose Manuel Kimble MD PCP - General Family Medicine 09/20/15 09/29/23 documented as of this encounter
--- OUTSIDE RECORDS SUMMARY | 2024-09-21 22:59 | XMS_ITS | Encounter Summary ---
Author Organization [facility] [place] [address] Care Team Providers Care Stringed Instrument Tuner Name Role Phone Jose Manuel Kimble MD Primary Care Provider [phone] Reason for Visit * Reason Onset Date Comments Other 01/12/2016 Encounter Details Date Type Department Care Team (Late st Contact Info) Description 01/12/2016 Telephone [place] [phone] Kwabena Garcia MD [facility] [place] [address] Other Social History Tobacco Use Types Packs/Day [...] is experiencing while transferring over to the [facility]. States that he is having a lot [...] AM EST Office Visit Hematology/Oncology at [address] [phone] Shayla Vuong APRN [facility] DR HEMATOLOGY [place] [address] 10/06/2024 9:30 AM EST Scheduled View Only Hematology/Oncology at [address] [phone] Ekta Womack RN 10/06/2024 9:30 AM EST Infusion Hematology Oncology at [address] [phone] 10/07/2024 12:30 PM EST Infusion Hematology Oncology at [address] [address] 10/19/2024 10:00 AM EST Appointment [place] [phone] Pia Cooper MD [facility] DR HEMATOLOGY [place] [address] 10/19/2024 11:00 AM EST Appointment [place] [address] Pia Cooper MD [facility] HEMATOLOGY [place] [address] 2024 9:00 AM EST Office Visit Hematology/Oncology at [address] [address] Pia Cooper MD [facility] HEMATOLOGY [place] [address] 2024 9:30 AM EST Scheduled View Only Hematology/Oncology at [address] [phone] Ekta Womack, RN 2024 9:30 AM EST Infusion Hematology Oncology at [address] [phone] 11/17/2024 9:00 AM EST Office Visit Hematology/Oncology at [address] [phone] Shayla Vuong, HYBRID CAR MECHANIC [facility] HEMATOLOGY [place] [address] 11/17/2024 9:30 AM EST Scheduled View Only Hematology/Oncology at [address] [phone] Ekta Womack, RN 11/17/2024 9:30 AM EST Infusion Hematology Oncology at [address] [phone] documented as of this encounter Visit Diagnoses Not on filedocumented in this encounter Care Teams Stringed Instrument Tuner Relationship Specialty Start Date End Date Jose Manuel Kimble MD PCP - General Family Medicine 09/20/15 09/29/23 documented as of this encounter
--- OUTSIDE RECORDS SUMMARY | 2024-09-21 22:59 | XMS_ITS | Encounter Summary ---
Author Organization [facility] [place] [address] Care Team Providers Care Outside Plant Field Engineer Name Role Phone Jose Manuel Kimble MD Primary Care Provider [phone] Reason for Visit * Reason Onset Date Comments Other 12/08/2015 Encounter Details Date Type Department Care Team (Late st Contact Info) Description 12/08/2015 Tele[place] [phone] Kwabena Garcia MD [facility] [place] [address] Other Social History Tobacco Use Types Packs/Day [...] AM EST Office Visit Hematology/Oncology at [address] [phone] Shayla Vuong APRN [facility] DR HEMATOLOGY [place] [address] 10/06/2024 9:30 AM EST Scheduled View Only Hematology/Oncology at [address] [phone] Ekta Womack RN 10/06/2024 9:30 AM EST Infusion Hematology Oncology at [address] [phone] 10/07/2024 12:30 PM EST Infusion Hematology Oncology at [address] [phone] 10/19/2024 10:00 AM EST Appointment [place] [address] Pia Cooper MD [facility] DR HEMATOLOGY [place] [address] 10/19/2024 11:00 AM EST Appointment [place] [address] Pia Cooper MD [facility] DR HEMATOLOGY [place] [address] 2024 9:00 AM EST Office Visit Hematology/Oncology at [address] [phone] Pia Cooper MD [facility] DR HEMATOLOGY [place] [address] 2024 9:30 AM EST Scheduled View Only Hematology/Oncology at [address] [phone] Ekta Womack, HUONG 2024 9:30 AM EST Infusion Hematology Oncology at [address] [phone] 11/17/2024 9:00 AM EST Office Visit Hematology/Oncology at [address] [phone] Shayla Vuong APRN [facility] DR HEMATOLOGY [place] [address] 11/17/2024 9:30 AM EST Scheduled View Only Hematology/Oncology at [address] [phone] Ekta Womack RN 11/17/2024 9:30 AM EST Infusion Hematology Oncology at [address] [phone] documented as of this encounter Visit Diagnoses Not on filedocumented in this encounter Care Teams Outside Plant Field Engineer Relationship Specialty Start Date End Date Jose Manuel Kimble MD PCP - General Family Medicine 09/20/15 09/29/23 documented as of this encounter
--- OUTSIDE RECORDS SUMMARY | 2024-09-21 22:59 | XMS_ITS | Encounter Summary ---
Author Organization [facility] Address One [facility] [place] [address] Care Team Providers Care Gear Roller Name Role Phone Jose Manuel Kimble MD Primary Care Provider [phone] Encounter Details Date Type Department Care Team (Late st Contact Info) Description 06/08/2012 Interpretation Only Radiology 1 [facility] [place] [address] Unknown None Social History Tobacco Use Types [...] AM EST Office Visit Hematology/Oncology at [address] [phone] Shayla Vuong, QUALITY CONTROL ASSOCIATE [facility] DR HEMATOLOGY [place] [address] 10/06/2024 9:30 AM EST Scheduled View Only Hematology/Oncology at [address] [phone] Ekta Womack RN 10/06/2024 9:30 AM EST Infusion Hematology Oncology at [address] [phone] 10/07/2024 12:30 PM EST Infusion Hematology Oncology at [address] [phone] 10/19/2024 10:00 AM EST Appointment [place] [address] Pia Cooper MD [facility] DR HEMATOLOGY [place] [address] 10/19/2024 11:00 AM EST Appointment [place] [address] Pia Cooper MD [facility] DR HEMATOLOGY [place] [address] 2024 9:00 AM EST Office Visit Hematology/Oncology at [address] [address] Pia Cooper MD [facility] DR HEMATOLOGY [place] [address] 2024 9:30 AM EST Scheduled View Only Hematology/Oncology at [address] [address] Ekta Womack RN 2024 9:30 AM EST Infusion Hematology Oncology at [address] [address] 11/17/2024 9:00 AM EST Office Visit Hematology/Oncology at [address] [phone] Shayla Vuong APRN [facility] DR HEMATOLOGY [place] [address] 11/17/2024 9:30 AM EST Scheduled View Only Hematology/Oncology at [address] [phone] Ekta Womack RN 11/17/2024 9:30 AM EST Infusion Hematology Oncology at [address] [phone] documented as of this encounter Procedures Procedure Name Priority Date/Time Associated Diagnosis Comments XR FLUORO NO RAD <1HR - RADIOLOGY USE Routine 06/08/2012 6:02 AM EDT documented in this encounter Results * XR Fluoro <1Hr - Radiology Use (06/08/2012 6:02 AM EDT) Anatomical Region Laterality Modality N/A Radiographic Rama ging 06/08/2012 6:02 AM EDT Narrative 06/08/2012 6:02 AM EDT APD Historical Result Principal [employer]: ??PRIMITIVO ??RAYSHAWN C-ARM: FINDINGS: Fluoroscopy was provided [...] dose is 3.26 mGy. Primitivo Guillen MD /[facility] [id number] CC: Procedure Note Unknown - 05/31/2019 APD Historical Result [employer]: PRIMITIVO GUILLEN C-ARM: FINDINGS: Fluoroscopy was provided [...] is 3.26 mGy. Primitivo Guillen MD YUE/laura [id number] CC: Unknown IMG FLUORO ORDERABLE S documented in this encounter Visit Diagnoses Not on filedocumented in this encounter Care Teams Gear Roller Relationship Specialty Start Date End Date Jose Manuel Kimble MD PCP - General Family Medicine 09/20/15 09/29/23 documented as of this encounter
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
--- OUTSIDE RECORDS SUMMARY | 2024-09-21 22:59 | XMS_ITS | Encounter Summary ---
Author Organization [facility] [place] [address] Care Team Providers Care Nascar Driver Name Role Phone Jose Manuel Kimble MD Primary Care Provider [phone] Reason for Visit * Reason Onset Date Comments Other 06/06/2016 Encounter Details Date Type Department Care Team (Late st Contact Info) Description 06/06/2016 [place] [phone] Kwabena Garcia MD [facility] [place] [address] Other Social History Tobacco Use Types Packs/Day [...] AM EST Office Visit Hematology/Oncology at [address] [phone] Shayla Vuong, CLEMENTE [facility] DR HEMATOLOGY [place] [address] 10/06/2024 9:30 AM EST Scheduled View Only Hematology/Oncology at [address] [phone] Ekta Womack RN 10/06/2024 9:30 AM EST Infusion Hematology Oncology at [address] [phone] 10/07/2024 12:30 PM EST Infusion Hematology Oncology at [address] [address] 10/19/2024 10:00 AM EST Appointment [place] [address] Pia Cooper MD [facility] DR HEMATOLOGY [place] [address] 10/19/2024 11:00 AM EST Appointment [place] [address] Pia Cooper MD [facility] DR HEMATOLOGY [place] [address] 2024 9:00 AM EST Office Visit Hematology/Oncology at [address] [phone] Pia Cooper MD [facility] DR HEMATOLOGY [place] [address] 2024 9:30 AM EST Scheduled View Only Hematology/Oncology at [address] [phone] Ekta Womack RN 2024 9:30 AM EST Infusion Hematology Oncology at [address] [phone] 11/17/2024 9:00 AM EST Office Visit Hematology/Oncology at [address] [phone] Shayla Vuong APRN [facility] DR HEMATOLOGY [place] [address] 11/17/2024 9:30 AM EST Scheduled View Only Hematology/Oncology at [address] [phone] Ekta Womack RN 11/17/2024 9:30 AM EST Infusion Hematology Oncology at [address] [phone] documented as of this encounter Visit Diagnoses Diagnosis Mild cognitive impairment Mild cognitive impairment, so stated documented in this encounter Care Teams Nascar Driver Relationship Specialty Start Date End Date Jose Manuel Kimble MD PCP - General Family Medicine 09/20/15 09/29/23 documented as of this encounter
--- OUTSIDE RECORDS SUMMARY | 2024-09-21 22:59 | XMS_ITS | Encounter Summary ---
Author Organization [facility] [place] [address] Care Team Providers Care Furniture And Bedding Inspector Name Role Phone Jose Manuel Kimble MD Primary Care Provider [phone] Reason for Visit * Reason Onset Date Comments Medication Refill 07/14/2017 Encounter Details Date Type Department Care Team (Late Contact Info) Description 07/14/2017 Ref[place] [address] Kwabena Garcia MD [facility] [place] [address] Social History Tobacco Use Types Packs/Day Years [...] 9:00 AM EST Office Visit Hematology/Oncology at [address] [address] Shayla Vuong APRN [facility] DR HEMATOLOGY [place] [address] 10/06/2024 9:30 AM EST Scheduled View Only Hematology/Oncology at [address] [phone] Ekta Womack, RN 10/06/2024 9:30 AM EST Infusion Hematology Oncology at [address] [phone] 10/07/2024 12:30 PM EST Infusion Hematology Oncology at [address] [phone] 10/19/2024 10:00 AM EST Appointment [place] [address] Pia Cooper MD [facility] DR HEMATOLOGY [place] [address] 10/19/2024 11:00 AM EST Appointment [place] [address] Pia Cooper MD [facility] DR HEMATOLOGY [place] [address] 2024 9:00 AM EST Office Visit Hematology/Oncology at [address] [phone] Pia Cooper MD [facility] HEMATOLOGY [place] [address] 2024 9:30 AM EST Scheduled View Only Hematology/Oncology at [address] [phone] Ekta Womack, RN 2024 9:30 AM EST Infusion Hematology Oncology at [address] [phone] 11/17/2024 9:00 AM EST Office Visit Hematology/Oncology at [address] [phone] Shayla Vuong APRN [facility] DR HEMATOLOGY [place] [address] 11/17/2024 9:30 AM EST Scheduled View Only Hematology/Oncology at [address] [phone] Ekta Womack RN 11/17/2024 9:30 AM EST Infusion Hematology Oncology at [address] [phone] documented as of this encounter Visit Diagnoses Not on filedocumented in this encounter Care Teams Furniture And Bedding Inspector Relationship Specialty Start Date End Date Jose Manuel Kimble MD PCP - General Family Medicine 09/20/15 09/29/23 documented as of this encounter
--- OUTSIDE RECORDS SUMMARY | 2024-09-21 22:59 | XMS_ITS | Encounter Summary ---
[place] [address] Care Team Providers Care Engine Specialist Name Role Phone Jose Manuel Kimble MD Primary Care Provider [phone] Reason for Visit * Reason Onset Date Comments Prior Authorization 12/05/2015 VIMPAT #60/3 0 12/15/15-03/18/16 Encounter Details Date Type Department Care Team (Late st Contact Info) Description 12/05/2015 [place] [address] Kwabena Garcia MD [facility] [place] [address] Prior Authorization (VIMPAT #60/30 12/15/15-03/18/16) Social History [...] EST VIMPAT 200mg #60/30 12/15/15-03/18/16 Request #: [id number] * Telephone Encounter - Cheryl Sutherland - [...] 9:00 AM EST Office Visit Hematology/Oncology at [address] [phone] Shayla Vuong APRN [facility] [place] [address] 10/06/2024 9:30 AM EST Scheduled View Only Hematology/Oncology at [address] [phone] Ekta Womack RN 10/06/2024 9:30 AM EST Infusion Hematology Oncology at [address] [phone] 10/07/2024 12:30 PM EST Infusion Hematology Oncology at [address] [address] 10/19/2024 10:00 AM EST Appointment [place] [address] Pia Cooper MD [facility] [place] [address] 10/19/2024 11:00 AM EST Appointment [place] [address] Pia Cooper MD [facility] [place] [address] 2024 9:00 AM EST Office Visit Hematology/Oncology at [address] [phone] Pia Cooper MD [facility] [place] [address] 2024 9:30 AM EST Scheduled View Only Hematology/Oncology at [address] [phone] Ekta Womack, RN 2024 9:30 AM EST Infusion Hematology Oncology at [address] [phone] 11/17/2024 9:00 AM EST Office Visit Hematology/Oncology at [address] [phone] Shayla Vuong APRN [facility] [place] [address] 11/17/2024 9:30 AM EST Scheduled View Only Hematology/Oncology at [address] [phone] Ekta Womack, RN 11/17/2024 9:30 AM EST Infusion Hematology Oncology at [address] [phone] documented as of this encounter Visit Diagnoses Not on filedocumented in this encounter Care Teams Engine Specialist Relationship Specialty Start Date End Date Jose Manuel Kimble MD PCP - General Family Medicine 09/20/15 09/29/23 documented as of this encounter
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
--- OUTSIDE RECORDS SUMMARY | 2024-09-21 22:59 | XMS_ITS | Encounter Summary ---
[place] [address] Care Team Providers Care Retail Cosmetics Sales Counter Manager Name Role Phone Jose Manuel Kimble MD Primary Care Provider [phone] Encounter Details Date Type Department Care Team (Late st Contact Info) Description 11/02/2015 Telephone [place] [phone] Alverto Grove MD [facility] [place] [address] Social History Tobacco Use Types Packs/Day Years [...] emergently. They live [place] away from [facility]. I would like to give him an extra dose of an AED. Patient has already left for work this morning without his meds. She asks that I speak to Dr. Garcia and I will have either him or myself call her back later this morning. 's #: [phone] documented in this encounter Plan of Treatment Upcoming Encounters Date Type Department Care Team (Late st Contact Info) Description 10/06/2024 9:00 AM EST Office Visit Hematology/Oncology at [address] [phone] Shayla Vuong APRN [facility] DR HEMATOLOGY AND ONCOLOGY [facility] [place] [address] 10/06/2024 9:30 AM EST Scheduled View Only Hematology/Oncology at [address] [phone] Ekta Womack RN 10/06/2024 9:30 AM EST Infusion Hematology Oncology at [address] [phone] 10/07/2024 12:30 PM EST Infusion Hematology Oncology at [address] [phone] 10/19/2024 10:00 AM EST Appointment [place] [address] Pia Cooper MD [facility] DR HEMATOLOGY [place] [address] 10/19/2024 11:00 AM EST Appointment [place] [address] Pia Cooper MD [facility] DR HEMATOLOGY [place] [address] 2024 9:00 AM EST Office Visit Hematology/Oncology at [address] [phone] Pia Cooper MD [facility] DR HEMATOLOGY [place] [address] 2024 9:30 AM EST Scheduled View Only Hematology/Oncology at [address] [phone] Ekta Womack, RN 2024 9:30 AM EST Infusion Hematology Oncology at [address] [address] 11/17/2024 9:00 AM EST Office Visit Hematology/Oncology at [address] [phone] Shayla Vuong APRN [facility] DR HEMATOLOGY [place] [address] 11/17/2024 9:30 AM EST Scheduled View Only Hematology/Oncology at [address] [phone] Ekta Womack RN 11/17/2024 9:30 AM EST Infusion Hematology Oncology at [address] [phone] documented as of this encounter Visit Diagnoses Not on filedocumented in this encounter Care Teams Retail Cosmetics Sales Counter Manager Relationship Specialty Start Date End Date Jose Manuel Kimble MD PCP - General Family Medicine 09/20/15 09/29/23 documented as of this encounter
--- OUTSIDE RECORDS SUMMARY | 2024-09-21 22:59 | XMS_ITS | Encounter Summary ---
Author Organization [facility] [place] [address] Care Team Providers Care Gas Engine Repairer Name Role Phone Jose Manuel Kimble MD Primary Care Provider [phone] Encounter Details Date Type Department Care Team (Late Contact Info) Description 09/25/2015 Orders [place] [address] Kwabena Garcia MD [facility] [place] [place] [address] Social History Tobacco Use Types Packs/Day Years [...] AM EST Office Visit Hematology/Oncology at [address] [phone] Shayla Vuong APRN [facility] [place] [address] 10/06/2024 9:30 AM EST Scheduled View Only Hematology/Oncology at [address] [phone] Ekta Womack, RN 10/06/2024 9:30 AM EST Infusion Hematology Oncology at [address] [phone] 10/07/2024 12:30 PM EST Infusion Hematology Oncology at [address] [phone] 10/19/2024 10:00 AM EST Appointment [place] [address] Pia Cooper MD [facility] [place] [address] 10/19/2024 11:00 AM EST Appointment [place] [address] Pia Cooper MD [facility] [place] [address] 2024 9:00 AM EST Office Visit Hematology/Oncology at [address] [phone] Pia Cooper MD [facility] [place] [address] 2024 9:30 AM EST Scheduled View Only Hematology/Oncology at [address] [phone] Ekta Womack RN 2024 9:30 AM EST Infusion Hematology Oncology at [address] [address] 11/17/2024 9:00 AM EST Office Visit Hematology/Oncology at [address] [address] Shayla Vuong, CLEMENTE [facility] [place] [address] 11/17/2024 9:30 AM EST Scheduled View Only Hematology/Oncology at [address] [phone] Ekta Womack RN 11/17/2024 9:30 AM EST Infusion Hematology Oncology at [address] [phone] documented as of this encounter Visit Diagnoses Not on filedocumented in this encounter Care Teams Gas Engine Repairer Relationship Specialty Start Date End Date Jose Manuel Kimble MD PCP - General Family Medicine 09/20/15 09/29/23 documented as of this encounter
--- OUTSIDE RECORDS SUMMARY | 2024-09-21 22:59 | XMS_ITS | Encounter Summary ---
[place] [address] Care Team Providers Care Cab Station Attendant Name Role Phone Jose Manuel Kimble MD Primary Care Provider [phone] Encounter Details Date Type Department Care Team (Late st Contact Info) Description 01/16/2016 [place] [phone] Kwabena Garcia MD [facility] [place] [address] Social History Tobacco Use Types Packs/Day Years [...] AM EST Office Visit Hematology/Oncology at [address] [phone] Shayla Vuong APRN [facility] DR [place] [address] 10/06/2024 9:30 AM EST Scheduled View Only Hematology/Oncology at [address] [phone] Ekta Womack RN 10/06/2024 9:30 AM EST Infusion Hematology Oncology at [address] [phone] 10/07/2024 12:30 PM EST Infusion Hematology Oncology at [address] [address] 10/19/2024 10:00 AM EST Appointment [place] [address] Pia Cooper MD [facility] [place] [address] 10/19/2024 11:00 AM EST Appointment [place] [address] Pia Cooper MD [facility] [place] [address] 2024 9:00 AM EST Office Visit Hematology/Oncology at [address] [phone] Pia Cooper MD [facility] DR [place] [address] 2024 9:30 AM EST Scheduled View Only Hematology/Oncology at [address] [phone] Ekta Womack, RN 2024 9:30 AM EST Infusion Hematology Oncology at [address] [phone] 11/17/2024 9:00 AM EST Office Visit Hematology/Oncology at [address] [phone] Shayla Vuong APRN [facility] DR [place] [address] 11/17/2024 9:30 AM EST Scheduled View Only Hematology/Oncology at [address] [phone] Ekta Womack, RN 11/17/2024 9:30 AM EST Infusion Hematology Oncology at [address] [phone] documented as of this encounter Visit Diagnoses Not on filedocumented in this encounter Care Teams Cab Station Attendant Relationship Specialty Start Date End Date Jose Manuel Kimble MD PCP - General Family Medicine 09/20/15 09/29/23 documented as of this encounter
--- OUTSIDE RECORDS SUMMARY | 2024-09-21 22:59 | XMS_ITS | Encounter Summary ---
[place] [address] Care Team Providers Care Bag Mender Name Role Phone Jose Manuel Kimble MD Primary Care Provider [phone] Reason for Visit * Reason Onset Date Comments Medication Refill 01/14/2017 Encounter Details Date Type Department Care Team ([facility] Contact Info) Description 01/14/2017 [place] [phone] Margarita Munoz CMA Medication Refill Social History [...] to requested pharmacy, [facility] [facility] [address] [place] documented in this encounter Plan of Treatment Upcoming Encounters Date Type Department Care Team ([facility] Contact Info) Description 10/06/2024 9:00 AM EST Office Visit Hematology/Oncology at [address] [phone] Shayla Vuong, NAPHTHALENE OPERATOR HELPER [facility] DR [place] [address] 10/06/2024 9:30 AM EST Scheduled View Only Hematology/Oncology at [address] [phone] Ekta Womack RN 10/06/2024 9:30 AM EST Infusion Hematology Oncology at [address] [phone] 10/07/2024 12:30 PM EST Infusion Hematology Oncology at [address] [phone] 10/19/2024 10:00 AM EST Appointment [place] [address] Pia Cooper MD [facility] DR [place] [address] 10/19/2024 11:00 AM EST Appointment [place] [address] Pia Cooper MD [facility] DR [place] [address] 2024 9:00 AM EST Office Visit Hematology/Oncology at [address] [phone] Pia Cooper MD [facility] [place] [address] 2024 9:30 AM EST Scheduled View Only Hematology/Oncology at [address] [phone] Ekta Womack, HUONG 2024 9:30 AM EST Infusion Hematology Oncology at [address] [address] 11/17/2024 9:00 AM EST Office Visit Hematology/Oncology at [address] [phone] Shayla Vuong APRN [facility] [place] [address] 11/17/2024 9:30 AM EST Scheduled View Only Hematology/Oncology at [address] [phone] Ekta Womack RN 11/17/2024 9:30 AM EST Infusion Hematology Oncology at [address] [phone] documented as of this encounter Visit Diagnoses Not on filedocumented in this encounter Care Teams Bag Mender Relationship Specialty Start Date End Date Jose Manuel Kimble MD PCP - General Family Medicine 09/20/15 09/29/23 documented as of this encounter
--- OUTSIDE RECORDS SUMMARY | 2024-09-21 22:59 | XMS_ITS | Encounter Summary ---
Author Organization [facility] [place] [address] Care Team Providers Care Head Of Science Name Role Phone Jose Manuel Kimble MD Primary Care Provider [phone] Reason for Visit * Reason Onset Date Comments Medication Refill 01/13/2017 Encounter Details Date Type Department Care Team (Late Contact Info) Description 01/13/2017 [place] [address] Kwabena Garcia MD [facility] [place] [address] Social History Tobacco Use Types Packs/Day Years [...] AM EST Office Visit Hematology/Oncology at [address] [phone] Shayla Vuong APRN [facility] DR [place] [address] 10/06/2024 9:30 AM EST Scheduled View Only Hematology/Oncology at [address] [phone] Ekta Womack RN 10/06/2024 9:30 AM EST Infusion Hematology Oncology at [address] [phone] 10/07/2024 12:30 PM EST Infusion Hematology Oncology at [address] [phone] 10/19/2024 10:00 AM EST Appointment [place] [address] Pia Copoer MD [facility] DR [place] [address] 10/19/2024 11:00 AM EST Appointment [place] [address] Pia Cooper MD [facility] [place] [address] 2024 9:00 AM EST Office Visit Hematology/Oncology at [address] [phone] Pia Cooper MD [facility] [place] [address] 2024 9:30 AM EST Scheduled View Only Hematology/Oncology at [address] [phone] Ekta Womack RN 2024 9:30 AM EST Infusion Hematology Oncology at [address] [phone] 11/17/2024 9:00 AM EST Office Visit Hematology/Oncology at [address] [address] Shayla Vuong, CLEMENTE [facility] [place] [address] 11/17/2024 9:30 AM EST Scheduled View Only Hematology/Oncology at [address] [phone] Ekta Womack RN 11/17/2024 9:30 AM EST Infusion Hematology Oncology at [address] [phone] documented as of this encounter Visit Diagnoses Not on filedocumented in this encounter Care Teams Head Of Science Relationship Specialty Start Date End Date Jose Manuel Kimble MD PCP - General Family Medicine 09/20/15 09/29/23 documented as of this encounter
--- OUTSIDE RECORDS SUMMARY | 2024-09-21 22:59 | XMS_ITS | Encounter Summary ---
[place] [address] Care Team Providers Care Firer Portable Boiler Name Role Phone Janee Salinas MD Primary Care Provider [phone] Reason for Visit * Auth/Cert - Closed Specialty Diagnoses / Procedures Referred By Contac t Referred To Contact Diagnoses Refractory Seizures Procedures PRG COMBINED EEG AND VIDEO REORD AND INTERP 24HRS FOR CEREBRAL SEIZURES Referral ID Status Reason Start Date Expiration Date Visits Re quested Visits Authorized [id number] Closed 1 1 Encounter Details Date Type Department Care Team (Late st Contact Info) Description 11/20/2015 2:24 PM EST - 11/24/2015 10:36 AM [facility] Hospital Encounter [address] [place] [address] Guilherme Reynolds MD [facility] [place] [address] Kwabena Garcia MD [facility] [place] [address] Seizures Discharge Disposition: Home Social History Tobacco [...] Brett Campos Patient Age: 40 y.o. Language: [place] Citizen Race: White Ethnicity: Not nor Admit date: [...] author(s) of this discharge summary through the [facility] Top[facility] . Discharge Diagnoses (Hospital Problems) and Secondary [...] PMHx epilepsy, s/p L Temporal Lobectomy 1998 @[facility], congenital lazy eye admitted to the video EEG monitoring unit for further evaluation and localization of seizures. 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 He had left temporal lobe surgery in 1998 at [facility] and responded well with seizure cessation. 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 Coordination: Normal afkxlz-cawt-xdmdhp, rapid alternating movements, finger taps. Romberg not [...] Calculated (Bezet) 439 ms Final Calculated P Circle 49 degrees Final Calculated R Circle 26 degrees Final Calculated T Circle 47 degrees Final INTERPRETATION Final Normal sinus [...] have had a positive experience at the [facility] Epilepsy Monitoring Unit. Here [...] ??? Check with your provider before taking czxy-gwp-knmdvrp medications or herbal therapies. These can interfere with how well your seizure medications work. FOLLOWUP APPOINTMENT: You will have an outpatient followup appointment in the neurology clinic at [facility]. If not already listed in this document, we will contact you to schedule this appointment. -- If 1 week passes by after you are discharged and you still do not have an appointment, please call [phone]. Future Appointments Provider Department Dept Phone 12/04/2015 11:30 AM Kwabena Garcia MD Neurology [phone] Specific instructions related to your condition: ??? [...] as chainsaws. ??? Driving restrictions: *According to [place] driving laws, after you have experienced an episodeof loss of consciousness due to a seizure you may not be able drive until cleared by your physicianwith final approval depending upon the [place] Commissioner. We strongly recommend that you avoid driving cars, recreational vehicles or heavy machinery and seek alternate transportation. [Statute: 23 [place]. STAT. [place]. ? 636-37] For more information, please visit http://www.epilepsyfoundation.org/resources/Atwsxox-Sskv-jx-State.cfm ?? Diet: As before. For questions regarding this document or issues relating to this hospitalization on the Neurology Service, please contact your inpatient physician through the [facility] Top[facility] Survey[facility] . Issues after hours and on weekends will be handled by the Neurology staff on-call. General Instructions None Future Appointments Provider Department Dept Phone 12/04/2015 11:30 AM Kwabena Garcia MD Neurology [phone] Future Appointments Date Time Provider Department Center 12/04/2015 11:30 AM Kwabena Garcia MD [facility] Neuro [facility] Primary Care Provider: JANEE SALINAS MD [address] / [place] [address] Discharge References/Attachments None documented in this encounter Discharge Instructions * Patient Instructions* Robyn Kaye MD - 11/24/2015 10:03 AM EST After Visit Summary: We hope that you have had a positive experience at the [facility] Epilepsy Monitoring Unit. Here [...] ??? Check with your provider before taking zuoz-ogx-iwyjbue medications or herbal therapies. These can interfere with how well your seizure medications work. FOLLOWUP APPOINTMENT: You will have an outpatient followup appointment in the neurology clinic at [facility]. If not already listed in this document, we will contact you to schedule this appointment. -- If 1 week passes by after you are discharged and you still do not have an appointment, please call [phone]. Future Appointments Provider Department Dept Phone 12/04/2015 11:30 AM Kwabena Garcia MD Neurology [phone] Specific instructions related to your condition: ??? [...] as chainsaws. ??? Driving restrictions: *According to [place] driving laws, after you have experienced an episodeof loss of consciousness due to a seizure you may not be able drive until cleared by your physicianwith final approval depending upon the [place] Commissioner. We strongly recommend that you avoid driving cars, recreational vehicles or heavy machinery and seek alternate transportation. [Statute: 23 [place] STAT. [place]. ? 636-37] For more information, please visit http://www.epilepsyfoundation.org/resources/Foiqtvt-Rsyl-sw-State.cfm ?? Diet: As before. For questions regarding this document or issues relating to this hospitalization on the Neurology Service, please contact your inpatient physician through the [facility] Topographical Surveyor . Issues after hours and on weekends [...] epilepsy, s/p L Temporal Lobectomy 1998 @ [facility], congenital lazy eye who is admitted to [...] Neurology resident PGY 2 General neurology pager [phone] 11/24/2015 Associated attestation - Howard Cheek MD - 11/25/2015 5:18 AM EST Neurology Attending Note Howard Cheek MD PhD (pager [phone]) I have seen and examined Brett Campos on 11/[address] Kaye, whose note contains our concurrent history, exam, data/imaging review and jointly formulated assessment and plan. * Adelaide Sweeney RN - 11/23/2015 11:11 AM EST Office of Care Management (OCM)/Sow Manager (CM) Discharge planning CM Adelaide Sweeney RN pager [phone] Per discussion in discharge planning rounds plan for d/c tomorrow; new rt frontal lobe seizures; med adjustments; patient asking to d/c today; no d/c needs anticipated. * Brittaney White RN - 11/23/2015 7:03 AM EST At 6am this typewriter tester was in room given patient PRN medication for nausea and headache when patient started pushing medications away, SpO2 dropped to 87-89% on RA, unsustained but several times, HR 95-105. Patient became unable to speak or state name. This typewriter tester pushed sz button. Patient pushed this typewriter tester away when trying to administer O2 nonrebreather and this typewriter tester held in front of patient. Patient rolling [...] epilepsy, s/p L Temporal Lobectomy 1998 @ [facility], congenital lazy eye who is admitted to [...] Neurology resident PGY 2 General neurology pager [phone] 11/23/2015 Associated attestation - Guilherme Reynolds MD [...] ssion, as documented. Guilherme Reynolds M.D., Ph.D. Die Inspector of Neurology * Ellie Connelly RN - [...] He was cleaned up by RN and CITY PLANT SUPERVISOR. No further seizure activity noted. * Tamie [...] and was not able to respond to paper sample clerk's questions/commands for ~ 10 mins. Made attempts [...] epilepsy, s/p L Temporal Lobectomy 1998 @ [facility], congenital lazy eye who is admitted to [...] Neurology resident PGY 2 General neurology pager [phone] 11/22/2015 Associated attestation - Guilherme Reynolds MD [...] ssion, as documented. Guilherme Reynolds M.D., Ph.D. Die Inspector of Neurology * Tamie Luz RN - [...] his surrounding and spoke clearly, freely, with paper sample clerk throughout. He reported his numbness/tingling lasted ~ 60 seconds which he stated to RN wastypical of his events. MDs notified of this episode and his AED medications have been discontinued. Y * Luz Maria Lechuga RN - 11/21/2015 11:12 AM EST Office of Care Management (OCM) / Sow Manager(CM)/ Initial Assessment Discussed patient with Provider Team and in multidisciplinary discharge-planning rounds. Reviewed record and interviewed patient. Introduced/reviewed CM role and services accepted. REASON for HOSPITALIZATION:Seizure PMH No past medical history on file. PREVIOUS FUNCTIONAL STATUS:independent CURRENT FUNCTIONAL STATUS:independent SOCIAL / FAMILY SUPPORTS: spouse ADVANCE DIRECTIVES: Not on file, defers social work involvement to create HEALTH /PRESCRIPTION COVERAGE[place] CURRENT HOME/COMMUNITY SERVICES/EQUIPMENT: none WILDLIFE PROTECTOR REFERRAL: not needed at this time PRIMARY CARE PHYSICIAN: JANEE SALINAS MD BOX [facility] [employer] [id number] POTENTIAL DISCHARGE NEEDS: none ANTICIPATED BARRIERS TO [...] Neurology resident PGY 2 General neurology pager [phone] Associated attestation - Guilherme Reynolds MD - [...] ssion, as documented. Guilherme Reynolds M.D., Ph.D. Die Inspector of Neurology * Veronica Garnica - 11/20/2015 2:38 PM EST Pt to floor 1430. MD Gibbs to bedside. IV team notified. documented in this encounter H&P Notes * Мария Gibbs PA - 11/20/2015 3:05 PM EST [facility] Epilepsy Center NEUROLOGY HISTORY AND PHYSICAL Referring Provider: Dr. Janee Salinas Presenting Diagnosis/Chief Complaint: Seizures History of Present Illness/Description of Symptoms: Brett Campos is a 40 y.o. right-handed male with PMHx epilepsy, s/p L Temporal Lobectomy 1998 @[facility], congenital lazy eye who is admitted to the video EEG monitoring unit for further evaluation and localization of seizures. 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 He had left temporal lobe surgery in 1998 at [facility] and responded well with seizure cessation. 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 - Once . - 3 kids from previous marriage; all adults. 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 REVIEW OF SYSTEMS: General: no fevers or chills, denies weight change, denies fatigue Eyes: no vision changes, diplopia. +Blurred vision since this summer - was messing with a welder operator and developed blurred vision. Bought OTC Rx [...] temp, vibration, and proprioception throughout. Coordination: Normal jzkscx-tmxc-tvsnkn, rapid alternating movements, finger taps. Romberg not [...] STATUS: Full Please contact general neurology, pager #[phone], with any questions. TIMMY MccallC Pager: [phone] Dept. Of Neurology [facility] [phone] documented in this encounter Procedure Notes * Guilherme Reynolds MD - 11/24/2015 12:56 PM EST [facility] Department of Neurology Inpatient Video EEG Report [...] in the Epilepsy Monitoring Unit by the [facility] Clinical Neurophysiology Laboratory. The 10/20 international system [...] which secondarily generalized. Guilherme Reynolds M.D., Ph.D. Die Inspector of Neurology [facility]psy [facility] * Dada Polo Jr. - 11/23/2015 7:29 AM EST [facility] Department of Neurology Inpatient Video EEG Report [...] mg 4 mg Intravenous Q8H PRN Robyn Kaye MD 4 mg at 11/23/15 022 ??? [...] in the Epilepsy Monitoring Unit by the [facility] Clinical Neurophysiology Laboratory. The 10/20 international system [...] MD, PhD (PGY5) Epilepsy Fellow Personal Pager #[phone] Associated attestation - Guilherme Reynolds MD - 11/28/2015 12:55 PM EST EPILEPSY ATTENDING ADDENDUM - I reviewed the EEG with the TRAFFIC I MANAGER/Epilepsy fellow, and I agree with the interpretation as documented. Guilherme Reynolds MD, PhD Die Inspector of Neurology [facility] [place] Clinical Neurophysiology Laboratory * Dada Polo Jr. - 11/22/2015 7:51 AM EST [facility] Department of Neurology Inpatient Video EEG Report [...] in the Epilepsy Monitoring Unit by the [facility] Clinical Neurophysiology Laboratory. The 10/20 international system [...] MD, PhD (PGY5) Epilepsy Fellow Personal Pager #[phone] Associated attestation - Guilherme Reynolds MD - 11/28/2015 12:49 PM EST EPILEPSY ATTENDING ADDENDUM - I reviewed the EEG with the TRAFFIC I MANAGER/Epilepsy fellow, and I agree with the interpretation as documented. Guilherme Reynolds MD, PhD Die Inspector of Neurology [facility] Clinical Neurophysiology Laboratory * Dada Polo Jr. - 11/21/2015 8:15 AM EST [facility] Department of Neurology Inpatient Video EEG Report [...] in the Epilepsy Monitoring Unit by the [facility] Clinical Neurophysiology Laboratory. The 10/20 international system [...] MD, PhD (PGY5) Epilepsy Fellow Personal Pager #[phone] Associated attestation - Guilherme Reynolds MD - 11/28/2015 12:45 PM EST EPILEPSY ATTENDING ADDENDUM - I reviewed the EEG with the TRAFFIC I MANAGER/Epilepsy fellow, and I agree with the interpretation as documented. Guilherme Reynolds MD, PhD Die Inspector of Neurology [facility] [place] Clinical Neurophysiology Laboratory documented in this encounter [...] this shift. Patient was able to tolerate [place] with no nausea. * Plan of Care [...] 0000: patient woke up, needed to urinate. [place] dizzy upon sitting, was able to go [...] outcome * Plan of Care - Betty Payton RN - 11/21/2015 4:42 AM EST Problem: [...] AM EST Office Visit Hematology/Oncology at [address] [phone] Shayla Vuong APRN [facility] HEMATOLOGY [place] [address] 10/06/2024 9:30 AM EST Scheduled View Only Hematology/Oncology at [address] [phone] Ekta Womack RN 10/06/2024 9:30 AM EST Infusion Hematology Oncology at [address] [phone] 10/07/2024 12:30 PM EST Infusion Hematology Oncology at [address] [phone] 10/19/2024 10:00 AM EST Appointment [place] [address] Pia Cooper MD [facility] HEMATOLOGY [place] [address] 10/19/2024 11:00 AM EST Appointment [place] [address] Pia Cooper MD [facility] HEMATOLOGY [place] [address] 2024 9:00 AM EST Office Visit Hematology/Oncology at [address] [phone] Pia Cooper MD [facility] HEMATOLOGY [place] [address] 2024 9:30 AM EST Scheduled View Only Hematology/Oncology at [address] [phone] Ekta Womack, RN 2024 9:30 AM EST Infusion Hematology Oncology at [address] [phone] 11/17/2024 9:00 AM EST Office Visit Hematology/Oncology at [address] [phone] Shayla Vuong APRN [facility] DR HEMATOLOGY [place] [address] 11/17/2024 9:30 AM EST Scheduled View Only Hematology/Oncology at [address] [phone] Ekta Womack, HUONG 11/17/2024 9:30 AM EST Infusion Hematology Oncology at [address] [phone] Scheduled Orders Name Type Priority Associated Diagnoses [...] (Bezet) 439 ms MUSE SYSTEM Calculated P Circle 49 degrees MUSE SYSTEM Calculated R Circle 26 degrees MUSE SYSTEM Calculated T Circle 47 degrees MUSE SYSTEM INTERPRETATION Normal sinus rhythm Normal ECG No previous ECGs available Confirmed by Chapo Schmidt MD (49) on 11/20/2015 4:50:25 PM MUSE SYSTEM [...] MD HEMATOLOGY ORDERABLE S Performing Organization Address [facility] Co de Phone Number CEREMILY GRESHAMIUM * Lamotrigine Lvl (11/20/2015 3:34 PM EST) Lamotrigine Lvl (MARCH) 4.0 2.5 - 15.0 mcg/mL CERNER MILLENNIUM Comment: Test Performed by: [place] [address] Director Video: Tamie Brown, Ph.D. Blood specimen (specimen) 11/20/2015 3:34 PM EST 11/20/2015 5:19 PM EST Narrative Resulting Agency Comment Spec In Lab Guilherme Reynolds MD LAB SEND OUT ORDERAB LES Performing Organization Address [facility] Co de Phone Number CEREMILY MONTANOENNIUM * (ABNORMAL) Carbamazepine level, total (11/20/2015 3:34 PM EST) Carbamazepine 7.6(L) 8.0 - 12.0 mg/L CERNER MILLENNIUM Comment: Therapeutic range: ??8-12 mg/L Toxic: ??> 12 mg/L Blood specimen (specimen) 11/20/2015 3:34 PM EST 11/20/2015 3:49 PM EST Narrative Resulting Agency Comment Spec In Lab Guilherme Reynolds MD CHEMISTRY ORDERABLES Performing Organization Address [facility] Co de Phone Number CERNER MILLENNIUM * Hepatic Function Panel (11/20/2015 3:34 PM [...] Reynolds MD CHEMISTRY ORDERABLES Performing Organization Address [facility] de Phone Number EVERTON GRESHAMIUM * Creatinine (11/20/2015 3:34 PM EST) Creatinine 1.03 0.80 - 1.50 mg/dL CERNER MILLENNIUM Comment: Please note that the pediatric reference intervals supplied above were not validated at [facility]. Results from pediatric patients should be interpreted [...] the following links into your internet browser. [email or web address] Blood specimen (specimen) 11/20/2015 3:34 PM EST 11/20/2015 3:49 PM EST Narrative Resulting Agency Comment Spec In Lab Guilherme Reynolds MD CHEMISTRY ORDERABLES Performing Organization Address [facility] Co de Phone Number EVERTON GRESHAMIUM * BUN (11/20/2015 3:34 PM EST) Blood Urea Nitrogen 13 10 - 20 mg/dL CERNER MILLENNIUM Blood specimen (specimen) 11/20/2015 3:34 PM EST 11/20/2015 3:49 PM EST Narrative Resulting Agency Comment Spec In Lab Guilherme Reynolds MD CHEMISTRY ORDERABLES Performing Organization Address [facility] Co de Phone Number EVERTON SANTOS * Electrolytes panel (11/20/2015 3:34 PM [...] Reynolds MD CHEMISTRY ORDERABLES Performing Organization Address [facility] de Phone Number EVERTON SANTOS documented in [...] PRN, Starting on 11/20/15 at 1503, Until Fri11/24/15 at 1237, Pain, [...] 4 mg, Intravenous, ONCE, 1 dose, On Christina 12/24/15 at 1215 Given 11/23/2015 12:27 PM EST [...] OPEN, Routine 2015 (Given - Provider: Brittaney White, HUONG) ketorolac (TORADOL) injection 15 mg (COMPLETED) 15 [...] minute after administration, will discuss sinan care team)1535 (Given - Provider: Birgit Martel, HUONG)2019 (Given - Provider: Brittaney White RN) 0805 [...] White RN) 1018 (Given - Provider: Birgit Martel, RN)2019 (Given - Provider: Brittaney White RN) 0810 (Given - Provider: Birgit Martel, RN) PRN Medication Order 11/22/2015 11/23/2015 11/24/2015 acetaminophen (TYLENOL) tablet 650 mg (CANCELED) 650 mg, Oral, EVERY 4 HOURS PRN, Starting on 11/20/15 at 1503, Until Fri11/24/15 at 1237, Pain, [...] Starting on Christina 11/23/15 at 0212, Until Fri11/23/15 at 1147, Nausea 0227 (Given - Provider: [...] Routine documented in this encounter Care Teams Firer Portable Boiler Relationship Specialty Start Date End Date Janee Salinas MD PCP - General Family Medicine 09/20/15 09/29/23 documented as of this encounter
--- OUTSIDE RECORDS SUMMARY | 2024-09-21 22:59 | XMS_ITS | Encounter Summary ---
Author Organization [facility] [place] [address] Care Team Providers Care Caramel Cutter Machine Name Role Phone Jose Manuel Kimble MD Primary Care Provider [phone] Reason for Visit * Reason Onset Date Comments Medication Refill 04/30/2017 Encounter Details Date Type Department Care Team (Late Contact Info) Description 04/30/2017 [place] [address] Kwabena Garcia MD [facility] [place] [address] Social History Tobacco Use Types Packs/Day Years [...] AM EST Office Visit Hematology/Oncology at [address] [phone] Shayla Vuong APRN [facility] [address] [place] [address] 10/06/2024 9:30 AM EST Scheduled View Only Hematology/Oncology at [address] [phone] Ekta Womack RN 10/06/2024 9:30 AM EST Infusion Hematology Oncology at [address] [phone] 10/07/2024 12:30 PM EST Infusion Hematology Oncology at [address] [phone] 10/19/2024 10:00 AM EST Appointment [place] [address] Pia Cooper MD [facility] DR [place] [address] 10/19/2024 11:00 AM EST Appointment [place] [address] Pia Cooper MD [facility] [place] [address] 2024 9:00 AM EST Office Visit Hematology/Oncology at [address] [phone] Pia Cooper MD [facility] [place] [address] 2024 9:30 AM EST Scheduled View Only Hematology/Oncology at [address] [phone] Ekta Womack RN 2024 9:30 AM EST Infusion Hematology Oncology at [address] [phone] 11/17/2024 9:00 AM EST Office Visit Hematology/Oncology at [address] [phone] Shayla Vuong, CLEMENTE [facility] [place] [address] 11/17/2024 9:30 AM EST Scheduled View Only Hematology/Oncology at [address] [phone] Ekta Womack RN 11/17/2024 9:30 AM EST Infusion Hematology Oncology at [address] [phone] documented as of this encounter Visit Diagnoses Not on filedocumented in this encounter Care Teams Caramel Cutter Machine Relationship Specialty Start Date End Date Jose Manuel Kimble MD PCP - General Family Medicine 09/20/15 09/29/23 documented as of this encounter
--- OUTSIDE RECORDS SUMMARY | 2024-09-21 22:59 | XMS_ITS | Encounter Summary ---
Author Organization [place] [address] Care Team Providers Care Home Appliance Installer Name Role Phone Jose Manuel Kimble MD Primary Care Provider [phone] Encounter Details Date Type Department Care Team (Late st Contact Info) Description 03/26/2016 [place] [address] Ivory Allison LPN Social History Tobacco Use [...] AM EST Office Visit Hematology/Oncology at [address] [phone] Shayla Vuong, RENTAL CLERK TOOL AND EQUIPMENT [facility] DR HEMATOLOGY [place] [address] 10/06/2024 9:30 AM EST Scheduled View Only Hematology/Oncology at [address] [phone] Ekta Womack RN 10/06/2024 9:30 AM EST Infusion Hematology Oncology at [address] [phone] 10/07/2024 12:30 PM EST Infusion Hematology Oncology at [address] [address] 10/19/2024 10:00 AM EST Appointment [place] [address] Pia Cooper MD [facility] DR HEMATOLOGY [place] [address] 10/19/2024 11:00 AM EST Appointment [place] [address] Pia Cooper MD [facility] DR HEMATOLOG[place] [address] 2024 9:00 AM EST Office Visit Hematology/Oncology at [address] [phone] Pia Cooper MD [facility] DR HEMATOLOG[place] [address] 2024 9:30 AM EST Scheduled View Only Hematology/Oncology at [address] [address] Ekta Womack RN 2024 9:30 AM EST Infusion Hematology Oncology at [address] [address] 11/17/2024 9:00 AM EST Office Visit Hematology/Oncology at [address] [address] Shayla Vuong, CLEMENTE [facility] DR HEMATOLOGY [place] [address] 11/17/2024 9:30 AM EST Scheduled View Only Hematology/Oncology at [address] [address] Ekta Womack RN 11/17/2024 9:30 AM EST Infusion Hematology Oncology at [address] [phone] documented as of this encounter Visit Diagnoses Not on filedocumented in this encounter Care Teams Home Appliance Installer Relationship Specialty Start Date End Date Jose Manuel Kimble MD PCP - General Family Medicine 09/20/15 09/29/23 documented as of this encounter
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
--- OUTSIDE RECORDS SUMMARY | 2024-09-21 22:59 | XMS_ITS | Encounter Summary ---
Author Organization [facility] [place] [address] Care Team Providers Care Kerrick Kleaner Operator Name Role Phone Jose Manuel Kimble MD Primary Care Provider [phone] Reason for Visit * Reason Onset Date Comments Medication Refill 08/13/2017 Encounter Details Date Type Department Care Team (Late Contact Info) Description 08/13/2017 Refill [place] [address] Kwabena Garcia MD [facility] [place] [address] Mild cognitive impairment Social History Tobacco Use [...] AM EST Office Visit Hematology/Oncology at [address] [phone] Shayla Vuong, CELLOPHANE TESTER [facility] [address] [place] [address] 10/06/2024 9:30 AM EST Scheduled View Only Hematology/Oncology at [address] [phone] Ekta Womack RN 10/06/2024 9:30 AM EST Infusion Hematology Oncology at [address] [address] 10/07/2024 12:30 PM EST Infusion Hematology Oncology at [address] [address] 10/19/2024 10:00 AM EST Appointment [place] [address] Pia Cooper MD [facility] [place] [address] 10/19/2024 11:00 AM EST Appointment [place] [address] Pia Cooper MD [facility] [place] [address] 2024 9:00 AM EST Office Visit Hematology/Oncology at [address] [address] Pia Cooper MD [facility] [place] [address] 2024 9:30 AM EST Scheduled View Only Hematology/Oncology at [address] [phone] Ekta Womack RN 2024 9:30 AM EST Infusion Hematology Oncology at [address] [address] 11/17/2024 9:00 AM EST Office Visit Hematology/Oncology at [address] [address] Shayla Vuong, CELLOPHANE TESTER [facility] [address] [place] [address] 11/17/2024 9:30 AM EST Scheduled View Only Hematology/Oncology at [address] [phone] Ekta Womack RN 11/17/2024 9:30 AM EST Infusion Hematology Oncology at [address] [phone] documented as of this encounter Visit Diagnoses Diagnosis Mild cognitive impairment Mild cognitive impairment, so stated documented in this encounter Care Teams Kerrick Kleaner Operator Relationship Specialty Start Date End Date Jose Manuel Kimble MD PCP - General Family Medicine 09/20/15 09/29/23 documented as of this encounter
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
--- OUTSIDE RECORDS SUMMARY | 2024-09-21 22:59 | XMS_ITS | Encounter Summary ---
[place] [address] Care Team Providers Care Window And Siding Craftsman Name Role Phone Jose Manuel Kimble MD Primary Care Provider [phone] Encounter Details Date Type Department Care Team (Late Contact Info) Description 03/07/2020 Telephone [place] [address] Kwabena Garcia MD [facility] [place] [address] Social History Tobacco Use Types Packs/Day Years [...] changes in medications. Any questions, please call [phone] documented in this encounter Plan of Treatment Upcoming Encounters Date Type Department Care Team (Late Contact Info) Description 10/06/2024 9:00 AM EST Office Visit Hematology/Oncology at [address] [phone] Shayla Vuong APRN [facility] DR HEMATOLOGY [place] [address] 10/06/2024 9:30 AM EST Scheduled View Only Hematology/Oncology at [address] [phone] Ekta Womack, RN 10/06/2024 9:30 AM EST Infusion Hematology Oncology at [address] [phone] 10/07/2024 12:30 PM EST Infusion Hematology Oncology at [address] [phone] 10/19/2024 10:00 AM EST Appointment [place] [address] Pia Cooper MD [facility] HEMATOLOGY [place] [address] 10/19/2024 11:00 AM EST Appointment [place] [address] Pia Cooper MD [facility] DR HEMATOLOGY [place] [address] 2024 9:00 AM EST Office Visit Hematology/Oncology at [address] [phone] Pia Cooper MD [facility] DR HEMATOLOGY [place] [address] 2024 9:30 AM EST Scheduled View Only Hematology/Oncology at [address] [phone] Ekta Womack, RN 2024 9:30 AM EST Infusion Hematology Oncology at [address] [phone] 11/17/2024 9:00 AM EST Office Visit Hematology/Oncology at [address] [address] Shayla Vuong APRN [facility] DR HEMATOLOGY [place] [address] 11/17/2024 9:30 AM EST Scheduled View Only Hematology/Oncology at [address] [phone] Ekta Womack RN 11/17/2024 9:30 AM EST Infusion Hematology Oncology at [address] [phone] documented as of this encounter Visit Diagnoses Not on filedocumented in this encounter Care Teams Window And Siding Craftsman Relationship Specialty Start Date End Date Jose Manuel Kimble MD PCP - General Family Medicine 09/20/15 09/29/23 documented as of this encounter
--- OUTSIDE RECORDS SUMMARY | 2024-09-21 22:59 | XMS_ITS | Encounter Summary ---
Author [place] [address] Care Team Providers Care Bow Stapler Name Role Phone Jose Manuel Kimble MD Primary Care Provider [phone] Reason for Visit * Reason Onset Date Comments Prior Authorization 03/26/2016 Prior Author ization for Medication Encounter Details Date Type Department Care Team (Late st Contact Info) Description 03/26/2016 Telephone [place] [address] Kwabena Garcia MD [facility] [place] [address] Prior Authorization (Prior Authorization for Medication) Social [...] Health Plan: Express Phone: Fax: ID # [id number] Authorizing Rep: Authorization Number (if applicable): [id number] Notified: Patient ( x ) Pharmacy ( [...] - 03/26/2016 3:37 PM EDT Smita from [facility] called to check on status of PA for lacosamide (VIMPAT) 200 mg Tablet. Smita states that it is important to know what is going on with this, as patient is completely out of this medication. Please call [facility]: [phone] documented in this encounter Plan of Treatment Upcoming Encounters Date Type Department Care Team (Late st Contact Info) Description 10/06/2024 9:00 AM EST Office Visit Hematology/Oncology at [address] [phone] Shayla Vuong [facility] [place] [address] 10/06/2024 9:30 AM EST Scheduled View Only Hematology/Oncology at [address] [phone] Ekta Womack RN 10/06/2024 9:30 AM EST Infusion Hematology Oncology at [address] [phone] 10/07/2024 12:30 PM EST Infusion Hematology Oncology at [address] [address] 10/19/2024 10:00 AM EST Appointment [place] [address] Pia Cooper MD [facility] DR HEMATOLOGY [place] [address] 10/19/2024 11:00 AM EST Appointment [place] [address] Pia Cooper MD [facility] [place] [address] 2024 9:00 AM EST Office Visit Hematology/Oncology at [address] [phone] Pia Cooper MD [facility] [place] [address] 2024 9:30 AM EST Scheduled View Only Hematology/Oncology at [address] [phone] Ekta Womack, RN 2024 9:30 AM EST Infusion Hematology Oncology at [address] [phone] 11/17/2024 9:00 AM EST Office Visit Hematology/Oncology at [address] [phone] Shayla Vuong APRN [facility] [place] [address] 11/17/2024 9:30 AM EST Scheduled View Only Hematology/Oncology at [address] [phone] Ekta Womack, RN 11/17/2024 9:30 AM EST Infusion Hematology Oncology at [address] [phone] documented as of this encounter Visit Diagnoses Not on filedocumented in this encounter Care Teams Bow Stapler Relationship Specialty Start Date End Date Jose Manuel Kimble MD PCP - General Family Medicine 09/20/15 09/29/23 documented as of this encounter
--- OUTSIDE RECORDS SUMMARY | 2024-09-21 22:59 | XMS_ITS | Encounter Summary ---
Author Organization [facility] [place] [address] Care Team Providers Care Preprint Analyst Name Role Phone Jose Manuel Kimble MD Primary Care Provider [phone] Encounter Details Date Type Department Care Team (Late Contact Info) Description 10/02/2019 Ancillary Procedure Radiology Library [place] [address] Jose Manuel Kimble MD [address] [address] Social History Tobacco Use Types Packs/Day Years [...] AM EST Office Visit Hematology/Oncology at [address] [phone] Shayla Vuong, BEATER WORKER HELPER [facility] DR HEMATOLOGY [place] [address] 10/06/2024 9:30 AM EST Scheduled View Only Hematology/Oncology at [address] [phone] Ekta Womack RN 10/06/2024 9:30 AM EST Infusion Hematology Oncology at [address] [phone] 10/07/2024 12:30 PM EST Infusion Hematology Oncology at [address] [address] 10/19/2024 10:00 AM EST Appointment [place] [address] Pia Cooper MD [facility] DR [place] [address] 10/19/2024 11:00 AM EST Appointment [place] [address] Pia Cooper MD [facility] [place] [address] 2024 9:00 AM EST Office Visit Hematology/Oncology at [address] [phone] Pia Cooper MD [facility] DR [place] [address] 2024 9:30 AM EST Scheduled View Only Hematology/Oncology at [address] [phone] Ekta Womack RN 2024 9:30 AM EST Infusion Hematology Oncology at [address] [phone] 11/17/2024 9:00 AM EST Office Visit Hematology/Oncology at [address] [phone] Shayla Vuong APRN [facility] DR [place] [address] 11/17/2024 9:30 AM EST Scheduled View Only Hematology/Oncology at [address] [phone] Ekta Womack RN 11/17/2024 9:30 AM EST Infusion Hematology Oncology at [address] [phone] documented as of this encounter Procedures Procedure Name Priority Date/Time Associated Diagnosis Comments FILM LIBRARY STORAGE ONLY CT SPINE Routine 10/02/2019 12:00 AM EDT documented in this encounter Results * Film Library- Storage Only CT Spine (10/02/2019 12:00 AM EDT) Narrative [facility] - 10/06/2019 12:33 PM EST This exam is auto-finalizing. It's purpose is for storage only. Jose Manuel Kimble MD [facility] FILM LIBRARY ORD ERABLES Performing Organization Address City/State/[facility] Co de Phone Number [place], [place] documented in this encounter Visit Diagnoses Not on filedocumented in this encounter Care Teams Preprint Analyst Relationship Specialty Start Date End Date Jose Manuel Kimble MD PCP - General Family Medicine 09/20/15 09/29/23 documented as of this encounter
--- OUTSIDE RECORDS SUMMARY | 2024-09-21 22:59 | XMS_ITS | Encounter Summary ---
[place] [address] Care Team Providers Care Xerox Machine Assembler Name Role Phone Jose Manuel Kimble MD Primary Care Provider [phone] Encounter Details Date Type Department Care Team (Late st Contact Info) Description 11/26/2015 [place] [phone] Robyn Morales MD [facility] [place] [address] Social History Tobacco Use Types Packs/Day Years [...] AM EST Office Visit Hematology/Oncology at [address] [phone] Shayla Vuong APRN [facility] DR [place] [address] 10/06/2024 9:30 AM EST Scheduled View Only Hematology/Oncology at [address] [phone] Ekta Womack RN 10/06/2024 9:30 AM EST Infusion Hematology Oncology at [address] [phone] 10/07/2024 12:30 PM EST Infusion Hematology Oncology at [address] [phone] 10/19/2024 10:00 AM EST Appointment [place] [address] Pia Cooper MD [facility] [place] [address] 10/19/2024 11:00 AM EST Appointment [place] [address] Pia Cooper MD [facility] HEMATOLOGY [place] [address] 2024 9:00 AM EST Office Visit Hematology/Oncology at [address] [phone] Pia Cooper MD [facility] DR [place] [address] 2024 9:30 AM EST Scheduled View Only Hematology/Oncology at [address] [phone] Ekta Womack, RN 2024 9:30 AM EST Infusion Hematology Oncology at [address] [phone] 11/17/2024 9:00 AM EST Office Visit Hematology/Oncology at [address] [phone] Shayla Vuong APRN [facility] [place] [address] 11/17/2024 9:30 AM EST Scheduled View Only Hematology/Oncology at [address] [phone] Ekta Womack, RN 11/17/2024 9:30 AM EST Infusion Hematology Oncology at [address] [phone] documented as of this encounter Visit Diagnoses Not on filedocumented in this encounter Care Teams Xerox Machine Assembler Relationship Specialty Start Date End Date Jose Manuel Kimble MD PCP - General Family Medicine 09/20/15 09/29/23 documented as of this encounter
--- OUTSIDE RECORDS SUMMARY | 2024-09-21 22:59 | XMS_ITS | Encounter Summary ---
Author Organization [facility] [place] [address] Care Team Providers Care Movie Extra Name Role Phone Jose Manuel Kimble MD Primary Care Provider [phone] Encounter Details Date Type Department Care Team (Late st Contact Info) Description 03/03/2020 External [place] [address] Kwabena Garcia MD [facility] [place] [address] Social History Tobacco Use Types Packs/Day Years [...] 9:00 AM EST Office Visit Hematology/Oncology at [address] [phone] Shayla Vuong APRN [facility] DR HEM[place]Y [place] [address] 10/06/2024 9:30 AM EST Scheduled View Only Hematology/Oncology at [address] [phone] Ekta Womack, RN 10/06/2024 9:30 AM EST Infusion Hematology Oncology at [address] [phone] 10/07/2024 12:30 PM EST Infusion Hematology Oncology at [address] [phone] 10/19/2024 10:00 AM EST Appointment [place] [address] Pia Cooper MD [facility] DR HEM[place]Y [place] [address] 10/19/2024 11:00 AM EST Appointment [place] [address] Pia Cooper MD [facility] DR HEM[place] [address] 2024 9:00 AM EST Office Visit Hematology/Oncology at [address] [phone] Pia Cooper MD [facility] [place] [address] 2024 9:30 AM EST Scheduled View Only Hematology/Oncology at [address] [phone] Ekta Womack RN 2024 9:30 AM EST Infusion Hematology Oncology at [address] [phone] 11/17/2024 9:00 AM EST Office Visit Hematology/Oncology at [address] [phone] Shayla Vuong, CLEMENTE [facility] DR HEM[place]OLOGY [place] [address] 11/17/2024 9:30 AM EST Scheduled View Only Hematology/Oncology at [address] [phone] Ekta Womack RN 11/17/2024 9:30 AM EST Infusion Hematology Oncology at [address] [phone] documented as of this encounter Procedures Procedure [...]
--- OUTSIDE RECORDS SUMMARY | 2024-09-21 22:59 | XMS_ITS | Encounter Summary ---
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 [place] [address] 10/06/2024 9:30 AM EST Scheduled View Only Hematology/Oncology at [address] [phone] Ekta Womack RN 10/06/2024 9:30 AM EST Infusion Hematology Oncology at [address] [phone] 10/07/2024 12:30 PM EST Infusion Hematology Oncology at [address] [phone] 10/19/2024 10:00 AM EST Appointment [place] [address] Pia Cooper MD [facility] [place] [address] 10/19/2024 11:00 AM EST Appointment [place] [address] Pia Cooper MD [facility] [place] [address] 2024 9:00 AM EST Office Visit Hematology/Oncology at [address] [phone] Pia Cooper MD [facility] [place] [address] 2024 9:30 AM EST Scheduled View Only Hematology/Oncology at [address] [phone] Ekta Womack RN 2024 9:30 AM EST Infusion Hematology Oncology at [address] [phone] 11/17/2024 9:00 AM EST Office Visit Hematology/Oncology at [address] [phone] Shayla Vuong APRN [facility] [place] [address] 11/17/2024 9:30 AM EST Scheduled View Only Hematology/Oncology at [address] [phone] Ekta Womack RN 11/17/2024 9:30 AM EST Infusion Hematology Oncology at [address] [phone] documented as of this encounter Procedures Procedure Name Priority Date/Time Associated Diagnosis Comments PROTHROMBIN TIME Routine 07/23/2005 1:30 PM EDT documented in this encounter Results * (ABNORMAL) Prothrombin Time (07/23/2005 1:30 PM EDT) Prothrombin Time 11.2(Exte rnal Lab) 9.4 - 11.8 SECONDS QUINTIN GARCIA DAY CONVERSION International Normalization Ratio 1.1(Exter nal Lab) QUINTIN GARCIA DAY CONVERSION 07/23/2005 1:30 PM EDT Results Provider Apd Conversion HEMAT OLOGY ORDERABLES QUINTIN GARCIA DAY CONVERSION documented in this encounter Visit Diagnoses Not on filedocumented in this encounter Care Teams Tearer Relationship Specialty Start Date End Date Jose Manuel Kimble MD PCP - General Family Medicine 09/20/15 09/29/23 documented as of this encounter
[2024-09-21 23:15] LABS: Lactate 2.8 mmol/L (0.6-1.4)
[2024-09-21 23:17] LABS: HCT 32.1 % (40.0-50.0); HGB 10.7 g/dL (13.5-17.5); MCH 31.5 pg (27.0-33.0); MCHC 33.3 % (32.0-36.0); MCV 94 fL (80-95); MPV 9.6 fL (8.0-11.0); Platelet Count 147 10^3/uL (130-400); RDW 16.1 % (11.8-14.1)
[2024-09-21 23:20] LABS: INR 1.1 (0.9-1.1); PTT Activated 23.2 sec (23.6-32.8)
[2024-09-21] MEDS: Lactated Ringers 1,000 ML 1000 ML IV (23:26)
[2024-09-21] MEDS: AZITHROMYCIN 500 MG in DEXTROSE 5%-WATER 250 ML 250 MG IVPB (23:26)
[2024-09-21 23:27] LABS: Bilirubin Negative (Negative); Blood Negative (Negative); Clarity Clear (Clear); Glucose Negative (Negative); Ketones Trace mg/dL (Negative); Leukocyte Esterase Negative (Negative); Nitrite Negative (Negative); Specific Gravity >= 1.030 (1.005-1.025); Urobilinogen 0.2 mg/dL (Up to 0.2)
[2024-09-21] MEDS: PIPERACILLIN/TAZO 4.5 GM in Normal Saline 100 ML IVPB (23:27)
[2024-09-21 23:30] LABS: ALT 21 U/L (16-63); AST 18 U/L (15-37); Albumin 3.4 g/dL (3.4-5.0); Alkaline Phosphatase 77 U/L (46-116); BUN 18 mg/dL (7-18); Bilirubin, Total 0.78 mg/dL (0.2-1.0); CREATININE 1.5 mg/dL (0.70-1.30); Calcium 8.7 mg/dL (8.5-10.1); Chloride 102 mmol/L (98-107); Estimated GFR 56.37 (mL/min/1.73m2); Glucose 117 mg/dL (74-106); Potassium 3.9 mmol/L (3.5-5.1); Sodium 139 mmol/L (136-145); Total Protein 6.5 g/dL (6.4-8.2)
[2024-09-21 23:42] LABS: Absolute Lymphocyte Count 0.18 10^3/uL (1.2-3.4); Absolute Monocyte Count 0.02 10^3/uL (0.1-0.8); Absolute Neutrophil Count 0.68 10^3/uL (1.2-6.7); Bands % 6 %; Metamyelocytes % 2
[2024-09-21 23:43] LABS: Procalcitonin 0.5 ng/mL
[2024-09-21 23:44] LABS: WBC 0.89 10^3/uL (4.4-10.8)
--- NOTE | 2024-09-21 23:44 | W.ED.GENAD ---
Discharge Plan Disposition Patient Disposition: Admit to [facility] Condition: Good Discharge Details Clinical Impression: Fever and neutropenia, Esophagitis, Acute GI bleeding, Sepsis Primary Care Provider: Cholo Whitfield ED Provider: Luigi Hagan Home Meds and New Rx's Prescriptions: No Action lamotrigine 200 mg tablet 200 mg PO BID Qty: 180 3RF Vimpat 200 mg tablet 100 mg PO BID Qty: 90 1RF ibuprofen 200 mg capsule 400 mg PO TID-QID PRN acyclovir 400 mg tablet 400 mg PO BID allopurinol 300 mg tablet 300 mg PO DAILY prednisone 50 mg tablet 100 mg PO DAILY ondansetron 8 mg tablet,disintegrating 8 mg PO BID prochlorperazine maleate [Compazine] 10 mg tablet 10 mg PO TID sennosides [senna] 8.6 mg tablet 8.6 mg PO QD-BID PRN omeprazole 20 mg capsule,delayed release(DR/EC) 20 mg PO DAILY loratadine [Claritin] 10 mg tablet 10 mg PO DAILY HPI General Date/Time Provider Initiated Documentation: 09/21/24 22:38. HPI Narrative: 48-year-old male with past medical history of epilepsy on Vimpat diffuse large B-cell lymphoma, currently on chemotherapy with pegfilgrastim, currently on prophylactic antibiotics of levofloxacin 500 mg daily and Bactrim DS every Friday, who has received his third dose of chemotherapy 6 days ago Bustos today who presents today for fever. Fever began at 6:44 PM, with a Tmax of 103.7. Tylenol was given at that time, and the patient was brought in for further assessment. He also had 1 episode of slightly bloody stools yesterday, and 2 episodes today. He denies any abdominal pain. He does admit to a very mild right frontal headache. He denies any neck pain or neck stiffness. He denies any significant abdominal discomfort or chest pain. He denies any cough. He denies any dysuria. He denies any throat pain. He denies any other complaints at this time. Patient was admitted for neutropenic fever here at [facility] on 08/12/2024 with no identifiable source noted. Related Data Home Medications ?Medication ?Instructions ?Recorded ?Confirmed acyclovir 400 mg tablet 400 mg PO BID 08/11/24 09/21/24 allopurinol 300 mg tablet 300 mg PO DAILY 08/11/24 09/21/24 ibuprofen 200 mg capsule 400 mg PO TID-QID PRN 08/11/24 09/21/24 loratadine 10 mg tablet (Claritin) 10 mg PO DAILY 08/11/24 09/21/24 omeprazole 20 mg capsule,delayed 20 mg PO DAILY 08/11/24 09/21/24 release ondansetron 8 mg disintegrating 8 mg PO BID 08/11/24 09/21/24 tablet prednisone 50 mg tablet 100 mg PO DAILY 08/11/24 09/21/24 prochlorperazine maleate 10 mg 10 mg PO TID 08/11/24 09/21/24 tablet (Compazine) sennosides 8.6 mg tablet (senna) 8.6 mg PO QD-BID PRN 08/11/24 09/21/24 Vimpat 200 mg tablet (lacosamide) 100 mg (1/2 x 200 mg) PO BID #90 09/06/24 09/21/24 tabs lamotrigine 200 mg tablet 200 mg PO BID #180 tabs 09/13/24 09/21/24 Previous Rx's ?Medication ?Instructions ?Recorded Vimpat 200 mg tablet (lacosamide) 100 mg (1/2 x 200 mg) PO BID #90 09/06/24 tabs lamotrigine 200 mg tablet 200 mg PO BID #180 tabs 09/13/24 Allergies Allergy/AdvReac Type Severity Reaction Status Date / Time No Known Allergies Allergy Verified 09/21/24 22:48 General Stated Complaint: GenMedical CHRISTIE: 3 Review of Systems All systems reviewed & are unremarkable except as noted in HPI and below Exam Narrative Exam Narrative: 1.Const: Well-nourished, Well-developed, appearing stated age 2.Eyes: PERRL, no conjunctival injection, and symmetrical lids. 3.ENT: Atraumatic external nose and ears. Moist MM. Neck: Symmetric, trachea midline, No thyromegaly. 4.CVS: +S1/S2, Peripheral pulses 2+ and equal in all extremities. Brisk capillary refill in all extremities. 5.RESP: Unlabored respiratory effort. Clear to auscultation bilaterally. No wheezes rales or rhonchi 6.GI: Soft, Nontender/Nondistended, No hepatosplenomegaly. No guarding or rebound. 7.MSK: Normocephalic/Atraumatic, Extremities w/o deformity or ttp No cyanosis or clubbing, Normal movement of all extremities 8.Skin: Warm, Dry. No rashes or lesions. Left-sided chest port is in place with no redness or tenderness. 9.Neuro: television receiver analyzer II-XII grossly intact. Sensation grossly intact, no focal neurologic deficits. 10.Psych: (AAO) x3. Appropriate mood and affect Course Vital Signs Vital signs: Vital Signs Temperature 37.8 C H 09/21/24 22:39 Pulse 112 H 09/21/24 22:39 Respiratory Rate 26 H 09/21/24 22:39 Blood Pressure 135/73 09/21/24 22:39 Pulse Oximetry 97 09/21/24 22:39 Temperature 37.8 C H 09/21/24 22:39 Temperature Source Oral 09/21/24 22:39 Pulse 114 H 09/21/24 22:43 Respiratory Rate 28 H 09/21/24 22:43 Respiratory Effort Normal, Non-Labored 09/21/24 22:43 Respiratory Depth Normal 09/21/24 22:43 Respiratory Pattern Normal 09/21/24 22:43 Blood Pressure 135/73 09/21/24 22:39 Blood Pressure Position Sitting 09/21/24 22:39 Pulse Oximetry 95 09/21/24 22:43 Oxygen Delivery Method Room Air 09/21/24 22:39 Oxygen Flow Rate 0 09/21/24 22:39 Pain Level 0 09/21/24 22:39 Lab/Test Results Lab/Test Results: 09/21/24 22:55 Blood Blood Culture - Pending 09/21/24 22:45 Blood Blood Culture - Pending Laboratory Tests Range/Units 09/21/24 09/21/24 22:45 23:05 PT (9.1-11.1) sec 11.0 INR (0.9-1.1) 1.1 APTT (23.6-32.8) sec 23.2 L VBG Lactate (0.6-1.4) mmol/L 2.8 H* Sodium (136-145) mmol/L 139 Potassium (3.5-5.1) mmol/L 3.9 Chloride (98-107) mmol/L 102 Carbon Dioxide (21.0-32.0) mmol/L 28.0 Anion Gap (3-11) mmol/L 9.0 BUN (7-18) mg/dL 18 Creatinine (0.70-1.30) mg/dL 1.5 H Est GFR (CKD-EPI 2020) (mL/min/1.73m2) 56.37 Glucose (74-106) mg/dL 117 H Calcium (8.5-10.1) mg/dL 8.7 Total Bilirubin (0.2-1.0) mg/dL 0.78 AST (15-37) U/L 18 ALT (16-63) U/L 21 Alkaline Phosphatase (46-116) U/L 77 Total Protein (6.4-8.2) g/dL 6.5 Albumin (3.4-5.0) g/dL 3.4 Procalcitonin ng/mL 0.5 Urine Color (Yellow) Yellow Urine Clarity (Clear) Clear Urine pH (5-8) 6.0 Ur Specific Forgan (1.005-1.025) >= 1.030 H Urine Protein (Neg-Trace) mg/dL Negative Urine Ketones (Negative) mg/dL Trace H Urine Blood (Negative) Negative Urine Nitrite (Negative) Negative Urine Bilirubin (Negative) Negative Urine Urobilinogen (Up to 0.2) mg/dL 0.2 Ur Leukocyte Esterase (Negative) Negative Urine Glucose (Negative) mg/dL Negative Medical Decision Making 48-year-old male with past medical history of epilepsy on Vimpat diffuse large B-cell lymphoma, currently on chemotherapy with pegfilgrastim, currently on prophylactic antibiotics of levofloxacin 500 mg daily and Bactrim DS every Friday, who has received his third dose of chemotherapy 6 days ago Bustos today who presents today for fever. Fever began at 6:44 PM, with a Tmax of 103.7. Tylenol was given at that time, and the patient was brought in for further assessment. He also had 1 episode of slightly bloody stools yesterday, and 2 episodes today. He denies any abdominal pain. He does admit to a very mild right frontal headache. He denies any neck pain or neck stiffness. He denies any significant abdominal discomfort or chest pain. He denies any cough. He denies any dysuria. He denies any throat pain. He denies any other complaints at this time. Patient was admitted for neutropenic fever here at [facility] on 08/12/2024 with no identifiable source noted. Exam demonstrates well-appearing male who is tachycardic, febrile, mildly tachypneic. No hypoxemia. No hypotension or shock. No abdominal tenderness. Rectal exam was deferred secondary to potential for neutropenia. He denies any rectal pain. Lungs are clear. No meningeal signs, no nuchal rigidity. Differential includes viral etiology, translocation of gut or oral jessica causing transient bacteremia, for less likely potential pneumonia or mild colitis. Will get a CT scan of the abdomen and chest to evaluate for infectious etiology and to assess for colitis, secondary to the patient meeting sepsis criteria and with his tachycardia we will give a liter of fluid. I do feel that it is indicated secondary to his the critical nature of his symptoms. We will start broad-spectrum early antibiotics of vancomycin Zosyn and azithromycin. Symptoms appear inconsistent with meningitis clinically. No rash to suggest a focal skin infection source. 2:01 AM Patient's laboratory workup has returned, he has a white count of 0.89 with a hemoglobin of 10.7 which is about a point half drop from his last hemoglobin a week ago. Platelets are normal though. He has 6% bands with an absolute neutrophil count of 0.68. Lactate is high at 2.8, we will recheck this as he did get fluid bolus of 1 L. No hypotension or shock. Heart rate now down to 106. Fever remains, we will give Ofirmev. Electrolytes normal. Urinalysis shows no evidence of infection, COVID flu RSV are negative. CT chest negative for pneumonia, he does have thickening of the distal esophagus, which certainly may represent esophagitis and a potential source of the blood that was noted in the stools. We will give Protonix and famotidine. CT scan of the abdomen demonstrates no acute process or evidence of colitis. Pending callback from oncology, however I do feel that the patient would benefit appropriately from admission here for continued monitoring and antibiotics while waiting on blood cultures. 2:31 AM Discussed case with the hospitalist Dr. Oliveros, he agrees with the assessment and plan. I will place bridging orders on his behalf. I have extensively reviewed the treatment plan with the patient. I have addressed all patient concerns at this time. I have also discussed the plan with the admitting physician and they agree with the current assessment and plan and have agreed to assume responsibility for the patient. All parties demonstrate verbal understanding and agreement with our assessment and plan at this time. The documentation in this chart was dictated using Mama dictation software. Please excuse any dictation errors. Prior to admission the patient did have low blood pressure in the mid 90s. Second liter of fluid was started and is now doing well with a MAP greater than 65 with a systolic in the 100s to 110s. Patient stable for MedSurg. FINDINGS: Tubes, catheters and devices: Left chest port seen with distal tip in the SVC. Lungs: Linear bibasilar opacities most consistent with subsegmental atelectasis. Pleural spaces: Unremarkable. No pneumothorax. No pleural effusion. Heart: Unremarkable. No cardiomegaly. No pericardial effusion. Esophagus: Thickening of the visualized distal esophagus. Lymph nodes: Unremarkable. No enlarged lymph nodes. Vasculature: Unremarkable. No aortic aneurysm. Diaphragm: A small hiatal hernia is present. Bones/joints: No acute osseous abnormality. Soft tissues: Soft tissues are unremarkable as visualized. Other findings: No lesions. No enlargement. IMPRESSION: Thickening of the visualized distal esophagus. Correlate for esophagitis though esophageal mass lesions are not well excluded on CT FINDINGS: Lungs: Clear Liver: The liver is unremarkable. Gallbladder and biliary ducts: No gallstones. Nondistended. No wall thickening. Pancreas: The pancreas is unremarkable. Spleen: Splenomegaly Adrenal glands: The adrenal glands are unremarkable. Kidneys and ureters: Bilateral renal cysts are present, as well as other subcentimeter hypodensities which are too small to characterize. Stomach and bowel: Unremarkable. No obstruction. No mucosal thickening. Appendix: Normal appendix. Intraperitoneal space: Unremarkable. No free air. No significant fluid collection. Vasculature: Unremarkable. No abdominal aortic aneurysm. Lymph nodes: No adenopathy. No edema. Urinary bladder: The urinary bladder is distended. Reproductive: Unremarkable as visualized. Bones/joints: L5/S1 disc space narrowing with posterior disc bulge. Soft tissues: Small fat containing inguinal hernias Other findings: No evidence of stenosis, occlusion, dissection or aneurysm. IMPRESSION: No acute abdominal or pelvic process Thank you for allowing us to participate in the care of your patient. Dictated and Authenticated by: Ruth Garcia MD 09/22/2024 1:41 AM Eastern Time ([place] & [place]) Quality:SDOH Health Related Social Needs: No Data to Display Critical Care Time Critical Care Time Critical Care Time: Yes Total Critical Care Time: 45 Attestation: Upon my evaluation, this patient had a high probability of imminent or life-threatening deterioration, which required my direct attention, intervention, and personal management. I have personally provided 45 minutes of critical care time exclusive of time spent on separately billable procedures. Time includes review of laboratory data, radiology results, discussion with consultants, and monitoring for potential decompensation. Interventions were performed as documented. [facility] All Active Problems (Updated 09/22/24 @ 02:32 by Luigi Hagan DO) Sepsis (Acute) Acute GI bleeding (Acute) Esophagitis (Acute) Fever and neutropenia (Acute) Lymphoma (Acute) Depressive disorder (Chronic) Hand paresthesia (Acute) Wax in ear (Acute) Fatigue (Acute) Memory loss (Acute) Partial epilepsy (Acute) New onset headache (Acute) Medical History (Updated 09/22/24 @ 02:32 by Luigi Hagan DO) Seizure, temporal lobe Lazy eye Surgical History History of cranial surgery L temporal lobectomy for seizures H/O vasectomy History of back surgery x3 at [facility]; last in 2003? Family History Father Diabetes Mother Alzheimer disease Sister Diabetes Social History Smoking/Tobacco Use Status: Never Smoking risk assessment performed?: Yes Alcohol Intake: never Details: OCCASTIONAL Substance use type: marijuana Details: CBD pen Household members: significant other Housing: house Number of Children: 3 current occupation: [employer] in [employer] What is your relationship status?: Panel score (0-1 are the most socially isolated patients): 0 What type of physical activity do you participate in: walking Seatbelt use: always Do you feel safe at home: Yes Do you feel safe in your relationship?: Yes
[2024-09-21 23:46] LABS: Anisocytosis 1+; Diff Comment Manual Differential
[2024-09-21] MEDS: Omnipaque 350 MG/ML 100 ML BTL IJ (23:46)
[2024-09-21 23:47] LABS: COVID-19 PCR Negative (Negative); Influenza A PCR Negative (Negative); Influenza B PCR Negative (Negative); RSV PCR Negative (Negative)
[2024-09-21] MEDS: Normal Saline - Diluent 50 ML VIAL IJ (23:47)
[2024-09-21 23:49] LABS: Source Nasopharynx
[2024-09-22] VITALS (108 sets, daily range): BP systolic 71–118; BP diastolic 19–92; PULSE 80–115; RESP 10–43; TEMP 35.9–39.7; O2SAT 65–100
--- NOTE | 2024-09-22 01:42 | DI.VRAD_ITS ---
PROCEDURE INFORMATION: Exam: CT Chest With Contrast; Diagnostic Exam date and time: 09/22/2024 12:02 AM Age: 48 years old Clinical indication: Fever and other: Bloody diarrhea; Patient HX: Neutropenic fever, bloody diarrhea. Primary cancer: Lymph TECHNIQUE: Imaging protocol: Diagnostic computed tomography of the chest with contrast. Radiation optimization: All CT scans at this facility use at least one of these dose optimization techniques: automated exposure control; mA and/or kV adjustment per patient size (includes targeted exams where dose is matched to clinical indication); or iterative reconstruction. Contrast material: [id number]; Contrast volume: 100 ml; Contrast route: INTRAVENOUS (IV); COMPARISON: CR XR PORTABLE CHEST AP 08/11/2024 9:25 PM FINDINGS: Tubes, catheters and devices: Left chest port seen with distal tip in the SVC. Lungs: Linear bibasilar opacities most consistent with subsegmental atelectasis. Pleural spaces: Unremarkable. No pneumothorax. No pleural effusion. Heart: Unremarkable. No cardiomegaly. No pericardial effusion. Esophagus: Thickening of the visualized distal esophagus. Lymph nodes: Unremarkable. No enlarged lymph nodes. Vasculature: Unremarkable. No aortic aneurysm. Diaphragm: A small hiatal hernia is present. Bones/joints: No acute osseous abnormality. Soft tissues: Soft tissues are unremarkable as visualized. Other findings: No lesions. No enlargement. IMPRESSION: Thickening of the visualized distal esophagus. Correlate for esophagitis though esophageal mass lesions are not well excluded on CT. PROCEDURE INFORMATION: Exam: CT Abdomen And Pelvis With Contrast Exam date and time: 09/22/2024 12:02 AM Age: 48 years old Clinical indication: Fever and other: Bloody diarrhea; Patient HX: Neutropenic fever, bloody diarrhea. Primary cancer: Lymph TECHNIQUE: Imaging protocol: Computed tomography of the abdomen and pelvis with contrast. Radiation optimization: All CT scans at this facility use at least one of these dose optimization techniques: automated exposure control; mA and/or kV adjustment per patient size (includes targeted exams where dose is matched to clinical indication); or iterative reconstruction. Contrast material: [id number]; Contrast volume: 100 ml; Contrast route: INTRAVENOUS (IV); COMPARISON: CT ABDOMEN PELVIS W 08/11/2024 10:33 PM FINDINGS: Lungs: Clear Liver: The liver is unremarkable. Gallbladder and biliary ducts: No gallstones. Nondistended. No wall thickening. Pancreas: The pancreas is unremarkable. Spleen: Splenomegaly Adrenal glands: The adrenal glands are unremarkable. Kidneys and ureters: Bilateral renal cysts are present, as well as other subcentimeter hypodensities which are too small to characterize. Stomach and bowel: Unremarkable. No obstruction. No mucosal thickening. Appendix: Normal appendix. Intraperitoneal space: Unremarkable. No free air. No significant fluid collection. Vasculature: Unremarkable. No abdominal aortic aneurysm. Lymph nodes: No adenopathy. No edema. Urinary bladder: The urinary bladder is distended. Reproductive: Unremarkable as visualized. Bones/joints: L5/S1 disc space narrowing with posterior disc bulge. Soft tissues: Small fat containing inguinal hernias. Other findings: No evidence of stenosis, occlusion, dissection or aneurysm. IMPRESSION: No acute abdominal or pelvic process Dictated and Authenticated by: Ruth Garcia MD. Ordering:DEBBIE Meyers MD
[2024-09-22] MEDS: ACETAMINOPHEN 1,000 MG/100 ML BTL 400 MG IVPB (02:15)
[2024-09-22] MEDS: Famotidine 20 MG/2 ML VIAL IVP ×2 (02:16→21:12)
[2024-09-22] MEDS: Pantoprazole 40 MG VIAL IVP ×2 (02:17→21:12)
[2024-09-22 02:35] LABS: Lactate 1.6 mmol/L (0.6-1.4)
[2024-09-22] MEDS: Normal Saline 1,000 ML 1000 ML IV (02:57)
[2024-09-22] MEDS: Sucralfate 1 GM TAB PO ×5 (02:58→21:13)
--- NOTE | 2024-09-22 04:11 | W.PC.ACHO ---
Registration Status: Primary Language: Preferred Language: ED Information & Data Chief Complaint GenMedical 09/21/24 23:50 Triage Note Pt here per Oncologist at 09/21/24 22:39 [facility] [place]ek, had third chemo tx last friday, now running fever. Denies pain, CP, SOB. States feels hot, liquid blood stool. Medical / Surgical History (Last Reviewed 09/21/24 @ 23:48 by Luigi Hagan DO) Seizure, temporal lobe Lazy eye (Last Reviewed 09/21/24 @ 23:48 by Luigi Hagan DO) History of cranial surgery H/O vasectomy History of back surgery Most Recent Vital Signs Temperature 37.2 C 09/22/24 03:44 Temperature Source Oral 09/22/24 03:44 Pulse 102 H 09/22/24 03:44 Respiratory Rate 16 09/22/24 03:44 Respiratory Effort Normal, Non-Labored 09/21/24 22:43 Respiratory Depth Normal 09/21/24 22:43 Respiratory Pattern Normal 09/21/24 22:43 Blood Pressure 106/55 L 09/22/24 03:44 Blood Pressure Position Sitting 09/21/24 22:39 Pulse Oximetry 100 09/22/24 03:44 Oxygen Delivery Method Room Air 09/22/24 03:44 Oxygen Flow Rate 0 09/22/24 03:44 Pain Level 0 09/22/24 03:44 Allergies No Known Allergies Allergy (Verified 09/21/24 22:48) Precautions Isolation Protective precaution 09/21/24 22:43 Active Medications Generic Name Dose Route Start Last Admin Trade Name Juanq PRN Reason Stop Dose Admin Iohexol 100 ml 09/21/24 23:45 09/21/24 23:46 Omnipaque 350 Mg/Ml 100 Ml Btl IJ 10/21/24 23:59 100 ml DIRECTED RADHA Administration Sodium Chloride 50 ml 09/21/24 23:45 09/21/24 23:47 Normal Saline - Diluent 50 Ml Vial IJ 50 ml .FOR DI USE RADHA Administration IV IV Catheter Type [Left Port-a-cath (single) Proximal Port] IV Catheter Type [Right Peripheral IV Antecubital] IV Catheter Gauge [Left 19 Proximal Port] IV Catheter Gauge [Right 18 Antecubital] Diagnostics 10/23/24 10/22/24 10/22/24 Range/Units 02:31 23:05 22:55 WBC (4.4-10.8) 10^3/uL RBC (4.36-5.78) 10^6/uL Hgb (13.5-17.5) g/dL Hct (40.0-50.0) % MCV (80-95) fL MCH (27.0-33.0) pg MCHC (32.0-36.0) % RDW (11.8-14.1) % Plt Count (130-400) 10^3/uL MPV (8.0-11.0) fL Immature Gran % % Neutrophils % % Band Neutrophils % % Lymphocytes % % Monocytes % % Eosinophils % % Basophils % % Metamyelocytes % Nucleated RBC % (0.0-0.3) % Absolute Neutrophils (1.2-6.7) 10^3/uL Absolute Lymphocytes (1.2-3.4) 10^3/uL Absolute Monocytes (0.1-0.8) 10^3/uL Absolute Eosinophils (0.0-0.7) 10^3/uL Absolute Basophils (0.0-0.2) 10^3/uL RBC Morphology Anisocytosis PT (9.1-11.1) sec INR (0.9-1.1) APTT (23.6-32.8) sec VBG Lactate 1.6 H (0.6-1.4) mmol/L Sodium (136-145) mmol/L Potassium (3.5-5.1) mmol/L Chloride (98-107) mmol/L Carbon Dioxide (21.0-32.0) mmol/L Anion Gap (3-11) mmol/L BUN (7-18) mg/dL Creatinine (0.70-1.30) mg/dL Est GFR (CKD-EPI 2020) (mL/min/1.73m2) Glucose (74-106) mg/dL Calcium (8.5-10.1) mg/dL Total Bilirubin (0.2-1.0) mg/dL AST (15-37) U/L ALT (16-63) U/L Alkaline Phosphatase (46-116) U/L Total Protein (6.4-8.2) g/dL Albumin (3.4-5.0) g/dL Procalcitonin ng/mL Urine Color Yellow (Yellow) Urine Clarity Clear (Clear) Urine pH 6.0 (5-8) Ur Specific [place] >= 1.030 H (1.005-1.025) Urine Protein Negative (Neg-Trace) mg/dL Urine Ketones Trace H (Negative) mg/dL Urine Blood Negative (Negative) Urine Nitrite Negative (Negative) Urine Bilirubin Negative (Negative) Urine Urobilinogen 0.2 (Up to 0.2) mg/dL Ur Leukocyte Esterase Negative (Negative) Urine Glucose Negative (Negative) mg/dL COVID-19 Source Nasopharynx SARS-CoV-2 (PCR) Negative (Negative) Influenza Type A (PCR) Negative (Negative) Influenza Type B (PCR) Negative (Negative) RSV (PCR) Negative (Negative) 09/21/24 Range/Units 22:45 WBC 0.89 L* (4.4-10.8) 10^3/uL RBC 3.40 L (4.36-5.78) 10^6/uL Hgb 10.7 L (13.5-17.5) g/dL Hct 32.1 L (40.0-50.0) % MCV 94 (80-95) fL MCH 31.5 (27.0-33.0) pg MCHC 33.3 (32.0-36.0) % RDW 16.1 H (11.8-14.1) % Plt Count 147 (130-400) 10^3/uL MPV 9.6 (8.0-11.0) fL Immature Gran % 0.0 % Neutrophils % 70.0 % Band Neutrophils % 6 % Lymphocytes % 20.0 % Monocytes % 2.0 % Eosinophils % 0.0 % Basophils % 0.0 % Metamyelocytes % 2 Nucleated RBC % 0.0 (0.0-0.3) % Absolute Neutrophils 0.68 L (1.2-6.7) 10^3/uL Absolute Lymphocytes 0.18 L (1.2-3.4) 10^3/uL Absolute Monocytes 0.02 L (0.1-0.8) 10^3/uL Absolute Eosinophils 0.00 (0.0-0.7) 10^3/uL Absolute Basophils 0.00 (0.0-0.2) 10^3/uL RBC Morphology See Below Anisocytosis 1+ PT 11.0 (9.1-11.1) sec INR 1.1 (0.9-1.1) APTT 23.2 L (23.6-32.8) sec VBG Lactate 2.8 H* (0.6-1.4) mmol/L Sodium 139 (136-145) mmol/L Potassium 3.9 (3.5-5.1) mmol/L Chloride 102 (98-107) mmol/L Carbon Dioxide 28.0 (21.0-32.0) mmol/L Anion Gap 9.0 (3-11) mmol/L BUN 18 (7-18) mg/dL Creatinine 1.5 H (0.70-1.30) mg/dL Est GFR (CKD-EPI 2020) 56.37 (mL/min/1.73m2) Glucose 117 H (74-106) mg/dL Calcium 8.7 (8.5-10.1) mg/dL Total Bilirubin 0.78 (0.2-1.0) mg/dL AST 18 (15-37) U/L ALT 21 (16-63) U/L Alkaline Phosphatase 77 (46-116) U/L Total Protein 6.5 (6.4-8.2) g/dL Albumin 3.4 (3.4-5.0) g/dL Procalcitonin 0.5 ng/mL Urine Color (Yellow) Urine Clarity (Clear) Urine pH (5-8) Ur Specific [place] (1.005-1.025) Urine Protein (Neg-Trace) mg/dL Urine Ketones (Negative) mg/dL Urine Blood (Negative) Urine Nitrite (Negative) Urine Bilirubin (Negative) Urine Urobilinogen (Up to 0.2) mg/dL Ur Leukocyte Esterase (Negative) Urine Glucose (Negative) mg/dL COVID-19 Source SARS-CoV-2 (PCR) (Negative) Influenza Type A (PCR) (Negative) Influenza Type B (PCR) (Negative) RSV (PCR) (Negative) 09/21/24 22:55 Blood Culture - Pending Blood 09/21/24 22:45 Blood Culture - Pending Blood Intake and Output - 24 Hour Total 09/21/24 22:37 thru 09/22/24 02:46 Intake Total 1480 Balance 1480 Weight 91.172 kg Intake: IV 1480 Falls Risk Assessment History of Falls No History 09/21/24 22:43 Contributing Factors No Factors 09/21/24 22:43 Ambulatory Aids Independent 09/21/24 22:43 Tubes/Lines None 09/21/24 22:43 Gait Evaluation No gait disturbance 09/21/24 22:43 Cognition No cognitive impairment 09/21/24 22:43 Fall Total Score 0 09/21/24 22:43 Level of Risk Standard/Low Risk 09/21/24 22:43 v v v v v v v v v Sending and/or Receiving Nurses: Please use comment section below to note any information pertinent to the patient hand-off not included above. Information / Comments: Lt chest port accessed w/ NS KVO. 18g RT arm. Report received from:
--- NOTE | 2024-09-22 06:01 | W.PM.HP.N ---
Date of service: 09/22/24 Time of Service: 06:01 Assessment and Plan Assessment and plan (1) Fever and neutropenia: Start date: 09/22/24 Status: Acute Assessment and plan: This is a 48-year-old gentleman with acute onset of fever at home 6 days after last chemotherapy. He does have a neutropenic fever at this time and will be admitted for broad-spectrum IV antibiotic therapy and antiviral therapy pending blood cultures. He did not have significant symptoms warranting lumbar puncture for further investigations at this time. He also has been having some blood in his stools and is being treated for acute gastritis/esophagitis. Symptomatic treatment while awaiting cultures with reverse isolation. Continue ongoing consultation with [facility] [place] as needed. He is a full code. (2) Sepsis: Start date: 09/22/24 Status: Acute Assessment and plan: Patient had fever with leukopenia and tachycardia as well as intermittent low blood pressure responded to IV fluids which mostly is for acute dehydration. He does not appear to have true shock. Watch closely for worsening symptoms and consider ICU level care with norepinephrine if needed. He is covered with IV right therapy and antivirals awaiting cultures. Consider expanded investigations such as lumbar puncture if headache worsens. He has no meningismus presently. There is no source of infection obvious at this time. Qualifiers: Sepsis acute organ dysfunction status: without acute organ dysfunction Sepsis type: sepsis due to unspecified organism Qualified Code(s): A41.9 - Sepsis, unspecified organism (3) Acute dehydration: Start date: 09/22/24 Status: Acute Assessment and plan: Patient received 2 L of IV fluid in the ED and will continue IV normal saline monitoring blood pressure closely. (4) Acute GI bleeding: Start date: 09/22/24 Status: Acute Assessment and plan: Patient is not significantly anemic though his hemoglobin did drop 2 g/dL with recent labs over the last couple weeks and he has normal platelet count but he does have leukopenia. Continue triple therapy and consider consultation for EGD if bleeding continues. (5) Esophagitis: Start date: 09/22/24 Status: Acute Assessment and plan: Triple therapy as above. (6) Diffuse large B-cell lymphoma: Status: Chronic Assessment and plan: Continue to follow-up with oncology once patient is discharged home with monitoring for complications of chemotherapy. Qualifiers: Lymphoma site: neck Qualified Code(s): C83.31 - Diffuse large B-cell lymphoma, lymph nodes of head, face, and neck (7) Depressive disorder: Status: Chronic Assessment and plan: Continue outpatient medical therapy. (8) Seizure, temporal lobe: Assessment and plan: Continue outpatient medical therapy. History of Present Illness History of Present Illness Chief Complaint: Fever with recent therapy for lymphoma. Narrative: This is a 48-year-old male patient with diagnosed with large B-cell lymphoma of the neck 6 months ago and has been through 3 chemotherapy treatments with most recent one ending about a week ago. He presents with fever of acute onset with no source of infection despite being on prophylactic oral acyclovir 4 mg twice daily with oral antibiotics including levofloxacin 5 mg daily and Bactrim DS every Friday and Friday. The patient was hospitalized early last month with a similar episode. ED evaluation reveals a possible esophagitis and gastritis with patient saying that he had had some bloody stools intermittently. He is not anemic. He does have a bad taste in his mouth but no other complaints other than mild headache while in the ED. He has had no diarrhea. Has had no cough. He denies any significant weight loss with his acute disease process but is disabled from his usual job at the local [employer] with his acute lymphoma. Patient has had slight decreased appetite. He was initiated on broad-spectrum IV antibiotic therapy and IV acyclovir in the ED this will be continued pending blood culture results. Oncology was consulted at [facility]. Patient is a full code. Review of Systems Narrative: 13 point review of systems otherwise unrevealing or stable. Patient is overweight chronically and has had no edema. PFSH All Active Problems (Updated 09/22/24 @ 06:42 by Shadi Oliveros) Acute dehydration (Acute) Diffuse large B-cell lymphoma (Chronic) Sepsis (Acute) Acute GI bleeding (Acute) Esophagitis (Acute) Fever and neutropenia (Acute) Lymphoma (Acute) Depressive disorder (Chronic) Hand paresthesia (Acute) Wax in ear (Acute) Fatigue (Acute) Memory loss (Acute) Partial epilepsy (Acute) New onset headache (Acute) Medical History (Updated 09/22/24 @ 06:42 by Shadi Oliveros) Seizure, temporal lobe Lazy eye Surgical History History of cranial surgery L temporal lobectomy for seizures H/O vasectomy History of back surgery x3 at [facility]; last in 2003? Family History Father Diabetes Mother Alzheimer disease Sister Diabetes Social History Smoking/Tobacco Use Status: Never Smoking risk assessment performed?: Yes Alcohol Intake: never Details: OCCASTIONAL Substance use type: marijuana Details: CBD pen Household members: significant other Housing: apartment Number of Children: 3 current occupation: [employer] in [employer] What is your relationship status?: Panel score (0-1 are the most socially isolated patients): 0 What type of physical activity do you participate in: walking Seatbelt use: always Do you feel safe at home: Yes Do you feel safe in your relationship?: Yes Meds Allergies and Home Medications Allergies Allergy/AdvReac Type Severity Reaction Status Date / Time No Known Allergies Allergy Verified 09/21/24 22:48 Home Medications ?Medication ?Instructions ?Recorded ?Confirmed ?Type acyclovir 400 mg tablet 400 mg PO BID 08/11/24 09/21/24 History allopurinol 300 mg tablet 300 mg PO DAILY 08/11/24 09/21/24 History ibuprofen 200 mg capsule 400 mg PO TID-QID PRN 08/11/24 09/21/24 History loratadine 10 mg tablet (Claritin) 10 mg PO DAILY 08/11/24 09/21/24 History omeprazole 20 mg capsule,delayed 20 mg PO DAILY 08/11/24 09/21/24 History release ondansetron 8 mg disintegrating 8 mg PO BID 08/11/24 09/21/24 History tablet prednisone 50 mg tablet 100 mg PO DAILY 08/11/24 09/21/24 History prochlorperazine maleate 10 mg 10 mg PO TID 08/11/24 09/21/24 History tablet (Compazine) sennosides 8.6 mg tablet (senna) 8.6 mg PO QD-BID PRN 08/11/24 09/21/24 History Vimpat 200 mg tablet (lacosamide) 100 mg (1/2 x 200 mg) PO BID #90 09/06/24 09/21/24 Rx tabs lamotrigine 200 mg tablet 200 mg PO BID #180 tabs 09/13/24 09/21/24 Rx Exam Narrative Exam Narrative: General: Patient appears appropriate for age, he has alopecia from his chemotherapy, he is in moderate distress from his discomfort from his fever but complains of a bad taste in his mouth. He is moderately obese. Alert and oriented x 3. HEENT: Normocephalic, eyes with pupils equal and react to light symmetrically, extraocular movement intact and sclera anicteric. Oropharynx with dry mucosa. Fair dentition. Neck: Supple without meningismus and without JVD. Back: Stooped posture without CVA tenderness. Lungs: Aeration clear to auscultation percussion with no focalizing rales or rhonchi. No expiratory wheeze. Heart: His heart sounds with regular rate and rhythm and no appreciable murmur or gallop. Bandaged PICC line over left upper chest. Abdomen: Obese contour, soft and nontender to palpation no palpable hepatosplenomegaly. No guarding or rebound. Bowel sounds positive in all quadrants. Genitalia/rectal: Exam deferred. Extremities: Without clubbing, cyanosis or pitting edema. Peripheral pulses intact. Skin: Normal color, hot and dry. Neuro: Cranial nerves II through XII gross intact, no focalizing motor deficits. No tremor. Psych: Flattened affect with poor eye contact, slow monotonous tone. Patient appears depressed. No abnormal thought processes. Remote and recent memory grossly intact. Results Imaging Imaging Studies: Exam: CT Chest With Contrast; Diagnostic Exam date and time: 09/22/2024 12:02 AM Age: 48 years old Clinical indication: Fever and other: Bloody diarrhea; Patient HX: Neutropenic fever, bloody diarrhea. Primary cancer: Lymph COMPARISON: CR XR PORTABLE CHEST AP 08/11/2024 9:25 PM FINDINGS: Tubes, catheters and devices: Left chest port seen with distal tip in the SVC. Lungs: Linear bibasilar opacities most consistent with subsegmental atelectasis. Pleural spaces: Unremarkable. No pneumothorax. No pleural effusion. Heart: Unremarkable. No cardiomegaly. No pericardial effusion. Esophagus: Thickening of the visualized distal esophagus. Lymph nodes: Unremarkable. No enlarged lymph nodes. Vasculature: Unremarkable. No aortic aneurysm. Diaphragm: A small hiatal hernia is present. Bones/joints: No acute osseous abnormality. Soft tissues: Soft tissues are unremarkable as visualized. Other findings: No lesions. No enlargement. IMPRESSION: Thickening of the visualized distal esophagus. Correlate for esophagitis though esophageal mass lesions are not well excluded on CT. PROCEDURE INFORMATION: Exam: CT Abdomen And Pelvis With Contrast Exam date and time: 09/22/2024 12:02 AM Age: 48 years old Clinical indication: Fever and other: Bloody diarrhea; Patient HX: Neutropenic fever, bloody diarrhea. Primary cancer: Lymph COMPARISON: CT ABDOMEN PELVIS W 08/11/2024 10:33 PM FINDINGS: Lungs: Clear Liver: The liver is unremarkable. Gallbladder and biliary ducts: No gallstones. Nondistended. No wall thickening. Pancreas: The pancreas is unremarkable. Spleen: Splenomegaly Adrenal glands: The adrenal glands are unremarkable. Kidneys and ureters: Bilateral renal cysts are present, as well as other subcentimeter hypodensities which are too small to characterize. Stomach and bowel: Unremarkable. No obstruction. No mucosal thickening. Appendix: Normal appendix. Intraperitoneal space: Unremarkable. No free air. No significant fluid collection. Vasculature: Unremarkable. No abdominal aortic aneurysm. Lymph nodes: No adenopathy. No edema. Urinary bladder: The urinary bladder is distended. Reproductive: Unremarkable as visualized. Bones/joints: L5/S1 disc space narrowing with posterior disc bulge. Soft tissues: Small fat containing inguinal hernias. Other findings: No evidence of stenosis, occlusion, dissection or aneurysm. IMPRESSION: No acute abdominal or pelvic process Labs 09/21/24 22:45 09/21/24 22:45 Labs: Laboratory Results - last 24 hr 09/21/24 09/21/24 09/21/24 22:45 22:55 23:05 WBC 0.89 L* RBC 3.40 L Hgb 10.7 L Hct 32.1 L MCV 94 MCH 31.5 MCHC 33.3 RDW 16.1 H Plt Count 147 MPV 9.6 Immature Gran % 0.0 Neutrophils % 70.0 Band Neutrophils % 6 Lymphocytes % 20.0 Monocytes % 2.0 Eosinophils % 0.0 Basophils % 0.0 Metamyelocytes % 2 Nucleated RBC % 0.0 Absolute Neutrophils 0.68 L Absolute Lymphocytes 0.18 L Absolute Monocytes 0.02 L Absolute Eosinophils 0.00 Absolute Basophils 0.00 RBC Morphology See Below Anisocytosis 1+ PT 11.0 INR 1.1 APTT 23.2 L VBG Lactate 2.8 H* Sodium 139 Potassium 3.9 Chloride 102 Carbon Dioxide 28.0 Anion Gap 9.0 BUN 18 Creatinine 1.5 H Est GFR (CKD-EPI 2020) 56.37 Glucose 117 H Calcium 8.7 Total Bilirubin 0.78 AST 18 ALT 21 Alkaline Phosphatase 77 Total Protein 6.5 Albumin 3.4 Procalcitonin 0.5 Urine Color Yellow Urine Clarity Clear Urine pH 6.0 Ur Specific [place] >= 1.030 H Urine Protein Negative Urine Ketones Trace H Urine Blood Negative Urine Nitrite Negative Urine Bilirubin Negative Urine Urobilinogen 0.2 Ur Leukocyte Esterase Negative Urine Glucose Negative COVID-19 Source Nasopharynx SARS-CoV-2 (PCR) Negative Influenza Type A (PCR) Negative Influenza Type B (PCR) Negative RSV (PCR) Negative 09/22/24 02:31 WBC RBC Hgb Hct MCV MCH MCHC RDW Plt Count MPV Immature Gran % Neutrophils % Band Neutrophils % Lymphocytes % Monocytes % Eosinophils % Basophils % Metamyelocytes % Nucleated RBC % Absolute Neutrophils Absolute Lymphocytes Absolute Monocytes Absolute Eosinophils Absolute Basophils RBC Morphology Anisocytosis PT INR APTT VBG Lactate 1.6 H Sodium Potassium Chloride Carbon Dioxide Anion Gap BUN Creatinine Est GFR (CKD-EPI 2020) Glucose Calcium Total Bilirubin AST ALT Alkaline Phosphatase Total Protein Albumin Procalcitonin Urine Color Urine Clarity Urine pH Ur Specific [place] Urine Protein Urine Ketones Urine Blood Urine Nitrite Urine Bilirubin Urine Urobilinogen Ur Leukocyte Esterase Urine Glucose COVID-19 Source SARS-CoV-2 (PCR) Influenza Type A (PCR) Influenza Type B (PCR) RSV (PCR) Last Vital Signs Temp 37.3 C 09/22/24 04:44 Pulse 97 H 09/22/24 04:44 Resp 16 09/22/24 04:44 BP 105/68 09/22/24 04:44 Pulse Ox 97 09/22/24 04:44 Time Spent Time spent with Patient: >75 minutes Time was spent: preparing to see the patient(eg.review tests), obtaining and/or reviewing separately otained hiistory, referring, communicating with other health hearing healthcare practitioner, indepentently interpreting results and care coordination
[2024-09-22] MEDS: Normal Saline Flush 10 ML SYR IVP ×2 (06:03→08:30)
[2024-09-22] MEDS: predniSONE 20 MG TAB 100 MG PO (08:30)
[2024-09-22] MEDS: Allopurinol 300 MG TAB PO (08:31)
[2024-09-22] MEDS: Loratidine 10 MG TAB PO (08:32)
[2024-09-22] MEDS: lamoTRIgine 100 MG TAB 200 MG PO ×2 (08:32→21:13)
[2024-09-22] MEDS: Senna TAB 1 TAB PO ×2 (08:32→21:13)
[2024-09-22] MEDS: Ondansetron O.D.T. 4 MG TABEF 8 MG PO (08:33)
[2024-09-22] MEDS: Prochlorperazine 10 MG TAB PO (08:34)
[2024-09-22] MEDS: Lacosamide 100 MG TAB PO (08:34)
[2024-09-22 08:56] LABS: HCT 26.9 % (40.0-50.0); HGB 9.1 g/dL (13.5-17.5); MCH 31.6 pg (27.0-33.0); MCHC 33.8 % (32.0-36.0); MCV 93 fL (80-95); MPV 9.3 fL (8.0-11.0); Platelet Count 111 10^3/uL (130-400); RBC 2.88 10^6/uL (4.36-5.78); RDW 15.9 % (11.8-14.1); RDW-SD 53.7 fL
--- NOTE | 2024-09-22 08:57 | INITIAL_ITS ---
Date of service: 09/22/24 Time of Service: 08:57 Care Management Initial Assmt Initial Assessment Reason for Hospitalization: neutropenic fever Functional Status/Living Situation Patient Presentation: Brett was lying in bed asleep when CM met with him. He woke up to a gentle calling of his name and light shoulder touch. Brett seemed quite sleepy during the meeting and closed his eyes on and off. He was able to answer questions and informed CM that he lives alone in a mobile home in [place]. He has 3 children and 8 grandchildren. He has been working at the [employer] but has been out on [employer] for about the past month. He does not receive any services and does not need a cane or walker fore ambulatory assistance. Town of Residence: [place] Resides with: Alone Significant Other/Family: Local Natural Supports: family Employment Status: Employed Instrumental Activities of Daily Living (ADLs): Independent Medications Medication Management: No Issues/Barriers identified Physical Functioning/Mobility Assistive Device: none Advance Directives Advance Directives: Do you have an Advance Directive: N 08/12/24 15:23 AD On File at [facility]: N 08/03/24 11:57 Date Asked 09/22/24 09/22/24 12:16 AD Date Reviewed COLST On File at [facility] No 08/12/24 15:23 COLST Date Scanned Code Status Resuscitation Status Full Code Portal Pt does not currently have a portal and education provided: Yes Insurance Coverage/Financial Issues Insurance: /[facility] Care Team Visit Care Team Role Provider Type Cholo Whitfield Primary Care Provider NON-[facility] STAFF PHYSICIAN Luigi Hagan DO Emergency Provider [facility] STAFF PHYSICIAN Shadi Oliveros Admit Provider NON-[facility] STAFF PHYSICIAN Attending Provider Discharge Potential Discharge Needs: PCP F/U Appt Anticipated Barriers to Discharge: None Identified Patient/Family Education Needs: Review discharge instructions, discuss Ask Me Three Transportation: Private vehicle Plan: Anticipate Brett will be discharged home with no new services when medically cleared. He will follow up with his PCP and plan of care and transport with a friend. CM will follow and continue to support discharge plans. PFSH All Active Problems (Updated 09/22/24 @ 06:42 by Shadi Oliveros) Acute dehydration (Acute) Diffuse large B-cell lymphoma (Chronic) Sepsis (Acute) Acute GI bleeding (Acute) Esophagitis (Acute) Fever and neutropenia (Acute) Lymphoma (Acute) Depressive disorder (Chronic) Hand paresthesia (Acute) Wax in ear (Acute) Fatigue (Acute) Memory loss (Acute) Partial epilepsy (Acute) New onset headache (Acute) Medical History (Updated 09/22/24 @ 06:42 by Shadi Oliveros) Seizure, temporal lobe Lazy eye Surgical History History of cranial surgery L temporal lobectomy for seizures H/O vasectomy History of back surgery x3 at [facility]; last in 2003? Family History Father Diabetes Mother Alzheimer disease Sister Diabetes Social History Smoking/Tobacco Use Status: Never Smoking risk assessment performed?: Yes Alcohol Intake: never Details: OCCASTIONAL Substance use type: marijuana Details: CBD pen Household members: significant other Housing: apartment Number of Children: 3 current occupation: [employer] in [employer] What is your relationship status?: Panel score (0-1 are the most socially isolated patients): 0 What type of physical activity do you participate in: walking Seatbelt use: always Do you feel safe at home: Yes Do you feel safe in your relationship?: Yes SDOH(Care Management) Screening Will the Patient Participate in the Screening?: Yes Do you worry about having a steady place to live?: no Problems where you live: no known problems In the past 12 months, have you had to go without electric, gas, oil or water in your home?: no Have you or anyone in your house had to go without enough food to eat?: no Has lack of transportation kept you from medical appointments or from doing things needed for daily living?: no Has anyone in your support network made you feel unsafe for any reason?: no
[2024-09-22 09:44] LABS: WBC 0.37 10^3/uL (4.4-10.8)
--- NOTE | 2024-09-22 09:48 | PGE_ITS ---
Date of Service Date of service: 09/22/24 Time of Service: 09:49 Assessment and Plan Assessment and plan (1) Severe sepsis: Status: Acute Assessment and plan: Sepsis criteria met on arrival: Blood rate over 90, WBC less than 4, respiratory rate over 22. Source: Unknown, neutropenia on status post chemotherapy patient/immunocompromised Severe sepsis criteria: Blood pressure as low as 71/34 in the ED responding to IV resuscitation with BP 106/55 Treated with broad-spectrum antibiotics; ongoing Was on oral Acyclovir at home now on IV antiviral Headache without meningismus most likely with fevers?resolving with acetaminophen?will continue to monitor - Consider expanded investigations such as lumbar puncture if headache worsens Continue to maintain blood pressures systolic 100mmHg: PRN crystalloid bolus- AND ICU on norepinephrine if not responding to treatment F/U CBC w diff (2) Fever and neutropenia: Start date: 09/22/24 Status: Acute Assessment and plan: This is a 48-year-old gentleman with acute onset of fever at home 6 days after last chemotherapy. ANC 0.68 w WBC 0.89 intially f/u WBC 0.37 then 0.41- no diff available -diff ordered on last CBC- ANC 0.31 CBC with Diff Q 6 Maintain neutropenic precautions Neulasta given on 09/16 at the [facility] - most likely delayed onset Continue broad-spectrum IV antibiotic therapy and antiviral therapy Blood cultures pending Remains negative for meningismus- TELLEZ with fever at 39.0 this AM - Both resolving with APAP Ongoing acute gastritis/esophagitis treatment with PPI d/t reported bloody stools PRN consultation with [facility] [place] [place] oncology -Medicine include Acyclovir 400 mg twice daily, Bactrim DS on Friday for Jirovecii pneumonia prophylaxis, no longer on prednisone ( days 2-5) and no longer on allopurinol (3) Sepsis: Start date: 09/22/24 Status: Acute Assessment and plan: As in Point 1 Qualifiers: Sepsis acute organ dysfunction status: without acute organ dysfunction Sepsis type: sepsis due to unspecified organism Qualified Code(s): A41.9 - Sepsis, unspecified organism (4) Acute dehydration: Start date: 09/22/24 Status: Acute Assessment and plan: Patient received 2 L of IV fluid in the ED and will continue IV normal saline monitoring blood pressure closely. Cr up to 1.5 from baseline 1.1 Continue IVF (5) Acute GI bleeding: Start date: 09/22/24 Status: Acute Assessment and plan: Patient is not significantly anemic though his hemoglobin did drop 2 g/dL with recent labs over the last couple weeks and he has normal platelet count but he does have leukopenia. Continue triple therapy Consider consultation for EGD if bleeding continues H&H stable No acute bleeding (6) Esophagitis: Start date: 09/22/24 Status: Acute Assessment and plan: Triple therapy with PPI, H2, and sucralfate as above. (7) Diffuse large B-cell lymphoma: Status: Chronic Assessment and plan: Consider oncologgy consult if deteriorating Continue to follow-up with oncology at discharge home with monitoring for complications of chemotherapy. Qualifiers: Lymphoma site: neck Qualified Code(s): C83.31 - Diffuse large B-cell lymphoma, lymph nodes of head, face, and neck (8) Depressive disorder: Status: Chronic Assessment and plan: On outpatient medical therapy. (9) Seizure, temporal lobe: Assessment and plan: Reported that generic of Lacosamide causes seizures in patient. Family to get home meds for pharmacy to approve Give patient his own Vimpat once available On outpatient anti-epileptic pharmacological therapy. Discussed with Dr Bray Subjective Subjective Patient reports: feels better, still having pain, tolerating liquids well, voiding w/o difficulty, no bowel movement and fever; denies diarrhea, blood in stool, nausea, vomiting or shortness of breath Exam Narrative Exam Narrative: Constitutional The patient is without acute distress HENMT: Facial structures with normal appearance Eyes: Well aligned Neck: Normal ROM, no meningeal signs Neuro:alert and oriented to self, person, place, time and situation. No neurological focal deficit Chest:Chest is symmetrical and normal appearance, port to left chest wall Resp: Normal respiratory pattern, speaks in full sentences, unlabored breathing, clear lung bilaterally Cardio: regular rhythm, S1, S2, no murmur GI: Abdomen is not distended, soft and non tender, bowel sounds are present : Negative Costovertebral angle tenderness Back/spine/Pelvis: No back tenderness, normal alignment Integumentary: No skin lesions or rash, no report of opened wound Extremities: strength 5/5 to bilateral lower and upper extremities Psych: RASS 0, congruent mood and normal affect. Objective Last Vital Signs Temp 39.0 C H 09/22/24 07:33 Pulse 105 H 09/22/24 07:33 Resp 16 09/22/24 07:33 BP 118/56 L 09/22/24 07:33 Pulse Ox 94 09/22/24 07:33 Laboratory Results - last 24 hr 09/21/24 09/21/24 09/21/24 22:45 22:55 23:05 WBC 0.89 L* RBC 3.40 L Hgb 10.7 L Hct 32.1 L MCV 94 MCH 31.5 MCHC 33.3 RDW 16.1 H Plt Count 147 MPV 9.6 Immature Gran % 0.0 Neutrophils % 70.0 Band Neutrophils % 6 Lymphocytes % 20.0 Monocytes % 2.0 Eosinophils % 0.0 Basophils % 0.0 Metamyelocytes % 2 Nucleated RBC % 0.0 Absolute Neutrophils 0.68 L Absolute Lymphocytes 0.18 L Absolute Monocytes 0.02 L Absolute Eosinophils 0.00 Absolute Basophils 0.00 RBC Morphology See Below Anisocytosis 1+ PT 11.0 INR 1.1 APTT 23.2 L VBG Lactate 2.8 H* Sodium 139 Potassium 3.9 Chloride 102 Carbon Dioxide 28.0 Anion Gap 9.0 BUN 18 Creatinine 1.5 H Est GFR (CKD-EPI 2020) 56.37 Glucose 117 H Calcium 8.7 Total Bilirubin 0.78 AST 18 ALT 21 Alkaline Phosphatase 77 Total Protein 6.5 Albumin 3.4 Procalcitonin 0.5 Urine Color Yellow Urine Clarity Clear Urine pH 6.0 Ur Specific [place] >= 1.030 H Urine Protein Negative Urine Ketones Trace H Urine Blood Negative Urine Nitrite Negative Urine Bilirubin Negative Urine Urobilinogen 0.2 Ur Leukocyte Esterase Negative Urine Glucose Negative COVID-19 Source Nasopharynx SARS-CoV-2 (PCR) Negative Influenza Type A (PCR) Negative Influenza Type B (PCR) Negative RSV (PCR) Negative 09/22/24 09/22/24 02:31 08:30 WBC 0.37 L* RBC 2.88 L Hgb 9.1 L Hct 26.9 L MCV 93 MCH 31.6 MCHC 33.8 RDW 15.9 H Plt Count 111 L MPV 9.3 Immature Gran % Neutrophils % Band Neutrophils % Lymphocytes % Monocytes % Eosinophils % Basophils % Metamyelocytes % Nucleated RBC % Absolute Neutrophils Absolute Lymphocytes Absolute Monocytes Absolute Eosinophils Absolute Basophils RBC Morphology Anisocytosis PT INR APTT VBG Lactate 1.6 H Sodium Potassium Chloride Carbon Dioxide Anion Gap BUN Creatinine Est GFR (CKD-EPI 2020) Glucose Calcium Total Bilirubin AST ALT Alkaline Phosphatase Total Protein Albumin Procalcitonin Urine Color Urine Clarity Urine pH Ur Specific [place] Urine Protein Urine Ketones Urine Blood Urine Nitrite Urine Bilirubin Urine Urobilinogen Ur Leukocyte Esterase Urine Glucose COVID-19 Source SARS-CoV-2 (PCR) Influenza Type A (PCR) Influenza Type B (PCR) RSV (PCR) Time Spent with Patient Time Spent with Patient: >50 minutes Time was spent: preparing to see the patient(eg.review tests), obtaining and/or reviewing separately otained hiistory, ordering medications,tests, procedures, referring, communicating with other health healthcare insurance sales agent, indepentently interpreting results, counseling the patient and care coordination
[2024-09-22] MEDS: DOXYCYCLINE 100 MG in Normal Saline 100 ML IVPB ×2 (10:00→22:55)
[2024-09-22] MEDS: Heparin 5,000 UNITS/ML VIAL 5000 UNITS SC ×2 (10:05→17:17)
[2024-09-22] MEDS: PIPERACILLIN/TAZO 3.375 GM in Normal Saline 50 ML IVPB ×3 (10:05→21:12)
[2024-09-22 12:18] LABS: Vancomycin, Random 2.2 ug/mL
[2024-09-22] MEDS: Acetaminophen 325 MG TAB PO ×2 (12:22→23:54)
[2024-09-22 12:55] LABS: HCT 29.6 % (40.0-50.0); HGB 10.1 g/dL (13.5-17.5); MCH 31.8 pg (27.0-33.0); MCHC 34.1 % (32.0-36.0); MCV 93 fL (80-95); Platelet Count 137 10^3/uL (130-400); RBC 3.18 10^6/uL (4.36-5.78); RDW 15.8 % (11.8-14.1); RDW-SD 53.6 fL
[2024-09-22 12:58] LABS: WBC 0.41 10^3/uL (4.4-10.8)
[2024-09-22] MEDS: Normal Saline 1,000 ML 75 ML IV (13:38)
[2024-09-22] MEDS: VANCOMYCIN/WATER (PEG) 750 MG/150 ML BAG 150 MG IVPB (13:38)
--- NOTE | 2024-09-22 13:40 | PHA.REVIEW2 ---
Pharmacy Admission Review Admission Clinical Review Admission Pharmacy Review: Acute dehydration (Acute) Sepsis (Acute) Acute GI bleeding (Acute) Esophagitis (Acute) Fever and neutropenia (Acute) No Known Allergies Allergy (Verified 09/21/24 22:48) Resuscitation Status Full Code Height 5 ft 7 in Weight 94.801 kg Pharmacy Admission Review Renal Dosing Renal Dosing: BUN 18 mg/dL (7-18) 09/21/24 22:45 Creatinine 1.5 mg/dL (0.70-1.30) H 09/21/24 22:45 Medications needing adjustments: Reviewed (CrCl 63.44 mL/min) List of meds needing interventions: Current medications are okay Anticoagulation Anticoagulation: Hgb 10.1 g/dL (13.5-17.5) L 09/22/24 12:38 Hct 29.6 % (40.0-50.0) L 09/22/24 12:38 Plt Count 137 10^3/uL (130-400) 09/22/24 12:38 INR 1.1 (0.9-1.1) 09/21/24 22:45 Creatinine 1.5 mg/dL (0.70-1.30) H 09/21/24 22:45 DVT Prophylaxis: Reviewed (Hgb increased from 9.1 - repeat labs pending) Medications: Heparin (q8h) Relevant Labs Relevant Labs: Sodium 139 mmol/L (136-145) 09/21/24 22:45 Potassium 3.9 mmol/L (3.5-5.1) 09/21/24 22:45 Chloride 102 mmol/L (98-107) 09/21/24 22:45 Electrolytes, C-Reactive P, ESR: Reviewed Cardiac Review Cardiac Review: BP, HR, EF%: Reviewed (BP WNL, HR 91 - has been in the high 90's to 110's for most of today) QTc Review QTc: Reviewed (No EKG on file) IV to PO Switch IV Medications: Reviewed (acyclovir, doxycycline, famotidine, ondansetron, pantoprazole, Zosyn and vancomycin) Home Meds Home Med List reviewed: Intervened Relevent Home Meds Not ordered & why?: ibuprofen (PRN) and omeprazole (has order for IV pantoprazole) Updated ondansetron and prochlorperazine on home med list from [facility] to PRN based on prescriptions. Spoke with provider who asked that the orders be changed to PRN which I did. Current Meds Current Medication Order Review: Reviewed Pharmacy Antibiotic Review Relevant Labs: Relevant Labs 09/21/24 22:45 Procalcitonin 0.5 WBC 0.41 10^3/uL (4.4-10.8) L* 09/22/24 12:38 Procalcitonin 0.5 ng/mL 09/21/24 22:45 Temperature 36.8 C 1213 Temperature 39.0 C 0733 Temperature 37.3 C 0444 Temperature 37.2 C 0344 Temperature 39.7 C 0205 Pharmacy Antibiotic Activity: Abx regimen adjustment (changed acyclovir dose to 750mg q8h based on 10mg/kg/dose regimen using adjusted body weight of 76.129), C/S review and Reviewed, no change Comments: Patient currently on day 1 of Zosyn, doxycycline, vancomycin and acyclovir. Provider is aware of multiple ABX orders and is currently looking into it. Vancomycin currently ordered at 750mg q12h with predicted AUC of 428 and trough of 17. Level came back today very low at 2.2 from 1142, kept dose the same and reordered level for tonight at 2000. Will adjust dose as needed. WBC slightly increased from 0.37 and ANC 0.68 - repeat labs pending. Blood cultures pending.
[2024-09-22 15:26] LABS: Abs Immature Grans 0.02 10^3/uL (0.0-0.06); Absolute Basophil Count 0.01 10^3/uL (0.0-0.2); Absolute Lymphocyte Count 0.04 10^3/uL (1.2-3.4); Absolute Monocyte Count 0.03 10^3/uL (0.1-0.8); Basophils % 2.4 %; Immature Grans % 4.9 %; Lymphocytes % 9.8 %; Monocytes % 7.3 %; Neutrophils % 75.6 %
[2024-09-22] MEDS: Lactated Ringers 1,000 ML 1000 ML IV (15:43)
[2024-09-22 15:51] LABS: Diff Comment Agrees w/ Instrument
[2024-09-22 15:53] LABS: Absolute Neutrophil Count 0.31 10^3/uL (1.2-6.7)
[2024-09-22 18:14] LABS: Abs Immature Grans 0.02 10^3/uL (0.0-0.06); Absolute Basophil Count 0.01 10^3/uL (0.0-0.2); Absolute Lymphocyte Count 0.07 10^3/uL (1.2-3.4); Absolute Monocyte Count 0.04 10^3/uL (0.1-0.8); Basophils % 2.9 %; HCT 26.2 % (40.0-50.0); Immature Grans % 5.9 %; Lymphocytes % 20.6 %; MCH 31.7 pg (27.0-33.0); MCHC 34.4 % (32.0-36.0); MCV 92 fL (80-95); MPV 9.5 fL (8.0-11.0); Monocytes % 11.8 %; Neutrophils % 58.8 %; Platelet Count 119 10^3/uL (130-400); RBC 2.84 10^6/uL (4.36-5.78); RDW 15.6 % (11.8-14.1); RDW-SD 52.1 fL
[2024-09-22 18:23] LABS: Diff Comment Agrees w/ Instrument; RBC Morphology Normal
[2024-09-22 18:25] LABS: WBC 0.34 10^3/uL (4.4-10.8)
[2024-09-22 21:10] LABS: Vancomycin, Random 3.9 ug/mL
[2024-09-23 00:11] LABS: CREATININE 0.8 mg/dL (0.70-1.30); Estimated GFR 107.82 (mL/min/1.73m2)
[2024-09-23] MEDS: VANCOMYCIN/WATER (PEG) 750 MG/150 ML BAG 150 MG IVPB (00:20)
[2024-09-23] MEDS: PIPERACILLIN/TAZO 3.375 GM in Normal Saline 50 ML IVPB ×4 (01:58→20:06)
[2024-09-23] MEDS: VANCOMYCIN/WATER (PEG) 1.25 GM/250 ML BAG IV (02:36)
[2024-09-23 02:40] VITALS: BP 107/67; PULSE 82; RESP 14; TEMP 36.4; O2SAT 96
[2024-09-23 06:56] LABS: ALT 18 U/L (16-63); AST 10 U/L (15-37); Albumin 2.9 g/dL (3.4-5.0); Alkaline Phosphatase 54 U/L (46-116); BUN 10 mg/dL (7-18); Bilirubin, Total 0.74 mg/dL (0.2-1.0); CREATININE 0.9 mg/dL (0.70-1.30); Calcium 8.6 mg/dL (8.5-10.1); Chloride 108 mmol/L (98-107); Estimated GFR 104.05 (mL/min/1.73m2); Glucose 115 mg/dL (74-106); Potassium 3.6 mmol/L (3.5-5.1); Sodium 144 mmol/L (136-145); Total Protein 5.8 g/dL (6.4-8.2)
[2024-09-23 07:16] VITALS: BP 115/74; PULSE 81; RESP 15; TEMP 36.9; O2SAT 98
[2024-09-23] MEDS: Sucralfate 1 GM TAB PO ×4 (09:17→22:09)
[2024-09-23] MEDS: Senna TAB 1 TAB PO ×2 (09:17→20:07)
[2024-09-23] MEDS: Heparin 5,000 UNITS/ML VIAL 5000 UNITS SC (09:17)
[2024-09-23] MEDS: lamoTRIgine 100 MG TAB 200 MG PO ×2 (09:17→20:05)
[2024-09-23] MEDS: Normal Saline Flush 10 ML SYR IVP (09:18)
--- NOTE | 2024-09-23 09:39 | PGE_ITS ---
Date of Service Date of service: 09/23/24 Time of Service: 09:39 Assessment and Plan Assessment and plan (1) Severe sepsis: Status: Acute Assessment and plan: On admission to the ED 1-Sepsis criteria met : Blood rate over 90, WBC less than 4, respiratory rate over 22. Source: Unknown, neutropenia on status post chemotherapy patient/immuno- compromised 2-Severe sepsis criteria: Blood pressure as low as 71/34 in the ED responding to IV resuscitation with BP 106/55 On 09/22 again had an episode of hypotension responding to IVF Normotensive today Continue to treated with broad-spectrum antibiotics Was on oral Acyclovir at home: continue on IV antiviral Was on PJP prophylaxis at home:Bactrim DS- MWF- adverse effect- leukopenia- no S&S of PJP- in agreement with hematology will resume at discharge w F/u w oncologist Blood culture negative at 24 hours Afebrile X 24 hours On 09/22 again had a headache without meningismus most likely with fevers?resolving with acetaminophen?will continue to monitor - Consider expanded investigations such as lumbar puncture if headache worsens - No further report of TELLEZ Continue to maintain blood pressures systolic 100mmHg: PRN crystalloid bolus F/U CBC w diff (2) Fever and neutropenia: Start date: 09/22/24 Status: Acute Assessment and plan: This is a 48-year-old gentleman with acute onset of fever at home 6 days after last chemotherapy for B- cell lymphoma . ANC 0.68 w WBC 0.89 intially f/u WBC 0.34 w - ANC 0.20 on 09/22 HS As per Hematology Dr Rubi: Maintain course as pt is clinically improving - WBC now 0.46 despite ANC at 0.08 today -A-febrile and negative blood X24 hours -Eosinophils at 2.0 from 0- pointing to increase production of granulocyte lines Maintain neutropenic precautions Neulasta given on 09/16 at the [facility] - most likely delayed onset Continue broad-spectrum IV antibiotic therapy while stopping Doxycycline and antiviral therapy Blood cultures pending Remains negative for meningismus- TELLEZ Ongoing acute gastritis/esophagitis treatment with PPI d/t reported bloody stools hx PRN consultation with [facility]ology -Medicine include Acyclovir 400 mg twice daily, Bactrim DS on Friday for Jirovecii pneumonia prophylaxis ( can cause leukopenia) , no longer on prednisone ( days 2-5) and no longer on allopurinol [facility] ID consult : Can resume Bactrim, no need for levaquin ( was on opt levaquin as per family but not on med list) inpatient- Wait for 48-72 hours of no growth in Cx (3) Sepsis: Start date: 09/22/24 Status: Acute Assessment and plan: As in Point 1 Qualifiers: Sepsis acute organ dysfunction status: without acute organ dysfunction Sepsis type: sepsis due to unspecified organism Qualified Code(s): A41.9 - Sepsis, unspecified organism (4) Acute dehydration: Start date: 09/22/24 Status: Acute Assessment and plan: Patient received 2 L of IV fluid in the ED and 1 l of LR on - will continue IV normal saline monitoring blood pressure closely. Cr up to 1.5 from baseline 1.1- now 0.9 Considering stopping IVF Continue IVF for now (5) Acute GI bleeding: Start date: 09/22/24 Status: Acute Assessment and plan: Stable anemia with leukopenia without thrombocytopenia - though his hemoglobin did drop 2 g/dL with recent labs over the last couple weeks On triple therapy H&H stable-consider consultation for EGD for significant bleeding Trace of right blood after stool- patient stated ongoing Discontinue SC heparin for DVT prophylaxis (6) Esophagitis: Start date: 09/22/24 Status: Acute Assessment and plan: On Triple therapy with PPI, pepcid , and sucralfate and as above. (7) Diffuse large B-cell lymphoma: Status: Chronic Assessment and plan: Hematology consult completed with Dr. Rubi see point 2 Continue to follow-up with oncology at discharge home with monitoring for complications of chemotherapy 09/22: Med regimen reviewed with oncology Qualifiers: Lymphoma site: neck Qualified Code(s): C83.31 - Diffuse large B-cell lymphoma, lymph nodes of head, face, and neck (8) Depressive disorder: Status: Chronic Assessment and plan: continue home medical therapy. (9) Seizure, temporal lobe: Assessment and plan: On home Vimpat as per report that generic of Lacosamide causes seizures in patient. Give patient his own Vimpat once available continue outpatient anti-epileptic pharmacological therapy. (10) On deep vein thrombosis (DVT) prophylaxis: Status: Acute Assessment and plan: Initially on SC heparin Now on BIRDIE's (11) Discharge planning issues: Status: Acute Assessment and plan: As per Hematology Dr Rubi: Discharge 24- 48 hours if still improving and no source- no fever As per ID 48-72 hours of no growth on cultures Discussed with Dr Ansari Subjective Subjective Patient reports: no new complaints, feels better (Wants to go home ), tolerating liquids well, tolerating a regular diet, voiding w/o difficulty and blood in stool (reported ongoing); denies diarrhea, nausea, vomiting, shortness of breath or fever Exam Narrative Exam Narrative: Constitutional The patient is without acute distress HENMT: Facial structures with normal appearance Eyes: Well aligned Neck: Normal ROM, no meningeal signs Neuro:alert and oriented X 4. No neurological focal deficit Chest:Chest is symmetrical and normal appearance,accessed port to left chest wall Resp: Unlabored breathing, clear lung bilaterally Cardio: regular rhythm, S1, S2, no murmur GI: Abdomen is not distended, soft and non tender, bowel sounds are present : Negative Costovertebral angle tenderness Back/spine/Pelvis: No back tenderness, normal alignment Integumentary: No skin lesions or rash, no report of opened wound Extremities: strength 5/5 to bilateral lower and upper extremities Psych: RASS 0, congruent mood and normal affect. Objective Last Vital Signs Temp 36.9 C 09/23/24 07:16 Pulse 81 09/23/24 07:16 Resp 15 09/23/24 07:16 BP 115/74 09/23/24 07:16 Pulse Ox 98 09/23/24 07:16 Laboratory Results - last 24 hr 09/22/24 09/22/24 09/22/24 08:30 11:42 12:38 WBC 0.37 L* 0.41 L* RBC 2.88 L 3.18 L Hgb 9.1 L 10.1 L Hct 26.9 L 29.6 L MCV 93 93 MCH 31.6 31.8 MCHC 33.8 34.1 RDW 15.9 H 15.8 H Plt Count 111 L 137 MPV 9.3 9.0 Immature Gran % 4.9 Neutrophils % 75.6 Band Neutrophils % Lymphocytes % 9.8 Atypical Lymphs % Monocytes % 7.3 Eosinophils % 0.0 Basophils % 2.4 Metamyelocytes % Myelocytes % Promyelocytes % Other Cells % Nucleated RBC % Absolute Neutrophils 0.31 L* Absolute Lymphocytes 0.04 L Absolute Monocytes 0.03 L Absolute Eosinophils 0.00 Absolute Basophils 0.01 RBC Morphology Polychromasia Hypochromasia Poikilocytosis Basophilic Stippling Anisocytosis Microcytosis Macrocytosis Spherocytes Tear Drop Cells Ovalocytes Stomatocytes [place] Bodies [place] Cells/Echinocytes Acanthocytes (Spur) Schistocytes Sodium Potassium Chloride Carbon Dioxide Anion Gap BUN Creatinine Est GFR (CKD-EPI 2020) Glucose Calcium Magnesium Total Bilirubin AST ALT Alkaline Phosphatase Total Protein Albumin Random Vancomycin 2.2 09/22/24 09/22/24 09/22/24 18:09 18:15 20:36 WBC 0.34 L* Cancelled RBC 2.84 L Cancelled Hgb 9.0 L Cancelled Hct 26.2 L Cancelled MCV 92 Cancelled MCH 31.7 Cancelled MCHC 34.4 Cancelled RDW 15.6 H Cancelled Plt Count 119 L Cancelled MPV 9.5 Cancelled Immature Gran % 5.9 Neutrophils % 58.8 Band Neutrophils % Lymphocytes % 20.6 Atypical Lymphs % Monocytes % 11.8 Eosinophils % 0.0 Basophils % 2.9 Metamyelocytes % Myelocytes % Promyelocytes % Other Cells % Nucleated RBC % 0.0 Absolute Neutrophils 0.20 L* Absolute Lymphocytes 0.07 L Absolute Monocytes 0.04 L Absolute Eosinophils 0.00 Absolute Basophils 0.01 RBC Morphology Normal Polychromasia Hypochromasia Poikilocytosis Basophilic Stippling Anisocytosis Microcytosis Macrocytosis Spherocytes Tear Drop Cells Ovalocytes Stomatocytes [place] Bodies [place] Cells/Echinocytes Acanthocytes ([place]) Schistocytes Sodium Potassium Chloride Carbon Dioxide Anion Gap BUN Creatinine Est GFR (CKD-EPI 2020) Glucose Calcium Magnesium Total Bilirubin AST ALT Alkaline Phosphatase Total Protein Albumin Random Vancomycin 3.9 09/22/24 09/23/24 09/23/24 Unknown 06:20 20:36 WBC RBC Hgb Hct MCV MCH MCHC RDW Plt Count MPV Immature Gran % Cancelled Neutrophils % Cancelled Band Neutrophils % Cancelled Lymphocytes % Cancelled Atypical Lymphs % Cancelled Monocytes % Cancelled Eosinophils % Cancelled Basophils % Cancelled Metamyelocytes % Cancelled Myelocytes % Cancelled Promyelocytes % Cancelled Other Cells % Cancelled Nucleated RBC % Absolute Neutrophils Cancelled Absolute Lymphocytes Cancelled Absolute Monocytes Cancelled Absolute Eosinophils Cancelled Absolute Basophils Cancelled RBC Morphology Cancelled Polychromasia Cancelled Hypochromasia Cancelled Poikilocytosis Cancelled Basophilic Stippling Cancelled Anisocytosis Cancelled Microcytosis Cancelled Macrocytosis Cancelled Spherocytes Cancelled Tear Drop Cells Cancelled Ovalocytes Cancelled Stomatocytes Cancelled [place] Bodies Cancelled [place]ige Cells/Echinocytes Cancelled Acanthocytes ([place]) Cancelled Schistocytes Cancelled Sodium 144 Potassium 3.6 Chloride 108 H Carbon Dioxide 29.0 Anion Gap 7.0 BUN 10 Creatinine 0.9 0.8 Est GFR (CKD-EPI 2020) 104.05 107.82 Glucose 115 H Calcium 8.6 Magnesium 2.0 Total Bilirubin 0.74 AST 10 L ALT 18 Alkaline Phosphatase 54 Total Protein 5.8 L Albumin 2.9 L Random Vancomycin Time Spent with Patient Time Spent with Patient: >50 minutes Time was spent: preparing to see the patient(eg.review tests), obtaining and/or reviewing separately otained hiistory, ordering medications,tests, procedures, referring, communicating with other health spiritual care coordinator, indepentently interpreting results, counseling the patient and care coordination
[2024-09-23 09:43] LABS: Vancomycin, Random 11.2 ug/mL
[2024-09-23 09:59] LABS: HCT 28.1 % (40.0-50.0); HGB 9.5 g/dL (13.5-17.5); MCH 31.5 pg (27.0-33.0); MCHC 33.8 % (32.0-36.0); MCV 93 fL (80-95); MPV 9.8 fL (8.0-11.0); Platelet Count 134 10^3/uL (130-400); RBC 3.02 10^6/uL (4.36-5.78); RDW 15.6 % (11.8-14.1); RDW-SD 53.1 fL
[2024-09-23 10:33] LABS: Absolute Eosinophil Count 0.01 10^3/uL (0.0-0.7); Absolute Lymphocyte Count 0.28 10^3/uL (1.2-3.4); Absolute Monocyte Count 0.09 10^3/uL (0.1-0.8); Bands % 3 %; Diff Comment Manual Differential; RBC Morphology Normal
[2024-09-23 10:35] LABS: Absolute Neutrophil Count 0.08 10^3/uL (1.2-6.7)
[2024-09-23 10:36] LABS: WBC 0.46 10^3/uL (4.4-10.8)
[2024-09-23] MEDS: Loratidine 10 MG TAB PO (10:55)
[2024-09-23] MEDS: DOXYCYCLINE 100 MG in Normal Saline 100 ML IVPB (11:05)
[2024-09-23 11:24] VITALS: BP 123/78; PULSE 87; RESP 15; TEMP 36.8; O2SAT 98
--- NOTE | 2024-09-23 12:02 | PDOC.CMPRO ---
Date of service: 09/23/24 Time of Service: 12:02 Care Management Progress Note Progress Note Text Progress Note Text: Brett was sitting up in bed when CM met with him. He was pleasant and engaged easily with CM. Brett acknowledged that he is feeling much better today. When CM met with him yesterday he was very sleepy and did not fully engage, dozing off to sleep at times. Brett informed CM that he believes he may be able to go home tomorrow, which he is looking forward to. He reported that he will complete his chemotherapy in October and is looking forward to being able to return to work after that. He has been out of work for several months and, although he has been getting short term disability. it has been a challenge financially. Discharge Potential Discharge Needs: PCP F/U Appt and Other (Oncology) Anticipated Barriers to Discharge: Medical Status Patient/Family Education Needs: Review discharge instructions, discuss Ask Me Three Transportation: Private vehicle Plan: Anticipate Brett will be discharged home with no new services when medically cleared. He will follow up with his PCP, Oncologist and plan of care and transport with a friend. CM will follow and continue to support discharge plans. SDOH(Care Management) Screening Will the Patient Participate in the Screening?: Yes Do you worry about having a steady place to live?: no Problems where you live: no known problems In the past 12 months, have you had to go without electric, gas, oil or water in your home?: no Have you or anyone in your house had to go without enough food to eat?: no Has lack of transportation kept you from medical appointments or from doing things needed for daily living?: no Has anyone in your support network made you feel unsafe for any reason?: no
[2024-09-23 14:23] LABS: Vancomycin, Trough 5.9 ug/mL (10.0-20.0)
[2024-09-23] MEDS: VANCOMYCIN/WATER (PEG) 1 GM/200 ML BAG IVPB ×2 (14:40→20:37)
[2024-09-23 15:39] VITALS: BP 114/71; PULSE 83; RESP 15; TEMP 36.4; O2SAT 97
[2024-09-23 19:31] VITALS: BP 116/71; PULSE 87; RESP 18; TEMP 36.2; O2SAT 98
[2024-09-23] MEDS: Famotidine 20 MG/2 ML VIAL IVP (20:06)
[2024-09-23] MEDS: Pantoprazole 40 MG VIAL IVP (20:06)
[2024-09-23] MEDS: Zolpidem 5 MG TAB PO (20:37)
[2024-09-23] MEDS: Normal Saline 1,000 ML 75 ML IV (23:19)
[2024-09-24] MEDS: PIPERACILLIN/TAZO 3.375 GM in Normal Saline 50 ML IVPB ×2 (02:02→08:44)
[2024-09-24 02:29] VITALS: BP 105/63; PULSE 89; RESP 16; TEMP 36.9; O2SAT 95
[2024-09-24] MEDS: VANCOMYCIN/WATER (PEG) 1 GM/200 ML BAG IVPB ×2 (02:39→07:57)
[2024-09-24 07:00] LABS: HCT 28.7 % (40.0-50.0); HGB 9.8 g/dL (13.5-17.5); MCH 31.4 pg (27.0-33.0); MCHC 34.1 % (32.0-36.0); MCV 92 fL (80-95); MPV 9.7 fL (8.0-11.0); Platelet Count 142 10^3/uL (130-400); RBC 3.12 10^6/uL (4.36-5.78); RDW 15.8 % (11.8-14.1); RDW-SD 53.1 fL
[2024-09-24 07:12] LABS: BUN 8 mg/dL (7-18); Calcium 8.7 mg/dL (8.5-10.1); Chloride 106 mmol/L (98-107); Estimated GFR 91.69 (mL/min/1.73m2); Glucose 121 mg/dL (74-106); Potassium 3.5 mmol/L (3.5-5.1); Sodium 141 mmol/L (136-145)
[2024-09-24 07:35] VITALS: BP 113/72; PULSE 87; RESP 15; TEMP 36.4; O2SAT 96
[2024-09-24 07:41] LABS: RBC Morphology Normal
[2024-09-24 07:42] LABS: Absolute Eosinophil Count 0.01 10^3/uL (0.0-0.7); Absolute Monocyte Count 0.26 10^3/uL (0.1-0.8); Bands % 1 %; Diff Comment Manual Differential
[2024-09-24 07:45] LABS: Absolute Neutrophil Count 0.11 10^3/uL (1.2-6.7); WBC 0.88 10^3/uL (4.4-10.8)
[2024-09-24] MEDS: Loratidine 10 MG TAB PO (07:57)
[2024-09-24] MEDS: Sucralfate 1 GM TAB PO ×2 (07:57→12:11)
[2024-09-24] MEDS: Sulfameth/Trimeth DS TAB 1 TAB PO (07:57)
[2024-09-24] MEDS: Senna TAB 1 TAB PO (07:57)
[2024-09-24] MEDS: lamoTRIgine 100 MG TAB 200 MG PO (07:57)
--- NOTE | 2024-09-24 08:27 | PDOC.CMPRO ---
Date of service: 09/24/24 Time of Service: 08:27 Care Management Progress Note Discharge Potential Discharge Needs: PCP F/U Appt and Other (Oncology) Anticipated Barriers to Discharge: Medical Status Patient/Family Education Needs: Review discharge instructions, discuss Ask Me Three Transportation: Private vehicle Plan: Anticipate Brett will be discharged home with no new services when medically cleared. He will follow up with his PCP, Oncologist and plan of care and transport with a friend. CM will follow and continue to support discharge plans. SDOH(Care Management) Screening Will the Patient Participate in the Screening?: Yes Do you worry about having a steady place to live?: no Problems where you live: no known problems In the past 12 months, have you had to go without electric, gas, oil or water in your home?: no Have you or anyone in your house had to go without enough food to eat?: no Has lack of transportation kept you from medical appointments or from doing things needed for daily living?: no Has anyone in your support network made you feel unsafe for any reason?: no
[2024-09-24] MEDS: Normal Saline Flush 10 ML SYR IVP (09:38)
--- NOTE | 2024-09-24 12:16 | PDOC.CMDIS ---
Date of service: 09/24/24 Time of Service: 12:16 LACE Index Scoring Tool Questions: Length of Stay (in days): 2 Was the patient admitted via the E.D.?: Yes Comorbidities: Any Tumor E.D. Visits: 2 Answers: Total Score: 9 Risk of Readmission: Low Risk Care Management Discharge Plan Reason for Hospitalization: neutropenic fever Discharge Plan: Brett will be discharged home with no new services. He will follow up with his community providers and plan of care and transport with family. Patient/Family Education Needs: Review of discharge instructions, limitations, follow up plan, discuss Ask Me Three [facility] Health Related Social Needs: No Data to Display
--- NOTE | 2024-09-24 12:32 | DSE_ITS ---
Date of service: 09/24/24 Time of Service: 12:33 DS: Diagnosis Discharge Diagnosis (1) Severe sepsis: Status: Acute (2) Fever and neutropenia: Status: Acute (3) Sepsis: Status: Acute (4) Acute dehydration: Status: Acute (5) Acute GI bleeding: Status: Acute (6) Esophagitis: Status: Acute (7) Diffuse large B-cell lymphoma: Status: Chronic (8) Depressive disorder: Status: Chronic (9) Seizure, temporal lobe: (10) On deep vein thrombosis (DVT) prophylaxis: Status: Acute (11) Discharge planning issues: Status: Acute Discharge Plan Disposition Patient Disposition: Home Condition: Improving Discharge Details Reason For Visit: Neutropenic fever, Sepsis Admit Date/Time: 09/22/24 02:20 Admit Provider: Shadi Oliveros Attending Provider: Shadi Oliveros Primary Care Provider: Cholo Whitfield Hospital Course Hospital Course: This 48-year-old male patient with a past medical history of B-cell lymphoma on chemotherapy last received 6-day prior to presentation, epilepsy on Vimpat and Lamictal, on prophylactic antibiotic- antiviral as per oncology and taking levofloxacin 500 daily and Bactrim DS every Friday, acyclovir 400 mb Po BID presented to the emergency department at [facility] on 09/21/2024 for evaluation of fevers and frontal headache, bloody stool starting on 09/20/2022 without abdominal pain. Tmax reported to be 103.7. The patient denied dysuria sore throat, neck pain. Patient mentioned contacting Dr. Cheek from oncology at [facility] with recommendation to o go to [facility] but decided to come to [facility] d/t consideration of distance and time. Patient also had receive Neulasta on 09/16/2024 as per nursing at the cancer center here in [facility]. On initial presentation heart rate was over 90 with respiratory rate 22, blood pressure has been as low as 71/34 responding to IV fluid resuscitation. Imaging was negative for any acute findings. Workup in the ED was significant for leukopenia with WBC at 0.89 and neutropenia and ANC at 0.68. H&H was 10.7 and 32.1 from previous 12.2 and 36.2 on 09/15/2024. Chemistry was remarkable for a creatinine of 1.5 with baseline 0.9-1. ED evaluation reveals possible esophagitis with gastritis. The patient was not in acute shock. The hospitalist was consulted and the patient was admitted for neutropenic fever, severe sepsis, GI bleed gastritis, esophagitis, acute kidney injury and dehydration. Blood cultures were drawn and pending. During the stay, the patient continued to receive broad-spectrum antibiotics, IV antiviral, IV fluid. Chronic conditions were managed as per home medicine regimen; patient own's Vimpat was brought in on report of seizure when taking generic medicine. Upon consultation with [facility] infectious disease, Dr. Yang recommended resumption of Bactrim 3 times per week for prophylaxis without any other changes in therapy and recommendation for 48-72 hours stay in the setting of negative blood cultures and clinical improvement. On 09/23/2024, recommendation from the oncology fellow Dr. Rubi at [facility] is for keeping the patient until 09/24/2024 if blood cultures remain negative with clinical improvement; also noted improved WBC and eosinophils pointing to the begening of granulocytes formation. H&H remained stable indicative of no urgent need for EGD or colonoscopy need despite mention of intermittent passing of bloody stool. Subcutaneous heparin for DVT prophylaxis was discontinued and the patient initiated on TEDs. Blood cultures are negative x 48 hours, WBC at 0.88 with ANC improving to 0.11?were as low as 0.08. Patient has been afebrile for over 48 hours with normotension. The patient will be discharged home and will have to continue is a prophylaxis regimen of antibiotics and antiviral as per oncology provider. The patient will have to follow-up with his primary care practitioner within 7 days of discharge and will have a referral for surgical consult for intermittent passing of bloody stool. Education on neutropenia given to patient and patient also made aware that he should maintain neutropenic precautions until seen by his primary care provider. Follow-up CBC with differential ordered with critical to be reported to primary care provider. Discussed with Dr. Ansari Home Meds and New Rx's Prescriptions: New famotidine 20 mg tablet 20 mg PO DAILY Qty: 30 0RF sucralfate 1 gram tablet 1 g PO QACHS Qty: 120 0RF Continued lamotrigine 200 mg tablet 200 mg PO BID Qty: 180 3RF Vimpat 200 mg tablet 100 mg PO BID Qty: 90 1RF ibuprofen 200 mg capsule 400 mg PO TID-QID PRN acyclovir 400 mg tablet 400 mg PO BID allopurinol 300 mg tablet 300 mg PO DAILY ondansetron 8 mg tablet,disintegrating 8 mg PO Q8H PRN prochlorperazine maleate [Compazine] 10 mg tablet 10 mg PO Q6H PRN PRN sennosides [senna] 8.6 mg tablet 8.6 mg PO QD-BID PRN omeprazole 20 mg capsule,delayed release(DR/EC) 20 mg PO DAILY loratadine [Claritin] 10 mg tablet 10 mg PO DAILY Held prednisone 50 mg tablet 100 mg PO DAILY Hold Instructions: Resume on 09/30/24. Discussed with oncology- therapy had ended prior to presentation Discharge Instructions Referrals: [facility] [OTHER] - (Intermittent hematochezia with slow down trend in H&H. Hx of B-cell lymphoma on chemo) Cholo Whitfield [Primary Care Provider] - (F/u within 7 days of discharge ) Activity:: Activity as Tolerated Equipment/Supplies:: No Equipment Needed Diet:: Neutropenic precaution Discharge Orders Discharge Orders: Discharge Order (Routine); Ordered 09/24/24 Ordered By: Joyce Bucio Ambulatory Orders: Complete Blood Count w/Diff (Routine) Timeframe: 20240922 Facility: [facility] - Location: Laboratory Outpatient - [facility] Ordered By: Joyce Bonilla DS: Summary Time Spent with Patient providing and/or coordinating discharge services: Greater than 30 minutes Status at Discharge Functional status at discharge: independent ambulation Overall status at discharge: patient is progressing back to baseline Mental Status: mental status grossly normal Speech and Movement: speech and movement normal Mood: congruent mood Affect: normal affect Quality:SDOH Health Related Social Needs: No Data to Display Exam Narrative Exam Narrative: Constitutional The patient is without acute distress HENMT: Facial structures with normal appearance Neck:No meningeal signs Neuro:alert and oriented X 4. No neurological focal deficit Chest:Accessed port to left chest wall Resp: Clear lung bilaterally Cardio: regular rhythm, S1, S2, no murmur GI: Abdomen is not distended, soft and non tender, bowel sounds are present : Negative Costovertebral angle tenderness Back/spine/Pelvis: No back tenderness, normal alignment, healed surgical scar to mid lower back Integumentary: No skin lesions or rash, no report of opened wound- old left knee abrasion- healing Extremities: strength 5/5 to bilateral lower and upper extremities Psych: RASS 0, congruent mood and normal affect. Psych Mental Status: mental status grossly normal Speech and Movement: speech and movement normal Mood: congruent mood Affect: normal affect DS: Data Vitals/I&O Vitals and I&O: Vital Signs Temperature 36.4 C L 09/24/24 07:35 Temperature Source Skin 09/24/24 07:35 Pulse 87 09/24/24 07:35 Pulse Rhythm Regular 09/22/24 04:44 Respiratory Rate 15 09/24/24 07:35 Respiratory Effort Normal, Non-Labored 09/22/24 04:44 Respiratory Depth Normal 09/22/24 04:44 Respiratory Pattern Normal 09/21/24 22:43 Blood Pressure 113/72 09/24/24 07:35 Blood Pressure Position Sitting 09/21/24 22:39 Pulse Oximetry 96 09/24/24 07:35 Oxygen Delivery Method Room Air 09/24/24 07:35 Oxygen Flow Rate 0 09/24/24 07:35 Pain Level 3 09/24/24 07:35 Comment c/o joint pain 09/24/24 07:35 Intake & Output 09/23/24 09/24/24 09/24/24 23:59 11:59 23:59 Intake Total 1100 / 1655 750 / 750 Balance 1100 / 430 750 / 750 Intake: IV 1100 / 1655 750 / 750 Other: Comment reports he has voided frequently in the last 24 hours since last chart. Data Completed and Pending Labs on day of discharge: Labs from last 24 hours 09/24/24 09/23/24 06:03 13:30 WBC 0.88 L* RBC 3.12 L Hgb 9.8 L Hct 28.7 L MCV 92 MCH 31.4 MCHC 34.1 RDW 15.8 H Plt Count 142 MPV 9.7 Immature Gran % 0.0 Neutrophils % 11.0 Band Neutrophils % 1 Lymphocytes % 57.0 Monocytes % 30.0 Eosinophils % 1.0 Basophils % 0.0 Nucleated RBC % 0.0 Absolute Neutrophils 0.11 L* Absolute Lymphocytes 0.50 L Absolute Monocytes 0.26 Absolute Eosinophils 0.01 Absolute Basophils 0.00 RBC Morphology Normal Sodium 141 Potassium 3.5 Chloride 106 Carbon Dioxide 29.0 Anion Gap 6.0 BUN 8 Creatinine 1.0 Est GFR (CKD-EPI 2020) 91.69 Glucose 121 H Calcium 8.7 Vancomycin Trough 5.9 L Preliminary micro results at discharge 09/21/24 22:55 Blood Culture - Preliminary Blood NO GROWTH 48 HOURS 09/21/24 22:45 Blood Culture - Preliminary Blood NO GROWTH 48 HOURS PFSH All Active Problems (Updated 09/23/24 @ 11:50 by Joyce Bonilla APRN) Discharge planning issues (Acute) On deep vein thrombosis (DVT) prophylaxis (Acute) Severe sepsis (Acute) Acute dehydration (Acute) Diffuse large B-cell lymphoma (Chronic) Sepsis (Acute) Acute GI bleeding (Acute) Esophagitis (Acute) Fever and neutropenia (Acute) Lymphoma (Acute) Depressive disorder (Chronic) Hand paresthesia (Acute) Wax in ear (Acute) Fatigue (Acute) Memory loss (Acute) Partial epilepsy (Acute) New onset headache (Acute) Medical History (Updated 09/23/24 @ 11:50 by Joyce Bonilla APRN) Seizure, temporal lobe Lazy eye Surgical History History of cranial surgery L temporal lobectomy for seizures H/O vasectomy History of back surgery x3 at [facility]; last in 2003? Family History Father Diabetes Mother Alzheimer disease Sister Diabetes Social History Smoking/Tobacco Use Status: Never Smoking risk assessment performed?: Yes Alcohol Intake: never Details: OCCASTIONAL Substance use type: marijuana Details: CBD pen Household members: significant other Housing: apartment Number of Children: 3 current occupation: [employer] What is your relationship status?: Panel score (0-1 are the most socially isolated patients): 0 What type of physical activity do you participate in: walking Seatbelt use: always Do you feel safe at home: Yes Do you feel safe in your relationship?: Yes Time Spent with Patient Time Spent with Patient: 70-84 minutes4 Time was spent: preparing to see the patient(eg.review tests), obtaining and/or reviewing separately otained hiistory, ordering medications,tests, procedures, referring, communicating with other health patient care representative, indepentently interpreting results, counseling the patient and care coordination
[2024-09-24 13:59] LABS: Vancomycin, Trough 15.8 ug/mL (10.0-20.0)
== END 2024-09-24 14:27 | disposition home or self-care (01) | DRG 871 ==
LOC: ER 09-22 04:31 → MS 09-22 04:34
PROVIDERS: General Practice; Nurse Practitioner Acute Care; Admitting Provider Family Medicine; Emergency Provider Student in an Organized Health Care Education/Training Program; PCP Internal Medicine; Visit Provider Family Medicine
DX: A41.9 Sepsis, unspecified organism (principal); K20.91 Esophagitis, unspecified with bleeding; K29.01 Acute gastritis with bleeding; C83.31 Diffuse large B-cell lymphoma, lymph nodes of head, face, and neck; G40.109 Localization-related (focal) (partial) symptomatic epilepsy and epileptic syndromes with simple partial seizures, not intractable, without status epilepticus; D84.821 Immunodeficiency due to drugs; D70.9 Neutropenia, unspecified; R65.20 Severe sepsis without septic shock; R50.81 Fever presenting with conditions classified elsewhere; E86.0 Dehydration; F32.A Depression, unspecified; Z79.899 Other long term (current) drug therapy; R51.9 Headache, unspecified; Z79.69 Long term (current) use of other immunomodulators and immunosuppressants
CPT/HCPCS: 00123; 36415; 74177; 80048; 80053; 84145; 85027; 87040; 87637; 96365; 96366; 96367; 96375; 99291; 71260; 80202; 81003; 82565; 83605; 83735; 85007; 85025; 85610; 85730; 99223; 99233; 99239; J0131; J0133; J0456; J1644; J2470; J2543; J3370; J3372; J3490; J7512

== ENCOUNTER 2024-09-29 10:26 | Outpatient (CLI) | payer BC, SELFPAY ==
[2024-09-29 10:02] LABS: HCT 34.4 % (40.0-50.0); HGB 11.7 g/dL (13.5-17.5); MCV 94 fL (80-95); MPV 9.1 fL (8.0-11.0); Platelet Count 253 10^3/uL (130-400); RBC 3.66 10^6/uL (4.36-5.78); RDW 18.7 % (11.8-14.1); RDW-SD 62.4 fL
[2024-09-29 10:53] LABS: Absolute Lymphocyte Count 1.31 10^3/uL (1.2-3.4); Absolute Monocyte Count 0.66 10^3/uL (0.1-0.8); Atypical Lymphocytes % 1 %; Bands % 8 %; Diff Comment Manual Differential; Metamyelocytes % 4; RBC Morphology Normal
== END 2024-09-29 10:27 | disposition home or self-care (01) ==
LOC: LBO 10:27
PROVIDERS: PCP Internal Medicine; Visit Provider Nurse Practitioner Acute Care
DX: D70.9 Neutropenia, unspecified (principal); R50.81 Fever presenting with conditions classified elsewhere; C85.90 Non-Hodgkin lymphoma, unspecified, unspecified site
CPT/HCPCS: 36415; 85025

== ENCOUNTER 2024-10-27 07:15 | Outpatient (RCR) | payer BC, SELFPAY ==
[2024-10-06] MEDS: Normal Saline Flush 10 ML SYR IVP (08:15)
[2024-10-06 08:28] LABS: Abs Immature Grans 0.08 10^3/uL (0.0-0.06); Absolute Basophil Count 0.06 10^3/uL (0.0-0.2); Absolute Eosinophil Count 0.01 10^3/uL (0.0-0.7); Absolute Lymphocyte Count 0.65 10^3/uL (1.2-3.4); Absolute Monocyte Count 0.68 10^3/uL (0.1-0.8); Absolute Neutrophil Count 3.32 10^3/uL (1.2-6.7); Basophils % 1.3 %; Eosinophils % 0.2 %; HCT 34.4 % (40.0-50.0); HGB 11.8 g/dL (13.5-17.5); Immature Grans % 1.7 %; Lymphocytes % 13.5 %; MCH 32.4 pg (27.0-33.0); MCHC 34.3 % (32.0-36.0); MCV 95 fL (80-95); MPV 9.4 fL (8.0-11.0); Monocytes % 14.2 %; Neutrophils % 69.1 %; Platelet Count 336 10^3/uL (130-400); RBC 3.64 10^6/uL (4.36-5.78); RDW 17.2 % (11.8-14.1); RDW-SD 59.6 fL
[2024-10-06 09:23] LABS: ALT 32 U/L (16-63); AST 16 U/L (15-37); Albumin 3.5 g/dL (3.4-5.0); Alkaline Phosphatase 57 U/L (46-116); Anion Gap 9.5 mmol/L (3-11); BUN 14 mg/dL (7-18); Bilirubin, Total 0.56 mg/dL (0.2-1.0); CO2 28.5 mmol/L (21.0-32.0); Calcium 8.8 mg/dL (8.5-10.1); Chloride 107 mmol/L (98-107); Estimated GFR 91.69 (mL/min/1.73m2); Glucose 105 mg/dL (74-106); Potassium 3.7 mmol/L (3.5-5.1); Sodium 145 mmol/L (136-145); Total Protein 6.9 g/dL (6.4-8.2)
[2024-10-06 09:38] LABS: LDH 217 U/L (85-227); Uric Acid 4.6 mg/dL (3.5-7.2)
[2024-10-27 07:26] LABS: Abs Immature Grans 0.07 10^3/uL (0.0-0.06); Absolute Basophil Count 0.06 10^3/uL (0.0-0.2); Absolute Eosinophil Count 0.03 10^3/uL (0.0-0.7); Absolute Lymphocyte Count 0.56 10^3/uL (1.2-3.4); Absolute Monocyte Count 0.57 10^3/uL (0.1-0.8); Absolute Neutrophil Count 4.12 10^3/uL (1.2-6.7); Basophils % 1.1 %; Eosinophils % 0.6 %; HCT 36.4 % (40.0-50.0); HGB 12.2 g/dL (13.5-17.5); Immature Grans % 1.3 %; Lymphocytes % 10.4 %; MCHC 33.5 % (32.0-36.0); MCV 96 fL (80-95); MPV 9.3 fL (8.0-11.0); Monocytes % 10.5 %; Neutrophils % 76.1 %; Platelet Count 296 10^3/uL (130-400); RBC 3.81 10^6/uL (4.36-5.78); RDW 15.5 % (11.8-14.1); RDW-SD 54.1 fL; WBC 5.41 10^3/uL (4.4-10.8)
[2024-10-27] MEDS: Normal Saline Flush 10 ML SYR IVP (07:28)
[2024-10-27 07:43] LABS: ALT 27 U/L (16-63); AST 12 U/L (15-37); Albumin 3.6 g/dL (3.4-5.0); Alkaline Phosphatase 68 U/L (46-116); Anion Gap 9.3 mmol/L (3-11); BUN 9 mg/dL (7-18); Bilirubin, Total 0.58 mg/dL (0.2-1.0); CO2 28.7 mmol/L (21.0-32.0); CREATININE 1.1 mg/dL (0.70-1.30); Chloride 106 mmol/L (98-107); Estimated GFR 81.28 (mL/min/1.73m2); Glucose 121 mg/dL (74-106); LDH 222 U/L (85-227); Potassium 3.8 mmol/L (3.5-5.1); Sodium 144 mmol/L (136-145); Total Protein 7.1 g/dL (6.4-8.2); Uric Acid 4.2 mg/dL (3.5-7.2)
== END 2024-10-30 23:59 | disposition home or self-care (01) ==
LOC: INF 07:15
PROVIDERS: PCP Internal Medicine; Visit Provider Nurse Practitioner Adult Health
DX: Z45.2 Encounter for adjustment and management of vascular access device (principal); C85.90 Non-Hodgkin lymphoma, unspecified, unspecified site
CPT/HCPCS: 36591; 80053; 83615; 84550; 85025

== ENCOUNTER 2024-11-17 04:05 | Outpatient (RCR) | payer BC, SELFPAY ==
[2024-11-17] MEDS: Normal Saline Flush 10 ML SYR IVP (08:11)
[2024-11-17 08:19] LABS: Abs Immature Grans 0.08 10^3/uL (0.0-0.06); Absolute Basophil Count 0.05 10^3/uL (0.0-0.2); Absolute Eosinophil Count 0.01 10^3/uL (0.0-0.7); Absolute Lymphocyte Count 0.49 10^3/uL (1.2-3.4); Absolute Monocyte Count 0.54 10^3/uL (0.1-0.8); Absolute Neutrophil Count 3.16 10^3/uL (1.2-6.7); Basophils % 1.2 %; Eosinophils % 0.2 %; HCT 35.2 % (40.0-50.0); HGB 11.8 g/dL (13.5-17.5); Immature Grans % 1.8 %; Lymphocytes % 11.3 %; MCH 31.8 pg (27.0-33.0); MCHC 33.5 % (32.0-36.0); MCV 95 fL (80-95); Monocytes % 12.5 %; Platelet Count 296 10^3/uL (130-400); RBC 3.71 10^6/uL (4.36-5.78); RDW 15.1 % (11.8-14.1); WBC 4.33 10^3/uL (4.4-10.8)
[2024-11-17 08:50] LABS: ALT 31 U/L (16-63); AST 12 U/L (15-37); Albumin 3.7 g/dL (3.4-5.0); Alkaline Phosphatase 65 U/L (46-116); Anion Gap 7.6 mmol/L (3-11); BUN 13 mg/dL (7-18); Bilirubin, Total 0.48 mg/dL (0.2-1.0); CO2 30.4 mmol/L (21.0-32.0); Calcium 8.9 mg/dL (8.5-10.1); Chloride 106 mmol/L (98-107); Estimated GFR 91.12 (mL/min/1.73m2); Glucose 114 mg/dL (74-106); LDH 283 U/L (85-227); Sodium 144 mmol/L (136-145); Total Protein 6.9 g/dL (6.4-8.2); Uric Acid 4.7 mg/dL (3.5-7.2)
== END 2024-11-30 23:59 | disposition home or self-care (01) ==
LOC: INF 04:05
PROVIDERS: PCP Internal Medicine; Visit Provider Nurse Practitioner Adult Health
DX: C85.90 Non-Hodgkin lymphoma, unspecified, unspecified site (principal); Z45.2 Encounter for adjustment and management of vascular access device
CPT/HCPCS: 36591; 80053; 83615; 84550; 85025

== ENCOUNTER 2024-12-17 00:19 | Outpatient (CLI) | payer BC, SELFPAY ==
--- NOTE | 2024-12-17 14:59 | DI.US_ITS ---
APPROVED REPORT EXAM: Comprehensive 2D, Doppler, and color-flow Echocardiogram Patient Location: Out-Patient Food Service Manager: Rica Casillas RDCS (AE) Indications: S/P administration of cardiotoxic chemotherapy Other Information Study Quality: Adequate Conclusion Normal left ventricular wall thickness and chamber size. Ejection fraction is 55 to 60%. Wall motio n is normal Normal right ventricular size and function Both atria are normal in size There are no structural valvular abnormalities There is mild to moderate eccentric mitral regurgitation Estimated right ventricular systolic pressure is 27 mmHg Wall motion Left Ventricle The left ventricle is normal size. The left ventricular systolic function is normal. The left ventric ular ejection fraction is within the normal range. GLS 18% There is normal left ventricular wall thic kness. There is normal LV segmental wall motion. There is no ventricular septal defect visualized. LV EF is 55-60%. Right Ventricle The right ventricle is normal size. The right ventricular systolic function is normal. Atria The left atrium size is normal. The right atrium size is normal. The interatrial septum is intact wit h no evidence for an atrial septal defect. Aortic Valve The aortic valve is normal in structure. Aortic valve is trileaflet. There is no aortic valvular sten osis. No aortic regurgitation is present. Mitral Valve The mitral valve is normal in structure. No evidence of mitral valve stenosis. Mild to moderate samir l regurgitation. Tricuspid Valve The tricuspid valve is normal in structure. There is no tricuspid valve stenosis. Trace tricuspid reg urgitation. The RVSP is 26.8 mmHg. Pulmonic Valve The pulmonary valve is normal in structure. There is no pulmonic valvular stenosis. There is no pulmo jeannie valvular regurgitation. Great Vessels The aortic root is normal in size. The ascending aorta is normal in size. Aortic arch is normal in ca liber. IVC is normal in size and collapses >50% with inspiration. Pericardium There is no pericardial effusion. 2D Dimensions IVSD d PLAX 0.90 cm M: 0.6-1.2 Ao Root d 2.97 cm M: 3.1 - 3.7 LVPW d PLAX 0.90 cm M: 0.6 - 1.2 Ao Asc Diam d 3.04 cm M: 2.6 - 3.4 LVID d PLAX 4.52 cm M: 4.2 - 5.8 LVDs 3.10 cm M: 2.5 - 4.0 LV EF Teichholz 59.2 % FS 31.28 % LV EDV (Teich) 93.3 mL LV ESV (Teich) 38.1 mL M-Mode TAPSE 2.40 cm (M/F) >1.7 Auto EF LV EDV A4C 107.2 mL LV EDV A2C 133.0 mL LV EDV BP 120.4 mL LV ESV A4C 54.4 mL LV ESV A2C 58.2 mL LV ESV BP 57.0 mL LVEF(%) A4C 49.3 % LVEF(%) A2C 56.2 % LVEF(%) BP 52.6 % LV SV A4C 52.8 ml LV SV A2C 74.7 ml LV SV BP 63.4 ml LV CO A4C 4.0 L/min LV CO A2C 5.4 L/min LV CO BP 4.7 L/min HR A4C 75.31 BPM HR A2C 72.58 BPM LV EDV Index (BP) LV Strain Long Pk Overal Avg (s) 18.02 LA Volume LA Length A4C 4.9 cm LA Length A2C 4.8 cm LA Area A4C s 17.33 cm2 LA Area A2C s 17.86 cm2 LA Vol A4C A-L 51.95 mL LA Vol A2C A-L 56.87 mL LA Vol Biplane A-L 55.2 mL LA Vol/BSA A4C A-L LA Vol/BSA A2C A-L LA Vol/BSA BP A-L 27.0 mL/m2 LA Vol A4C MOD 48.4 mL LA Vol A2C MOD 53.1 mL LA Vol BP MOD 51.3 mL RA Volume RA Area A4C 12.9 cm2 RA ESV A4C (A-L) 31.3mL RA Vol/BSA A4C A-L RA Length A4C 4.5 cm RA ESV A4C (MOD) 28.8mL LV Diastology MV E' medial 0.108 (>0.07 m/s) MV E Vmax 0.95 (0.4-1.3 m/s) MV E/E' MED 8.75 (<14) MV A Vmax 0.95 (0.4-1.3 m/s) MV E' lateral 0.108 (>0.1 m/s) E/A Ratio 1.0 MV E/E' LAT 8.75 (<14) MV E' Average 0.108 m/s MV E/E'(average) 8.75 Aortic Valve AoV Vmax 1.21 m/s LVOT Vmax 0.89 m/s AoV Peak Grad 5.9 mmHg LVOT Peak Grad 3.2 mmHg AoV Area (Vmax) 2.23 cm2 LVOT VTI 0.182 m AoV VTI 0.271 m LVOT Mean Grad 1.8 mmHg AoV Mean Chuckie. 0.92 m/s LVOT SV 54.96 mL AoV Mean Grad 3.8 mmHg LVOT Diam s 1.95 cm AoV Area (VTI) 2.03 cm2 AV Regurg Peak Gr. 5.89 mmHg Velocity Ratio 0.74 Mitral Valve MV DT 137 (160-240 msec) MV Vmax TIPS 1.04 m/s MV Mean Grad 2.0 (<2mmHg) MV VTI 0.304 m Pulmonary Valve PV Vmax 1.33 (0.5-1.5 m/s) RVOT Vmax 0.65 m/s PV Peak Grad 7.1 mmHg RVOT Peak Gr. 1.7 mmHg PV Mean Chuckie 0.99 m/s RVOT VTI 0.136 m PV Mean Grad 4.2 mmHg RVOT Mean Gr. 1.0 mmHg Tricuspid Valve RA Pressure 3.00 mmHg TR Vmax 2.44 m/s TV S' 0.19 m/s TR Peak Grad 23.8 mmHg RVSP (TR) 26.8 mmHg
== END 2024-12-17 00:39 ==
LOC: DI 00:19
PROVIDERS: PCP Neuromusculoskeletal Medicine & OMM; Visit Provider Nurse Practitioner Adult Health
DX: Z79.69 Long term (current) use of other immunomodulators and immunosuppressants; I34.0 Nonrheumatic mitral (valve) insufficiency
CPT/HCPCS: 93306

== ENCOUNTER 2025-01-05 01:03 | Outpatient (CLI) | payer BC, SELFPAY ==
[2025-01-05 14:22] LABS: Abs Immature Grans 0.01 10^3/uL (0.0-0.06); Absolute Basophil Count 0.02 10^3/uL (0.0-0.2); Absolute Eosinophil Count 0.21 10^3/uL (0.0-0.7); Absolute Lymphocyte Count 0.44 10^3/uL (1.2-3.4); Absolute Monocyte Count 0.42 10^3/uL (0.1-0.8); Basophils % 0.9 %; Eosinophils % 9.1 %; HCT 36.1 % (40.0-50.0); HGB 11.6 g/dL (13.5-17.5); Immature Grans % 0.4 %; Lymphocytes % 19.1 %; MCH 29.7 pg (27.0-33.0); MCHC 32.1 % (32.0-36.0); MCV 93 fL (80-95); MPV 8.9 fL (8.0-11.0); Monocytes % 18.3 %; Neutrophils % 52.2 %; Platelet Count 242 10^3/uL (130-400); RDW 13.9 % (11.8-14.1); RDW-SD 47.4 fL
[2025-01-05 14:39] LABS: ALT 35 U/L (16-63); AST 20 U/L (15-37); Albumin 3.6 g/dL (3.4-5.0); Alkaline Phosphatase 58 U/L (46-116); Amylase 74 U/L (25-115); Anion Gap 2.2 mmol/L (3-11); BUN 10 mg/dL (7-18); Bilirubin, Total 0.57 mg/dL (0.2-1.0); CO2 33.8 mmol/L (21.0-32.0); Calcium 8.7 mg/dL (8.5-10.1); Chloride 109 mmol/L (98-107); Estimated GFR 91.12 (mL/min/1.73m2); Glucose 88 mg/dL (74-106); LDH 261 U/L (85-227); Lipase 35 U/L (<78); Potassium 4.2 mmol/L (3.5-5.1); Sodium 145 mmol/L (136-145); Total Protein 6.4 g/dL (6.4-8.2); Uric Acid 4.1 mg/dL (3.5-7.2)
== END 2025-01-05 01:04 | disposition home or self-care (01) ==
LOC: LBO 01:04
PROVIDERS: PCP Neuromusculoskeletal Medicine & OMM; Visit Provider Nurse Practitioner Adult Health
DX: C85.90 Non-Hodgkin lymphoma, unspecified, unspecified site (principal); Z79.899 Other long term (current) drug therapy; C83.38 Diffuse large B-cell lymphoma, lymph nodes of multiple sites
CPT/HCPCS: 36415; 80053; 83690; 82150; 83615; 84550; 85025

== ENCOUNTER 2025-04-06 10:23 | Outpatient (CLI) | payer BC, SELFPAY ==
[2025-04-06 10:22] LABS: Abs Immature Grans 0.01 10^3/uL (0.0-0.06); Absolute Basophil Count 0.03 10^3/uL (0.0-0.2); Absolute Eosinophil Count 0.15 10^3/uL (0.0-0.7); Absolute Lymphocyte Count 0.73 10^3/uL (1.2-3.4); Absolute Monocyte Count 0.39 10^3/uL (0.1-0.8); Absolute Neutrophil Count 1.46 10^3/uL (1.2-6.7); Basophils % 1.1 %; Eosinophils % 5.4 %; HCT 39.5 % (40.0-50.0); HGB 13.7 g/dL (13.5-17.5); Immature Grans % 0.4 %; Lymphocytes % 26.4 %; MCH 29.8 pg (27.0-33.0); MCHC 34.7 % (32.0-36.0); MCV 86 fL (80-95); MPV 8.9 fL (8.0-11.0); Monocytes % 14.1 %; Neutrophils % 52.6 %; Platelet Count 218 10^3/uL (130-400); RBC 4.59 10^6/uL (4.36-5.78); RDW 14.7 % (11.8-14.1); RDW-SD 46.3 fL; WBC 2.77 10^3/uL (4.4-10.8)
[2025-04-06 10:38] LABS: ALT 27 U/L (16-63); AST 19 U/L (15-37); Alkaline Phosphatase 78 U/L (46-116); Amylase 75 U/L (25-115); Anion Gap 8.7 mmol/L (3-11); BUN 15 mg/dL (7-18); Bilirubin, Total 0.9 mg/dL (0.2-1.0); CO2 28.3 mmol/L (21.0-32.0); CREATININE 1.1 mg/dL (0.70-1.30); Calcium 8.9 mg/dL (8.5-10.1); Chloride 105 mmol/L (98-107); Estimated GFR 81.28 (mL/min/1.73m2); Glucose 109 mg/dL (74-106); LDH 206 U/L (85-227); Lipase 23 U/L (<78); Sodium 142 mmol/L (136-145); Total Protein 7.1 g/dL (6.4-8.2); Uric Acid 4.5 mg/dL (3.5-7.2)
== END 2025-04-06 10:24 | disposition home or self-care (01) ==
LOC: LBO 10:23
PROVIDERS: PCP Neuromusculoskeletal Medicine & OMM; Visit Provider Nurse Practitioner Adult Health
DX: C85.90 Non-Hodgkin lymphoma, unspecified, unspecified site (principal); Z79.899 Other long term (current) drug therapy; C83.38 Diffuse large B-cell lymphoma, lymph nodes of multiple sites
CPT/HCPCS: 36415; 80053; 83690; 82150; 83615; 84550; 85025

== ENCOUNTER 2025-07-20 03:03 | Outpatient (CLI) | payer BC, SELFPAY ==
[2025-07-20 10:15] LABS: Abs Immature Grans 0.01 10^3/uL (0.0-0.06); HCT 39.2 % (40.0-50.0); HGB 13.5 g/dL (13.5-17.5); Immature Grans % 0.3 %; MCH 30.9 pg (27.0-33.0); MCHC 34.4 % (32.0-36.0); MCV 90 fL (80-95); MPV 9.3 fL (8.0-11.0); Platelet Count 211 10^3/uL (130-400); RBC 4.37 10^6/uL (4.36-5.78); RDW 13.2 % (11.8-14.1); RDW-SD 43.5 fL; WBC 3.53 10^3/uL (4.4-10.8)
[2025-07-20 10:33] LABS: ALT 32 U/L (16-63); AST 18 U/L (15-37); Albumin 4.1 g/dL (3.4-5.0); Alkaline Phosphatase 64 U/L (46-116); Anion Gap 6.1 mmol/L (3-11); BUN 15 mg/dL (7-18); Bilirubin, Total 0.8 mg/dL (0.2-1.0); CO2 31.9 mmol/L (21.0-32.0); Calcium 9.0 mg/dL (8.5-10.1); Chloride 105 mmol/L (98-107); Estimated GFR 91.12 (mL/min/1.73m2); Glucose 97 mg/dL (74-106); LDH 211 U/L (85-227); Potassium 4.2 mmol/L (3.5-5.1); Sodium 143 mmol/L (136-145); Total Protein 7.2 g/dL (6.4-8.2)
== END 2025-07-20 03:04 | disposition home or self-care (01) ==
LOC: LBO 03:03
PROVIDERS: PCP Neuromusculoskeletal Medicine & OMM; Visit Provider Internal Medicine Hematology & Oncology
DX: C83.38 Diffuse large B-cell lymphoma, lymph nodes of multiple sites (principal)
CPT/HCPCS: 36415; 80053; 83615; 85025

== ENCOUNTER 2025-08-22 07:24 | Outpatient (CLI) | payer BC, SELFPAY ==
--- NOTE | 2025-08-22 07:00 | DI.RAD_ITS ---
Exam(s) XR FOOT LT COMPLETE EXAM: XR FOOT LT COMPLETE CLINICAL HISTORY: Left foot pain,[id number]. TECHNIQUE: 2D digital imaging was performed of the left foot. Three images were obtained. AP, oblique and lateral views were obtained. COMPARISON: No exams were available for comparison FINDINGS: BONES: No acute fracture is present. No bony destructive lesion is seen. There is a small enthesophyte at the posterior calcaneus. There is a small plantar calcaneal spur. JOINTS: No dislocation present. There [id number] degenerative changes seen at the 1st MTP joint characterized by joint space narrowing and osteophytes. SOFT TISSUE: Normal. IMPRESSION: 1. [id number] degenerative changes seen at the 1st MTP joint. 2. Calcaneal spurs. DATA REPOSITORY: RADIATION DOSE DELIVERED:
== END 2025-08-22 07:44 ==
PROVIDERS: PCP Neuromusculoskeletal Medicine & OMM; Visit Provider Podiatrist
DX: M19.072 Primary osteoarthritis, left ankle and foot (principal); M77.32 Calcaneal spur, left foot
CPT/HCPCS: 73630

== ENCOUNTER 2025-11-02 01:29 | Outpatient (CLI) | payer BC, SELFPAY ==
[2025-11-02 12:37] LABS: Abs Immature Grans 0.01 10^3/uL (0.0-0.06); HCT 40.3 % (40.0-50.0); HGB 13.6 g/dL (13.5-17.5); Immature Grans % 0.3 %; MCH 30.5 pg (27.0-33.0); MCHC 33.7 % (32.0-36.0); MCV 90 fL (80-95); MPV 9.0 fL (8.0-11.0); Platelet Count 233 10^3/uL (130-400); RBC 4.46 10^6/uL (4.36-5.78); RDW 13.0 % (11.8-14.1); RDW-SD 42.5 fL; WBC 3.49 10^3/uL (4.4-10.8)
[2025-11-02 12:57] LABS: LDH 216 U/L (120-246)
[2025-11-02 12:58] LABS: ALT 25 U/L (10-49); AST 21 U/L (<34); Albumin 4.3 g/dL (3.2-5.0); Alkaline Phosphatase 66 U/L (46-116); Anion Gap 7.5 mmol/L (3-11); BUN 13 mg/dL (9-23); Bilirubin, Total 0.50 mg/dL (0.2-1.2); CO2 28.5 mmol/L (20.0-31.0); Calcium 9.4 mg/dL (8.3-10.6); Chloride 108 mmol/L (98-107); Glucose 87 mg/dL (74-106); Potassium 4.2 mmol/L (3.5-5.1); Sodium 144 mmol/L (136-145); Total Protein 7.1 g/dL (5.7-8.2)
[2025-11-02 16:11] LABS: TSH 0.90 uIU/mL (0.55-4.78); Vitamin D 25 Total 27 ng/mL (30-100)
[2025-11-02 16:12] LABS: Vitamin B12 584 pg/mL (211-911)
== END 2025-11-02 01:30 | disposition home or self-care (01) ==
LOC: LBO 01:29
PROVIDERS: Nurse Practitioner Adult Health; PCP Neuromusculoskeletal Medicine & OMM; Visit Provider Internal Medicine Hematology & Oncology
DX: C83.38 Diffuse large B-cell lymphoma, lymph nodes of multiple sites (principal); R53.83 Other fatigue
CPT/HCPCS: 36415; 80053; 82306; 84403; 82607; 83615; 84443; 85025